=== PATIENT | female | born 1990 | race Caucasian/White ===

== ENCOUNTER 2018-08-10 01:41 | Emergency (ER) | payer SELFPAY ==
[2018-08-10] MEDS ORDERED: NA CHLORIDE 0.9% 1,000 ML ONE (02:25)
[2018-08-10 02:32] LABS: Specific Gravity 1.025 (1.005-1.030)
[2018-08-10 03:03] LABS: Absolute Lymphocytes (CBC) 2.4 K/uL (0.7-4.9); Absolute Monocytes 0.6 K/uL (0.1-1.3); Absolute Neutrophil 4.3 K/uL (1.8-8.0); Eosinophils % 8.4 % (0-4.4); Lymphocytes % 29.4 % (15.3-44.8); Monocytes % 7.8 % (3.3-12.3); RBC Red Blood Cell Count 4.82 M/uL (3.86-4.86)
[2018-08-10 03:20] LABS: Albumin 3.7 g/dL (3.4-5.0); Bilirubin Total 0.3 mg/dL (0.2-1.0); Potassium 3.9 mmol/L (3.5-5.1); Protein, Total 7.5 g/dL (6.4-8.2)
--- NOTE | 2018-08-10 03:33 | EDPHYS ---
Physician Documentation [facility] Name: Cristina Le Age: 28 yrs Sex: Female : 1990 Arrival Date: 08/10/2018 Time: 01:44 Bed 15 Private MD: ED Physician Niko Leon HPI: 08/10 02:11 This 28 yrs old Female presents to ER via Ambulatory with complaints of High Blood pm1 Sugar. 02:11 The patient or guardian reports hyperglycemia, that was potentially precipitated by no pm1 particular event, Treatment prior to arrival includes: taking additional insulin. Onset: The symptoms/episode began/occurred today. Associated signs and symptoms: Pertinent positives: neuropathy to feet gets worse, Pertinent negatives: diarrhea, nausea, vomiting. Current symptoms: In the emergency department the patient's symptoms have improved. The patient has experienced similar episodes in the past, multiple times. The patient has not recently seen a physician. Patient with blood sugar reading of high prior to arrival and then she took additional insulin. On arrival [id number]. 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 - Social history:: Smoking status: Patient/guardian denies using tobacco, Patient uses alcohol, occasionally. Patient/guardian denies using street drugs. - Ebola Screening: : Patient negative for fever greater than or equal to 101.5 degrees Fahrenheit, and additional compatible Ebola Virus Disease symptoms Patient denies exposure to infectious person Patient denies travel to an Ebola-affected area in the 21 days before illness onset. ROS: 02:11 Constitutional: Negative for fever, chills, and weight loss, Eyes: Negative for injury, pm1 pain, redness, and discharge, ENT: Negative for injury, pain, and discharge, Neck: Negative for injury, pain, and swelling, Cardiovascular: Negative for chest pain, palpitations, and edema, Respiratory: Negative for shortness of breath, cough, wheezing, and pleuritic chest pain, Abdomen/GI: Negative for abdominal pain, nausea, vomiting, diarrhea, and constipation, Back: Negative for injury and pain, : Negative for injury, bleeding, discharge, and swelling, MS/Extremity: Negative for injury and deformity, Skin: Negative for injury, rash, and discoloration, Neuro: Negative for headache, weakness, numbness, tingling, and seizure. 02:11 Endocrine: Positive for Hyperglycemia. Exam: 02:11 Constitutional: This is a well developed, well nourished patient who is awake, alert, pm1 and in no acute distress. Head/Face: Normocephalic, atraumatic. Eyes: Pupils equal round and reactive to light, extra-ocular motions intact. Lids and lashes normal. Conjunctiva and sclera are non-icteric and not injected. Cornea within normal limits. Periorbital areas with no swelling, redness, or edema. ENT: Nares patent. No nasal discharge, no septal abnormalities noted. Tympanic membranes are normal and external auditory canals are clear. Oropharynx with no redness, swelling, or masses, exudates, or evidence of obstruction, uvula midline. Mucous membranes moist. Neck: Trachea midline, no thyromegaly or masses palpated, and no cervical lymphadenopathy. Supple, full range of motion without nuchal rigidity, or vertebral point tenderness. No Meningismus. Chest/axilla: Normal chest wall appearance and motion. Nontender with no deformity. No lesions are appreciated. Cardiovascular: Regular rate and rhythm with a normal S1 and S2. No gallops, murmurs, or rubs. Normal PMI, no JVD. No pulse deficits. Respiratory: Lungs have equal breath sounds bilaterally, clear to auscultation and percussion. No rales, rhonchi or wheezes noted. No increased work of breathing, no retractions or nasal flaring. Abdomen/GI: Soft, non-tender, with normal bowel sounds. No distension or tympany. No guarding or rebound. No evidence of tenderness throughout. Back: No spinal tenderness. No costovertebral tenderness. Full range of motion. Skin: Warm, dry with normal turgor. Normal color with no rashes, no lesions, and no evidence of cellulitis. MS/ Extremity: Pulses equal, no cyanosis. Neurovascular intact. Full, normal range of motion. 02:11 Neuro: Orientation: is normal, Motor: is normal, moves all fours. Vital Signs: 02:00 BP 109 / 82; Pulse 110; Resp 22; Temp 98.3; Pulse Ox 100% ; Weight 52.16 kg; Height 4 rr5 ft. 10 in. (147.32 cm); Pain 5/10; 03:00 BP 110 / 72; Pulse 102; Resp 21; Pulse Ox 99% ; rr5 03:58 BP 115 / 70; Pulse 95; Resp 18; Pulse Ox 100% ; rr5 02:00 Body Mass Index 24.03 (52.16 kg, 147.32 cm) rr5 MDM: 02:07 Patient medically screened. pm1 02:13 Data reviewed: vital signs. Data interpreted: Pulse oximetry: on room air is 100 %. pm1 Interpretation: normal. 03:32 Counseling: I had a detailed discussion with the patient and/or guardian regarding: the pm1 historical points, exam findings, and any diagnostic results supporting the discharge/admit diagnosis, lab results, the need for outpatient follow up, to return to the emergency department if symptoms worsen or persist or if there are any questions or concerns that arise at home. 08/10 02:10 Order name: CBC with Diff; Complete Time: 03:26 pm1 08/10 02:10 Order name: CMP; Complete Time: 03:26 pm1 08/10 02:10 Order name: IV Saline Lock; Complete Time: 02:57 pm1 08/10 02:11 Order name: Urine Dipstick-Ancillary (obtain specimen); Complete Time: 02:20 pm1 08/10 02:27 Order name: Test, Urine; Complete Time: 02:35 EDMS Administered Medications: 02:57 Drug: NS 0.9% 1000 ml Route: IV; Rate: 1000 ml; Site: right hand; rr5 04:00 Follow up: Response: No adverse reaction; IV Status: Completed infusion; IV Intake: rr5 1000ml Point of Care Testing: Blood Glucose: 02:05 Blood Glucose: 276 mg/dL; rr5 03:57 Blood Glucose: 163 mg/dL; rr5 Ranges: Critical Glucose Levels:Adult <50 mg/dl or >400 mg/dl <40 mg/dl or >180 mg/dl Disposition: 08/10/18 03:32 Discharged to Home. Impression: Hyperglycemia, unspecified. - Condition is Stable. - Discharge Instructions: Hyperglycemia, Blood Glucose Monitoring, Adult. - Medication Reconciliation Form, Thank You Letter form. - Follow up: Emergency Department; When: As needed; Reason: Worsening of condition. Follow up: Private Physician; When: 2 - 3 days; Reason: Recheck today's complaints, Continuance of care, Re-evaluation by your physician. - Problem is new. - Symptoms have improved. Addendum: 08/15/2018 11:33 Co-signature as Attending Physician, Niko Leon MD I agree with the assessment and c emerson plan of care. Signatures: Dispatcher [employer] Niko Estrada MD MD cha Marinas, Patrick, PATTERNMAKER HELPER PATTERNMAKER HELPER pm1 Chris Yang RN RN rr5 Corrections: (The following items were deleted from the chart) 08/10 04:01 03:32 08/10/2018 03:32 Discharged to Home. Impression: Hyperglycemia, unspecified. rr5 Condition is Stable. Forms are Medication Reconciliation Form, Thank You Letter, Antibiotic Education, Prescription Opioid Use. Follow up: Emergency Department; When: As needed; Reason: Worsening of condition. Follow up: Private Physician; When: 2 - 3 days; Reason: Recheck today's complaints, Continuance of care, Re-evaluation by your physician. Problem is new. Symptoms have improved. pm1
--- NOTE | 2018-08-10 03:33 | ER ---
Nurse's Notes [facility] Name: Cristina Le Age: 28 yrs Sex: Female : 1990 Arrival Date: 08/10/2018 Time: 01:44 Bed 15 Private MD: Diagnosis: Hyperglycemia, unspecified Presentation: 08/10 01:56 Presenting complaint: Patient states: not feeling well. I checked my blood sugar at rr5 1243H its 540 mg/dl then repeat at 0149 545mg/dl. nerve pain at lower extremities central chest pain non radiating, pain score of 5/10. I feel nauseated. Transition of care: patient was not received from another setting of care. Onset of symptoms was August 10, 2018. Risk Assessment: Do you want to hurt yourself or someone else? Patient reports no desire to harm self or others. Initial Sepsis Screen: Does the patient meet any 2 criteria? No. Patient's initial sepsis screen is negative. Does the patient have a suspected source of infection? No. Patient's initial sepsis screen is negative. 01:56 Method Of Arrival: Ambulatory rr5 01:56 Acuity: KM 3 rr5 01:56 Care prior to arrival: Medication(s) given: injected SQ humalog and lantus at home. 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 - Social history:: Smoking status: Patient/guardian denies using tobacco, Patient uses alcohol, occasionally. Patient/guardian denies using street drugs. - Ebola Screening: : Patient negative for fever greater than or equal to 101.5 degrees Fahrenheit, and additional compatible Ebola Virus Disease symptoms Patient denies exposure to infectious person Patient denies travel to an Ebola-affected area in the 21 days before illness onset. Screenin:10 Abuse screen: Denies threats or abuse. Denies injuries from another. Nutritional rr5 screening: No deficits noted. Tuberculosis screening: No symptoms or risk factors identified. Fall Risk IV access (20 points). Total Reece Fall Scale indicates No Risk (0-24 pts). Assessment: 02:05 General: Appears in no apparent distress. uncomfortable, Behavior is calm, cooperative, rr5 appropriate for age. Pain: Complains of pain in chest, right leg and left leg Pain does not radiate. Pain currently is 5 out of 10 on a pain scale. Quality of pain is described as aching, Pain began 30 min ago. Is intermittent. Neuro: Level of Consciousness is awake, alert, obeys commands, Oriented to person, place, time, situation. Cardiovascular: Capillary refill < 3 seconds Patient's skin is warm and dry. Cardiovascular: Reports chest pain. Respiratory: Airway is patent Respiratory effort is even, unlabored, Respiratory pattern is regular, symmetrical. GI: Abdomen is round non-distended, Reports nausea. : Reports urinary frequency. EENT: No signs and/or symptoms were reported regarding the EENT system. Derm: Skin is intact, Skin temperature is warm. Musculoskeletal: Circulation, motion, and sensation intact. Capillary refill < 3 seconds, Range of motion: intact in all extremities. 02:30 Reassessment: Patient appears in no apparent distress at this time. No changes from rr5 previously documented assessment. hard stick patient was not able to insert and draw blood. 03:58 Reassessment: Patient appears in no apparent distress at this time. Patient and/or rr5 family updated on plan of care and expected duration. Pain level reassessed. discharge instruction given and explained to patient without complaints made. Patient states feeling better. Patient states symptoms have improved. Vital Signs: 02:00 BP 109 / 82; Pulse 110; Resp 22; Temp 98.3; Pulse Ox 100% ; Weight 52.16 kg; Height 4 rr5 ft. 10 in. (147.32 cm); Pain 12/22; 03:00 BP 110 / 72; Pulse 102; Resp 21; Pulse Ox 99% ; rr5 03:58 BP 115 / 70; Pulse 95; Resp 18; Pulse Ox 100% ; rr5 02:00 Body Mass Index 24.03 (52.16 kg, 147.32 cm) rr5 ED Course: 01:44 Patient arrived in ED. ag3 01:56 Chris Yang, RN is Primary Nurse. rr5 02:00 Triage completed. rr5 02:05 Arm band placed on right wrist. rr5 02:07 Jason Oneal NP is PHCP. pm1 02:07 Niko Leon MD is Attending Physician. pm1 02:10 Patient has correct armband on for positive identification. Bed in low position. Call rr5 light in reach. Side rails up X 1. 02:10 Pulse ox on. NIBP on. rr5 03:00 Inserted saline lock: 24 gauge in right hand, using aseptic technique. Blood collected. rr5 03:58 No provider procedures requiring assistance completed. IV discontinued, bleeding rr5 controlled, No redness/swelling at site. Pressure dressing applied. Administered Medications: 02:57 Drug: NS 0.9% 1000 ml Route: IV; Rate: 1000 ml; Site: right hand; rr5 04:00 Follow up: Response: No adverse reaction; IV Status: Completed infusion; IV Intake: rr5 1000ml Point of Care Testing: Blood Glucose: 02:05 Blood Glucose: 276 mg/dL; rr5 03:57 Blood Glucose: 163 mg/dL; rr5 Ranges: Intake: 04:00 IV: 1000ml; Total: 1000ml. rr5 Outcome: 03:32 Discharge ordered by . pm1 03:59 Discharged to home ambulatory. rr5 03:59 Condition: stable 03:59 Discharge instructions given to patient, Instructed on discharge instructions, follow up and referral plans. Demonstrated understanding of instructions, follow-up care. 04:01 Patient left the ED. rr5 Signatures: Jason Oneal NP COMMISSIONS MANAGER pm1 Ayse Briggs ag3 Chris Yang, RN RN rr5
--- NOTE | 2018-08-10 08:59 | EKG ---
Test Date: 2018-08-10 Test Time: 01:58:35 Roller Shop Supervisor: PRESTON MEASUREMENT RESULTS: Intervals: Rate: 108 CO: 126 QRSD: 74 QT: 324 QTc: 434 [place]: P: 55 CO: 126 QRS: 66 T: 25 INTERPRETIVE STATEMENTS: Sinus tachycardia Possible Left atrial enlargement Nonspecific T wave abnormality Abnormal ECG No previous ECG available for comparison Electronically Signed On 08-10-18 08:57:52 SHOE REPAIRER HELPER by Leodan Arboleda
== END 2018-08-10 04:01 | disposition home or self-care (01) ==
LOC: ER 01:41
DX: E11.65 Type 2 diabetes mellitus with hyperglycemia (principal); E11.40 Type 2 diabetes mellitus with diabetic neuropathy, unspecified; M19.90 Unspecified osteoarthritis, unspecified site; Z79.4 Long term (current) use of insulin
CPT/HCPCS: 36415; 80053; 81025; 82962; 85025; 93005; 96360; 99284; J7030

== ENCOUNTER → 2018-10-05 | Emergency (ER) | payer SELFPAY ==
[~2018-10-05] MED LIST: D5 0.45 NS 1,000 ML IV SCH; D50W 25 GM/50 ML SYRINGE IV PRN; D5W 1,000 ML IV ONE; D5W 1,000 ML IV SCH; ENOXAPARIN 40 MG/0.4 ML SQ SCH; FAMOTIDINE 20 MG TAB PO SCH; GLUCAGON 1 MG/VIAL IM PRN; INSULIN -REGULAR HUMAN 100 UNIT in NA CHLORIDE 0.9% 100 ML IV SCH; INSULIN -REGULAR HUMAN 50 UNIT/0.5 ML ML ONE; INSULIN -REGULAR HUMAN 50 UNIT/0.5 ML ML SQ SCH; INSULIN GLARGINE 100 UNITS/ML SQ SCH; NA CHLORIDE 0.9% 1,000 ML IV ONE; NA CHLORIDE 0.9% 1,000 ML IV SCH; NA CHLORIDE 0.9% 1,000 ML ONE; NA CHLORIDE 0.9% 100 ML IV ONE; NACHLORIDE 0.45% 1,000 ML IV SCH; ONDANSETRON 4 MG/2 ML VIAL IV PRN; ONDANSETRON 4 MG/2 ML VIAL ONE
--- OUTSIDE RECORDS SUMMARY | 2018-10-05 19:31 | XMS REPORT ---
:1990 Author Organization [facility] Address [address] [place] [address] Care Team Providers Name Role Phone Unavailable Unavailable Unavailable Payers Payer Name Policy Type Policy Number Effective Date Expiration Date Problems This patient has no known problems. Allergies, Adverse Reactions, Alerts Allergy Name Allergy Status Severity Reaction(s) Onset Inactive Treating Comments Type Date Date Clinician Penicillins DA Active U 03-21 00:00: 00 Sulfa DA Active U (Sulfonamide 03-21 Antibiotics) 00:00: 00 ibuprofen DA Active U 03-21 00:00: 00 sulfamethoxazol DA Active SV 2017-0 e 03-21 00:00: 00 trimethoprim DA Active SV 03-21 00:00: 00 penicillin G DA Active U 03-21 00:00: 00 shellfish DA Active SV 2017-0 derived 03-21 00:00: 00 spinach DA Active MO 8 00:00: 00 MUSHROOMS DA Active MO 2- 00:00: 00 Medications This patient has no known medications.
--- OUTSIDE RECORDS SUMMARY | 2018-10-05 19:31 | XMS REPORT | Clinical Summary ---
:1990 Author Organization [facility] Address [address] [place] [id number] Care Team Providers Name Role Phone Provider, Unknown Primary Care Provider Unavailable Allergies Active Allergy Reactions Severity Noted Date Comments Ibuprofen 11/15/2017 Sulfa (Sulfonamide Antibiotics) 11/15/2017 Medications No known medications Active Problems Not on file Encounters Date Type Specialty Care Team Description 11/15/2017 Emergency Emergency Medicine Jason Arndt Type 1 diabetes mellitus with complication (Primary Dx); MD Ernie Lower abdominal pain after 10/04/2017 Social History Tobacco Use Types Packs/Day Years Used Date Never Smoker Smokeless Tobacco: Never Used Alcohol Use Drinks/Week oz/Week Comments Yes occasional Sex Assigned at Date Recorded Not on file Job Start Date Occupation Industry Not on file Not on file Not on file Travel History Travel Start Travel End No recent travel history available. Last Filed Vital Signs Vital Sign Reading Time Taken Blood Pressure 115/72 11/15/2017 4:48 AM CDT Pulse 100 11/15/2017 4:48 AM CDT Temperature 36.7 C (98 F) 11/15/2017 4:48 AM CDT Respiratory Rate 18 11/15/2017 4:48 AM CDT Oxygen Saturation 97% 11/15/2017 4:48 AM CDT Inhaled Oxygen Concentration - - Weight 54.7 kg (120 lb 9 oz) 11/15/2017 4:48 AM CDT Height 149.2 cm (4' 10.75") 11/15/2017 4:48 AM CDT Body Mass Index 24.56 11/15/2017 4:48 AM CDT Plan of Treatment Not on file Procedures Procedure Name Priority Date/Time Associated Diagnosis Comments POC GLUCOSE Routine 11/15/2017 4:50 AM Results for this CDT procedure are in the results section. after 10/04/2017 Results POC glucose (11/15/2017 4:50 AM CDT) POC glucose 307 (H) 65 - 99 mg/dL [facility] DEPARTMENT OF PATHOLOGY Comment: AND GENOMIC MEDICINE Meter ID: [id number] Bin Tripper Operator: Poly Villa DRYING OVEN ATTENDANT Performing Organization Address City/State/Zipcode Phone Number [facility] DEPARTMENT OF PATHOLOGY AND [id number] [facility]. [address] [place] [address] [employer] MEDICINE after 10/04/2017 Advance Directives Patient has advance care planning documents on file. For more information, please contact:[place] [address]
[2018-10-05 21:31] LABS: Urine Bacteria <20 /HPF (<20); Urine Culture Reflex Order NOT NEEDED; Urine Mucus 1+ /HPF (NONE SEEN)
[2018-10-05 21:31] LABS: Urine Blood 1+ (NEG); Urine Glucose 2+ (NEG); Urine Protein TRACE (NEG); Urine Specific Gravity 1.025 (1.005-1.030)
[2018-10-05 22:01] LABS: Absolute Lymphocytes (CBC) 1.9 K/uL (0.7-4.9); Absolute Monocytes 0.4 K/uL (0.1-1.3); Absolute Neutrophil 6.7 K/uL (1.8-8.0); Basophils % 1.2 % (0-1.3); Eosinophils % 3.3 % (0-4.4); Hematocrit 45.1 % (36.0-45.0); Lymphocytes % 19.7 % (15.3-44.8); MPV 9.3 fL (7.6-11.3); Monocytes % 4.1 % (3.3-12.3); RBC Red Blood Cell Count 5.12 M/uL (3.86-4.86)
[2018-10-05 22:23] LABS: Albumin 4.3 g/dL (3.4-5.0); Bilirubin Direct 0.2 mg/dL (0-0.2); Bilirubin Total 0.8 mg/dL (0.2-1.0); Potassium 4.1 mmol/L (3.5-5.1); Protein, Total 8.6 g/dL (6.4-8.2)
--- NOTE | 2018-10-05 23:24 | ER ---
Nurse's Notes [facility] Name: Cristina Le Age: 28 yrs Sex: Female : 1990 Arrival Date: 10/05/2018 Time: 19:31 Bed 19 Private MD: Diagnosis: Type 1 diabetes mellitus with ketoacidosis Presentation: 10/05 19:40 Presenting complaint: EMS states: hyperglycemia with a blood glucose reading of 394 cc3 mg/dL, nausea, polyuria, polydipsia; patient ran out of test strips since Tuesday so she's not able to check her blood sugar level and not able to take her insulin shots since then. Transition of care: patient was not received from another setting of care. Onset of symptoms was October 05, 2018. Risk Assessment: Do you want to hurt yourself or someone else? Patient reports no desire to harm self or others. Risk Assessment: Do you want to hurt yourself or someone else?. Initial Sepsis Screen: Does the patient meet any 2 criteria? No. Patient's initial sepsis screen is negative. Does the patient have a suspected source of infection? No. Patient's initial sepsis screen is negative. Care prior to arrival: None. 19:40 Method Of Arrival: EMS: [facility] cc3 19:40 Acuity: KM 3 cc3 Triage Assessment: 19:40 General: Appears in no apparent distress. uncomfortable, Behavior is calm, cooperative, cc3 appropriate for age. Pain: Complains of pain in head. EENT: No signs and/or symptoms were reported regarding the EENT system. Neuro: Level of Consciousness is awake, alert, obeys commands, Oriented to person, place, time, situation, Appropriate for age. Cardiovascular: Denies chest pain. Respiratory: Airway is patent Respiratory effort is even, unlabored, Respiratory pattern is regular, symmetrical. GI: Abdomen is flat, non-distended. : Reports polyuria. Derm: No signs and/or symptoms reported regarding the dermatologic system. Musculoskeletal: Circulation, motion, and sensation intact. Range of motion: intact in all extremities. 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 - Social history:: Smoking status: smokes vape. - Ebola Screening: : No symptoms or risks identified at this time. Screenin:40 Abuse screen: Denies threats or abuse. Denies injuries from another. Nutritional cc3 screening: No deficits noted. Tuberculosis screening: No symptoms or risk factors identified. Fall Risk Ambulatory Aid- None/Bed Rest/Nurse Assist (0 pts). Gait- Normal/Bed Rest/Wheelchair (0 pts) Mental Status- Oriented to own ability (0 pts). Assessment: 19:37 General: see triage assessment. cc3 20:18 Reassessment: Patient appears in no apparent distress at this time. Patient and/or cc3 family updated on plan of care and expected duration. Pain level reassessed. Patient is alert, oriented x 3, equal unlabored respirations, skin warm/dry/pink. 21:25 Reassessment: Patient appears in no apparent distress at this time. Patient and/or cc3 family updated on plan of care and expected duration. Pain level reassessed. Patient is alert, oriented x 3, equal unlabored respirations, skin warm/dry/pink. 22:18 Reassessment: Patient appears in no apparent distress at this time. Patient and/or cc3 family updated on plan of care and expected duration. Pain level reassessed. Patient is alert, oriented x 3, equal unlabored respirations, skin warm/dry/pink. 23:18 Reassessment: Patient appears in no apparent distress at this time. Patient and/or cc3 family updated on plan of care and expected duration. Pain level reassessed. Patient is alert, oriented x 3, equal unlabored respirations, skin warm/dry/pink. 10/06 00:25 Reassessment: Patient appears in no apparent distress at this time. Patient and/or cc3 family updated on plan of care and expected duration. Pain level reassessed. Patient is alert, oriented x 3, equal unlabored respirations, skin warm/dry/pink. 01:30 Reassessment: Patient appears in no apparent distress at this time. Patient and/or cc3 family updated on plan of care and expected duration. Pain level reassessed. Patient is alert, oriented x 3, equal unlabored respirations, skin warm/dry/pink. Patient ER hold now, charting continued in [facility]. 04:30 Reassessment: Dr. Mckenna came and ordered to discontinue the insulin infusion at cc3 0900H in the morning, to give stat Lantus now as ordered in the MAR, discontinue now the D5% IV fluid and start on IV fluid of NS at 100 mL/hr. Vital Signs: 10/05 19:40 BP 126 / 79; Pulse 102; Resp 19 S; Temp 97.6(O); Pulse Ox 100% on R/A; Weight 52.16 kg cc3 (R); Height 4 ft. 10 in. (147.32 cm) (R); 20:25 BP 108 / 80; Pulse 102; Resp 20 S; Pulse Ox 100% on R/A; cc3 21:52 BP 119 / 80; Pulse 99; Resp 20 S; Pulse Ox 100% on R/A; cc3 22:15 BP 115 / 84; Pulse 96; Resp 20 S; Pulse Ox 100% on R/A; cc3 23:00 BP 115 / 81; Pulse 113; Resp 20; Pulse Ox 100% on R/A; oe 02 00:00 BP 107 / 75; Pulse 113; Resp 16; Pulse Ox 100% on R/A; oe 01:00 BP 114 / 78; Pulse 109; Resp 12; Pulse Ox 100% on R/A; oe 02:00 BP 111 / 75; Pulse 106; Resp 18; Pulse Ox 100% on R/A; oe 03:00 BP 104 / 68; Pulse 98; Resp 19; Pulse Ox 100% on R/A; oe 04:00 BP 100 / 62; Pulse 87; Resp 16; Pulse Ox 100% on R/A; oe 10/05 19:40 Body Mass Index 24.03 (52.16 kg, 147.32 cm) 3 ED Course: 10/05 19:31 Patient arrived in ED. ds1 19:31 Tommy Viera MD is Attending Physician. gs 19:37 Pretty Ovalles is Primary Nurse. cc3 19:40 Arm band placed on right wrist. Patient notified of wait time. cc3 19:40 Patient has correct armband on for positive identification. Placed in gown. Bed in low cc3 position. Call light in reach. Side rails up X 1. hall monitor on. Pulse ox on. NIBP on. 20:02 Triage completed. cc3 21:40 Inserted saline lock: 20 gauge in right upper arm, using aseptic technique. ,using cc3 aseptic technique. midline Blood collected. inserted by Charge Nurse Kirstie. 22:25 Notified ED physician of a critical lab result(s). bicarb is 13. fc 23:23 Sarah Donald MD is Hospitalizing Provider. 10/06 07:00 Report given to YOAN Amaya. cc3 12:03 Attending Physician role handed off by Tommy Viera MD tw2 Administered Medications: 10/05 20:25 Drug: Insulin Regular Human 10 units {Co-Signature: ls4 (Azra Mike RN).} Route: cc3 Sub-Q; Site: right upper arm; 21:00 Follow up: Response: No adverse reaction cc3 21:45 Drug: NS 0.9% 1000 ml {Note: given by YOAN Thacker.} Route: IV; Rate: 1 bolus; Site: [facility]; 22:50 Follow up: Response: No adverse reaction; IV Status: Completed infusion; IV Intake: cc3 1000ml 21:45 Drug: Zofran 4 mg {Note: given by YOAN Thacker.} Route: IVP; Site: right upper arm; [facility] 10/06 06:41 Follow up: Response: No adverse reaction [facility] 10/05 23:30 Drug: Insulin Drip - (Insulin Regular Human 100 units, NS 0.9% 100 ml) {Co-Signature: cc3 tl3 (Kavitha Tavera RN).} Route: IV; Rate: calculated rate; Site: right upper arm; 10/06 01:30 Follow up: IV Status: Infusion continued upon admission cc3 Point of Care Testing: Blood Glucose: 10/05 19:42 Blood Glucose: 361 mg/dL; cc3 21:25 Blood Glucose: 358 mg/dL; cc3 10/06 00:39 Blood Glucose: 204 mg/dL; cc3 02:00 Blood Glucose: 136 mg/dL; cc3 03:19 Blood Glucose: 240 mg/dL; cc3 05:25 Blood Glucose: 188 mg/dL; ag4 06:27 Blood Glucose: 175 mg/dL; oe Ranges: Intake: 10/05 22:50 IV: 1000ml; Total: 1000ml. cc3 Outcome: 23:24 Decision to Hospitalize by Provider. 10/06 11:48 Patient left the ED. jennyfer 12:03 Patient left the ED. tw2 Signatures: Kirstie Delatorre RN RN Mónica Garcia ds1 Mattie Blanco RN RN tw2 Balwinder Fishman Gregory, MD MD Tala Bridges Charlene cc3 Timothy Triana ag4 Azra Mike RN ls4 Kavitha Tavera RN tl3 Corrections: (The following items were deleted from the chart) 02:15 02:05 Blood Glucose: Blood Glucose Hikxvol=339 mg/dL. cc3 cc3
--- NOTE | 2018-10-05 23:24 | EDPHYS ---
Physician Documentation [facility] Name: Cristina Le Age: 28 yrs Sex: Female : 1990 Arrival Date: 10/05/2018 Time: 19:31 Bed 19 Private MD: ED Physician HPI: 10/05 23:18 This 28 yrs old Female presents to ER via EMS with complaints of bs high. gs 23:18 The patient or guardian reports hyperglycemia, that was potentially precipitated by gs stopped insulin because couldn't check her bs. Onset: The symptoms/episode began/occurred yesterday. Associated signs and symptoms: Pertinent positives: nausea. Current symptoms: In the emergency department the patient's symptoms are unchanged from the initial presentation. The patient has experienced similar episodes in the past, several times. The patient has not recently seen a physician. 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 - Social history:: Smoking status: smokes vape. - Ebola Screening: : No symptoms or risks identified at this time. ROS: 23:18 All other systems are negative. gs Exam: 23:18 Head/Face: Normocephalic, atraumatic. Eyes: Pupils equal round and reactive to light, gs extra-ocular motions intact. Lids and lashes normal. Conjunctiva and sclera are non-icteric and not injected. Cornea within normal limits. Periorbital areas with no swelling, redness, or edema. ENT: Nares patent. No nasal discharge, no septal abnormalities noted. Tympanic membranes are normal and external auditory canals are clear. Oropharynx with no redness, swelling, or masses, exudates, or evidence of obstruction, uvula midline. Mucous membranes moist. Neck: Trachea midline, no thyromegaly or masses palpated, and no cervical lymphadenopathy. Supple, full range of motion without nuchal rigidity, or vertebral point tenderness. No Meningismus. Chest/axilla: Normal chest wall appearance and motion. Nontender with no deformity. No lesions are appreciated. Respiratory: Lungs have equal breath sounds bilaterally, clear to auscultation and percussion. No rales, rhonchi or wheezes noted. No increased work of breathing, no retractions or nasal flaring. Abdomen/GI: Soft, non-tender, with normal bowel sounds. No distension or tympany. No guarding or rebound. No evidence of tenderness throughout. Back: No spinal tenderness. No costovertebral tenderness. Full range of motion. Skin: Warm, dry with normal turgor. Normal color with no rashes, no lesions, and no evidence of cellulitis. MS/ Extremity: Pulses equal, no cyanosis. Neurovascular intact. Full, normal range of motion. Neuro: Awake and alert, GCS 15, oriented to person, place, time, and situation. Cranial nerves II-XII grossly intact. Motor strength 5/5 in all extremities. Sensory grossly intact. Cerebellar exam normal. Normal gait. 23:18 Constitutional: The patient appears in no acute distress, alert, awake. 23:18 Cardiovascular: Rate: tachycardic, Rhythm: regular, Pulses: no pulse deficits are appreciated. Vital Signs: 19:40 BP 126 / 79; Pulse 102; Resp 19 S; Temp 97.6(O); Pulse Ox 100% on R/A; Weight 52.16 kg cc3 (R); Height 4 ft. 10 in. (147.32 cm) (R); 20:25 BP 108 / 80; Pulse 102; Resp 20 S; Pulse Ox 100% on R/A; cc3 21:52 BP 119 / 80; Pulse 99; Resp 20 S; Pulse Ox 100% on R/A; cc3 22:15 BP 115 / 84; Pulse 96; Resp 20 S; Pulse Ox 100% on R/A; cc3 23:00 BP 115 / 81; Pulse 113; Resp 20; Pulse Ox 100% on R/A; oe 10/06 00:00 BP 107 / 75; Pulse 113; Resp 16; Pulse Ox 100% on R/A; oe 01:00 BP 114 / 78; Pulse 109; Resp 12; Pulse Ox 100% on R/A; oe 02:00 BP 111 / 75; Pulse 106; Resp 18; Pulse Ox 100% on R/A; oe 03:00 BP 104 / 68; Pulse 98; Resp 19; Pulse Ox 100% on R/A; oe 04:00 BP 100 / 62; Pulse 87; Resp 16; Pulse Ox 100% on R/A; oe 10/05 19:40 Body Mass Index 24.03 (52.16 kg, 147.32 cm) cc3 MDM: 10/05 19:48 Patient medically screened. gs 23:18 Differential diagnosis: DKA, hyperglycemia. Data reviewed: vital signs, nurses notes. gs Data reviewed: lab test result(s), radiologic studies. Response to treatment: the patient's symptoms have mildly improved after treatment, and as a result, I will admit patient. 10/05 20:00 Order name: Basic Metabolic Panel; Complete Time: 23:04 10/05 20:00 Order name: CBC with Diff; Complete Time: 23:04 10/05 20:00 Order name: Hepatic Function; Complete Time: 23:04 10/05 20:00 Order name: Lipase; Complete Time: 23:04 10/05 20:00 Order name: Urine Microscopic Only; Complete Time: 21:59 10/05 21:21 Order name: Urine Dipstick--Ancillary (enter results) ca 10/05 21:21 Order name: Urine --Ancillary (enter results) ca 10/05 21:32 Order name: Urine --Ancillary; Complete Time: 21:59 EDCA 10/05 21:32 Order name: Urine Dipstick-Ancillary; Complete Time: 21:59 EDCA 10/05 23:04 Order name: ABG 10/05 23:31 Order name: ABG Arterial Blood Gas EDCA 10/06 03:25 Order name: Basic Metabolic Panel [facility] 10/06 07:03 Order name: Glucose, Ancillary Testing EDCA 10/06 07:03 Order name: Glucose, Ancillary Testing EDCA 10/06 07:03 Order name: Glucose, Ancillary Testing [facility] 10/06 07:03 Order name: Glucose, Ancillary Testing [facility] 10/06 07:04 Order name: Glucose, Ancillary Testing [facility] 10/06 07:04 Order name: Glucose, Ancillary Testing [facility] 10/06 07:04 Order name: Glucose, Ancillary Testing EDMS 10/06 07:10 Order name: Basic Metabolic Panel [facility] 10/06 07:14 Order name: Lipid Profile [facility] 10/06 07:49 Order name: ABG Arterial Blood Gas [facility] 10/06 07:52 Order name: Glucose, Ancillary Testing [facility] 10/06 08:08 Order name: Thyroid Stimulating Hormone [facility] 10/06 08:28 Order name: Hemoglobin A1c [facility] 10/06 08:32 Order name: Glucose, Ancillary Testing [facility] 10/05 20:00 Order name: IV Saline Lock; Complete Time: 22:12 gs 10/05 20:00 Order name: Labs collected and sent; Complete Time: 22:12 gs 10/05 20:00 Order name: Urine Test (obtain specimen); Complete Time: 22:12 10/05 20:00 Order name: Urine Dipstick-Ancillary (obtain specimen); Complete Time: 22:12 gs Administered Medications: 20:25 Drug: Insulin Regular Human 10 units {Co-Signature: ls4 (Azra Mike RN).} Route: cc3 Sub-Q; Site: [facility]; 21:00 Follow up: Response: No adverse reaction [facility] 21:45 Drug: NS 0.9% 1000 ml {Note: given by YOAN Thacker.} Route: IV; Rate: 1 bolus; Site: [address]; 22:50 Follow up: Response: No adverse reaction; IV Status: Completed infusion; IV Intake: cc3 1000ml 21:45 Drug: Zofran 4 mg {Note: given by YOAN Thacker.} Route: IVP; Site: [facility]; [facility] 10/06 06:41 Follow up: Response: No adverse reaction [facility] 10/05 23:30 Drug: Insulin Drip - (Insulin Regular Human 100 units, NS 0.9% 100 ml) {Co-Signature: cc3 tl3 (Kavitha Tavera RN).} Route: IV; Rate: calculated rate; Site: [facility]; 10/06 01:30 Follow up: IV Status: Infusion continued upon admission 3 Point of Care Testing: Blood Glucose: 10/05 19:42 Blood Glucose: 361 mg/dL; cc3 21:25 Blood Glucose: 358 mg/dL; cc3 10/06 00:39 Blood Glucose: 204 mg/dL; cc3 02:00 Blood Glucose: 136 mg/dL; cc3 03:19 Blood Glucose: 240 mg/dL; cc3 05:25 Blood Glucose: 188 mg/dL; ag4 06:27 Blood Glucose: 175 mg/dL; oe Ranges: Critical Glucose Levels:Adult <50 mg/dl or >400 mg/dl <40 mg/dl or >180 mg/dl Disposition: 10/05/18 23:24 Hospitalization ordered by Sarah Donald for Inpatient Admission. Preliminary diagnosis is Type 1 diabetes mellitus with ketoacidosis. - Bed requested for [facility] ER HOLD. - Status is Inpatient Admission. tw2 - Condition is Stable. - Problem is new. - Symptoms are unchanged. UTI on Admission? No Critical care time excluding procedures: 10/05 23:25 Critical care time: Bedside Care: 10 minutes, Consultation: 10 minutes, Family gs Intervention: 10 minutes. Total time: 30 minutes Signatures: Dispatcher [employer] EDMS Jody Monteiro RN RN Mattie Blanco RN RN tw2 Tommy Viera MD MD gs Botello, Elizabeth eb Cordel, Charlene cc3 Azra Mike RN ls4 Kavitha Tavera RN tl3 Corrections: (The following items were deleted from the chart) 23:33 23:24 Hospitalization Ordered by Sarah Donald MD for Inpatient Admission. Preliminary diagnosis is Type 1 diabetes mellitus with ketoacidosis. Bed requested for Telemetry/MedSurg (Inpatient). Status is Inpatient Admission. Condition is Stable. Problem is new. Symptoms are unchanged. UTI on Admission? No. gs 10/06 11:48 10/05 23:33 10/05/2018 23:24 Hospitalization Ordered by Sarah Donald MD for Inpatient eb Admission. Preliminary diagnosis is Type 1 diabetes mellitus with ketoacidosis. Bed requested for [facility] ER HOLD. Status is Inpatient Admission. Condition is Stable. Problem is new. Symptoms are unchanged. UTI on Admission? No. kl 10/06 12:03 11:48 10/05/2018 23:24 Hospitalization Ordered by Sarah Donald MD for Inpatient tw2 Admission. Preliminary diagnosis is Type 1 diabetes mellitus with ketoacidosis. Bed requested for [facility] ER HOLD. Status is Inpatient Admission. Condition is Stable. Problem is new. Symptoms are unchanged. UTI on Admission? No. eb
[2018-10-05 23:28] LABS: Arterial Blood Carboxyhemoglob 1.6 % (0-1.5); Blood Gas Oxyhemoglobin 94.5 % (94-97)
--- NOTE | 2018-10-05 23:55 | P.HP ---
Certification for Inpatient Patient admitted to: Inpatient With expected LOS: >2 Midnights Practitioner: I am a practitioner with admitting privileges, knowledge of patient current condition, hospital course, and medical plan of care. Services: Services provided to patient in accordance with Admission requirements found in Title 42 Section 412.3 of the Code of Federal Regulations Patient History Date of Service: 10/05/18 Reason for admission: DKA History of Present Illness: Ms Coombs is a 28 years old woman with history of DM I, previous episodes of DKA mostly admitted at [facility], who finish her BS strips 2 days ago, and since so, she has been not using her insulin. Today she started with abdominal pain, weakness, nausea and vomiting. Her BS was 394 mg/dl. She denied any fever , chills or sweating episodes. In ER her BS was 363 mg.dl CO2 13, anion gap 20. Clinical presentation consistent with DKA. Home medications list reviewed: Yes - Past Medical/Surgical History -: diabetes mellitus I Past Surgical History: Reviewed- Non-Contributory - Family History Family History: Reviewed- Non-Contributory - Social History Smoking Status: Current every day smoker (vape) CD- Drugs: No Place of Residence: Home Review of Systems 10-point ROS is otherwise unremarkable Physical Examination - Physical Exam General: Alert, In no apparent distress HEENT: Atraumatic, PERRLA, Mucous membr. moist/pink, EOMI, Sclerae nonicteric Neck: Supple, 2+ carotid pulse no bruit, No LAD, Without JVD or thyroid abnormality Respiratory: Clear to auscultation bilaterally, Normal air movement Cardiovascular: Regular rate/rhythm, Normal S1 S2 Gastrointestinal: Normal bowel sounds, No tenderness Musculoskeletal: No tenderness Integumentary: No rashes Neurological: Normal gait, Normal speech, Normal strength at 5/5 x4 extr, Normal tone, Normal affect Lymphatics: No axilla or inguinal lymphadenopathy - Studies Laboratory Data (last 24 hrs) 10/05/18 21:40: WBC 9.4, Hgb 14.8, Hct 45.1 H, Plt Count 321 10/05/18 21:40: Sodium 134 L, Potassium 4.1, BUN 23 H, Creatinine 0.94, Glucose 363 H, Total Bilirubin 0.8, AST 6 L, ALT 18, Alkaline Phosphatase 93, Lipase 96 Assessment and Plan - Problems (Diagnosis) (1) DKA, type 1 Current Visit: Yes Status: Acute (2) Diabetes mellitus Current Visit: Yes Status: Acute Qualifiers: Diabetes mellitus type: type 1 Diabetes mellitus complication status: with unspecified complications Qualified Code(s): E10.8 - Type 1 diabetes mellitus with unspecified complications - Plan Will admit the patient to ICU, start IV fluids and insulin drip per DKA protocol. Replace electrolytes as needed. Check HgbA1c. - Advance Directives Does patient have a Living Will: No Does patient have a Durable POA for Healthcare: No - Code Status/Comfort Care Code Status Assessed: Yes Code Status: Full Code Critical Care: Yes (40 minutes)
[2018-10-06 03:24] LABS: BUN Blood Urea Nitrogen 19 mg/dL (7-18); Bicarbonate 19 mmol/L (21-32); Glucose Level 187 mg/dL (74-106); Potassium 3.9 mmol/L (3.5-5.1); Sodium Level 139 mmol/L (136-145)
[2018-10-06 07:09] LABS: BUN Blood Urea Nitrogen 14 mg/dL (7-18); Bicarbonate 20 mmol/L (21-32); Glucose Level 154 mg/dL (74-106); Potassium 3.7 mmol/L (3.5-5.1); Sodium Level 137 mmol/L (136-145)
[2018-10-06 07:48] LABS: Arterial Blood Carboxyhemoglob 1.5 % (0-1.5); Blood Gas Oxyhemoglobin 95.6 % (94-97); Blood O2 Saturation 98.1 % (92-98.5)
--- NOTE | 2018-10-06 10:42 | P.DS ---
Admission Date: 10/05/18 Discharge Date: 10/06/18 Primary Care Provider: none Disposition: ROUTINE DISCHARGE Discharge Condition: GOOD Reason for Admission: DKA Consultations: none Procedures: Medical Problem List: Diabetic ketoacidosis with history of type 1 diabetes Brief History of Present Illness: 28-year-old female presented emergency room with nausea, vomiting. Patient was evaluated in the emergency room. She was found to be in diabetic ketoacidosis. Patient has diabetes type 1. She is new to the area. Patient was admitted for treatment. Hospital Course: Patient admitted for diabetic ketoacidosis. Patient admitted for treatment. Patient did well. Diabetic ketoacidosis resolved. Patient is new to the area. Patient to be discharged. Will have social insurance analyst provide information on new PCPs in the area so that she can establish care. Will also provide information on patient assistance to help get her medication. At discharge she will continue with Lantus 15 units subcu twice daily and Humalog mild sliding scale. Patient previously on these 2 medications. Recommend to follow up with a PCP within 1 week to follow up this hospitalization and continue her care. Will also recommend that she establish care with endocrinology at [facility] to further address and monitor her diabetes. Hemoglobin A1c 10.5. Diabetic ketoacidosis education and type 1 diabetes education provided. Vital Signs/Physical Exam: Temp Pulse Resp BP Pulse Ox 98.7 F 100 H 20 102/81 100 10/06/18 07:00 10/06/18 08:00 10/06/18 08:00 10/06/18 08:00 10/06/18 08:00 General: Alert, In no apparent distress, Oriented x3, Cooperative HEENT: Atraumatic Neck: Supple Respiratory: Clear to auscultation bilaterally, Normal air movement Cardiovascular: Normal pulses, Regular rate/rhythm Gastrointestinal: Normal bowel sounds, Soft and benign, Non-distended, No tenderness, No masses, No rebound, No guarding Musculoskeletal: No contractures, No erythema, No tenderness, No warmth Integumentary: No tenderness/swelling, No erythema, No warmth, No cyanosis Neurological: Normal speech, Normal strength at 5/5 x4 extr, Normal tone, Normal affect Laboratory Data at Discharge: WBC 9.4 K/uL (4.3-10.9) 10/05/18 21:40 Hgb 14.8 g/dL (12.0-15.0) 10/05/18 21:40 Hct 45.1 % (36.0-45.0) H 10/05/18 21:40 Plt Count 321 K/uL (152-406) 10/05/18 21:40 Sodium 137 mmol/L (136-145) 10/06/18 06:35 Potassium 3.7 mmol/L (3.5-5.1) 10/06/18 06:35 BUN 14 mg/dL (7-18) 10/06/18 06:35 Creatinine 0.64 mg/dL (0.55-1.3) 10/06/18 06:35 Glucose 154 mg/dL (74-106) H 10/06/18 06:35 Total Bilirubin 0.8 mg/dL (0.2-1.0) 10/05/18 21:40 AST 6 U/L (15-37) L 10/05/18 21:40 ALT 18 U/L (12-78) 10/05/18 21:40 Alkaline Phosphatase 93 U/L (45-117) 10/05/18 21:40 Triglycerides 177 mg/dL (<150) H 10/06/18 06:35 Cholesterol 268 mg/dL (<200) H 10/06/18 06:35 HDL Cholesterol 48 mg/dL (40-60) 10/06/18 06:35 Cholesterol/HDL Ratio 5.58 10/06/18 06:35 Lipase 96 U/L (73-393) 10/05/18 21:40 Home Medications: Insulin Glargine Human [Lantus] 15 unit SQ BID #1 vial 10/06/18 New Medications: Insulin Glargine Human [Lantus] 15 unit SQ BID #1 vial Patient Discharge Instructions: 1. Patient will need to follow up with a PCP to establish care. 2. Patient admitted for diabetic ketoacidosis. Patient admitted for treatment. Patient did well. Diabetic ketoacidosis resolved. Patient is new to the area. Patient to be discharged. Will have social insurance analyst provide information on new PCPs in the area so that she can establish care. Will also provide information on patient assistance to help get her medication. At discharge she will continue with Lantus 15 units subcu twice daily and Humalog mild sliding scale. Patient previously on these 2 medications. Recommend to follow up with a PCP within 1 week to follow up this hospitalization and continue her care. Will also recommend that she establish care with endocrinology at [facility] to further address and monitor her diabetes. Hemoglobin A1c 10.5. Diabetic ketoacidosis education and type 1 diabetes education provided. Diet: ADA Activity: Ad latosha Time spent managing pt's care (in minutes): 55
== END ==
LOC: ER 19:29 → ERHOLD 23:36 → UNDOADMIN 23:36 → UNDODISIN 10-06 11:54
DX: E10.10 Type 1 diabetes mellitus with ketoacidosis without coma (principal); Z72.0 Tobacco use; Z79.4 Long term (current) use of insulin; Z88.0 Allergy status to penicillin; Z88.2 Allergy status to sulfonamides; Z88.6 Allergy status to analgesic agent; Z88.8 Allergy status to other drugs, medicaments and biological substances; Z91.018 Allergy to other foods
CPT/HCPCS: 36415; 80048; 80076; 81003; 81015; 81025; 82805; 82962; 83036; 83690; 85025; 96361; 96365; 96366; 96372; 96375; 99285; J2405; J7030

== ENCOUNTER 2018-10-29 04:43 | Inpatient (IN) | payer OTHER, SELFPAY ==
--- OUTSIDE RECORDS SUMMARY | 2018-10-29 04:45 | XMS REPORT ---
:1990 Author Organization [facility] Address [address] [place] [address] Care Team Providers Name Role Phone Unavailable [...] 03-21 00:00: 00 spinach DA Active MO 0 8 00:00: 00 MUSHROOMS DA Active MO 2- 00:00: 00 Medications This patient has no known medications.
--- OUTSIDE RECORDS SUMMARY | 2018-10-29 04:45 | XMS REPORT | Clinical Summary ---
:1990 Author Organization [facility] Address [address] [place] [id number] Care Team Providers Name Role Phone Provider, Unknown Primary Care Provider Unavailable Allergies Active Allergy Reactions Severity Noted Date Comments Ibuprofen 11/15/2017 Sulfa (Sulfonamide Antibiotics) 11/15/2017 Medications No known medications Active Problems Not on file Encounters Date Type Specialty Care Team Description 11/15/2017 Emergency Emergency Medicine Jason Arndt Type 1 diabetes mellitus with complication (Primary Dx); MD Ernie Lower abdominal pain after 10/28/2017 Social History Tobacco Use Types Packs/Day Years [...] procedure are in the results section. after 10/28/2017 Results POC glucose (11/15/2017 4:50 AM CDT) POC glucose 307 (H) 65 - 99 mg/dL [facility] DEPARTMENT OF PATHOLOGY Comment: AND GENOMIC MEDICINE Meter ID: [id number] Home Care Physical Therapist: Poly Villa RADIOLOGY TECHNOLOGIST Performing Organization Address City/State/Zipcode Phone Number [facility] DEPARTMENT OF PATHOLOGY AND [address] [facility] [place] [address] [employer] MEDICINE after 10/28/2017 Advance Directives Patient has advance care planning documents on file. For more information, please contact:[place] [address]
[2018-10-29] MEDS ORDERED: NA CHLORIDE 0.9% 1,000 ML ONE (05:18)
[2018-10-29 05:26] LABS: Arterial Blood Carboxyhemoglob 1.9 % (0-1.5); Blood Gas Oxyhemoglobin 95.6 % (94-97); Blood O2 Saturation 98.4 % (92-98.5)
[2018-10-29 06:15] LABS: Urine Bacteria 20-50 /HPF (<20); Urine Culture Reflex Order REFLEXED; Urine RBC <5 /HPF (NONE SEEN)
[2018-10-29 06:26] LABS: Urine Blood 2+ (NEG); Urine Glucose 2+ (NEG); Urine Protein 2+ (NEG); Urine Specific Gravity 1.025 (1.005-1.030); Urine pH 5.5 (5.0-7.0)
[2018-10-29 06:26] LABS: Urine Specific Gravity 1.025 (1.005-1.030)
[2018-10-29 06:42] LABS: Absolute Lymphocytes (CBC) 1.1 K/uL (0.7-4.9); Absolute Monocytes 1.4 K/uL (0.1-1.3); Absolute Neutrophil 8.1 K/uL (1.8-8.0); Basophils % 0.7 % (0-1.3); Eosinophils % 0.5 % (0-4.4); Hematocrit 36.1 % (36.0-45.0); Lymphocytes % 10.3 % (15.3-44.8); MPV 9.2 fL (7.6-11.3); Monocytes % 13.2 % (3.3-12.3); RBC Red Blood Cell Count 4.12 M/uL (3.86-4.86)
[2018-10-29] MEDS ORDERED: CEFTRIAXONE/SWI 1gm 1 GM/10 ML SYR ONE (06:42)
[2018-10-29 07:07] LABS: ALT/SGPT 11 U/L (12-78); AST/SGOT 6 U/L (15-37); Alkaline Phosphatase 129 U/L (45-117); BUN Blood Urea Nitrogen 8 mg/dL (7-18); Bilirubin Total 0.7 mg/dL (0.2-1.0); Glucose Level 202 mg/dL (74-106); Potassium 3.7 mmol/L (3.5-5.1); Protein, Total 7.3 g/dL (6.4-8.2); Sodium Level 137 mmol/L (136-145)
[2018-10-29 07:08] LABS: Bicarbonate 12 mmol/L (21-32)
[2018-10-29] MEDS ORDERED: ONDANSETRON 4 MG/2 ML VIAL IV PRN (07:13)
[2018-10-29] MEDS ORDERED: GLUCAGON 1 MG/VIAL IM PRN ×3 (07:16→14:33)
[2018-10-29] MEDS ORDERED: D50W 25 GM/50 ML SYRINGE IV PRN ×3 (07:16→14:33)
[2018-10-29] MEDS ORDERED: INSULIN -REGULAR HUMAN 100 UNIT in NA CHLORIDE 0.9% 100 ML IV SCH ×2 (07:30→08:00)
--- NOTE | 2018-10-29 07:33 | EDPHYS ---
Physician Documentation [facility] Name: Cristina Le Age: 28 yrs Sex: Female : 1990 Arrival Date: 10/29/2018 Time: 04:44 Bed 4 Private MD: ED Physician Jesus Antunez HPI: 10/29 06:48 This 28 yrs old Female presents to ER via Ambulatory with complaints of ps1 Possible DKA. 06:48 patient is a non-compliant type 1 diabetic. Adhoc insulin use. Intermittent blood sugar ps1 checking. Gives 15U Novalog ad latosha if BS>300 or feels bad. Poor historian. States that she hasnt felt well for last 24 hours. Symptoms associated with fatigue, palpitations, and n/v.. 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 - Social history:: Smoking status: Patient uses tobacco products, vape. - Ebola Screening: : Patient negative for fever greater than or equal to 101.5 degrees Fahrenheit, and additional compatible Ebola Virus Disease symptoms. ROS: 06:50 Eyes: Negative for injury, pain, redness, and discharge, ENT: Negative for injury, ps1 pain, and discharge, Neck: Negative for injury, pain, and swelling, Back: Negative for injury and pain, Skin: Negative for injury, rash, and discoloration, Neuro: Negative for headache, weakness, numbness, tingling, and seizure, Psych: Negative for depression, anxiety, suicide ideation, homicidal ideation, and hallucinations. 06:50 Constitutional: Positive for fatigue, malaise. 06:50 Cardiovascular: Positive for palpitations. 06:50 Abdomen/GI: Positive for nausea and vomiting. Exam: 06:50 Constitutional: This is a well developed, well nourished patient who is awake, alert, ps1 and in no acute distress. Head/Face: Normocephalic, atraumatic. Eyes: Pupils equal round and reactive to light, extra-ocular motions intact. Lids and lashes normal. Conjunctiva and sclera are non-icteric and not injected. Chest/axilla: Normal chest wall appearance and motion. Nontender with no deformity. No lesions are appreciated. Respiratory: Lungs have equal breath sounds bilaterally, clear to auscultation and percussion. No rales, rhonchi or wheezes noted. No increased work of breathing, no retractions or nasal flaring. Abdomen/GI: Soft, non-tender, with normal bowel sounds. No distension or tympany. No guarding or rebound. No evidence of tenderness throughout. Skin: Warm, dry with normal turgor. Normal color with no rashes, no lesions, and no evidence of cellulitis. MS/ Extremity: Pulses equal, no cyanosis. Neurovascular intact. Full, normal range of motion. Neuro: Awake and alert, GCS 15, oriented to person, place, time, and situation. Cranial nerves II-XII grossly intact. Sensory grossly intact. Psych: Awake, alert, with orientation to person, place and time. Behavior, mood, and affect are within normal limits. 06:50 Cardiovascular: Rate: tachycardic, Rhythm: regular, Pulses: no pulse deficits are appreciated. Vital Signs: 05:04 BP 114 / 80; Pulse 126; Resp 18 S; Temp 97.4(O); Pulse Ox 100% on R/A; Weight 52.16 kg jd3 (R); Height 4 ft. 10 in. (147.32 cm) (R); Pain 5/10; 06:43 BP 123 / 79; Pulse 102; Resp 19; Pulse Ox 100% on R/A; ea 07:45 BP 107 / 67; Pulse 105; Resp 17; Pulse Ox 100% on R/A; hb 05:04 Body Mass Index 24.03 (52.16 kg, 147.32 cm) jd3 MDM: 04:51 Patient medically screened. ps1 07:31 Differential diagnosis: DKA, hyperglycemia. Data reviewed: vital signs, nurses notes, internal affairs investigator test result(s), and as a result, I will admit patient. Counseling: I had a detailed discussion with the patient and/or guardian regarding: the historical points, exam findings, and any diagnostic results supporting the discharge/admit diagnosis, lab results, the need for further work-up and treatment in the hospital. Response to treatment: the patient's symptoms have mildly improved after treatment, and as a result, I will admit patient. Admission orders: after a detailed discussion of the patient's condition and case, the admit orders are written by me. ED course: Dr. Covington at bedside for admission. 10/29 04:51 Order name: Blood Culture Adult (2) ps1 10/29 04:51 Order name: CBC with Diff; Complete Time: 07:08 ps1 10/29 04:51 Order name: Lactate; Complete Time: 06:54 ps1 10/29 04:51 Order name: Lipase; Complete Time: 07:08 ps1 10/29 04:51 Order name: Procalcitonin; Complete Time: 07:22 ps1 10/29 04:51 Order name: Urine Microscopic Only; Complete Time: 06:18 ps1 10/29 04:51 Order name: ABG; Complete Time: 05:43 ps1 10/29 05:24 Order name: Urine Dipstick--Ancillary (enter results); Complete Time: 06:31 lt1 10/29 05:26 Order name: Urine --Ancillary (enter results); Complete Time: 06:31 lt1 10/29 05:27 Order name: CMP; Complete Time: 07:08 ps1 10/29 06:18 Order name: Urine Culture EDMS 10/29 07:17 Order name: Acetone Level; Complete Time: 12:32 EDMS 10/29 07:17 Order name: Acetone Level EDMS 10/29 04:51 Order name: Chest Single View XRAY; Complete Time: 12:32 ps1 10/29 07:17 Order name: Acetone Level EDMS 10/29 07:17 Order name: Basic Metabolic Panel EDMS 10/29 07:17 Order name: Basic Metabolic Panel EDMS 10/29 07:17 Order name: Basic Metabolic Panel EDMS 10/29 08:47 Order name: Glucose, Ancillary Testing; Complete Time: 12:32 EDMS 10/29 08:50 Order name: Glucose, Ancillary Testing; Complete Time: 12:32 EDMS 10/29 09:50 Order name: Glucose, Ancillary Testing; Complete Time: 12:32 EDMS 10/29 10:56 Order name: Glucose, Ancillary Testing; Complete Time: 12:32 EDCT 10/29 12:09 Order name: BMP aa5 10/29 13:00 Order name: Glucose, Ancillary Testing EDCT 10/29 13:00 Order name: Glucose, Ancillary Testing EDCT 10/29 13:44 Order name: Basic Metabolic Panel EDCT 10/29 14:22 Order name: Glucose, Ancillary Testing EDCT 10/29 04:51 Order name: Urine Test (obtain specimen); Complete Time: 06:25 [facility] 10/29 04:51 Order name: Accucheck; Complete Time: 05:00 [facility] 10/29 04:51 Order name: Cardiac monitoring; Complete Time: 06:25 [facility] 10/29 04:51 Order name: EKG - Nurse/Tech; Complete Time: 06:25 [facility] 10/29 04:51 Order name: IV Saline Lock - Large Bore; Complete Time: 06:37 [facility] 10/29 04:51 Order name: Labs collected and sent; Complete Time: 06:26 [facility] 10/29 04:51 Order name: O2 Per Protocol; Complete Time: 06:25 [facility] 10/29 04:51 Order name: O2 Sat Monitoring; Complete Time: 06:26 [facility] 10/29 04:51 Order name: Urine Dipstick-Ancillary (obtain specimen); Complete Time: 06:40 [facility] 10/29 07:18 Order name: CONS Pharmacy Consult EDCT 10/29 07:18 Order name: NPO EDCT 10/29 14:46 Order name: Diet Ada [address]; Complete Time: 14:46 hb EC:22 Rate is 108 beats/min. Rhythm is regular. Right axis deviation noted. AL interval is ps1 normal. QRS interval is normal. QT interval is normal. No Q waves. T waves are Normal. No ST changes noted. Clinical impression: RAD, sinus tachycardia. Reviewed by me. Administered Medications: 06:37 Drug: Rocephin - (cefTRIAXone) 1 grams {Note: right upper arm.} Route: IVPB; Infused ea Over: 30 mins; Site: Other; 08:08 Follow up: IV Status: Completed infusion hj 06:39 Drug: NS 0.9% (30 ml/kg) 30 ml/kg Route: IV; Rate: bolus; Site: right upper arm; ea 07:00 Follow up: IV Status: Completed infusion hj 07:45 Drug: Insulin Drip - (Insulin Regular Human 100 units, NS 0.9% 100 ml) {Co-Signature: sander romero (Jose Hanson RN).} Route: IV; Rate: calculated rate; Site: right antecubital; 08:08 Follow up: IV Status: Infusion continued hj 08:45 Follow up: Rate change 3 units/hr hb 07:45 Drug: D5-1/2 NS with KCl 20 mEq/L 1000 ml Route: IV; Rate: 150 ml/hr; Site: right hb antecubital; 08:08 Follow up: IV Status: Infusion continued hj 08:45 Follow up: Rate change 200 ml/hr hb Point of Care Testing: Blood Glucose: 05:09 Blood Glucose: 240 mg/dL; jd3 12:13 Blood Glucose: 122 mg/dL; pc1 Ranges: Critical Glucose Levels:Adult <50 mg/dl or >400 mg/dl <40 mg/dl or >180 mg/dl Disposition: 10/29/18 07:32 Hospitalization ordered by Shraddha Covington for Inpatient Admission. Preliminary diagnosis are Other specified diabetes mellitus with ketoacidosis, Dehydration. - Bed requested for Telemetry/MedSurg (Inpatient). - Status is Inpatient Admission. hb - Condition is Stable. - Problem is new. - Symptoms have improved. UTI on Admission? Yes Signatures: Dispatcher [employer] [facility] Whit Han RN RN dw Nieto, Roman, MD MD rn Joaquin, Henry, RN RN hj Baxter, Heather, RN RN hb Antunez, Elena, RN RN ea Davies, Jonathon, RN RN jd3 Singer, Phillip, MD MD [facility] Tala Bridges Jose romero Corrections: (The following items were deleted from the chart) 06:34 04:52 BASIC METABOLIC PANEL+C.LAB.BRZ ordered. EDCT EDCT 06:51 06:48 patient is a non-compliant type 1 diabetic. Adhoc insulin use. Intermittent blood ps1 sugar checking. Gives 15U Novalog ad latosha if BS>300 or feels bad. Poor historian. States that she hasnt felt well for last 24 hours. . ps1 07:32 07:32 Hospitalization Ordered by Shraddha Covington MD for Inpatient Admission. Preliminary rn diagnosis is Other specified diabetes mellitus with ketoacidosis; Dehydration. Bed requested for Telemetry/MedSurg (Inpatient). Status is Inpatient Admission. Condition is Stable. Problem is new. Symptoms have improved. UTI on Admission? No. rn 08:32 07:32 10/29/2018 07:32 Hospitalization Ordered by Shraddha Covington MD for Inpatient eb Admission. Preliminary diagnosis is Other specified diabetes mellitus with ketoacidosis; Dehydration. Bed requested for Telemetry/MedSurg (Inpatient). Status is Inpatient Admission. Condition is Stable. Problem is new. Symptoms have improved. UTI on Admission? Yes. rn 09:32 08:32 10/29/2018 07:32 Hospitalization Ordered by Shraddha Covington MD for Inpatient hj Admission. Preliminary diagnosis is Other specified diabetes mellitus with ketoacidosis; Dehydration. Bed requested for [facility] ER HOLD. Status is Inpatient Admission. Condition is Stable. Problem is new. Symptoms have improved. UTI on Admission? Yes. eb 14:20 09:32 10/29/2018 07:32 Hospitalization Ordered by Shraddha Covington MD for Inpatient dw Admission. Preliminary diagnosis is Other specified diabetes mellitus with ketoacidosis; Dehydration. Bed requested for [facility] ER HOLD. Status is Inpatient Admission. Condition is Stable. Problem is new. Symptoms have improved. UTI on Admission? Yes. hj 16:59 14:20 10/29/2018 07:32 Hospitalization Ordered by Shraddha Covington MD for Inpatient hb Admission. Preliminary diagnosis is Other specified diabetes mellitus with ketoacidosis; Dehydration. Bed requested for Telemetry/MedSurg (Inpatient). Status is Inpatient Admission. Condition is Stable. Problem is new. Symptoms have improved. UTI on Admission? Yes. dw
--- NOTE | 2018-10-29 07:33 | ER ---
Nurse's Notes [facility] Name: Cristina Le Age: 28 yrs Sex: Female : 1990 Arrival Date: 10/29/2018 Time: 04:44 Bed 4 Private MD: Diagnosis: Other specified diabetes mellitus with ketoacidosis;Dehydration Presentation: 10/29 04:59 Presenting complaint: Patient states: "I have been feeling really bad for the past jd3 couple of days with nausea. I think I might be in DKA because my heart is racing and I only throw up when I am in DKA. my blood sugar was over 300 when I was at home and I tool 15 units of insulin.". Transition of care: patient was not received from another setting of care. Onset of symptoms was October 27, 2018. Risk Assessment: Do you want to hurt yourself or someone else? Patient reports no desire to harm self or others. Initial Sepsis Screen: Does the patient meet any 2 criteria? HR > 90 bpm. No. Patient's initial sepsis screen is negative. Does the patient have a suspected source of infection? No. Patient's initial sepsis screen is negative. Care prior to arrival: None. 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 - Social history:: Smoking status: Patient uses tobacco products, vape. - Ebola Screening: : Patient negative for fever greater than or equal to 101.5 degrees Fahrenheit, and additional compatible Ebola Virus Disease symptoms. Screenin:09 Abuse screen: Denies threats or abuse. Nutritional screening: No deficits noted. jd3 Tuberculosis screening: No symptoms or risk factors identified. Fall Risk Ambulatory Aid- None/Bed Rest/Nurse Assist (0 pts). Gait- Normal/Bed Rest/Wheelchair (0 pts) Mental Status- Oriented to own ability (0 pts). Total Reece Fall Scale indicates No Risk (0-24 pts). Assessment: 05:00 General: Appears in no apparent distress. Behavior is calm, cooperative, appropriate ea for age. Pain: Complains of pain in generalized pain. Neuro: Level of Consciousness is awake, alert, obeys commands, Oriented to person, place, time, situation. Cardiovascular: Patient's skin is warm and dry. Respiratory: Airway is patent Respiratory effort is even, unlabored, Respiratory pattern is regular, symmetrical. Derm: Skin is dry, Skin is pale, Skin temperature is warm. Musculoskeletal: Circulation, motion, and sensation intact. 06:43 Reassessment: Patient and/or family updated on plan of care and expected duration. Pain ea level reassessed. Patient is alert, oriented x 3, equal unlabored respirations, skin warm/dry/pink. Awaiting on lab results. 07:15 Reassessment: Patient appears in no apparent distress at this time. No changes from hb previously documented assessment. Patient and/or family updated on plan of care and expected duration. Pain level reassessed. 07:45 Reassessment: Insulin started at 5units/hr and D51/2+20KCL started at 150 mls/hras hb ordered. Dr. Davis at bedside. 08:49 Reassessment: BGL 126, Dr. Antunez notified, D51/2NS increased to 200ml.hr, insulin drip hb decreased to 3units/hr as ordered. Pt resting with eyes closed, easily arouses to verbal stimuli. VSS. Family remains at bedside. 09:00 Reassessment: [facility] hb Vital Signs: 05:04 BP 114 / 80; Pulse 126; Resp 18 S; Temp 97.4(O); Pulse Ox 100% on R/A; Weight 52.16 kg jd3 (R); Height 4 ft. 10 in. (147.32 cm) (R); Pain 5/10; 06:43 BP 123 / 79; Pulse 102; Resp 19; Pulse Ox 100% on R/A; ea 07:45 BP 107 / 67; Pulse 105; Resp 17; Pulse Ox 100% on R/A; hb 05:04 Body Mass Index 24.03 (52.16 kg, 147.32 cm) jd3 ED Course: 04:44 Patient arrived in ED. ds1 04:48 Petros Key MD is Attending Physician. ps1 04:59 Maria Isabel Goodwin, RN is Primary Nurse. ea 05:04 Triage completed. jd3 05:08 Arm band placed on. jd3 05:09 Patient has correct armband on for positive identification. Bed in low position. Call jd3 light in reach. Side rails up X 1. Adult w/ patient. 05:15 Chest Single View XRAY In Process Unspecified. EDMS 06:10 Missed attempt(s): 24 gauge in right hand. Bleeding controlled, band aid applied, ea catheter tip intact. 06:25 Initial lab(s) drawn, by me, sent to lab. Inserted 18 gauge 10 cm midline to right fc upper basilic vein on second attempt. Line with good blood return with 2 cm out. Flushes well. IV connected and free flows with no problems. 06:42 No provider procedures requiring assistance completed. ea 06:58 Attending Physician role handed off by Petros Key MD rn 06:58 Jesus Antunez MD is Attending Physician. rn 07:03 Report given to Jose MILTON. ea 07:31 Shraddha Covington MD is Hospitalizing Provider. rn 09:31 IV discontinued, intact, bleeding controlled, No redness/swelling at site. Pressure hj dressing applied. 09:34 Primary Nurse role handed off by Maria Isabel Goodwin RN hj 10:10 Jolene Owusu, RN is Primary Nurse. hb Administered Medications: 06:37 Drug: Rocephin - (cefTRIAXone) 1 grams {Note: right upper arm.} Route: IVPB; Infused ea Over: 30 mins; Site: Other; 08:08 Follow up: IV Status: Completed infusion hj 06:39 Drug: NS 0.9% (30 ml/kg) 30 ml/kg Route: IV; Rate: bolus; Site: right upper arm; ea 07:00 Follow up: IV Status: Completed infusion hj 07:45 Drug: Insulin Drip - (Insulin Regular Human 100 units, NS 0.9% 100 ml) {Co-Signature: hb hj (Jose Hanson RN).} Route: IV; Rate: calculated rate; Site: right antecubital; 08:08 Follow up: IV Status: Infusion continued hj 08:45 Follow up: Rate change 3 units/hr hb 07:45 Drug: D5-1/2 NS with KCl 20 mEq/L 1000 ml Route: IV; Rate: 150 ml/hr; Site: right hb antecubital; 08:08 Follow up: IV Status: Infusion continued 08:45 Follow up: Rate change 200 ml/hr hb Point of Care Testing: Blood Glucose: 05:09 Blood Glucose: 240 mg/dL; jd3 12:13 Blood Glucose: 122 mg/dL; pc1 Ranges: Outcome: 07:32 Decision to Hospitalize by Provider. rn 16:57 Attestation : I agree with previous assessments by Celi Chin. hb 16:57 Admitted to Med/surg accompanied by tech, via wheelchair, on monitor, with chart. 16:57 Condition: stable 16:57 Instructed on the need for admit, Demonstrated understanding of instructions. 16:59 Patient left the ED. hb Signatures: Dispatcher [employer] EDMD Kirstie Delatorre RN RN fc Sanford, Demi ds1 Jesus Antunez MD MD rn Joaquin, Henry, RN RN hj Baxter, Heather, RN RN Maria Isabel Goodwin RN RN ea Davies, Jonathon, RN RN jd3 Singer, Phillip, MD MD ps1 Cantu, Patrick pc1 Jose romero Corrections: (The following items were deleted from the chart) 08:53 08:53 Rate change 200 ml/hr hb hb 09:34 09:31 Condition: stable [facility] :34 09:31 Discharged to home ambulatory, [facility] :34 09:31 Discharge instructions given to patient, Instructed on discharge instructions, hj follow up and referral plans. medication usage, Demonstrated understanding of instructions, follow-up care, medications, Prescriptions given X 3, 09:34 09:32 Patient left the ED. [facility]
[2018-10-29] MEDS: D5 0.45 NS 1,000 ML IV SCH ×4 (07:45→21:20)
[2018-10-29] MEDS ORDERED: D5.45NS W/KCL 20MEQ 1,000 ML IV ONE ×2 (07:47→13:00)
[2018-10-29] MEDS: ENOXAPARIN 40 MG/0.4 ML SQ SCH (09:00)
--- NOTE | 2018-10-29 09:18 | RAD REPORT ---
EXAM DESCRIPTION: Rafael Single View10/29/2018 5:16 am CLINICAL HISTORY: Chest pain COMPARISON: none FINDINGS: The lungs appear clear of acute infiltrate. The heart is normal size IMPRESSION: No acute abnormalities displayed
[2018-10-29] MEDS ORDERED: PNEUMOCOCCAL VACCINE 0.5 ML IMVAC ONE (11:00)
--- NOTE | 2018-10-29 12:25 | EKG ---
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
[2018-10-29] MEDS ORDERED: ONDANSETRON 4 MG/2 ML VIAL ONE (13:00)
--- NOTE | 2018-10-29 13:28 | P.HP ---
Certification for Inpatient Patient admitted to: Inpatient With expected LOS: >2 Midnights Patient will require the following post-hospital care: None Practitioner: I am a practitioner with admitting privileges, knowledge of patient current condition, hospital course, and medical plan of care. Services: Services provided to patient in accordance with Admission requirements found in Title 42 Section 412.3 of the Code of Federal Regulations Patient History Date of Service: 10/29/18 Reason for admission: DIABETIC KETOACIDOSIS History of Present Illness: Patient is a 28-year-old female came to the hospital with intractable nausea and vomiting. She has also been having some abdominal discomfort. She has been checking her blood sugars. When she came to the emergency room she was acidotic. She also had elevated ketones in her urine. Her blood sugars were slightly elevated. She was admitted to the hospital for diabetic ketoacidosis. She was started on IV fluids and insulin drip. Will continue to monitor her at this time. Allergies ibuprofen Adverse Reaction (Verified 10/29/18 09:02) Nausea/Vomiting oseltamivir [From Tamiflu] Adverse Reaction (Verified 10/29/18 09:02) Hives/Rash Penicillins Adverse Reaction (Verified 10/29/18 09:02) Itching/Hives/Rash Sulfa (Sulfonamide Antibiotics) Adverse Reaction (Verified 10/29/18 09:02) Itching/Hives/Rash Home Medications: Insulin Glargine Human [Lantus] 15 unit SQ BID #1 vial 10/06/18 Gabapentin 600 mg PO TID 10/29/18 Insulin Lispro [Humalog*] 15 unit SQ DAILY WITH BREAKFAST 10/29/18 - Past Medical/Surgical History Diabetic: Yes -: diabetes mellitus I Past Surgical History: Patient denies surgical history - Family History Father Medical History: Diabetes - Social History Smoking Status: Never smoker Alcohol use: No CD- Drugs: No Caffeine use: No Place of Residence: Home Review of Systems 10-point ROS is otherwise unremarkable Physical Examination - Vital Signs Temperature: 97.4 F Blood Pressure: 112/72 Pulse: 98 Respirations: 16 Pulse Ox (%): 100 - Physical Exam General: Alert, In no apparent distress, Oriented x3, Other ( Patient smells ketotic) HEENT: Atraumatic, PERRLA, Mucous membr. moist/pink, EOMI, Sclerae nonicteric Neck: Supple, 2+ carotid pulse no bruit, No LAD, Without JVD or thyroid abnormality Respiratory: Clear to auscultation bilaterally, Normal air movement Cardiovascular: Regular rate/rhythm, Normal S1 S2 Gastrointestinal: Normal bowel sounds, Soft and benign, Non-distended, No ascites, No tenderness Musculoskeletal: No tenderness Integumentary: No rashes Neurological: Normal gait, Normal speech, Normal strength at 5/5 x4 extr, Normal tone, Normal affect Lymphatics: No axilla or inguinal lymphadenopathy - Studies Laboratory Data (last 24 hrs) 10/29/18 09:04: Sodium Cancelled, Potassium Cancelled, BUN Cancelled, Creatinine Cancelled, Glucose Cancelled 10/29/18 06:21: Sodium 137, Potassium 3.7, BUN 8, Creatinine 0.71, Glucose 202 H , Total Bilirubin 0.7, AST 6 L, ALT 11 L, Alkaline Phosphatase 129 H 10/29/18 06:21: WBC 10.7, Hgb 12.1, Hct 36.1, Plt Count 268 10/29/18 06:12: Sodium Cancelled, Potassium Cancelled, BUN Cancelled, Creatinine Cancelled, Glucose Cancelled, Lipase 53 L Assessment & Plan - Problems (Diagnosis) (1) DKA, type 1 Current Visit: No Status: Acute - Plan Plan: 1. Aggressive IV hydration 2. Insulin drip 3. Monitor electrolytes closely 4. Replace electrolytes as needed 5. Changed IV fluids once blood sugars are less than 250 6. Once anion gap is closed we will see if patient can tolerate a diet and if he does then we can give him his long-acting insulin and stop the insulin drip an hour later. Hydration we will depend on patient's volume status 7. GI and DVT prophylaxis Discharge Plan: Home Plan to discharge in: 48 Hours - Advance Directives Does patient have a Living Will: No Does patient have a Durable POA for Healthcare: No - Code Status/Comfort Care Code Status Assessed: Yes Code Status: Full Code Critical Care: No Time Spent Managing PTS Care (In Minutes): 45
[2018-10-29 13:44] LABS: BUN Blood Urea Nitrogen 7 mg/dL (7-18); Bicarbonate 18 mmol/L (21-32); Glucose Level 103 mg/dL (74-106); Potassium 3.4 mmol/L (3.5-5.1); Sodium Level 140 mmol/L (136-145)
[2018-10-29] MEDS ORDERED: INSULIN GLARGINE 100 UNITS/ML SQ ONE (15:00)
[2018-10-29] MEDS ORDERED: POTASSIUM CL SA 10 MEQ TAB PO ONE (16:25)
[2018-10-29] MEDS: INSULIN -REGULAR HUMAN 50 UNIT/0.5 ML ML SQ SCH ×2 (16:30→21:35)
[2018-10-29 19:35] LABS: Urine Appearance CLEAR; Urine Bilirubin NEGATIVE (NEG); Urine Blood 2+ (NEG); Urine Color YELLOW; Urine Glucose TRACE (NEG); Urine Protein 1+ (NEG)
[2018-10-29 19:56] LABS: Urine Microscopic Reflex ORDER UMIC
[2018-10-29 20:06] LABS: Urine Bacteria 20-50 /HPF (<20); Urine Culture Reflex Order REFLEXED
[2018-10-29 20:07] LABS: Urine Yeast FEW (NONE SEEN)
[2018-10-29] MEDS: GABAPENTIN 300 MG CAP PO SCH (20:17)
[2018-10-29] MEDS ORDERED: NA CHLORIDE 0.9% 1,000 ML IV SCH (23:00)
[2018-10-30 06:25] LABS: Absolute Lymphocytes (CBC) 1.8 K/uL (0.7-4.9); Absolute Monocytes 1.6 K/uL (0.1-1.3); Absolute Neutrophil 5.2 K/uL (1.8-8.0); Eosinophils % 2.4 % (0-4.4); Hematocrit 34.3 % (36.0-45.0); Lymphocytes % 20.1 % (15.3-44.8); MPV 9.1 fL (7.6-11.3); Monocytes % 18.3 % (3.3-12.3); RBC Red Blood Cell Count 4.01 M/uL (3.86-4.86)
[2018-10-30 07:29] LABS: BUN Blood Urea Nitrogen 4 mg/dL (7-18); Bicarbonate 17 mmol/L (21-32); Glucose Level 180 mg/dL (74-106); Phosphorus 1.7 mg/dL (2.5-4.9); Sodium Level 144 mmol/L (136-145)
[2018-10-30] MEDS: INSULIN -REGULAR HUMAN 50 UNIT/0.5 ML ML SQ SCH ×4 (07:30→21:44)
[2018-10-30 07:57] LABS: Blood Morphology Comment NOTED (NOT SEEN); Platelet Estimate ADEQ; Polychromasia 1+; Urine White Blood Cell Casts OK
[2018-10-30] MEDS: ENOXAPARIN 40 MG/0.4 ML SQ SCH (08:38)
[2018-10-30] MEDS: GABAPENTIN 300 MG CAP PO SCH ×3 (08:38→20:51)
[2018-10-30] MEDS: POTASS/SODIUM PHOSPHATE 1 PKT POWD.PACK PO SCH ×3 (11:13→12:56)
[2018-10-30] MEDS ORDERED: INSULIN GLARGINE 100 UNITS/ML SQ ONE (14:31)
[2018-10-30] MEDS: INSULIN GLARGINE 100 UNITS/ML SQ SCH (17:03)
[2018-10-30] MEDS: INSULIN LISPRO 100 UNIT/1 ML SQ SCH (17:04)
--- NOTE | 2018-10-30 17:42 | P.PN ---
Subjective Date of Service: 10/30/18 Chief Complaint: DIABETIC KETOACIDOSIS Subjective: No C/O voiced, Tolerating diet, Ambulating, Improving Patient seen and examined at bedside. No family at bedside. Chart reviewed and case discussed with nursing staff. Review of Systems 10-point ROS is otherwise unremarkable Physical Examination - Vital Signs Temperature: 98.5 F Blood Pressure: 118/71 Pulse: 97 Respirations: 16 Pulse Ox (%): 100 - Physical Exam General: Alert, In no apparent distress, Oriented x3 HEENT: Atraumatic, PERRLA, EOMI Neck: Supple, JVD not distended Respiratory: Clear to auscultation bilaterally, Normal air movement Cardiovascular: Regular rate/rhythm, Normal S1 S2 Gastrointestinal: Normal bowel sounds, No tenderness Musculoskeletal: No tenderness Integumentary: No rashes Neurological: Normal speech, Normal tone, Normal affect Lymphatics: No axilla or inguinal lymphadenopathy Assessment And Plan - Plan (1) DKA, type 1 Current Visit: No Status: Acute Patient admitted for DKA, type 1. She was started on insulin drip in the ER because of the anion gap. In the ER hold, while pending a bed upstairs in the ICU, her gap closed. She was transitioned to subQ insulin and transferred to the floor instead of ICU. She was started on diet, and was able to tolerate the diet. I restarted her on her home Lantus 15 units twice a day, Humulog 5 units with meals, and a mild sliding scale insulin. IV fluids discontinued today Continue to monitor blood sugars. Adjust insulin as needed Once improved, may be discharged home
[2018-10-31 06:49] LABS: Absolute Lymphocytes (CBC) 1.8 K/uL (0.7-4.9); Absolute Monocytes 0.8 K/uL (0.1-1.3); Absolute Neutrophil 2.9 K/uL (1.8-8.0); Basophils % 0.8 % (0-1.3); Eosinophils % 4.3 % (0-4.4); Hematocrit 33.8 % (36.0-45.0); Lymphocytes % 31.5 % (15.3-44.8); MPV 8.6 fL (7.6-11.3); Monocytes % 13.3 % (3.3-12.3); RBC Red Blood Cell Count 3.96 M/uL (3.86-4.86)
[2018-10-31 06:59] LABS: Magnesium 2.2 mg/dL (1.8-2.4); Phosphorus 2.5 mg/dL (2.5-4.9)
[2018-10-31] MEDS: INSULIN -REGULAR HUMAN 50 UNIT/0.5 ML ML SQ SCH ×4 (07:30→20:23)
[2018-10-31] MEDS ORDERED: INSULIN GLARGINE 100 UNITS/ML SQ SCH (08:00)
[2018-10-31] MEDS: INSULIN LISPRO 100 UNIT/1 ML SQ SCH ×3 (08:00→18:14)
[2018-10-31] MEDS: ENOXAPARIN 40 MG/0.4 ML SQ SCH (09:00)
[2018-10-31] MEDS: GABAPENTIN 300 MG CAP PO SCH ×3 (11:18→20:23)
[2018-10-31] MEDS: INSULIN GLARGINE 100 UNITS/ML SQ SCH (17:00)
--- NOTE | 2018-10-31 22:01 | PN ---
Date of Progress Note: 10/31/2018 Subjective: The patient is seen and examined. Chart reviewed and case discussed with RN. The patient's blood glucose level still fluctuating, was on the low side today. The patient does appears to be frustrated regarding lack of resources and asking for resources from child protective services social worker in order to establish care with primary care physician. The patient moved to this area over the past 6 months. Medications: List reviewed. Physical Examination: Vital Signs: Temperature 97.9, heart rate 108, blood pressure 101/62, respirations 16, O2 98% on room air. General: Awake, alert, oriented x3. Ill-appearing female, frail. CV: S1, S2. Sinus tachycardia. Peripheral pulses present. Respiratory: Moving air well bilaterally. No wheezing or stridor. Gastrointestinal: Abdomen is soft, nontender, nondistended. Positive bowel sounds. Extremities: No clubbing, cyanosis, or edema. Neurologic: Nonfocal. Laboratory Data: phosphorus 2.5, magnesium 2.2. WBC 5.7, H and H 11.9 and 33.8 , platelets 252. Blood glucose level low is 62 and ranging to as high as 364. Blood cultures, no growth to date. Urine culture shows mixed jayjay. Assessment And Plan: A 28-year-old female with: 1. Diabetic ketoacidosis. The patient is now off of insulin drip, now transition to subcutaneous insulin, however, continues to have some hypoglycemic episodes. We will keep on D5 half NS and adjust insulin dose. 2. Diabetes mellitus type 1 with diabetic ketoacidosis with long-term use of insulin. We will adjust insulin dose. Continue sliding scale. The patient still needs adjustments in her insulin. 3. Normocytic normochromic anemia, likely anemia of chronic disease. Plan: We will adjust insulin dose. Monitor blood glucose levels closely. Likely discharge in the next 24-48 hours depending on blood glucose levels. /HAWA Voice ID: [id number] Report ID: [id number] JAYLYN
[2018-11-01 04:55] LABS: Absolute Lymphocytes (CBC) 1.8 K/uL (0.7-4.9); Absolute Monocytes 0.6 K/uL (0.1-1.3); Absolute Neutrophil 4.1 K/uL (1.8-8.0); Basophils % 0.7 % (0-1.3); Eosinophils % 3.6 % (0-4.4); Lymphocytes % 26.9 % (15.3-44.8); MPV 8.7 fL (7.6-11.3); Monocytes % 8.6 % (3.3-12.3); RBC Red Blood Cell Count 3.71 M/uL (3.86-4.86)
[2018-11-01 05:20] LABS: BUN Blood Urea Nitrogen 12 mg/dL (7-18); Bicarbonate 28 mmol/L (21-32); Glucose Level 264 mg/dL (74-106); Potassium 3.6 mmol/L (3.5-5.1); Sodium Level 139 mmol/L (136-145)
[2018-11-01] MEDS ORDERED: POTASSIUM CL SA 10 MEQ TAB PO ONE (06:00)
[2018-11-01] MEDS: GABAPENTIN 300 MG CAP PO SCH ×2 (08:30→13:44)
[2018-11-01] MEDS: ENOXAPARIN 40 MG/0.4 ML SQ SCH ×2 (08:31→08:37)
[2018-11-01] MEDS: INSULIN LISPRO 100 UNIT/1 ML SQ SCH ×2 (08:31→11:53)
[2018-11-01] MEDS: INSULIN -REGULAR HUMAN 50 UNIT/0.5 ML ML SQ SCH ×2 (08:31→11:51)
[2018-11-01] MEDS ORDERED: FLUCONAZOLE 100 MG TAB PO ONE (12:52)
--- NOTE | 2018-11-02 07:33 | DS ---
Date of Discharge: 11/01/2018 Admitting Diagnoses: 1. Diabetic ketoacidosis. 2. Diabetes mellitus type 1 with diabetic ketoacidosis without coma. Discharge Diagnoses: 1. Diabetic ketoacidosis, resolved. 2. Diabetes mellitus type 1 with insulin requiring and hyperglycemia. 3. Normocytic normochromic anemia, likely anemia of chronic disease. Hospital Course: The patient is a 28-year-old female with type 1 diabetes, comes into the hospital with intractable nausea and vomiting. She states that she has not been able to buy her long-acting insulin, has been on the Novolin R which now she states is not working for her. The patient was on Indigent Care in [place]. Currently has been in the [facility] for 6 months. The patient was found to be in DKA. She was admitted to the ICU. She had an elevated anion gap and ketones were positive. The patient was started on IV insulin and her gap improved. She was acidotic with a pH of 7.3. White count remained stable. She did not have any pneumonia. However, she did have some UTI secondary to yeast. She was treated with Diflucan. Her urine culture remained negative. Blood culture was also negative to date. The patient was then transferred out of the ICU. She was switched over to subcutaneous insulin. The patient was seen by case management and financial services to help the patient with her medications. Unfortunately, she does not have a PCP. She is Medicaid pending. Her hearing is next month. She will need diabetic education as an outpatient. The patient will also need to follow up with an managing partner [employer] [place] when she is on Medicaid. The patient was then cleared for discharge once her blood sugars were more stable. She did have some episodes of hypoglycemia and insulin had to be adjusted. Medications: As per medication reconciliation list. Followup: Establish care with primary care physician in 1 week. Return to ER for worsening condition. Diet: Diabetic diet. Activity: As tolerated. Physical Examination: General: Awake, alert, oriented x3. No acute distress. CV: S1, S2. No murmurs. Respiratory: Moving air well bilaterally. No wheezing. Gastrointestinal: Abdomen is soft, nontender, nondistended. Positive bowel sounds. Extremities: No clubbing, cyanosis, or edema. Neurologic: Nonfocal. Total time spent discharging the patient was 35 minutes. /HAWA Voice ID: [id number] Report ID: [id number] MTDD
== END 2018-11-01 14:50 | disposition home or self-care (01) | DRG 638 ==
LOC: ER 04:43 → ERHOLD 07:14 → OBSVTOIN 10:22 → 4TH 16:20
PROVIDERS: ADMIT Hospitalist; ATTEND Hospitalist
DX: E10.10 Type 1 diabetes mellitus with ketoacidosis without coma (principal); B37.49 Other urogenital candidiasis; Z79.4 Long term (current) use of insulin; E10.65 Type 1 diabetes mellitus with hyperglycemia; D64.9 Anemia, unspecified; Z88.0 Allergy status to penicillin; Z88.2 Allergy status to sulfonamides
CPT/HCPCS: 36415; 71045; 80048; 80053; 81003; 81015; 81025; 82010; 82805; 82962; 83605; 83690; 83735; 84100; 84132; 84145; 85025; 87040; 87086; 87088; 93005; 99285; G0378; J0696; J1650; J2405; J7030

== ENCOUNTER 2018-11-29 11:38 | Inpatient (IN) | payer OTHER, SELFPAY ==
--- OUTSIDE RECORDS SUMMARY | 2018-11-29 11:52 | XMS REPORT | Clinical Summary ---
:1990 Author Organization [facility] Address [address] [place] [address] Care Team Providers Name Role Phone Provider, Unknown Primary Care Provider Unavailable Allergies Active Allergy Reactions Severity Noted Date Comments Ibuprofen 11/15/2017 Sulfa (Sulfonamide Antibiotics) 11/15/2017 Medications No known medications Active Problems Not on file Social History Tobacco Use Types Packs/Day Years Used Date Never Smoker Smokeless Tobacco: Never Used Alcohol Use Drinks/Week oz/Week Comments Yes occasional Sex Assigned at Date Recorded Not on file Job Start Date Occupation Industry Not on file Not on file Not on file Travel History Travel Start Travel End No recent travel history available. Last Filed Vital Signs Not on file Plan of Treatment Not on file Results Not on fileafter 11/28/2017 Advance Directives Patient has advance care planning documents on file. For more information, please contact:[facility] [place] [address]
--- OUTSIDE RECORDS SUMMARY | 2018-11-29 11:52 | XMS REPORT ---
:1990 [facility] Address [address] [place] [address] Care Team Providers Name Role Phone Unavailable Unavailable Unavailable Payers Payer Name Policy Type Policy Number Effective Date Expiration Date Problems This patient has no known problems. Allergies, Adverse Reactions, Alerts Allergy Name Allergy Status Severity Reaction(s) Onset Inactive Treating Comments Type Date Date Clinician Penicillins DA Active U 2017-0 03-21 00:00: 00 Sulfa DA Active U (Sulfonamide 03-21 Antibiotics) 00:00: 00 ibuprofen DA Active U 03-21 00:00: 00 sulfamethoxazol DA Active SV 2017-0 e 8 00:00: 00 trimethoprim DA Active SV 03-21 00:00: 00 penicillin G DA Active U 8 00:00: 00 shellfish DA Active SV 2017-0 derived 8 00:00: 00 spinach DA Active MO 2017-0 8- 00:00: 00 MUSHROOMS DA Active MO - 00:00: 00 Medications This patient has no known medications.
[2018-11-29] MEDS ORDERED: ONDANSETRON 4 MG/2 ML VIAL ONE (12:49)
[2018-11-29] MEDS ORDERED: INSULIN -REGULAR HUMAN 50 UNIT/0.5 ML ML ONE (12:49)
[2018-11-29] MEDS ORDERED: NA CHLORIDE 0.9% 2,000 ML ONE (12:50)
[2018-11-29 12:56] LABS: Absolute Monocytes 0.5 K/uL (0.1-1.3); Absolute Neutrophil 12.2 K/uL (1.8-8.0); Basophils % 0.5 % (0-1.3); Eosinophils % 1.9 % (0-4.4); Hematocrit 47.4 % (36.0-45.0); Lymphocytes % 7.3 % (15.3-44.8); MPV 9.9 fL (7.6-11.3); Monocytes % 3.4 % (3.3-12.3); RBC Red Blood Cell Count 5.17 M/uL (3.86-4.86)
--- NOTE | 2018-11-29 13:08 | RAD REPORT ---
EXAM DESCRIPTION: Rafael Single View11/29/2018 12:58 pm CLINICAL HISTORY: cough COMPARISON: October 2018 FINDINGS: The lungs appear clear of acute infiltrate. The heart is normal size IMPRESSION: No acute abnormalities displayed
[2018-11-29 13:11] LABS: BUN Blood Urea Nitrogen 15 mg/dL (7-18); Glucose Level 615 mg/dL (74-106); Potassium 4.5 mmol/L (3.5-5.1); Sodium Level 133 mmol/L (136-145)
[2018-11-29 13:15] LABS: Bicarbonate 11 mmol/L (21-32)
[2018-11-29 13:22] LABS: Urine Bacteria <20 /HPF (<20); Urine Culture Reflex Order REFLEXED
--- NOTE | 2018-11-29 13:29 | ER ---
Nurse's Notes [facility] Name: Cristina Le Age: 28 yrs Sex: Female : 1990 Arrival Date: 11/29/2018 Time: 11:41 Bed 20 Private MD: Diagnosis: Streptococcal pharyngitis;Type 1 diabetes mellitus with ketoacidosis without coma;Dehydration Presentation: 11/29 11:48 Presenting complaint: Patient states: abd pain, generalized weakness, hyperglycemia, sv nausea, vomiting x2-3 days. Transition of care: patient was not received from another setting of care. Onset of symptoms was November 26, 2018. Care prior to arrival: None. 11:48 Method Of Arrival: Wheelchair sv 11:48 Acuity: KM 2 sv 16:30 Risk Assessment: Do you want to hurt yourself or someone else? Patient reports no aj1 desire to harm self or others. Initial Sepsis Screen: Does the patient meet any 2 criteria? HR > 90 bpm. No. Patient's initial sepsis screen is negative. Does the patient have a suspected source of infection? Yes: Acute abdominal pain. Historical: - Allergies: 11:50 flu medication; sv 11:50 Ibuprofen; sv 11:50 PENICILLINS; sv 11:50 Spinach; sv 11:50 Sulfa (Sulfonamide Antibiotics); sv - PMHx: 11:50 Arthritis; Diabetes - IDDM; neuropathy; sv - PSHx: 11:50 ankle; sv - Immunization history:: Adult Immunizations up to date. - Family history:: not pertinent. - Ebola Screening: : Patient denies travel to an Ebola-affected area in the 21 days before illness onset. - Hospitalizations: : No recent hospitalization is reported. Screenin:00 Abuse screen: Denies threats or abuse. Denies injuries from another. Nutritional aj1 screening: No deficits noted. Tuberculosis screening: No symptoms or risk factors identified. 16:30 Fall Risk None identified. aj1 Assessment: 12:00 General: Appears in no apparent distress. uncomfortable, Behavior is anxious, restless, aj1 uncooperative. Pain: Complains of pain in chest and abdomen Pain does not radiate. Pain currently is 10 out of 10 on a pain scale. Quality of pain is described as crampy. Neuro: Level of Consciousness is awake, alert, obeys commands, Oriented to person, place, time, situation, Speech is normal, Facial symmetry appears normal, Reports headache weakness. Cardiovascular: Reports chest pain, nausea, Heart tones S1 S2 present Patient's skin is warm and dry. Rhythm is sinus tachycardia. Respiratory: Reports cough that is hacking, persistent Airway is patent Respiratory effort is even, unlabored, Respiratory pattern is regular, symmetrical, Breath sounds are clear bilaterally. GI: Abdomen is flat, non-distended, Bowel sounds present X 4 quads. Abd is soft and non tender X 4 quads. Reports cramping. : No signs and/or symptoms were reported regarding the genitourinary system. EENT: No signs and/or symptoms were reported regarding the EENT system. Derm: No signs and/or symptoms reported regarding the dermatologic system. Musculoskeletal: No signs and/or symptoms reported regarding the musculoskeletal system. Circulation, motion, and sensation intact. 13:00 Reassessment: Patient appears in no apparent distress at this time. No changes from aj1 previously documented assessment. Patient and/or family updated on plan of care and expected duration. Pain level reassessed. Patient is alert, oriented x 3, equal unlabored respirations, skin warm/dry/pink. 14:00 Reassessment: Patient and/or family updated on plan of care and expected duration. Pain aj1 level reassessed. General: Appears in no apparent distress. comfortable, Behavior is calm, cooperative, appropriate for age. Neuro: Level of Consciousness is awake, alert, obeys commands, Oriented to person, place, time, situation. Cardiovascular: Patient's skin is warm and dry. Rhythm is sinus tachycardia. Respiratory: Airway is patent Respiratory effort is even, unlabored, Respiratory pattern is regular, symmetrical. Derm: Skin is pink, warm \T\ dry. normal. Musculoskeletal: Circulation, motion, and sensation intact. 15:00 Reassessment: Patient appears in no apparent distress at this time. No changes from aj1 previously documented assessment. Patient and/or family updated on plan of care and expected duration. Pain level reassessed. Patient is alert, oriented x 3, equal unlabored respirations, skin warm/dry/pink. 16:00 Reassessment: Patient appears in no apparent distress at this time. No changes from aj1 previously documented assessment. Patient and/or family updated on plan of care and expected duration. Pain level reassessed. Patient is alert, oriented x 3, equal unlabored respirations, skin warm/dry/pink. Vital Signs: 11:50 BP 112 / 57; Pulse 121; Resp 20; Temp 98.5; Pulse Ox 100% ; sv 12:15 BP 100 / 64; Pulse 123; Resp 18; Pulse Ox 100% ; aj1 12:45 BP 103 / 66; Pulse 113; Resp 20; Pulse Ox 97% ; aj1 13:15 BP 108 / 75; Pulse 115; Resp 16; Pulse Ox 100% ; aj1 13:45 BP 98 / 62; Pulse 113; Resp 18; Pulse Ox 100% ; aj1 14:15 BP 106 / 62; Pulse 108; Resp 20; Pulse Ox 98% ; aj1 14:29 Weight 53.52 kg (M); ss 14:45 BP 112 / 70; Pulse 120; Resp 17; Pulse Ox 98% ; aj1 14:54 Pulse 102; Resp 17; Pulse Ox 100% on R/A; ss 15:15 BP 107 / 75; Pulse 109; Resp 16; Pulse Ox 100% on R/A; aj1 15:45 BP 105 / 62; Pulse 108; Resp 18; Pulse Ox 98% on R/A; aj1 16:15 BP 109 / 59; Pulse 105; Resp 18; Pulse Ox 100% on R/A; aj1 ED Course: 11:41 Patient arrived in ED. mr 11:49 Triage completed. sv 11:50 Arm band placed on. sv 11:51 Jesus Antunez MD is Attending Physician. rn 11:53 Fifi Avina, YOAN is Primary Nurse. aj1 11:56 Patient has correct armband on for positive identification. Bed in low position. Call [facility] light in reach. Side rails up X 1. Adult w/ patient. Warm blanket given. monitor tech on. Pulse ox on. NIBP on. 12:00 No provider procedures requiring assistance completed. aj1 12:56 X-ray completed. Portable x-ray completed in exam room. Patient tolerated procedure jb2 well. 12:58 XRAY Chest (1 view) In Process Unspecified. EDMS 12:59 Placed in gown. mh5 12:59 Urine collected: clean catch specimen, cloudy. [facility] 13:04 Urine --Ancillary (enter results) Sent. 5 13:04 Urine Dipstick--Ancillary (enter results) Sent. [facility] 13:05 Urine Microscopic Only Sent. [facility] 13:19 Notified ED physician of a critical lab result(s). CO2-11, glucose-615. sv 13:[address] DO is Hospitalizing Provider. rn 15:59 Glucose Sent. [facility] 16:30 Report received from YOAN Ramsey in ICU. [facility] 16:30 Patient admitted, IV remains in place. aj1 Administered Medications: 12:53 Drug: NS 0.9% 1000 ml Route: IV; Rate: 1000 ml; Site: left antecubital; [facility] 12:53 Drug: Insulin Regular Human 10 units {Co-Signature: ph (Linda Lara RN).} Route: aj1 Sub-Q; Site: right upper arm; 12:54 Drug: Zofran 4 mg Route: IVP; Site: right antecubital; [facility] 14:45 Drug: Insulin Drip - (Insulin Regular Human 100 units, NS 0.9% 100 ml) {Co-Signature: bo [id number] (David Frank RN).} Route: IV; Rate: calculated rate; Site: left antecubital; 14:46 Follow up: IV Status: Infusion continued upon admission 14:52 Drug: Zithromax 500 mg Route: PO; [facility] Point of Care Testing: Blood Glucose: 11:56 Blood Glucose: 456 mg/dL; 5 15:57 Blood Glucose: 315 mg/dL; [facility] Ranges: Outcome: 13:28 Decision to Hospitalize by Provider. rn 16:30 Admitted to ICU accompanied by nurse, accompanied by tech, via stretcher, on monitor, [facility] with chart. 16:30 critical 16:30 Discharge instructions given to patient, Instructed on the need for admit, Demonstrated understanding of instructions. 16:52 Patient left the ED. ss Signatures: Dispatcher [employer] EDMS Fifi Avina RN RN aj1 Verde, Stephanie RN YOAN wade Ines Chavarria, Jesus German MD MD rn Smirch, Shelby, RN RN ss Martinez, Maria Ruth Frank RN jl7 Corrections: (The following items were deleted from the chart) 11:50 11:48 Presenting complaint: Patient states: abd pain, generalized weakness, sv hyperglycemia, nausea x2-3 days. sv
--- NOTE | 2018-11-29 13:29 | EDPHYS ---
Physician Documentation [facility] Name: Cristina Le Age: 28 yrs Sex: Female : 1990 Arrival Date: 11/29/2018 Time: 11:41 Bed 20 Private MD: ED Physician Jesus Antunez HPI: 11/29 12:17 This 28 yrs old Female presents to ER via Wheelchair with complaints of rn Abdominal Pain, Weakness, High Blood Sugar. 12:17 REports a few days of "head cold", congestion, nausea/vomiting, feels like blood sugar rn elevated, has not checked it, reports sometimes takes insulin but doesn't eat well. + abd cramping. + cough. + generalized weakness and muscle aches. . 12:18 Onset: The symptoms/episode began/occurred 2 day(s) ago. Severity of symptoms: At their rn worst the symptoms were moderate in the emergency department the symptoms are unchanged. The patient has experienced similar episodes in the past. The patient has not recently seen a physician. Historical: - Allergies: 11:50 flu medication; sv 11:50 Ibuprofen; sv 11:50 PENICILLINS; sv 11:50 Spinach; sv 11:50 Sulfa (Sulfonamide Antibiotics); sv - PMHx: 11:50 Arthritis; Diabetes - IDDM; neuropathy; sv - PSHx: 11:50 ankle; sv - Immunization history:: Adult Immunizations up to date. - Family history:: not pertinent. - Ebola Screening: : Patient denies travel to an Ebola-affected area in the 21 days before illness onset. - Hospitalizations: : No recent hospitalization is reported. ROS: 12:18 Constitutional: + subjective fever and chills Eyes: Negative for injury, pain, redness, rn and discharge, ENT: Negative for injury, pain, and discharge, Neck: Negative for injury, pain, and swelling, Cardiovascular: + chest pain and palpitations Respiratory: + cough, negative for sob Abdomen/GI: + abd pain and vomiting MS/Extremity: Negative for injury and deformity, Skin: Negative for injury, rash, and discoloration, Neuro: Negative for numbness, tingling, and seizure. Exam: 12:18 Constitutional: This is a well developed, well nourished patient who is awake, alert, rn appears uncomfortable Head/Face: Normocephalic, atraumatic. Eyes: Pupils equal round and reactive to light, extra-ocular motions intact. Lids and lashes normal. Conjunctiva and sclera are non-icteric and not injected. Cornea within normal limits. Periorbital areas with no swelling, redness, or edema. ENT: dry MM Neck: Trachea midline, no thyromegaly or masses palpated, and no cervical lymphadenopathy. Supple, full range of motion without nuchal rigidity, or vertebral point tenderness. No Meningismus. Cardiovascular: tachycardic, regular, no murmur Respiratory: Mild tachypnea, no retractions, clear bilaterally Abdomen/GI: soft, no-tender, no guarding or rebound Skin: Warm, dry, no cellulitis MS/ Extremity: Pulses equal, no cyanosis. Neurovascular intact. Full, normal range of motion. Equal circumference. Neuro: Awake and alert, GCS 15, oriented to person, place, time, and situation. Cranial nerves II-XII grossly intact. Motor strength 5/5 in all extremities. Sensory grossly intact. Cerebellar exam normal Vital Signs: 11:50 BP 112 / 57; Pulse 121; Resp 20; Temp 98.5; Pulse Ox 100% ; sv 12:15 BP 100 / 64; Pulse 123; Resp 18; Pulse Ox 100% ; aj1 12:45 BP 103 / 66; Pulse 113; Resp 20; Pulse Ox 97% ; aj1 13:15 BP 108 / 75; Pulse 115; Resp 16; Pulse Ox 100% ; aj1 13:45 BP 98 / 62; Pulse 113; Resp 18; Pulse Ox 100% ; aj1 14:15 BP 106 / 62; Pulse 108; Resp 20; Pulse Ox 98% ; aj1 14:29 Weight 53.52 kg (M); ss 14:45 BP 112 / 70; Pulse 120; Resp 17; Pulse Ox 98% ; aj1 14:54 Pulse 102; Resp 17; Pulse Ox 100% on R/A; ss 15:15 BP 107 / 75; Pulse 109; Resp 16; Pulse Ox 100% on R/A; aj1 15:45 BP 105 / 62; Pulse 108; Resp 18; Pulse Ox 98% on R/A; aj1 16:15 BP 109 / 59; Pulse 105; Resp 18; Pulse Ox 100% on R/A; aj1 MDM: 11:51 Patient medically screened. rn 13:27 Differential Diagnosis strep, flu, dehydration, DKA. Data reviewed: vital signs, nurses rn notes, lab test result(s), radiologic studies, plain films, and as a result, I will admit patient. Counseling: I had a detailed discussion with the patient and/or guardian regarding: the historical points, exam findings, and any diagnostic results supporting the discharge/admit diagnosis, lab results, radiology results, the need for further work-up and treatment in the hospital. Response to treatment: the patient's symptoms have mildly improved after treatment, and as a result, I will admit patient. Admission orders: after a detailed discussion of the patient's condition and case, the admit orders are written by me. 11/29 11:59 Order name: CBC with Diff; Complete Time: 15:13 11/29 11:59 Order name: Basic Metabolic Panel; Complete Time: 13:29 11/29 11:59 Order name: Urine Microscopic Only; Complete Time: 13:29 11/29 12:00 Order name: Ketone, Serum; Complete Time: 13:29 11/29 12:00 Order name: Flu; Complete Time: 15:13 11/29 12:00 Order name: Strep; Complete Time: 13: 11/29 12:43 Order name: Glucose, Ancillary Testing; Complete Time: 12:57 [facility] 11/29 12:58 Order name: CBC Smear Scan; Complete Time: 15:13 [facility] 11/29 13:00 Order name: Urine Dipstick--Ancillary (enter results) 11/29 13:00 Order name: Urine --Ancillary (enter results) 11/29 13:24 Order name: Urine Culture [facility] 11/29 13:29 Order name: ABG; Complete Time: 15:13 11/29 14:33 Order name: Glucose aj1 11/29 15:06 Order name: Glucose Level; Complete Time: 15:13 [facility] 11/29 11:59 Order name: IV Start; Complete Time: 12:40 11/29 11:59 Order name: Urine Test (obtain specimen); Complete Time: 12:54 11/29 11:59 Order name: Urine Dipstick-Ancillary (obtain specimen); Complete Time: 12:54 11/29 12:00 Order name: Glucose Level; Complete Time: 12:54 11/29 12:00 Order name: XRAY Chest (1 view); Complete Time: 13:17 rn 11/29 16:01 Order name: Glucose, Ancillary Testing EDMS 11/29 16:01 Order name: Glucose, Ancillary Testing EDMS Administered Medications: 12:53 Drug: NS 0.9% 1000 ml Route: IV; Rate: 1000 ml; Site: left antecubital; aj1 12:53 Drug: Insulin Regular Human 10 units {Co-Signature: (Linda Lara RN).} Route: aj1 Sub-Q; Site: right upper arm; 12:54 Drug: Zofran 4 mg Route: IVP; Site: right antecubital; aj1 14:45 Drug: Insulin Drip - (Insulin Regular Human 100 units, NS 0.9% 100 ml) {Co-Signature: [id number] (David Frank RN).} Route: IV; Rate: calculated rate; Site: left antecubital; 14:46 Follow up: IV Status: Infusion continued upon admission 14:52 Drug: Zithromax 500 mg Route: PO; aj1 Point of Care Testing: Blood Glucose: 11:56 Blood Glucose: 456 mg/dL; mh5 15:57 Blood Glucose: 315 mg/dL; mh5 Ranges: Critical Glucose Levels:Adult <50 mg/dl or >400 mg/dl <40 mg/dl or >180 mg/dl Disposition: 11/29/18 13:28 Hospitalization ordered by Michael [address] for Inpatient Admission. Preliminary diagnosis are Streptococcal pharyngitis, Type 1 diabetes mellitus with ketoacidosis without coma, Dehydration. - Bed requested for Intensive Care Unit. - Status is Inpatient Admission. ss - Condition is Stable. - Problem is new. - Symptoms have improved. UTI on Admission? No Critical care time excluding procedures: 13:27 Critical care time: Bedside Care: 25 minutes, Consultation: 5 minutes, Family rn Intervention: 5 minutes. Total time: 35 minutes Signatures: Dispatcher [employer] EDMS Shreya Small Angela, RN RN aj1 Monique Baum RN Jesus Max MD MD rn Smirch, Shelby, RN RN ss Patricia Hall RN David Frank RN jl7 Corrections: (The following items were deleted from the chart) 13:28 13:28 Hospitalization Ordered by Michael Street DO for Inpatient Admission. Preliminary rn diagnosis is Streptococcal pharyngitis; Type 1 diabetes mellitus with ketoacidosis without coma. Bed requested for Intensive Care Unit. Status is Inpatient Admission. Condition is Stable. Problem is new. Symptoms have improved. UTI on Admission? No. rn 14:46 13:28 11/29/2018 13:28 Hospitalization Ordered by Michael Street DO for Inpatient bd Admission. Preliminary diagnosis is Streptococcal pharyngitis; Type 1 diabetes mellitus with ketoacidosis without coma; Dehydration. Bed requested for Intensive Care Unit. Status is Inpatient Admission. Condition is Stable. Problem is new. Symptoms have improved. UTI on Admission? No. rn 16:52 14:46 11/29/2018 13:28 Hospitalization Ordered by Michael Street DO for Inpatient ss Admission. Preliminary diagnosis is Streptococcal pharyngitis; Type 1 diabetes mellitus with ketoacidosis without coma; Dehydration. Bed requested for Intensive Care Unit. Status is Inpatient Admission. Condition is Stable. Problem is new. Symptoms have improved. UTI on Admission? No. bd
[2018-11-29 13:53] LABS: Arterial Blood Carboxyhemoglob 1.6 % (0-1.5); Blood Gas Oxyhemoglobin 95.6 % (94-97); Blood O2 Saturation 97.9 % (92-98.5)
[2018-11-29 13:55] LABS: Blood Morphology Comment NOT SEEN (NOT SEEN); Platelet Estimate ADEQ; Urine White Blood Cell Casts OK
[2018-11-29] MEDS ORDERED: INSULIN -REGULAR HUMAN 100 UNIT in NA CHLORIDE 0.9% 100 ML IV SCH ×2 (14:00→18:00)
[2018-11-29] MEDS ORDERED: AZITHROMYCIN 250 MG TAB ONE (15:01)
[2018-11-29] MEDS ORDERED: ONDANSETRON 4 MG/2 ML VIAL IV PRN (16:25)
[2018-11-29] MEDS ORDERED: NACHLORIDE 0.45% 1,000 ML IV SCH (16:25)
[2018-11-29] MEDS ORDERED: GLUCAGON 1 MG/VIAL IM PRN (16:27)
[2018-11-29] MEDS ORDERED: D50W 25 GM/50 ML SYRINGE IV PRN (16:27)
[2018-11-29] MEDS ORDERED: INSULIN -REGULAR HUMAN 50 UNIT/0.5 ML ML IV SCH (16:30)
[2018-11-29] MEDS ORDERED: NA CHLORIDE 0.9% 1,000 ML IV ONE (17:00)
[2018-11-29 17:09] VITALS: O2SAT 100
[2018-11-29] MEDS ORDERED: BENZONATATE 100 MG CAP PO PRN (17:34)
[2018-11-29] MEDS: CLINDAMYCIN INJ 300 MG in NA CHLORIDE 0.9% 50 ML IV SCH (17:45)
[2018-11-29 17:47] LABS: Potassium 3.8 mmol/L (3.5-5.1)
[2018-11-29 19:18] VITALS: BMI 24.0
[2018-11-29 19:20] LABS: Urine Blood TRACE (NEG); Urine Glucose 2+ (NEG); Urine Protein NEGATIVE (NEG)
[2018-11-29] MEDS: NA CHLORIDE 0.9% 1,000 ML IV SCH (20:00)
[2018-11-29 20:57] LABS: BUN Blood Urea Nitrogen 10 mg/dL (7-18); Bicarbonate 16 mmol/L (21-32); Glucose Level 149 mg/dL (74-106); Potassium 4.9 mmol/L (3.5-5.1); Sodium Level 141 mmol/L (136-145)
[2018-11-29] MEDS ORDERED: INSULIN GLARGINE 100 UNITS/ML SQ ONE (21:42)
[2018-11-29] MEDS ORDERED: D5 0.45 NS 1,000 ML IV SCH (22:00)
[2018-11-29] MEDS: D5 0.45 NS 1,000 ML IV SCH (22:20)
[2018-11-30] MEDS: CLINDAMYCIN INJ 300 MG in NA CHLORIDE 0.9% 50 ML IV SCH ×3 (01:17→17:01)
[2018-11-30 02:19] LABS: Absolute Lymphocytes (CBC) 2.2 K/uL (0.7-4.9); Absolute Monocytes 0.8 K/uL (0.1-1.3); Basophils % 0.6 % (0-1.3); Eosinophils % 3.7 % (0-4.4); Hematocrit 36.3 % (36.0-45.0); Lymphocytes % 25.9 % (15.3-44.8); MPV 8.9 fL (7.6-11.3); Monocytes % 9.5 % (3.3-12.3); RBC Red Blood Cell Count 4.11 M/uL (3.86-4.86)
[2018-11-30 02:36] LABS: BUN Blood Urea Nitrogen 10 mg/dL (7-18); Bicarbonate 20 mmol/L (21-32); Glucose Level 146 mg/dL (74-106); HDL Cholesterol 51 mg/dL (40-60); LDL Cholesterol, Calculated 119 (<130); Potassium 3.5 mmol/L (3.5-5.1); Sodium Level 143 mmol/L (136-145)
[2018-11-30] MEDS: NA CHLORIDE 0.9% 1,000 ML IV SCH ×2 (02:40→06:00)
--- NOTE | 2018-11-30 03:52 | HP ---
Date of Admission: 11/29/2018 Chief Complaint: Sore throat, DKA. History Of Present Illness: The patient is a 28-year-old female with past medical history of diabete s mellitus type 1, who was recently admitted for DKA in fact a 1 month ago, comes in with sore throat and was taking cough medicine. No subjective fever or chills, cough, but no sputum production. For the past couple of days, the patient has been having difficulty getting her medicines due to lack of insurance and financial resources. She states that she was just excepted to [employer] yesterday. The pat jose l came into the ER for further evaluation. Her symptoms are constant, moderate, and progressively worsening. The patient reports some abdominal discomfort. In the ER, she was tachycardic and tachy pneic. Her workup revealed a blood glucose level of 615. White blood cell count was 14,000. Her AB G showed a pH of 7.18. She did have ketones. Her group A strep screen was positive. The patient wa s therefore referred for admission. She was given 1 L normal saline bolus and azithromycin as she is allergic to penicillin and sulfa. When seen in the ER, she was awake, alert, oriented x3, in some m ild distress. Past Medical History: Diabetes mellitus type 1. Surgical History: None. Allergies: TO IBUPROFEN, TAMIFLU, PENICILLIN, AND SULFA. Medications: List reviewed. Social History: The patient denies any tobacco use, alcohol use, or illicit drug use. The patient i s . Family History: Father had diabetes. Review of Systems: An 11-point system reviewed, negative except as per HPI. Physical Examination: Vital Signs: Blood pressure 112/57, pulse 121, respirations 20, temperature 98.5, O2 100% on room ai r. General: Awake, alert, oriented x3. Some mild distress. HEENT: Normocephalic, atraumatic. PERRLA. EOMI. Dry mucous membranes. Oropharynx is clear. Poor dentition. Conjunctivae are anicteric. Neck: Supple. No JVD. Trachea midline. CV: S1, S2. Sinus tachycardia. Peripheral pulses present. Respiratory: Moving air well bilaterally. No wheezing or stridor. No use of accessory muscles. Gastrointestinal: Abdomen is soft, nontender, nondistended. Positive bowel sounds. Extremities: No clubbing, cyanosis, or edema. No calf tenderness. Neuro: Cranial nerves 2-12 intact grossly. No focal neurological deficit. Speech is normal. Skin: No rashes. Normal skin turgor. Psych: Mood is okay. Affect is full. Insight and judgment are good. Laboratory Data: WBC 14.1, H and H 15.1 and 47.4, neutrophils 86%. ABG; pH 7.18, pCO2 15, PO2 126, bicarb 5.4. Sodium 133, potassium 4.5, chloride 99, CO2 11, BUN 15, creatinine 0.98, glucose 615, ca lcium 9.5. Serum osmolality is pending. UA is pending. Acetone, small. Influenza screen negative. Group a Streptococcus rapid screen is positive. Chest x-ray personally reviewed shows no acute abn ormalities. Assessment: A 28-year-old female with; 1.DKA without coma. We will start her on insulin drip, start her on IV fluids with normal saline at 150 mL/h. Prior to maintenance fluids, we will give 1 more bolus of normal saline. We will obtain serial BMP until anion gap is closed. Check serum osmolality. 2.Strep throat. The patient has a positive screen and is symptomatic. The patient is allergic to p enicillin. We will treat with clindamycin. 3.Neutrophilic leukocytosis secondary to above. 4.GI, DVT prophylaxis with PPI and SCDs. Admit the patient to ICU, place as inpatient. Length of stay, greater than 2 midnights. JOHN Voice ID: [id number]
[2018-11-30] MEDS: D5 0.45 NS 1,000 ML IV SCH (04:40)
[2018-11-30] MEDS: INSULIN -REGULAR HUMAN 50 UNIT/0.5 ML ML SQ SCH ×3 (08:10→16:30)
[2018-11-30 08:46] LABS: BUN Blood Urea Nitrogen 8 mg/dL (7-18); Glucose Level 177 mg/dL (74-106); Potassium 4.2 mmol/L (3.5-5.1); Sodium Level 144 mmol/L (136-145)
[2018-11-30 08:49] LABS: Bicarbonate 12 mmol/L (21-32)
[2018-11-30 13:33] LABS: BUN Blood Urea Nitrogen 6 mg/dL (7-18); Bicarbonate 21 mmol/L (21-32); Glucose Level 119 mg/dL (74-106); Potassium 3.3 mmol/L (3.5-5.1); Sodium Level 145 mmol/L (136-145)
--- NOTE | 2018-11-30 15:37 | PN ---
Date of Progress Note: 11/30/2018 Subjective: The patient is seen and examined. Chart reviewed and case discussed with RN. The patie nt was switched off IV insulin at 2 a.m.; however, now repeat BMP shows elevated anion gap. Overall, the patient states she feels better. Medications: List reviewed. Physical Examination: Vital Signs: Temperature 97.6, heart rate 91, blood pressure 94/55, respirations 15, O2 100% on room air. General: Awake, alert, oriented x3, not in any acute distress. CV: S1, S2. Regular rate and rhythm. Peripheral pulses present. Respiratory: Moving air well bilaterally. No wheezing or stridor. Gastrointestinal: Abdomen is soft, nontender, nondistended. Positive bowel sounds. Extremities: No clubbing, cyanosis, or edema. Neurologic: Nonfocal. Laboratory Data: Sodium 144, potassium 4.2, chloride 116, CO2 12, BUN 8, creatinine 0.5, glucose 177 , calcium 7.8. WBC 8.3, H and H 12.2, 36.3, platelets 235, neutrophils 60%. Assessment And Plan: A 28-year-old female with: 1.Diabetic ketoacidosis, without coma. The patient's anion gap now back up to 16. We will resume I V insulin and check BMP every 4 hours. Continue IV fluids. 2.Strep throat. Continue clindamycin. The patient is allergic to penicillin. 3.Neutrophilic leukocytosis, resolved. 4.Deep venous thrombosis prophylaxis with SCDs and early persistent ambulation. Plan: Continue IV insulin. We will switch over to long-acting insulin tonight and plan for discharg e in the next 24 to 48 hours depending on her DKA status. SA/MODL Voice ID: [id number] Report ID: [id number]
[2018-11-30 16:36] VITALS: TEMP 97.9
[2018-11-30 17:45] VITALS: BP 119/77
[2018-11-30] MEDS ORDERED: INSULIN GLARGINE 100 UNITS/ML SQ ONE (21:42)
--- NOTE | 2018-12-02 15:09 | DS ---
Date of Discharge: 11/30/2018 Discharge Diagnoses: 1.Diabetic ketoacidosis without coma. 2.Streptococcus throat. 3.Neutrophilic leukocytosis. Hospital Course: The patient is a 28-year-old female with a past medical history of diabetes mellitu s type 1 with multiple readmissions for DKA, who came in with DKA, was found to have blood sugar grea ter than 600, elevated anion gap, and acetone in the blood. The patient was started on IV insulin an d she was admitted to the ICU. Her gap did close and was switched over to subcutaneous insulin overn ight; however, in the morning, her anion gap opened up again and, therefore, we switched back to IV i nsulin. The patient was also incidentally found to have strep throat, was treated with azithromycin in the ER and was started on clindamycin due to her allergies to penicillin and sulfa. The patient h as been noncompliant in the past and again with her at the bedside, the patient was refusing lab draws, was irritated and did not want any further intervention. She then decided to leave agains t medical advice. She was counseled to stay. She understands that she needs antibiotics for her str ep throat, which can lead to rheumatic fever in the future if not treated. She also will need insuli n. However, the patient decided to leave against medical advice, seemed to be pressured by her signi ficant other. The patient left AMA. For physical exam findings, please see progress note dictated on the day of discharge. /HAWA Voice ID: [id number] Report ID: [id number]
== END 2018-11-30 17:45 | disposition left against medical advice (07) | DRG 639 ==
LOC: ER 11:38 → ERHOLD 14:25 → 3RD-ICU 16:16
PROVIDERS: ADMIT Family Medicine; ATTEND Family Medicine
DX: E10.10 Type 1 diabetes mellitus with ketoacidosis without coma (principal); J02.0 Streptococcal pharyngitis; D72.828 Other elevated white blood cell count; Z91.19 Patient's noncompliance with other medical treatment and regimen; E10.40 Type 1 diabetes mellitus with diabetic neuropathy, unspecified; Z79.4 Long term (current) use of insulin
CPT/HCPCS: 36415; 71045; 80048; 80061; 81003; 81015; 81025; 82010; 82805; 82947; 82962; 83930; 84703; 85025; 87081; 87086; 87088; 87804; 96372; 99285; J2405; J7030

== ENCOUNTER 2019-02-15 14:05 | Emergency (ER) | payer SELFPAY ==
--- OUTSIDE RECORDS SUMMARY | 2019-02-15 14:07 | XMS REPORT | Clinical Summary ---
:1990 Author Organization [facility] Address [address] [place] [address] Care Team Providers Name Role Phone Provider, [...] Not on file Results Not on fileafter 02/14/2018 Advance Directives Patient has advance care planning documents on file. For more information, please contact:[facility] [place] [address]
--- OUTSIDE RECORDS SUMMARY | 2019-02-15 14:07 | XMS REPORT ---
:1990 [facility] Address [address] [place] [address] Care Team Providers Name Role Phone Unavailable [...]
[2019-02-15 16:01] LABS: Urine Bacteria >50 /HPF (<20); Urine Culture Reflex Order REFLEXED; Urine RBC <5 /HPF (NONE SEEN)
[2019-02-15] MEDS ORDERED: NA CHLORIDE 0.9% 1,000 ML ONE (16:19)
[2019-02-15 16:59] LABS: Arterial Blood Carboxyhemoglob 1.6 % (0-1.5); Blood Gas Oxyhemoglobin 95.6 % (94-97); Blood O2 Saturation 97.9 % (92-98.5)
[2019-02-15 17:16] LABS: Urine Blood 2+ (NEG); Urine Glucose 2+ (NEG); Urine Specific Gravity 1.015 (1.005-1.030)
[2019-02-15 17:17] LABS: Urine Protein 1+ (NEG); Urine pH 5.5 (5.0-7.0)
[2019-02-15 17:32] LABS: Absolute Lymphocytes (CBC) 1.4 K/uL (0.7-4.9); Basophils % 0.7 % (0-1.3); Eosinophils % 4.6 % (0-4.4); Hematocrit 39.7 % (36.0-45.0); Lymphocytes % 20.5 % (15.3-44.8); Monocytes % 4.3 % (3.3-12.3); RBC Red Blood Cell Count 4.58 M/uL (3.86-4.86)
[2019-02-15 17:42] LABS: ALT/SGPT 16 U/L (12-78); AST/SGOT 9 U/L (15-37); Albumin 3.1 g/dL (3.4-5.0); Alkaline Phosphatase 53 U/L (45-117); BUN Blood Urea Nitrogen 18 mg/dL (7-18); Bicarbonate 19 mmol/L (21-32); Bilirubin Direct 0.2 mg/dL (0-0.2); Bilirubin Total 0.7 mg/dL (0.2-1.0); Glucose Level 324 mg/dL (74-106); Lipase 118 U/L (73-393); Potassium 4.6 mmol/L (3.5-5.1); Protein, Total 6.3 g/dL (6.4-8.2); Sodium Level 138 mmol/L (136-145); Troponin (Emerg Dept Use Only) < 0.02 ng/mL (0.0-0.045)
[2019-02-15] MEDS ORDERED: NITROFURAN MACRO 100 MG CAP PO ONE (18:30)
--- NOTE | 2019-02-15 18:40 | RAD REPORT ---
EXAM DESCRIPTION: CT - Stone Protocol - 02/15/2019 6:11 pm CLINICAL HISTORY: Abdominal pain. COMPARISON: None. TECHNIQUE: Computed axial tomography of the abdomen pelvis was obtained without oral or IV contrast. Lack of IV and oral contrast limits evaluation of solid organs, bowel, and vessels. Coronal reformat james images were obtained and reviewed. All CT scans are performed using dose optimization technique as appropriate and may include automated exposure control or mA/KV adjustment according to patient size. FINDINGS: A renal calculus is not seen. An ureteral calculus is not noted. A bladder calculus is not present. A 3.6 centimeter soft tissue structure upper pole right kidney. 2.3 centimeter cyst left ki dney. Mild bladder distention The visualized liver, spleen, pancreas and adrenals appear grossly normal There is no evidence of diverticulitis. The appendix appears normal IMPRESSION: Negative for a genitourinary calculus 3.6 centimeter soft tissue structure upper pole right kidney may represent a prominent lobulati on or a mass. Ultrasound is recommended. Mild bladder distention
[2019-02-15] MEDS ORDERED: INSULIN -REGULAR HUMAN 50 UNIT/0.5 ML ML ONE ×2 (18:41→18:42)
--- NOTE | 2019-02-15 18:57 | RAD REPORT ---
EXAM DESCRIPTION: Rafael Single View02/15/2019 6:03 pm CLINICAL HISTORY: Chest pain COMPARISON: November 2018 FINDINGS: The lungs appear clear of acute infiltrate. The heart is normal size IMPRESSION: No acute abnormalities displayed
--- NOTE | 2019-02-15 20:29 | RAD REPORT ---
EXAM DESCRIPTION: US - Transvaginal Study Probe - 02/15/2019 8:14 pm CLINICAL HISTORY: Pelvic pain COMPARISON: none FINDINGS: The uterus measures 7 x 4 x 4cm. A fibroid is not seen. Endometrial stripe measures 5 mill imeters The ovaries are normal in size and echotexture. No significant free fluid is seen. IMPRESSION: Unremarkable pelvic ultrasound
--- NOTE | 2019-02-15 20:47 | ER ---
Nurse's Notes [facility] Name: Cristina Le Age: 28 yrs Sex: Female : 1990 Arrival Date: 02/15/2019 Time: 14:07 Bed 16 Private MD: Diagnosis: Urinary tract infection, site not specified;Chest pain, unspecified Presentation: 02/15 14:07 Presenting complaint: EMS states: PAIN FROM GROIN TO CHEST. Transition of care: patient bp was not received from another setting of care. Onset of symptoms is unknown. Risk Assessment: Do you want to hurt yourself or someone else? Patient reports no desire to harm self or others. Initial Sepsis Screen: Does the patient meet any 2 criteria? No. Patient's initial sepsis screen is negative. Does the patient have a suspected source of infection? No. Patient's initial sepsis screen is negative. Care prior to arrival: Glucose check: 290. 14:07 Method Of Arrival: EMS: [facility] bp 14:07 Acuity: KM 3 bp Triage Assessment: 14:14 General: Appears in no apparent distress. comfortable, Behavior is cooperative, bp appropriate for age, anxious. Pain: Complains of pain in chest and pelvis. EENT: No deficits noted. Neuro: No deficits noted. Cardiovascular: Rhythm is sinus rhythm. Respiratory: No deficits noted. GI: No signs and/or symptoms were reported involving the gastrointestinal system. : No signs and/or symptoms were reported regarding the genitourinary system. Derm: No deficits noted. Musculoskeletal: No deficits noted. HEALTH CARE SPECIALIST: 14:14 LMP 02/15/2019 bp Historical: - Allergies: 14:14 flu medication; bp 14:14 Ibuprofen; bp 14:14 PENICILLINS; bp 14:14 Spinach; bp 14:14 Sulfa (Sulfonamide Antibiotics); bp - Home Meds: 14:14 gabapentin Oral [Active]; Humalog Sub-Q [Active]; bp 14:20 Lantus 15 units Sub-Q twice a day [Active]; rb1 - PMHx: 14:14 Arthritis; Diabetes - IDDM; neuropathy; bp - PSHx: 14:20 ankle; rb1 - Immunization history:: Adult Immunizations up to date. - Social history:: Smoking status: Patient/guardian denies using tobacco. - Ebola Screening: : No symptoms or risks identified at this time. Screenin:16 Abuse screen: Denies threats or abuse. Denies injuries from another. Nutritional bp screening: No deficits noted. Tuberculosis screening: No symptoms or risk factors identified. Fall Risk None identified. Assessment: 14:15 General: SEE TRIAGE NOTE. bp 14:20 General: Appears in no apparent distress. comfortable, Behavior is calm, cooperative, rb1 Denies fever. Pain: Complains of pain in mid-sternal area Pain radiates to left side of chest Pain currently is 10 out of 10 on a pain scale. Pain began x 1 week. Neuro: Level of Consciousness is awake, alert, obeys commands, Oriented to person, place, time, situation. Cardiovascular: Capillary refill < 3 seconds is brisk in bilateral fingers. Respiratory: Airway is patent Respiratory effort is even, unlabored, Respiratory pattern is regular, symmetrical. GI: Reports nausea. : Reports burning with urination, since today. Derm: Skin is pink, warm \T\ dry. Musculoskeletal: Range of motion: intact in all extremities. 15:20 Reassessment: Patient appears in no apparent distress at this time. No changes from rb1 previously documented assessment. 16:12 Reassessment: Lab at bedside. rb1 16:59 Reassessment: RT AT B/S FOR ABG. bp 18:05 Reassessment: PT TO CT WITH INFORMATION CLERK. bp 18:20 Reassessment: PT RETURNED FROM CT. bp 19:10 Reassessment: Patient appears in no apparent distress at this time. Patinet aware of lp1 waiting for Ultrasound for imaging. Neuro: Level of Consciousness is awake, alert, obeys commands. Respiratory: Respiratory effort is even, unlabored. Derm: Skin is intact, Skin is dry. 20:30 Reassessment: Patient appears in no apparent distress at this time. Patient is alert, lp1 oriented x 3, equal unlabored respirations, skin warm/dry/pink. Patient denies pain at this time. Patient states feeling better. Vital Signs: 14:14 BP 95 / 63; Pulse 80; Resp 18; Temp 97; Pulse Ox 96% ; bp 16:00 BP 72 / 40; Pulse 81; Resp 16; Pulse Ox 99% ; bp 18:00 BP 102 / 70; Pulse 91; Resp 16; Pulse Ox 99% ; bp 19:30 BP 102 / 67; Pulse 93; Resp 15; Temp 98.2(O); Pulse Ox 100% on R/A; lp1 20:26 BP 98 / 68; Pulse 97; Resp 19; Pulse Ox 100% on R/A; lp1 ED Course: 14:07 Patient arrived in ED. bp 14:13 Triage completed. bp 14:14 Arm band placed on. bp 14:16 Patient has correct armband on for positive identification. Bed in low position. Call bp light in reach. Side rails up X2. Pulse ox on. NIBP on. 14:20 Patient maintains SpO2 saturation greater than 95% on room air. rb1 14:21 Argelia Johnson, YOAN is Primary Nurse. rb1 14:40 Manuel De La Rosa PA is PHCP. [facility] 14:40 Niko Leon MD is Attending Physician. m 16:00 Inserted saline lock: 24 gauge in right hand, using aseptic technique. bp 16:57 Report given to YOAN Barrett. rb1 18:[address] nj 18:03 Chest Single View XRAY In Process Unspecified. EDMS 18:03 EKG done, by ED staff, reviewed by Manuel BESS. 3 18:08 CT completed. Patient tolerated procedure well. Patient moved back from CT. nj 18:11 CT Stone Protocol In Process Unspecified. EDMS 19:34 No provider procedures requiring assistance completed. lp1 20:15 Transvaginal Study Probe In Process Unspecified. EDMS 21:07 IV discontinued, No redness/swelling at site. Pressure dressing applied. lp1 Administered Medications: 16:10 Drug: NS 0.9% 1000 ml Route: IV; Rate: 1 bolus; Site: right hand; rb1 18:23 Drug: Macrobid 100 mg Route: PO; bp 18:37 Follow up: Response: No adverse reaction bp 18:30 Drug: Insulin Regular Human 10 units {Co-Signature: iw (Hattie Camarillo RN).} Route: bp IVP; Site: right hand; 18:58 Follow up: Response: No adverse reaction; No change in condition bp Point of Care Testing: Blood Glucose: 18:49 Blood Glucose: 326 mg/dL; bp 20:26 Blood Glucose: 267 mg/dL; lp1 Ranges: Outcome: 20:47 Discharge ordered by . jmm 21:07 Discharged to home ambulatory. lp1 21:07 Condition: good 21:07 Discharge instructions given to patient, Instructed on discharge instructions, follow up and referral plans. medication usage, Demonstrated understanding of instructions, follow-up care, medications, Prescriptions given X 1. 21:07 Patient left the ED. lp1 Signatures: Dispatcher [employer] EDMS Manuel De La Rosa PA PA jmm Pena, Laura, RN RN lp1 Argelia Johnson RN RN rb1 Tim Muro Deanna 3 Arnold Boston RN RN bp Hattie Camarillo RN iw Corrections: (The following items were deleted from the chart) 14:47 14:14 Home Meds: Lantus Sub-Q; bp rb1
--- NOTE | 2019-02-15 20:47 | EDPHYS ---
Physician Documentation [facility] Name: Cristina Le Age: 28 yrs Sex: Female : 1990 Arrival Date: 02/15/2019 Time: 14:07 Bed 16 Private MD: ED Physician Niko Leon HPI: 02/15 14:44 This 28 yrs old Female presents to ER via EMS with complaints of Chest Pain, jmm Groin Pain. 14:44 The patient presents with urinary symptoms, dysuria. Modifying factors: The symptoms jmm are alleviated by nothing, the symptoms are aggravated by urinating. Associated signs and symptoms: Pertinent positives: chest pain. This is a 28 year old female with a history of DM that presents to the ED with complaints of painful urination today with radiation to her chest. Patient denies fever, denies vomiting. Patient states she has had difficulty keeping her blood glucose low and is concerned she may be in DKA. Patient denies shortness of breath. 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 - Social history:: Smoking status: Patient/guardian denies using tobacco. - Ebola Screening: : No symptoms or risks identified at this time. ROS: 14:44 Constitutional: Negative for fever, chills, and weight loss, Respiratory: Negative for jmm shortness of breath, cough, wheezing, and pleuritic chest pain. 14:44 Neuro: Negative for headache, weakness, numbness, tingling, and seizure. 14:44 Cardiovascular: Positive for chest pain. 14:44 Abdomen/GI: Positive for abdominal pain. 14:44 : Positive for urinary symptoms. 14:44 All other systems are negative. Exam: 18:14 Constitutional: This is a well developed, well nourished patient who is awake, alert, jmm and in no acute distress. Head/Face: atraumatic. Eyes: EOMI, no conjunctival erythema appreciated ENT: Moist Mucus Membranes Neck: Trachea midline, Supple Chest/axilla: Normal chest wall appearance and motion. Cardiovascular: Regular rate and rhythm. No edema appreciated Respiratory: Normal respirations, no respiratory distress appreciated Abdomen/GI: Non distended, soft Back: Normal ROM 18:14 ECG was reviewed by the Attending Physician. 18:14 Skin: Appearance: Color: normal in color. 18:14 Neuro: Orientation: is normal, Mentation: is normal, Memory: is normal. 18:14 Psych: Behavior/mood is pleasant, cooperative. Vital Signs: 14:14 BP 95 / 63; Pulse 80; Resp 18; Temp 97; Pulse Ox 96% ; bp 16:00 BP 72 / 40; Pulse 81; Resp 16; Pulse Ox 99% ; bp 18:00 BP 102 / 70; Pulse 91; Resp 16; Pulse Ox 99% ; bp 19:30 BP 102 / 67; Pulse 93; Resp 15; Temp 98.2(O); Pulse Ox 100% on R/A; lp1 20:26 BP 98 / 68; Pulse 97; Resp 19; Pulse Ox 100% on R/A; lp1 MDM: 14:44 Patient medically screened. [facility] 20:44 Data reviewed: vital signs, nurses notes. Counseling: I had a detailed discussion with [facility] the patient and/or guardian regarding: the historical points, exam findings, and any diagnostic results supporting the discharge/admit diagnosis, lab results, radiology results, the need for outpatient follow up, to return to the emergency department if symptoms worsen or persist or if there are any questions or concerns that arise at home. ED course: Labs appear do not appear consistent with DKA. patient prescribed oral antibiotics. Patient advised to follow up with pcp and otherwise given strict return precautions. patient understood and agrees with the plan of care. HEART SCORE = 1. PERC NEGATIVE. 02/15 14:52 Order name: Basic Metabolic Panel [facility] 02/15 14:52 Order name: CBC with Diff; Complete Time: 17:42 [facility] 02/15 14:52 Order name: Hepatic Function; Complete Time: 18:55 [facility] 02/15 14:52 Order name: Lipase; Complete Time: 18:55 [facility] 02/15 14:52 Order name: Ketone, Serum; Complete Time: 18:55 [facility] 02/15 15:01 Order name: Basic Metabolic Panel; Complete Time: 18:55 [facility] 02/15 15:08 Order name: Urine Microscopic Only; Complete Time: 16:34 dh3 02/15 15:13 Order name: Urine Dipstick--Ancillary (enter results) ag 02/15 15:13 Order name: Urine --Ancillary (enter results) ag 02/15 16:02 Order name: Urine Culture [facility] 02/15 16:42 Order name: ABG; Complete Time: 17:29 [facility] 02/15 17:15 Order name: Troponin (Emerg Dept Use Only); Complete Time: 18:55 [facility] 02/15 14:52 Order name: IV Saline Lock; Complete Time: 16:11 [facility] 02/15 14:52 Order name: Labs collected and sent; Complete Time: 17:45 [facility] 02/15 14:52 Order name: Urine Dipstick-Ancillary (obtain specimen); Complete Time: 15:08 [facility] 02/15 14:52 Order name: Urine Test (obtain specimen); Complete Time: 15:08 [facility] 02/15 15:38 Order name: EKG - Nurse/Tech; Complete Time: 18:09 [facility] 02/15 17:30 Order name: Chest Single View XRAY; Complete Time: 19:51 [facility] 02/15 17:30 Order name: CT Stone Protocol; Complete Time: 18:46 [facility] 02/15 18:37 Order name: Diet Ada 2000 Prince; Complete Time: 18:37 bp 02/15 18:52 Order name: Glucose, Ancillary Testing; Complete Time: 18:55 [facility] 02/15 19:58 Order name: Transvaginal Study Probe; Complete Time: 20:31 [facility] 02/15 20:18 Order name: Finger Stick; Complete Time: 20:27 jmm EC:14 Rate is 83 beats/min. Rhythm is regular. QRS Ackerman is Normal. MD interval is normal. QRS jmm interval is normal. QT interval is normal. No Q waves. T waves are Normal. No ST changes noted. Administered Medications: 16:10 Drug: NS 0.9% 1000 ml Route: IV; Rate: 1 bolus; Site: right hand; rb1 18:23 Drug: Macrobid 100 mg Route: PO; bp 18:37 Follow up: Response: No adverse reaction bp 18:30 Drug: Insulin Regular Human 10 units {Co-Signature: iw (Hattie Camarillo RN).} Route: bp IVP; Site: right hand; 18:58 Follow up: Response: No adverse reaction; No change in condition bp Point of Care Testing: Blood Glucose: 18:49 Blood Glucose: 326 mg/dL; bp 20:26 Blood Glucose: 267 mg/dL; lp1 Ranges: Critical Glucose Levels:Adult <50 mg/dl or >400 mg/dl <40 mg/dl or >180 mg/dl Disposition: 02/15/19 20:47 Discharged to Home. Impression: Urinary tract infection, site not specified, Chest pain, unspecified. - Condition is Stable. - Discharge Instructions: Nonspecific Chest Pain, Urinary Tract Infection, Adult. - Prescriptions for Macrobid 100 mg Oral Capsule - take 1 capsule by ORAL route every 12 hours for 7 days; 14 capsule. - Medication Reconciliation Form, Thank You Letter, Antibiotic Education, Prescription Opioid Use form. - Follow up: Private Physician; When: 2 - 3 days; Reason: Recheck today's complaints, Continuance of care, Re-evaluation by your physician. Addendum: 02/21/2019 16:47 Co-signature as Attending Physician, Niko Leon MD I agree with the assessment and c emerson plan of care. Signatures: Dispatcher [employer] [facility] Niko Leon MD MD cha Mickail, Joel, PA PA jmm Pena, Laura, RN RN lp1 Argelia Johnson, RN RN rb1 Arnold Boston RN RN bp Irene Williams RN iw Corrections: (The following items were deleted from the chart) 02/15 14:47 14:14 Home Meds: Lantus Sub-Q; bp rb1 17:18 15:02 Creatinine for Radiology+C.LAB.BRZ ordered. EDMS EDMS 17:18 15:38 TROPONIN (EMERG DEPT USE ONLY)+C.LAB.BRZ ordered. EDMS EDMS 19:58 18:47 Pelvis Complete+US.RAD.BRZ ordered. EDPA EDMS 21:07 20:47 02/15/2019 20:47 Discharged to Home. Impression: Urinary tract infection, site lp1 not specified; Chest pain, unspecified. Condition is Stable. Forms are Medication Reconciliation Form, Thank You Letter, Antibiotic Education, Prescription Opioid Use. Follow up: Private Physician; When: 2 - 3 days; Reason: Recheck today's complaints, Continuance of care, Re-evaluation by your physician. zhanna
[2019-02-15 21:31] VITALS: TEMP 98.2; O2SAT 100
[2019-02-15 21:33] VITALS: BP 98/68
--- NOTE | 2019-02-16 08:54 | EKG ---
Test Date: 2019-02-15 Test Time: 18:03:06 Cable Television Technician: LUIS MIGUEL MEASUREMENT RESULTS: Intervals: Rate: 83 SC: 138 QRSD: 76 QT: 378 QTc: 444 [place]: P: 47 SC: 138 QRS: 74 T: 44 INTERPRETIVE STATEMENTS: Normal sinus rhythm Normal ECG Compared to ECG 10/29/2018 05:22:20 Sinus tachycardia no longer present Right-axis deviation no longer present Myocardial infarct finding no longer present Electronically Signed On 02-16-19 08:52:43 CDT by Leodan Arboleda
== END 2019-02-15 21:07 | disposition home or self-care (01) ==
LOC: ER 14:05
DX: N39.0 Urinary tract infection, site not specified (principal); E11.21 Type 2 diabetes mellitus with diabetic nephropathy; Z79.4 Long term (current) use of insulin; Z88.2 Allergy status to sulfonamides; Z88.0 Allergy status to penicillin; Z88.6 Allergy status to analgesic agent; Z88.8 Allergy status to other drugs, medicaments and biological substances; Z91.018 Allergy to other foods
CPT/HCPCS: 36415; 71045; 74176; 76377; 76830; 80048; 80076; 81003; 81015; 81025; 82010; 82805; 82962; 83690; 84484; 85025; 87086; 87088; 93005; 96374; 99285; J7030

== ENCOUNTER 2019-03-01 22:24 | Inpatient (IN) | payer SELFPAY ==
[2019-03-01] MEDS ORDERED: INSULIN -REGULAR HUMAN 50 UNIT/0.5 ML ML ONE (23:58)
[2019-03-01] MEDS ORDERED: NA CHLORIDE 0.9% 2,000 ML ONE (23:59)
[2019-03-02] MEDS ORDERED: ONDANSETRON 4 MG (ODT) TAB ONE (00:07)
[2019-03-02 01:06] LABS: Arterial Blood Carboxyhemoglob 1.3 % (0-1.5); Blood Gas Oxyhemoglobin 94.5 % (94-97); Blood O2 Saturation 96.8 % (92-98.5)
[2019-03-02] MEDS ORDERED: ONDANSETRON 4 MG/2 ML VIAL ONE ×2 (01:08→03:33)
[2019-03-02 01:09] LABS: ALT/SGPT 17 U/L (12-78); AST/SGOT 7 U/L (15-37); Albumin 3.9 g/dL (3.4-5.0); Alkaline Phosphatase 102 U/L (45-117); BUN Blood Urea Nitrogen 32 mg/dL (7-18); Bilirubin Direct 0.2 mg/dL (0-0.2); Bilirubin Total 1.1 mg/dL (0.2-1.0); CKMB Creatine Kinase MB < 1.0 ng/mL (0.3-3.6); Creatine Phosphokinase 24 U/L (26-192); Lipase 86 U/L (73-393); Potassium 5.4 mmol/L (3.5-5.1); Protein, Total 7.5 g/dL (6.4-8.2); Sodium Level 128 mmol/L (136-145)
[2019-03-02 01:11] LABS: Bicarbonate 6 mmol/L (21-32); Glucose Level 734 mg/dL (74-106)
[2019-03-02] MEDS ORDERED: ONDANSETRON 4 MG/2 ML VIAL IV PRN (01:20)
[2019-03-02 01:22] LABS: Basophils % 0.4 % (0-1.3); Hematocrit 40.5 % (36.0-45.0); Lymphocytes % 4.7 % (15.3-44.8); MPV 10.2 fL (7.6-11.3); RBC Red Blood Cell Count 4.44 M/uL (3.86-4.86)
[2019-03-02] MEDS ORDERED: INSULIN -REGULAR HUMAN 100 UNIT in NA CHLORIDE 0.9% 100 ML IV SCH (01:30)
--- NOTE | 2019-03-02 01:41 | ER ---
Nurse's Notes [facility] Name: Cristina Wheeler Age: 28 yrs Sex: Female : 1990 Arrival Date: 03/01/2019 Time: 22:27 Bed 18 Private MD: Diagnosis: Type 1 diabetes mellitus with ketoacidosis without coma Presentation: 03/01 22:43 Presenting complaint: Patient states: she is a type 1 diabetic has been out of her bb insulin all day and now is vomiting with chest pain thinks she may be in DKA. Transition of care: patient was not received from another setting of care. Onset of symptoms was March 01, 2019. Risk Assessment: Do you want to hurt yourself or someone else? Patient reports no desire to harm self or others. Initial Sepsis Screen: Does the patient meet any 2 criteria? No. Patient's initial sepsis screen is negative. Does the patient have a suspected source of infection? No. Patient's initial sepsis screen is negative. Care prior to arrival: None. 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 - Social history:: Smoking status: unknown. - Ebola Screening: : No symptoms or risks identified at this time. Screenin:26 Abuse screen: Denies threats or abuse. Nutritional screening: No deficits noted. jd3 Tuberculosis screening: No symptoms or risk factors identified. Fall Risk Ambulatory Aid- None/Bed Rest/Nurse Assist (0 pts). Gait- Normal/Bed Rest/Wheelchair (0 pts) Mental Status- Oriented to own ability (0 pts). Total Reece Fall Scale indicates No Risk (0-24 pts). Assessment: 23:05 Reassessment: Brandy Nogueira PUBLIC HEALTH DENTIST at bedside for IV access, right EJ attempted x 1 bb unsuccessful, catheter intact, pressure dressing applied. 23:23 General: Appears in no apparent distress. uncomfortable, Behavior is calm, cooperative, jd3 appropriate for age, fussy. Pain: Complains of pain in abdomen Quality of pain is described as aching, crampy. Neuro: Level of Consciousness is awake, alert, obeys commands, Oriented to person, place, time, situation. Cardiovascular: Capillary refill < 3 seconds Patient's skin is warm and dry. Respiratory: Airway is patent Respiratory effort is even, unlabored, Respiratory pattern is regular, symmetrical. GI: Abdomen is round non-distended, Bowel sounds present X 4 quads. Abd is soft and non tender X 4 quads. Reports lower abdominal pain, upper abdominal pain, nausea, vomiting. : No signs and/or symptoms were reported regarding the genitourinary system. EENT: No signs and/or symptoms were reported regarding the EENT system. Derm: Skin is intact, Skin is dry, Skin is normal, Skin temperature is warm. Musculoskeletal: Circulation, motion, and sensation intact. Range of motion: intact in all extremities. 23:38 Reassessment: Dr Leon at bedside for evaluation of IV access. Instructed pt on need bb for central line pt verbalized understanding of and agrees to central line placement. Awaiting IV placement for lab draw for glucose >500. 23:50 Reassessment: at bedside with ER MD assisting with central line insertion. blood drawn. jd3 03/02 00:32 Reassessment: Patient appears in no apparent distress at this time. Patient and/or jd3 family updated on plan of care and expected duration. Pain level reassessed. Patient is alert, oriented x 3, equal unlabored respirations, skin warm/dry/pink. awaiting results, monitoring vital signs. pt resting in bed with call magaña in reach. no signs of distress noted at this time. 02:46 Reassessment: Patient appears in no apparent distress at this time. Patient and/or jd3 family updated on plan of care and expected duration. Pain level reassessed. Patient is alert, oriented x 3, equal unlabored respirations, skin warm/dry/pink. pt resting in bed with eyes closed, even and unlabored respirations. bed rails up X 2. family at bedside. 03:00 Reassessment: charting continued in [facility]. jd3 06:53 Reassessment: report given Tala MILTON in ICU. jd3 Vital Signs: 03/01 22:45 BP 116 / 67; Pulse 121; Resp 22 S; Temp 98.8(O); Pulse Ox 100% on R/A; Weight 54.43 kg bb (R); Height 4 ft. 11 in. (149.86 cm) (R); Pain 7/10; 03/02 00:30 BP 113 / 60; Pulse 127; Resp 20 S; Pulse Ox 99% on R/A; jd3 02:48 BP 117 / 64; Pulse 116; Resp 19 S; Pulse Ox 100% on R/A; jd3 03/01 22:45 Body Mass Index 24.24 (54.43 kg, 149.86 cm) bb ED Course: 03/01 22:27 Patient arrived in ED. do 22:37 [facility]andy Nogue[facility]-C [facility]. snw 22:38 Niko Leon MD is Attending Physician. snw 22:44 Triage completed. bb 22:45 Arm band placed on Patient placed in an exam room, on a stretcher, on pulse oximetry. bb Family accompanied patient. 23:22 Sukhwinder Shelby RN is Primary Nurse. jd3 23:26 Patient has correct armband on for positive identification. Placed in gown. Bed in low jd3 position. Call light in reach. Side rails up X 1. Adult w/ patient. 23:35 X-ray completed. Portable x-ray completed in exam room. Patient tolerated procedure kw well. 23:40 Chest Single View XRAY In Process Unspecified. EDMS 03/02 00:10 Assisted provider with central line placement. Set up central line tray. Triple lumen jd3 line placed in right femoral. Line placed by Niko Leon MD Placement verified by blood return, Dressed with Tape, Tegaderm, Blood was collected. Patient tolerated well. Before procedure, did Practitioner(s) obtain informed consent? Yes. Patient \T\ family education about procedure, CLABSI prevention and S/S of infection? Yes. Time-out/Briefing performed prior to start of procedure? Yes. Was handwashing/sanitizing done immediately prior to procedure? Yes. Was patient positioned to in a way to prevent air embolism? Yes. Was procedure site sterilized? Yes, with Betadine . Was the site allowed to dry? Yes. Was local anesthetic and/or sedation utilized? Yes. During the procedure, did the Practitioner(s) maintain a sterile field? Were unused ports clamped during insertion? Yes. Was a 2nd qualified MD obtained after 3 unsuccessful insertion attempts? N/A. Was blood aspirated from each lumen? Yes. After the procedure, did the Practitioner(s) clean the site and apply a sterile dressing? Yes. 00:10 Inserted central line placed by Dr. Leon. jd3 01:11 Notified Nurse Practitioner and/or Physician Step Down Specialist of a critical lab result(s), CO2 bb of 6, Glucose 734, Lactate 2.9. Brandy Nogueira NP notified. 01:14 Shraddha Covington MD is Hospitalizing Provider. snw 01:33 Notified Nurse Practitioner and/or Physician Step Down Specialist of a critical lab result(s), bb WBCs of 26, S [place] PUBLIC HEALTH DENTIST notified. 03:00 Patient admitted, IV remains in place. jd3 Administered Medications: 00:21 CANCELLED (Physician Discretion): Zofran 4 mg PO once jd3 00:22 Drug: NS 0.9% (30 ml/kg) 30 ml/kg Route: IV; Rate: bolus; Site: right femoral; jd3 02:53 Follow up: Response: No adverse reaction; IV Status: Completed infusion; IV Intake: jd3 1700ml 00:22 Drug: Zofran 4 mg Route: PO; jd3 00:57 Follow up: Response: No adverse reaction jd3 00:23 Drug: Insulin Regular Human 5 units {Co-Signature: silvia (Ashwini Daigle RN).} Route: IVP; jd3 Site: right femoral; 01:20 Follow up: Response: No adverse reaction jd3 00:57 CANCELLED (Physician Discretion): Zofran 4 mg IVP once; over 2 minutes jd3 00:57 Drug: Zofran 4 mg Route: IVP; Site: right femoral; jd3 01:35 Follow up: Response: No adverse reaction jd3 01:34 Drug: Insulin Regular Human 5 units {Co-Signature: silvia (Ashwini Daigle RN).} Route: IVP; jd3 Site: right femoral; 02:30 Follow up: Response: No adverse reaction jd3 01:58 Drug: Insulin Drip - (Insulin Regular Human 100 units, NS 0.9% 100 ml) {Co-Signature: rashaad guzman (Sukhwinder Shelby RN).} Route: IV; Rate: calculated rate; Site: right femoral; 03:02 Follow up: Response: No adverse reaction; IV Status: Infusion continued upon admission jd3 01:58 Drug: NS 0.9% 1000 ml Route: IV; Rate: 125 ml/hr; Site: right femoral; rv 03:01 Follow up: Response: No adverse reaction; IV Status: Infusion continued upon admission jd3 Point of Care Testing: Blood Glucose: 03/01 22:45 Blood Glucose: High (>450 mg/dL); bb 03/02 01:17 Blood Glucose: 480 mg/dL; jd3 02:59 Blood Glucose: 228 mg/dL; jd3 Ranges: Intake: 02:53 IV: 1700ml; Total: 1700ml. jd3 Outcome: 01:15 Decision to Hospitalize by Provider. snw 03:00 Admitted to ER Hold. Please see [facility] for further documentation. jd3 03:00 Condition: stable 03:00 Instructed on the need for admit, Demonstrated understanding of instructions. 07:36 Patient left the ED. sg Signatures: Dispatcher [employer] EDMS Rene Linares RN RN sg Brandy Nogueira, HYDRAULIC PRESS TENDER-C HYDRAULIC PRESS TENDER-Csnw Ashwini Daigle RN RN bb Whitley, Kimberlee kw Ogletree, Danielle do Davies, Jonathon, RN RN jd3 Vicente, Ronaldo, RN RN rv Brenda Ballard RN bb Jonathon Davies RN jred Corrections: (The following items were deleted from the chart) 00:32 00:30 Pulse 127bpm; Resp 20bpm; Spontaneous; Pulse Ox 99% RA; jd3 jd3 01:06 00:32 Reassessment: Patient appears in no apparent distress at this time. Patient jd3 and/or family updated on plan of care and expected duration. Pain level reassessed. Patient is alert, oriented x 3, equal unlabored respirations, skin warm/dry/pink. awaiting results. jd3 02:49 02:48 BP 117 / 64; Pulse 116bpm; Resp 19bpm; Spontaneous; Pulse Ox 100% RA; Pain 5/10; jd3 jd3
--- NOTE | 2019-03-02 01:42 | EDPHYS ---
Physician Documentation [facility] Name: Cristina Wheeler Age: 28 yrs Sex: Female : 1990 Arrival Date: 03/01/2019 Time: 22:27 Bed 18 Private MD: ED Physician Niko Leon HPI: 03/01 23:14 This 28 yrs old Female presents to ER via Ambulatory with complaints of High snw Blood Sugar. 23:14 that was potentially precipitated by ran out of insulin. Onset: The symptoms/episode snw began/occurred yesterday. Associated signs and symptoms: Pertinent positives: anorexia, polydipsia, vomiting. Current symptoms: In the emergency department the patient's symptoms are unchanged from the initial presentation. The patient has experienced similar episodes in the past. It is unknown whether or not the patient has recently seen a physician. 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 - Social history:: Smoking status: unknown. - Ebola Screening: : No symptoms or risks identified at this time. ROS: 23:14 Constitutional: Negative for fever, chills, and weight loss, + vomiting Eyes: Negative snw for injury, pain, redness, and discharge, ENT: Negative for injury, pain, and discharge, Neck: Negative for injury, pain, and swelling, Cardiovascular: Negative for chest pain, palpitations, and edema, Respiratory: Negative for shortness of breath, cough, wheezing, and pleuritic chest pain. 23:14 Back: Negative for injury and pain, : Negative for injury, bleeding, discharge, and swelling, MS/Extremity: Negative for injury and deformity, Skin: Negative for injury, rash, and discoloration, Neuro: Negative for headache, weakness, numbness, tingling, and seizure. 23:14 Abdomen/GI: Positive for nausea and vomiting. Exam: 23:15 Eyes: Pupils equal round and reactive to light, extra-ocular motions intact. Lids and snw lashes normal. Conjunctiva and sclera are non-icteric and not injected. Cornea within normal limits. Periorbital areas with no swelling, redness, or edema. ENT: Nares patent. No nasal discharge, no septal abnormalities noted. Tympanic membranes are normal and external auditory canals are clear. Oropharynx with no redness, swelling, or masses, exudates, or evidence of obstruction, uvula midline. Mucous membranes moist. Neck: Trachea midline, no thyromegaly or masses palpated, and no cervical lymphadenopathy. Supple, full range of motion without nuchal rigidity, or vertebral point tenderness. No Meningismus. Chest/axilla: Normal chest wall appearance and motion. Nontender with no deformity. No lesions are appreciated. 23:15 Abdomen/GI: Soft, non-tender, with normal bowel sounds. No distension or tympany. No guarding or rebound. No evidence of tenderness throughout. Back: No spinal tenderness. No costovertebral tenderness. Full range of motion. MS/ Extremity: Pulses equal, no cyanosis. Neurovascular intact. Full, normal range of motion. Neuro: Awake and alert, GCS 15, oriented to person, place, time, and situation. Cranial nerves II-XII grossly intact. Motor strength 5/5 in all extremities. Sensory grossly intact. Cerebellar exam normal. Normal gait. 23:15 Constitutional: The patient appears awake, anxious, restless. 23:15 Head/face: Noted is pallor to face. 23:15 Cardiovascular: Rate: tachycardic, Rhythm: regular, Pulses: pulse deficits are appreciated, Heart sounds: normal. 23:15 Respiratory: the patient does not display signs of respiratory distress, Respirations: shallow respirations, Respiratory rate: tachypnea 23:15 Skin: Appearance: Color: pale. 23:20 ECG was reviewed by the Attending Physician. [facility] Vital Signs: 22:45 BP 116 / 67; Pulse 121; Resp 22 S; Temp 98.8(O); Pulse Ox 100% on R/A; Weight 54.43 kg bb (R); Height 4 ft. 11 in. (149.86 cm) (R); Pain 7/10; 03/02 00:30 BP 113 / 60; Pulse 127; Resp 20 S; Pulse Ox 99% on R/A; jd3 02:48 BP 117 / 64; Pulse 116; Resp 19 S; Pulse Ox 100% on R/A; jd3 03/01 22:45 Body Mass Index 24.24 (54.43 kg, 149.86 cm) bb Procedures: 00:23 Central Line: the site was prepped with Betadine, in sterile fashion, a triple lumen tam catheter was inserted, in the right femoral vein, in 3 attempts. placement was verified, by blood return, the site was dressed with 4X4s, using sterile technique, the patient tolerated the procedure, well. MDM: 03/01 22:38 Patient medically screened. [facility] 23:42 Data reviewed: vital signs, nurses notes. Data interpreted: Pulse oximetry: on room air snw is 100 %. Interpretation: normal. 03/02 01:13 Physician consultation: Shraddha Covington MD was called at 01:13, was contacted at 01:13, w regarding admission, to the ICU, patient's condition, in the emergency department to see patient at 01:13. 03/01 22:52 Order name: ABG; Complete Time: 01:12 [facility] 03/01 22:52 Order name: Basic Metabolic Panel [facility] 03/01 22:52 Order name: Blood Culture Adult (2) [facility] 03/01 22:52 Order name: CBC with Diff [facility] 03/01 22:52 Order name: CPK [facility] 03/01 22:52 Order name: Lactate [facility] 03/01 22:52 Order name: LFT's [facility] 03/01 22:52 Order name: Procalcitonin [facility] 03/01 22:52 Order name: Ptt, Activated [facility] 03/01 22:52 Order name: Urine Microscopic Only; Complete Time: 04:50 sn 03/01 22:53 Order name: Blood Culture [facility] 03/01 22:54 Order name: CBC with Automated Diff; Complete Time: 02:46 EDAZ 03/02 00:10 Order name: Basic Metabolic Panel [facility] 03/02 00:10 Order name: Liver (Hepatic) Function EDAZ 03/02 00:10 Order name: Creatine Phosphokinase EDAZ 03/02 00:10 Order name: CKMB Creatine Kinase MB [facility] 03/02 00:10 Order name: Lipase EDMS 03/02 01:17 Order name: Glucose jd3 03/02 01:18 Order name: Glucose, Ancillary Testing; Complete Time: 01:52 EDMS 03/02 02:06 Order name: Glucose Level; Complete Time: 02:10 EDMS 03/02 02:18 Order name: Manual Differential; Complete Time: 02:46 EDMS 03/02 02:47 Order name: Urine Dipstick--Ancillary (enter results) 2 03/02 02:47 Order name: Urine --Ancillary (enter results) 2 03/02 02:57 Order name: Urine --Ancillary; Complete Time: 03:01 EDMS 03/02 02:57 Order name: Urine Dipstick-Ancillary; Complete Time: 03:01 EDMS 03/01 22:52 Order name: Chest Single View XRAY snw 03/01 22:52 Order name: Accucheck; Complete Time: 23:27 snw 03/01 22:52 Order name: Cardiac monitoring; Complete Time: 23:27 snw 03/01 22:52 Order name: EKG - Nurse/Tech; Complete Time: 23:27 snw 03/01 22:52 Order name: IV Saline Lock - Large Bore; Complete Time: 00:24 snw 03/01 22:52 Order name: Labs collected and sent; Complete Time: 00:24 snw 03/01 22:52 Order name: O2 Per Protocol; Complete Time: 23:27 snw 03/01 22:52 Order name: O2 Sat Monitoring; Complete Time: 23:27 snw 03/01 22:52 Order name: Urine Dipstick-Ancillary (obtain specimen); Complete Time: 02:53 snw 03/02 04:27 Order name: Basic Metabolic Panel; Complete Time: 04:50 EDMS 03/02 04:35 Order name: Acetone Level; Complete Time: 04:50 EDMS 03/02 05:38 Order name: Phosphorus EDMS 03/02 05:38 Order name: Magnesium EDMS 03/02 05:55 Order name: CBC with Automated Diff EDMS 03/02 05:59 Order name: Lactate Sepsis 2 HR Follow-up EDMS 03/02 07:12 Order name: Glucose, Ancillary Testing EDMS 03/02 07:31 Order name: Acetone Level EDMS Administered Medications: 00:21 CANCELLED (Physician Discretion): Zofran 4 mg PO once jd3 00:22 Drug: NS 0.9% (30 ml/kg) 30 ml/kg Route: IV; Rate: bolus; Site: right femoral; jd3 02:53 Follow up: Response: No adverse reaction; IV Status: Completed infusion; IV Intake: jd3 1700ml 00:22 Drug: Zofran 4 mg Route: PO; jd3 00:57 Follow up: Response: No adverse reaction jd3 00:23 Drug: Insulin Regular Human 5 units {Co-Signature: silvia (Ashwini Daigle RN).} Route: IVP; jd3 Site: right femoral; 01:20 Follow up: Response: No adverse reaction jd3 00:57 CANCELLED (Physician Discretion): Zofran 4 mg IVP once; over 2 minutes jd3 00:57 Drug: Zofran 4 mg Route: IVP; Site: right femoral; jd3 01:35 Follow up: Response: No adverse reaction jd3 01:34 Drug: Insulin Regular Human 5 units {Co-Signature: silvia (Ashwini Daigle RN).} Route: IVP; jd3 Site: right femoral; 02:30 Follow up: Response: No adverse reaction jd3 01:58 Drug: Insulin Drip - (Insulin Regular Human 100 units, NS 0.9% 100 ml) {Co-Signature: rashaad jd3 (Sukhwinder Shelby RN).} Route: IV; Rate: calculated rate; Site: right femoral; 03:02 Follow up: Response: No adverse reaction; IV Status: Infusion continued upon admission jd3 01:58 Drug: NS 0.9% 1000 ml Route: IV; Rate: 125 ml/hr; Site: right femoral; rv 03:01 Follow up: Response: No adverse reaction; IV Status: Infusion continued upon admission jd3 Point of Care Testing: Blood Glucose: 03/01 22:45 Blood Glucose: High (>450 mg/dL); bb 03/02 01:17 Blood Glucose: 480 mg/dL; jd3 02:59 Blood Glucose: 228 mg/dL; jd3 Ranges: Critical Glucose Levels:Adult <50 mg/dl or >400 mg/dl <40 mg/dl or >180 mg/dl Disposition: 00:24 Co-signature as Attending Physician, Niko Leon MD I agree with the assessment and tam plan of care. Disposition: 03/02/19 01:15 Hospitalization ordered by Shraddha Covington for Inpatient Admission. Preliminary diagnosis is Type 1 diabetes mellitus with ketoacidosis without coma. - Bed requested for Intensive Care Unit. - Status is Inpatient Admission. sg - Condition is Fair. - Problem is an acute exacerbation. - Symptoms are unchanged. UTI on Admission? No Signatures: Dispatcher [employer] [facility] Kaylin Lynn RN RN Rene Linares RN Niko Miller MD MD cha Therrien, Shelly, AIRPORT MAINTENANCE CHIEF-C AIRPORT MAINTENANCE CHIEF-Csnw Ashwini Daigle, RN RN bb Sukhwinder Shelby RN RN jd3 Vanesa Sanchez mw2 Indra Khan RN RN Ashwini Daigle RN bb Sukhwinder Shelby RN jd3 Corrections: (The following items were deleted from the chart) 00:02 03/01 22:53 Basic Metabolic Panel ordered. [facility] 03/02 00:02 03/01 22:55 Creatine Phosphokinase ordered. [facility] 03/02 00:02 03/01 22:55 Liver (Hepatic) Function ordered. [facility] 03/02 00:05 03/01 22:55 CKMB+C.LAB.BRZ ordered. [facility] 03/02 00:05 03/01 22:55 LIPASE+C.LAB.BRZ ordered. [facility] 03/02 00:21 00:21 Zofran 4 mg PO once ordered. jd3 jd3 00:57 00:56 Zofran 4 mg IVP once; over 2 minutes ordered. jd3 jd3 02:08 01:15 Hospitalization Ordered by Shraddha Covington MD for Inpatient Admission. Preliminary mw2 diagnosis is Type 1 diabetes mellitus with ketoacidosis without coma. Bed requested for Intensive Care Unit. Status is Inpatient Admission. Condition is Fair. Problem is an acute exacerbation. Symptoms are unchanged. UTI on Admission? No. snw 05:15 02:08 03/02/2019 01:15 Hospitalization Ordered by Shraddha Covington MD for Inpatient mw Admission. Preliminary diagnosis is Type 1 diabetes mellitus with ketoacidosis without coma. Bed requested for [facility] ER HOLD. Status is Inpatient Admission. Condition is Fair. Problem is an acute exacerbation. Symptoms are unchanged. UTI on Admission? No. mw2 07:36 05:15 03/02/2019 01:15 Hospitalization Ordered by Shraddha Covington MD for Inpatient sg Admission. Preliminary diagnosis is Type 1 diabetes mellitus with ketoacidosis without coma. Bed requested for Intensive Care Unit. Status is Inpatient Admission. Condition is Fair. Problem is an acute exacerbation. Symptoms are unchanged. UTI on Admission? No. mw
[2019-03-02] MEDS ORDERED: INSULIN -REGULAR HUMAN 50 UNIT/0.5 ML ML ONE ×2 (01:46→02:03)
[2019-03-02] MEDS ORDERED: NA CHLORIDE 0.9% 100 ML IV ONE (01:46)
[2019-03-02] MEDS ORDERED: D5 0.45 NS 1,000 ML IV SCH (02:00)
[2019-03-02] MEDS ORDERED: NA CHLORIDE 0.9% 1,000 ML ONE (02:10)
[2019-03-02 02:17] LABS: Blood Morphology Comment NOT SEEN (NOT SEEN); Platelet Estimate ADEQ
[2019-03-02 02:57] LABS: Urine Blood TRACE (NEG); Urine Glucose 2+ (NEG); Urine Protein 1+ (NEG)
[2019-03-02] MEDS ORDERED: MORPHINE 4 MG/ML SYR IV PRN (03:07)
[2019-03-02 03:10] LABS: Urine Bacteria <20 /HPF (<20); Urine Culture Reflex Order NOT NEEDED; Urine RBC <5 /HPF (NONE SEEN)
[2019-03-02] MEDS ORDERED: D5 0.45 NS 1,000 ML IV ONE (03:33)
[2019-03-02 04:05] LABS: BUN Blood Urea Nitrogen 25 mg/dL (7-18); Glucose Level 256 mg/dL (74-106); Potassium 4.2 mmol/L (3.5-5.1); Sodium Level 139 mmol/L (136-145)
[2019-03-02 04:26] LABS: Bicarbonate 12 mmol/L (21-32)
[2019-03-02 05:38] LABS: Magnesium 1.9 mg/dL (1.8-2.4); Phosphorus 3.1 mg/dL (2.5-4.9)
[2019-03-02 05:51] LABS: Basophils % 0.5 % (0-1.3); Hematocrit 33.5 % (36.0-45.0); MPV 9.1 fL (7.6-11.3); RBC Red Blood Cell Count 3.86 M/uL (3.86-4.86)
--- NOTE | 2019-03-02 06:10 | P.HP ---
Certification for Inpatient Patient admitted to: Inpatient With expected LOS: >2 Midnights Patient will require the following post-hospital care: Other Practitioner: I am a practitioner with admitting privileges, knowledge of patient current condition, hospital course, and medical plan of care. Services: Services provided to patient in accordance with Admission requirements found in Title 42 Section 412.3 of the Code of Federal Regulations Patient History Date of Service: 03/02/19 Reason for admission: Diabetic ketoacidosis History of Present Illness: Patient is a 28-year-old female came to the hospital with shortness of breath. She had not been taking her insulin for the last few days because she had run out of it. She was able to for the 25 dollars and cost for her insulin 70/30. She has not been taking her long-acting insulin either. This has been a recurrent issue with air throughout her life. She has already developed neuropathy from her diabetes being so poorly controlled. Review of her aggressive IV hydration and started her on an insulin drip. Her anion gap is approximately 30. She will need aggressive hydration along with an insulin drip. Will need to monitor her closely for any electrolyte abnormalities. Any case management to assist in her care to see if she can get some vials of insulin 70/30 to a prescription assistance program. Unfortunately, she does not really make any changes in her lifestyle so she can at least get her insulin from the store. And from talking to her, I do not see the ability to understand the gravity of her situation. Hopefully we can get her ketosis improved today. Plan to start her on a diet once her anion gap is closed and will start her on her insulin 70/30. Allergies ibuprofen Adverse Reaction (Verified 10/29/18 09:02) Nausea/Vomiting oseltamivir [From Tamiflu] Adverse Reaction (Verified 10/29/18 09:02) Hives/Rash Penicillins Adverse Reaction (Verified 10/29/18 09:02) Itching/Hives/Rash Sulfa (Sulfonamide Antibiotics) Adverse Reaction (Verified 10/29/18 09:02) Itching/Hives/Rash Home Medications: Insulin Glargine Human [Lantus*] 15 unit SQ BID #1 vial 10/06/18 Gabapentin 600 mg PO TID 10/29/18 Insulin -Regular Human [Novolin -R*] See Protocol SQ ACHS #1 vial 11/01/18 - Past Medical/Surgical History Has patient received pneumonia vaccine in the past: No Diabetic: Yes -: diabetes mellitus I -: neuropathy -: ankle sx - Family History Father Medical History: Diabetes - Social History Smoking Status: Smoker current status UNK Review of Systems 10-point ROS is otherwise unremarkable Physical Examination - Vital Signs Temperature: 99 F Blood Pressure: 116/70 Pulse: 104 Respirations: 14 Pulse Ox (%): 97 - Physical Exam General: Alert, In no apparent distress, Oriented x3 HEENT: Atraumatic, PERRLA, Mucous membr. moist/pink, EOMI, Sclerae nonicteric Neck: Supple, 2+ carotid pulse no bruit, No LAD, Without JVD or thyroid abnormality Respiratory: Clear to auscultation bilaterally, Normal air movement Cardiovascular: Regular rate/rhythm, Normal S1 S2, No murmurs Gastrointestinal: Normal bowel sounds, Soft and benign, Non-distended, No tenderness Musculoskeletal: No clubbing, No swelling, No tenderness Integumentary: No rashes Neurological: Normal gait, Normal speech, Normal strength at 5/5 x4 extr, Normal tone, Sensation intact, Cranial nerves 3-12 intact, Normal affect Lymphatics: No axilla or inguinal lymphadenopathy - Studies Laboratory Data (last 24 hrs) 03/02/19 00:48: APTT 31.1 03/02/19 00:48: WBC 20.5 H*, Hgb 12.7, Hct 40.5, Plt Count 290 03/02/19 00:10: Sodium 128 L, Potassium 5.4 H, BUN 32 H, Creatinine 1.17, Glucose 734 H*, Total Bilirubin 1.1 H, AST 7 L, ALT 17, Alkaline Phosphatase 102 , Lipase 86 03/01/19 23:10: Sodium Cancelled, Potassium Cancelled, BUN Cancelled, Creatinine Cancelled, Glucose Cancelled, Total Bilirubin Cancelled, AST Cancelled, ALT Cancelled, Alkaline Phosphatase Cancelled, Lipase Cancelled Assessment & Plan - Problems (Diagnosis) (1) DKA, type 1 Current Visit: No Status: Acute (2) Diabetes mellitus Current Visit: No Status: Acute - Plan 1. IV hydration 2. Insulin drip 3. Accu-Cheks q1h 4. Measure anion gap every 2-4 hrs 5. Resume diet once anion gap is closed and will resume insulin pump 6. Diabetic education 7. Long-acting insulin once patient able to tolerate diet and at that time will discontinue insulin drip Discharge Plan: Home Plan to discharge in: 48 Hours - Advance Directives Does patient have a Living Will: No Does patient have a Durable POA for Healthcare: No - Code Status/Comfort Care Code Status Assessed: Yes Code Status: Full Code Critical Care: Yes Time Spent Managing PTS Care (In Minutes): 50
[2019-03-02] MEDS ORDERED: D5W 1,000 ML IV SCH ×2 (07:00→13:00)
[2019-03-02 07:39] LABS: BUN Blood Urea Nitrogen 19 mg/dL (7-18); Bicarbonate 20 mmol/L (21-32); Glucose Level 187 mg/dL (74-106); Potassium 3.9 mmol/L (3.5-5.1); Sodium Level 138 mmol/L (136-145)
--- NOTE | 2019-03-02 07:54 | RAD REPORT ---
EXAM DESCRIPTION: Rafael Single View03/01/2019 11:39 pm CLINICAL HISTORY: Shortness of breath COMPARISON: February 15, 2019 FINDINGS: The lungs appear clear of acute infiltrate. The heart is normal size IMPRESSION: No acute abnormalities displayed
[2019-03-02] MEDS: ENOXAPARIN 40 MG/0.4 ML SQ SCH (08:40)
[2019-03-02 11:41] LABS: BUN Blood Urea Nitrogen 14 mg/dL (7-18); Bicarbonate 22 mmol/L (21-32); Glucose Level 131 mg/dL (74-106); Potassium 3.7 mmol/L (3.5-5.1); Sodium Level 139 mmol/L (136-145)
[2019-03-02] MEDS ORDERED: GLUCAGON 1 MG/VIAL IM PRN ×2 (12:07→20:28)
[2019-03-02] MEDS ORDERED: D50W 25 GM/50 ML SYRINGE IV PRN ×2 (12:07→20:28)
--- NOTE | 2019-03-02 15:39 | EKG ---
Test Date: 2019-03-01 Test Time: 23:20:10 Pe Electrical Engineer: RADHA MEASUREMENT RESULTS: Intervals: Rate: 121 [place]: 120 QRSD: 74 QT: 322 QTc: 457 [place]: P: 75 [place]: 120 QRS: 79 T: 17 INTERPRETIVE STATEMENTS: Sinus tachycardia Biatrial enlargement Abnormal ECG No previous ECG available for comparison Electronically Signed On 03-02-19 15:35:33 CDT by Leodan Arboleda
[2019-03-02 15:49] LABS: BUN Blood Urea Nitrogen 13 mg/dL (7-18); Bicarbonate 23 mmol/L (21-32); Glucose Level 91 mg/dL (74-106); Potassium 3.7 mmol/L (3.5-5.1); Sodium Level 140 mmol/L (136-145)
[2019-03-02] MEDS: INSULIN -REGULAR HUMAN 50 UNIT/0.5 ML ML SQ SCH ×2 (16:23→21:00)
[2019-03-02] MEDS ORDERED: KCL 20 MEQ/100 mL IVPB 20 MEQ/100 ML BAG IV SCH (17:00)
[2019-03-02 20:54] LABS: BUN Blood Urea Nitrogen 16 mg/dL (7-18); Bicarbonate 16 mmol/L (21-32); Glucose Level 356 mg/dL (74-106); Potassium 5.3 mmol/L (3.5-5.1); Sodium Level 134 mmol/L (136-145)
[2019-03-02] MEDS ORDERED: INSULIN 70/30 100 UNITS/ML SQ ONE ×2 (20:54→23:00)
[2019-03-03 00:09] LABS: BUN Blood Urea Nitrogen 17 mg/dL (7-18); Bicarbonate 18 mmol/L (21-32); Glucose Level 246 mg/dL (74-106); Sodium Level 138 mmol/L (136-145)
[2019-03-03 06:03] LABS: Absolute Lymphocytes (CBC) 2.4 K/uL (0.7-4.9); Basophils % 0.9 % (0-1.3); Hematocrit 31.4 % (36.0-45.0); Lymphocytes % 32.2 % (15.3-44.8); MPV 9.2 fL (7.6-11.3); RBC Red Blood Cell Count 3.63 M/uL (3.86-4.86)
[2019-03-03 06:12] LABS: Magnesium 1.9 mg/dL (1.8-2.4); Phosphorus 2.1 mg/dL (2.5-4.9)
[2019-03-03 06:18] VITALS: O2SAT 96
[2019-03-03] MEDS: INSULIN -REGULAR HUMAN 50 UNIT/0.5 ML ML SQ SCH ×2 (08:26→12:01)
[2019-03-03] MEDS: ENOXAPARIN 40 MG/0.4 ML SQ SCH (08:27)
[2019-03-03] MEDS: POTASS/SODIUM PHOSPHATE 1 PKT POWD.PACK PO SCH ×3 (08:28→12:01)
[2019-03-03] MEDS ORDERED: INSULIN GLARGINE 100 UNITS/ML SQ SCH ×2 (09:00→12:08)
[2019-03-03 10:57] VITALS: BMI 24.2
[2019-03-03 12:36] VITALS: BP 103/71; TEMP 97.9
--- NOTE | 2019-03-03 12:48 | P.SSS ---
Patient History Date of Service: 03/03/19 Reason for admission: Diabetic ketoacidosis History of Present Illness: Patient is a 28-year-old female came to the hospital with shortness of breath. She had not been taking her insulin for the last few days because she had run out of it. She was able to for the 25 dollars and cost for her insulin 70/30. She has not been taking her long-acting insulin either. This has been a recurrent issue with air throughout her life. She has already developed neuropathy from her diabetes being so poorly controlled. Review of her aggressive IV hydration and started her on an insulin drip. Her anion gap is approximately 30. She will need aggressive hydration along with an insulin drip. Will need to monitor her closely for any electrolyte abnormalities. Any case management to assist in her care to see if she can get some vials of insulin 70/30 to a prescription assistance program. Unfortunately, she does not really make any changes in her lifestyle so she can at least get her insulin from the store. And from talking to her, I do not see the ability to understand the gravity of her situation. Hopefully we can get her ketosis improved today. Plan to start her on a diet once her anion gap is closed and will start her on her insulin 70/30. Allergies ibuprofen Adverse Reaction (Verified 10/29/18 09:02) Nausea/Vomiting oseltamivir [From Tamiflu] Adverse Reaction (Verified 10/29/18 09:02) Hives/Rash Penicillins Adverse Reaction (Verified 10/29/18 09:02) Itching/Hives/Rash Sulfa (Sulfonamide Antibiotics) Adverse Reaction (Verified 10/29/18 09:02) Itching/Hives/Rash Home Medications: Insulin Glargine Human [Lantus*] 15 unit SQ BID #1 vial 10/06/18 Gabapentin 600 mg PO TID 10/29/18 Insulin -Regular Human [Novolin -R*] See Protocol SQ ACHS #1 vial 11/01/18 - Past Medical/Surgical History Has patient received pneumonia vaccine in the past: No Diabetic: Yes -: diabetes mellitus I -: neuropathy -: ankle sx - Family History Father -: Diabetes - Social History Smoking Status: Smoker current status UNK Alcohol use: Yes CD- Drugs: No Caffeine use: Yes Review of Systems 10-point ROS is otherwise unremarkable Physical Examination - Vital Signs Temperature: 97.9 F Blood Pressure: 103/71 Pulse: 91 Respirations: 16 Pulse Ox (%): 99 - Physical Exam General: Alert, In no apparent distress HEENT: Atraumatic, PERRLA, Mucous membr. moist/pink, EOMI, Sclerae nonicteric Neck: Supple, 2+ carotid pulse no bruit, No LAD, Without JVD or thyroid abnormality Respiratory: Clear to auscultation bilaterally, Normal air movement Cardiovascular: Regular rate/rhythm, Normal S1 S2 Gastrointestinal: Normal bowel sounds, No tenderness Musculoskeletal: No tenderness Integumentary: No rashes Neurological: Normal gait, Normal speech, Normal strength at 5/5 x4 extr, Normal tone, Normal affect Lymphatics: No axilla or inguinal lymphadenopathy - Diagnosis (Problem(s)) (1) DKA, type 1 Current Visit: No Status: Chronic Qualifiers: Diabetes mellitus complication detail: without coma Qualified Code(s): E10.10 - Type 1 diabetes mellitus with ketoacidosis without coma Treatment Summary: Overall patient did well here in the hospital. Was on insulin drip and now off of it continue the long-acting insulin. Patient was noncompliant with medication continues to smoke while here in the hospital requesting money to buy her medication was provided with money however used to herself vapor educated extensively regarding the need to continue taking her medications at home. - Disposition Disposition: ROUTINE DISCHARGE Condition: GOOD Diet: Regular Activity: Ad latosha
[2019-03-03] MEDS ORDERED: INSULIN 70/30 100 UNITS/ML SQ ONE ×2 (20:29→23:41)
== END 2019-03-03 14:30 | disposition home or self-care (01) | DRG 639 ==
LOC: ER 22:24 → ERHOLD 03-02 01:20 → 3RD-ICU 03-02 07:10 → 2ND 03-02 21:37
PROVIDERS: ADMIT Hospitalist; ATTEND Family Medicine
DX: E10.10 Type 1 diabetes mellitus with ketoacidosis without coma (principal); E10.40 Type 1 diabetes mellitus with diabetic neuropathy, unspecified; Z91.14 Patient's other noncompliance with medication regimen; F17.210 Nicotine dependence, cigarettes, uncomplicated; Z79.4 Long term (current) use of insulin; Z88.0 Allergy status to penicillin; Z88.2 Allergy status to sulfonamides
CPT/HCPCS: 36415; 71045; 80048; 80076; 81003; 81015; 81025; 82010; 82550; 82553; 82805; 82947; 82962; 83605; 83690; 83735; 84100; 84145; 85025; 85730; 87040; 93005; 96365; 96366; 96375; 99285; J1650; J2405; J7030

== ENCOUNTER 2019-04-22 14:53 | Emergency (ER) | payer OTHER ==
--- OUTSIDE RECORDS SUMMARY | 2019-04-22 14:55 | XMS REPORT ---
:1990 Author Organization [facility] Address [address] [place] [address] Care Team Providers Name Role Phone Unavailable [...]
--- OUTSIDE RECORDS SUMMARY | 2019-04-22 14:55 | XMS REPORT | Clinical Summary ---
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
--- OUTSIDE RECORDS SUMMARY | 2019-04-22 14:56 | XMS REPORT | Summary of Care ---
:1990 Author Organization [facility] Address [address] [place] [id number] Care Team Providers Name Role Phone Pcp, Patient Does Not Have A Primary Care Provider Reason for Visit Reason Comments Hyperglycemia Auth/Cert Status Reason Specialty Diagnoses / Referred By Referred To Procedures Contact Contact [facility] [address] [place] [address] [place] [address] Encounter Details Date Type Department Care Team Description 04/15/2019 Emergency [facility]-Emergency [facility] Day, Hyperglycemia (Primary Department HOSPICE TEAM LEAD Dx) [address] [place] [address] [address] [place] [address] [id number] [place], [place] [id number] Allergies Active Allergy Reactions Severity Noted Date Comments Penicillins Rash 12/18/2004 Sulfa (Sulfonamide Antibiotics) Unknown - See comments 04/15/2019 documented as of this encounter (statuses as of 04/15/2019) Medications Medication Sig Dispensed Refills Start Date End Date Status KETONE URINE TEST IN use when 12 boxes (3 1 08/28/2009 Active VITRO STRP fingerstick month supply) glucose is >300 INSULIN ASPART 100 inject SC TID QS for 1 month 11 01/01/2010 Active UNIT/ML SC SOLN before meals per sliding scale max 30 units per day ACCU-CHEK MULTICLIX use up to 5 3 months 3 01/01/2010 Active LANCET MISC MISC lancets per day with glucometer ACCU-CHEK GUANAKO IN use up to 5 3 months 3 01/01/2010 Active VITRO STRP strips daily with glucometer, for uncontrolled diabetes BD INSULIN SYRINGE use for insulin 3 month 3 01/01/2010 Active ULT-FINE II 1 ML 31 injection, up to X 5/16INCH MISC SYRG 5 syringes daily PRECISION XTRA TEST use to test blood 100 6 01/01/2010 Active IN VITRO STRP sugar and ketones insulin glargine inject 0.25 mL qs for 3months 3 02/09/2010 Active (LANTUS U-100) 100 under the skin unit/mL injection every morning. simvastatin (ZOCOR) Take 1 Tab by 30 3 03/23/2010 Active 40 mg mouth at bedtime. 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 Type 1 diabetes mellitus 04/27/2005 Overview: ICD10 Diagnosis Term [employer] Utility Astigmatism 04/27/2005 Overview: ICD10 Diagnosis Term [employer] Utility documented as of this encounter (statuses as of 04/15/2019) Resolved Problems Problem Noted Date Resolved Date Fracture of unspecified bones 12/01/2005 06/12/2007 Overview: ICD10 Diagnosis Term [employer]ocker Utility Other follow-up examination(V67.59) 04/27/2005 06/12/2007 Adjustment reaction 04/27/2005 07/29/2007 Overview: ICD10 Diagnosis Term [employer] Utility Problems with learning 04/27/2005 07/29/2007 documented as of this encounter (statuses as of 04/15/2019) Immunizations Name Administration Dates Next Due DTAP 05/13/1995 DTP 05/13/1995, 11/05/1992, 01/17/1992, 1991, 1991 HEPATITIS A 05/16/2003, 11/22/2002 HIB 4 Dose Schedule 11/05/1992, 01/17/1992, 1991, 1991 Hep B, Adol or Pedi Dosage 05/16/2003, 12/24/2002, 11/22/2002 Influenza Virus Vaccine - Whole 06/29/2005 MMR 05/13/1995, 11/05/1992 Meningococcal Polysaccharide (groups 01/05/2007 A, C, Y and W-135) conjugate vaccine (MCV4P) Polio (IPV/OPV) 05/13/1995, 11/05/1992, 01/17/1992, 1991, 1991 Td 05/16/2003 Tdap 01/05/2007 documented as of this encounter Social History Tobacco Use Types Packs/Day Years Used Date Never Smoker Alcohol Use Drinks/Week oz/Week Comments No Sex Assigned at Date Recorded Not on file Job Start Date Occupation Industry Not on file Not on file Not on file Travel History Travel Start Travel End No recent travel history available. documented as of this encounter Last Filed Vital Signs Vital Sign Reading Time Taken Comments Blood Pressure 107/70 04/15/2019 3:58 PM CDT Pulse 106 04/15/2019 3:58 PM CDT Temperature 35.8 C (96.5 F) 04/15/2019 3:58 PM CDT Respiratory Rate 18 04/15/2019 3:58 PM CDT Oxygen Saturation 97% 04/15/2019 3:58 PM CDT Inhaled Oxygen Concentration - - Weight 54.4 kg (120 lb) 04/15/2019 3:58 PM CDT Height 147.3 cm (4' 10") 04/15/2019 3:58 PM CDT Body Mass Index 25.08 04/15/2019 3:58 PM CDT documented in this encounter Plan of Treatment Name Type Priority Associated Diagnoses Date/Time GLYCOSYLATED HEMOGLOBIN LAB STAT Hyperglycemia 04/15/2019 4:24 PM CDT (A1C) Name Type Priority Associated Diagnoses Order Schedule AC ABG + LACTIC ACID LAB STAT Hyperglycemia STAT for 1 Occurrences starting 04/15/2019 until 04/15/2019 Lactic Acid Whole Blood LAB Routine Hyperglycemia STAT for 1 Occurrences starting 04/15/2019 GLYCOSYLATED HEMOGLOBIN LAB Routine Hyperglycemia ONCE for 1 Occurrences (A1C) starting 04/15/2019 until 04/15/2019 RAPID STREP SCREEN FOR LAB Routine Hyperglycemia ONCE for 1 Occurrences GROUP A starting 04/15/2019 until 04/15/2019 Health Maintenance Due Date Last Done Comments PNEUMOCOCCAL 0-64 YEARS COMBINED 1997 SERIES (1 of 1 - PPSV23) EYE EXAM 2001 FOOT EXAM 2009 URINE MICROALBUMIN 11/25/2009 11/25/2008, 04/05/2007, 05/12/2006, Additional history exists HgA1C 09/23/2010 03/23/2010, 01/01/2010, 10/02/2009, Additional history exists CREATININE (SERUM) 10/05/2010 10/05/2009, 10/04/2009, 10/04/2009, Additional history exists LDL-C 03/23/2011 03/23/2010, 07/04/2009, 11/25/2008, Additional history exists PAP SMEAR 2012 DTaP,Tdap,and Td Vaccines (7 - Td) 01/05/2017 01/05/2007, 05/16/2003, 05/13/1995, Additional history exists INFLUENZA VACCINE (#1) 2019 06/29/2005 documented as of this encounter Procedures Procedure Name Priority Date/Time Associated Diagnosis Comments CBC WITH DIFFERENTIAL STAT 04/15/2019 4:24 Hyperglycemia Results for this PM CDT procedure are in the results section. CBC WITH DIFF STAT 04/15/2019 4:24 Hyperglycemia Results for this PM CDT procedure are in the results section. COMP. METABOLIC PANEL STAT 04/15/2019 4:24 Hyperglycemia Results for this ([id number]) PM CDT procedure are in the results section. NOTICE OF PRIVACY Routine 04/15/2019 3:43 PRACTICES PM CDT CONSENT/REFUSAL FOR Routine 04/15/2019 3:43 DIAGNOSIS AND PM CDT TREATMENT documented in this encounter Results CBC WITH DIFFERENTIAL (04/15/2019 4:24 PM CDT) WBC 8.36 4.30 - 11.10 [facility] 10*3/L [facility] RBC 4.49 3.93 - 5.25 [facility] 10*6/L [facility] HGB 12.8 11.6 - 15.0 [facility] g/dL [facility] HCT 38.6 35.7 - 45.2 % [facility] MCV 86.0 80.6 - 95.5 fL [facility] MCH 28.5 25.9 - 32.8 pg [facility] MCHC 33.2 31.6 - 35.1 [facility] g/dL [facility] RDW-SD 39.1 39.0 - 49.9 fL [facility] RDW-CV 12.7 12.0 - 15.5 % [facility] PLT 207 166 - 358 [facility] 10*3/L [facility] MPV 11.0 9.5 - 12.9 fL [facility] NRBC/100 WBC 0.0 0.0 - 10.0 /100 [facility] WBCs [facility] NRBC x10^3 <0.01 10*3/L [facility] GRAN MAT (NEUT) % 76.3 % [facility] IMM GRAN % 0.50 % [facility] LYMPH % 13.3 % [facility] MONO % 7.5 % [facility] EOS % 1.8 % [facility] BASO % 0.6 % [facility] GRAN MAT x10^3(ANC) 6.38 1.88 - 7.09 [facility] 10*3/uL [facility] IMM GRAN x10^3 0.04 0.00 - 0.06 [facility] 10*3/uL [facility] LYMPH x10^3 1.11 (L) 1.32 - 3.29 [facility] 10*3/uL [facility] MONO x10^3 0.63 0.33 - 0.92 [facility] 10*3/uL [facility] EOS x10^3 0.15 0.03 - 0.39 [facility] 10*3/uL [facility] BASO x10^3 0.05 0.01 - 0.07 [facility] 10*3/uL [facility] Specimen Blood - VENOUS Performing Organization Address City/State/Zipcode Phone Number [facility] CLIA: [id number], [address] [place] [address] COMP. METABOLIC PANEL ([id number]) (04/15/2019 4:24 PM CDT) NA 129 (L) 135 - 145 [facility] mmol/L [facility] K 4.6 3.5 - 5.0 [facility] mmol/L [facility] CL 90 (L) 98 - 108 mmol/L [facility] CO2 TOTAL 14 (L) 23 - 31 mmol/L [facility] AGAP 25 (H) 2 - 16 [facility] BUN 21 7 - 23 mg/dL [facility] GLUCOSE >625 (HH) 70 - 110 mg/dL [facility] CREATININE 0.46 (L) 0.50 - 1.04 [facility] mg/dL [facility] TOTAL BILI 1.2 (H) 0.1 - 1.1 mg/dL [facility] CALCIUM 9.1 8.6 - 10.6 [facility] mg/dL [facility] T PROTEIN 7.1 6.3 - 8.2 g/dL [facility] ALBUMIN 4.2 3.5 - 5.0 g/dL [facility] ALK PHOS 96 34 - 122 U/L [facility] ALT(SGPT) 16 9 - 51 U/L [facility] AST(SGOT) 31 13 - 40 U/L [facility] eGFR Calculation 162.9 mL/min/1.73m2 [facility] (Non-[facility]ORY [place]ien) eGFR Calculation 197.5 mL/min/1.73m2 [facility] () [facility] Specimen Blood - VENOUS Narrative Performed At Association of Glomerular Filtration Rate (GFR) [facility] and Staging of Kidney Disease* + + +- + | GFR (mL/min/1.73 m2)| With Kidney Damage|Without Kidney Damage + + +- + |>90| Stage one| Normal + + +- + |60-89|S tage two| Decreased GFR + + +- + |30-59|S tage three| Stage three + + +- + |15-29|S tage four | Stage four + + +- + |<15 (or dialysis)|Stage five | Stage five + + +- + *Each stage assumes the associated GFR level has been in effect for at least three months.Stages 1 to 5, with or without kidney disease, indicate chronic kidney disease. Notes: Determination of stages one and two (with eGFR >59mL/min/1.73 m2) requires estimation of kidney damage for at least three months as defined by structural or functional abnormalities of the kidney, manifested by either: Pathological abnormalities or Markers of kidney damage (including abnormalities in the composition of the blood or urine or abnormalities in imaging tests). Performing Organization Address City/State/Zipcode Phone Number [facility] CLIA: [id number], [address] [place] [address] [facility] documented in this encounter Visit Diagnoses Diagnosis Hyperglycemia - Primary Other abnormal glucose documented in this encounter Administered Medications Medication Order MAR Action Action Date Dose Rate Site insulin regular human (HUMULIN R) injection 6 Units 6 Units, Slow IV Push, ONCE, 1 dose, 04/15/19 at 1715, STAT NaCl 0.9% (NS) IV infusion 1,000 mL at 999 mL/hr, Intravenous, ONCE, 1 dose, [place] 04/15/19 at 1715, [place] documented in this encounter Insurance Payer Benefit Plan / Subscriber ID Effective Dates Phone Address Type Group [employer] MEDICAID OF xxxxxxxxx 2019-Present [phone] [address] [place] [address] [place] [address] [employer] (Home) Street [phone] [place], [place] (Work) [id number] documented as of this encounter
[2019-04-22 18:11] LABS: Urine Bacteria LOADED /HPF (<20); Urine Culture Reflex Order REFLEXED
--- NOTE | 2019-04-22 18:17 | ER ---
Nurse's Notes [facility] Name: Cristina Wheeler Age: 28 yrs Sex: Female : 1990 Arrival Date: 04/22/2019 Time: 14:55 Bed 13 Private MD: Unknown, Unknown Diagnosis: Urinary tract infection, site not specified Presentation: 04/22 15:08 Presenting complaint: Significant other states: Suprapubic pain since yesterday. Denies aj1 fever. Denies vaginal discharge. Reports dysuria, urinary frequency. Transition of care: patient was not received from another setting of care. Onset of symptoms was April 21, 2019. Risk Assessment: Do you want to hurt yourself or someone else? Patient reports no desire to harm self or others. Initial Sepsis Screen: Does the patient meet any 2 criteria? HR > 90 bpm. No. Patient's initial sepsis screen is negative. Does the patient have a suspected source of infection? Yes: Dysuria/Frequency/Urgency/UTI. Care prior to arrival: None. 15:08 Method Of Arrival: Ambulatory aj1 15:08 Acuity: KM 4 aj1 15:17 Note Patient states that she took her Lantus this morning but didn't eat anything. aj1 Checked patient's blood sugar FSBS is 186 at this time. Patient was provided a turkey sandwich and instructed to eat to make sure her sugar does not drop. Instructed to notify staff if she starts to feel worse. Triage Assessment: 15:10 General: Appears in no apparent distress. uncomfortable, Behavior is calm, cooperative, aj1 appropriate for age. Pain: Complains of pain in suprapubic area Pain currently is 8 out of 10 on a pain scale. Neuro: Level of Consciousness is awake, alert, obeys commands. Cardiovascular: Patient's skin is warm and dry. Respiratory: Airway is patent Respiratory effort is even, unlabored, Respiratory pattern is regular, symmetrical. GI: Reports suprapubic pain. : Reports burning with urination, urinary frequency. 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 - Social history:: Smoking status: Patient/guardian denies using tobacco. - Ebola Screening: : Patient denies travel to an Ebola-affected area in the 21 days before illness onset. Screenin:05 Abuse screen: Denies threats or abuse. Nutritional screening: No deficits noted. rb1 Tuberculosis screening: No symptoms or risk factors identified. Fall Risk None identified. Assessment: 17:05 General: Appears in no apparent distress. comfortable, Behavior is calm, cooperative, rb1 Denies fever. Pain: Complains of pain in suprapubic area Pain currently is 5 out of 10 on a pain scale. Pain began 2-3 days ago. Neuro: Level of Consciousness is awake, alert, obeys commands, Oriented to person, place, time, situation. Cardiovascular: Capillary refill < 3 seconds is brisk in bilateral fingers. Respiratory: Airway is patent Respiratory effort is even, unlabored, Respiratory pattern is regular, symmetrical. GI: Bowel sounds present X 4 quads. Abd is soft X 4 quads. : Reports pain with urination. Derm: Skin is pink, warm \T\ dry. Musculoskeletal: Range of motion: intact in all extremities. 18:05 Reassessment: Patient appears in no apparent distress at this time. No changes from rb1 previously documented assessment. Vital Signs: 15:10 BP 97 / 62; Pulse 95; Resp 16; Temp 98.4; Pulse Ox 98% on R/A; Weight 54.43 kg (R); aj1 Height 4 ft. 10 in. (147.32 cm) (R); 17:00 BP 100 / 61; Pulse 79; Resp 16; Pulse Ox 99% on R/A; Pain 5/10; rb1 18:00 BP 102 / 64; Pulse 82; Resp 15; Temp 98.2(O); Pulse Ox 99% on R/A; Pain 5/10; rb1 15:10 Body Mass Index 25.08 (54.43 kg, 147.32 cm) aj ED Course: 14:55 Patient arrived in ED. ag5 14:55 Unknown, Unknown is Private Physician. ag5 15:09 Triage completed. aj1 15:12 Arm band placed on Patient placed in waiting room, Patient notified of wait time. aj1 15:23 [facility]C [facility] kb 15:23 Jesus Antunez MD is Attending Physician. kb 17:05 Patient has correct armband on for positive identification. Bed in low position. Call rb1 light in reach. Side rails up X 1. Pulse ox on. NIBP on. Warm blanket given. 17:09 Argelia Johnson, RN is Primary Nurse. rb1 18:51 No provider procedures requiring assistance completed. Patient did not have IV access rb1 during this emergency room visit. Administered Medications: 18:30 Drug: Cipro 500 mg Route: PO; rb1 Point of Care Testing: Blood Glucose: 15:12 Blood Glucose: 186 mg/dL; aj1 17:25 Blood Glucose: 257 mg/dL; rb1 Ranges: Outcome: 18:16 Discharge ordered by MD. kb 18:51 Discharged to home ambulatory. rb1 18:51 Condition: stable 18:51 Discharge instructions given to patient, Instructed on discharge instructions, follow up and referral plans. medication usage, Demonstrated understanding of instructions, follow-up care, medications, Prescriptions given X 1. 18:51 Patient left the ED. rb1 Addendum: 04/25/2019 07:54 Addendum: Culture Results: Positive urine culture. No further action required. Bacteria i w sensitive to prescribed antibiotic. Signatures: Romelia Mueller FNP-C FNP-Ckb Johnson, Angela, RN RN aj1 Hattie Camarillo RN RN iw Argelia Johnson, RN RN rb1 Carol Masters ag5
--- NOTE | 2019-04-22 18:18 | EDPHYS ---
Physician Documentation [facility] Name: Cristina Wheeler Age: 28 yrs Sex: Female : 1990 Arrival Date: 04/22/2019 Time: 14:55 Bed 13 Private MD: Unknown, Unknown ED Physician Jesus Antunez HPI: 04/22 18:05 This 28 yrs old Female presents to ER via Ambulatory with complaints of pain kb with urination. 18:05 The patient has not experienced similar symptoms in the past. The patient has not kb recently seen a physician. 18:06 The patient presents with urinary symptoms, dysuria, frequency. kb 18:06 Onset: The symptoms/episode began/occurred yesterday. Modifying factors: The symptoms kb are alleviated by nothing, the symptoms are aggravated by urinating. Associated signs and symptoms: Pertinent positives: dysuria, urinary frequency. Severity of symptoms: At their worst the symptoms were moderate, in the emergency department the symptoms are unchanged. 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 - Social history:: Smoking status: Patient/guardian denies using tobacco. - Ebola Screening: : Patient denies travel to an Ebola-affected area in the 21 days before illness onset. ROS: 18:03 Constitutional: Negative for fever, chills, and weight loss, Cardiovascular: Negative kb for chest pain, palpitations, and edema, Respiratory: Negative for shortness of breath, cough, wheezing, and pleuritic chest pain, Abdomen/GI: Negative for abdominal pain, nausea, vomiting, diarrhea, and constipation, Back: Negative for injury and pain, MS/Extremity: Negative for injury and deformity, Skin: Negative for injury, rash, and discoloration, Neuro: Negative for headache, weakness, numbness, tingling, and seizure. 18:03 : Positive for urinary symptoms, urinary frequency, burning with urination. Exam: 18:03 Constitutional: This is a well developed, well nourished patient who is awake, alert, kb and in no acute distress. Head/Face: Normocephalic, atraumatic. Chest/axilla: Normal chest wall appearance and motion. Nontender with no deformity. No lesions are appreciated. Cardiovascular: Regular rate and rhythm with a normal S1 and S2. No gallops, murmurs, or rubs. Normal PMI, no JVD. No pulse deficits. Respiratory: Lungs have equal breath sounds bilaterally, clear to auscultation and percussion. No rales, rhonchi or wheezes noted. No increased work of breathing, no retractions or nasal flaring. Skin: Warm, dry with normal turgor. Normal color with no rashes, no lesions, and no evidence of cellulitis. MS/ Extremity: Pulses equal, no cyanosis. Neurovascular intact. Full, normal range of motion. Neuro: Awake and alert, GCS 15, oriented to person, place, time, and situation. Cranial nerves II-XII grossly intact. Motor strength 5/5 in all extremities. Sensory grossly intact. Cerebellar exam normal. Normal gait. 18:03 Abdomen/GI: Inspection: abdomen appears normal, Bowel sounds: normal, in all quadrants, Palpation: soft, in all quadrants, mild abdominal tenderness, in the suprapubic area. Vital Signs: 15:10 BP 97 / 62; Pulse 95; Resp 16; Temp 98.4; Pulse Ox 98% on R/A; Weight 54.43 kg (R); aj1 Height 4 ft. 10 in. (147.32 cm) (R); 17:00 BP 100 / 61; Pulse 79; Resp 16; Pulse Ox 99% on R/A; Pain 5/10; rb1 18:00 BP 102 / 64; Pulse 82; Resp 15; Temp 98.2(O); Pulse Ox 99% on R/A; Pain 5/10; rb1 15:10 Body Mass Index 25.08 (54.43 kg, 147.32 cm) aj1 MDM: 17:01 Patient medically screened. kb 18:03 Data reviewed: vital signs, nurses notes. Data interpreted: Pulse oximetry: on room air kb is 98 %. Interpretation: normal. 18:15 Counseling: I had a detailed discussion with the patient and/or guardian regarding: the kb historical points, exam findings, and any diagnostic results supporting the discharge/admit diagnosis, lab results, the need for outpatient follow up, a family practitioner, to return to the emergency department if symptoms worsen or persist or if there are any questions or concerns that arise at home. 04/22 15:23 Order name: Urine Microscopic Only; Complete Time: 18:13 kb 04/22 17:20 Order name: Urine Dipstick--Ancillary (enter results) 04/22 17:20 Order name: Urine --Ancillary (enter results) 04/22 17:36 Order name: Glucose, Ancillary Testing; Complete Time: 17:38 EDWI 04/22 18:13 Order name: Urine Culture [facility] 04/22 15:23 Order name: Urine Test (obtain specimen); Complete Time: 18:07 kb 04/22 15:23 Order name: Urine Dipstick-Ancillary (obtain specimen); Complete Time: 18:07 kb 04/22 17:21 Order name: Blood Glucose Level; Complete Time: 17:29 kb Administered Medications: 18:30 Drug: Cipro 500 mg Route: PO; rb1 Point of Care Testing: Blood Glucose: 15:12 Blood Glucose: 186 mg/dL; aj1 17:25 Blood Glucose: 257 mg/dL; rb1 Ranges: Critical Glucose Levels:Adult <50 mg/dl or >400 mg/dl <40 mg/dl or >180 mg/dl Disposition: 18:55 Co-signature as Attending Physician, Jesus Antunez MD. rn Disposition: 04/22/19 18:16 Discharged to Home. Impression: Urinary tract infection, site not specified. - Condition is Stable. - Discharge Instructions: Urinary Tract Infection, Adult, [id number]. - Prescriptions for Cipro 500 mg Oral Tablet - take 1 tablet by ORAL route every 12 hours for 7 days; 14 tablet. - Medication Reconciliation Form, Thank You Letter, Antibiotic Education, Prescription Opioid Use form. - Follow up: Emergency Department; When: As needed; Reason: Worsening of condition. Follow up: Private Physician; When: 2 - 3 days; Reason: Recheck today's complaints, Continuance of care, Re-evaluation by your physician. Signatures: Dispatcher [employer] EDRomelia Sanchez FNP-C FNP-Fifi Bueno, RN RN aj1 Jesus Antunez MD MD rn Argelia Johnson RN RN rb1 Corrections: (The following items were deleted from the chart) 18:51 18:16 04/22/2019 18:16 Discharged to Home. Impression: Urinary tract infection, site rb1 not specified. Condition is Stable. Discharge Instructions: Urinary Tract Infection, Adult, [id number]. Prescriptions for Cipro 500 mg Oral Tablet - take 1 tablet by ORAL route every 12 hours for 7 days; 14 tablet. and Forms are Medication Reconciliation Form, Thank You Letter, Antibiotic Education, Prescription Opioid Use. Follow up: Emergency Department; When: As needed; Reason: Worsening of condition. Follow up: Private Physician; When: 2 - 3 days; Reason: Recheck today's complaints, Continuance of care, Re-evaluation by your physician. kb
[2019-04-22] MEDS ORDERED: CIPROFLOXACIN HCL 500 MG TAB ONE (18:28)
[2019-04-22 20:17] LABS: Urine Blood 2+ (NEG); Urine Glucose 2+ (NEG); Urine Protein 2+ (NEG)
[2019-04-22 22:11] VITALS: O2SAT 99
[2019-04-22 22:12] VITALS: BP 102/64; TEMP 98.2
== END 2019-04-22 18:51 | disposition home or self-care (01) ==
LOC: ER 14:53
DX: N39.0 Urinary tract infection, site not specified (principal); E11.40 Type 2 diabetes mellitus with diabetic neuropathy, unspecified; Z79.4 Long term (current) use of insulin; Z88.0 Allergy status to penicillin; Z88.2 Allergy status to sulfonamides; Z88.8 Allergy status to other drugs, medicaments and biological substances; Z91.018 Allergy to other foods
CPT/HCPCS: 81003; 81015; 81025; 82962; 87077; 87086; 87088; 87186; 99283

== ENCOUNTER 2019-04-28 06:42 | Emergency (ER) | payer OTHER ==
--- OUTSIDE RECORDS SUMMARY | 2019-04-28 06:45 | XMS REPORT | Clinical Summary ---
:1990 Author Organization [facility] Address [address] [place] [id number] Care Team Providers Name Role Phone Provider, [...] Not on file Results Not on fileafter 04/27/2018 Advance Directives For more information, please contact: [phone] Type Date Recorded Patient Certified Medical Biller Explanation Advance Directives, Living Will 11/15/2017 5:47 AM and Medical Power of Acupuncturist
--- OUTSIDE RECORDS SUMMARY | 2019-04-28 06:45 | XMS REPORT ---
:1990 [facility] Address [address] [place] [address] Care Team Providers Name Role Phone Unavailable [...]
[2019-04-28] MEDS ORDERED: MORPHINE 2 MG/ML SYR ONE (07:20)
[2019-04-28] MEDS ORDERED: ONDANSETRON 4 MG/2 ML VIAL ONE (07:20)
[2019-04-28 08:08] LABS: Protime INR 0.96
[2019-04-28 08:20] LABS: Absolute Lymphocytes (CBC) 1.7 K/uL (0.7-4.9); Basophils % 0.5 % (0-1.3); Hematocrit 40.2 % (36.0-45.0); Lymphocytes % 18.5 % (15.3-44.8); MPV 10.3 fL (7.6-11.3); RBC Red Blood Cell Count 4.73 M/uL (3.86-4.86)
[2019-04-28 08:23] LABS: ALT/SGPT 20 U/L (12-78); AST/SGOT 21 U/L (15-37); Albumin 3.6 g/dL (3.4-5.0); Alkaline Phosphatase 85 U/L (45-117); BUN Blood Urea Nitrogen 17 mg/dL (7-18); Bicarbonate 26 mmol/L (21-32); Bilirubin Direct < 0.1 mg/dL (0-0.2); Bilirubin Total 0.3 mg/dL (0.2-1.0); Glucose Level 71 mg/dL (74-106); Magnesium 1.9 mg/dL (1.8-2.4); Potassium 4.4 mmol/L (3.5-5.1); Protein, Total 7.4 g/dL (6.4-8.2); Sodium Level 142 mmol/L (136-145); Troponin (Emerg Dept Use Only) < 0.02 ng/mL (0.0-0.045)
[2019-04-28 09:25] LABS: Platelet Estimate ADEQ
[2019-04-28 09:26] LABS: Blood Morphology Comment NOT SEEN (NOT SEEN)
[2019-04-28 10:38] LABS: Urine Bacteria <20 /HPF (<20); Urine Culture Reflex Order NOT NEEDED; Urine RBC <5 /HPF (NONE SEEN)
[2019-04-28 11:10] LABS: Urine Blood 1+ (NEG); Urine Glucose 2+ (NEG); Urine Protein 1+ (NEG); Urine pH 5.5 (5.0-7.0)
--- NOTE | 2019-04-28 11:12 | RAD REPORT ---
EXAM DESCRIPTION: CT - Abdomen Pelvis W Contrast - 04/28/2019 10:51 am CLINICAL HISTORY: Abdominal pain with vomiting COMPARISON: none. TECHNIQUE: Computed axial tomography of the abdomen pelvis was obtained. 100 cc Isovue-300 was admin istered intravenously. Oral contrast was not requested which limits evaluation of bowel. All CT scans are performed using dose optimization technique as appropriate and may include automated exposure control or mA/KV adjustment according to patient size. FINDINGS: The liver, spleen, pancreas, and adrenals appear unremarkable. Right renal cortical thinning perhaps secondary prior inflammation. 2.5 centimeter left renal cyst There is no evidence of diverticulitis. Normal appendix 15 millimeter involuting right ovarian follicle Fluid within nondilated small bowel. Moderate amount of stool within the colon IMPRESSION: Fluid within nondilated small bowel may indicate an enteritis
--- NOTE | 2019-04-28 11:13 | RAD REPORT ---
EXAM DESCRIPTION: Rafael Single View04/28/2019 8:16 am CLINICAL HISTORY: Chest pain COMPARISON: February 2019 FINDINGS: The lungs appear clear of acute infiltrate. The heart is normal size IMPRESSION: No acute abnormalities displayed
--- NOTE | 2019-04-28 12:14 | EDPHYS ---
Physician Documentation [facility] Name: Cristina Wheeler Age: 28 yrs Sex: Female : 1990 Arrival Date: 04/28/2019 Time: 06:45 Bed 19 Private MD: ED Physician Neymar Lee HPI: 04/28 07:29 This 28 yrs old Female presents to ER via Ambulatory with complaints of pm1 Vomiting, Abdominal Pain. 07:29 The patient presents to the emergency department with vomiting, abdominal pain. Onset: pm1 The symptoms/episode began/occurred yesterday. Possible causes: unknown. The symptoms are aggravated by nothing. The symptoms are alleviated by nothing. Associated signs and symptoms: Pertinent positives: abdominal pain, vomiting, Pertinent negatives: diarrhea, dysuria, fever. Severity of symptoms: in the emergency department the symptoms are worse. The patient has been recently seen by a physician: The patient has been recently seen at the [facility] Emergency Department, 6 days ago and was diagnosed with UTI. Did not fill her prescription of cipro, but urinary symptoms have resolved with the use of cranberry juice. Historical: - Allergies: 07:08 flu medication; hb 07:08 PENICILLINS; hb 07:08 Spinach; hb 07:08 Sulfa (Sulfonamide Antibiotics); hb - Home Meds: 07:08 Humalog Sub-Q [Active]; Lantus 15 units Sub-Q twice a day [Active]; hb - PMHx: 07:08 Arthritis; Diabetes - IDDM; neuropathy; hb - Immunization history:: Adult Immunizations up to date. - Social history:: Smoking status: Patient/guardian denies using tobacco. - Ebola Screening: : No symptoms or risks identified at this time. ROS: 07:29 Constitutional: Negative for fever, chills, and weight loss, Eyes: Negative for injury, pm1 pain, redness, and discharge, ENT: Negative for injury, pain, and discharge, Neck: Negative for injury, pain, and swelling, Cardiovascular: Negative for chest pain, palpitations, and edema, Respiratory: Negative for shortness of breath, cough, wheezing, and pleuritic chest pain. 07:29 Back: Negative for injury and pain, : Negative for injury, bleeding, discharge, and swelling, MS/Extremity: Negative for injury and deformity, Skin: Negative for injury, rash, and discoloration, Neuro: Negative for headache, weakness, numbness, tingling, and seizure. 07:29 Abdomen/GI: Positive for abdominal pain, nausea and vomiting, Negative for diarrhea, constipation. Exam: 07:29 Constitutional: This is a well developed, well nourished patient who is awake, alert, pm1 and in no acute distress. Head/Face: Normocephalic, atraumatic. Eyes: Pupils equal round and reactive to light, extra-ocular motions intact. Lids and lashes normal. Conjunctiva and sclera are non-icteric and not injected. Cornea within normal limits. Periorbital areas with no swelling, redness, or edema. ENT: Nares patent. No nasal discharge, no septal abnormalities noted. Tympanic membranes are normal and external auditory canals are clear. Oropharynx with no redness, swelling, or masses, exudates, or evidence of obstruction, uvula midline. Mucous membranes moist. Neck: Trachea midline, no thyromegaly or masses palpated, and no cervical lymphadenopathy. Supple, full range of motion without nuchal rigidity, or vertebral point tenderness. No Meningismus. Chest/axilla: Normal chest wall appearance and motion. Nontender with no deformity. No lesions are appreciated. Cardiovascular: Regular rate and rhythm with a normal S1 and S2. No gallops, murmurs, or rubs. Normal PMI, no JVD. No pulse deficits. Respiratory: Lungs have equal breath sounds bilaterally, clear to auscultation and percussion. No rales, rhonchi or wheezes noted. No increased work of breathing, no retractions or nasal flaring. Abdomen/GI: Soft, non-tender, with normal bowel sounds. No distension or tympany. No guarding or rebound. No evidence of tenderness throughout. Back: No spinal tenderness. No costovertebral tenderness. Full range of motion. Skin: Warm, dry with normal turgor. Normal color with no rashes, no lesions, and no evidence of cellulitis. MS/ Extremity: Pulses equal, no cyanosis. Neurovascular intact. Full, normal range of motion. 07:29 Neuro: Orientation: is normal, Motor: is normal, moves all fours. Vital Signs: 07:06 BP 120 / 81; Pulse 97; Resp 16; Temp 97.8; Pulse Ox 100% on R/A; Weight 54.43 kg; hb Height 4 ft. 10 in. (147.32 cm); Pain 5/10; 08:01 BP 115 / 75; Pulse 84; Resp 18; Pulse Ox 97% on R/A; Pain 5/10; em 10:38 BP 112 / 84; Pulse 89; Resp 18; Pulse Ox 98% on R/A; Pain 0/10; em 11:30 BP 110 / 75; Pulse 87; Resp 18; Pulse Ox 99% on R/A; Pain 0/10; em 07:06 Body Mass Index 25.08 (54.43 kg, 147.32 cm) hb MDM: 07:07 Patient medically screened. pm1 11:36 Data reviewed: vital signs. Data interpreted: Pulse oximetry: on room air is 98 %. pm1 Interpretation: normal. Counseling: I had a detailed discussion with the patient and/or guardian regarding: the historical points, exam findings, and any diagnostic results supporting the discharge/admit diagnosis, lab results, radiology results, the need for outpatient follow up, to return to the emergency department if symptoms worsen or persist or if there are any questions or concerns that arise at home. 04/28 07:15 Order name: Basic Metabolic Panel; Complete Time: 08:26 pm04/28 07:15 Order name: CBC with Diff; Complete Time: 09:34 pm04/28 07:15 Order name: LFT's; Complete Time: 08:26 pm04/28 07:15 Order name: Magnesium; Complete Time: 08:26 pm04/28 07:15 Order name: PT-INR; Complete Time: 08:22 pm04/28 07:15 Order name: Troponin (emerg Dept Use Only); Complete Time: 08:26 pm04/28 07:15 Order name: XRAY Chest (1 view); Complete Time: 11:35 pm1 04/28 07:15 Order name: CT Abd/Pelvis - IV Contrast Only; Complete Time: 11:35 pm1 04/28 07:53 Order name: Urine Dipstick--Ancillary (enter results); Complete Time: 11:35 eb 04/28 07:53 Order name: Urine --Ancillary (enter results); Complete Time: 11:35 eb 04/28 09:23 Order name: Urine Microscopic Only; Complete Time: 10:50 em 04/28 09:26 Order name: Manual Differential; Complete Time: 09:34 EDMS 04/28 07:15 Order name: EKG; Complete Time: 07:17 pm1 04/28 07:15 Order name: Cardiac monitoring; Complete Time: 07:58 pm1 04/28 07:15 Order name: EKG - Nurse/Tech; Complete Time: 07:58 pm1 04/28 07:15 Order name: IV Saline Lock; Complete Time: 07:58 pm1 04/28 07:15 Order name: Labs collected and sent; Complete Time: 07:58 pm1 04/28 07:15 Order name: O2 Per Protocol; Complete Time: 07:58 pm1 04/28 07:15 Order name: O2 Sat Monitoring; Complete Time: 07:58 pm1 04/28 07:15 Order name: Urine Test (obtain specimen); Complete Time: 07:57 pm1 04/28 07:15 Order name: Urine Dipstick-Ancillary (obtain specimen); Complete Time: 07:57 pm1 Administered Medications: 07:40 Drug: Zofran 4 mg Route: IVP; Site: right antecubital; sg 10:05 Follow up: Response: No adverse reaction; Pain is decreased; Nausea is decreased em 11:43 Not Given (Patient Refused): morphine 2 mg IVP once; RASS on ADMIN: Combtv4, Very em Agttd3, Agttd2, Rstlss1, AlertClm0, Drwsy-1, Lt Sdtn-2, Mod Sdtn-3, Dp Sdtn-4, UnArsble-5 Disposition: 04/28/19 11:38 Discharged to Home. Impression: Unspecified abdominal pain, Vomiting. - Condition is Stable. - Discharge Instructions: Abdominal Pain, Adult, Viral Gastroenteritis, Adult. - Prescriptions for Bentyl 20 mg Oral Tablet - take 1 tablet by ORAL route every 6 hours As needed; 20 tablet. Zofran 4 mg Oral Tablet - take 1 tablet by ORAL route every 12 hours As needed; 20 tablet. - Medication Reconciliation Form, Thank You Letter, Antibiotic Education, Prescription Opioid Use form. - Follow up: Emergency Department; When: As needed; Reason: Worsening of condition. Follow up: Private Physician; When: 2 - 3 days; Reason: Recheck today's complaints, Continuance of care, Re-evaluation by your physician. - Problem is new. - Symptoms have improved. Addendum: 04/30/2019 09:52 Co-signature as Attending Physician, Neymar Lee MD I agree with the assessment and k dr plan of care. Signatures: Dispatcher [employer] Rene Acuna, RN RN Neymar Lee MD MD [facility] [address] Thomas, BALLET DANCER BALLET DANCER em Jason Oneal, TRUCK CATERER TRUCK CATERER pm1 Jolene Owusu RN RN Corrections: (The following items were deleted from the chart) 04/28 12:13 11:38 04/28/2019 11:38 Discharged to Home. Impression: Unspecified abdominal em painVomiting. Condition is Stable. Forms are Medication Reconciliation Form, Thank You Letter, Antibiotic Education, Prescription Opioid Use. Follow up: Emergency Department; When: As needed; Reason: Worsening of condition. Follow up: Private Physician; When: 2 - 3 days; Reason: Recheck today's complaints, Continuance of care, Re-evaluation by your physician. Problem is new. Symptoms have improved. pm1
--- NOTE | 2019-04-28 12:14 | ER ---
Nurse's Notes [facility] Name: Cristina Wheeler Age: 28 yrs Sex: Female : 1990 Arrival Date: 04/28/2019 Time: 06:45 Bed 19 Private MD: Diagnosis: Vomiting;Unspecified abdominal pain Presentation: 04/28 07:05 Presenting complaint: N/V and abdominal pain since last night. Transition of care: hb patient was not received from another setting of care. Onset of symptoms was April 27, 2019. Risk Assessment: Do you want to hurt yourself or someone else? Patient reports no desire to harm self or others. Initial Sepsis Screen: Does the patient meet any 2 criteria? No. Patient's initial sepsis screen is negative. Does the patient have a suspected source of infection? No. Patient's initial sepsis screen is negative. Care prior to arrival: None. 07:05 Method Of Arrival: Ambulatory hb 07:05 Acuity: KM 3 hb Historical: - Allergies: 07:08 flu medication; hb 07:08 PENICILLINS; hb 07:08 Spinach; hb 07:08 Sulfa (Sulfonamide Antibiotics); hb - Home Meds: 07:08 Humalog Sub-Q [Active]; Lantus 15 units Sub-Q twice a day [Active]; hb - PMHx: 07:08 Arthritis; Diabetes - IDDM; neuropathy; hb - Immunization history:: Adult Immunizations up to date. - Social history:: Smoking status: Patient/guardian denies using tobacco. - Ebola Screening: : No symptoms or risks identified at this time. Screenin:11 Abuse screen: Denies threats or abuse. Nutritional screening: No deficits noted. em Tuberculosis screening: No symptoms or risk factors identified. Fall Risk None identified. Assessment: 07:30 General: Appears in no apparent distress. comfortable, Behavior is calm, cooperative, em Denies fever. Pain: Complains of pain in chest and abdomen Pain currently is 5 out of 10 on a pain scale. Quality of pain is described as crampy, Pain began 2 hours ago. Neuro: Level of Consciousness is awake, alert, obeys commands, Oriented to person, place, time, situation, Appropriate for age. Cardiovascular: Capillary refill < 3 seconds Patient's skin is warm and dry. Rhythm is sinus rhythm. Respiratory: Airway is patent Respiratory effort is even, unlabored, Respiratory pattern is regular, symmetrical, Breath sounds are clear bilaterally. GI: Abdomen is flat, Bowel sounds present X 4 quads. Abd is soft X 4 quads Abdomen is tender to palpation in abdomen diffusely Reports nausea, vomiting. : Denies burning with urination. EENT: Oral mucosa is moist. Throat is clear is pink. Derm: Skin is intact, is healthy with good turgor, Skin is pink, warm \T\ dry. Musculoskeletal: Capillary refill < 3 seconds, Range of motion: intact in all extremities. 07:42 Reassessment: I agree with previous assessment. hb 08:30 Reassessment: Patient appears in no apparent distress at this time. Patient and/or em family updated on plan of care and expected duration. Pain level reassessed. Patient is alert, oriented x 3, equal unlabored respirations, skin warm/dry/pink. 10:38 Reassessment: Patient appears in no apparent distress at this time. Patient and/or em family updated on plan of care and expected duration. Pain level reassessed. Patient is alert, oriented x 3, equal unlabored respirations, skin warm/dry/pink. Patient denies pain at this time. Patient states feeling better. Patient states symptoms have improved. 11:30 Reassessment: Patient appears in no apparent distress at this time. Patient and/or em family updated on plan of care and expected duration. Pain level reassessed. Patient is alert, oriented x 3, equal unlabored respirations, skin warm/dry/pink. Patient denies pain at this time. Patient states feeling better. Patient states symptoms have improved. Vital Signs: 07:06 BP 120 / 81; Pulse 97; Resp 16; Temp 97.8; Pulse Ox 100% on R/A; Weight 54.43 kg; hb Height 4 ft. 10 in. (147.32 cm); Pain 5/10; 08:01 BP 115 / 75; Pulse 84; Resp 18; Pulse Ox 97% on R/A; Pain 5/10; em 10:38 BP 112 / 84; Pulse 89; Resp 18; Pulse Ox 98% on R/A; Pain 0/10; em 11:30 BP 110 / 75; Pulse 87; Resp 18; Pulse Ox 99% on R/A; Pain 0/10; em 07:06 Body Mass Index 25.08 (54.43 kg, 147.32 cm) ED Course: 06:45 Patient arrived in ED. ag3 07:06 Triage completed. hb 07:06 Jason Oneal NP is PHCP. pm1 07:06 Niko Leon MD is Attending Physician. pm1 07:07 Arm band placed on. hb 07:11 Lane Thomas LVN is Primary Nurse. em 07:11 Patient has correct armband on for positive identification. Placed in gown. Bed in low em position. Call light in reach. Adult w/ patient. Pulse ox on. NIBP on. 07:40 Initial lab(s) drawn, by me, sent to lab. Inserted saline lock: 22 gauge in right em antecubital area, using aseptic technique. Blood collected. 08:17 XRAY Chest (1 view) In Process Unspecified. EDMS 10:53 CT Abd/Pelvis - IV Contrast Only In Process Unspecified. EDMS 11:42 Neymar Lee MD is Attending Physician. pm1 12:11 No provider procedures requiring assistance completed. IV discontinued, intact, em bleeding controlled, No redness/swelling at site. Pressure dressing applied. Administered Medications: 07:40 Drug: Zofran 4 mg Route: IVP; Site: right antecubital; sg 10:05 Follow up: Response: No adverse reaction; Pain is decreased; Nausea is decreased em 11:43 Not Given (Patient Refused): morphine 2 mg IVP once; RASS on ADMIN: Combtv4, Very em Agttd3, Agttd2, Rstlss1, AlertClm0, Drwsy-1, Lt Sdtn-2, Mod Sdtn-3, Dp Sdtn-4, UnArsble-5 Outcome: 11:38 Discharge ordered by MD. pm1 12:11 Discharged to home ambulatory, with family. em 12:11 Condition: good 12:11 Discharge instructions given to patient, family, Instructed on discharge instructions, follow up and referral plans. medication usage, Demonstrated understanding of instructions, follow-up care, medications, Prescriptions given X 2. 12:13 Patient left the ED. em Signatures: Dispatcher [employer] EDMS Rene Linares RN RN Lane Thomas, QA CONSULTANT QA CONSULTANT em Jason Oneal, PHYSICIAN NON INVASIVE CARDIOLOGIST PHYSICIAN NON INVASIVE CARDIOLOGIST pm1 Jolene Owusu RN RN Ayse Tracy ag3 Corrections: (The following items were deleted from the chart) 07:58 07:40 morphine 2 mg IVP in right antecubital sg sg
[2019-04-28 12:59] VITALS: TEMP 97.8
[2019-04-28 13:04] VITALS: BP 110/75; O2SAT 99
--- NOTE | 2019-04-29 18:25 | EKG ---
Test Date: 2019-04-28 Test Time: 07:25:40 Stereotyper Helper: FAN MEASUREMENT RESULTS: Intervals: Rate: 88 VA: 124 QRSD: 80 QT: 354 QTc: 428 [place]: P: 33 VA: 124 QRS: 69 T: -9 INTERPRETIVE STATEMENTS: Normal sinus rhythm Anterior infarct, age undetermined Abnormal ECG Compared to ECG 03/01/2019 23:20:10 Myocardial infarct finding now present Sinus tachycardia no longer present Atrial abnormality no longer present Electronically Signed On 04-29-19 18:22:58 CDT by Leodan Arboleda
== END 2019-04-28 12:13 | disposition home or self-care (01) ==
LOC: ER 06:42
DX: R11.2 Nausea with vomiting, unspecified (principal); E11.40 Type 2 diabetes mellitus with diabetic neuropathy, unspecified; Z79.4 Long term (current) use of insulin; Z88.0 Allergy status to penicillin; Z88.2 Allergy status to sulfonamides; Z88.8 Allergy status to other drugs, medicaments and biological substances; Z91.018 Allergy to other foods
CPT/HCPCS: 93005; 85025; 80048; 36415; 83735; 81025; 85610; 80076; 84484; 74177; 71045; 96374; 99284; Q9967; J2270; J2405; 81003; 81015

== ENCOUNTER 2019-08-08 02:33 | Emergency (ER) | payer OTHER ==
--- OUTSIDE RECORDS SUMMARY | 2019-08-08 02:34 | XMS REPORT ---
:1990 [facility] Address [address] [place] [address] Care Team Providers Name Role Phone Unavailable [...] 03-21 00:00: 00 spinach DA Active MO 2017-0 8 00:00: 00 MUSHROOMS DA Active MO 10-09 00:00: 00 Medications This patient has no known medications.
--- OUTSIDE RECORDS SUMMARY | 2019-08-08 02:35 | XMS REPORT | Continuity of Care Document ---
:1990 Author Organization [facility] Address [address] [place] [address] Allergies, Adverse Reactions, Alerts Allergen Type Severity Reaction Last Updated Verified Status Sulfa Antibiotics Allergy Unknown May 31, 2019 Yes Active ([id number]) Medications Medication Status Dose Units Route Sig Qty Days Start End Date Instructions Date Gabapentin Active 600 ORAL Three Times A Day as needed for Pain Gabapentin Discontinue 1 ORAL Three 90 May d Times A , , Day for 2018 2018 Neuropat 5:23pm hy Insulin Discontinued 1 SUBCUTANEOUS Sliding Scale May 31, moderate SS Insulin for 2018 4:25pm Diabetes (One-Time) 151-200: 3 units 201-250: 5 units 251-300: 7 units 301-350: 10 u 351-400: 12 u > 400: 14 u Insulin Discontinued 20 SUBCUTANEOUS Once Daily 7.5 May Glargine * At Bedtime 2018 for Dm2 5:23pm Insulin Nph Discontinued 15 SUBCUTANEOUS Twice A Day May 31 , (Human) for Diabetes 2019 4:18pm (Isophane) (One-Time) Icu: Insulin Discontinued Sliding Scale May 31, Regular Drip Insulin 2018 Insulin Discontinued Sliding Scale May 31, Insulin 2018 Insulin Nph Discontinued 15 SUBCUTANEOUS Twice A Day May 31 , (Human) 2018 (Isophane) Problems No problem information available. Procedures No procedure information available. Relevant Diagnostic Tests and/or Laboratory Data Laboratory Results Test Date/Time Result Interpretation Reference Result Performing Range Comment Site White Blood May 8.3 4.0-11.5 [facility], [address] 2018 4:45am [facility] [address] Red Blood Count May 4.26 3.80-5.20 [facility], 104 2018 4:45am [facility] [address] Hemoglobin May 12.3 10.5-15.7 [facility], 104 2018 4:45am [facility] [address]26[address] Hematocrit October 36.6 34.0-50.0 [facility], 104 [facility] 2018 4:[address] [place] [address] Mean Corpuscular October 85.9 86-100 [facility], [address] [facility] Volume 2018 4:[address] [place] [address] Mean Corpuscular October 28.9 26.2-33.4 [facility], 104 [facility] Hemoglobin 2018 4:[address] [place], [place] [id number] Mean Corpuscular October 33.6 30-34 [facility], 104 [facility] Hemoglobin 2018 Concent 4:[address] [place] [address]49 Red Cell May 13.4 12.0-15.5 [facility], 104 [facility] Distribution 2018 Width 4:[address] [place] [address]99 Platelet Count May 241 165-450 [facility], 104 [facility] 2018 4:[address] [place], [place] [id number] Mean Platelet October 10.6 9.4-12.6 [facility], 104 [facility] Volume 2018 4:[address] [place] [address] Neutrophils (%) May 65.2 44.4-80.1 [facility], 104 [facility] (Auto) 2018 4:[address] [place], [place] [id number] Immature October 0.1 0.0-0.4 [facility], 104 [facility] Granulocyte % 2018 (Auto) 4:[address] [place] [address] Lymphocytes (%) May 19.8 10.0-50.0 [facility], 104 [facility] (Auto) 2018 4:[address] [place], [place] [id number] Monocytes (%) May 7.6 3.6-12.0 [facility], 104 [facility] (Auto) 2018 4:[address] [place] [address] Eosinophils (%) May 6.5 0.0-5.4 [facility], [address] [facility] (Auto) 2018 4:[address] [place] [address] Basophils (%) May 0.8 0.1-1.2 [facility], 104 [facility] (Auto) 2018 4:[address] [place], [place] [id number] Neutrophils # October 5.42 1.56-6.13 [facility], 104 [facility] (Auto) 2018 4:[address] [place], [place] [id number] Absolute October 0.0 0.0-0.03 [facility], [address] [place] [address] Immature 2018 Granulocyte 4:45[facility] [address] (auto Lymphocytes # October 1.7 1.18-3.74 [facility], [address] [place] [address] (Auto) 2018 4:45[facility] [address] Monocytes # October 0.63 0.24-0.86 [facility], [address] [place] [address] (Auto) 2018 4:[address] [place] [address] Eosinophils # October 0.54 0.04-0.36 [facility], [address] [place] [address] (Auto) 2018 4:[address] [place] [address] Basophils # October 0.07 0.01-0.08 [facility], [address] [place] [address] (Auto) 2018 4:[address] [place], [place] [id number] Nucleated Red October 0 0-0.2 [facility], [address] [place] [address] Blood Cells % 2018 4:[address] [place] [id number] Nucleated Red October 0 0 [facility], [address] [place] [address] Blood Cells # 2018 4:45[place] [id number] Urine Color May [facility] 2018 2:10pm [place] [id number] Urine Appearance May CLEAR CLEAR [facility], [address] [place] [address] 2018 2:10pm [place] [id number] Urine Glucose May 4+ (1000 NEGATIVE [facility], [address] [place] [address] (UA) 2018 mg/dL) 2:10pm [place] [id number] Urine Bilirubin May NEGATIVE NEGATIVE [facility], [address] [place] [address] 2018 2:10pm [place] [id number] Urine Ketones October TRACE NEGATIVE [facility], [address] [place] [address] 2018 2:10pm [place] [id number] Urine Specific October 1.022 1.003-1.03 [facility], [address] [place] [address] [place] 2018 0 2:10pm [facility] [address] Urine Blood October TRACE NEGATIVE [facility], [address] [place] [address] 2018 2:10pm [place] [id number] Urine pH May 5.500 5-9 [facility], [address] [place] [address] 2018 2:10pm [place] [id number] Urine Protein October NEGATIVE NEGATIVE [facility], [address] [place] [address] 2018 2:10pm [place] [id number] Urine October NORMAL 0.2-1.0 [facility], [address] [place] [address] Urobilinogen 2018 2:10pm [facility] [address]22[address] Urine Nitrate May NEGATIVE NEGATIVE [facility], 104 2018 2:10pm [place] [address] Urine Leukocyte May NEGATIVE NEGATIVE [facility], 104 Esterase 2018 2:10pm [facility] 69479 Urine RBC May 1-5 0-5 [facility], 104 2018 2:10pm [facility] [address]37 Urine WBC May 6-10 0-5 [facility], 104 2018 2:10pm [place] [address] Urine Epithelial May 1-5 0-5 [facility], 104 Cells 2018 2:10pm [facility] [address] Urine Bacteria May TRACE None [facility], 104 2018 Detect 2:10pm [facility] [address] Urine Casts May None None [facility], 104 2018 Detected Detect 2:10pm [facility] [address]6985 Urine Culture May NO [facility], 104 Reflexed 2018 2:10pm [facility] [address]139 POC Capillary May 359 70.0 - 110 [facility], 104 Blood Glucose 2018 (Chem) 4:38pm [facility] 60093 Lactic Acid May 2.03 0.5-2.2 Results have [facility], 104 [facility] Level 2018 been 4:45am broadcasted [facility] [address] to patient's location and called to (Dylan BROWN). By KEIRA ENRIQUE 05/31/19 @0522Results read back for confirmation. Random Glucose May 533 74-106 Results have [facility], 104 2018 been 4:45am broadcasted [facility] [address] to patient's location and called to (STEPHANIE). By KEIRA ENRIQUE 05/31/19 @0518Results read back for confirmation. Blood Urea May 25 6-20 [facility], 104 Nitrogen 2018 4:45am [place] [address] Serum Osmolality May 295 280-300 [facility], 104 2018 4:45am [facility] [address]324 Creatinine May 0.5 0.50-0.90 [facility], 104 2018 4:45am [facility] [address] Glomerular October > 60.00 GFR RESULTS [facility], Filtration Rate 2018 ARE REPORTED Calc 4:45am IN [facility] 28204 mL/min/1.73m2 .Normal GFR: >60mL/minMode rately decreased GFR: 30-59 mL/minSeverel y decreased GFR: 15-29 mL/minKidney Failure (or Dialysis): <15 mL/minThe calculated eGFR is not valid for patients younger than 18 years or older than 75 years. BUN/Creatinine May 50.0 - [facility], 2018 4:[address] [place] [address] Sodium Level May 133 135-145 [facility], 2018 4:[address] [place] [address] Potassium Level May 4.2 3.5-5.2 [facility], 2018 4:[address] [place] [address] Chloride Level May 96 98-108 [facility], 2018 4:[address] [place] [address] Carbon Dioxide May 21 21-32 [facility], Level 2018 4:[address] [place] [address] Anion Gap May 20.2 08-03 [facility], 2018 4:[address] [place] [address] Calcium Level May 9.3 8.6-10.0 [facility], 2018 4:[address] [place] [address] Magnesium Level May 1.9 1.6-2.6 [facility], 2018 4:[address] [place] [address] Total Protein May 6.9 6.6-8.7 [facility], 2018 4:[address] [place] [address] Albumin May 4.1 3.5-5.2 [facility], 2018 4:[address] [place] [address] Globulin October 2.8 [facility], 2018 4:[address] [place] [address] Albumin/Globulin May 1.5 >1.0 [facility], Ratio 2018 4:[address] [place] [address] Total Bilirubin May 0.3 0.0-1.2 [facility], 2018 4:[address] [place] [address] Aspartate Amino May 6 15-32 [facility], [address] Transf 2018 (AST/SGOT) 4:45am [facility] [address] Alanine May 9 0-33 [facility], [address] Aminotransferase 2018 (ALT/SGPT) 4:45am [facility] 25396 Lipase May 41 13-60 [facility], [address] 2018 4:45am [facility] [address] Acetone Level October POSITIVE NEGATIVE [facility], [address] 2018 4:45am [facility] [address]78 Total Alkaline May 94 35-105 [facility], [address] Phosphatase 2018 4:45am [facility] 89707 Serum May NEGATIVE NEG If a negative [facility], [address] Test, 2018 result is Qualitative 4:45am obtained but [facility] [address] is suspected, a new specimen should be collected after 48-72 hours and tested. If waiting 48 hrs is not medically advisable, the test result should be confirmed with at quantitative hCG assay. Health Concerns No known health concerns documented Advance Directives Advance Directive Response Recorded Date/Time Advance Directive on File No May 31, 2019 9:12am Patient/Family Given Education Material R/T No May 31, 2019 9:12am Directives? Chief Complaint and Reason for Visit Chief Complaint DKA Reason for Visit DKA (diabetic ketoacidoses) Encounters Encounter Location(s) Arrival/Admit Date Discharge/Depart Date Provider(s) Discharged Reeves May 31, 2019 May 31, 2019 LAN MERCER Inpatient (obs) [facility] 6:51am 5:28pm [facility] Recent Diagnosis Onset Date DKA (diabetic ketoacidoses) Assessments Diagnosis Onset Date Resolution Status DKA (diabetic ketoacidoses) Resolved Functional Status No Functional Status information available Goals No Goals Information Available Immunizations No Immunization Information Available Mental Status No Mental Status Information Available Medical Equipment No Medical Equipment Information available Insurance Providers Guarantor Yas Lee Address [address] [facility] [address] [facility] [address] Contact Info. Home Phone: Payer Policy Id Coverage Id Subscriber's Subscriber Effective Expiration Name Id Date Date [employer] [id number] Summer [id number] Lucinda Madsen Plan of Treatment Future Tests Future scheduled test information is unavailable Pending Tests Pending diagnostic test information is unavailable Future Visits Future appointment information is unavailable Referrals to Other Providers Referral information is unavailable Future Procedures Future procedure information is unavailable Future Medications Future medication information is unavailable Patient Instructions Diabetic Ketoacidosis Social History Smoking Status Status Date of Observation Smokes tobacco daily (finding) May 31, 2019 9:12am Observation Status Observation Response Date of Response Hx Physical Abuse No May 31, 2019 9:00am Assigned Sex Female Vital Signs Vital Reading Result Collection Date/Time Hospital Discharge Instructions Additional Instructions Instructions Physician Documentation Coleman follow up instructions * If you have any questions or concerns, please contact [phone] and ask for the hospitalist on duty. If you are having a medical emergency, please report to the nearest emergency room in your area. * Access your patient portal or follow up with your PCP regarding any procedures or tests that have not yet been resulted. Follow up with: PCP Follow up appointment in: 3 days Activity on discharge: as tolerated Diet on discharge: diabetic Condition on discharge: stable
[2019-08-08 03:40] LABS: Urine Blood 2+ (NEG); Urine Glucose 2+ (NEG); Urine Protein 1+ (NEG); Urine pH 5.5 (5.0-7.0)
[2019-08-08 03:42] LABS: Urine Appearance CLEAR; Urine Bilirubin NEGATIVE (NEG); Urine Blood 2+ (NEG); Urine Color YELLOW; Urine Glucose 3+ (NEG); Urine Protein TRACE (NEG); Urine Specific Gravity >=1.030 (1.005-1.030)
[2019-08-08 03:47] LABS: Barbiturates NEGATIVE (NEGATIVE); Benzodiazepines NEGATIVE (NEGATIVE); Cocaine NEGATIVE (NEGATIVE); METHAMPHETAM NEGATIVE (NEGATIVE); Methadone NEGATIVE (NEGATIVE); Opiates NEGATIVE (NEGATIVE); Phencyclidine NEGATIVE (NEGATIVE); THC Cannibis NEGATIVE (NEGATIVE)
[2019-08-08] MEDS ORDERED: ONDANSETRON 4 MG/2 ML VIAL ONE (04:07)
[2019-08-08] MEDS ORDERED: NA CHLORIDE 0.9% 0 ML ONE (04:07)
[2019-08-08] MEDS ORDERED: MORPHINE 2 MG/ML SYR ONE (04:07)
[2019-08-08 04:15] LABS: Urine Microscopic Reflex ORDER UMIC
--- NOTE | 2019-08-08 04:29 | ER ---
Nurse's Notes [facility] Name: Cristina Wheeler Age: 29 yrs Sex: Female : 1990 Arrival Date: 08/08/2019 Time: 02:33 Bed 5 Private MD: Diagnosis: Abdominal pain Presentation: 08/08 02:55 Presenting complaint: Patient states: abdominal pain and chest pain that started 4 days wh ago got worse today. Transition of care: patient was not received from another setting of care. Onset of symptoms was August 08, 2019. Risk Assessment: Do you want to hurt yourself or someone else? Patient reports no desire to harm self or others. Initial Sepsis Screen: Does the patient meet any 2 criteria? HR > 90 bpm. Does the patient have a suspected source of infection? Yes: Acute abdominal pain. Care prior to arrival: None. 02:55 Method Of Arrival: Wheelchair 02:55 Acuity: KM 3 WIRE TESTER: 02:57 LMP 07/2019 Historical: - Allergies: 02:57 flu medication; 02:57 PENICILLINS; 02:57 Spinach; 02:57 Sulfa (Sulfonamide Antibiotics); - Home Meds: 02:57 Humalog Sub-Q [Active]; Lantus Sub-Q [Active]; - PMHx: 02:57 Arthritis; Diabetes - IDDM; neuropathy; - PSHx: 02:57 Ankle SUrgery; - Immunization history:: Adult Immunizations not up to date. - Social history:: Smoking status: Patient/guardian denies using tobacco, Patient uses Vape. - Ebola Screening: : Patient negative for fever greater than or equal to 101.5 degrees Fahrenheit, and additional compatible Ebola Virus Disease symptoms Patient denies exposure to infectious person. Screenin:58 Abuse screen: Denies threats or abuse. Denies injuries from another. Nutritional screening: No deficits noted. Tuberculosis screening: No symptoms or risk factors identified. Fall Risk None identified. Assessment: 03:00 General: Appears in no apparent distress. comfortable, Behavior is calm, cooperative, jb4 appropriate for age. Pain: Complains of pain in chest and abdomen Pain does not radiate. Pain currently is 8 out of 10 on a pain scale. Pain began 1 hour ago. Neuro: Level of Consciousness is awake, alert, obeys commands, Oriented to person, place, time, situation. Cardiovascular: Patient's skin is warm and dry. Respiratory: Airway is patent Respiratory effort is even, unlabored, Respiratory pattern is regular, symmetrical, Breath sounds are clear bilaterally. GI: No signs and/or symptoms were reported involving the gastrointestinal system. : No signs and/or symptoms were reported regarding the genitourinary system. EENT: No signs and/or symptoms were reported regarding the EENT system. Derm: Skin is intact, Skin is pink, warm \\T\\ dry. Musculoskeletal: Circulation, motion, and sensation intact. Range of motion: intact in all extremities. 04:17 Reassessment: Patient upset, discussing with significant other if she rather go home; lp1 States "The IV's hurt too bad". 04:25 Reassessment: After pt and sig. other spoke she has decided that she wants to leave. He fc is requesting that she be given pain medication prior to them leaving. Explained that if she left she would have to sign AMA. They both state that they understand. He states that he will be taking her to [facility] where she normally get her treatment. Discussed with MD and pt to get Index 5 mg prior to leaving and she will need to again sign AMA. This was explained again to pt and sig. other. Vital Signs: 02:57 BP 124 / 79; Pulse 102; Resp 18; Temp 98.8; Pulse Ox 100% ; Weight 54.43 kg; Height 4 wh ft. 10 in. (147.32 cm); Pain 8/10; 02:57 Body Mass Index 25.08 (54.43 kg, 147.32 cm) ED Course: 02:33 Patient arrived in ED. ds1 02:47 Shahzad Sutton MD is Attending Physician. pkl 02:48 Heriberto Mayo, RN is Primary Nurse. jb4 02:56 Triage completed. wh 02:58 Arm band placed on left wrist. wh 02:58 Patient has correct armband on for positive identification. Placed in gown. Bed in low wh position. Call light in reach. Side rails up X 1. surveillance system monitor on. Pulse ox on. NIBP on. 03:00 Patient maintains SpO2 saturation greater than 95% on room air. jb4 03:15 EKG done, by ED staff, reviewed by Shahzad Sutton MD. ds4 04:12 Radiology exam delayed due to IV insertion attempt and/or patient not having kw1 appropriate IV at this time. Patient has not been able to drink oral contrast for CT exam. 04:16 Missed attempt(s): 22 gauge in right antecubital area. Missed attempt(s): 22 gauge in lp1 left antecubital area. 04:38 No provider procedures requiring assistance completed. Patient did not have IV access jb4 during this emergency room visit. 05:25 XRAY CXR (1 view) In Process Unspecified. EDMS Administered Medications: 04:39 Not Given (Patient Refused): Zofran 4 mg IVP once; over 2 minutes jb4 04:39 Drug: Index 5 mg-325 mg 1 tabs {Note: Rass score 0.} Route: PO; jb4 04:39 Follow up: Response: Medication administered at discharge.; RASS: Alert and Calm (0) jb4 04:40 Not Given (Patient Refused): NS 0.9% 1000 ml IV at 1000 ml once jb4 04:40 Not Given (Patient Refused): morphine 2 mg IVP once; (PAIN>8) RASS on ADMN: Combtv4, jb4 Very Agttd3, Agttd2, Rstlss1, AlertClm0, Drwsy-1, LtSdtn-2, ModSdtn-3, DpSdtn-4, UnArsble-5 x2 Outcome: 04:38 AMA AMA form signed jb4 04:38 Condition: stable 04:38 Discharge instructions given to patient, significant other, Instructed on discharge instructions, follow up and referral plans. Demonstrated understanding of instructions. 04:40 Patient left the ED. jb4 Signatures: Dispatcher [employer] EDMS Shahzad Sutton MD MD pkl Chretien, Felicia RN Mónica Gonsales ds1 Maribeth Uribe RN RN lp1 Surendra Michael ds4 Heriberto Mayo RN RN jb4 Robert Bernal Kimberly kw1
--- NOTE | 2019-08-08 04:30 | EDPHYS ---
Physician Documentation [facility] Name: Cristina Wheeler Age: 29 yrs Sex: Female : 1990 Arrival Date: 08/08/2019 Time: 02:33 Bed 5 Private MD: ED Physician Shahzad Sutton HPI: 08/08 03:05 This 29 yrs old Female presents to ER via Wheelchair with complaints of Chest pkl Pain, Abdominal Pain. 03:05 The patient presents with abdominal pain in the upper abdomen. Onset: The pkl symptoms/episode began/occurred 4 day(s) ago. The symptoms do not radiate. Associated signs and symptoms: Pertinent positives: chest pain, nausea. 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 - Social history:: Smoking status: Patient/guardian denies using tobacco, Patient uses Vape. - Ebola Screening: : Patient negative for fever greater than or equal to 101.5 degrees Fahrenheit, and additional compatible Ebola Virus Disease symptoms Patient denies exposure to infectious person. ROS: 03:05 Eyes: Negative for injury, pain, redness, and discharge, ENT: Negative for injury, pkl pain, and discharge, Neck: Negative for injury, pain, and swelling. 03:05 Cardiovascular: Positive for chest pain. 03:05 Respiratory: Negative for cough, shortness of breath. 03:05 Abdomen/GI: Positive for abdominal pain, of the right upper quadrant and left upper quadrant. 03:05 Back: Negative for acute changes. 03:05 : Negative for urinary symptoms. 03:05 MS/extremity: Negative for acute changes. 03:05 Skin: Negative for rash. 03:05 Neuro: Negative for altered mental status. Exam: 03:05 Head/Face: Normocephalic, atraumatic. Eyes: Pupils equal round and reactive to light, pkl extra-ocular motions intact. Lids and lashes normal. Conjunctiva and sclera are non-icteric and not injected. Cornea within normal limits. Periorbital areas with no swelling, redness, or edema. ENT: Nares patent. No nasal discharge, no septal abnormalities noted. Tympanic membranes are normal and external auditory canals are clear. Oropharynx with no redness, swelling, or masses, exudates, or evidence of obstruction, uvula midline. Mucous membranes moist. Neck: Trachea midline, no thyromegaly or masses palpated, and no cervical lymphadenopathy. Supple, full range of motion without nuchal rigidity, or vertebral point tenderness. No Meningismus. Chest/axilla: Normal chest wall appearance and motion. Nontender with no deformity. No lesions are appreciated. Cardiovascular: Regular rate and rhythm with a normal S1 and S2. No gallops, murmurs, or rubs. Normal PMI, no JVD. No pulse deficits. Respiratory: Lungs have equal breath sounds bilaterally, clear to auscultation and percussion. No rales, rhonchi or wheezes noted. No increased work of breathing, no retractions or nasal flaring. 03:05 Abdomen/GI: Bowel sounds: normal, Palpation: soft, mild abdominal tenderness, in the right upper quadrant and left upper quadrant, rebound tenderness, is not appreciated. 03:05 Back: Exam negative for acute changes. 03:05 : Exam negative for acute changes. 03:05 Musculoskeletal/extremity: Exam is negative for acute changes. 03:05 Skin: Exam negative for rash. 03:05 Neuro: Orientation: is normal, Mentation: is normal, Cranial nerves: grossly normal, Motor: is normal. Vital Signs: 02:57 BP 124 / 79; Pulse 102; Resp 18; Temp 98.8; Pulse Ox 100% ; Weight 54.43 kg; Height 4 wh ft. 10 in. (147.32 cm); Pain 8/10; 02:57 Body Mass Index 25.08 (54.43 kg, 147.32 cm) wh MDM: 02:47 Patient medically screened. pkl 04:26 Data reviewed: vital signs, nurses notes. ED course: Patient want to go to [facility]. Sign AMA. 08/08 03:03 Order name: Basic Metabolic Panel pk 08/08 03:03 Order name: CBC with Diff pkl 08/08 03:03 Order name: Creatinine for Radiology pkl 08/08 03:03 Order name: Hepatic Function pkl 08/08 03:03 Order name: Lipase pk 08/08 03:03 Order name: UA pk 08/08 03:03 Order name: UDS; Complete Time: 03:48 pkl 08/08 03:28 Order name: XRAY CXR (1 view) pk 08/08 03:31 Order name: Urine Dipstick--Ancillary (enter results); Complete Time: 03:44 [facility] 08/08 03:31 Order name: Urine --Ancillary (enter results); Complete Time: 03:44 jb4 08/08 04:16 Order name: Urine Microscopic Only EDMS Administered Medications: 04:39 Not Given (Patient Refused): Zofran 4 mg IVP once; over 2 minutes jb4 04:39 Drug: [place] 5 mg-325 mg 1 tabs {Note: Rass score 0.} Route: PO; jb4 04:39 Follow up: Response: Medication administered at discharge.; RASS: Alert and Calm (0) jb4 04:40 Not Given (Patient Refused): NS 0.9% 1000 ml IV at 1000 ml once jb4 04:40 Not Given (Patient Refused): morphine 2 mg IVP once; (PAIN>8) RASS on ADMN: Combtv4, jb4 Very Agttd3, Agttd2, Rstlss1, AlertClm0, Drwsy-1, LtSdtn-2, ModSdtn-3, DpSdtn-4, UnArsble-5 x2 Disposition: 08/08/19 04:29 Patient has left against medical advice. Impression: Abdominal pain. - Patients states they are going to Home. - Condition is Stable. Follow up: Private Physician; When: Today; Reason: Re-evaluation by your physician. - Problem is new. - Symptoms are unchanged. Signatures: Dispatcher [employer] EDMS Shahzad Sutton MD MD pkl Chretien, Felicia RN RN Heriberto Cordova RN RN jb4 Robert Bernal Corrections: (The following items were deleted from the chart) 03:06 03:04 HEMOGLOBIN A1C+CHEM A1C.LAB.BRZ ordered. EDMS EDMS 04:35 03:05 Abdomen Pelvis W Con+CT.RAD.BRZ ordered. EDMS EDMS 04:40 03:03 IV Saline Lock ordered. pkl jb4 04:40 03:03 Labs collected and sent ordered. pkl jb4 04:40 04:29 08/08/2019 04:29 Patients has left against medical advice. Impression: Abdominal jb4 pain. Patient states they are going to Home. Condition is Stable. Follow up: Private Physician; When: Today; Reason: Re-evaluation by your physician. Problem is new. Symptoms are unchanged. pkl
[2019-08-08] MEDS ORDERED: HYDROCODONE/APAP 5/325 MG TAB ONE (04:31)
[2019-08-08 04:39] LABS: Absolute Lymphocytes (CBC) 0.8 K/uL (0.7-4.9); Basophils % 0.5 % (0-1.3); Hematocrit 34.7 % (36.0-45.0); Lymphocytes % 7.4 % (15.3-44.8); MPV 9.4 fL (7.6-11.3); RBC Red Blood Cell Count 4.02 M/uL (3.86-4.86)
[2019-08-08 04:48] LABS: BUN Blood Urea Nitrogen 8 mg/dL (7-18); Bicarbonate 25 mmol/L (21-32); Glucose Level 286 mg/dL (74-106); Potassium 3.7 mmol/L (3.5-5.1); Sodium Level 140 mmol/L (136-145)
[2019-08-08 04:49] LABS: ALT/SGPT 15 U/L (12-78); AST/SGOT 6 U/L (15-37); Alkaline Phosphatase 69 U/L (45-117); Bilirubin Direct 0.1 mg/dL (0-0.2); Bilirubin Total 0.4 mg/dL (0.2-1.0); Lipase 75 U/L (73-393)
[2019-08-08 04:53] VITALS: BP 124/79; TEMP 98.8; O2SAT 100
[2019-08-08 04:54] LABS: Urine Bacteria <20 /HPF (<20); Urine Culture Reflex Order REFLEXED; Urine RBC <5 /HPF (NONE SEEN)
--- NOTE | 2019-08-08 10:43 | RAD REPORT ---
EXAM DESCRIPTION: RAD - Chest Single View - 08/08/2019 5:25 am CLINICAL HISTORY: CHEST PAIN Chest pain. COMPARISON: Chest Single View dated 04/28/2019; Chest Single View dated 03/01/2019; Chest Single View dated 02/15/2019; Chest Single View dated 11/29/2018 FINDINGS: Portable technique limits examination quality. The lungs are grossly clear. The heart is normal in size. No displaced fractures. IMPRESSION: No acute intrathoracic process suspected.
--- NOTE | 2019-08-09 08:11 | EKG ---
Test Date: 2019-08-08 Test Time: 02:57:46 Vocational Teacher: STEFFANIE MEASUREMENT RESULTS: Intervals: Rate: 104 NC: 122 QRSD: 74 QT: 340 QTc: 447 [place]: P: 57 NC: 122 QRS: 67 T: 42 INTERPRETIVE STATEMENTS: Sinus tachycardia Possible Left atrial enlargement Borderline ECG Compared to ECG 04/28/2019 07:25:40 Sinus rhythm no longer present Myocardial infarct finding no longer present Electronically Signed On 08-09-19 08:10:10 RETAIL MERCHANDISING COORDINATOR by Leodan Arboleda
== END 2019-08-08 04:40 | disposition left against medical advice (07) ==
LOC: ER 02:33
DX: R10.9 Unspecified abdominal pain (principal); Z53.29 Procedure and treatment not carried out because of patient's decision for other reasons; Z88.0 Allergy status to penicillin; Z88.2 Allergy status to sulfonamides; Z91.018 Allergy to other foods
CPT/HCPCS: 36415; 71045; 80048; 80076; 80307; 81003; 81015; 81025; 83690; 85025; 87086; 87088; 93005; 99285; J2270; J2405; J7030

== ENCOUNTER 2019-08-23 20:37 | Emergency (ER) | payer OTHER ==
--- OUTSIDE RECORDS SUMMARY | 2019-08-23 20:40 | XMS REPORT ---
:1990 [facility] Address [address] [place] [address] Care Team Providers Name Role Phone Unavailable [...]
--- NOTE | 2019-08-23 21:05 | ER ---
Nurse's Notes [facility] Name: Cristina Wheeler Age: 29 yrs Sex: Female : 1990 Arrival Date: 08/23/2019 Time: 20:40 Bed Waiting Private MD: Diagnosis: Encounter for Medication Refill Presentation: 08/23 21:02 Presenting complaint: Patient states: her insurance company told her to come to ED to bb get her prescriptions for her insulin written because she is a type one diabetic. Transition of care: patient was not received from another setting of care. Onset of symptoms was August 23, 2019. Risk Assessment: Do you want to hurt yourself or someone else? Patient reports no desire to harm self or others. Initial Sepsis Screen: Does the patient meet any 2 criteria? No. Patient's initial sepsis screen is negative. Does the patient have a suspected source of infection? No. Patient's initial sepsis screen is negative. Care prior to arrival: None. 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 - Social history:: Smoking status: Patient uses tobacco products, vapes. - Ebola Screening: : No symptoms or risks identified at this time. Assessment: 21:20 Reassessment: No changes from previously documented assessment. see triage note. bb Vital Signs: 21:06 BP 125 / 75; Pulse 99; Resp 16 S; Temp 98(O); Pulse Ox 100% on R/A; bb ED Course: 20:40 Patient arrived in ED. cl3 21:00 Taars Reece PA is PHCP. jr8 21:00 Niko Leon MD is Attending Physician. jr8 21:03 Triage completed. bb 21:06 Arm band placed on Patient Taras BESS in triage for pt evaluation, pt to be bb discharged with prescriptions. 21:20 No provider procedures requiring assistance completed. Patient did not have IV access bb during this emergency room visit. Administered Medications: No medications were administered Outcome: 21:05 Discharge ordered by MD. fritz 21:20 Discharged to home ambulatory. bb 21:20 Condition: stable 21:20 Discharge instructions given to patient, Instructed on discharge instructions, follow up and referral plans. medication usage, Demonstrated understanding of instructions, follow-up care, medications, Prescriptions given X 1. 21:21 Patient left the ED. bb Signatures: Ashwini Daigle RN RN Taras Beck PA PA jr8 Lewis, Charde cl3
--- NOTE | 2019-08-23 21:05 | EDPHYS ---
Physician Documentation [facility] Name: Cristina Wheeler Age: 29 yrs Sex: Female : 1990 Arrival Date: 08/23/2019 Time: 20:40 Bed Waiting Private MD: ED Physician Niko Leon HPI: 08/23 21:03 This 29 yrs old Female presents to ER via Unassigned with complaints of jr8 Medication Refill. 21:03 Onset: The symptoms/episode began/occurred acutely, today. Associated signs and jr8 symptoms: Pertinent positives: None. The patient has not experienced similar symptoms in the past. The patient has not recently seen a physician. Stated that her old PCP is no longer taking her insurance and needs her Lantus refilled. Called insurance company and told her to get prescription from ED . COUNSEL: 21:06 LMP 08/07/2019 bb Historical: - Allergies: 21:06 flu medication; bb 21:06 PENICILLINS; bb 21:06 Spinach; bb 21:06 Sulfa (Sulfonamide Antibiotics); bb - Home Meds: 21:06 Humalog Sub-Q [Active]; Lantus Sub-Q [Active]; gabapentin oral oral [Active]; bb - PMHx: 21:06 Arthritis; Diabetes - IDDM; neuropathy; bb - Immunization history:: Adult Immunizations up to date. - Social history:: Smoking status: Patient uses tobacco products, vapes. - Ebola Screening: : No symptoms or risks identified at this time. ROS: 21:03 Eyes: Negative for injury, pain, redness, and discharge, ENT: Negative for injury, jr8 pain, and discharge, Neck: Negative for injury, pain, and swelling, Cardiovascular: Negative for chest pain, palpitations, and edema, Respiratory: Negative for shortness of breath, cough, wheezing, and pleuritic chest pain, Abdomen/GI: Negative for abdominal pain, nausea, vomiting, diarrhea, and constipation, Back: Negative for injury and pain, MS/Extremity: Negative for injury and deformity, Skin: Negative for injury, rash, and discoloration, Neuro: Negative for headache, weakness, numbness, tingling, and seizure. Exam: 21:03 Eyes: Pupils equal round and reactive to light, extra-ocular motions intact. Lids and jr8 lashes normal. Conjunctiva and sclera are non-icteric and not injected. Cornea within normal limits. Periorbital areas with no swelling, redness, or edema. ENT: Nares patent. No nasal discharge, no septal abnormalities noted. Tympanic membranes are normal and external auditory canals are clear. Oropharynx with no redness, swelling, or masses, exudates, or evidence of obstruction, uvula midline. Mucous membranes moist. Neck: Trachea midline, no thyromegaly or masses palpated, and no cervical lymphadenopathy. Supple, full range of motion without nuchal rigidity, or vertebral point tenderness. No Meningismus. Cardiovascular: Regular rate and rhythm with a normal S1 and S2. No gallops, murmurs, or rubs. Normal PMI, no JVD. No pulse deficits. Respiratory: Lungs have equal breath sounds bilaterally, clear to auscultation and percussion. No rales, rhonchi or wheezes noted. No increased work of breathing, no retractions or nasal flaring. Abdomen/GI: Soft, non-tender, with normal bowel sounds. No distension or tympany. No guarding or rebound. No evidence of tenderness throughout. Back: No spinal tenderness. No costovertebral tenderness. Full range of motion. Skin: Warm, dry with normal turgor. Normal color with no rashes, no lesions, and no evidence of cellulitis. MS/ Extremity: Pulses equal, no cyanosis. Neurovascular intact. Full, normal range of motion. Neuro: Awake and alert, GCS 15, oriented to person, place, time, and situation. Cranial nerves II-XII grossly intact. Motor strength 5/5 in all extremities. Sensory grossly intact. Cerebellar exam normal. Normal gait. Vital Signs: 21:06 BP 125 / 75; Pulse 99; Resp 16 S; Temp 98(O); Pulse Ox 100% on R/A; bb MDM: 21:03 Data reviewed: vital signs, nurses notes, and as a result, I will discharge patient. 8 Data interpreted: Pulse oximetry: on room air is 100 %. Interpretation: normal. Counseling: I had a detailed discussion with the patient and/or guardian regarding: the historical points, exam findings, and any diagnostic results supporting the discharge/admit diagnosis, the need for outpatient follow up, a family practitioner, to return to the emergency department if symptoms worsen or persist or if there are any questions or concerns that arise at home. 21:05 Patient medically screened. jr8 08/23 21:05 Order name: Glucose, Ancillary Testing; Complete Time: 21:18 EDMS Administered Medications: No medications were administered Disposition: 08/24 08:32 Co-signature as Attending Physician, Niko Leon MD I agree with the assessment and tam plan of care. Disposition: 08/23/19 21:05 Discharged to Home. Impression: Encounter for Medication Refill . - Condition is Stable. - Discharge Instructions: Blood Glucose Monitoring, Adult. - Prescriptions for Lantus 100 unit/mL Subcutaneous solution - inject 15 unit by SUBCUTANEOUS route 2 times per day; 1 Syringe. - Medication Reconciliation Form, Thank You Letter, Antibiotic Education, Prescription Opioid Use form. - Follow up: Private Physician; When: 2 - 3 days; Reason: Recheck today's complaints, Continuance of care, Re-evaluation by your physician. - Problem is new. - Symptoms have improved. Signatures: Dispatcher [employer] [facility] Niko Leon MD MD cha Ballard, Brenda, YOAN RN bb Taras Reece PA PA jr8 Corrections: (The following items were deleted from the chart) 08/23 21:21 21:05 08/23/2019 21:05 Discharged to Home. Impression: Encounter for Medication Refill bb . Condition is Stable. Discharge Instructions: Blood Glucose Monitoring, Adult. Prescriptions for Lantus 100 unit/mL Subcutaneous solution - inject 15 unit by SUBCUTANEOUS route 2 times per day; 1 Syringe. and Forms are Medication Reconciliation Form, Thank You Letter, Antibiotic Education, Prescription Opioid Use. Follow up: Private Physician; When: 2 - 3 days; Reason: Recheck today's complaints, Continuance of care, Re-evaluation by your physician. Problem is new. Symptoms have improved. jr8
[2019-08-23 21:37] VITALS: BP 125/75; TEMP 98; O2SAT 100
== END 2019-08-23 21:21 | disposition home or self-care (01) ==
LOC: ER 20:37
DX: Z76.0 Encounter for issue of repeat prescription (principal); E11.40 Type 2 diabetes mellitus with diabetic neuropathy, unspecified; F17.290 Nicotine dependence, other tobacco product, uncomplicated; Z79.4 Long term (current) use of insulin; Z88.0 Allergy status to penicillin; Z88.2 Allergy status to sulfonamides; Z88.8 Allergy status to other drugs, medicaments and biological substances; Z91.018 Allergy to other foods
CPT/HCPCS: 82947; 99282

== ENCOUNTER 2020-07-19 18:45 | Emergency (ER) | payer OTHER ==
--- OUTSIDE RECORDS SUMMARY | 2020-07-19 18:47 | XMS REPORT | Summary of Care ---
:1990 Author Organization [facility] - Health Address [address] [place] [address] Care Team Providers Name Role Phone Pcp, Does Not Have A Primary Care Provider Encounter Details Date Type Department Care Team Description 06/20/2020 Orders Only [facility] Doctor Unassigned, No [address] [facility] [place] [address] [address] [place] [address] Allergies Active Allergy Reactions Severity Noted Date Comments Penicillins Rash 12/18/2004 Sulfa (Sulfonamide Antibiotics) Unknown - See comments 04/15/2019 documented as of this encounter (statuses as of 06/20/2020) Medications Medication Sig Dispensed Refills Start Date [...] as of this encounter (statuses as of 06/20/2020) Active Problems Problem Noted Date Hyperglycemia 10/02/2009 Uncontrolled type 1 diabetes mellitus 2009 Overview: ICD10 Diagnosis Term Chemistry Professor Utility 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 Type 1 diabetes mellitus 04/27/2005 Overview: ICD10 Diagnosis Term Chemistry Professor Utility Astigmatism 04/27/2005 Overview: ICD10 Diagnosis Term Chemistry Professor Utility documented as of this encounter (statuses as of 06/20/2020) Resolved Problems Problem Noted Date Resolved Date Fracture of unspecified bones 12/01/2005 06/12/2007 Overview: ICD10 Diagnosis Term Chemistry Professor Utility Other follow-up examination(V67.59) 04/27/200505/16 Adjustment reaction 04/27/2005 07/29/2007 Overview: ICD10 Diagnosis Term Chemistry Professor Utility Problems with learning 04/27/2005 07/29/2007 documented as of this encounter (statuses as of 06/20/2020) Immunizations Name Administration Dates Next Due DTAP 05/13/1995 DTP 05/13/1995, 11/05/1992, 01/17/1992, 1991, 1991 HEPATITIS A 05/16/2003, 11/22/2002 HIB 4 Dose Schedule 11/05/1992, 01/17/1992, 1991, 1991 Hep B, Adol or Pedi Dosage 05/16/2003, 12/24/2002, 3 Influenza Virus Vaccine - Whole 06/29/2005 MMR 05/13/1995, 11/05/1992 Meningococcal Polysaccharide (groups 01/05/2007 A, C, Y and W-135) conjugate vaccine (MCV4P) Polio (IPV/OPV) 05/13/1995, 11/05/1992, 01/17/1992, 1991, 1991 TDAP 01/05/2007 Td 05/16/2003 documented as of this encounter Social History Tobacco Use Types Packs/Day Years Used Date Never Smoker Alcohol Use Drinks/Week oz/Week Comments No Sex Assigned at Date Recorded Not on file COVID-19 Exposure Response Date Recorded In the last month, have you been in contact with No / Unsure 06/20/2020 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 documented as of this encounter Last Filed Vital Signs Not on filedocumented in this encounter Plan of Treatment Date Type Specialty Care Team Description 06/20/2020 Office Visit Endocrinology Diabetes & Neymar Olmedo MD Metabolism [address] [facility] [address] [address] 15 [phone] Health Maintenance Due Date Last Done Comments EYE EXAM 2001 Depression Screening 2003 FOOT EXAM 2009 URINE MICROALBUMIN 11/25/2009 11/25/2008, 04/05/2007, 05/12/2006, Additional history exists LDL-C 03/23/2011 03/23/2010, 07/04/2009, 11/25/2008, Additional history exists PAP SMEAR 2012 DTaP,Tdap,and Td Vaccines 01/05/2017 01/05/2007, 05/16/2003 , (7 - Td) 05/13/1995, Additional history exists HgA1C 10/14/2019 04/15/2019, 03/23/2010, 01/01/2010, Additional history exists CREATININE (SERUM) 04/15/2020 04/15/2019, 10/05/2009, 10/04/2009, Additional history exists INFLUENZA VACCINE (#1) 2020 06/29/2005 PNEUMOCOCCAL 0-64 YEARS Aged Out No longe r eligible COMBINED SERIES based on patient 's age to complete this topic documented as of this encounter Procedures Procedure Name Priority Date/Time Associated Diagnosis Comme nts ASSIGNMENT OF BENEFITS Routine 06/20/2020 10:25 AM MAIN LINE STATION ENGINEER documented in this encounter Results Not on filedocumented in this encounter Insurance Payer Benefit Plan / Subscriber ID Effective Dates Phone Addre ss Type Group [facility] MEDICAID OF [id number] 2019-Present [phone] [address] [place] [id number] [place] [phone] documented as of this encounter
--- OUTSIDE RECORDS SUMMARY | 2020-07-19 18:47 | XMS REPORT | Summary of Care ---
:1990 Author Organization [facility] Address [address] [place] [address] Care Team Providers Name Role Phone Christopher [facility] Primary Care Provid er Reason for Visit Reason Comments LAB WORK Auth/Cert Status Reason Specialty Diagnoses / Procedures Referred By C ontact Referred To Contact Phlebotomy Diagnoses Type 1 diabetes mellitus with other specified complication Adc Pob Lab Draw Procedures lipid Professional Office [address] , [address] [place] [address] Fax: Encounter Details Date Type Department Care Team Description 06/20/2020 Heavy Forger Visit [facility] Neymar Dickinson MD [address] [place] [address] [address] [place] [address] Type 1 diabetes Professional Office Pob, Adc Lab Main mellitus with other Building Phlebotomy specifie d Lab complication Professional Office [address] , [address] [place] [address] Allergies Active Allergy Reactions Severity Noted Date Comments Penicillins Rash 12/18/2004 Sulfa (Sulfonamide Antibiotics) Unknown - See comments 04/15/2019 documented as of this encounter (statuses as of 06/20/2020) Medications Medication Sig Dispensed Refills Start Date End Date Status Diphenhydramine-Aceta Take by mouth. 0 Active minophen (TYLENOL PM EXTRA STRENGTH) 25-500 mg Tab insulin degludec inject 22 Units 9 Syringe 3 06/20/2020 Active (TRESIBA FLEXTOUCH under the skin U-100) 100 unit/mL (3 daily. mL) InPnIndications: Neuropathy associated with endocrine disorder insulin lispro-aabc inject 5-14 Units 45 mL 3 06/20/2020 Active 100 unit/mL under the skin 3 InPnIndications: (three) times Neuropathy associated daily with meals. with endocrine disorder gabapentin 300 mg Take 1 capsule by 180 capsule 3 06/20/2020 Active capsuleIndications: mouth 2 (two) Type 1 diabetes times daily. mellitus with other specified complication Insulin [place], inject 1 Each 360 Each 3 06/20/2020 Active Disposable, (PEN under the skin NEEDLE) 31 gauge x before meals and 3/16" at bedtime. Use NdleIndications: Type as directed 1 diabetes mellitus with other specified complication blood sugar Use as directed 3 Box 3 06/20/2020 A ctive diagnostic (RELION ULTIMA) stripIndications: Type 1 diabetes mellitus with other specified complication lancets (RELION THIN Use as directed 270 Each 3 06/20/2020 Active LANCETS) 26 gauge MiscIndications: Type 1 diabetes mellitus with other specified complication documented as of this encounter (statuses as of 06/20/2020) Active Problems Problem Noted Date Hyperglycemia 10/02/2009 Uncontrolled type 1 diabetes mellitus 2009 Overview: ICD10 Diagnosis Term Fur Finisher Tailor Utility 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 Type 1 diabetes mellitus 04/27/2005 Overview: ICD10 Diagnosis Term Fur Finisher Tailor Utility Astigmatism 04/27/2005 Overview: ICD10 Diagnosis Term Fur Finisher Tailor Utility documented as of this encounter (statuses as of 06/20/2020) Resolved Problems Problem Noted Date Resolved Date Fracture of unspecified bones 12/01/2005 06/12/2007 Overview: ICD10 Diagnosis Term Fur Finisher Tailor Utility Other follow-up examination(V67.59) 04/27/200505/16 Adjustment reaction 04/27/2005 07/29/2007 Overview: ICD10 Diagnosis Term Fur Finisher Tailor Utility Problems with learning 04/27/2005 07/29/2007 documented [...] Used Alcohol Use Drinks/Week oz/Week Comments Yes Ocassionally Sex Assigned at Date Recorded Not on file COVID-19 Exposure Response Date Recorded In the last month, have you been in contact with No / Unsure 06/20/2020 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 documented as of this encounter Last Filed Vital Signs Not on filedocumented in this encounter Nursing Notes Carri Sheets - 06/20/2020 1:00 PM CST Venipuncture collection performed by clean technique on the left wrist. Total of 2 attempts were made. Slight pressure and a bandage/dressing were applied to the site(s). The patient experienced no complications. The following specimens were processed according to instructions and sent to [facility] laboratories per lab order on TODAY: LT BLUE SST 1 RED LAV 1 PPT DK GREEN (LiHep) DK GREEN (SodH) PUGA DK BLUE (K2) DK BLUE (S) ACD Blood Culture NIPT/NTD documented in this encounter Plan of Treatment Health Maintenance Due Date Last Done Comments [...] this topic documented as of this encounter Results Not on filedocumented in this encounter Visit Diagnoses Diagnosis Type 1 diabetes mellitus with other spec ified complication documented in this encounter Insurance Payer Benefit Plan / Subscriber ID Effective Dates Phone Addre ss Type Group [facility] MEDICAID OF [id number] 2019-Present [phone] [address] [place] [id number] [place] [phone] documented as of this encounter
--- OUTSIDE RECORDS SUMMARY | 2020-07-19 18:47 | XMS REPORT | Clinical Summary ---
:1990 Author Organization [facility] Address [address] [place] [address] Care Team Providers Name Role Phone Provider, Unknown Primary Care Provider Unavailable Allergies Active Allergy Reactions Severity Noted Date Comments Ibuprofen 11/15/2017 Sulfa (Sulfonamide Antibiotics) 8 Medications No known medications Active Problems Not on file Surgical History Surgery Date Site/Laterality Comments ANKLE FRACTURE SURGERY Medical History Medical History Date Comments Diabetes mellitus (HCC) Neuropathy Social History Tobacco Use Types Packs/Day Years Used Date Never Smoker Smokeless Tobacco: Never Used Alcohol Use Drinks/Week oz/Week Comments Yes occasional Sex Assigned at Date Recorded Not on file Last Filed Vital Signs Not on file Plan of Treatment Not on file Results Not on fileafter 07/19/2019 Advance Directives For more information, please contact: [phone] Type Date Recorded Patient Scale Installer Explanati on Advance Directives, Living Will 11/15/2017 5:47 AM and Medical Power of Tunnel Heading Supervisor
--- OUTSIDE RECORDS SUMMARY | 2020-07-19 18:48 | XMS REPORT | Continuity of Care Document ---
:1990 Author Organization [facility] t Address [address] [place] [address] Care Team Providers Name Role Phone Provider Primary Care Physician Unavailable Alok MILLER, H Attending Clinician Pob, Lab Main Attending Clinician Unavailable Doctor Unassigned, Name Attending Clinician Unavailable Shay MIRANDA, G Attending Clinician Payers Payer Name Policy Type Policy Number Effective Date Expiration Date S ource Problems This patient has no known problems. Allergies, Adverse Reactions, Alerts Allergy Allergy Status Severity Reaction(s) Onset Inactive Treating Comm ents Source Name Type Date Date Clinician Penicill DA Active U 2017-0 [facility] ins 03[facility] [place] [facility] Sulfa DA Active U [facility] (Sulfona 03-21 [place] mide 00:00: d Antibiot 00 [facility] ibuprofe DA Active U 2017- [facility] n 03-21 [place] sulfamet DA Active SV [facility] hoxazole 03-21 [place] 00:[facility] trimetho DA Active SV 2017- [facility] prim 03-21 [place] 00:[facility]: d [facility] penicill DA Active U [facility] in G 03-21 [place] 00:00: d 00 [facility] shellfis DA Active SV [facility] h 03-21 [place] derived 00:00: d 00 [facility] spinach DA Active [place] [facility] 03-21 [place] 00:00: d 00 [facility] Ibuprofe Propensi Active [place] ty to 11-15 [facility] adverse 00:00: st reaction 00 s to drug Sulfa Propensi Active [place] (Sulfona ty to 11-15 [facility] mide adverse 00:00: st Antibiot reaction 00 ics) s to drug MUSHROOM DA Active [place] [facility] S 10-09 [place] 00:[facility]: d [facility] Social History Social Habit Start Date Stop Date Quantity Comments Source Sex Assigned At [facility] ethodist Tobacco use and 2017-11-15 2017-11-15 Never used [facility] ethodist exposure 00:00:00 00:00:00 Alcohol intake 2017-11-15 2017-11-15 Current drinker of [employer] 00:00:00 00:00:00 alcohol (finding) Alcohol Comment 2017-11-15 2017-11-15 occasional [facility] ethodist 00:00:00 00:00:00 Smoking Status Start Date Stop Date Source Never smoker [facility] Medications This patient has no known medications. Procedures This patient has no known procedures. Encounters Start End Encounter Admission Attending Care Care Encounter Source Date/Time Date/Time Type Type Clinicians Facility Department ID 2020-06-23 2020-06-23 Telephone Alok [facility] [id number] 00:00:00 00:00:00 Neymar Sandoval [id number] [place] [id number] Professio [phone] [facility] [address] [facility] 2020-06-20 2020-06-20 Paper Products Machine Operator Jorge Mandujano [facility] [id number] 12:45:30 13:00:30 Visit Lab Attila Jaime [id number] [place] [id number] Professio [phone] [facility] 353 [facility] 2020-06-20 2020-06-20 Orders Doctor CLARK [id number] 00:00:00 00:00:00 Only Unassigned, [place] [id number] Dewy Rose [facility] [phone] [id number] 2020-06-13 2020-06-13 Orders Doctor AMBER [id number] 00:00:00 00:00:00 Only Unassigned, [place] [id number] Dewy Rose [facility] [id number] 2019-04-15 2019-04-15 Emergency [facility] [id number] 15:50:07 17:03:00 Meseret Sandoval [id number] [place] [id number] [place] [phone] [id number] Results This patient has no known results.
--- OUTSIDE RECORDS SUMMARY | 2020-07-19 18:48 | XMS REPORT | Summary of Care ---
:1990 Author Organization [facility] Address [address] [place] [address] Care Team Providers Name Role Phone Christopher Le [facility] Primary Care Provid er Reason for Visit Reason Comments Rx Concern/Question Encounter Details Date Type Department Care Team Description 06/23/2020 Telephone [facility] Neymar Dickinson MD Rx Concern/Question Endocrinology- [address] [address] [address], [address] [place] [address] [place] [address] [phone] Allergies Active Allergy Reactions Severity Noted Date Comments Penicillins Rash 12/18/2004 Sulfa (Sulfonamide Antibiotics) Unknown - See comments 04/15/2019 documented as of this encounter (statuses as of 06/23/2020) Medications Medication Sig Dispensed Refills Start Date End Date Status Diphenhydramine-A Take by 0 Ac tive cetaminophen mouth. (TYLENOL PM EXTRA STRENGTH) 25-500 mg Tab insulin degludec inject 22 9 Syringe 3 06/20/2020 Ac tive (TRESIBA Units under FLEXTOUCH U-100) the skin 100 unit/mL (3 daily. mL) InPnIndications: Neuropathy associated with endocrine disorder insulin inject 5-14 45 mL 3 06/20/2020 Active lispro-aabc 100 Units under unit/mL the skin 3 InPnIndications: (three) times Neuropathy daily with associated with meals. endocrine disorder gabapentin 300 mg Take 1 180 capsule 3 06/20/2020 Active capsuleIndication capsule by s: Type 1 mouth 2 (two) diabetes mellitus times daily. with other specified complication Insulin [place], inject 1 Each 360 Each 3 06/20/2020 Active Disposable, (PEN under the NEEDLE) 31 gauge skin before x 3/16" meals and at NdleIndications: bedtime. Use Type 1 diabetes as directed mellitus with other specified complication lancets (ONE Use to check 300 Each 1 06/23/2020 Act alexys TOUCH DELICA) 33 blood sugar gauge Misc 3X daily. DX:E10.69 blood sugar Use to check 300 Strip 1 06/23/2020 Acti ve diagnostic blood sugar (ONETOUCH VERIO 3X daily. TEST STRIPS) DX:E10.69 strip Blood-Glucose Use to check 1 Each 0 06/23/2020 Ac tive Meter (ONETOUCH blood sugar VERIO FLEX METER) 3X daily. 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 Type 1 diabetes mellitus 04/27/2005 Overview: ICD10 Diagnosis Term Agricultural Research Engineer Utility Astigmatism 04/27/2005 Overview: ICD10 Diagnosis Term Agricultural Research Engineer Utility documented as of this encounter (statuses as of 06/23/2020) Resolved Problems Problem Noted Date Resolved Date Fracture of unspecified bones 12/01/2005 06/12/2007 Overview: ICD10 Diagnosis Term Agricultural Research Engineer Utility Other follow-up examination(V67.59) 04/27/200505/16 Adjustment reaction 04/27/2005 07/29/2007 Overview: ICD10 Diagnosis Term Agricultural Research Engineer Utility Problems with learning 04/27/2005 07/29/2007 documented as of this encounter (statuses as of 06/23/2020) Immunizations Name Administration Dates Next Due DTAP [...] with No / Unsure 06/20/2020 10:22 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 documented as of this encounter Last Filed Vital Signs Not on filedocumented in this encounter Miscellaneous Notes Telephone Encounter - Roxy Cameron RN - 06/23/2020 2:09 PM [employer] is the insurance preferred diabetic testing supplies. Prescriptions sent. documented in this encounter Plan of Treatment Health Maintenance Due Date Last Done Comments EYE EXAM 2001 Depression Screening 2003 FOOT EXAM 2009 PAP SMEAR 2012 DTaP,Tdap,and Td Vaccines 01/05/2017 01/05/2007, 05/16/2003 , (7 - Td) 05/13/1995, Additional history exists HgA1C 10/14/2019 04/15/2019, 03/23/2010, 01/01/2010, Additional history exists INFLUENZA VACCINE (#1) 2020 06/29/2005 CREATININE (SERUM) 06/20/2021 06/20/2020, 04/15/2019, 10/05/2009, Additional history exists LDL-C 06/20/2021 06/20/2020, 03/23/2010, 07/04/2009, Additional history exists URINE MICROALBUMIN 06/20/2021 06/20/2020, 11/25/2008, 04/05/2007, Additional history exists PNEUMOCOCCAL 0-64 YEARS Aged Out No longe r eligible COMBINED SERIES based on patient 's age to complete this topic documented as of this encounter Results Not on filedocumented in this encounter Insurance Payer Benefit Plan / Subscriber ID Effective Dates Phone Addre ss Type Group [facility] MEDICAID OF [id number] 2019-Present [phone] [place] [address] [place] [address] documented as of this encounter
--- OUTSIDE RECORDS SUMMARY | 2020-07-19 18:48 | XMS REPORT | Summary of Care ---
:1990 Author Organization [facility] Address [address] [place] [address] Care Team Providers Name Role Phone Pcp, Does Not Have A Primary Care Provider Christopher [facility] Primary Care Provid er Encounter Details Date Type Department Care Team Description 06/13/[address] [facility] Doctor Unassigned, No 301 [facility] [place] [address] [address] [place] [address] Allergies Active Allergy Reactions Severity Noted Date Comments Penicillins Rash 12/18/2004 Sulfa (Sulfonamide Antibiotics) Unknown - See comments 04/15/2019 documented as of this encounter (statuses as of 06/23/2020) Medications No known medicationsdocumented as of this encounter (statuses as of 06/23/2020) Active Problems Problem Noted Date Hyperglycemia 10/02/2009 Uncontrolled type 1 diabetes mellitus 2009 Overview: ICD10 Diagnosis Term Front Maker Lockstitch Utility 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 Type 1 diabetes mellitus 04/27/2005 Overview: ICD10 Diagnosis Term Front Maker Lockstitch Utility Astigmatism 04/27/2005 Overview: ICD10 Diagnosis Term Front Maker Lockstitch Utility documented as of this encounter (statuses as of 06/23/2020) Resolved Problems Problem Noted Date Resolved Date Fracture of unspecified bones 12/01/2005 06/12/2007 Overview: ICD10 Diagnosis Term Front Maker Lockstitch Utility Other follow-up examination(V67.59) 04/27/200505/16 Adjustment reaction 04/27/2005 07/29/2007 Overview: ICD10 Diagnosis Term Front Maker Lockstitch Utility Problems with learning 04/27/2005 07/29/2007 documented [...] with No / Unsure 06/20/2020 10:22 AM ANALYTICS LEAD someone who was confirmed or suspected to have Coronavirus / COVID-19? documented as of this encounter Last Filed Vital Signs Not on filedocumented in this encounter Plan of Treatment Health [...] Name Priority Date/Time Associated Diagnosis Comme nts REFERRAL- Routine 06/13/2020 12:01 AM CDT REQUEST/RESPONSE documented in this encounter Results Not on filedocumented in this encounter Insurance Payer Benefit Plan / Subscriber ID Effective Dates Phone Addre ss Type Group [facility] MEDICAID OF [id number] 2019-Present [phone] [address] Medicaid [place] [id number] [place] [phone] documented as of this encounter
[2020-07-19] MEDS ORDERED: ONDANSETRON 4 MG (ODT) TAB ONE (19:59)
[2020-07-19] MEDS ORDERED: NA CHLORIDE 0.9% 1,000 ML ONE (20:29)
[2020-07-19 21:05] LABS: Absolute Lymphocytes (CBC) 1.3 K/uL (0.7-4.9); Hematocrit 42.2 % (36.0-45.0); Lymphocytes % 18.3 % (15.3-44.8); MPV 9.3 fL (7.6-11.3); RBC Red Blood Cell Count 4.75 M/uL (3.86-4.86)
[2020-07-19] MEDS ORDERED: ACETAMINOPHEN 500 MG TAB ONE (21:09)
[2020-07-19 21:52] LABS: Albumin 3.4 g/dL (3.4-5.0); Bilirubin Direct 0.1 mg/dL (0-0.2); Bilirubin Total 0.5 mg/dL (0.2-1.0); Potassium 4.3 mmol/L (3.5-5.1); Protein, Total 7.1 g/dL (6.4-8.2)
[2020-07-19 22:30] LABS: Urine Blood 2+ (NEG); Urine Glucose 2+ (NEG); Urine Protein 1+ (NEG); Urine Specific Gravity >1.030 (1.005-1.030)
--- NOTE | 2020-07-19 22:31 | ER ---
Nurse's Notes [facility] Name: Cristina Wheeler Age: 30 yrs Sex: Female : 1990 Arrival Date: 07/19/2020 Time: 18:48 Bed 5 Private MD: Diagnosis: Acute pharyngitis Presentation: 07/19 19:06 Chief complaint: Patient states: throat pain started last Tuesday, loss of appetite rr5 now it gets worse. nausea and vomiting started today. Coronavirus screen: nausea, sore throat, Client presents with at least one sign or symptom that may indicate coronavirus-19. Standard/surgical mask placed on the client. Provider contacted for isolation considerations. Ebola Screen: Patient negative for fever greater than or equal to 101.5 degrees Fahrenheit, and additional compatible Ebola Virus Disease symptoms Patient denies exposure to infectious person. Patient denies travel to an Ebola-affected area in the 21 days before illness onset. Initial Sepsis Screen: Does the patient meet any 2 criteria? HR > 90 bpm. Yes Does the patient have a suspected source of infection? Yes: Productive cough/pneumonia. Risk Assessment: Do you want to hurt yourself or someone else? Patient reports no desire to harm self or others. Onset of symptoms was July 16, 2020. 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 - Social history:: Smoking status: Reported history of juuling and/or vaping. Patient uses alcohol, occasionally. Patient/guardian denies using street drugs. Screenin:00 Abuse screen: Denies threats or abuse. Denies injuries from another. Nutritional wh screening: No deficits noted. Tuberculosis screening: No symptoms or risk factors identified. Fall Risk None identified. Assessment: 20:00 General: Appears in no apparent distress. Behavior is calm, cooperative, appropriate wh for age. Pain: Complains of pain in abdomen and sore throat. Neuro: Level of Consciousness is awake, alert, obeys commands, Oriented to person, place, time, situation, Appropriate for age. Cardiovascular: Capillary refill < 3 seconds. Respiratory: Airway is patent Respiratory effort is even, unlabored, Respiratory pattern is regular, symmetrical. GI: Abdomen is flat, non-distended, Reports nausea, vomiting. : No signs and/or symptoms were reported regarding the genitourinary system. EENT: Throat is pink. Derm: Skin is intact, is healthy with good turgor, Skin is pink, warm \T\ dry. normal. Musculoskeletal: Circulation, motion, and sensation intact. 21:30 Reassessment: Patient appears in no apparent distress at this time. No changes from previously documented assessment. Patient and/or family updated on plan of care and expected duration. Pain level reassessed. Patient is alert, oriented x 3, equal unlabored respirations, skin warm/dry/pink. 23:00 Reassessment: Patient appears in no apparent distress at this time. Patient and/or family updated on plan of care and expected duration. Pain level reassessed. Patient is alert, oriented x 3, equal unlabored respirations, skin warm/dry/pink. Patient states feeling better. Patient states symptoms have improved. Vital Signs: 19:06 BP 107 / 62; Pulse 102; Resp 19; Temp 97.8; Pulse Ox 100% ; Weight 51.71 kg; Height 4 rr5 ft. 10 in. (147.32 cm); Pain 6/10; 21:30 BP 110 / 68; Pulse 96; Resp 18; Pulse Ox 99% on R/A; wh 23:00 BP 109 / 71; Pulse 95; Resp 18; Pulse Ox 99% ; wh 19:06 Body Mass Index 23.83 (51.71 kg, 147.32 cm) rr5 ED Course: 18:48 Patient arrived in ED. ds1 19:07 Melchor Cirsostomo MD is Attending Physician. tw4 19:10 Triage completed. rr5 19:42 Robert Bernal is Primary Nurse. wh 20:00 Arm band placed on right wrist. 20:00 Patient has correct armband on for positive identification. Bed in low position. Call light in reach. Side rails up X 1. Pulse ox on. NIBP on. 20:52 Inserted saline lock: 22 gauge in right hand, using aseptic technique. Blood collected. rr5 21:54 Notified ED physician of a critical lab result(s). CO2 of 12 to . 23:07 No provider procedures requiring assistance completed. IV discontinued, intact, bleeding controlled, No redness/swelling at site. Administered Medications: 19:49 Drug: Ondansetron (Zofran) 4 mg Route: PO; 20:51 Follow up: Response: No adverse reaction; Nausea is decreased 20:51 Drug: NS 0.9% 1000 ml Route: IV; Rate: 1 bolus; Site: right hand; 22:22 Follow up: Response: No adverse reaction; IV Status: Completed infusion 20:59 Drug: Tylenol 1000 mg Route: PO; 22:22 Follow up: Response: No adverse reaction; Pain is decreased Outcome: 22:31 Discharge ordered by . tw4 23:07 Discharged to home ambulatory, with family. 23:07 Condition: stable 23:07 Discharge instructions given to patient, family, Instructed on discharge instructions, follow up and referral plans. medication usage, POC Demonstrated understanding of instructions, follow-up care, medications, POC Prescriptions given X 2. 23:11 Patient left the ED. Signatures: Rene Linares RN RN Mónica Jones ds1 Robert Bernal Melchor Crisostomo MD MD tw4 Chris Yang RN RN rr5 Corrections: (The following items were deleted from the chart) 20:52 20:52 Inserted saline lock: 22 gauge in right hand, using aseptic technique. rr5 rr5 23:09 23:06 Reassessment: Patient appears in no apparent distress at this time. Patient wh and/or family updated on plan of care and expected duration. Pain level reassessed. Patient is alert, oriented x 3, equal unlabored respirations, skin warm/dry/pink. Patient states feeling better. Patient states symptoms have improved.
--- NOTE | 2020-07-19 22:31 | EDPHYS ---
Physician Documentation [facility] Name: Cristina Wheeler Age: 30 yrs Sex: Female : 1990 Arrival Date: 07/19/2020 Time: 18:48 Bed 5 Private MD: ED Physician Melchor Crisostomo HPI: 07/19 20:19 This 30 yrs old Female presents to ER via Ambulatory with complaints of tw4 Vomiting, Sore Throat. 20:19 The patient presents to the emergency department with nausea, that is moderate, tw4 vomiting, 1 times since the onset of symptoms. Onset: The symptoms/episode began/occurred today. Possible causes: unknown. The symptoms are aggravated by nothing. The symptoms are alleviated by nothing. The patient has not experienced similar symptoms in the past. 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 - Social history:: Smoking status: Reported history of juuling and/or vaping. Patient uses alcohol, occasionally. Patient/guardian denies using street drugs. ROS: 20:19 Constitutional: Negative for fever, chills, and weight loss, Eyes: Negative for injury, tw4 pain, redness, and discharge, Cardiovascular: Negative for chest pain, palpitations, and edema, Respiratory: Negative for shortness of breath, cough, wheezing, and pleuritic chest pain, Back: Negative for injury and pain, MS/Extremity: Negative for injury and deformity, Skin: Negative for injury, rash, and discoloration, Neuro: Negative for headache, weakness, numbness, tingling, and seizure. 20:19 Abdomen/GI: Positive for abdominal pain, nausea and vomiting, nausea, vomiting, and diarrhea, nausea, vomiting, Negative for diarrhea, constipation, abdominal cramps, abdominal distension, anorexia, dysphagia, hematemesis, black/tarry stool, rectal pain, rectal bleeding, bowel incontinence. Exam: 20:19 Constitutional: This is a well developed, well nourished patient who is awake, alert, tw4 and in no acute distress. Head/Face: Normocephalic, atraumatic. Chest/axilla: Normal chest wall appearance and motion. Nontender with no deformity. No lesions are appreciated. Cardiovascular: Regular rate and rhythm with a normal S1 and S2. No gallops, murmurs, or rubs. Normal PMI, no JVD. No pulse deficits. Respiratory: Lungs have equal breath sounds bilaterally, clear to auscultation and percussion. No rales, rhonchi or wheezes noted. No increased work of breathing, no retractions or nasal flaring. Abdomen/GI: Soft, non-tender, with normal bowel sounds. No distension or tympany. No guarding or rebound. No evidence of tenderness throughout. Back: No spinal tenderness. No costovertebral tenderness. Full range of motion. Skin: Warm, dry with normal turgor. Normal color with no rashes, no lesions, and no evidence of cellulitis. MS/ Extremity: Pulses equal, no cyanosis. Neurovascular intact. Full, normal range of motion. Neuro: Awake and alert, GCS 15, oriented to person, place, time, and situation. Cranial nerves II-XII grossly intact. Motor strength 5/5 in all extremities. Sensory grossly intact. Cerebellar exam normal. Normal gait. Vital Signs: 19:06 BP 107 / 62; Pulse 102; Resp 19; Temp 97.8; Pulse Ox 100% ; Weight 51.71 kg; Height 4 rr5 ft. 10 in. (147.32 cm); Pain 6/10; 21:30 BP 110 / 68; Pulse 96; Resp 18; Pulse Ox 99% on R/A; wh 23:00 BP 109 / 71; Pulse 95; Resp 18; Pulse Ox 99% ; wh 19:06 Body Mass Index 23.83 (51.71 kg, 147.32 cm) rr5 MDM: 19:46 Patient medically screened. tw4 22:30 Differential diagnosis: Nonspecific abd pain, gastritis, cholecystitis. Data reviewed: tw4 vital signs, nurses notes. Data interpreted: Pulse oximetry: Interpretation: normal. Counseling: I had a detailed discussion with the patient and/or guardian regarding: the historical points, exam findings, and any diagnostic results supporting the discharge/admit diagnosis, lab results, radiology results. Medication response: Response to treatment: the patient's symptoms have markedly improved after treatment, and as a result, I will discharge patient. Special discussion: Based on the patient's Hx, exam, and Dx evaluation, there is no indication for emergent surgery or inpatient Tx. It is understood by the patient/guardian that if the Sx's persist or worsen they need to return immediately for re-evaluation. I discussed with the patient/guardian in detail that at this point there is no indication for admission to the hospital. It is understood, however, that if the symptoms persist or worsen the patient needs to return immediately for re-evaluation. 07/19 20:08 Order name: Basic Metabolic Panel [facility] 07/19 20:08 Order name: CBC with Diff [facility] 07/19 20:08 Order name: Hepatic Function [facility] 07/19 20:08 Order name: Lipase [facility] 07/19 20:57 Order name: Urine Microscopic Only [facility] 07/19 22:23 Order name: Urine Dipstick--Ancillary (enter results) [facility] 07/19 20:08 Order name: IV Saline Lock; Complete Time: 20:51 [facility] 07/19 22:23 Order name: Urine --Ancillary (enter results) [facility] 07/19 22:24 Order name: Urine Dipstick-Ancillary [facility] 07/19 22:24 Order name: Urine --Ancillary [facility] 07/19 22:48 Order name: Urine Culture [facility] 07/19 20:09 Order name: Labs collected and sent; Complete Time: 20:51 [facility] 07/19 20:57 Order name: Urine Dipstick-Ancillary (obtain specimen); Complete Time: 22:22 07/19 20:57 Order name: Urine Test (obtain specimen); Complete Time: 22:22 07/19 20:57 Order name: Urine Test (obtain specimen); Complete Time: 22:22 [facility] 07/19 20:57 Order name: Urine Dipstick-Ancillary (obtain specimen); Complete Time: 22:22 [facility] Administered Medications: 19:49 Drug: Ondansetron (Zofran) 4 mg Route: PO; 20:51 Follow up: Response: No adverse reaction; Nausea is decreased 20:51 Drug: NS 0.9% 1000 ml Route: IV; Rate: 1 bolus; Site: right hand; 22:22 Follow up: Response: No adverse reaction; IV Status: Completed infusion 20:59 Drug: Tylenol 1000 mg Route: PO; 22:22 Follow up: Response: No adverse reaction; Pain is decreased Disposition: 07/19/20 22:31 Discharged to Home. Impression: Acute pharyngitis. - Condition is Stable. - Discharge Instructions: Pharyngitis, Nausea and Vomiting, Adult, [id number], Pharyngitis, Klha-ri-[id number], Sore Throat, [id number]. - Prescriptions for Cleocin 150 mg Oral Capsule - take 1 capsule by ORAL route every 6 hours for 10 days; 40 capsule. Zofran 4 mg Oral Tablet - take 1 tablet by ORAL route every 12 hours As needed; 6 tablet. - Medication Reconciliation Form, Thank You Letter, Antibiotic Education, Prescription Opioid Use form. - Follow up: Private Physician; When: Upon discharge from the Emergency Department; Reason: Recheck today's complaints, Continuance of care, Re-evaluation by your physician. - Problem is new. - Symptoms have improved. Signatures: Dispatcher [employer] EDMS Robert Bernal Melchor Crisostomo MD MD tw4 Chris Yang, RN RN rr5 Corrections: (The following items were deleted from the chart) 23:11 22:31 07/19/2020 22:31 Discharged to Home. Impression: Acute pharyngitis. Condition is Stable. Forms are Medication Reconciliation Form, Thank You Letter, Antibiotic Education, Prescription Opioid Use. Follow up: Private Physician; When: Upon discharge from the Emergency Department; Reason: Recheck today's complaints, Continuance of care, Re-evaluation by your physician. Problem is new. Symptoms have improved. tw4
[2020-07-19 22:47] LABS: Urine Amorphous Sediment 1+ /HPF (NONE SEEN); Urine Bacteria LOADED /HPF (<20); Urine Mucus 2+ /HPF (NONE SEEN); Urine Yeast FEW (NONE SEEN)
[2020-07-24 06:10] VITALS: TEMP 97.8
[2020-07-24 06:12] VITALS: O2SAT 99
[2020-07-24 06:13] VITALS: BP 109/71
== END 2020-07-19 23:11 | disposition home or self-care (01) ==
LOC: ER 18:45
DX: J02.9 Acute pharyngitis, unspecified (principal); E11.40 Type 2 diabetes mellitus with diabetic neuropathy, unspecified; Z79.4 Long term (current) use of insulin; Z88.2 Allergy status to sulfonamides; Z88.7 Allergy status to serum and vaccine; Z91.018 Allergy to other foods
CPT/HCPCS: 87088; 85025; 87086; 80048; 36415; 81025; 80076; 83690; J7030; 81003; 81015; 96360; 96361; 99284

== ENCOUNTER 2020-07-21 13:16 | Inpatient (IN) | payer OTHER ==
[2020-07-21] MEDS ORDERED: NA CHLORIDE 0.9% 2,000 ML ONE (13:45)
--- OUTSIDE RECORDS SUMMARY | 2020-07-21 13:51 | XMS REPORT | Clinical Summary ---
:1990 Author Organization [facility] Address [address] [place] [id number] Care Team Providers Name Role Phone Provider, [...] Not on file Results Not on fileafter 07/21/2019 Advance Directives For more information, please contact: [phone] Type Date Recorded Patient Operations Support Manager Explanati on Advance Directives, Living Will 11/15/2017 5:47 AM and Medical Power of Alterations Manager
--- OUTSIDE RECORDS SUMMARY | 2020-07-21 13:52 | XMS REPORT | Summary of Care ---
:1990 Author Organization [facility] Address [address] [place] [address] Care Team Providers Name Role Phone Christopher Mimi [facility] Primary Care Provid er Reason for Visit Reason Comments New Patient Establish Care Diabetes Type 1 Auth/Cert Status Reason Specialty Diagnoses / Procedures Referred By C ontact Referred To Contact Phlebotomy Diagnoses Type 1 diabetes mellitus with other specified complication Adc Pob Lab Draw Procedures lipid Professional Office Eliel Dawkins [facility] [address], [address] [place] [address] Fax: Encounter Details Date Type Department Care Team Description 06/20/2020 Office Visit [facility] Neyamr Dickinson, Type 1 di abetes mellitus with other specified complication (Primary Dx); Endocrinology- Neuropathy associated with endocrine dis order [address] Dawkins [facility] [address], [address] [place] [id number] [place], [place] [phone] Allergies Active Allergy Reactions Severity Noted Date Comments Penicillins Rash 12/18/2004 Sulfa (Sulfonamide Antibiotics) Unknown - See comments 04/15/2019 documented as of this encounter (statuses as of 07/20/2020) Medications Medication Sig Dispensed Refills Start End Status Date Date Diphenhydramine-Ac Take by mouth. 0 Active etaminophen (TYLENOL PM EXTRA STRENGTH) 25-500 mg Tab insulin degludec inject 22 Units 9 Syringe 3 06/20/20 Active (TRESIBA FLEXTOUCH under the skin 20 U-100) 100 unit/mL daily. (3 mL) InPnIndications: Neuropathy associated with endocrine disorder insulin inject 5-14 45 mL 3 06/20/20 Active lispro-aabc 100 Units under the 20 unit/mL skin 3 (three) InPnIndications: times daily with Neuropathy meals. associated with endocrine disorder gabapentin 300 mg Take 1 capsule 180 capsule 3 06/20/20 Active capsuleIndications by mouth 2 (two) 20 : Type 1 diabetes times daily. mellitus with other specified complication Insulin [place], inject 1 Each 360 Each 3 06/20/20 Active Disposable, (PEN under the skin 20 NEEDLE) 31 gauge x before meals and 3/16" at bedtime. Use NdleIndications: as directed Type 1 diabetes mellitus with other specified complication KETONE URINE TEST use when 12 boxes (3 1 08/28/19 Discontinued IN VITRO STRP fingerstick month supply) 10 020 glucose is >300 INSULIN ASPART 100 inject SC TID QS for 1 01/02/20 Discontinued UNIT/ML SC SOLN before meals per month 10 020 sliding scale max 30 units per day ACCU-CHEK use up to 5 3 months 3 01/02/20 Disconti nued MULTICLIX LANCET lancets per day 10 020 MISC MISC with glucometer ACCU-CHEK GUANAKO IN use up to 5 3 months 3 01/02/20 Discontinued VITRO STRP strips daily 10 020 with glucometer, for uncontrolled diabetes BD INSULIN SYRINGE use for insulin 3 month 3 01/02/2006/20 Discontinued ULT-FINE II 1 ML injection, up to 10 020 31 X 5/16INCH MISC 5 syringes daily SYRG PRECISION XTRA use to test 100 6 01/02/20 Dis continued TEST IN VITRO STRP blood sugar and 10 020 ketones insulin glargine inject 0.25 mL qs for 3 02/10/20 Discontinued (LANTUS U-100) 100 under the skin 3months 10 020 unit/mL injection every morning. simvastatin Take 1 Tab by 30 3 03/23/20 Disc ontinued (ZOCOR) 40 mg mouth at 10 020 tabletIndications: bedtime. Mixed hyperlipidemia insulin degludec inject under 0 Discontinued (TRESIBA FLEXTOUCH the skin. 020 ( Reorder) U-100) 100 unit/mL (3 mL) InPn insulin inject under 0 Discon tinued lispro-aabc 100 the skin. 020 (Reo rder) unit/mL InPn gabapentin 100 mg Take 100 mg by 0 Discontinued capsule mouth 3 (three) 020 times daily. blood sugar Use as directed 3 Box 3 06/20/20 Di scontinued diagnostic (RELION 20 020 ( Alternate ULTIMA) therapy) stripIndications: Type 1 diabetes mellitus with other specified complication lancets (RELION Use as directed 270 Each 3 06/20/20 Discontinued THIN LANCETS) 26 20 020 (Al ternate gauge therapy) MiscIndications: Type 1 diabetes mellitus with other specified complication documented as of this encounter (statuses as of 07/20/2020) Active Problems Problem Noted Date Hyperglycemia 10/02/2009 Uncontrolled type 1 diabetes mellitus 2009 Overview: ICD10 Diagnosis Term Sand Conditioner Utility 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 Type 1 diabetes mellitus 04/27/2005 Overview: ICD10 Diagnosis Term Sand Conditioner Utility Astigmatism 04/27/2005 Overview: ICD10 Diagnosis Term Sand Conditioner Utility documented as of this encounter (statuses as of 07/20/2020) Resolved Problems Problem Noted Date Resolved Date Fracture of unspecified bones 12/01/2005 06/12/2007 Overview: ICD10 Diagnosis Term Sand Conditioner Utility Other follow-up examination(V67.59) 04/27/200505/16 Adjustment reaction 04/27/2005 07/29/2007 Overview: ICD10 Diagnosis Term Sand Conditioner Utility Problems with learning 04/27/2005 07/29/2007 documented as of this encounter (statuses as of 07/20/2020) Immunizations Name Administration Dates Next Due DTAP [...] with No / Unsure 06/20/2020 10:22 AM CHIEF PASSENGER SHIP STEWARD/STEWARDESS someone who was confirmed or suspected to have Coronavirus / COVID-19? documented as of this encounter Last Filed Vital Signs Vital Sign Reading Time Taken Comments Blood Pressure 97/67 06/20/2020 10:47 AM CHIEF PASSENGER SHIP STEWARD/STEWARDESS Pulse 93 06/20/2020 10:47 AM CHIEF PASSENGER SHIP STEWARD/STEWARDESS Temperature - - Respiratory Rate 16 06/20/2020 10:47 AM CHIEF PASSENGER SHIP STEWARD/STEWARDESS Oxygen Saturation - - Inhaled Oxygen Concentration - - Weight 53.3 kg (117 lb 6.4 oz) 06/20/2020 10:47 AM CHIEF PASSENGER SHIP STEWARD/STEWARDESS Height 149.2 cm (4' 10.75") 06/20/2020 10:47 AM CHIEF PASSENGER SHIP STEWARD/STEWARDESS Body Mass Index 23.91 06/20/2020 10:47 AM CHIEF PASSENGER SHIP STEWARD/STEWARDESS documented in this encounter Patient Instructions Patient InstructionsNeymar Dickinson MD - 06/20/2020 11:00 AM CSTYour hemoglobin A1c is 10.4% Increase Tresiba to 22 units daily. Take Humalog 4 units plus your sliding scale that you have written down with your meals. Continue checking your blood sugars three to four times daily. Work on improving your eating habits. Work with your family to limit the amount of fried and fatty foods in your diet. Increase gabapentin to 300 mg twice daily. F PASSENGER SHIP STEWARD/STEWARDESS documented in this encounter Progress Notes Neymar Dickinson MD - 06/20/2020 11:00 AM CST Chief Complaint Patient presents with New Patient Establish Care Diabetes Type 1 Cristina Wheeler is a 30 year old female here for evaluation of type 1 diabetes. Used to f/u with Dr William 10 years ago. She has seen various doctors (and moved from different clinics) and is moving to re-establish with an information tech. She is on Tresiba 20 units daily and Humalog by sliding scale. Not much exercise. Eating habits are variable. She does visit [employer] for meals. She denies polys and blurred vision; however, she does have paresthesias. She is on gabapentin 100 mg thrice daily. Last Lab Results Health Maintenance Due HGB A1C Date Value 04/15/2019 10.1 % NGSP (H) 07/23/2008 11.1 % (H) POCT HBA1C (%) Date Value 03/23/2010 11.7 (A) Diabetes related Health Maintenance Due Topic Date Due EYE EXAM 2001 FOOT EXAM 2009 HgA1C 10/14/2019 Previous Pneumococcal / Influenza Immunizations Name Date Influenza Virus Vaccine - Whole 06/29/2005 Recent Pupil Personnel Services Director Visits None Recent Ophthalmology Visits None CREATININE Date Value 06/20/2020 0.37 mg/dL (L) 10/05/2009 0.34 MG/DL (L) MICROALB U Date Value 06/20/2020 40 ug/mL 11/25/2008 <2 uG/ML CHOL Date Value 06/20/2020 284 mg/dL (H) 03/23/2010 355 MG/DL (W) TRIG Date Value 06/20/2020 127 mg/dL 03/23/2010 126 MG/DL LDL CHOL Date Value 06/20/2020 209 mg/dL (H) 03/23/2010 267 MG/DL (H) Diabetes Relevant Medication Classes Last refreshed: 06/27/2020 9:49 AM: Prescribed DALIA inhibitor No Last refreshed: 06/27/2020 9:49 AM: Prescribed ARBs No Last refreshed: 06/27/2020 9:49 AM: Prescribed statins No Last refreshed: 06/27/2020 9:49 AM: Prescribed antiplatelets No Last refreshed: 06/27/2020 9:49 AM: Prescribed aspirin No Last refreshed: 06/27/2020 9:49 AM: On Fibrates No Current as of: 06/27/2020 9:49 AM HISTORY Past Medical History: Diagnosis Date Arthritis Asthma Hyperlipidemia Neuropathy Type I diabetes mellitus 1997 Past Surgical History: Procedure Laterality Date ANKLE ORIF Family History Problem Relation Age of Onset Diabetes Mother type II Arthritis Mother Genitourinary () Mother kidney disease, nephrolithiasis Diabetes Father type II Other - see comments Father obesity Psychiatry Brother ADHD Psychiatry Brother Bipolar disorder Psychiatry Brother Asperger's Family Status Relation Name Status Mo Alive Mo Alive Mo (Not Specified) Fa (Not Specified) Fa (Not Specified) Bro (Not Specified) Bro (Not Specified) Bro (Not Specified) Social History Socioeconomic History Marital status: Single Spouse name: Not on file Number of children: Not on file Years of education: Not on file Highest education level: Not on file Occupational History Not on file Social Needs Financial resource strain: Not on file Food insecurity Worry: Not on file Inability: Not on file Transportation needs Medical: Not on file Non-medical: Not on file Tobacco Use Smoking status: Never Smoker Smokeless tobacco: Never Used Substance and Sexual Activity Alcohol use: Yes Comment: Ocassionally Drug use: No Sexual activity: Yes Partners: Male control/protection: None Lifestyle Physical activity Days per week: Not on file Minutes per session: Not on file Stress: Not on file Relationships Social connections Talks on phone: Not on file Gets together: Not on file Attends holiness service: Not on file Active member of club or organization: Not on file Attends meetings of clubs or organizations: Not on file Relationship status: Not on file Intimate partner violence Fear of current or ex partner: Not on file Emotionally abused: Not on file Physically abused: Not on file Forced sexual activity: Not on file Other Topics Concern Service Not Asked Blood Transfusions Not Asked Caffeine Concern Not Asked Occupational Exposure Not Asked Hobby Hazards Not Asked Sleep Concern Not Asked Stress Concern Yes Comment: no current stressors Weight Concern Yes Comment: not concerned about weight Special Diet Yes Comment: low sugar diet Back Care Not Asked Exercise Yes Comment: walking to school Bike Helmet Not Asked Seat Belt Not Asked Self-Exams Not Asked Social History Narrative Lives with and in-laws REVIEW OF SYSTEMS Constitutional: negative Eyes: negative. Neck: negative Cardiovascular: negative. Respiratory: negative. Gastrointestinal: negative. Musculoskeletal: negative. Neuro: as above. Endocrine: negative. PHYSICAL EXAM BP 97/67 (BP Location: Left arm, Patient Position: Sitting, BP CUFF SIZE: Adult Medium) | Pulse 93| Resp 16 | Ht 4' 10.75" (1.492 m) | Wt 117 lb 6.4 oz (53.3 kg) | LMP 05/28/2020 | BMI 23.91 kg/m General: alert, oriented times three, no apparent distress, appearing age appropriate. Eyes: anicteric sclera, pupils are equally round and reactive to light. Neck: neck supple, no adenopathy, no goiter, no bruits Lungs: good diaphragmatic excursion, lungs clear to auscultation bilaterally. Heart: regular rate and rhythm, no murmurs, gallops or rubs. Extremities/Musculoskeletal: no cyanosis, no edema . Sensory exam of the foot is normal. Monofilament exam with sensation Right: 5/5, Left: 5/5. Lesions absent Ulcers Absent Peripheral pulses present 2+. ASSESSMENT/PLAN ICD-10-CM ICD-9-CM 1. Type 1 diabetes mellitus with other specified complication E10.69 250.81 2. Neuropathy associated with endocrine disorder E34.9 355.9 G63 259.9 HbA1c 10.4% Increase Tresiba to 22 units daily Take Humalog 4 units + sliding scale before meals only. Check BG three-four times daily. Lifestyle modifications emphasized. Increase gabapentin to 300 mg twice daily Orders Placed This Encounter Procedures POCT GLUCOSE COMP. METABOLIC PANEL (81149) CBC WITHOUT DIFF LIPID PANEL (54720)(TOTAL CHOLESTEROL, TRIGLYCERIDES, HDL) MICROALBUMIN URINE - SPOT SAMPLE THYROID STIMULATING HORMONE F PASSENGER SHIP STEWARD/STEWARDESS documented in this encounter Plan of Treatment [...] Name Priority Date/Time Associated Diagnosis Comme nts POCT GLUCOSE(AGE Routine 06/20/2020 10:54 Type 1 diabetes Resu lts for this >30DAYS) AM CHIEF PASSENGER SHIP STEWARD/STEWARDESS mellitus with other procedur e are in specified the results complication section. documented in this encounter Results MICROALBUMIN URINE - SPOT SAMPLE (06/20/2020 1:28 PM CHIEF PASSENGER SHIP STEWARD/STEWARDESS) Pathologist Sig nature CREAT U 47.1 mg/dL [facility] MICROALB U 40 0 - 45 ug/mL [facility] MICROAL/CR 85 (H) 0 - 30 mg/g of [facility] creatinine SERVICES Specimen Urine - URINE, CLEAN CATCH Narrative Performed At Normal: <30 mg/g creatinine [facility] Microalbuminuria: 30 - 299 mg/g creatini ne Clinical albuminuria: > 300 mg/g creatinine Performing Organization Address City/State/Zipcode Phone Number [facility] CLIA: [id number] [place] [address] [place] [address] THYROID STIMULATING HORMONE (06/20/2020 1:23 PM CHIEF PASSENGER SHIP STEWARD/STEWARDESS) Pathologist Sig nature TSH 1.39 0.45 - 4.70 mIU/L [facility] Specimen Blood Performing Organization Address City/State/Zipcode Phone Number [facility] CLIA: [id number] [place] [address] LABORATORY [address] [facility] LIPID PANEL (37573)(TOTAL CHOLESTEROL, TRIGLYCERIDES, HDL) (06/20/2020 1:23 PM CHIEF PASSENGER SHIP STEWARD/STEWARDESS) Pathologist Sig nature CHOL 284 (H) 120 - 200 mg/dL [facility] HDL 50 (L) >50 mg/dL [facility] HDLC RATIO 5.7 (H) <=4.5 [facility] TRIG 127 30 - 170 mg/dL [facility] LDL CHOL 209 (H) <=160 mg/dL [facility] VLDL 25 5 - 60 mg/dL [facility] Specimen Blood Performing Organization Address [facility] Phone Number [facility] CLIA: [id number] [place] [address] CBC WITHOUT DIFF (06/20/2020 1:23 PM CHIEF PASSENGER SHIP STEWARD/STEWARDESS) Pathologist Sig nature WBC 5.84 4.30 - 11.10 [facility] 10*3/L [facility] RBC 4.99 3.93 - 5.25 10*6/L [facility] HGB 14.8 11.6 - 15.0 g/dL [facility] HCT 44.5 35.7 - 45.2 % [facility] MCH 29.7 25.9 - 32.8 pg [facility] MCV 89.2 80.6 - 95.5 fL [facility] MCHC 33.3 31.6 - 35.1 g/dL [facility] PLT 255 166 - 358 10*3/L [facility] MPV 11.5 9.5 - 12.9 fL [facility] RDW-CV 12.2 12.0 - 15.5 % [facility] RDW-SD 39.7 39.0 - 49.9 fL [facility] NRBC x10^3 <0.01 10*3/L [facility] NRBC/100 WBC 0.0 0.0 - 10.0 /100 WBCs [facility] IPF % [facility] Specimen Blood Performing Organization Address [facility] Phone Number [facility] CLIA: [id number] [place] [address] COMP. METABOLIC PANEL (01659) (06/20/2020 1:23 PM CHIEF PASSENGER SHIP STEWARD/STEWARDESS) NA 139 135 - 145 [facility] mmol/L [facility] K 4.4 3.5 - 5.0 [facility] mmol/L [facility] CL 104 98 - 108 mmol/L [facility] CO2 TOTAL 27 23 - 31 mmol/L [facility] AGAP 8 2 - 16 [facility] BUN 12 7 - 23 mg/dL [facility] GLUCOSE 141 (H) 70 - 110 mg/dL [facility] CREATININE 0.37 (L) 0.50 - 1.04 [facility] mg/dL [facility] TOTAL BILI 0.5 0.1 - 1.1 mg/dL [facility] CALCIUM 9.7 8.6 - 10.6 [facility] mg/dL [facility] T PROTEIN 7.3 6.3 - 8.2 g/dL [facility] ALBUMIN 4.4 3.5 - 5.0 g/dL [facility] ALK PHOS 65 34 - 122 U/L [facility] ALTv 12 5 - 35 U/L [facility] AST(SGOT) 15 13 - 40 U/L [facility] eGFR Calculation 206.5 mL/min/1.73m2 [facility] ([facility] [place]) eGFR Calculation 250.2 mL/min/1.73m2 [facility] () [facility] Specimen Blood Narrative Performed At Association of Glomerular Filtration Rate (GFR) [facility] and Staging of Kidney Disease* + + +- + | GFR (mL/min/1.73 m2) | With Kidney Damage | Without Kidney Damage + + +- + | >90 | Stage one | Normal + + +- + | 60-89 | Stage two | Decreased GFR + + +- + | 30-59 | Stage three | Stage three + + +- + | 15-29 | Stage four | Stage four + + +- + | <15 (or dialysis) | Stage five | Stage five + + +- + *Each stage assumes the associated GFR level has been in effect for at least three months. Stages 1 to 5, with or without kidney [...] tests). Performing Organization Address City/State/Zipcode Phone Number [facility] CLIA: [id number] [place] [address] POCT GLUCOSE (06/20/2020 10:54 AM CHIEF PASSENGER SHIP STEWARD/STEWARDESS) Pathologist Sig nature POCT Glu (age>30days) 10.4 (A) 70 - 110 mg/dL Specimen Blood - CAPILLARY documented in this encounter Visit Diagnoses Diagnosis Type 1 diabetes mellitus with other spec ified complication - Primary Neuropathy associated with endocrine dis order Mononeuritis of unspecified site documented in this encounter Insurance Payer Benefit Plan / Subscriber ID Effective Dates Phone Addre ss Type Group [facility] MEDICAID OF [id number] 2019-Present [phone] [place] [address] [place] [address] documented as of this encounter
--- OUTSIDE RECORDS SUMMARY | 2020-07-21 13:52 | XMS REPORT | Continuity of Care Document ---
:1990 Author Organization [facility] t Address [address] [place] [address] Care Team Providers Name Role Phone Provider Primary Care Physician Unavailable Alko MILLER, H Attending Clinician Payers Payer Name Policy Type Policy Number Effective Date Expiration Date S ource Problems This patient has no known problems. Allergies, Adverse Reactions, Alerts Allergy Allergy Status Severity Reaction(s) Onset Inactive Treating Comm ents Source Name Type Date Date Clinician Penicill DA Active U 2018-0 [facility] ins 03[facility] [place] [facility] Sulfa DA Active U 2017-0 [facility] (Sulfona 03-21 [place] mide 00:00: d Antibiot 00 Medical [facility]) Center ibuprofe DA Active U 2017-0 [facility] n 03-21 [place] 00:00: d [facility] sulfamet DA Active SV 2017-0 [facility] hoxazole 03-21 [place] 00:[facility]: d [facility] trimetho DA Active SV 2018-0 [facility] prim 03-21 [place] 00:[facility]: d [facility] penicill DA Active U 2018-0 [facility] in G 03-21 [place] 00:[facility]: d [facility] shellfis DA Active SV 2018-0 [facility] h 03-21 [place] derived 00:00: d 00 Medical [place] spinach DA Active [place] [facility] 8 [place] 00:00: d 00 [facility] Ibuprofe Propensi [place] ty to 11-15 [facility] adverse 00:00: st reaction 00 s to drug Sulfa Propensi Active [place] (Sulfona ty to 4 Methodi mide adverse 00:00: st Antibiot reaction 00 ics) s to drug MUSHROOM DA Active [facility] S 10-09 [place] 00:[facility]: d 00 [facility] Social History Social Habit Start Date Stop Date Quantity Comments Source Sex Assigned At [facility] ethodi Tobacco use and 2017-11-15 2017-11-[address] [facility] ethodist exposure 00:00:00 00:00:00 Alcohol intake 2017-11-15 2017-11-15 Current drinker of [place] Scient[employer] 00:00:00 00:00:00 alcohol (finding) Alcohol Comment 2017-11-15 2017-11-[address] [facility] ethodist 00:00:00 00:00:00 Smoking Status Start Date Stop Date Source Never smoker [place] Methodis t Medications This patient has no known medications. Procedures This patient has no known procedures. Encounters Start End Encounter Admission Attending Care Care Encounter Source Date/Time Date/Time Type Type Clinicians Facility Department ID 2020-06-20 2020-06-20 Office ANSON Dickinson [id number] 10:27:33 12:32:24 Visit Neymar Sandoval [id number] [place] [id number] [facility] [id number] [facility] [address] Results This patient has no known results.
--- OUTSIDE RECORDS SUMMARY | 2020-07-21 13:52 | XMS REPORT | Summary of Care ---
:1990 Author Organization [facility] Address [address] [place] [id number] Care Team Providers Name Role Phone Christopher Mimi [facility] Primary Care Provid er Reason for Visit Reason Comments New Patient Establish Care Diabetes Type 1 Auth/Cert Status Reason Specialty Diagnoses / Procedures Referred By C ontact Referred To Contact Phlebotomy Diagnoses Type 1 diabetes mellitus with other specified complication Adc Pob Lab Draw Procedures lipid Professional Office Eliel Dawkins [facility] [address], [address] [place] [address] Fax: Encounter Details Date Type Department Care Team Description 06/20/2020 Office Visit [facility] Neymar Dickinson, Type 1 di abetes mellitus with other specified complication (Primary Dx); Endocrinology- Neuropathy associated with endocrine dis order [address] Dawkins [facility] [address], [address] [place] [address] [place], [place] [phone] Allergies Active Allergy Reactions Severity Noted Date [...] daily. 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 Type 1 diabetes mellitus 04/27/2005 Overview: ICD10 Diagnosis Term Toe Pounder Utility Astigmatism 04/27/2005 Overview: ICD10 Diagnosis Term Toe Pounder Utility documented as of this encounter (statuses as of 07/20/2020) Resolved Problems Problem Noted Date Resolved Date Fracture of unspecified bones 12/01/2005 06/12/2007 Overview: ICD10 Diagnosis Term Toe Pounder Utility Other follow-up examination(V67.59) 04/27/200505/16 Adjustment reaction 04/27/2005 07/29/2007 Overview: ICD10 Diagnosis Term Toe Pounder Utility Problems with learning 04/27/2005 07/29/2007 documented [...] with No / Unsure 06/20/2020 10:22 AM PAYABLE MANAGER someone who was confirmed or suspected to have Coronavirus / COVID-19? documented as of this encounter Last Filed Vital Signs Vital Sign Reading Time Taken Comments Blood Pressure 97/67 06/20/2020 10:47 AM PAYABLE MANAGER Pulse 93 06/20/2020 10:47 AM PAYABLE MANAGER Temperature - - Respiratory Rate 16 06/20/2020 10:47 AM PAYABLE MANAGER Oxygen Saturation - - Inhaled Oxygen Concentration - - Weight 53.3 kg (117 lb 6.4 oz) 06/20/2020 10:47 AM PAYABLE MANAGER Height 149.2 cm (4' 10.75") 06/20/2020 10:47 AM PAYABLE MANAGER Body Mass Index 23.91 06/20/2020 10:47 AM PAYABLE MANAGER documented in this encounter Patient Instructions Patient [...] Increase gabapentin to 300 mg twice daily. BLE MANAGER documented in this encounter Progress Notes Neymar Dcikinson MD - 06/20/2020 11:00 AM CST Chief Complaint Patient presents with New Patient Establish Care Diabetes Type 1 Cristina Wheeler is a 30 year old female here for evaluation of type 1 diabetes. Used to f/u with Dr William 10 years ago. She has seen various doctors (and moved from different clinics) and is moving to re-establish with an stenotype machine operator. She is on Tresiba 20 units daily and Humalog by sliding scale. Not much exercise. Eating habits are variable. She does visit [facility] for meals. She denies polys and blurred [...] Influenza Virus Vaccine - Whole 06/29/2005 Recent Consumer Educator Visits None Recent Ophthalmology Visits None CREATININE [...] file Gets together: Not on file Attends mandaeism service: Not on file Active member of [...] Encounter Procedures POCT GLUCOSE COMP. METABOLIC PANEL (88679) CBC WITHOUT DIFF LIPID PANEL (67436)(TOTAL CHOLESTEROL, TRIGLYCERIDES, HDL) MICROALBUMIN URINE - SPOT SAMPLE THYROID STIMULATING HORMONE BLE MANAGER documented in this encounter Plan of Treatment [...] diabetes Resu lts for this >30DAYS) AM PAYABLE MANAGER mellitus with other procedur e are in specified the results complication section. documented in this encounter Results MICROALBUMIN URINE - SPOT SAMPLE (06/20/2020 1:28 PM PAYABLE MANAGER) Pathologist Sig nature CREAT U 47.1 mg/dL [facility] MICROALB U 40 0 - 45 ug/mL [facility] MICROAL/CR 85 (H) 0 - 30 mg/g of [facility] Specimen Urine - URINE, CLEAN CATCH Narrative Performed At Normal: <30 mg/g creatinine [facility] Microalbuminuria: 30 - 299 mg/g creatini ne Clinical albuminuria: > 300 mg/g creatinine Performing Organization Address City/State/Zipcode Phone Number [facility] CLIA: [id number] [place] [address] [place] [address] THYROID STIMULATING HORMONE (06/20/2020 1:23 PM PAYABLE MANAGER) Pathologist Sig nature TSH 1.39 0.45 - 4.70 mIU/L [facility] Specimen Blood Performing Organization Address City/State/Zipcode Phone Number [facility] CLIA: [id number] [place] [address] LABORATORY [address] [facility] LIPID PANEL (69717)(TOTAL CHOLESTEROL, TRIGLYCERIDES, HDL) (06/20/2020 1:23 PM PAYABLE MANAGER) Pathologist Sig nature CHOL 284 (H) 120 - 200 mg/dL [facility] HDL 50 (L) >50 mg/dL [facility] HDLC RATIO 5.7 (H) <=4.5 [facility] TRIG 127 30 - 170 mg/dL [facility] LDL CHOL 209 (H) <=160 mg/dL [facility] VLDL 25 5 - 60 mg/dL [facility] Specimen Blood Performing Organization Address [facility] Phone Number [facility] CLIA: [id number] [place] [address] CBC WITHOUT DIFF (06/20/2020 1:23 PM PAYABLE MANAGER) Pathologist Sig nature WBC 5.84 4.30 - 11.10 [facility] 10*3/L [facility] RBC 4.99 3.93 - 5.25 10*6/L [facility] HGB 14.8 11.6 - 15.0 g/dL [facility] HCT 44.5 35.7 - 45.2 % [facility] MCH 29.7 25.9 - 32.8 pg [facility] MCV 89.2 80.6 - 95.5 fL [facility] MCHC 33.3 31.6 - 35.1 g/dL [facility] PLT 255 166 - 358 10*3/L [facility] MPV 11.5 9.5 - 12.9 fL [facility] RDW-CV 12.2 12.0 - 15.5 % [facility] RDW-SD 39.7 39.0 - 49.9 fL [facility] NRBC x10^3 <0.01 10*3/L [facility] NRBC/100 WBC 0.0 0.0 - 10.0 /100 WBCs [facility] IPF % [facility] Specimen Blood Performing Organization Address [facility] Phone Number [facility] CLIA: [id number] [place] [address] COMP. METABOLIC PANEL (70777) (06/20/2020 1:23 PM PAYABLE MANAGER) NA 139 135 - 145 [facility] mmol/L [facility] K 4.4 3.5 - 5.0 [facility] mmol/L [facility] CL 104 98 - 108 mmol/L [facility] CO2 TOTAL 27 23 - 31 mmol/L [facility] AGAP 8 2 - 16 [facility] BUN 12 7 - 23 mg/dL [facility] GLUCOSE 141 (H) 70 - 110 mg/dL [facility] CREATININE 0.37 (L) 0.50 - 1.04 [facility] mg/dL [facility] TOTAL BILI 0.5 0.1 - 1.1 mg/dL [facility] CALCIUM 9.7 8.6 - 10.6 [facility] mg/dL [facility] T PROTEIN 7.3 6.3 - 8.2 g/dL [facility] ALBUMIN 4.4 3.5 - 5.0 g/dL [facility] ALK PHOS 65 34 - 122 U/L [facility] ALTv 12 5 - 35 U/L [facility] AST(SGOT) 15 13 - 40 U/L [facility] eGFR Calculation 206.5 mL/min/1.73m2 [facility] [place]) eGFR Calculation 250.2 mL/min/1.73m2 [facility] () [facility] Specimen Blood Narrative Performed At Association of Glomerular Filtration Rate (GFR) [facility] and Staging of Kidney Disease* [...] tests). 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
[2020-07-21] MEDS ORDERED: SODIUM BICARB 50 MEQ/50ML VIAL ONE ×3 (14:36→20:34)
[2020-07-21] MEDS ORDERED: INSULIN -REGULAR HUMAN 50 UNIT/0.5 ML ML ONE (14:36)
[2020-07-21 14:52] LABS: Absolute Lymphocytes (CBC) 1.2 K/uL (0.7-4.9); Basophils % 0.8 % (0-1.3); Hematocrit 41.5 % (36.0-45.0); MPV 9.4 fL (7.6-11.3); RBC Red Blood Cell Count 4.42 M/uL (3.86-4.86)
[2020-07-21] MEDS ORDERED: INSULIN -REGULAR HUMAN 100 UNIT in NA CHLORIDE 0.9% 100 ML IV SCH (15:00)
[2020-07-21 15:13] LABS: BUN Blood Urea Nitrogen 16 mg/dL (7-18); Glucose Level 481 mg/dL (74-106); Potassium 3.1 mmol/L (3.5-5.1); Sodium Level 143 mmol/L (136-145)
[2020-07-21 15:15] LABS: Bicarbonate 5 mmol/L (21-32)
--- NOTE | 2020-07-21 15:15 | ER ---
Nurse's Notes [facility] Name: Cristina Wheeler Age: 30 yrs Sex: Female : 1990 Arrival Date: 07/21/2020 Time: 13:20 Bed 11 Private MD: Diagnosis: Other specified diabetes mellitus with ketoacidosis;Dehydration;Altered mental status, unspecified Presentation: 07/21 13:21 Chief complaint: EMS states: MINIMALLY RESPONSIVE AND HYPERGLYCEMIC. Coronavirus bp screen: At this time, the client does not indicate any symptoms associated with coronavirus-19. Ebola Screen: No symptoms or risks identified at this time. Initial Sepsis Screen: Does the patient meet any 2 criteria? Altered Mental Status. No. Patient's initial sepsis screen is negative. Does the patient have a suspected source of infection? No. Patient's initial sepsis screen is negative. Risk Assessment: Do you want to hurt yourself or someone else? Patient reports no desire to harm self or others. Onset of symptoms is unknown. Care prior to arrival: Glucose check: 377. 13:21 Method Of Arrival: EMS: [facility] bp 13:21 Acuity: KM 2 bp Triage Assessment: 13:24 General: Appears distressed, Behavior is agitated, anxious. Pain: Unable to use pain bp scale. Does not appear to understand pain scale. EENT: No deficits noted. Neuro: Level of Consciousness is Oriented to none. Cardiovascular: Rhythm is sinus rhythm. Respiratory: No deficits noted. GI: No signs and/or symptoms were reported involving the gastrointestinal system. : No signs and/or symptoms were reported regarding the genitourinary system. Derm: No deficits noted. Musculoskeletal: No deficits noted. Historical: - Allergies: 13:24 flu medication; bp 13:24 PENICILLINS; bp 13:24 Spinach; bp 13:24 Sulfa (Sulfonamide Antibiotics); bp - Home Meds: 13:24 Tresiba FlexTouch U-100 100 unit/mL (3 mL) subcutaneous inpn [Active]; gabapentin Oral bp [Active]; - PMHx: 13:24 neuropathy; Diabetes - IDDM; Arthritis; bp - Immunization history:: Adult Immunizations unknown. - Social history:: Smoking status: Patient denies any tobacco usage or history of. - Family history:: not pertinent. - Hospitalizations: : No recent hospitalization is reported. Screenin:30 Abuse screen: Denies threats or abuse. Denies injuries from another. Nutritional bp screening: No deficits noted. Tuberculosis screening: No symptoms or risk factors identified. Fall Risk None identified. Assessment: 13:30 General: SEE TRIAGE NOTE. bp 14:00 Reassessment: UNABLE TO PLACE PIV OR U/S LINE. MD AT B/S. bp 14:15 Reassessment: No changes from previously documented assessment. Patient and/or family bp updated on plan of care and expected duration. Pain level reassessed. EMERGENT R FEM CVC PLACED. PT ALTERED, NOT CONSENTABLE. 15:00 Reassessment: No changes from previously documented assessment. Patient and/or family bp updated on plan of care and expected duration. Pain level reassessed. PT RESTING QUIETLY. 16:00 Reassessment: PT OOB DESPITE STAFF REDIRECTION. PT MENTATION REMAINS AOx0, REQUIRING bp PHYSICAL REDIRECTION TO BED. MD NOTIFED. 17:00 Reassessment: No changes from previously documented assessment. Patient and/or family bp updated on plan of care and expected duration. Pain level reassessed. INSULIN GTT REMAINS AT 5 UNIT/HR. PT SOMNOLENT, AOx0, NO CHANGE IN MENTATION. 19:25 Reassessment: No changes from previously documented assessment. Patient and/or family ll2 updated on plan of care and expected duration. Pain level reassessed. received pt as non responsive, pt is awake, but non communicative. 20:30 Reassessment: No changes from previously documented assessment. ll2 Vital Signs: 13:21 BP 126 / 76; Pulse 122; Resp 32; Temp 97; Pulse Ox 100% ; bp 14:00 BP 111 / 79; Pulse 121; Resp 26; Pulse Ox 100% ; jl7 15:05 BP 111 / 58; Pulse 123; Resp 23; Pulse Ox 100% ; jl7 16:00 BP 123 / 83; Pulse 133; Resp 26; Pulse Ox 100% ; bp 17:00 BP 101 / 59; Pulse 131; Resp 16; Pulse Ox 100% ; bp NIH Stroke Scale Scores: 13:24 NIHSS Score: 8 bp ED Course: 13:20 Patient arrived in ED. bp 13:21 Jesus Antunez MD is Attending Physician. rn 13:23 Triage completed. bp 13:27 Arm band placed on. bp 13:30 Patient has correct armband on for positive identification. Bed in low position. Call bp light in reach. Side rails up X2. 13:37 EKG done, by ED staff, reviewed by Jesus Antunez MD. em1 14:13 Arnold Boston, RN is Primary Nurse. bp 14:15 Assisted provider with central line placement. Set up central line tray. Triple lumen bp line placed in right femoral. Line placed by Jesus Antunez MD Placement verified by blood return, Dressed with Tegaderm, Blood was collected. Patient tolerated well. Before procedure, did Practitioner(s) obtain informed consent? No. Patient \T\ family education about procedure, CLABSI prevention and S/S of infection? No. Time-out/Briefing performed prior to start of procedure? Yes. Was handwashing/sanitizing done immediately prior to procedure? Yes. Was patient positioned to in a way to prevent air embolism? Yes. Was procedure site sterilized? Yes, with chlorhexidine. Was the site allowed to dry? Yes. Was local anesthetic and/or sedation utilized? Yes. During the procedure, did the Practitioner(s) maintain a sterile field? Yes. Were unused ports clamped during insertion? Yes. Was a 2nd qualified MD obtained after 3 unsuccessful insertion attempts? N/A. Was blood aspirated from each lumen? Yes. After the procedure, did the Practitioner(s) clean the site and apply a sterile dressing? Yes. 15:11 Abimael Navarro is Hospitalizing Provider. rn 15:23 CBC with Diff Sent. bp 15:23 Basic Metabolic Panel Sent. bp 15:23 ABG Sent. bp 15:23 Ketone, Serum Sent. bp 23:13 Patient admitted, IV remains in place. mg2 Administered Medications: 14:29 Drug: Insulin Regular Human 10 units {Co-Signature: jl7 (David Frank RN).} Route: IVP; bp Site: right femoral; 15:24 Follow up: Response: No adverse reaction bp 14:30 Drug: NS 0.9% 1000 ml Route: IV; Rate: 1000 ml; Site: right femoral; bp 16:09 Follow up: IV Status: Completed infusion; IV Intake: 1000ml bp 14:30 Drug: NS 0.9% 1000 ml Route: IV; Rate: 1000 ml; Site: right femoral; bp 14:30 Drug: Sodium Bicarbonate 1 amp Route: IVP; Site: right femoral; bp 15:23 Follow up: Response: No adverse reaction bp 15:15 Drug: Insulin Drip - (Insulin Regular Human 100 units, NS 0.9% 100 ml) {Co-Signature: bp jl7 (David Frank RN).} Route: IV; Rate: calculated rate; Site: right femoral; 15:21 Drug: Sodium Bicarbonate 1 amp Route: IVP; Site: right femoral; bp 15:24 Follow up: Response: No adverse reaction bp 16:00 Drug: Ativan 1 mg Route: IVP; Site: right femoral; bp 17:32 Follow up: Response: No adverse reaction bp Intake: 16:09 IV: 1000ml; Total: 1000ml. bp Outcome: 15:11 Decision to Hospitalize by Provider. rn 19:00 Admitted to ER Hold. Please see [facility] for further documentation. mg2 23:13 Condition: stable mg2 23:13 Admitted to ICU accompanied by nurse, accompanied by tech, room er icu 11, on monitor, mg2 with chart, Report called to YOAN Menchaca 23:13 Instructed on the need for admit. 23:13 Demonstrated understanding of instructions. 23:35 Patient left the ED. dw NIH Stroke Scale - NIH Stroke Score Date: 07/21/2020 Time: 13:24 Total Score = 8 1a. Level of Consciousness (LOC) - 1(Not Alert) 1b. Level of Consciousness (LOC) (Year \T\ Age) - 2(Neither) 1c. LOC Commands (Open \T\ Closes Eyes/Microfilm Mounter) - 2(Neither) 2. Best Gaze (Lateral Gaze Paresis) - 0(Normal) 3. Visual Field Loss - 0(No visual loss) 4. Facial Palsy - 0(Normal) 5a. Left Arm: Motor (10-second hold) - 0(No drift) 5b. Right Arm: Motor (10-second hold) - 0(No drift) 6a. Left Leg: Motor (5-second hold - always test supine) - 0(No drift) 6b. Right Leg: Motor (5-second hold - always test supine) - 0(No drift) 7. Limb Ataxia (finger/nose \T\ heel/oviedo - test with eyes open) - 0(Absent) 8. Sensory Loss (pinprick arms/legs/face) - 0(Normal) 9. Best Language: Aphasia (description/naming/reading) - 3(Mute, global aphasia) 10. Dysarthria (speech clarity - read or repeat words) - 0(Normal) 11. Extinction and Inattention (visual/tactile/auditory/spatial/personal) - 0(No abnormality) Initials: bp Signatures: Whit Han, RN RN dw Jesus Antunez MD MD rn Martinez, Eric em1 David Frank RN RN jl7 Arnold Boston RN RN Loco Haile RN RN [facility] Anastasiia Lindsey RN RN 2 David dye7 Corrections: (The following items were deleted from the chart) 15:27 15:05 BP 111 / 58; Pulse 123bpm; Resp 19bpm; Pulse Ox 100%; jl7 jl7
--- NOTE | 2020-07-21 15:16 | EDPHYS ---
Physician Documentation [facility] Name: Cristina Wheeler Age: 30 yrs Sex: Female : 1990 Arrival Date: 07/21/2020 Time: 13:20 Bed 11 Private MD: ED Physician Jesus Antunez HPI: 07/21 13:36 This 30 yrs old Female presents to ER via EMS with complaints of Altered rn Mental Status. 13:36 The patient presents with decreased responsiveness. Onset: The symptoms/episode rn began/occurred at an unknown time. Possible causes: unknown. Current symptoms: In the emergency department the patient's symptoms are unchanged from the initial presentation. The patient has experienced similar episodes in the past. Per EMS report, decreased responsiveness, + possible DKA. No fever. Seen here recently for sore throat. Patient not really cooperative. Only says "drink". . Historical: - Allergies: 13:24 flu medication; bp 13:24 PENICILLINS; bp 13:24 Spinach; bp 13:24 Sulfa (Sulfonamide Antibiotics); bp - Home Meds: 13:24 Tresiba FlexTouch U-100 100 unit/mL (3 mL) subcutaneous inpn [Active]; gabapentin Oral bp [Active]; - PMHx: 13:24 neuropathy; Diabetes - IDDM; Arthritis; bp - Immunization history:: Adult Immunizations unknown. - Social history:: Smoking status: Patient denies any tobacco usage or history of. - Family history:: not pertinent. - Hospitalizations: : No recent hospitalization is reported. ROS: 13:36 Unable to obtain ROS due to altered mental status. rn Exam: 13:36 Constitutional: Thin, pale female Head/Face: Normocephalic, atraumatic. Eyes: Pupils rn equal round and reactive to light, extra-ocular motions intact. Lids and lashes normal. Conjunctiva and sclera are non-icteric and not injected. Cornea within normal limits. Periorbital areas with no swelling, redness, or edema. ENT: dry MM Neck: Trachea midline, no thyromegaly or masses palpated, and no cervical lymphadenopathy. Supple, full range of motion without nuchal rigidity, or vertebral point tenderness. No Meningismus. Cardiovascular: tachycardic, regular Respiratory: + tachypnea with deep breathing Abdomen/GI: soft, non-tender Skin: Warm, dry MS/ Extremity: Pulses equal, no cyanosis. Neuro: Somnolent, moves all 4 extremities, localizes pain, says "drink" repeatedly Vital Signs: 13:21 BP 126 / 76; Pulse 122; Resp 32; Temp 97; Pulse Ox 100% ; bp 14:00 BP 111 / 79; Pulse 121; Resp 26; Pulse Ox 100% ; jl7 15:05 BP 111 / 58; Pulse 123; Resp 23; Pulse Ox 100% ; jl7 16:00 BP 123 / 83; Pulse 133; Resp 26; Pulse Ox 100% ; bp 17:00 BP 101 / 59; Pulse 131; Resp 16; Pulse Ox 100% ; bp NIH Stroke Scale Scores: 13:24 NIHSS Score: 8 bp Procedures: 14:12 Central Line: the site was prepped with Betadine, in sterile fashion, a triple lumen rn catheter was inserted, in the right femoral vein, in 1 attempts. placement was verified, by blood return, the site was dressed with Tegaderm, using sterile technique, the patient tolerated the procedure, well. MDM: 13:25 Patient medically screened. rn 15:09 Differential Diagnosis: electrolyte abnormality, UTI, volume depletion, DKA, rn dehydration, hyperglycemia. Data reviewed: vital signs, nurses notes, lab test result(s), EKG, radiologic studies, plain films, and as a result, I will admit patient. Counseling: I had a detailed discussion with the patient and/or guardian regarding: the historical points, exam findings, and any diagnostic results supporting the discharge/admit diagnosis, lab results, radiology results, the need for further work-up and treatment in the hospital. Response to treatment: the patient's symptoms have mildly improved after treatment, and as a result, I will admit patient. Admission orders: after a detailed discussion of the patient's condition and case, the admit orders are written by me. ED course: Pt with DKA, covid and flu sent, pH 6.9, bicarb 2, central line placed, admitted to Dr. navarro. . 07/21 13:24 Order name: CBC with Diff rn 07/21 13:24 Order name: Basic Metabolic Panel rn 07/21 13:24 Order name: Urine Microscopic Only rn 07/21 13:24 Order name: ABG rn 07/21 13:24 Order name: Ketone, Serum rn 07/21 14:01 Order name: Glucose, Ancillary Testing; Complete Time: 14:35 EDMS 07/21 14:58 Order name: Acetone Level; Complete Time: 17:41 EDMS 07/21 15:04 Order name: CBC with Automated Diff; Complete Time: 17:41 EDMS 07/21 15:05 Order name: COVID-19 iw 07/21 15:09 Order name: Flu rn 07/21 15:16 Order name: Basic Metabolic Panel; Complete Time: 17:41 EDMS 07/21 15:33 Order name: CORONAVIRUS EDME 07/21 15:53 Order name: Influenza Screen (A ; Complete Time: 17:41 EDMS 07/21 16:04 Order name: Glucose, Ancillary Testing; Complete Time: 17:41 EDMS 07/21 16:14 Order name: CBC Smear Scan; Complete Time: 17:41 EDMS 07/21 16:22 Order name: SARS-COV-2 RT PCR; Complete Time: 17:41 EDMS 07/21 17:04 Order name: Urine Dipstick--Ancillary (enter results) 07/21 17:04 Order name: Urine --Ancillary (enter results) 07/21 17:12 Order name: Urine Microscopic Only; Complete Time: 17:41 EDMS 07/21 17:15 Order name: Urine --Ancillary; Complete Time: 17:41 EDMS 07/21 17:15 Order name: Urine Dipstick-Ancillary; Complete Time: 17:41 EDMS 07/21 17:38 Order name: Glucose, Ancillary Testing; Complete Time: 17:41 EDME 07/21 19:11 Order name: Glucose, Ancillary Testing EDME 07/21 19:44 Order name: Basic Metabolic Panel EDME 07/21 19:45 Order name: Test Serum, Qualitat EDME 07/21 19:47 Order name: ABG Arterial Blood Gas EDME 07/21 20:00 Order name: Glucose, Ancillary Testing EDME 07/21 21:11 Order name: Glucose, Ancillary Testing EDME 07/21 21:56 Order name: Glucose, Ancillary Testing EDME 07/21 23:03 Order name: Glucose, Ancillary Testing EDME 07/21 13:24 Order name: IV Start; Complete Time: 14:31 rn 07/21 13:24 Order name: Urine Test (obtain specimen); Complete Time: 20:51 rn 07/21 13:24 Order name: Urine Dipstick-Ancillary (obtain specimen); Complete Time: 22:17 rn 07/21 13:24 Order name: Glucose Level; Complete Time: 14:32 rn 07/21 13:24 Order name: XRAY Chest (1 view) rn 07/21 13:25 Order name: EKG; Complete Time: 14:46 rn 07/21 13:25 Order name: EKG - Nurse/Tech; Complete Time: 13:37 rn 07/21 15:36 Order name: RAD; Complete Time: 17:41 EDMS Administered Medications: 14:29 Drug: Insulin Regular Human 10 units {Co-Signature: jl7 (David Frank RN).} Route: IVP; bp Site: right femoral; 15:24 Follow up: Response: No adverse reaction bp 14:30 Drug: NS 0.9% 1000 ml Route: IV; Rate: 1000 ml; Site: right femoral; bp 16:09 Follow up: IV Status: Completed infusion; IV Intake: 1000ml bp 14:30 Drug: NS 0.9% 1000 ml Route: IV; Rate: 1000 ml; Site: right femoral; bp 14:30 Drug: Sodium Bicarbonate 1 amp Route: IVP; Site: right femoral; bp 15:23 Follow up: Response: No adverse reaction bp 15:15 Drug: Insulin Drip - (Insulin Regular Human 100 units, NS 0.9% 100 ml) {Co-Signature: bp jl7 (David Frank RN).} Route: IV; Rate: calculated rate; Site: right femoral; 15:21 Drug: Sodium Bicarbonate 1 amp Route: IVP; Site: right femoral; bp 15:24 Follow up: Response: No adverse reaction bp 16:00 Drug: Ativan 1 mg Route: IVP; Site: right femoral; bp 17:32 Follow up: Response: No adverse reaction bp Disposition: 15:09 Critical Care:. rn Disposition: 07/21/20 15:11 Hospitalization ordered by Abimael Navarro for Inpatient Admission. Preliminary diagnosis are Other specified diabetes mellitus with ketoacidosis, Dehydration, Altered mental status, unspecified. - Bed requested for [facility] ER HOLD. - Status is Inpatient Admission. dw - Condition is Serious. - Problem is new. - Symptoms have improved. Critical care time excluding procedures: 15:09 Critical care time: Bedside Care: 30 minutes, Consultation: 5 minutes. Total time: 35 rn minutes NIH Stroke Scale - NIH Stroke Score Date: 07/21/2020 Time: 13:24 Total Score = 8 1a. Level of Consciousness (LOC) - 1(Not Alert) 1b. Level of Consciousness (LOC) (Year \\T\\ Age) - 2(Neither) 1c. LOC Commands (Open \\T\\ Closes Eyes/Spring Layer) - 2(Neither) 2. Best Gaze (Lateral Gaze Paresis) - 0(Normal) 3. Visual Field Loss - 0(No visual loss) 4. Facial Palsy - 0(Normal) 5a. Left Arm: Motor (10-second hold) - 0(No drift) 5b. Right Arm: Motor (10-second hold) - 0(No drift) 6a. Left Leg: Motor (5-second hold - always test supine) - 0(No drift) 6b. Right Leg: Motor (5-second hold - always test supine) - 0(No drift) 7. Limb Ataxia (finger/nose \\T\\ heel/oviedo - test with eyes open) - 0(Absent) 8. Sensory Loss (pinprick arms/legs/face) - 0(Normal) 9. Best Language: Aphasia (description/naming/reading) - 3(Mute, global aphasia) 10. Dysarthria (speech clarity - read or repeat words) - 0(Normal) 11. Extinction and Inattention (visual/tactile/auditory/spatial/personal) - 0(No abnormality) Initials: bp Signatures: Dispatcher [employer] EDDayanara Damon RN RN dm5 Whit Han RN RN dw Nieto, Roman, MD MD rn Peltier, Brian, RN RN bp David Frank RN jl7 Corrections: (The following items were deleted from the chart) 18:24 15:11 Hospitalization Ordered by Abimael Navarro for Inpatient Admission. dm5 Preliminary diagnosis is Other specified diabetes mellitus with ketoacidosis; Dehydration; Altered mental status, unspecified. Bed requested for Intensive Care Unit. Status is Inpatient Admission. Condition is Serious. Problem is new. Symptoms have improved. rn 23:35 18:24 07/21/2020 15:11 Hospitalization Ordered by Abimael Navarro for Inpatient Admission. Preliminary diagnosis is Other specified diabetes mellitus with ketoacidosis; Dehydration; Altered mental status, unspecified. Bed requested for [facility] ER HOLD. Status is Inpatient Admission. Condition is Serious. Problem is new. Symptoms have improved. dm5
--- NOTE | 2020-07-21 15:23 | RAD REPORT ---
EXAM DESCRIPTION: Rafael Single View07/21/2020 2:28 pm CLINICAL HISTORY: Shortness of breath COMPARISON: 2019 FINDINGS: The lungs appear clear of acute infiltrate. The heart is normal size IMPRESSION: No acute abnormalities displayed
[2020-07-21 16:08] LABS: Platelet Estimate ADEQ; White Blood Cell Scan OK (OK)
[2020-07-21 16:09] LABS: Blood Morphology Comment NOTED (NOT SEEN)
[2020-07-21 16:10] LABS: Anisocytosis 1+; Poikilocytosis 1+
--- NOTE | 2020-07-21 16:17 | P.HP ---
Certification for Inpatient Patient admitted to: Inpatient With expected LOS: >2 Midnights Practitioner: I am a practitioner with admitting privileges, knowledge of patient current condition, hospital course, and medical plan of care. Services: Services provided to patient in accordance with Admission requirements found in Title 42 Section 412.3 of the Code of Federal Regulations Patient History Date of Service: 07/21/20 Reason for admission: Altered mental status History of Present Illness: 30-year-old woman with a history of insulin-dependent diabetes mellitus was brought to the emergency department with altered mental status. Patient was apparently in the ED 2 days ago for sore throat. She was diagnosed with acute pharyngitis and discharged home. Today patient noted to be in DKA with severe acidemia. Her blood glucose level is up to 400. Patient is altered and could not provide any history. She is afebrile, has severe leukocytosis, tachycardia and meet criteria for sepsis. She is not hypotensive. Patient is given IV fluid bolus, IV bicarb for severe acidemia, and started on insulin drip. Patient is admitted for further management of the DKA. Allergies ibuprofen Adverse Reaction (Verified 10/29/18 09:02) Nausea/Vomiting oseltamivir [From Tamiflu] Adverse Reaction (Verified 10/29/18 09:02) Hives/Rash Penicillins Adverse Reaction (Verified 10/29/18 09:02) Itching/Hives/Rash Sulfa (Sulfonamide Antibiotics) Adverse Reaction (Verified 10/29/18 09:02) Itching/Hives/Rash Home Medications: Insulin Glargine Human [Lantus*] 15 unit SQ BID #1 vial 10/06/18 Gabapentin 600 mg PO TID 10/29/18 Insulin -Regular Human [Novolin -R*] See Protocol SQ ACHS #1 vial 11/01/18 - Past Medical/Surgical History Diabetic: Yes -: diabetes mellitus I -: neuropathy -: ankle sx - Family History Father -: Diabetes - Social History Alcohol use: Yes CD- Drugs: No Caffeine use: Yes Review of Systems is unable to be obtained Physical Examination - Physical Exam General: Other (Obtunded) HEENT: PERRLA, Sclerae nonicteric Neck: Supple, JVD not distended Respiratory: Clear to auscultation bilaterally, Normal air movement Cardiovascular: No edema, Normal S1 S2, Other (Tachycardia) Capillary refill: <2 Seconds Gastrointestinal: Normal bowel sounds, Soft and benign, Non-distended, No tenderness Musculoskeletal: No swelling, No tenderness Integumentary: No rashes, No erythema Neurological: Other (She moves all extremities spontaneously) - Studies Laboratory Data (last 24 hrs) 07/21/20 14:40: Sodium 143, Potassium 3.1 L, BUN 16, Creatinine 1.03, Glucose 481 H* 07/21/20 14:40: WBC 24.4 H* D, Hgb 13.1, Hct 41.5, Plt Count 343 D Microbiology Data (last 24 hrs): 07/21/20 15:09 Nasopharnyx Influenza Type A Antigen Screen - Final 07/21/20 15:09 Nasopharnyx Influenza Type B Antigen Screen - Final Assessment and Plan - Problems (Diagnosis) (1) Sepsis Current Visit: Yes Status: Acute (2) Metabolic acidosis Current Visit: Yes Status: Acute (3) Hypokalemia Current Visit: Yes Status: Acute - Plan Admit to ICU. Continue DKA protocol initiated in the ED with insulin drip. Patient given 1 amp IV sodium bicarb. Will repeat 1 amp of sodium bicarb. Start bicarb drip with IV fluid. IV potassium repletion. Monitor BMP per DKA protocol. ABG q.6 hr to follow acidemia. Obtain test. Start IV Rocephin given sepsis. Follow blood cultures UA is pending Monitor CBC. - Advance Directives Does patient have a Living Will: No Does patient have a Durable POA for Healthcare: No Critical Care: Yes (Critical care time spent managing DKA with severe electrolyte abnormalities) Time Spent Managing Pts Care (In Minutes): 68
[2020-07-21] MEDS ORDERED: LORazepam 2 MG/ML VIAL ONE ×2 (17:03→22:58)
[2020-07-21 17:11] LABS: Urine Bacteria <20 /HPF (<20); Urine Mucus 2+ /HPF (NONE SEEN)
[2020-07-21 17:12] LABS: Urine Blood 3+ (NEG); Urine Glucose 2+ (NEG); Urine Protein 2+ (NEG)
[2020-07-21] MEDS ORDERED: POTASSIUM CL IV SCH ×3 (19:00)
[2020-07-21] MEDS ORDERED: WATER FOR INJ STERILE IV SCH ×3 (19:00)
[2020-07-21] MEDS: CEFTRIAXONE/SWI 1gm 1 GM/10 ML SYR IVP SCH (19:00)
[2020-07-21] MEDS ORDERED: SODIUM BICARB 50 MEQ/50ML VIAL IV ONE (19:00)
[2020-07-21] MEDS: NA CHLORIDE 0.9% 1,000 ML IV SCH ×2 (19:00→19:55)
[2020-07-21] MEDS ORDERED: NA BICARB IV SCH ×3 (19:00)
[2020-07-21 19:32] LABS: BUN Blood Urea Nitrogen 14 mg/dL (7-18); Bicarbonate 6 mmol/L (21-32); Glucose Level 184 mg/dL (74-106); Sodium Level 151 mmol/L (136-145)
[2020-07-21] MEDS ORDERED: CEFTRIAXONE/SWI 1gm 1 GM/10 ML SYR ONE (19:38)
[2020-07-21 19:43] LABS: Arterial Blood Carboxyhemoglob 1.7 % (0-1.5); Blood Gas Oxyhemoglobin 95.2 % (94-97); Blood O2 Saturation 97.9 % (92-98.5)
[2020-07-21 19:43] LABS: Potassium 2.9 mmol/L (3.5-5.1)
[2020-07-21] MEDS ORDERED: ENOXAPARIN 40 MG/0.4 ML SQ ONE (20:30)
[2020-07-21] MEDS ORDERED: D5W 1,000 ML IV ONE (20:34)
[2020-07-21] MEDS ORDERED: KCL 20 MEQ/100 mL IVPB 40 MEQ/200 ML BAG IV ONE (20:35)
[2020-07-21 20:48] VITALS: BMI 19.5
[2020-07-21] MEDS: ENOXAPARIN 40 MG/0.4 ML SQ SCH (20:50)
[2020-07-21] MEDS: D5W IV SCH ×3 (20:50)
[2020-07-21] MEDS: POTASSIUM CL IV SCH ×3 (20:50)
[2020-07-21] MEDS: NA BICARB IV SCH ×3 (20:50)
[2020-07-21] MEDS: POTASSIUM CL 40 MEQ in NA CHLORIDE 0.9% 500 ML IV SCH (21:00)
[2020-07-21] MEDS ORDERED: KCL 20 MEQ/100 mL IVPB 20 MEQ/100 ML BAG IV ONE ×2 (21:12→23:23)
[2020-07-21] MEDS ORDERED: ACETAMINOPHEN 500 MG TAB PO ONE (21:59)
[2020-07-21] MEDS ORDERED: ACETAMINOPHEN 500 MG TAB ONE (22:16)
[2020-07-21] MEDS ORDERED: LORazepam 2 MG/ML VIAL IV ONE (22:44)
[2020-07-21 23:46] LABS: Potassium 3.1 mmol/L (3.5-5.1)
[2020-07-22] MEDS: POTASSIUM CL 40 MEQ in NA CHLORIDE 0.9% 500 ML IV SCH (01:00)
[2020-07-22 01:34] LABS: Arterial Blood Carboxyhemoglob 2.2 % (0-1.5); Blood Gas Oxyhemoglobin 95.4 % (94-97); Blood O2 Saturation 98.6 % (92-98.5)
[2020-07-22] MEDS ORDERED: POTASSIUM PHOS IN 0.9 % NACL 15 MMOL/250 ML BAG IV ONE ×5 (03:47→20:53)
[2020-07-22 05:35] LABS: Potassium 3.4 mmol/L (3.5-5.1)
[2020-07-22] MEDS: NA BICARB IV SCH ×9 (05:58→15:52)
[2020-07-22] MEDS: POTASSIUM CL IV SCH ×13 (05:58→22:27)
[2020-07-22] MEDS: D5W IV SCH ×9 (05:58→15:52)
[2020-07-22 06:07] LABS: Phosphorus 0.6 mg/dL (2.5-4.9)
[2020-07-22 07:23] LABS: Absolute Lymphocytes (CBC) 0.3 K/uL (0.7-4.9); Basophils % 0.3 % (0-1.3); Hematocrit 32.6 % (36.0-45.0); MPV 8.6 fL (7.6-11.3); RBC Red Blood Cell Count 3.77 M/uL (3.86-4.86)
[2020-07-22 07:30] LABS: Magnesium 1.7 mg/dL (1.8-2.4)
[2020-07-22 07:48] LABS: Phosphorus 0.8 mg/dL (2.5-4.9)
[2020-07-22] MEDS ORDERED: MAGNESIUM SULFATE 1 gm IVPB 1 GM/100 ML BAG IV ONE (07:58)
[2020-07-22] MEDS ORDERED: KCL 20 MEQ/100 mL IVPB 20 MEQ/100 ML BAG IV SCH ×2 (09:00→21:00)
[2020-07-22] MEDS: CEFTRIAXONE/SWI 1gm 1 GM/10 ML SYR IVP SCH (10:00)
[2020-07-22] MEDS: ENOXAPARIN 40 MG/0.4 ML SQ SCH (10:00)
[2020-07-22] MEDS ORDERED: KCL 20 MEQ/100 mL IVPB 20 MEQ/100 ML BAG IV ONE ×4 (10:11→21:10)
[2020-07-22] MEDS ORDERED: CEFTRIAXONE/SWI 1gm 1 GM/10 ML SYR ONE (10:11)
[2020-07-22] MEDS ORDERED: ENOXAPARIN 40 MG/0.4 ML SQ ONE (10:11)
[2020-07-22 11:43] LABS: Potassium 3.1 mmol/L (3.5-5.1)
--- NOTE | 2020-07-22 12:03 | EKG ---
Test Date: 2020-07-21 Test Time: 13:34:17 Foster Care Worker: LUZ MARIA MEASUREMENT RESULTS: Intervals: Rate: 121 PA: 112 QRSD: 84 QT: 438 QTc: 621 [place]: P: 71 PA: 112 QRS: 90 T: 45 INTERPRETIVE STATEMENTS: Sinus tachycardia Rightward axis Borderline ECG Compared to ECG 08/08/2019 02:57:46 Right-axis deviation now present Electronically Signed On 07-22-20 11:52:31 DESIGN PROJECT MANAGER by Leodan Arboleda
[2020-07-22] MEDS ORDERED: LORazepam 2 MG/ML VIAL IV ONE ×2 (12:25→18:32)
[2020-07-22] MEDS ORDERED: LORazepam 2 MG/ML VIAL ONE (12:41)
[2020-07-22 15:18] LABS: BUN Blood Urea Nitrogen 8 mg/dL (7-18); Bicarbonate 26 mmol/L (21-32); Glucose Level 192 mg/dL (74-106); Potassium 3.2 mmol/L (3.5-5.1); Sodium Level 152 mmol/L (136-145)
[2020-07-22] MEDS: KCL 20 MEQ/100 mL IVPB 20 MEQ/100 ML BAG IV SCH ×2 (15:38→16:52)
--- NOTE | 2020-07-22 16:32 | P.PN ---
Subjective Date of Service: 07/22/20 Chief Complaint: Altered mental status Subjective: No new changes (responsed with 1 word, still decreased responsiveness, confused, agitated at times states she hasn't taken her insulin for at least 3 days if not more) Review of Systems is unable to be obtained Physical Examination - Vital Signs Temperature: 99.6 F Blood Pressure: 89/57 Pulse: 118 Respirations: 19 Pulse Ox (%): 100 - Physical Exam General: Other (decreased responsiveness, confused) HEENT: PERRLA, Sclerae nonicteric Respiratory: Clear to auscultation bilaterally, Normal air movement Cardiovascular: No edema, Irregular heart rate/rhythm (sinus tachycardia (110s)) Gastrointestinal: Soft and benign Musculoskeletal: No tenderness Integumentary: No rashes Urinary: Olivera catheter - Studies Microbiology Data (last 24 hrs): 07/21/20 15:09 Nasopharnyx Influenza Type A Antigen Screen - Final 07/21/20 15:09 Nasopharnyx Influenza Type B Antigen Screen - Final Assessment & Plan Physician Review Additional Text: Sepsis, unclear source Metabolic acidosis secondary to DKA, type 1 diabetes Hypokalemia continues to require ICU level of care patient seen throughout the day, AG closed, but remains with some confusion, at times agitated unable / unsafe to begin PO feeds at this time, continue insulin drip bicarb normal, switch D5 Bicarb +KCL to D5 1/4NS + KCL continue to monitor BMP q4hr replace electrolyte, phos significantly low today leukocytosis improving, remains afebrile, continue rocephin, leukocytosis possibly infectious etiology vs reactive due to DKA, will check procalcitonin seen on 07/19 for nonspecific abd pain, nausea, vomiting, noted to have loaded bacteria in urine, culture with mixed jayjay, was dc'd on clinda blood culture pending Dispo: anticipate continued hospitalization for at least another 24-48hrs Critical Care: Yes Time Spent Managing Pts Care (In Minutes): 45
[2020-07-22] MEDS ORDERED: D5 0.2 NS 1,000 ML with POTASSIUM CL 40 MEQ IV SCH ×2 (17:00)
[2020-07-22] MEDS: D5 NS IV SCH ×4 (18:09→22:27)
[2020-07-22 20:24] LABS: BUN Blood Urea Nitrogen 6 mg/dL (7-18); Bicarbonate 28 mmol/L (21-32); Glucose Level 110 mg/dL (74-106); Potassium 3.3 mmol/L (3.5-5.1); Sodium Level 151 mmol/L (136-145)
[2020-07-22 20:27] LABS: Phosphorus 0.5 mg/dL (2.5-4.9)
[2020-07-23 00:05] LABS: BUN Blood Urea Nitrogen 5 mg/dL (7-18); Bicarbonate 28 mmol/L (21-32); Glucose Level 112 mg/dL (74-106); Potassium 3.5 mmol/L (3.5-5.1); Sodium Level 150 mmol/L (136-145)
[2020-07-23] MEDS ORDERED: POTASSIUM PHOS IN 0.9 % NACL 15 MMOL/250 ML BAG IV ONE ×3 (00:51→09:59)
[2020-07-23] MEDS: POTASSIUM CL IV SCH ×6 (02:54→09:20)
[2020-07-23] MEDS: D5 NS IV SCH ×6 (02:54→09:20)
[2020-07-23 04:18] LABS: BUN Blood Urea Nitrogen 4 mg/dL (7-18); Bicarbonate 27 mmol/L (21-32); Glucose Level 122 mg/dL (74-106); Phosphorus 1.8 mg/dL (2.5-4.9); Potassium 3.4 mmol/L (3.5-5.1); Sodium Level 149 mmol/L (136-145)
[2020-07-23] MEDS ORDERED: CALCIUM GLUC 10% INJ 4.65 MEQ in NA CHLORIDE 0.9% 100 ML IV ONE (05:32)
[2020-07-23] MEDS: GABAPENTIN 300 MG CAP PO SCH ×2 (06:10→21:48)
[2020-07-23] MEDS ORDERED: CALCIUM GLUCONATE 1 GM IVPB 1 GM/50 ML BAG IV ONE (06:19)
[2020-07-23] MEDS ORDERED: GABAPENTIN 300 MG CAP ONE (06:24)
[2020-07-23 08:16] LABS: Absolute Lymphocytes (CBC) 1.1 K/uL (0.7-4.9); Basophils % 0.6 % (0-1.3); Hematocrit 30.4 % (36.0-45.0); Lymphocytes % 16.9 % (15.3-44.8); MPV 8.7 fL (7.6-11.3); RBC Red Blood Cell Count 3.48 M/uL (3.86-4.86)
[2020-07-23 08:50] LABS: BUN Blood Urea Nitrogen 3 mg/dL (7-18); Bicarbonate 27 mmol/L (21-32); Glucose Level 163 mg/dL (74-106); Magnesium 1.7 mg/dL (1.8-2.4); Phosphorus 1.9 mg/dL (2.5-4.9); Potassium 3.3 mmol/L (3.5-5.1); Sodium Level 147 mmol/L (136-145)
[2020-07-23] MEDS: ENOXAPARIN 40 MG/0.4 ML SQ SCH (08:59)
[2020-07-23] MEDS: CEFTRIAXONE/SWI 1gm 1 GM/10 ML SYR IVP SCH (08:59)
[2020-07-23] MEDS ORDERED: INSULIN GLARGINE 100 UNITS/ML SQ SCH (09:00)
[2020-07-23] MEDS ORDERED: INSULIN GLARGINE 100 UNITS/ML SQ ONE ×2 (09:04→22:00)
[2020-07-23] MEDS ORDERED: CEFTRIAXONE/SWI 1gm 1 GM/10 ML SYR ONE (09:13)
[2020-07-23] MEDS ORDERED: ENOXAPARIN 40 MG/0.4 ML SQ ONE (09:13)
[2020-07-23] MEDS ORDERED: MAGNESIUM SULFATE 1 gm IVPB 1 GM/100 ML BAG IV ONE (09:59)
[2020-07-23] MEDS: KCL 20 MEQ/100 mL IVPB 20 MEQ/100 ML BAG IV SCH ×2 (10:10→11:36)
[2020-07-23] MEDS ORDERED: KCL 20 MEQ/100 mL IVPB 20 MEQ/100 ML BAG IV ONE (10:23)
[2020-07-23] MEDS: INSULIN -REGULAR HUMAN 50 UNIT/0.5 ML ML SQ SCH ×3 (11:30→21:51)
--- NOTE | 2020-07-23 19:51 | P.PN ---
Subjective Date of Service: 07/23/20 Chief Complaint: Altered mental status Subjective: Improving (more awake/alert, feeling better, with some nausea but getting appetite back) Review of Systems 10-point ROS is otherwise unremarkable Physical Examination - Vital Signs Temperature: 98.2 F Blood Pressure: 118/85 Pulse: 96 Respirations: 16 Pulse Ox (%): 100 - Physical Exam General: Alert, In no apparent distress, Oriented x3 HEENT: Sclerae nonicteric Respiratory: Clear to auscultation bilaterally Cardiovascular: No edema, Regular rate/rhythm Gastrointestinal: Soft and benign, No tenderness Musculoskeletal: No tenderness Integumentary: No rashes, No significant lesion Neurological: Normal speech Assessment & Plan Physician Review Additional Text: Metabolic acidosis secondary to DKA, type 1 diabetes Leukocytosis Sepsis, unclear source Hypokalemia improving, nearly back to baseline will advance diet, if tolerates, transition IV insulin to subq and SSI; and dc IVF if continues to improve, suspect can be transferred to floor today leukocytosis improving, remains afebrile, cultures remain NGTD, leukocytosis likely reactive due to DKA, procalcitonin was only mildly elevated; dc rocephin seen on 07/19 for nonspecific abd pain, nausea, vomiting, noted to have loaded bacteria in urine, culture with mixed jayjay, was dc'd on clinda; UA ok on admission blood culture NGTD Dispo: anticipate dc home tomorrow if tolerating diet / glc remain controlled Time Spent Managing Pts Care (In Minutes): 40
[2020-07-23] MEDS: INSULIN GLARGINE 100 UNITS/ML SQ SCH (21:49)
[2020-07-24 00:19] VITALS: O2SAT 98
[2020-07-24] MEDS ORDERED: ACETAMINOPHEN 500 MG TAB PO ONE (02:35)
[2020-07-24] MEDS: INSULIN -REGULAR HUMAN 50 UNIT/0.5 ML ML SQ SCH ×2 (07:30→12:14)
[2020-07-24 08:39] LABS: Hematocrit 29.1 % (36.0-45.0)
[2020-07-24 08:40] LABS: Absolute Lymphocytes (CBC) 2.1 K/uL (0.7-4.9); Lymphocytes % 44.2 % (15.3-44.8); MPV 8.4 fL (7.6-11.3)
[2020-07-24 08:42] LABS: Sodium Level 147 mmol/L (136-145)
[2020-07-24 08:43] LABS: Bicarbonate 29 mmol/L (21-32); Glucose Level 101 mg/dL (74-106); Potassium 3.4 mmol/L (3.5-5.1)
[2020-07-24 08:44] LABS: Magnesium 2.3 mg/dL (1.8-2.4); Phosphorus 2.9 mg/dL (2.5-4.9)
[2020-07-24 08:45] LABS: BUN Blood Urea Nitrogen 6 mg/dL (7-18)
[2020-07-24] MEDS: INSULIN GLARGINE 100 UNITS/ML SQ SCH (08:58)
[2020-07-24] MEDS: GABAPENTIN 300 MG CAP PO SCH (08:58)
[2020-07-24] MEDS: ENOXAPARIN 40 MG/0.4 ML SQ SCH (08:59)
[2020-07-24] MEDS ORDERED: POTASSIUM CL SA 10 MEQ TAB PO ONE (09:00)
--- NOTE | 2020-07-24 11:15 | P.DS ---
Admission Date: 07/21/20 Discharge Date: 07/24/20 Disposition: ROUTINE DISCHARGE Discharge Condition: GOOD Reason for Admission: Altered mental status Procedures: Problem List Metabolic acidosis secondary to DKA, type 1 diabetes Leukocytosis, possible sepsis Hypokalemia, Hypernatremia, Hyperchloremia Brief History of Present Illness: 30-year-old woman with a history of insulin-dependent diabetes mellitus was brought to the emergency department with altered mental status. Patient was apparently in the ED 2 days ago for sore throat. She was diagnosed with acute p haryngitis and discharged home. Today patient noted to be in DKA with severe acidemia. Her blood glucose level is up to 400. Patient is altered and could not provide any history. She is afebrile, has severe leukocytosis, tachycardia and meet criteria for sepsis. She is not hypotensive. Patient is given IV fluid bolus, IV bicarb for severe acidemia, and started on insulin drip. Patient is admitted for further management of the DKA. Hospital Course: She was treated for DKA with insulin drip / protocol. She was empirically covered for sepsis with Rocephin by admitting physician. During her hospitalization she had improvement of her glucose, mental status, and was ultimately felt appropriate for discharge home. She was discharged to resume home medications and given a prescription for levaquin to cover for possible URI. On further discussion - reported she did not take her insulin over the past 3-4 days prior to admission. Patient reported not remembering anything between being discharged home from ED a few days ago and waking up in ICU during this admission. Vital Signs/Physical Exam: Temp Pulse Resp BP Pulse Ox 97.7 F 81 15 110/76 97 07/24/20 08:00 07/24/20 08:00 07/24/20 08:00 07/24/20 08:00 07/24/20 08:00 General: Alert, In no apparent distress, Oriented x3 HEENT: Mucous membr. moist/pink, Sclerae nonicteric Neck: Supple Respiratory: Clear to auscultation bilaterally, Normal air movement, Other (nonproductive cough) Cardiovascular: No edema, Regular rate/rhythm Gastrointestinal: Soft and benign, Non-distended, No tenderness Musculoskeletal: No tenderness Integumentary: No rashes Neurological: Normal speech, Normal affect Laboratory Data at Discharge: WBC 4.8 K/uL (4.3-10.9) D 07/24/20 05:00 Hgb 10.0 g/dL (12.0-15.0) L 07/24/20 05:00 Hct 29.1 % (36.0-45.0) L 07/24/20 05:00 Plt Count 160 K/uL (152-406) 07/24/20 05:00 Sodium 147 mmol/L (136-145) H 07/24/20 05:00 Potassium 3.4 mmol/L (3.5-5.1) L 07/24/20 05:00 BUN 6 mg/dL (7-18) L 07/24/20 05:00 Creatinine 0.40 mg/dL (0.55-1.3) L 07/24/20 05:00 Glucose 101 mg/dL (74-106) 07/24/20 05:00 Phosphorus 2.9 mg/dL (2.5-4.9) D 07/24/20 05:00 Magnesium 2.3 mg/dL (1.8-2.4) D 07/24/20 05:00 Triglycerides 156 mg/dL (<150) H 07/22/20 06:50 Cholesterol 218 mg/dL (<200) H 07/22/20 06:50 HDL Cholesterol 47 mg/dL (40-60) 07/22/20 06:50 Cholesterol/HDL Ratio 4.64 07/22/20 06:50 Home Medications: Gabapentin 300 mg PO BID 10/29/18 Insulin Degludec [Tresiba] 22 unit SQ BEDTIME 07/23/20 Insulin Lispro [Humalog] 4 unit SQ AC 07/23/20 Insulin Lispro [Humalog] See Protocol SQ AC 07/23/20 Ondansetron [Zofran] 4 mg PO Q8H PRN 5 Days #15 tab 07/24/20 Potassium Chloride [Klor-Con 10] 10 meq PO DAILY 5 Days #5 tablet.er 07/24/20 levoFLOXacin [Levaquin] 750 mg PO DAILY 5 Days #5 tab 07/24/20 New Medications: Potassium Chloride [Klor-Con 10] 10 meq PO DAILY 5 Days #5 tablet.er levoFLOXacin [Levaquin] 750 mg PO DAILY 5 Days #5 tab Ondansetron [Zofran] 4 mg PO Q8H PRN 5 Days #15 tab PRN Reason: Nausea / Vomiting Patient Discharge Instructions: Follow up with your PCP within 3-5 days to check on how you're doing, your glucose levels, and your potassium levels. Resume home medications, continue to monitor glucose, continue sliding scale. new pres criptions: levofloxacin (levaquin) is an antibiotic, zofran (ondansetron) for nausea, and potassium because your potassium was slightly low. Diet: ADA Activity: Ad latosha Followup: NONE,NONE [Primary Care Provider] - Time spent managing pt's care (in minutes): 40
[2020-07-24 12:10] VITALS: BP 119/74; TEMP 97.2
== END 2020-07-24 12:42 | disposition home or self-care (01) | DRG 637 ==
LOC: ER 13:16 → ERHOLD 15:51 → 2ND 07-23 11:50
PROVIDERS: ADMIT Internal Medicine; ATTEND Hospitalist
PROC: 06HY33Z Insertion of Infusion Device into Lower Vein, Percutaneous Approach (ICD-10-PCS; principal; 2020-07-21)
DX: E10.10 Type 1 diabetes mellitus with ketoacidosis without coma (principal); A41.9 Sepsis, unspecified organism; G93.41 Metabolic encephalopathy; E87.0 Hyperosmolality and hypernatremia; E87.6 Hypokalemia; E86.0 Dehydration; E87.8 Other disorders of electrolyte and fluid balance, not elsewhere classified; Z88.0 Allergy status to penicillin; Z88.1 Allergy status to other antibiotic agents; Z88.8 Allergy status to other drugs, medicaments and biological substances; Z91.09 Other allergy status, other than to drugs and biological substances; Z79.4 Long term (current) use of insulin; Z79.899 Other long term (current) drug therapy; Z20.828 Contact with and (suspected) exposure to other viral communicable diseases
CPT/HCPCS: 36415; 71045; 80048; 80061; 80076; 81003; 81015; 81025; 82010; 82310; 82805; 82947; 83690; 83735; 84100; 84145; 84703; 85025; 87040; 87086; 87088; 87804; 93005; 96360; 96361; 96374; 96375; 99284; 99285; J0610; J0696; J1650; J1815; J3475; J3480; J7030; J7040; J7799; U0003

== ENCOUNTER 2021-02-05 12:29 | Emergency (ER) | payer OTHER ==
[2021-02-05 13:38] LABS: Urine Blood 2+ (Negative); Urine Glucose 2+ (Negative); Urine Protein Trace (Negative); Urine Specific Gravity 1.015 (1.005-1.030); Urine pH 5.5 (5.0-7.0)
[2021-02-05 13:55] LABS: Urine Specific Gravity/Preg 1.015 (1.005-1.030)
[2021-02-05] MEDS ORDERED: NA CHLORIDE 0.9% 1,000 ML ONE ×2 (14:23)
[2021-02-05] MEDS ORDERED: CEFTRIAXONE/SWI 1gm 1 GM/10 ML SYR ONE (14:23)
[2021-02-05 14:26] LABS: Basophils % 0.9 % (0-1.3); Hematocrit 41.5 % (36.0-45.0); Lymphocytes % 10.3 % (15.3-44.8); MPV 10.2 fL (7.6-11.3); RBC Red Blood Cell Count 4.87 M/uL (3.86-4.86)
[2021-02-05 14:43] LABS: Urine Bacteria <20 /HPF (<20); Urine Mucus 1+ /HPF (NONE SEEN)
[2021-02-05 14:48] LABS: ALT/SGPT 19 U/L (12-78); AST/SGOT 10 U/L (15-37); Albumin 3.6 g/dL (3.4-5.0); Alkaline Phosphatase 86 U/L (45-117); Amylase 38 U/L (25-115); BUN Blood Urea Nitrogen 19 mg/dL (7-18); Bicarbonate 22 mmol/L (21-32); Bilirubin Direct < 0.1 mg/dL (0-0.2); Bilirubin Total 0.5 mg/dL (0.2-1.0); Creatine Phosphokinase 28 U/L (26-192); Glucose Level 358 mg/dL (74-106); Lipase 99 U/L (73-393); Phosphorus 4.4 mg/dL (2.5-4.9); Potassium 4.4 mmol/L (3.5-5.1); Protein, Total 7.5 g/dL (6.4-8.2); Sodium Level 136 mmol/L (136-145)
--- NOTE | 2021-02-05 15:57 | EDPHYS ---
Physician Documentation [facility] Name: Cristina Wheeler Age: 30 yrs Sex: Female : 1990 Arrival Date: 02/05/2021 Time: 12:34 Bed 18 Private MD: ED Physician Shraddha Herndon HPI: 02/05 14:49 This 30 yrs old Female presents to ER via Ambulatory with complaints of Pain ma2 With Urination, DKA. 14:49 Onset: The symptoms/episode began/occurred gradually, 2 day(s) ago. Severity of ma2 symptoms: At their worst the symptoms were mild in the emergency department the symptoms are unchanged. The patient has experienced similar episodes in the past. 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 - Social history:: Smoking status: Reported history of juuling and/or vaping. Patient/guardian denies using alcohol, street drugs, The patient lives with family. - Family history:: not pertinent. ROS: 14:49 Constitutional: Negative for fever, chills, and weight loss. ma2 14:49 All other systems are negative. Exam: 14:49 Constitutional: This is a well developed, well nourished patient who is awake, alert, ma2 and in no acute distress. Chest/axilla: Normal chest wall appearance and motion. Nontender with no deformity. No lesions are appreciated. Cardiovascular: Regular rate and rhythm with a normal S1 and S2. No gallops, murmurs, or rubs. Normal PMI, no JVD. No pulse deficits. Respiratory: Lungs have equal breath sounds bilaterally, clear to auscultation and percussion. No rales, rhonchi or wheezes noted. No increased work of breathing, no retractions or nasal flaring. Abdomen/GI: Soft, non-tender, with normal bowel sounds. No distension or tympany. No guarding or rebound. No evidence of tenderness throughout. Back: No spinal tenderness. No costovertebral tenderness. Full range of motion. Skin: Warm, dry with normal turgor. Normal color with no rashes, no lesions, and no evidence of cellulitis. MS/ Extremity: Pulses equal, no cyanosis. Neurovascular intact. Full, normal range of motion. Neuro: Awake and alert, GCS 15, oriented to person, place, time, and situation. Cranial nerves II-XII grossly intact. Motor strength 5/5 in all extremities. Sensory grossly intact. Cerebellar exam normal. Normal gait. Vital Signs: 12:50 BP 110 / 73; Pulse 101; Resp 17 S; Temp 99.0(TE); Pulse Ox 98% on R/A; Weight 45.36 kg jd3 (R); Height 4 ft. 10 in. (147.32 cm) (R); Pain 8/10; 14:30 BP 138 / 86; Pulse 99; Resp 20; Pulse Ox 100% on R/A; kg 14:45 BP 137 / 81; Pulse 101; Resp 20; Pulse Ox 100% on R/A; kg 15:00 BP 146 / 98; Pulse 106; Resp 16 S; Pulse Ox 100% on R/A; kg 15:15 BP 129 / 66; Pulse 103; Resp 20; Pulse Ox 100% on R/A; kg 15:30 BP 123 / 74; Pulse 98; Resp 17; Pulse Ox 100% on R/A; kg 15:45 BP 121 / 71; Pulse 101; Resp 17; Pulse Ox 100% ; kg 16:00 BP 126 / 87; Pulse 99; Resp 20; Pulse Ox 100% on R/A; kg 16:15 BP 127 / 81; Pulse 100; Resp 16; Pulse Ox 100% on R/A; kg 16:30 BP 125 / 75; Pulse 102; Resp 20; Pulse Ox 100% on R/A; kg 12:50 Body Mass Index 20.90 (45.36 kg, 147.32 cm) jd3 MDM: 12:47 Patient medically screened. ma2 14:49 Differential Diagnosis dka vs uti vs dehydration vs high blod sugar . Data reviewed: ma2 vital signs, nurses notes, EMS record. 15:56 Counseling: I had a detailed discussion with the patient and/or guardian regarding: the nc2 historical points, exam findings, and any diagnostic results supporting the discharge/admit diagnosis, the presence of at least one elevated blood pressure reading (>120/80) during this emergency department visit, the need for outpatient follow up. Response to treatment: the patient's symptoms have markedly improved after treatment. 02/05 13:38 Order name: Urine Dipstick-Ancillary; Complete Time: 13:39 [facility] 02/05 13:41 Order name: Urine --Ancillary (enter results); Complete Time: 14:00 02/05 14:03 Order name: Urine Microscopic Only; Complete Time: 15:54 02/05 14:10 Order name: Acetone, Serum; Complete Time: 15:54 [facility] 02/05 14:10 Order name: Amylase, Serum; Complete Time: 15:54 [facility] 02/05 14:10 Order name: Basic Metabolic Panel; Complete Time: 15:54 [facility] 02/05 14:10 Order name: CBC with Diff; Complete Time: 15:54 [facility] 02/05 14:10 Order name: Hepatic Function; Complete Time: 15:54 [facility] 02/05 14:10 Order name: Lipase; Complete Time: 15:54 [facility] 02/05 14:10 Order name: Phosphorus; Complete Time: 15:54 [facility] 02/05 14:34 Order name: Creatine Phosphokinase; Complete Time: 15:54 [facility] 02/05 14:44 Order name: Urine Culture [facility] 02/05 14:10 Order name: EKG; Complete Time: 14:11 [facility] 02/05 14:10 Order name: Cardiac monitoring; Complete Time: 14:31 [facility] 02/05 14:10 Order name: EKG - Nurse/Tech; Complete Time: 14:32 [facility] 02/05 14:10 Order name: IV Saline Lock; Complete Time: 14:32 [facility] 02/05 14:10 Order name: NPO; Complete Time: 14:32 [facility] 02/05 14:10 Order name: O2 Per Protocol; Complete Time: 14:32 [facility] 02/05 14:10 Order name: O2 Sat Monitoring; Complete Time: 14:33 ma2 Administered Medications: 14:06 Drug: NS 0.9% 1000 ml Route: IV; Rate: 1 bolus; Site: left wrist; tr6 15:35 Follow up: Response: No adverse reaction; IV Status: Completed infusion; IV Intake: kg 1000ml 14:07 Drug: Rocephin (cefTRIAXone) 1 grams Route: IV; Rate: calculated rate; Site: left wrist;tr6 17:06 Follow up: Response: No adverse reaction kg 17:06 Follow up: Response: No adverse reaction kg 14:28 Drug: NS 0.9% 1000 ml Route: IV; Rate: 1000 ml; Site: left forearm; kg 15:00 Follow up: Response: No adverse reaction; IV Status: Completed infusion; IV Intake: kg 1000ml 15:35 Follow up: Response: No adverse reaction; IV Status: Completed infusion; IV Intake: kg 1000ml 16:30 Drug: Insulin Regular Human 2 units {Co-Signature: tr6 (Shahla Chowdhury RN).} Route: kg IVP; Site: left forearm; 16:37 Follow up: Response: No adverse reaction kg 17:05 Follow up: Response: No adverse reaction; Marked relief of symptoms; Blood sugar is kg lowered Disposition: 02/05/21 15:56 Discharged to Home. Impression: Cystitis, unspecified without hematuria, Elevated blood glucose level. - Condition is Stable. - Discharge Instructions: Urinary Tract Infection, Adult, [id number], Diabetes Mellitus and Food. - Prescriptions for Cipro 500 mg Oral Tablet - take 1 tablet by ORAL route every 12 hours for 7 days; 14 tablet. - Medication Reconciliation Form, Thank You Letter, Antibiotic Education, Prescription Opioid Use, Work release form form. - Follow up: Private Physician; When: As needed; Reason: If symptoms return, Continuance of care. Signatures: [facility] Sukhwinder Shelby RN RN Shraddha Joseph MD MD ma2 Shahla Chowdhury RN RN tr6 Lisette Chisholm RN RN kg Shahla Chowdhury RN tr6 Corrections: (The following items were deleted from the chart) 14:33 13:42 CREATINE PHOSPHOKINASE+C.LAB.BRZ ordered. [facility] 17:07 15:56 02/05/2021 15:56 Discharged to Home. Impression: Cystitis, unspecified without kg hematuria; Elevated blood glucose level. Condition is Stable. Prescriptions for Cipro 500 mg Oral Tablet - take 1 tablet by ORAL route every 12 hours for 7 days; 14 tablet. and Forms are Medication Reconciliation Form, Thank You Letter, Antibiotic Education, Prescription Opioid Use. Follow up: Private Physician; When: As needed; Reason: If symptoms return, Continuance of care. ma2
--- NOTE | 2021-02-05 15:57 | ER ---
Nurse's Notes [facility] Name: Cristina Wheeler Age: 30 yrs Sex: Female : 1990 Arrival Date: 02/05/2021 Time: 12:34 Bed 18 Private MD: Diagnosis: Cystitis, unspecified without hematuria;Elevated blood glucose level Presentation: 02/05 12:48 Chief complaint: Patient states: "I am having hard time urinating and when I do, it jd3 feels like i still need to go. my blood sugars have also been very high recently and I don't keep good track of my insulin.". Coronavirus screen: At this time, the client does not indicate any symptoms associated with coronavirus-19. Ebola Screen: Patient negative for fever greater than or equal to 101.5 degrees Fahrenheit, and additional compatible Ebola Virus Disease symptoms. Initial Sepsis Screen: Does the patient meet any 2 criteria? No. Patient's initial sepsis screen is negative. Does the patient have a suspected source of infection? No. Patient's initial sepsis screen is negative. Risk Assessment: Do you want to hurt yourself or someone else? Patient reports no desire to harm self or others. Onset of symptoms was February 05, 2021. 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 - Social history:: Smoking status: Reported history of juuling and/or vaping. Patient/guardian denies using alcohol, street drugs, The patient lives with family. - Family history:: not pertinent. Screenin:28 Abuse screen: Denies threats or abuse. Denies injuries from another. Nutritional kg screening: No deficits noted. Tuberculosis screening: No symptoms or risk factors identified. Fall Risk None identified. No fall in past 12 months (0 pts). No secondary diagnosis (0 pts). IV access (20 points). Ambulatory Aid- None/Bed Rest/Nurse Assist (0 pts). Gait- Normal/Bed Rest/Wheelchair (0 pts) Mental Status- Oriented to own ability (0 pts). Total Reece Fall Scale indicates No Risk (0-24 pts). Assessment: 13:23 General: Appears in no apparent distress. Behavior is calm, cooperative, appropriate kg for age, quiet. Pain: Complains of pain in right lower quadrant and left lower quadrant Pain currently is 4 out of 10 on a pain scale. at worst was 6 out of 10 on a pain scale. level that patient reports is acceptable is 3 out of 10 on a pain scale. Quality of pain is described as burning, sharp, Pain began 4 hours ago. Neuro: No deficits noted. Cardiovascular: No deficits noted. Respiratory: No deficits noted. GI: Reports lower abdominal pain, nausea. : Reports inability to void, since This AM pain in suprapubic area lower quadrant(s) urgency, since This AM. EENT: No deficits noted. Derm: No deficits noted. Musculoskeletal: No deficits noted. Vital Signs: 12:50 BP 110 / 73; Pulse 101; Resp 17 S; Temp 99.0(TE); Pulse Ox 98% on R/A; Weight 45.36 kg jd3 (R); Height 4 ft. 10 in. (147.32 cm) (R); Pain 8/10; 14:30 BP 138 / 86; Pulse 99; Resp 20; Pulse Ox 100% on R/A; kg 14:45 BP 137 / 81; Pulse 101; Resp 20; Pulse Ox 100% on R/A; kg 15:00 BP 146 / 98; Pulse 106; Resp 16 S; Pulse Ox 100% on R/A; kg 15:15 BP 129 / 66; Pulse 103; Resp 20; Pulse Ox 100% on R/A; kg 15:30 BP 123 / 74; Pulse 98; Resp 17; Pulse Ox 100% on R/A; kg 15:45 BP 121 / 71; Pulse 101; Resp 17; Pulse Ox 100% ; kg 16:00 BP 126 / 87; Pulse 99; Resp 20; Pulse Ox 100% on R/A; kg 16:15 BP 127 / 81; Pulse 100; Resp 16; Pulse Ox 100% on R/A; kg 16:30 BP 125 / 75; Pulse 102; Resp 20; Pulse Ox 100% on R/A; kg 12:50 Body Mass Index 20.90 (45.36 kg, 147.32 cm) jd3 ED Course: 12:34 Patient arrived in ED. wm 12:47 Shraddha Herndon MD is Attending Physician. ma2 12:49 Triage completed. jd3 12:51 Arm band placed on. jd3 13:15 Inserted saline lock: 20 gauge in left forearm, using aseptic technique. kg 13:22 Lisette Chisholm, YOAN is Primary Nurse. kg 14:12 Urine Microscopic Only Sent. 5 14:32 Phosphorus Sent. 5 14:32 Lipase Sent. 5 14:32 Hepatic Function Sent. 5 14:32 Basic Metabolic Panel Sent. 5 14:32 Amylase, Serum Sent. 5 14:32 Acetone, Serum Sent. 5 14:33 Initial lab(s) drawn, by ED staff, sent to lab. EKG done, by ED staff, reviewed by erika Herndon MD. 17:03 No provider procedures requiring assistance completed. IV discontinued, intact, kg bleeding controlled, No redness/swelling at site. Pressure dressing applied. 17:05 Patient has correct armband on for positive identification. Bed in low position. Call kg light in reach. Side rails up X 1. Administered Medications: 14:06 Drug: NS 0.9% 1000 ml Route: IV; Rate: 1 bolus; Site: left wrist; tr6 15:35 Follow up: Response: No adverse reaction; IV Status: Completed infusion; IV Intake: kg 1000ml 14:07 Drug: Rocephin (cefTRIAXone) 1 grams Route: IV; Rate: calculated rate; Site: left wrist;tr6 17:06 Follow up: Response: No adverse reaction kg 17:06 Follow up: Response: No adverse reaction kg 14:28 Drug: NS 0.9% 1000 ml Route: IV; Rate: 1000 ml; Site: left forearm; kg 15:00 Follow up: Response: No adverse reaction; IV Status: Completed infusion; IV Intake: kg 1000ml 15:35 Follow up: Response: No adverse reaction; IV Status: Completed infusion; IV Intake: kg 1000ml 16:30 Drug: Insulin Regular Human 2 units {Co-Signature: tr6 (Shahla Chowdhury RN).} Route: kg IVP; Site: left forearm; 16:37 Follow up: Response: No adverse reaction kg 17:05 Follow up: Response: No adverse reaction; Marked relief of symptoms; Blood sugar is kg lowered Intake: 15:00 IV: 1000ml; Total: 1000ml. kg 15:35 IV: 1000ml; Total: 2000ml. kg 15:35 IV: 1000ml; Total: 3000ml. kg Outcome: 15:56 Discharge ordered by . iban 17:04 Discharged to home ambulatory. kg 17:04 Condition: good 17:04 Discharge instructions given to patient, Instructed on discharge instructions, follow up and referral plans. Demonstrated understanding of instructions, follow-up care, medications, Prescriptions given X 1. 17:07 Patient left the ED. kg Signatures: Kath Rose Sukhwinder Martell RN RN Shraddha Joseph MD MD ma2 Ramnanan, Tiffany, YOAN RN tr6 Lisette Chisholm RN RN kg Shabana Ball Shahla Chowdhury RN tr6 Corrections: (The following items were deleted from the chart) 14:33 14:12 CREATINE PHOSPHOKINASE+C.LAB.BRZ drawn and sent. health system EDMD
[2021-02-05] MEDS ORDERED: INSULIN -REGULAR HUMAN 50 UNIT/0.5 ML ML ONE (16:51)
[2021-02-05 17:19] VITALS: TEMP 99
[2021-02-05 17:21] VITALS: O2SAT 100
[2021-02-05 17:46] VITALS: BP 125/75
--- NOTE | 2021-02-06 15:58 | EKG ---
Test Date: 2021-02-05 Test Time: 14:19:48 Lead Custodian: SALLY MEASUREMENT RESULTS: Intervals: Rate: 100 ND: 134 QRSD: 76 QT: 338 QTc: 436 [place]: P: 50 ND: 134 QRS: 80 T: 46 INTERPRETIVE STATEMENTS: Normal sinus rhythm Possible Left atrial enlargement Borderline ECG Compared to ECG 07/21/2020 13:34:17 Sinus tachycardia no longer present Right-axis deviation no longer present Electronically Signed On 02-06-21 15:56:10 CDT by Leodan Arboleda
== END 2021-02-05 17:07 | disposition home or self-care (01) ==
LOC: ER 12:29
DX: N30.90 Cystitis, unspecified without hematuria (principal); E11.40 Type 2 diabetes mellitus with diabetic neuropathy, unspecified; Z79.4 Long term (current) use of insulin; Z88.0 Allergy status to penicillin; Z88.2 Allergy status to sulfonamides; Z88.7 Allergy status to serum and vaccine; Z91.018 Allergy to other foods
CPT/HCPCS: 93005; 87088; 85025; 87086; 80048; 36415; 82010; 82150; 82550; 81025; 84100; 82947; 80076; 87077; 87186; 83690; J0696; J7030 ×2; 81003; 81015

== ENCOUNTER 2021-11-19 00:32 | Inpatient (IN) | payer OTHER, SELFPAY ==
--- OUTSIDE RECORDS SUMMARY | 2021-11-19 00:35 | XMS REPORT | Continuity of Care Document ---
:1990 Author Organization [facility] t Address [address] [place] [address] Care Team Providers Name Role Phone Mehul DICKINSON Attending Clinician Unavailable Mehul Dickinson MD Attending Clinician Payers Payer Name Policy Type Policy Number Effective Date Expiration Date S conrado [facility] [id number] 2019 PLUS 00:00:00 [place] [id number] 2019 00:00:00 Problems This patient has no known problems. Allergies, Adverse Reactions, Alerts Allergy Allergy Status Severity Reaction(s) Onset Inactive Treating Comm ents Source Name Type Date Date Clinician SULFA Drug Active Unknown-Cmnt Univ ers (SULFONA Class 9- ity of [facility] 00:00: [place] ANTIBIOT 00 [facility] Penicill DA [facility] [place] [facility] Sulfa DA [facility] (Sulfona 03-21 [place] mide 00:00: d Antibiot 00 Medical ics) Center ibuprofe DA Active [facility] n 03-21 [place] 00:[facility] d [facility] sulfamet DA Active SV [facility] hoxazole 03-21 [place] 00:[facility]: d [facility] trimetho DA Active [facility] prim 03-21 [place] 00:[facility]: d [facility] penicill DA Active U 2017- [facility] in G 03-21 [place] 00:00: d [facility] shellfis DA Active SV 2017- [facility] h 03-21 [place] derived 00:00: d [facility] spinach DA Active [facility] 03-21 [place] 00:00: d [facility] MUSHROOM DA Active [facility] S 2- [place] 00:00: d [facility] PENICILL Drug Active Rash 2004- Univers INS Class 5-06 ity of 00:00: [address] [place] [address] Medications This patient has no known medications. Procedures This patient has no known procedures. Encounters Start End Encounter Admission Attending Care Care Encounter Source Date/Time Date/Time Type Type Clinicians Facility Department ID 2020-12-12 2020-12-12 [id number] Univers 13:30:00 13:30:00 SHERIE [id number] [facility] 2020-12-12 2020-12-12 [facility] [id number] Univers 13:30:00 13:30:00 SHERIE [facility] 2020-06-20 2020-06-20 [facility]patient [facility] [id number] Univers 12:45:00 12:45:00 [facility] 2020-06-20 2020-06-20 [id number] 10:27:33 12:32:24 Visit Sherie Sandoval [id number] [place] [id number] [facility] [id number] [facility] 220 [facility] 2020-06-20 2020-06-20 [facility] [id number] Univers 11:00:00 11:00:00 [facility] Results This patient has no known results.
[2021-11-19] MEDS ORDERED: ONDANSETRON 4 MG/2 ML VIAL ONE ×2 (01:55→05:53)
[2021-11-19] MEDS ORDERED: INSULIN -REGULAR HUMAN 50 UNIT/0.5 ML ML ONE ×3 (01:56→18:32)
[2021-11-19] MEDS ORDERED: NA CHLORIDE 0.9% 500 ML ONE (01:56)
[2021-11-19] MEDS ORDERED: NA CHLORIDE 0.9% 2,000 ML ONE (01:57)
[2021-11-19 02:31] LABS: Arterial Blood Carboxyhemoglob 1.5 % (0-1.5); Blood Gas Oxyhemoglobin 94.9 % (94-97); Blood O2 Saturation 97.7 % (92-98.5)
--- NOTE | 2021-11-19 02:37 | ER ---
Nurse's Notes [facility] Name: Cristina Wheeler Age: 31 yrs Sex: Female : 1990 Arrival Date: 11/19/2021 Time: 00:34 Bed 7 Private MD: Diagnosis: Type 1 diabetes mellitus with ketoacidosis;Vomiting;Acidosis Presentation: 11/19 01:15 Chief complaint: Parent and/or Guardian states: "I think she is in DKA, she is having vc1 chills and vomited one time.". Coronavirus screen: Vaccine status: Patient reports being unvaccinated. chills, vomiting. Ebola Screen: No symptoms or risks identified at this time. Initial Sepsis Screen: Does the patient meet any 2 criteria? HR > 90 bpm. No. Patient's initial sepsis screen is negative. Does the patient have a suspected source of infection? No. Patient's initial sepsis screen is negative. Risk Assessment: Do you want to hurt yourself or someone else? Patient reports no desire to harm self or others. Onset of symptoms was November 18, 2021. 01:15 Method Of Arrival: Ambulatory vc1 01:15 Acuity: KM 3 vc1 Triage Assessment: 01:19 General: Appears in no apparent distress. uncomfortable, slender, Behavior is calm, vc1 cooperative, appropriate for age. Pain: Denies pain. Neuro: Level of Consciousness is awake, alert, obeys commands, Oriented to person, place, time, situation, Appropriate for age. GI: Reports vomiting. Derm: Reports the chills. Historical: - Allergies: 01:18 flu medication; vc1 01:18 PENICILLINS; vc1 01:18 Spinach; vc1 01:18 Sulfa (Sulfonamide Antibiotics); vc1 - Home Meds: 01:18 gabapentin Oral [Active]; Tresiba FlexTouch U-100 100 unit/mL (3 mL) subcutaneous inpn vc1 [Active]; - PMHx: 01:18 Arthritis; Diabetes - IDDM; neuropathy; vc1 - Immunization history:: Adult Immunizations up to date, Client reports having NOT received the Covid vaccine. Flu vaccine is not up to date. - Social history:: Smoking status: Patient denies any tobacco usage or history of. - Family history:: not pertinent. Screenin:20 Abuse screen: Denies threats or abuse. Nutritional screening: No deficits noted. vc1 Nutritional screening: No deficits noted. Tuberculosis screening: No symptoms or risk factors identified. Fall Risk None identified. Assessment: 01:00 General: Appears in no apparent distress. uncomfortable, ill, slender, Behavior is vc1 calm, cooperative, appropriate for age. Pain: Denies pain. Neuro: Level of Consciousness is awake, alert, obeys commands, Oriented to person, place, time, situation, Appropriate for age. Cardiovascular: Capillary refill < 3 seconds Patient's skin is warm and dry. Respiratory: Airway is patent Respiratory effort is even, unlabored, Respiratory pattern is regular, symmetrical. GI: Abdomen is flat, non-distended, Reports normal bowel habits, vomiting. : No deficits noted. EENT: No deficits noted. Derm: Reports "chills". 02:00 Reassessment: Patient reporting nausea; family at bedside. lp1 03:15 Reassessment: At bedside with Dr. Leon for central line insertion. lp1 04:30 Reassessment: Patient appears in no apparent distress at this time. Patient resting in lp1 bed, speaking with significant other on phone. 05:53 Reassessment: Patient vomited at this time; Verbal order from Dr. Leon for Zofran lp1 4mg IV x1. 06:04 Reassessment: Patient appears in no apparent distress at this time. Patient resting, lp1 eyes closed, respirations even. Vital Signs: 01:15 BP 111 / 62; Pulse 111; Resp 12; Temp 98.5(O); Pulse Ox 100% on R/A; Weight 50.35 kg; vc1 Height 4 ft. 10 in. (147.32 cm); Pain 0/10; 02:00 BP 121 / 85; Pulse 114; Resp 20; Pulse Ox 100% on R/A; lp1 03:30 BP 153 / 89; Pulse 118; Resp 17; Pulse Ox 100% on R/A; lp1 04:30 BP 103 / 92; Pulse 117; Resp 18; Pulse Ox 100% on R/A; lp1 05:00 BP 118 / 77; Pulse 120; Resp 16; Pulse Ox 100% on R/A; lp1 06:04 BP 114 / 70; Pulse 111; Resp 17; Pulse Ox 99% on R/A; lp1 20:06 BP 108 / 71; Pulse 97; Resp 18; Pulse Ox 100% on R/A; wm 01:15 Body Mass Index 23.20 (50.35 kg, 147.32 cm) vc1 ED Course: 00:34 Patient arrived in ED. ja2 01:18 Triage completed. vc1 01:20 Arm band placed on right wrist. Patient placed. EKG completed in triage. Results shown vc1 to MD. EKG completed in triage. Results shown to MD. 01:21 Patient has correct armband on for positive identification. Bed in low position. Call vc1 light in reach. lining cleaner on. Pulse ox on. NIBP on. 01:25 Niko Leon MD is Attending Physician. [facility] 02:07 XRAY Chest (1 view) In Process Unspecified. EDMS 02:36 Shraddha Covington MD is Hospitalizing Provider. [facility] 03:30 Assisted provider with central line placement. Set up central line tray. Triple lumen lp1 line placed in right femoral. Line placed by Niko Leon MD Placement verified by blood return, Dressed with Tegaderm, Blood was collected. Patient tolerated well. Before procedure, did Practitioner(s) obtain informed consent? Yes. Patient \\T\\ family education about procedure, CLABSI prevention and S/S of infection? Yes. Was handwashing/sanitizing done immediately prior to procedure? Was patient positioned to in a way to prevent air embolism? Yes. Was procedure site sterilized? Yes, with Was the site allowed to dry? Yes. During the procedure, did the Practitioner(s) maintain a sterile field? Yes. Was blood aspirated from each lumen? Yes. 04:40 Maribeth Uribe, RN is Primary Nurse. lp1 06:57 Patient admitted, IV remains in place. lp1 20:36 Primary Nurse role handed off by Maribeth Uribe, RN cs9 11/20 00:22 Fifi Velasquez, YOAN is Primary Nurse. [email or web address] Administered Medications: 11/19 03:25 Drug: NS 0.9% 1000 ml Route: IV; Rate: 1 bolus; Site: right femoral; lp1 05:34 Follow up: IV Status: Completed infusion; IV Intake: 1000ml lp1 03:25 Drug: Zofran (Ondansetron) 4 mg Route: IVP; Site: right femoral; lp1 04:46 Follow up: Response: No adverse reaction lp1 04:15 Drug: Insulin Regular Human 10 units {Co-Signature: vc1 (Ruthie Alfonso RN).} Route: lp1 IVP; Site: right femoral; 05:34 Follow up: Response: Blood sugar is lowered lp1 04:22 Drug: NS 0.9% 500 ml Route: IV; Rate: bolus; Site: right femoral; lp1 05:00 Follow up: IV Status: Completed infusion; IV Intake: 500ml lp1 05:20 Drug: Rocephin (cefTRIAXone) 1 grams Route: IV; Rate: per protocol; Site: right femoral;lp1 05:56 Follow up: IV Status: Completed infusion; IV Intake: 50ml lp1 05:20 Drug: Sodium Bicarbonate 1 amp Route: IVP; Site: right femoral; lp1 05:56 Follow up: Response: No adverse reaction lp1 05:34 Drug: NS 0.9% 1000 ml Route: IV; Rate: 125 ml/hr; Site: right femoral; lp1 07:22 Follow up: IV Status: Infusion continued upon admission lp1 05:53 Drug: Zofran (Ondansetron) 4 mg Route: IVP; Site: right femoral; lp1 06:30 Follow up: Response: Nausea is decreased lp1 05:54 Drug: NS 0.9% 1000 ml Route: IV; Rate: 1 bolus; Site: right femoral; lp1 07:21 Follow up: IV Status: Completed infusion; IV Intake: 1000ml lp1 06:00 Drug: Insulin Drip - (Insulin Regular Human 100 units, NS 0.9% 100 ml) {Co-Signature: lp1 tw5 (Shahla Monreal.} Route: IV; Rate: 3 units/hr; Site: right femoral; 07:22 Follow up: IV Status: Infusion continued upon admission lp1 Point of Care Testing: Blood Glucose: 01:26 Blood Glucose: High (>450 mg/dL); vc1 05:33 Blood Glucose: 355 mg/dL; lp1 01:26 Greater than 500 vc1 Ranges: Intake: 05:00 IV: 500ml; Total: 500ml. lp1 05:34 IV: 1000ml; Total: 1500ml. lp1 05:56 IV: 50ml; Total: 1550ml. lp1 07:21 IV: 1000ml; Total: 2550ml. lp1 Outcome: 02:36 Decision to Hospitalize by Provider. tam 04:43 critical lp1 04:43 Instructed on the need for admit. 06:57 Admitted to ER Hold. Please see [facility] for further documentation. lp1 11/20 10:25 Patient left the ED. [email or web address] Signatures: Dispatcher [employer] EDMS Niko Leon MD MD cha Pena, Laura, RN RN lp1 David Frank RN RN [id number] Shabana Ball Jessica [facility] Nickie Zuniga Ruthie Schreiber RN RN vc1 Fifi Velasquez RN RN ag7 Ruthie Alfonso RN vc1 Shahla Mckeon tw5
--- NOTE | 2021-11-19 02:37 | EDPHYS ---
Physician Documentation [facility] Name: Cristina Wheeler Age: 31 yrs Sex: Female : 1990 Arrival Date: 11/19/2021 Time: 00:34 Bed 7 Private MD: ABNER Physician Niko Leon HPI: 11/19 01:37 This 31 yrs old Female presents to ER via Ambulatory with complaints of tam Nausea/Vomiting, CHILLS. 01:37 The patient presents to the emergency department with nausea, vomiting, that is tam continuous. Onset: The symptoms/episode began/occurred 1 day(s) ago. Possible causes: unknown. The symptoms are aggravated by nothing. The symptoms are alleviated by nothing. Associated signs and symptoms: Pertinent positives: nausea, vomiting. Severity of symptoms: At their worst the symptoms were mild in the emergency department the symptoms are unchanged. The patient has experienced similar episodes in the past, multiple times. Historical: - Allergies: 01:18 flu medication; vc1 01:18 PENICILLINS; vc1 01:18 Spinach; vc1 01:18 Sulfa (Sulfonamide Antibiotics); vc1 - Home Meds: 01:18 gabapentin Oral [Active]; Tresiba FlexTouch U-100 100 unit/mL (3 mL) subcutaneous inpn vc1 [Active]; - PMHx: 01:18 Arthritis; Diabetes - IDDM; neuropathy; vc1 - Immunization history:: Adult Immunizations up to date, Client reports having NOT received the Covid vaccine. Flu vaccine is not up to date. - Social history:: Smoking status: Patient denies any tobacco usage or history of. - Family history:: not pertinent. ROS: 01:37 Constitutional: Negative for fever, chills, and weight loss, Eyes: Negative for injury, tam pain, redness, and discharge, ENT: Negative for injury, pain, and discharge, Neck: Negative for injury, pain, and swelling, Cardiovascular: Negative for chest pain, palpitations, and edema, Respiratory: Negative for shortness of breath, cough, wheezing, and pleuritic chest pain, Back: Negative for injury and pain, : Negative for injury, bleeding, discharge, and swelling, MS/Extremity: Negative for injury and deformity, Skin: Negative for injury, rash, and discoloration, Neuro: Negative for headache, weakness, numbness, tingling, and seizure, Psych: Negative for depression, anxiety, suicide ideation, homicidal ideation, and hallucinations, Allergy/Immunology: Negative for hives, rash, and allergies, Endocrine: Negative for neck swelling, polydipsia, polyuria, polyphagia, and marked weight changes, Hematologic/Lymphatic: Negative for swollen nodes, abnormal bleeding, and unusual bruising. 01:37 Abdomen/GI: Positive for nausea and vomiting. Exam: 01:37 Constitutional: This is a well developed, well nourished patient who is awake, alert, tam and in no acute distress. Head/Face: Normocephalic, atraumatic. Eyes: Pupils equal round and reactive to light, extra-ocular motions intact. Lids and lashes normal. Conjunctiva and sclera are non-icteric and not injected. Cornea within normal limits. Periorbital areas with no swelling, redness, or edema. ENT: Nares patent. No nasal discharge, no septal abnormalities noted. Tympanic membranes are normal and external auditory canals are clear. Oropharynx with no redness, swelling, or masses, exudates, or evidence of obstruction, uvula midline. Mucous membranes moist. Neck: Trachea midline, no thyromegaly or masses palpated, and no cervical lymphadenopathy. Supple, full range of motion without nuchal rigidity, or vertebral point tenderness. No Meningismus. Chest/axilla: Normal chest wall appearance and motion. Nontender with no deformity. No lesions are appreciated. Cardiovascular: Regular rate and rhythm with a normal S1 and S2. No gallops, murmurs, or rubs. Normal PMI, no JVD. No pulse deficits. Respiratory: Lungs have equal breath sounds bilaterally, clear to auscultation and percussion. No rales, rhonchi or wheezes noted. No increased work of breathing, no retractions or nasal flaring. Abdomen/GI: Soft, non-tender, with normal bowel sounds. No distension or tympany. No guarding or rebound. No evidence of tenderness throughout. Back: No spinal tenderness. No costovertebral tenderness. Full range of motion. Female : Normal external genitalia. Skin: Warm, dry with normal turgor. Normal color with no rashes, no lesions, and no evidence of cellulitis. MS/ Extremity: Pulses equal, no cyanosis. Neurovascular intact. Full, normal range of motion. Neuro: Awake and alert, GCS 15, oriented to person, place, time, and situation. Cranial nerves II-XII grossly intact. Motor strength 5/5 in all extremities. Sensory grossly intact. Cerebellar exam normal. Normal gait. Psych: Awake, alert, with orientation to person, place and time. Behavior, mood, and affect are within normal limits. 06:17 ECG was reviewed by the Attending Physician. [facility] Vital Signs: 01:15 BP 111 / 62; Pulse 111; Resp 12; Temp 98.5(O); Pulse Ox 100% on R/A; Weight 50.35 kg; vc1 Height 4 ft. 10 in. (147.32 cm); Pain 0/10; 02:00 BP 121 / 85; Pulse 114; Resp 20; Pulse Ox 100% on R/A; lp1 03:30 BP 153 / 89; Pulse 118; Resp 17; Pulse Ox 100% on R/A; lp1 04:30 BP 103 / 92; Pulse 117; Resp 18; Pulse Ox 100% on R/A; lp1 05:00 BP 118 / 77; Pulse 120; Resp 16; Pulse Ox 100% on R/A; lp1 06:04 BP 114 / 70; Pulse 111; Resp 17; Pulse Ox 99% on R/A; lp1 20:06 BP 108 / 71; Pulse 97; Resp 18; Pulse Ox 100% on R/A; wm 01:15 Body Mass Index 23.20 (50.35 kg, 147.32 cm) vc1 Procedures: 03:48 Central Line: the site was prepped with Betadine, in sterile fashion, a triple lumen tam catheter was inserted, in the right in 1 attempts. placement was verified, by blood return, the site was dressed with 4X4s, the patient tolerated the procedure, well. MDM: 01:25 Patient medically screened. tam 01:39 Differential diagnosis: gastritis, cholecystitis, pancreatitis, appendicitis. Data [facility] reviewed: vital signs, nurses notes, lab test result(s), EKG, radiologic studies, plain films. Data interpreted: quality assurance monitor final: rate is 111 beats/min, rhythm is regular, Pulse oximetry: on room air is 100 %. Test interpretation: by ED physician or midlevel provider: ECG, plain radiologic studies. Counseling: I had a detailed discussion with the patient and/or guardian regarding: the historical points, exam findings, and any diagnostic results supporting the discharge/admit diagnosis, lab results, radiology results. 11/19 01:34 Order name: Basic Metabolic Panel; Complete Time: 05:11 [facility] 11/19 01:34 Order name: CBC with Diff; Complete Time: 04:54 [facility] 11/19 01:34 Order name: LFT's; Complete Time: 05:11 [facility] 11/19 01:34 Order name: Magnesium; Complete Time: 05:11 [facility] 11/19 01:34 Order name: NT PRO-BNP; Complete Time: 05:11 [facility] 11/19 01:34 Order name: PT-INR; Complete Time: 04:54 [facility] 11/19 01:34 Order name: Troponin HS; Complete Time: 05:11 [facility] 11/19 01:36 Order name: Glucose, Ancillary Testing; Complete Time: 01:36 EDMS 11/19 01:36 Order name: Lipase; Complete Time: 05:11 [facility] 11/19 01:41 Order name: ABG; Complete Time: 04:54 [facility] 11/19 02:34 Order name: Urine Culture [facility] 11/19 02:34 Order name: Lactate; Complete Time: 04:54 [facility] 11/19 02:34 Order name: Blood Culture Adult (2) [facility] 11/19 02:34 Order name: SARS-COV-2 RT PCR (Document "Date of Onset" if Symptomatic) [facility] 11/19 04:41 Order name: Urine Dipstick-Ancillary; Complete Time: 04:54 EDMS 11/19 04:51 Order name: [facility]rine --Ancillary (enter results) [facility] 11/[facility] 05:32 Order name: Urine --Ancillary; Complete Time: 05:48 EDMS 11/19 05:44 Order name: Glucose, Ancillary Testing; Complete Time: 05:48 EDMS 11/19 07:34 Order name: Glucose, Ancillary Testing EDMS 11/19 08:04 Order name: Basic Metabolic Panel EDMS 11/19 08:04 Order name: Acetone Level EDMS 11/19 08:21 Order name: Glucose, Ancillary Testing EDMS 11/19 09:24 Order name: Glucose, Ancillary Testing EDMS 11/19 10:09 Order name: Hemoglobin A1c EDMS 11/19 10:26 Order name: Glucose, Ancillary Testing EDMS 11/19 11:22 Order name: Glucose, Ancillary Testing EDMS 11/19 11:47 Order name: Basic Metabolic Panel EDMS 11/19 12:15 Order name: Glucose, Ancillary Testing EDMS 11/19 14:11 Order name: Glucose, Ancillary Testing EDMS 11/19 15:38 Order name: Basic Metabolic Panel EDMS 11/19 01:34 Order name: XRAY Chest (1 view) [facility] 11/19 17:30 Order name: Glucose, Ancillary Testing EDMS 11/19 17:42 Order name: Acetone Level EDMS 11/19 19:10 Order name: Glucose, Ancillary Testing EDMS 11/19 20:16 Order name: Glucose, Ancillary Testing EDMS 11/19 20:51 Order name: Glucose, Ancillary Testing EDMS 11/19 22:04 Order name: Glucose, Ancillary Testing EDMS 11/19 23:08 Order name: Glucose, Ancillary Testing EDMS 11/20 00:32 Order name: Glucose, Ancillary Testing EDMS 11/20 01:44 Order name: Glucose, Ancillary Testing EDMS 11/20 02:23 Order name: Glucose, Ancillary Testing EDMS 11/20 02:58 Order name: Basic Metabolic Panel EDMS 11/20 03:45 Order name: Glucose, Ancillary Testing EDMS 11/20 03:54 Order name: CBC with Automated Diff EDMS 11/20 04:08 Order name: Phosphorus EDMS 11/20 04:08 Order name: Lipid Profile EDMS 11/20 04:08 Order name: Magnesium EDMS 11/20 06:02 Order name: Glucose, Ancillary Testing EDMS 11/20 07:39 Order name: Glucose, Ancillary Testing EDMS 11/20 08:09 Order name: Acetone Level EDMS 11/20 08:13 Order name: Comprehensive Metabolic Panel EDMS 11/20 08:19 Order name: Osmolality, Serum EDMS 11/19 01:34 Order name: EKG; Complete Time: 01:54 [facility] 11/19 01:34 Order name: Cardiac monitoring; Complete Time: 01:47 [facility] 11/19 01:34 Order name: EKG - Nurse/Tech; Complete Time: 05:57 [facility] 11/19 01:34 Order name: IV Saline Lock; Complete Time: 05:57 [facility] 11/19 01:34 Order name: Labs collected and sent; Complete Time: 05:57 [facility] 11/19 01:34 Order name: O2 Per Protocol; Complete Time: 05:57 [facility] 11/19 01:34 Order name: O2 Sat Monitoring; Complete Time: 05:57 [facility] 11/19 01:36 Order name: Urine Dipstick-Ancillary (obtain specimen); Complete Time: 04:44 [facility] 11/19 01:36 Order name: Urine Test (obtain specimen); Complete Time: 05:12 [facility] 11/19 01:41 Order name: IV Saline Lock - Large Bore; Complete Time: 04:43 [facility] 11/19 03:48 Order name: Central Line Kit; Complete Time: 04:43 [facility] EC:17 Rate is 118 beats/min. Rhythm is regular. QRS [place] is Normal. VA interval is normal. [facility] QRS interval is normal. QT interval is normal. No Q waves. T waves are Normal. No ST changes noted. Clinical impression: Sinus tachycardia and No evidence of ischemia. Administered Medications: 03:25 Drug: NS 0.9% 1000 ml Route: IV; Rate: 1 bolus; Site: right femoral; lp1 05:34 Follow up: IV Status: Completed infusion; IV Intake: 1000ml lp1 03:25 Drug: Zofran (Ondansetron) 4 mg Route: IVP; Site: right femoral; lp1 04:46 Follow up: Response: No adverse reaction lp1 04:15 Drug: Insulin Regular Human 10 units {Co-Signature: vc1 (Ruthie Alfonso RN).} Route: lp1 IVP; Site: right femoral; 05:34 Follow up: Response: Blood sugar is lowered lp1 04:22 Drug: NS 0.9% 500 ml Route: IV; Rate: bolus; Site: right femoral; lp1 05:00 Follow up: IV Status: Completed infusion; IV Intake: 500ml lp1 05:20 Drug: Rocephin (cefTRIAXone) 1 grams Route: IV; Rate: per protocol; Site: right femoral;lp1 05:56 Follow up: IV Status: Completed infusion; IV Intake: 50ml lp1 05:20 Drug: Sodium Bicarbonate 1 amp Route: IVP; Site: right femoral; lp1 05:56 Follow up: Response: No adverse reaction lp1 05:34 Drug: NS 0.9% 1000 ml Route: IV; Rate: 125 ml/hr; Site: right femoral; lp1 07:22 Follow up: IV Status: Infusion continued upon admission lp1 05:53 Drug: Zofran (Ondansetron) 4 mg Route: IVP; Site: right femoral; lp1 06:30 Follow up: Response: Nausea is decreased lp1 05:54 Drug: NS 0.9% 1000 ml Route: IV; Rate: 1 bolus; Site: right femoral; lp1 07:21 Follow up: IV Status: Completed infusion; IV Intake: 1000ml lp1 06:00 Drug: Insulin Drip - (Insulin Regular Human 100 units, NS 0.9% 100 ml) {Co-Signature: lp1 tw5 (Shahla Mckeon).} Route: IV; Rate: 3 units/hr; Site: right femoral; 07:22 Follow up: IV Status: Infusion continued upon admission lp1 Point of Care Testing: Blood Glucose: 01:26 Blood Glucose: High (>450 mg/dL); vc1 05:33 Blood Glucose: 355 mg/dL; lp1 01:26 Greater than 500 vc1 Ranges: Critical Glucose Levels:Adult <50 mg/dl or >400 mg/dl <40 mg/dl or >180 mg/dl Disposition Summary: 11/19/21 02:36 Hospitalization Ordered Hospitalization Status: Inpatient Admission tam Provider: Shraddha Covington cha Condition: Stable tam Problem: new tam Symptoms: have improved tam Bed/Room Type: Standard tam Location: [facility] ER HOLD(11/19/21 02:56) cg Room Assignment: ERHOLD-(11/19/21 02:56) cg Diagnosis - Type 1 diabetes mellitus with ketoacidosis tam - Vomiting tam - Acidosis tam Forms: - Medication Reconciliation Form tam - SBAR form tam Signatures: Dispatcher [employer] Niko Estrada MD MD cha Pena, Laura RN RN lp1 Minnie Krishna RN RN cg Calcote, Vanessa, RN RN vc1 Kera Arreola PA PA sb3 Ruthie Alfonso RN vc1 Shahla Mckeon tw5 Corrections: (The following items were deleted from the chart) 02:56 02:36 Intensive Care Unit tam cg 02:56 02:36 tam cg
[2021-11-19] MEDS ORDERED: NA CHLORIDE 0.9% 100 ML IV ONE ×2 (03:51→05:20)
[2021-11-19] MEDS ORDERED: CEFTRIAXONE 1000 MG/VIAL ONE (03:51)
[2021-11-19 04:13] LABS: Absolute Lymphocytes (CBC) 1.3 K/uL (0.7-4.9); Hematocrit 41.6 % (36.0-45.0); Lymphocytes % 13.8 % (15.3-44.8); MPV 8.4 fL (7.6-11.3); RBC Red Blood Cell Count 4.75 M/uL (3.86-4.86)
[2021-11-19 04:16] LABS: Protime INR 1.14
--- NOTE | 2021-11-19 04:34 | P.HP ---
Certification for Inpatient Patient admitted to: Inpatient With expected LOS: >2 Midnights Patient will require the following post-hospital care: None Practitioner: I am a practitioner with admitting privileges, knowledge of patient current condition, hospital course, and medical plan of care. Services: Services provided to patient in accordance with Admission requirements found in Title 42 Section 412.3 of the Code of Federal Regulations Patient History Date of Service: 11/19/21 Reason for admission: DKA History of Present Illness: Patient is a 31-year-old female with type 1 diabetes who presented to the ED with her and cousin stating that she was experiencing nausea, vomiting, chills, and shaking. They were concerned she was having a DKA episode. Initial glucose was greater than 500. She was started on DKA protocol. ABG resulted in a pH of 7.2, PCO2 17.8, PO2 125, bicarb 6.7. WBC and potassium within normal limits. Sodium 131. Vital signs remained stable. Will admit patient on DKA protocol. Allergies ibuprofen Adverse Reaction (Verified 10/29/18 09:02) Nausea/Vomiting oseltamivir [From Tamiflu] Adverse Reaction (Verified 10/29/18 09:02) Hives/Rash Penicillins Adverse Reaction (Verified 10/29/18 09:02) Itching/Hives/Rash Sulfa (Sulfonamide Antibiotics) Adverse Reaction (Verified 10/29/18 09:02) Itching/Hives/Rash Home Medications: Gabapentin 300 mg PO BID 10/29/18 Insulin Degludec [Tresiba] 22 unit SQ BEDTIME 07/23/20 Insulin Lispro [Humalog] 4 unit SQ AC 07/23/20 Insulin Lispro [Humalog] See Protocol SQ AC 07/23/20 Ondansetron [Zofran] 4 mg PO Q8H PRN 5 Days #15 tab 07/24/20 Potassium Chloride [Klor-Con 10] 10 meq PO DAILY 5 Days #5 tablet.er 07/24/20 levoFLOXacin [Levaquin] 750 mg PO DAILY 5 Days #5 tab 07/24/20 - Past Medical/Surgical History Diabetic: Yes -: diabetes mellitus I -: neuropathy -: ankle sx - Family History Father -: Diabetes - Social History Smoking Status: Never smoker Alcohol use: Yes CD- Drugs: No Caffeine use: Yes Place of Residence: Home Review of Systems General: Chills Gastrointestinal: Nausea, Vomiting Physical Examination - Physical Exam General: Alert, In no apparent distress HEENT: Atraumatic, PERRLA, Mucous membr. moist/pink, EOMI, Sclerae nonicteric Neck: Supple, 2+ carotid pulse no bruit, No LAD, Without JVD or thyroid abnormality Respiratory: Clear to auscultation bilaterally, Normal air movement Cardiovascular: Regular rate/rhythm, Normal S1 S2 Gastrointestinal: Normal bowel sounds, No tenderness Musculoskeletal: No tenderness Integumentary: No rashes Neurological: Normal speech, Normal strength at 5/5 x4 extr, Normal tone, Normal affect Assessment and Plan - Problems (Diagnosis) (1) DKA, type 1 Current Visit: No Status: Chronic Qualifiers: - Plan DKA protocol ordered. CMP machine was malfunctioning overnight and took a while to get patient's results. She has now received 1 amp of bicarb and is just getting started on insulin drip. We will continue to monitor glucose every 1 hour. Patient states she is feeling cold and pain all over however she is improved than when she initially came in. Alert and oriented x3. No signs of infection at this time. Given 1 dose Rocephin in the ED. Lovenox for DVT prophylaxis. Discharge Plan: Home Plan to discharge in: 48 Hours - Advance Directives Does patient have a Living Will: No Does patient have a Durable POA for Healthcare: No - Code Status/Comfort Care Code Status Assessed: Yes (Full) Time Spent Managing Pts Care (In Minutes): 70
[2021-11-19 04:40] LABS: Urine Blood 1+ (Negative); Urine Glucose 2+ (Negative); Urine Protein Negative (Negative); Urine Specific Gravity 1.025 (1.005-1.030); Urine pH 5.5 (5.0-7.0)
[2021-11-19 04:59] LABS: ALT/SGPT 18 U/L (12-78); AST/SGOT 11 U/L (15-37); Albumin 3.3 g/dL (3.4-5.0); Alkaline Phosphatase 110 U/L (45-117); BUN Blood Urea Nitrogen 19 mg/dL (7-18); Bilirubin Total 0.5 mg/dL (0.2-1.0); Lipase 132 U/L (73-393); Magnesium 2.1 mg/dL (1.8-2.4); NT PRO-BNP 32 pg/mL (<125); Potassium 4.5 mmol/L (3.5-5.1); Protein, Total 7.3 g/dL (6.4-8.2); Sodium Level 131 mmol/L (136-145)
[2021-11-19 05:00] LABS: Bicarbonate < 8 mmol/L (21-32); Bilirubin Direct < 0.1 mg/dL (0-0.2); Glucose Level 604 mg/dL (74-106); Troponin High Sensitivity < 3.0 pg/mL (<58.9)
[2021-11-19] MEDS ORDERED: SODIUM BICARB 50 MEQ/50ML VIAL ONE (05:20)
[2021-11-19 05:32] LABS: Urine Specific Gravity/Preg 1.025 (1.005-1.030)
[2021-11-19] MEDS ORDERED: NACHLORIDE 0.45% 1,000 ML IV SCH (05:55)
[2021-11-19] MEDS ORDERED: D5 0.45 NS 1,000 ML IV SCH (05:55)
[2021-11-19] MEDS ORDERED: ONDANSETRON 4 MG/2 ML VIAL IV PRN (05:55)
[2021-11-19] MEDS ORDERED: NA CHLORIDE 0.9% 1,000 ML IV ONE (05:55)
[2021-11-19] MEDS ORDERED: INSULIN -REGULAR HUMAN 100 UNIT in NA CHLORIDE 0.9% 100 ML IV SCH (05:55)
[2021-11-19] MEDS ORDERED: NA CHLORIDE 0.9% 1,000 ML ONE (07:01)
[2021-11-19 07:59] LABS: BUN Blood Urea Nitrogen 14 mg/dL (7-18); Glucose Level 307 mg/dL (74-106); Potassium 3.2 mmol/L (3.5-5.1); Sodium Level 141 mmol/L (136-145)
[2021-11-19 08:03] LABS: Bicarbonate 11 mmol/L (21-32)
[2021-11-19] MEDS ORDERED: D5 0.45 NS 1,000 ML IV ONE (08:21)
[2021-11-19 08:47] VITALS: BMI 22.9
[2021-11-19] MEDS: ENOXAPARIN 40 MG/0.4 ML SQ SCH (09:00)
[2021-11-19] MEDS ORDERED: ENOXAPARIN 40 MG/0.4 ML SQ ONE (09:21)
[2021-11-19] MEDS ORDERED: MORPHINE 2 MG/ML SYR IV PRN (09:50)
[2021-11-19] MEDS ORDERED: MORPHINE 2 MG/ML SYR ONE (09:52)
[2021-11-19 11:42] LABS: BUN Blood Urea Nitrogen 11 mg/dL (7-18); Bicarbonate 17 mmol/L (21-32); Glucose Level 229 mg/dL (74-106); Potassium 3.3 mmol/L (3.5-5.1); Sodium Level 140 mmol/L (136-145)
[2021-11-19] MEDS ORDERED: INSULIN GLARGINE 100 UNIT/ML SQ ONE ×2 (12:43→13:56)
[2021-11-19] MEDS ORDERED: NA CHLORIDE 0.9% 1,000 ML IV SCH (13:00)
[2021-11-19 15:38] LABS: BUN Blood Urea Nitrogen 9 mg/dL (7-18); Bicarbonate 15 mmol/L (21-32); Glucose Level 157 mg/dL (74-106); Potassium 3.5 mmol/L (3.5-5.1); Sodium Level 142 mmol/L (136-145)
--- NOTE | 2021-11-19 17:24 | RAD REPORT ---
EXAM DESCRIPTION: RAD - Chest Single View - 11/19/2021 2:05 am CLINICAL HISTORY: The patient is 31 years old and is Female; COUGH TECHNIQUE: Frontal view of the chest. COMPARISON: No relevant prior studies available. FINDINGS: Lungs: Unremarkable. No consolidation. Pleural space: Unremarkable. No pneumothorax. Heart: Unremarkable. Mediastinum: Unremarkable. Bones/joints: Unremarkable. IMPRESSION: No acute findings in the chest. Electronically signed by: Tobias Rao MD 11/19/2021 2:16 AM CDT Due to temporary technical issues with the PACS/Fluency reporting system, reports are being signed by the in house radiologists without review as a courtesy to insure prompt reporting. The interpreting radiologist is fully responsible for the content of the report.
[2021-11-19] MEDS: D5W 1,000 ML IV SCH (19:00)
[2021-11-19] MEDS ORDERED: D5W 1,000 ML IV ONE (19:09)
[2021-11-20] MEDS: D5W 1,000 ML IV SCH (01:40)
[2021-11-20 02:00] VITALS: TEMP 98.4
[2021-11-20 02:58] LABS: BUN Blood Urea Nitrogen 6 mg/dL (7-18); Bicarbonate 17 mmol/L (21-32); Glucose Level 219 mg/dL (74-106); Potassium 3.3 mmol/L (3.5-5.1); Sodium Level 138 mmol/L (136-145)
[2021-11-20 03:53] LABS: Absolute Lymphocytes (CBC) 1.7 K/uL (0.7-4.9); Hematocrit 31.6 % (36.0-45.0); Lymphocytes % 24.6 % (15.3-44.8); MPV 8.6 fL (7.6-11.3); RBC Red Blood Cell Count 3.71 M/uL (3.86-4.86)
[2021-11-20 04:08] LABS: HDL Cholesterol 37 mg/dL (40-60); LDL Cholesterol, Calculated 162 mg/dL (<130); Magnesium 1.8 mg/dL (1.8-2.4); Phosphorus 1.8 mg/dL (2.5-4.9)
[2021-11-20] MEDS ORDERED: POTASSIUM 25 MEQ EFFERV TAB PO ONE (04:24)
[2021-11-20] MEDS ORDERED: D50W 25 GM/50 ML SYRINGE IV PRN (04:25)
[2021-11-20] MEDS ORDERED: GLUCAGON 1 MG/VIAL IM PRN (04:25)
[2021-11-20] MEDS: INSULIN -REGULAR HUMAN 50 UNIT/0.5 ML ML SQ SCH ×3 (04:30→08:18)
[2021-11-20] MEDS ORDERED: POTASSIUM 25 MEQ EFFERV TAB ONE (07:01)
[2021-11-20 08:03] LABS: ALT/SGPT 12 U/L (12-78); AST/SGOT 8 U/L (15-37); Albumin 2.3 g/dL (3.4-5.0); Alkaline Phosphatase 69 U/L (45-117); BUN Blood Urea Nitrogen 6 mg/dL (7-18); Bicarbonate 21 mmol/L (21-32); Bilirubin Total 0.2 mg/dL (0.2-1.0); Glucose Level 147 mg/dL (74-106); Potassium 3.2 mmol/L (3.5-5.1); Sodium Level 142 mmol/L (136-145)
[2021-11-20] MEDS: ENOXAPARIN 40 MG/0.4 ML SQ SCH (08:18)
[2021-11-20 09:22] VITALS: BP 106/72
--- NOTE | 2021-11-20 09:38 | P.DS ---
Discharge Date: 11/20/21 Disposition: ROUTINE DISCHARGE Discharge Condition: GOOD Reason for Admission: DKA Vital Signs/Physical Exam: Temp Pulse Resp BP Pulse Ox 98.4 F 108 H 20 106/72 99 11/20/21 07:45 11/20/21 09:00 11/20/21 09:00 11/20/21 09:00 11/20/21 09:00 Laboratory Data at Discharge: WBC 7.0 K/uL (4.3-10.9) D 11/20/21 02:21 Hgb 10.8 g/dL (12.0-15.0) L D 11/20/21 02:21 Hct 31.6 % (36.0-45.0) L D 11/20/21 02:21 Plt Count 255 K/uL (152-406) D 11/20/21 02:21 PT 12.6 SECONDS (9.5-12.5) H 11/19/21 03:45 INR 1.14 11/19/21 03:45 Sodium 142 mmol/L (136-145) 11/20/21 07:26 Sodium Cancelled 11/20/21 07:26 Potassium 3.2 mmol/L (3.5-5.1) L 11/20/21 07:26 Potassium Cancelled 11/20/21 07:26 BUN 6 mg/dL (7-18) L 11/20/21 07:26 BUN Cancelled 11/20/21 07:26 Creatinine 0.52 mg/dL (0.55-1.3) L 11/20/21 07:26 Creatinine Cancelled 11/20/21 07:26 Glucose 147 mg/dL (74-106) H 11/20/21 07:26 Glucose Cancelled 11/20/21 07:26 Phosphorus 1.8 mg/dL (2.5-4.9) L 11/20/21 02:24 Phosphorus Cancelled 11/20/21 02:24 Magnesium 1.8 mg/dL (1.8-2.4) 11/20/21 02:24 Magnesium Cancelled 11/20/21 02:24 Total Bilirubin 0.2 mg/dL (0.2-1.0) 11/20/21 07:26 AST 8 U/L (15-37) L 11/20/21 07:26 ALT 12 U/L (12-78) 11/20/21 07:26 Alkaline Phosphatase 69 U/L (45-117) 11/20/21 07:26 Triglycerides 234 mg/dL (<150) H 11/20/21 02:24 Triglycerides Cancelled 11/20/21 02:24 Cholesterol 246 mg/dL (<200) H 11/20/21 02:24 Cholesterol Cancelled 11/20/21 02:24 HDL Cholesterol 37 mg/dL (40-60) L 11/20/21 02:24 HDL Cholesterol Cancelled 11/20/21 02:24 Cholesterol/HDL Ratio 6.65 11/20/21 02:24 Cholesterol/HDL Ratio Cancelled 11/20/21 02:24 Lipase 132 U/L (73-393) 11/19/21 03:45 Home Medications: Gabapentin 300 mg PO BID 10/29/18 Insulin Lispro [Humalog] 4 unit SQ AC 07/23/20 Insulin Lispro [Humalog] See Protocol SQ AC 07/23/20 Insulin Degludec [Tresiba] 22 unit SQ BEDTIME #1 vial 11/19/21 New Medications: Insulin Degludec [Tresiba] 22 unit SQ BEDTIME #1 vial Physician Discharge Instructions: PROBLEM: High blood sugar, DKA GOAL: Clear understanding of disease process INSTRUCTIONS: Follow up with primary care doctor as discussed Diet: Diabetic diet MONITOR BLOOD SUGARS CLOSELY AT HOME Diet: ADA Activity: Fall precautions Followup: NONE,NONE [Primary Care Provider] -
[2021-11-20 12:47] VITALS: O2SAT 100
[2021-11-20] MEDS ORDERED: INSULIN -REGULAR HUMAN 50 UNIT/0.5 ML ML SQ ONE (18:30)
[2021-11-20] MEDS ORDERED: GABAPENTIN 300 MG CAP PO SCH (21:00)
[2021-11-21] MEDS ORDERED: INSULIN 70/30 100 UNITS/ML SQ ONE (09:17)
== END 2021-11-20 10:26 | disposition home or self-care (01) | DRG 639 ==
LOC: ER 00:32 → ERHOLD 02:49
PROVIDERS: ADMIT Hospitalist; ATTEND Hospitalist
PROC: 06HY33Z Insertion of Infusion Device into Lower Vein, Percutaneous Approach (ICD-10-PCS; principal; 2021-11-19)
DX: E10.10 Type 1 diabetes mellitus with ketoacidosis without coma (principal); Z88.0 Allergy status to penicillin; Z88.2 Allergy status to sulfonamides; Z79.4 Long term (current) use of insulin; Z20.822 Contact with and (suspected) exposure to COVID-19
CPT/HCPCS: 36415; 71045; 80048; 80053; 80061; 80076; 81003; 81025; 82010; 82805; 82947; 83036; 83605; 83690; 83735; 83880; 83930; 84100; 84484; 85025; 85610; 87040; 87086; 87088; 93005; 96361; 96365; 96367; 96375; 99285; J1650; J1815; J2270; J2405; J7030; J7040; J7799; U0003

== ENCOUNTER 2022-03-30 17:10 | Emergency (ER) | payer OTHER ==
--- OUTSIDE RECORDS SUMMARY | 2022-03-30 17:13 | XMS REPORT | Continuity of Care Document ---
:1990 Author Organization [facility] t Address [address] [place] [address] Care Team Providers Name Role Phone SHERIE DICKINSON Attending Clinician Unavailable Sherie Dickinson MD Attending Clinician Payers Payer Name Policy Type Policy Number Effective Date Expiration Date S conrado [facility] [id number] 2019 PLUS 00:00:00 MEDICAID [place] [id number] 2019 00:00:00 Problems This patient has no known problems. Allergies, Adverse Reactions, Alerts Allergy Allergy Status Severity Reaction(s) Onset Inactive Treating Comm ents Source Name Type Date Date Clinician SULFA Drug Active Unknown-Cmnt Univ ers (SULFONA Class 9-01 ity of MIDE 00:00: [place] ANTIBIOT 00 Medical [facility]) Branch ibuprofe DA Active U [facility] n 03-21 [facility] sulfamet DA Active SV [facility] hoxazole 03-21 [facility] 00:[facility]: d [facility] trimetho DA Active SV [facility] prim 03-21 [facility] 00:[facility]: d [facility] penicill DA Active U [facility] in G 03-21 [facility] 00:00: d 00 [facility] shellfis DA Active SV [facility] h 03-21 [facility] derived 00:00: d 00 [facility] spinach DA Active MO [facility] 03-21 [facility] 00:00: d [facility] Penicill DA Active U [facility] ins 03-21 [facility] 00:[facility]: d [facility] Sulfa DA Active U [facility] (Sulfona 03-21 [facility] mide 00:00: d Antibiot Medical [facility]) Center MUSHROOM DA Active MO [facility] S 10-09 [facility] 00:00: d 00 [facility] Center PENICILL Drug Active Rash Univers INS Class 12-18 ity of 00:: 00 [facility] Medications This patient has no known medications. Procedures This patient has no known procedures. Encounters Start End Encounter Admission Attending Care Care Encounter Source Date/Time Date/Time Type Type Clinicians Facility Department ID 2020-12-12 2020-12-12 [facility] [id number] Univers 13:30:00 13:30:00 SHERIE [id number] [facility] 2020-12-12 2020-12-12 [facility] [id number] Univers 13:30:00 13:30:00 SHERIE [facility] 2020-06-20 2020-06-20 Outpatient [facility] [id number] Univers 12:45:00 12:45:00 [facility] 2020-06-20 2020-06-20 [facility] [id number] 10:27:33 12:32:24 Visit Sherie Sandoval [id number] Vanessa [id number] [id number] [address] 2020-06-20 2020-06-20 [facility] [id number] Univers 11:00:00 11:00:00 SHERIE [facility] Results This patient has no known results.
--- NOTE | 2022-03-30 18:23 | RAD REPORT ---
EXAM DESCRIPTION: RAD - Ankle Left 3 View -03/30/2022 6:04 pm CLINICAL HISTORY: Left ankle pain FINDINGS: No fracture or dislocation is seen.
--- NOTE | 2022-03-30 18:23 | RAD REPORT ---
EXAM DESCRIPTION: RAD - Foot Left 3 View - 03/30/2022 6:04 pm CLINICAL HISTORY: Left Foot pain FINDINGS: No fracture or dislocation is seen.
--- NOTE | 2022-03-30 19:05 | ER ---
Nurse's Notes [facility] Name: Cristina Wheeler Age: 31 yrs Sex: Female : 1990 Arrival Date: 03/30/2022 Time: 17:12 Bed 11 Private MD: Ramsey Casey Diagnosis: Pain in ankle and joints of foot Presentation: 03/30 17:43 Chief complaint: Left ankle and foot pain after fall from standing 1 week ago. hb Coronavirus screen: At this time, the client does not indicate any symptoms associated with coronavirus-19. Ebola Screen: No symptoms or risks identified at this time. Initial Sepsis Screen: Does the patient meet any 2 criteria? No. Patient's initial sepsis screen is negative. Does the patient have a suspected source of infection? No. Patient's initial sepsis screen is negative. Risk Assessment: Do you want to hurt yourself or someone else? Patient reports no desire to harm self or others. Onset of symptoms was March 23, 2022. 17:43 Method Of Arrival: Wheelchair hb 17:43 Acuity: KM 4 hb Triage Assessment: 19:30 General: Appears in no apparent distress. comfortable, Behavior is calm, cooperative. ha1 Pain: Complains of pain in left foot. Historical: - Allergies: 17:44 flu medication; hb 17:44 PENICILLINS; hb 17:44 Spinach; hb 17:44 Sulfa (Sulfonamide Antibiotics); hb - Home Meds: 17:44 gabapentin Oral [Active]; Tresiba FlexTouch U-100 100 unit/mL (3 mL) subcutaneous inpn hb [Active]; - PMHx: 17:44 Arthritis; Diabetes - IDDM; neuropathy; hb - Immunization history:: Adult Immunizations unknown. - Social history:: Smoking status: Patient reports the use of cigarette tobacco products, smokes one pack cigarettes per day. Patient uses alcohol, occasionally. Screenin:29 Abuse screen: Denies threats or abuse. Denies injuries from another. Nutritional ha1 screening: No deficits noted. On. Tuberculosis screening: No symptoms or risk factors identified. Fall Risk None identified. Vital Signs: 17:43 BP 108 / 87; Pulse 104; Resp 16; Temp 98.1; Pulse Ox 100% on R/A; Weight 54.43 kg; hb Height 4 ft. 10 in. (147.32 cm); Pain 8/10; 17:43 Body Mass Index 25.08 (54.43 kg, 147.32 cm) ED Course: 17:12 Patient arrived in ED. mr 17:13 Ramsey Casey DO is Private Physician. mr 17:16 William Hayes DO is Attending Physician. ms3 17:44 Triage completed. hb 17:44 Arm band placed on. hb 18:06 Foot Left 3 View XRAY In Process Unspecified. EDMS 18:06 Ankle Left 3 View XRAY In Process Unspecified. EDMS 18:52 Hattie Camarillo, RN is Primary Nurse. iw 19:04 Rene Lugo MD is Referral Physician. ms3 19:23 Primary Nurse role handed off by Hattie Camarillo RN mw2 19:28 So Ordonez, YOAN is Primary Nurse. ha1 19:29 Patient has correct armband on for positive identification. Call light in reach. Side ha1 rails up X 1. Client placed on continuous cardiac and pulse oximetry monitoring. NIBP monitoring applied. Door closed. Noise minimized. Family accompanied patient. 19:29 No provider procedures requiring assistance completed. Patient did not have IV access ha1 during this emergency room visit. Administered Medications: No medications were administered Medication: 19:30 VIS not applicable for this client. ha1 Outcome: 19:04 Discharge ordered by . ms3 19:30 Discharged to home via wheelchair, with crutches, with significant other. ha1 19:30 Condition: stable 19:30 Discharge instructions given to patient, Instructed on discharge instructions, follow up and referral plans. Demonstrated understanding of instructions, follow-up care, crutch walking. 19:31 Patient left the ED. ha1 Signatures: Dispatcher [employer] [facility] Ines Chavarria mr Hattie Camarillo RN RN Jolene Owusu RN RN Vanesa Sanchez 2 William Hayes DO DO ms3 So Ordonez RN RN ha1
--- NOTE | 2022-03-30 19:06 | EDPHYS ---
Physician Documentation [facility] Name: Cristina Wheeler Age: 31 yrs Sex: Female : 1990 Arrival Date: 03/30/2022 Time: 17:12 Bed 11 Private MD: Ramsey Casey ED Physician William Hayes HPI: 03/30 19:04 This 31 yrs old Female presents to ER via Wheelchair with complaints of Leg Pain. ms3 19:04 The patient presents with a contusion, pain, swelling. The complaints affect the left ms3 foot. Context: resulted from the patient falling, the patient can partially bear weight. Onset: The symptoms/episode began/occurred 6 day(s) ago. Modifying factors: The symptoms are alleviated by nothing. the symptoms are aggravated by weight bearing. Associated signs and symptoms: Pertinent positives: swelling, Pertinent negatives tingling, weakness. Treatment prior to arrival includes: cade wrap, elevation of the extremity, icing the affected extremity. Severity of symptoms: At their worst the symptoms were severe, in the emergency department the symptoms have improved, a " 5" out of "10". Historical: - Allergies: 17:44 flu medication; hb 17:44 PENICILLINS; hb 17:44 Spinach; hb 17:44 Sulfa (Sulfonamide Antibiotics); hb - Home Meds: 17:44 gabapentin Oral [Active]; Tresiba FlexTouch U-100 100 unit/mL (3 mL) subcutaneous inpn hb [Active]; - PMHx: 17:44 Arthritis; Diabetes - IDDM; neuropathy; hb - Immunization history:: Adult Immunizations unknown. - Social history:: Smoking status: Patient reports the use of cigarette tobacco products, smokes one pack cigarettes per day. Patient uses alcohol, occasionally. ROS: 19:04 Constitutional: Negative for fever, and chills. ENT: Negative for injury, pain, and ms3 discharge, Neck: Negative for injury, pain, and swelling, Cardiovascular: Negative for chest pain, and palpitations. Respiratory: Negative for shortness of breath, cough, wheezing, and pleuritic chest pain, Abdomen/GI: Negative for abdominal pain, nausea, vomiting, diarrhea, and constipation. 19:04 MS/extremity: Positive for ecchymosis, swelling, tenderness. Exam: 19:04 Constitutional: This is a well developed, well nourished patient who is awake, alert, ms3 and in no acute distress. Cardiovascular: Regular rate and rhythm with a normal S1 and S2. No gallops, murmurs, or rubs. Normal PMI, no JVD. No pulse deficits. Respiratory: Lungs have equal breath sounds bilaterally, clear to auscultation and percussion. No rales, rhonchi or wheezes noted. No increased work of breathing, no retractions or nasal flaring. Abdomen/GI: Soft, non-tender, with normal bowel sounds. No distension or tympany. No guarding or rebound. No evidence of tenderness throughout. 19:04 Skin: Warm, dry with normal turgor. Normal color with no rashes, no lesions, and no evidence of cellulitis. MS/ Extremity: Pulses equal, no cyanosis. Neurovascular intact. Full, normal range of motion. Psych: Awake, alert, with orientation to person, place and time. Behavior, mood, and affect are within normal limits. 19:04 Musculoskeletal/extremity: Extremities: noted in the left foot: contusion, pain, swelling, tenderness. Vital Signs: 17:43 BP 108 / 87; Pulse 104; Resp 16; Temp 98.1; Pulse Ox 100% on R/A; Weight 54.43 kg; hb Height 4 ft. 10 in. (147.32 cm); Pain 8/10; 17:43 Body Mass Index 25.08 (54.43 kg, 147.32 cm) hb MDM: 18:56 Patient medically screened. ms3 19:04 Differential diagnosis: closed fracture, contusion, strain/ sprain. Data reviewed: ms3 vital signs, nurses notes, radiologic studies, plain films, and as a result, I will discharge patient. Counseling: I had a detailed discussion with the patient and/or guardian regarding: the historical points, exam findings, and any diagnostic results supporting the discharge/admit diagnosis, radiology results, the need for outpatient follow up, to return to the emergency department if symptoms worsen or persist or if there are any questions or concerns that arise at home. Special discussion: I discussed with the patient/guardian in detail that at this point there is no indication for admission to the hospital. It is understood, however, that if the symptoms persist or worsen the patient needs to return immediately for re-evaluation. 03/30 17:38 Order name: Foot Left 3 View XRAY; Complete Time: 18:56 ms3 03/30 17:38 Order name: Ankle Left 3 View XRAY; Complete Time: 18:56 ms3 03/30 19:05 Order name: Crutches; Complete Time: 19:29 ms3 03/30 19:05 Order name: Cade Wrap; Complete Time: 19:29 ms3 Administered Medications: No medications were administered Disposition Summary: 03/30/22 19:04 Discharge Ordered Location: Home ms3 Condition: Stable ms3 Diagnosis - Pain in ankle and joints of foot ms3 Followup: ms3 - With: Rene Lugo MD - When: 2 - 3 days - Reason: Recheck today's complaints Discharge Instructions: - Discharge Summary Sheet ms3 - Foot Pain ms3 Forms: - Medication Reconciliation Form ms3 - Thank You Letter ms3 - Antibiotic Education ms3 - Prescription Opioid Use ms3 Signatures: Dispatcher [employer] Jolene Cotter, RN YOAN William Hayes DO DO ms3 So Ordonez, RN RN ha1
[2022-03-30 20:39] VITALS: BP 108/87; O2SAT 100
[2022-03-30 20:46] VITALS: TEMP 102.9
== END 2022-03-30 19:31 | disposition home or self-care (01) ==
LOC: ER 17:10
DX: M25.572 Pain in left ankle and joints of left foot (principal); E11.40 Type 2 diabetes mellitus with diabetic neuropathy, unspecified; F17.210 Nicotine dependence, cigarettes, uncomplicated; Z79.4 Long term (current) use of insulin; Z88.0 Allergy status to penicillin; Z88.2 Allergy status to sulfonamides; Z88.8 Allergy status to other drugs, medicaments and biological substances; Z91.018 Allergy to other foods
CPT/HCPCS: 99283

== ENCOUNTER 2022-05-01 03:20 | Inpatient (IN) | payer OTHER ==
--- OUTSIDE RECORDS SUMMARY | 2022-05-01 03:24 | XMS REPORT | Continuity of Care Document ---
:1990 Author Organization [facility] t Address [address] [place] [address] Care Team Providers Name Role Phone Provider, Unknown Primary Care Physician Unavailable SHERIE DICKINSON Attending Clinician Unavailable Sherie Dickinson MD Attending Clinician Payers Payer Name Policy Type Policy Number Effective Date Expiration Date [facility] [id number] 2019 PLUS 00:00:00 [place]ICAID [place] [id number] 2019 00:00:00 Problems This patient has no known problems. Allergies, Adverse Reactions, Alerts Allergy Allergy Status Severity Reaction(s) Onset Inactive Treating Comm ents Source Name Type Date Date Clinician SULFA Drug Active Unknown-Cmnt Univ ers (SULFONA Class - ity of MIDE 00:00: [place] ANTIBIOT 00 Medical [facility]) Branch Penicill DA Active U [facility]- [facility] ins 03-21 [facility] 00:[facility]: d [facility] Sulfa DA Active U [facility]- [facility] (Sulfona 03-21 [facility] mide 00:00: d Antibiot 00 Medical ics) Center ibuprofe DA Active U 2017- [facility] n 03-21 [facility] 00:00: d 00 [facility] sulfamet DA Active SV [facility] hoxazole 03-21 [facility] 00:00: d 00 [facility] trimetho DA Active SV [facility] prim 03-21 [place] 00:00: d 00 [facility] penicill DA Active U [facility] in G 03-21 [facility] 00:00: d 00 [facility] shellfis DA Active SV [facility] h 03-21 [facility] derived 00:00: d 00 [facility] spinach DA Active [facility] 03-21 [facility] 00:00: d 00 [facility] Ibuprofe Propensi Active Method i n ty to 11-15 st adverse 00:00: Hospita reaction 00 l s to drug Sulfa Propensi Active Methodi (Sulfona ty to 11-15 st mide adverse 00:00: Hospita Antibiot reaction 00 l ics) s to drug MUSHROOM DA Active MO [facility] S 10-09 [facility] 00:00: d 00 [facility] PENICILL Drug Active Rash Univers INS Class 5-06 ity of 00:00: [address] Social History Social Habit Start Date Stop Date Quantity Comments Source Tobacco use and 2017-11-15 2017-11-15 Smokeless tobacco [facility] exposure 00:[facility]:00 non-user Hospital Alcohol intake 2017-11-15 2017-11-15 Current drinker of [facility] 00:00:00 00:00:00 alcohol (finding) Hospita l Alcohol Comment 2017-11-15 2017-11-15 occasional Jew 00:00:00 00:00:00 Hospital Sex Ass[birth year] At [birth year] Jew 00:00:00 00:00:00 Hospital Smoking Status Start Date Stop Date Source Never smoked tobacco [facility] Medications Ordered Filled Start Stop Current Ordering Indication Dosage Frequency Signature Comments Components Source Medication Medication Date Date Medication? Clinician (SIG) Name Name No known No No known Metho di medications 11-[address] 06:03: s Hospita 15 l Procedures This patient has no known procedures. Encounters Start End Encounter Admission Attending Care Care Encounter Source Date/Time Date/Time Type Type Clinicians Facility Department ID 2020-12-12 2020-12-12 Outpatient R ALOK [facility] [id number] Univers 13:30:00 13:30:00 SHERIE [id number] [facility] 2020-12-12 2020-12-12 [facility] [id number] Univers 13:30:00 13:30:00 SHERIE genet [facility] 2020-06-20 2020-06-20 Outpatient [facility] [id number] Univers 12:45:00 12:45:00 [facility] 2020-06-20 2020-06-20 [facility] [id number] 10:27:33 12:32:24 Visit Sherie Sandoval [id number] Vanessa [id number] Professsharmin [id number] [address] 2020-06-20 2020-06-20 Outpatient R ALOK [facility] [id number] Univers 11:00:00 11:00:00 SHERIE genet [facility] Results This patient has no known results.
[2022-05-01 04:06] LABS: Arterial Blood Carboxyhemoglob 1.7 % (0-1.5); Blood Gas Oxyhemoglobin 95.3 % (94-97); Blood O2 Saturation 98.2 % (92-98.5)
--- NOTE | 2022-05-01 04:25 | EDPHYS ---
Physician Documentation [facility] Name: Cristina Wheeler Age: 31 yrs Sex: Female : 1990 Arrival Date: 05/01/2022 Time: 03:26 Bed 5 Private MD: ABNER Physician Niko Leon HPI: 05/01 04:18 This 31 yrs old Female presents to ER via EMS with complaints of weak, tam vomiting , dka. 04:18 The patient presents to the emergency department with nausea, that is moderate, tam vomiting, that is intermittent, described as bilious, undigested food. Onset: The symptoms/episode began/occurred 1 day(s) ago. Possible causes: unknown. The symptoms are aggravated by nothing. The symptoms are alleviated by nothing. hx dka. Associated signs and symptoms: Pertinent positives: abdominal pain, nausea, vomiting. Severity of symptoms: At their worst the symptoms were moderate in the emergency department the symptoms are unchanged. The patient has experienced similar episodes in the past, multiple times. Historical: - Allergies: 03:38 flu medication; jb4 03:38 PENICILLINS; jb4 03:38 Spinach; jb4 03:38 Sulfa (Sulfonamide Antibiotics); jb4 - Home Meds: 03:38 gabapentin Oral [Active]; Tresiba FlexTouch U-100 100 unit/mL (3 mL) subcutaneous inpn jb4 [Active]; Humolog [Active]; - PMHx: 03:38 Arthritis; Diabetes - IDDM; neuropathy; jb4 - Immunization history:: Adult Immunizations up to date. - Social history:: Smoking status: Reported history of juuling and/or vaping. - Family history:: not pertinent. ROS: 04:18 Constitutional: Negative for fever, chills, and weight loss, Eyes: Negative for injury, tam pain, redness, and discharge, ENT: Negative for injury, pain, and discharge, Neck: Negative for injury, pain, and swelling, Cardiovascular: Negative for chest pain, palpitations, and edema, Respiratory: Negative for shortness of breath, cough, wheezing, and pleuritic chest pain, Back: Negative for injury and pain, : Negative for injury, bleeding, discharge, and swelling, MS/Extremity: Negative for injury and deformity, Neuro: Negative for headache, weakness, numbness, tingling, and seizure, Psych: Negative for depression, anxiety, suicide ideation, homicidal ideation, and hallucinations, Allergy/Immunology: Negative for hives, rash, and allergies, Endocrine: Negative for neck swelling, polydipsia, polyuria, polyphagia, and marked weight changes, Hematologic/Lymphatic: Negative for swollen nodes, abnormal bleeding, and unusual bruising. 04:18 Abdomen/GI: Positive for abdominal pain, nausea and vomiting. Exam: 04:18 Constitutional: This is a well developed, well nourished patient who is awake, alert, tam and in no acute distress. Head/Face: Normocephalic, atraumatic. Eyes: Pupils equal round and reactive to light, extra-ocular motions intact. Lids and lashes normal. Conjunctiva and sclera are non-icteric and not injected. Cornea within normal limits. Periorbital areas with no swelling, redness, or edema. ENT: Nares patent. No nasal discharge, no septal abnormalities noted. Tympanic membranes are normal and external auditory canals are clear. Oropharynx with no redness, swelling, or masses, exudates, or evidence of obstruction, uvula midline. Mucous membranes moist. Neck: Trachea midline, no thyromegaly or masses palpated, and no cervical lymphadenopathy. Supple, full range of motion without nuchal rigidity, or vertebral point tenderness. No Meningismus. Chest/axilla: Normal chest wall appearance and motion. Nontender with no deformity. No lesions are appreciated. Respiratory: Lungs have equal breath sounds bilaterally, clear to auscultation and percussion. No rales, rhonchi or wheezes noted. No increased work of breathing, no retractions or nasal flaring. Abdomen/GI: Soft, non-tender, with normal bowel sounds. No distension or tympany. No guarding or rebound. No evidence of tenderness throughout. Back: No spinal tenderness. No costovertebral tenderness. Full range of motion. Female : Normal external genitalia. Skin: Warm, dry with normal turgor. Normal color with no rashes, no lesions, and no evidence of cellulitis. MS/ Extremity: Pulses equal, no cyanosis. Neurovascular intact. Full, normal range of motion. Neuro: Awake and alert, GCS 15, oriented to person, place, time, and situation. Cranial nerves II-XII grossly intact. Motor strength 5/5 in all extremities. Sensory grossly intact. Cerebellar exam normal. Normal gait. Psych: Awake, alert, with orientation to person, place and time. Behavior, mood, and affect are within normal limits. 04:18 Cardiovascular: Rate: tachycardic, Rhythm: regular, Pulses: Pulses are 4+ in bilateral radial, brachial, femoral, popliteal, posterior tibial and and dorsalis pedis arteries.. Heart sounds: normal, Edema: is not appreciated, JVD: is not appreciated. 05:12 ECG was reviewed by the Attending Physician. [facility] Vital Signs: 03:26 BP 117 / 99; Pulse 123; Resp 23; Temp 97.9(TE); Pulse Ox 99% on R/A; Weight 52.16 kg jb4 (R); Height 4 ft. 10 in. (147.32 cm); Pain 5/10; 03:26 Body Mass Index 24.03 (52.16 kg, 147.32 cm) jb4 MDM: 03:30 Patient medically screened. [facility] 04:18 Differential diagnosis: Nonspecific abd pain, gastritis, viral gastroenteritis, tam gastroenteritis. Differential Diagnosis altered mental status. Data reviewed: vital signs, nurses notes, lab test result(s), EKG, radiologic studies, plain films. Data interpreted: panel monitor: rate is 123 beats/min, rhythm is regular, Pulse oximetry: on room air is 99 %. Test interpretation: by ED physician or midlevel provider: ECG, plain radiologic studies. Counseling: I had a detailed discussion with the patient and/or guardian regarding: the historical points, exam findings, and any diagnostic results supporting the discharge/admit diagnosis, lab results, radiology results, the need for further work-up and treatment in the hospital. 05/01 03:36 Order name: Basic Metabolic Panel [facility] 05/01 03:36 Order name: CBC with Diff; Complete Time: 04:46 [facility] 05/01 03:36 Order name: LFT's [facility] 05/01 03:36 Order name: Magnesium [facility] 05/01 03:36 Order name: NT PRO-BNP [facility] 05/01 03:36 Order name: PT-INR; Complete Time: 04:46 [facility] 05/01 03:36 Order name: Troponin HS 05/01 03:36 Order name: Lipase [facility] 05/01 03:36 Order name: ABG; Complete Time: 04:36 [facility] 05/01 03:36 Order name: Ketone, Serum [facility] 05/01 03:36 Order name: SARS RAPID; Complete Time: 05:01 [facility] 05/01 03:36 Order name: Blood Culture Adult (2) [facility] 05/01 05:12 Order name: Phosphorus la1 05/01 05:38 Order name: Phosphorus [facility] 05/01 03:36 Order name: XRAY Chest (1 view) [facility] 05/01 05:39 Order name: Urine Dipstick-Ancillary [facility] 05/01 06:18 Order name: Glucose, Ancillary Testing [facility] 05/01 08:53 Order name: Glucose, Ancillary Testing [facility] 05/01 10:13 Order name: Glucose, Ancillary Testing [facility] 05/01 11:26 Order name: Glucose, Ancillary Testing [facility] 05/01 12:09 Order name: Hemoglobin A1c [facility] 05/01 12:39 Order name: Glucose, Ancillary Testing [facility] 05/01 13:37 Order name: Glucose, Ancillary Testing [facility] 05/01 14:12 Order name: Lipid Profile [facility] 05/01 14:22 Order name: Basic Metabolic Panel [facility] 05/01 14:42 Order name: Glucose, Ancillary Testing [facility] 05/01 03:36 Order name: EKG; Complete Time: 03:37 [facility] 05/01 03:36 Order name: Cardiac monitoring; Complete Time: 03:40 [facility] 05/01 03:36 Order name: EKG - Nurse/Tech; Complete Time: 05:10 [facility] 05/01 03:36 Order name: IV Saline Lock; Complete Time: 04:35 [facility] 05/01 03:36 Order name: Labs collected and sent; Complete Time: 04:35 [facility] 05/01 03:36 Order name: O2 Per Protocol; Complete Time: 03:40 [facility] 05/01 03:36 Order name: O2 Sat Monitoring; Complete Time: 03:40 [facility] 05/01 03:36 Order name: Urine Dipstick-Ancillary (obtain specimen); Complete Time: 05:43 [facility] 05/01 03:36 Order name: Urine Test (obtain specimen); Complete Time: 05:43 [facility] EC:12 Rate is 115 beats/min. Rhythm is regular. QRS Randall is Normal. [place] interval is normal. [facility] QRS interval is normal. QT interval is normal. No Q waves. T waves are Normal. No ST changes noted. Clinical impression: NSR w/ Non-specific ST/T Changes and No evidence of ischemia. Interpreted by me. Reviewed by me. Administered Medications: 05:20 Drug: Rocephin (cefTRIAXone) 1 grams Route: IV; Rate: per protocol; Site: left jb4 antecubital; 05:22 Drug: NS 0.9% 1000 ml Route: IV; Rate: 1 bolus; Site: right antecubital; jb4 05:22 Drug: NS 0.9% 1000 ml Route: IV; Rate: 1 bolus; Site: right antecubital; jb4 10:27 Not Given (Other Intervention Used; see [facility]): NS 0.45 % with KCl 20 mEq/L 1000 ml jd3 IV at 125 ml/hr once 10:38 Not Given (charted in [facility]): Insulin Drip - (Insulin Regular Human 100 units, NS jd3 0.9% 100 ml) IV at calculated rate continuous; Standard concentration 1unit/ml; Dose for DKA is 0.1 units/kg/hr Disposition Summary: 05/01/22 04:25 Hospitalization Ordered Hospitalization Status: Inpatient Admission tam Provider: Kyree Almeida cha Condition: Fair tam Problem: new tam Symptoms: have improved tam Bed/Room Type: Standard tam Location: Intensive Care Unit(05/01/22 13:47) eb Room Assignment: 6-(05/01/22 13:47) eb Diagnosis - Type 1 diabetes mellitus with ketoacidosis tam - Vomiting tam Forms: - Medication Reconciliation Form tam - SBAR form tam Signatures: Dispatcher [employer] Niko Estrada MD MD cha Attema, Lee, [employer] Minnie Krishna, RN RN Heriberto Terrell RN RN jb4 Tala Bridges Jonathon RN jd3 Corrections: (The following items were deleted from the chart) 06: 04:25 Intensive Care Unit tam cg 06: 04:25 tam cg 13:47 06:22 [facility] ER HOLD cg eb :47 06:22 ERHOLD- cg eb
--- NOTE | 2022-05-01 04:25 | ER ---
Nurse's Notes [facility] Name: Cristina Wheeler Age: 31 yrs Sex: Female : 1990 Arrival Date: 05/01/2022 Time: 03:26 Bed 5 Private MD: Diagnosis: Type 1 diabetes mellitus with ketoacidosis;Vomiting Presentation: 05/01 03:26 Chief complaint: EMS states: Pt thinks she is in DKA. Reports having it in the past, jb4 and it feels the same. Symptoms are chest pain, Cold chills, excessive thirst, loss of appetite weakness. Bgl 337, given 324 of ASA. Coronavirus screen: At this time, the client does not indicate any symptoms associated with coronavirus-19. Ebola Screen: No symptoms or risks identified at this time. Initial Sepsis Screen: Does the patient meet any 2 criteria? RR > 20 per min. HR > 90 bpm. Yes Does the patient have a suspected source of infection? No. Patient's initial sepsis screen is negative. Risk Assessment: Do you want to hurt yourself or someone else? Patient reports no desire to harm self or others. Onset of symptoms was May 01, 2022. Transition of care: patient was not received from another setting of care. 03:26 Method Of Arrival: EMS: [facility] 03:26 Acuity: KM 2 jb4 Historical: - Allergies: 03:38 flu medication; jb4 03:38 PENICILLINS; jb4 03:38 Spinach; jb4 03:38 Sulfa (Sulfonamide Antibiotics); jb4 - Home Meds: 03:38 gabapentin Oral [Active]; Tresiba FlexTouch U-100 100 unit/mL (3 mL) subcutaneous inpn jb4 [Active]; Humolog [Active]; - PMHx: 03:38 Arthritis; Diabetes - IDDM; neuropathy; jb4 - Immunization history:: Adult Immunizations up to date. - Social history:: Smoking status: Reported history of juuling and/or vaping. - Family history:: not pertinent. Screenin:00 Abuse screen: Denies threats or abuse. Nutritional screening: No deficits noted. jd3 Tuberculosis screening: No symptoms or risk factors identified. Fall Risk Ambulatory Aid- None/Bed Rest/Nurse Assist (0 pts). Gait- Normal/Bed Rest/Wheelchair (0 pts) Mental Status- Oriented to own ability (0 pts). Total Reece Fall Scale indicates No Risk (0-24 pts). Assessment: 07:00 Reassessment: charting continued in [facility]. General: Appears in no apparent distress. jd3 comfortable, Behavior is calm, cooperative, appropriate for age. Pain: Denies pain. Neuro: Hernández Agitation-Sedation Scale (RASS): 0 - Alert and Calm Level of Consciousness is awake, alert, obeys commands, Oriented to person, place, time, situation. Cardiovascular: Capillary refill < 3 seconds Patient's skin is warm and dry. Respiratory: Airway is patent Respiratory effort is even, unlabored, Respiratory pattern is regular, symmetrical. GI: Reports nausea. : No signs and/or symptoms were reported regarding the genitourinary system. EENT: No signs and/or symptoms were reported regarding the EENT system. Derm: No signs and/or symptoms reported regarding the dermatologic system. Musculoskeletal: No signs and/or symptoms reported regarding the musculoskeletal system. Vital Signs: 03:26 BP 117 / 99; Pulse 123; Resp 23; Temp 97.9(TE); Pulse Ox 99% on R/A; Weight 52.16 kg jb4 (R); Height 4 ft. 10 in. (147.32 cm); Pain 5/10; 03:26 Body Mass Index 24.03 (52.16 kg, 147.32 cm) jb4 ED Course: 03:26 Patient arrived in ED. jb4 03:28 Niko Leon MD is Attending Physician. tam 03:30 Triage completed. jb4 03:40 Arm band placed on right wrist. jb4 03:42 Heriberto Mayo, RN is Primary Nurse. jb4 04:00 Inserted saline lock: 18 gauge antecubital area, using aseptic technique. ,using vc1 aseptic technique. midline by PORTILLO HAND I TUBE BENDER. 04:24 Kyree Almeida MD is Hospitalizing Provider. tam 04:59 XRAY Chest (1 view) In Process Unspecified. EDMS 07:00 Patient has correct armband on for positive identification. Placed in gown. Bed in low jd3 position. Call light in reach. Side rails up X2. Client placed on continuous cardiac and pulse oximetry monitoring. NIBP monitoring applied. quality assurance monitor on. Pulse ox on. NIBP on. 07:00 No provider procedures requiring assistance completed. Patient admitted, IV remains in jd3 place. 15:25 PT SIGNED AMA FORM ,SEE CHART FOR FORM. kj1 Administered Medications: 05:20 Drug: Rocephin (cefTRIAXone) 1 grams Route: IV; Rate: per protocol; Site: left jb4 antecubital; 05:22 Drug: NS 0.9% 1000 ml Route: IV; Rate: 1 bolus; Site: right antecubital; jb4 05:22 Drug: NS 0.9% 1000 ml Route: IV; Rate: 1 bolus; Site: right antecubital; jb4 10:27 Not Given (Other Intervention Used; see [facility]): NS 0.45 % with KCl 20 mEq/L 1000 ml jd3 IV at 125 ml/hr once 10:38 Not Given (charted in [facility]): Insulin Drip - (Insulin Regular Human 100 units, NS jd3 0.9% 100 ml) IV at calculated rate continuous; Standard concentration 1unit/ml; Dose for DKA is 0.1 units/kg/hr Medication: 07:00 VIS not applicable for this client. jd3 Outcome: 04:25 Decision to Hospitalize by Provider. tam 07:00 Admitted to ER Hold. Please see [facility] for further documentation. jd3 07:00 Condition: stable 07:00 Instructed on the need for admit. 15:28 Patient left the ED. kj1 Signatures: Dispatcher [employer] EDMS Niko Leon MD MD cha Bryson, James, RN RN jb4 Sukhwinder Shelby RN RN jd3 Jackson, Kandis kj1 Ruthie Alfonso RN RN vc1 Corrections: (The following items were deleted from the chart) 03:40 03:26 BP 117 / 99; Pulse 123bpm; Pulse Ox 99% RA; Temp 97.9F Temporal; 52.16 kg jb4 Reported; Height 4 ft. 10 in.; BMI: 24.0; Pain 5/10; jb4 03:41 03:26 Initial Sepsis Screen: Does the patient meet any 2 criteria? HR > 90 bpm. Yes jb4 Does the patient have a suspected source of infection? No. Patient's initial sepsis screen is negative. jb4
[2022-05-01 04:39] LABS: Absolute Lymphocytes (CBC) 1.4 K/uL (0.7-4.9); Hematocrit 43.9 % (36.0-45.0); Lymphocytes % 15.4 % (15.3-44.8); MCV 88.2 fL (80-100); MPV 8.4 fL (7.6-11.3); RBC Red Blood Cell Count 4.97 M/uL (3.86-4.86)
[2022-05-01 04:43] LABS: Protime INR 1.02
[2022-05-01] MEDS ORDERED: NA CHLORIDE 0.9% 50 ML ONE (04:48)
[2022-05-01] MEDS ORDERED: CEFTRIAXONE 1000 MG/VIAL ONE (04:48)
[2022-05-01] MEDS ORDERED: NA CHLORIDE 0.9% 2,000 ML ONE (04:48)
[2022-05-01 04:54] LABS: SARS-CoV-2 Antigen Rapid Res Negative (Negative)
[2022-05-01 05:07] LABS: ALT/SGPT 16 U/L (12-78); AST/SGOT < 3 U/L (15-37); Albumin 3.6 g/dL (3.4-5.0); Alkaline Phosphatase 85 U/L (45-117); BUN Blood Urea Nitrogen 18 mg/dL (7-18); Bilirubin Direct 0.1 mg/dL (0-0.2); Bilirubin Total 0.6 mg/dL (0.2-1.0); Glomerular Filtration Rate 93 ml/min (=/>90); Glucose Level 272 mg/dL (74-106); Lipase 130 U/L (73-393); Magnesium 1.9 mg/dL (1.8-2.4); NT PRO-BNP 56 pg/mL (<125); Potassium 3.6 mmol/L (3.5-5.1); Protein, Total 7.8 g/dL (6.4-8.2); Sodium Level 135 mmol/L (136-145); Troponin High Sensitivity 3.7 pg/mL (<58.9)
[2022-05-01 05:08] LABS: Bicarbonate 11 mmol/L (21-32)
--- NOTE | 2022-05-01 05:20 | P.HP ---
Certification for Inpatient Patient admitted to: Inpatient With expected LOS: >2 Midnights Patient will require the following post-hospital care: None Practitioner: I am a practitioner with admitting privileges, knowledge of patient current condition, hospital course, and medical plan of care. Services: Services provided to patient in accordance with Admission requirements found in Title 42 Section 412.3 of the Code of Federal Regulations <Antoni Bruce - Last Filed: 05/01/22 05:17> Patient History Date of Service: 05/01/22 History of Present Illness: 31-year-old female with history of type 1 diabetes presents emergency department with concern for DKA, she reports that she has been experiencing chest pain, chills, excessive thirst, loss of appetite, frequent urination and weakness. Upon arrival to the emergency department she is found to be tachycardic and tachypneic but afebrile. Her labs were significant for sodium of 135 bicarb of 11 anion gap of 19 potassium 3.6 glucose 272 with blood cell count 9.3 ABG demonstrated metabolic acidosis. Patient was given 2 L of normal saline bolus and started on insulin drip in the emergency department, potassium containing fluids have been ordered for maintenance fluids. We will admit to the ICU continue with hourly Accu-Cheks and every 4 BMPs. - Past Medical/Surgical History Diabetic: Yes -: diabetes mellitus I -: neuropathy -: arthritis -: ankle sx -: DKA Psychosocial/ Personal History: Pt lives at home with her family. - Family History Father -: Diabetes Mother -: Heart disease, Hypertension, Diabetes, Stroke Notes: Pt reports mother due to [place] in October 2021 - Social History Smoking Status: Never smoker Alcohol use: No CD- Drugs: No Caffeine use: Yes Place of Residence: Home <Antoni Bruce - Last Filed: 05/01/22 05:17> Date of Service: 05/01/22 <Kyree Almeida - Last Filed: 05/01/22 11:54> Allergies ibuprofen Adverse Reaction (Verified 10/29/18 09:02) Nausea/Vomiting oseltamivir [From Tamiflu] Adverse Reaction (Verified 10/29/18 09:02) Hives/Rash Penicillins Adverse Reaction (Verified 10/29/18 09:02) Itching/Hives/Rash Sulfa (Sulfonamide Antibiotics) Adverse Reaction (Verified 10/29/18 09:02) Itching/Hives/Rash Home Medications: Gabapentin 300 mg PO BID 10/29/18 Insulin Lispro [Humalog] 4 unit SQ AC 07/23/20 Insulin Lispro [Humalog] See Protocol SQ AC 07/23/20 Insulin Degludec [Tresiba] 22 unit SQ BEDTIME #1 vial 11/19/21 Review of Systems 10-point ROS is otherwise unremarkable General: Chills, Weakness, Malaise Cardiovascular: Chest Pain Gastrointestinal: Nausea <Antoni Bruce - Last Filed: 05/01/22 05:17> Physical Examination - Physical Exam General: Alert, In no apparent distress, Oriented x3 HEENT: Atraumatic, PERRLA, Other (MM dry), EOMI, Sclerae nonicteric Neck: Supple, 2+ carotid pulse no bruit, No LAD, Without JVD or thyroid abnormality Respiratory: Clear to auscultation bilaterally, Normal air movement Cardiovascular: Regular rate/rhythm, Normal S1 S2 Gastrointestinal: Normal bowel sounds, No tenderness Musculoskeletal: No tenderness Integumentary: No rashes Neurological: Normal gait, Normal speech, Normal strength at 5/5 x4 extr, Normal tone, Normal affect - Studies Laboratory Data (last 24 hrs) 05/01/22 04:27: PT 11.2, INR 1.02 05/01/22 04:27: WBC 9.30, Hgb 14.5, Hct 43.9, Plt Count 357 05/01/22 04:27: Sodium 135 L, Potassium 3.6, BUN 18, Creatinine 0.86, Glucose 272 H, Magnesium 1.9, Total Bilirubin 0.6, AST < 3 L, ALT 16, Alkaline Phosphatase 85, Lipase 130 <Antoni Bruce - Last Filed: 05/01/22 05:17> - Studies Laboratory Data (last 24 hrs) 05/01/22 04:27: Phosphorus 2.3 L 05/01/22 04:27: PT 11.2, INR 1.02 05/01/22 04:27: WBC 9.30, Hgb 14.5, Hct 43.9, Plt Count 357 05/01/22 04:27: Sodium 135 L, Potassium 3.6, BUN 18, Creatinine 0.86, Glucose 272 H, Magnesium 1.9, Total Bilirubin 0.6, AST < 3 L, ALT 16, Alkaline Phosphatase 85, Lipase 130 <Kyree Almeida - Last Filed: 05/01/22 11:54> Assessment and Plan - Plan Assessment: Diabetes mellitus type 1 with ketoacidosis SIRS criteria Plan: Diabetes mellitus type 1 with ketoacidosis: Patient reports that she has been rationing her long-acting insulin, she is prescribed Tresiba 22 units once daily but she does not follow closely with endocrinology and make adjustments on her own, she also takes sliding scale insulin. She does not know when her last A1c was. She denies any fever ROS otherwise negative for signs of infection. She is given 2 L NS bolus in the ED will continue with potassium containing maintenance fluids. Every 4 BMP, hourly Accu-Chek until anion gap is closed. A1c and lipid panel to be obtained. SIRS criteria: Patient is SIRS criteria including heart rate greater than 90, respiratory rate greater than 20 no source of infection was identified. Blood cultures were obtained. DVT PPX: Lovenox Code status: Full Discharge Plan: Home Plan to discharge in: 48 Hours - Advance Directives Does patient have a Living Will: No Does patient have a Durable POA for Healthcare: No - Code Status/Comfort Care Code Status Assessed: Yes (Full code) Critical Care: No Time Spent Managing Pts Care (In Minutes): 70 <Antoni Bruce - Last Filed: 05/01/22 05:17> Physician Review: Patient Assessed, Agree with Above Assessment and Plan <Kyree Almeida - Last Filed: 05/01/22 11:54>
[2022-05-01 05:38] LABS: Urine Blood 1+ (Negative); Urine Glucose 1+ (Negative); Urine Protein 2+ (Negative); Urine Specific Gravity >=1.030 (1.005-1.030); Urine pH 5.5 (5.0-7.0)
[2022-05-01] MEDS ORDERED: NS KCL 20MEQ 1,000 ML IV ONE (05:54)
[2022-05-01] MEDS ORDERED: NA CHLORIDE 0.9% 100 ML ONE (05:57)
[2022-05-01] MEDS ORDERED: INSULIN -REGULAR HUMAN 50 UNIT/0.5 ML ML ONE (05:57)
[2022-05-01] MEDS ORDERED: D5.45NS W/KCL 20MEQ 1,000 ML IV SCH (08:18)
[2022-05-01] MEDS ORDERED: INSULIN -REGULAR HUMAN 100 UNIT in NA CHLORIDE 0.9% 100 ML IV SCH (08:18)
[2022-05-01] MEDS ORDERED: NACHLORIDE 0.45% 1,000 ML with POTASSIUM CL 20 MEQ IV SCH ×2 (08:18)
[2022-05-01] MEDS ORDERED: ONDANSETRON 4 MG/2 ML VIAL IV PRN (08:18)
[2022-05-01] MEDS ORDERED: ENOXAPARIN 40 MG/0.4 ML SQ SCH (09:00)
[2022-05-01] MEDS ORDERED: D5.45NS W/KCL 20MEQ 1,000 ML IV ONE (09:20)
[2022-05-01 12:08] VITALS: BMI 24.0
[2022-05-01 14:08] LABS: Potassium 3.3 mmol/L (3.5-5.1)
--- NOTE | 2022-05-01 15:18 | P.DS ---
Admission Date: 05/01/22 Discharge Date: 05/01/22 Disposition: AMA-LEFT AGAINST MEDICAL ADVIC Discharge Condition: FAIR Reason for Admission: Diabetic Ketoacidosis Hospital Course: DIAGNOSES: # Diabetic Ketoacidosis in the Type I Diabetes Mellitus secondary to Medication Non-Compliance # Dyslipidemia # SIRS Criteria (Tachycardia, Tachypnea) secondary to above - no obvious infections HOSPITAL COURSE: Mrs. Cristina Wheeler is a 31 year old female with a past medical history significant for type I diabetes mellitus who was admitted to the [facility] on 05/01/2022 for diabetic ketoacidosis. She was admitted to the Medicine service for further treatment. She was started on the DKA protocol, with improvement in her anion gap and glucose levels. The plan was to transition her off of the insulin drip and onto subcutaneous insulin, with a tentative discharge plan for tomorrow. However, she stated that she is sick of being in this hospital, and wishes to go to [place] to be in a hospital near her home. I advised her and her , who is at bedside, that my medical recommendation is that she stay hospitalized until tomorrow morning, when we can safely monitor her on subcutaneous insulin. She stated that she does not wish to be in this hospital any longer and will leave today no matter what. I advised her that diabetic ketoacidosis is a lifethreatening condition if left untreated and premature discharge may lead to many complications including, but not limited to, recurrence of DKA, worsening acidosis leading to fatal cardiac arrhythmias, and potentially . She verbalized understanding and repeated these risks to me and stated that she accepts these risks. Based on her ability to understand her disease process, understand the c onsequences of not pursuing therapy, communicate that she would like to be discharged, and her ability to explain her rationale for being discharged, we believe that she has medical decision making capacity. She has signed out AGAINST MEDICAL ADVICE. Bedside RNs Sukhwinder and Greta, were present for this AMA discussion. She was given instructions to schedule a follow-up appointment with her PCP (Dr. Casey) as soon as possible. I have spoken with Dr. Casey and he agrees to see her in clinic this week once she schedules an appointment. She was provided a prescription for her insulin. She and her family members were given the opportunity to ask questions and reported no further questions. Furthermore, all questions were answered to the best of my ability. Today, I personally spent 35 minutes on her case, of which greater than 50% of the time was spent in patient education, counseling, and coordination of care as described above. Vital Signs/Physical Exam: Temp Pulse Resp BP Pulse Ox 99 F 100 H 18 101/58 L 99 05/01/22 12:00 05/01/22 12:00 05/01/22 12:00 05/01/22 12:00 05/01/22 12:00 General: Alert, In no apparent distress, Oriented x3 HEENT: Atraumatic, PERRLA, Mucous membr. moist/pink, EOMI, Sclerae nonicteric Neck: Supple, JVD not distended Respiratory: Clear to auscultation bilaterally, Normal air movement Cardiovascular: No edema, Regular rate/rhythm, Normal S1 S2, No gallops, No rubs, No murmurs Gastrointestinal: Normal bowel sounds, Soft and benign, Non-distended, No tenderness, No rebound, No guarding Musculoskeletal: No clubbing Integumentary: No rashes Neurological: Normal speech, Cranial nerves 3-12 intact, Normal affect Laboratory Data at Discharge: WBC 9.30 K/uL (4.3-10.9) 05/01/22 04:27 Hgb 14.5 g/dL (12.0-15.0) 05/01/22 04:27 Hct 43.9 % (36.0-45.0) 05/01/22 04:27 Plt Count 357 K/uL (152-406) 05/01/22 04:27 PT 11.2 SECONDS (9.5-12.5) 05/01/22 04:27 INR 1.02 05/01/22 04:27 Sodium 139 mmol/L (136-145) 05/01/22 13:43 Sodium Cancelled 05/01/22 13:43 Potassium 3.3 mmol/L (3.5-5.1) L 05/01/22 13:43 Potassium Cancelled 05/01/22 13:43 BUN 10 mg/dL (7-18) 05/01/22 13:43 BUN Cancelled 05/01/22 13:43 Creatinine 0.64 mg/dL (0.55-1.3) 05/01/22 13:43 Creatinine Cancelled 05/01/22 13:43 Glucose 136 mg/dL (74-106) H 05/01/22 13:43 Glucose Cancelled 05/01/22 13:43 Phosphorus 2.3 mg/dL (2.5-4.9) L 05/01/22 04:27 Magnesium 1.9 mg/dL (1.8-2.4) 05/01/22 04:27 Total Bilirubin 0.6 mg/dL (0.2-1.0) 05/01/22 04:27 AST < 3 U/L (15-37) L 05/01/22 04:27 ALT 16 U/L (12-78) 05/01/22 04:27 Alkaline Phosphatase 85 U/L (45-117) 05/01/22 04:27 Triglycerides 170 mg/dL (<150) H 05/01/22 13:43 Cholesterol 225 mg/dL (<200) H 05/01/22 13:43 HDL Cholesterol 42 mg/dL (40-60) 05/01/22 13:43 Cholesterol/HDL Ratio 5.36 05/01/22 13:43 Lipase 130 U/L (73-393) 05/01/22 04:27 Home Medications: Gabapentin 300 mg PO BID 10/29/18 Insulin Lispro [Humalog] 4 unit SQ AC 07/23/20 Insulin Degludec [Tresiba] 22 unit SQ BEDTIME #6 vial 05/01/22 New Medications: Insulin Degludec [Tresiba] 22 unit SQ BEDTIME #6 vial Physician Discharge Instructions: 1. Please schedule a follow-up with your PCP (Dr. Casey) as soon as possible If you change your mind, please return to the Emergency Department and we will be happy to take care of you. Diet: ADA Activity: Ad latosha Followup: Ramsey Casey DO [ACTIVE - CAN ADMIT] - Time spent managing pt's care (in minutes): 35
--- NOTE | 2022-05-01 22:11 | RAD REPORT ---
EXAM DESCRIPTION: RAD - Chest Single View - 05/01/2022 4:58 am COMPARISON: Chest radiograph November 19, 2021 CLINICAL HISTORY: [facility] MAIN ABDOMINAL DISTENTION FINDINGS: A single AP view of the chest demonstrates a normal cardiomediastinal silhouette. No pneumothorax or pleural effusion. No consolidation or pulmonary edema. Osseous structures are intact. IMPRESSION: No acute chest process. Electronically signed by: Cooper Jarquin MD 05/01/2022 6:04 AM CDT Due to temporary technical issues with the PACS/Fluency reporting system, reports are being signed by the in house radiologists without review as a courtesy to insure prompt reporting. The interpreting radiologist is fully responsible for the content of the report.
--- NOTE | 2022-05-02 15:57 | EKG ---
Test Date: 2022-05-01 Test Time: 05:01:15 Speech And Drama Teacher: MARE MEASUREMENT RESULTS: Intervals: Rate: 115 AK: 134 QRSD: 68 QT: 348 QTc: 481 [place]: P: 73 AK: 134 QRS: 85 T: 29 INTERPRETIVE STATEMENTS: Sinus tachycardia Right atrial enlargement Borderline ECG Compared to ECG 11/19/2021 04:30:40 Atrial abnormality now present T-wave abnormality no longer present Electronically Signed On 05-02-22 15:54:34 CDT by Leodan Arboleda
[2022-05-03 00:23] VITALS: BP 117/99; TEMP 97.9; O2SAT 99
== END 2022-05-01 15:15 | disposition left against medical advice (07) | DRG 639 ==
LOC: ER 03:20 → ERHOLD 05:13 → 3RD-ICU 14:24
PROVIDERS: ADMIT Internal Medicine; ATTEND Internal Medicine
DX: E10.10 Type 1 diabetes mellitus with ketoacidosis without coma (principal); R00.0 Tachycardia, unspecified; R06.82 Tachypnea, not elsewhere classified; Z91.14 Patient's other noncompliance with medication regimen; Z53.29 Procedure and treatment not carried out because of patient's decision for other reasons; E10.40 Type 1 diabetes mellitus with diabetic neuropathy, unspecified; E78.5 Hyperlipidemia, unspecified; M19.90 Unspecified osteoarthritis, unspecified site; F17.290 Nicotine dependence, other tobacco product, uncomplicated; Z79.4 Long term (current) use of insulin; Z88.0 Allergy status to penicillin; Z88.2 Allergy status to sulfonamides; Z88.6 Allergy status to analgesic agent; Z88.8 Allergy status to other drugs, medicaments and biological substances; Z83.3 Family history of diabetes mellitus; Z82.49 Family history of ischemic heart disease and other diseases of the circulatory system; Z82.3 Family history of stroke
CPT/HCPCS: 36415; 71045; 80048; 80061; 80076; 81003; 82010; 82805; 82947; 83036; 83690; 83735; 83880; 84100; 84484; 85025; 85610; 87040; 87811; 93005; 96374; 99285; J1650; J1815; J3480; J7030

== ENCOUNTER 2022-07-04 16:59 | Emergency (ER) | payer OTHER ==
--- OUTSIDE RECORDS SUMMARY | 2022-07-04 17:02 | XMS REPORT | Continuity of Care Document ---
:1990 Author Organization [facility] t Address [address] [place] [address] Care Team Providers Name Role Phone Provider, Unknown Primary Care Physician Unavailable NEYMAR DICKINSON Attending Clinician Unavailable Neymar Dickinson MD Attending Clinician Jeffry Fuchs Attending Clinician Unavailable Linda Yu Attending Clinician Unavailable Payers Payer Name Policy Type Policy Number Effective Date Expiration Date [facility] [id number] 2019 PLUS 00:00:00 MEDICAID [place] [id number] 2019 00:00:00 Problems This patient has no known problems. Allergies, Adverse Reactions, Alerts Allergy Allergy Status Severity Reaction(s) Onset Inactive Treating Comm ents Source Name Type Date Date Clinician SULFA Drug Active Unknown-Cmnt Univ ers (SULFONA Class 04-15 ity of MIDE 00:00: [place] ANTIBIOT 00 Medical ICS) Branch Penicill DA Active [facility] ins 03-21 [place] d [facility] Sulfa DA Active [facility] (Sulfona 03-21 [place] mide 00:00: d Antibiot 00 Medical ics) Center ibuprofe DA Active [facility] n 03-21 [place] 00:00: d 00 [facility] [place] sulfamet DA Active SV [facility] hoxazole 03-21 [place] 00:00: d 00 Medical [place] trimetho DA Active [facility] prim 03-21 [place] 00:00: d 00 [facility] penicill DA Active [facility] in G 03-21 [place] 00:00: d 00 Medical [place] shellfis DA Active [facility] h 03-21 [place] derived 00:00: d 00 [facility] spinach DA Active [facility] 03-21 [place] 00:00: d 00 [facility] Ibuprofe Propensi Active Method i n ty to 11-15 st adverse 00:00: Hospita reaction 00 l s to drug Sulfa Propensi Active Methodi (Sulfona ty to 11-15 st mide adverse 00:00: Hospita Antibiot reaction 00 l ics) s to drug MUSHROOM DA Active [facility] S 10-09 [place] 00:00: d 00 [facility] PENICILL Drug Active Rash Univers INS Class 5-06 ity of 00:00: [address] Social History Social Habit Start Date Stop Date Quantity Comments Source Alcohol intake 2017-11-15 2017-11-15 Current drinker of [facility] 00:00:00 00:00:00 alcohol (finding) Hospita l Alcohol Comment 2017-11-15 2017-11-15 occasional [facility] 00:00:00 00:00:00 Hospital Tobacco use and 2017-11-15 2017-11-15 Smokeless tobacco [facility] exposure 00:00:00 00:00:00 non-user Hospital Sex Assigned At [birth year] [facility] 00:00:00 00:00:00 Hospital Smoking Status Start Date Stop Date Source Never smoked tobacco [facility]spital Medications Ordered Filled Start Stop Current Ordering Indication Dosage Frequency Signature Comments Components Source Medication Medication Date Date Medication? Clinician (SIG) Name Name No known No No known Metho di medications - medication st 06:03: s Hospita 15 l No known No No known Metho di medications - medication st 06:03: s [facility] 15 l Procedures This patient has no known procedures. Encounters Start End Encounter Admission Attending Care Care Encounter Source Date/Time Date/Time Type Type Clinicians Facility Department ID 2020-12-12 2020-12-12 [facility] [id number] [facility] 13:30:00 13:30:00 NEYMAR gan [facility] 2020-06-20 2020-06-20 Office Dirk [facility] [id number] 10:27:33 12:32:24 Visit Neymar Sandoval [id number] Vanessa [id number] Indu [id number] [address] 2020-06-20 2020-06-20 Outpatient [facility] [id number] [facility] 11:00:00 11:00:00 NEYMAR gan [facility] 2018-07-27 2018-07-27 Outpatient ROHAN Fuchs W [id number] [facility] 10:52:00 10:52:00 Jeffry Campbell [facility] 2018-06-14 2018-06-14 Outpatient ROHAN Fuchs W [id number] [facility] 11:19:00 11:19:00 Jeffry Campbell [facility] 2018-05-23 2018-05-23 Outpatient ROHAN Yu Geovani [id number] [facility] 16:00:00 16:00:00 [facility] Results This patient has no known results.
--- NOTE | 2022-07-04 17:40 | RAD REPORT ---
EXAM DESCRIPTION: RAD - Chest Single View - 07/04/2022 5:32 pm CLINICAL HISTORY: CHEST PAIN Chest pain. COMPARISON: Chest Single View dated 05/01/2022; Chest Single View dated 11/19/2021; Chest Single View d ated 07/21/2020; Chest Single View dated 08/08/2019 FINDINGS: Portable technique limits examination quality. The lungs are grossly clear. The heart is normal in size. No displaced fractures. IMPRESSION: No acute intrathoracic process suspected.
[2022-07-04] MEDS ORDERED: NA CHLORIDE 0.9% 2,000 ML ONE (18:38)
[2022-07-04] MEDS ORDERED: MORPHINE 2 MG/ML SYR ONE (18:38)
[2022-07-04] MEDS ORDERED: ONDANSETRON 4 MG/2 ML VIAL ONE (18:38)
[2022-07-04] MEDS ORDERED: FAMOTIDINE 20 MG/2 ML VIAL IV ONE (18:38)
--- NOTE | 2022-07-04 19:17 | EDPHYS ---
Physician Documentation [facility] Name: Cristina Wheeler Age: 32 yrs Sex: Female : 1990 Arrival Date: 07/04/2022 Time: 17:02 Bed 5 Private MD: ED Physician Niko Leon HPI: 07/04 18:43 This 32 yrs old Female presents to ER via Wheelchair with complaints of tam Vomiting, Abdominal Pain, Chest Pain. 18:43 The patient presents to the emergency department with nausea, vomiting, that is tam continuous. Onset: The symptoms/episode began/occurred 3 day(s) ago. Possible causes: unknown. The symptoms are aggravated by nothing. The symptoms are alleviated by remaining still. Associated signs and symptoms: Pertinent positives: anorexia, nausea, vomiting. Severity of symptoms: At their worst the symptoms were moderate severe in the emergency department the symptoms are unchanged. The patient has experienced similar episodes in the past, several times. 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 - Social history:: Smoking status: Reported history of juuling and/or vaping. ROS: 18:44 Eyes: Negative for injury, pain, redness, and discharge, ENT: Negative for injury, tam pain, and discharge, Neck: Negative for injury, pain, and swelling, Abdomen/GI: Negative for abdominal pain, nausea, vomiting, diarrhea, and constipation, Back: Negative for injury and pain, : Negative for injury, bleeding, discharge, and swelling, MS/Extremity: Negative for injury and deformity, Skin: Negative for injury, rash, and discoloration, Neuro: Negative for headache, weakness, numbness, tingling, and seizure, Psych: Negative for depression, anxiety, suicide ideation, homicidal ideation, and hallucinations, Allergy/Immunology: Negative for hives, rash, and allergies, Hematologic/Lymphatic: Negative for swollen nodes, abnormal bleeding, and unusual bruising. 18:44 Cardiovascular: Positive for chest pain. 18:44 Respiratory: Positive for cough, shortness of breath. 18:44 Abdomen/GI: Positive for abdominal pain, nausea and vomiting. 18:44 Neuro: Positive for altered mental status. Exam: 18:44 Constitutional: This is a well developed, well nourished patient who is awake, alert, tam and in no acute distress. Head/Face: Normocephalic, atraumatic. Eyes: Pupils equal round and reactive to light, extra-ocular motions intact. Lids and lashes normal. Conjunctiva and sclera are non-icteric and not injected. Cornea within normal limits. Periorbital areas with no swelling, redness, or edema. ENT: Nares patent. No nasal discharge, no septal abnormalities noted. Tympanic membranes are normal and external auditory canals are clear. Oropharynx with no redness, swelling, or masses, exudates, or evidence of obstruction, uvula midline. Mucous membranes moist. Neck: Trachea midline, no thyromegaly or masses palpated, and no cervical lymphadenopathy. Supple, full range of motion without nuchal rigidity, or vertebral point tenderness. No Meningismus. Chest/axilla: Normal chest wall appearance and motion. Nontender with no deformity. No lesions are appreciated. Abdomen/GI: Soft, non-tender, with normal bowel sounds. No distension or tympany. No guarding or rebound. No evidence of tenderness throughout. Back: No spinal tenderness. No costovertebral tenderness. Full range of motion. Skin: Warm, dry with normal turgor. Normal color with no rashes, no lesions, and no evidence of cellulitis. MS/ Extremity: Pulses equal, no cyanosis. Neurovascular intact. Full, normal range of motion. Neuro: Awake and alert, GCS 15, oriented to person, place, time, and situation. Cranial nerves II-XII grossly intact. Motor strength 5/5 in all extremities. Sensory grossly intact. Cerebellar exam normal. Normal gait. Psych: Awake, alert, with orientation to person, place and time. Behavior, mood, and affect are within normal limits. 18:44 Cardiovascular: Rate: tachycardic, Rhythm: Pulses: Pulses are 4+ in bilateral radial, brachial, femoral, popliteal, posterior tibial and and dorsalis pedis arteries.. Heart sounds: normal, normal S1and S2, no S3 or S4, no murmur, no rub, no gallop, Edema: is not appreciated, JVD: is not appreciated. 20:09 ECG was reviewed by the Attending Physician. [facility] Vital Signs: 18:02 BP 106 / 71; Pulse 123; Resp 24; Temp 97.5; Pulse Ox 100% on R/A; Weight 54.43 kg; ph Height 4 ft. 10 in. (147.32 cm); 20:00 BP 119 / 74; Pulse 125; Resp 20; Pulse Ox 100% on R/A; jb4 21:00 BP 111 / 66; Pulse 127; Resp 17; Pulse Ox 100% on R/A; jb4 22:00 BP 132 / 82; Pulse 128; Resp 19; Pulse Ox 100% on R/A; jb4 23:00 BP 125 / 85; Pulse 127; Resp 18; Pulse Ox 100% on R/A; jb4 18:02 Body Mass Index 25.08 (54.43 kg, 147.32 cm) ph Procedures: 19:17 Central Line: the site was prepped with Betadine, in sterile fashion, a triple lumen tam catheter was inserted, in the right femoral vein, in 1 attempts. placement was verified, by blood return, the site was dressed with using sterile technique, the patient tolerated the procedure, well. MDM: 18:24 Patient medically screened. tam 18:48 Differential diagnosis: gastritis, pancreatitis, viral gastroenteritis, tam gastroenteritis. Differential Diagnosis altered mental status, sepsis, flu. Differential Diagnosis: electrolyte abnormality, overdose, pneumonia, sepsis, UTI, volume depletion. Data reviewed: vital signs, nurses notes, lab test result(s), EKG, radiologic studies. Data interpreted: classroom monitor: rate is 123 beats/min, rhythm is regular. Test interpretation: by ED physician or midlevel provider: ECG, plain radiologic studies. Counseling: I had a detailed discussion with the patient and/or guardian regarding: the historical points, exam findings, and any diagnostic results supporting the discharge/admit diagnosis, lab results, radiology results. 07/04 17:15 Order name: CBC with Diff; Complete Time: 21:30 [facility] 07/04 17:15 Order name: CMP; Complete Time: 20:07 [facility] 07/04 17:15 Order name: Lipase; Complete Time: 20:07 [facility] 07/04 17:15 Order name: Urine Microscopic Only [facility] 07/04 18:17 Order name: Glucose, Ancillary Testing; Complete Time: 18:34 EDKS 07/04 18:35 Order name: ABG; Complete Time: 20:01 [facility] 07/04 18:35 Order name: Blood Culture Adult (2) [facility] 07/04 18:43 Order name: Lactate w/ 2H reflex if indic.; Complete Time: 20:38 [facility] 07/04 18:43 Order name: COVID-19/FLU A+B; Complete Time: 20:38 [facility] 07/04 19:22 Order name: Test, Serum; Complete Time: 20:07 [facility] 07/04 20:24 Order name: Glucose, Ancillary Testing; Complete Time: 20:38 [facility] 07/04 20:57 Order name: Chem 7 [facility] 07/04 21:06 Order name: Manual Differential; Complete Time: 21:30 [facility] 07/04 21:53 Order name: Urine Dipstick-Ancillary [facility] 07/04 17:15 Order name: IV Saline Lock; Complete Time: 19:34 [facility] 07/04 17:15 Order name: Labs collected and sent; Complete Time: 19:34 [facility] 07/04 17:15 Order name: Urine Dipstick-Ancillary (obtain specimen); Complete Time: 21:53 [facility] 07/04 17:15 Order name: EKG; Complete Time: 17:16 [facility] 07/04 17:15 Order name: Chest Single View XRAY; Complete Time: 18:34 [facility] 07/04 21:53 Order name: Glucose, Ancillary Testing [facility] 07/04 22:56 Order name: Glucose, Ancillary Testing [facility] 07/04 17:15 Order name: EKG - Nurse/Tech; Complete Time: 20:08 [facility] 07/04 18:42 Order name: Central Line Kit; Complete Time: 19:33 [facility] 07/04 20:01 Order name: [place]; Complete Time: 20:23 [facility] EC:09 Rate is 125 beats/min. Rhythm is regular. QRS [place] is Normal. NM interval is normal. [facility] QRS interval is normal. QT interval is normal. No Q waves. T waves are Normal. No ST changes noted. Clinical impression: Sinus tachycardia and No evidence of ischemia. Interpreted by me. Reviewed by me. Administered Medications: 19:33 Drug: NS 0.9% 1000 ml Route: IV; Rate: 1 bolus; Site: right femoral; kc6 19:34 Drug: NS 0.9% 1000 ml Route: IV; Rate: 1 bolus; Site: right femoral; kc6 19:34 Drug: Pepcid (famotidine) 20 mg Route: IVP; Site: right femoral; kc6 19:34 Drug: Zofran (Ondansetron) 4 mg Route: IVP; Site: right femoral; kc6 19:34 Drug: morphine 2 mg Route: IVP; Infused Over: 4 mins; Site: right forearm; kc6 19:34 Drug: Rocephin (cefTRIAXone) 1 grams Route: IV; Rate: per protocol; Site: right femoral;jb4 19:49 Drug: NS 0.9% 1000 ml Route: IV; Rate: 125 ml/hr; Site: right femoral; jb4 20:15 Drug: Insulin Drip - (Insulin Regular Human 100 units, NS 0.9% 100 ml) {Co-Signature: [email or web address] ha1 (So Ordonez RN).} {Note: started at 5.[address] Leon and per protocol..} Route: IV; Rate: 6 units/hr; Site: right femoral; 22:57 Follow up: Medication paused per protocol jb4 22:57 Drug: D5-1/2 NS 1000 ml Route: IV; Rate: 125 ml/hr; Site: right femoral; jb4 Disposition: 19:18 Critical Care:. tam Disposition Summary: 07/04/22 19:22 Transfer Ordered Transfer Location: [facility] tam Reason: Higher level of care tam Condition: Serious(07/04/22 19:22) tam Problem: new(07/04/22 19:22) tam Symptoms: are unchanged(07/04/22 19:22) tam Accepting Physician: to icu, [facility](07/04/22 23:47) jb4 Diagnosis - Type 1 diabetes mellitus with ketoacidosis without coma(07/04/22 19:22) tam - Weakness tam - Elevated white blood cell count tam Forms: - Medication Reconciliation Form tam - SBAR form tam Critical care time excluding procedures: 19:18 Critical care time: Bedside Care: 30 minutes, Consultation: 10 minutes, Family tam Intervention: 10 minutes. Total time: 50 minutes Signatures: Dispatcher [employer] Niko Estrada MD MD cha Attema, Lee, SHREDDED FILLER MACHINE WRAPPER LAYER-C SHREDDED FILLER MACHINE WRAPPER LAYER-Cla1 Linda Lara, RN RN ph Niko Murray PA PA cp Bryson, James, RN RN jb4 Monique Torrez MD MD sd2 Kelsey Chavez RN RN kc6 So Ordonez RN ha1 Corrections: (The following items were deleted from the chart) 19:21 19:17 Inpatient Admission tam tam 19:21 19:17 Juan PabloKyree tam tam 19:21 19:17 Intensive Care Unit tam tam 19:21 19:17 Serious tam tam 19:21 19:17 new tam tam 19:21 19:17 have improved tam tam 19:21 19:17 Standard tam tam 19:21 19:17 tam tam 19:21 19:17 Type 1 diabetes mellitus with ketoacidosis without coma tam tam 20:02 19:22 to icu, [facility] tam tam 20:24 17:15 Urine Test ordered. [facility] jb4 23:47 20:02 to icu, [facility] jb4
--- NOTE | 2022-07-04 19:17 | ER ---
Nurse's Notes [facility] Name: Cristina Wheeler Age: 32 yrs Sex: Female : 1990 Arrival Date: 07/04/2022 Time: 17:02 Bed 5 Private MD: Diagnosis: Type 1 diabetes mellitus with ketoacidosis without coma;Weakness;Elevated white blood cell count Presentation: 07/04 18:02 Chief complaint: Spouse and/or significant other states: N/V, abdominal pain , chest ph pain, type 1 diabetic, BGL at home in 300s, hx of DKA. Coronavirus screen: Vaccine status: Patient reports being unvaccinated. Ebola Screen: No symptoms or risks identified at this time. Initial Sepsis Screen: Does the patient meet any 2 criteria? No. Patient's initial sepsis screen is negative. Does the patient have a suspected source of infection? No. Patient's initial sepsis screen is negative. Risk Assessment: Do you want to hurt yourself or someone else? Patient reports no desire to harm self or others. Onset of symptoms was July 04, 2022. 18:02 Method Of Arrival: Wheelchair ph 18:02 Acuity: KM 2 ph Triage Assessment: 18:06 General: Appears in no apparent distress. uncomfortable, Behavior is crying, fussy, ph inappropriate for age. Pain: Complains of pain in abdomen. GI: Reports lower abdominal pain, upper abdominal pain, nausea, vomiting. 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 - Social history:: Smoking status: Reported history of juuling and/or vaping. Screenin:15 Abuse screen: Denies threats or abuse. Nutritional screening: No deficits noted. jb4 Tuberculosis screening: No symptoms or risk factors identified. Fall Risk None identified. Assessment: 19:34 General: Appears in no apparent distress. uncomfortable, Behavior is cooperative, kc6 anxious, inappropriate for age, restless. Neuro: Hernández Agitation-Sedation Scale (RASS): +1 Restless Level of Consciousness is awake, alert, obeys commands, Oriented to person, place, time, situation, Appropriate for age. Respiratory: Airway is patent Trachea midline Respiratory effort is even, unlabored, Respiratory pattern is regular, symmetrical. 20:30 Reassessment: Patient appears in no apparent distress at this time. Patient and/or jb4 family updated on plan of care and expected duration. Pain level reassessed. Patient is alert, oriented x 3, equal unlabored respirations, skin warm/dry/pink. 21:30 Reassessment: Patient appears in no apparent distress at this time. Patient and/or jb4 family updated on plan of care and expected duration. Pain level reassessed. Patient is alert, oriented x 3, equal unlabored respirations, skin warm/dry/pink. 22:21 Reassessment: Attempted to call report to receiving facility, instructed to wait for jb4 call back. 23:45 Reassessment: Patient appears in no apparent distress at this time. Patient and/or jb4 family updated on plan of care and expected duration. Pain level reassessed. Patient is alert, oriented x 3, equal unlabored respirations, skin warm/dry/pink. Vital Signs: 18:02 BP 106 / 71; Pulse 123; Resp 24; Temp 97.5; Pulse Ox 100% on R/A; Weight 54.43 kg; ph Height 4 ft. 10 in. (147.32 cm); 20:00 BP 119 / 74; Pulse 125; Resp 20; Pulse Ox 100% on R/A; jb4 21:00 BP 111 / 66; Pulse 127; Resp 17; Pulse Ox 100% on R/A; jb4 22:00 BP 132 / 82; Pulse 128; Resp 19; Pulse Ox 100% on R/A; jb4 23:00 BP 125 / 85; Pulse 127; Resp 18; Pulse Ox 100% on R/A; jb4 18:02 Body Mass Index 25.08 (54.43 kg, 147.32 cm) ph ED Course: 17:02 Patient arrived in ED. as 17:13 iNko Leon MD is Attending Physician. tam 17:34 Chest Single View XRAY In Process Unspecified. EDMS 18:06 Triage completed. ph 18:07 Arm band placed on Patient placed in an exam room. ph 18:30 Chavez, Kelsey, RN is Primary Nurse. kc6 19:15 Patient has correct armband on for positive identification. Bed in low position. Call jb4 light in reach. Side rails up X 1. Client placed on continuous cardiac and pulse oximetry monitoring. NIBP monitoring applied. threat monitoring analyst on. 19:16 Kyree Almeida MD is Hospitalizing Provider. tam 19:25 Initiated transfer to [facility], spoke with Maryse Joel, she stated Pt will likely go to [facility]. 20:55 Pt accepted for transfer by Dr. Veronika Mary \T\ 2013 per Maryse Joel. Pt accepted to [facility]. 23:46 No provider procedures requiring assistance completed. Patient transferred, IV remains jb4 in place. Administered Medications: 19:33 Drug: NS 0.9% 1000 ml Route: IV; Rate: 1 bolus; Site: right femoral; kc6 19:34 Drug: NS 0.9% 1000 ml Route: IV; Rate: 1 bolus; Site: right femoral; kc6 19:34 Drug: Pepcid (famotidine) 20 mg Route: IVP; Site: right femoral; kc6 19:34 Drug: Zofran (Ondansetron) 4 mg Route: IVP; Site: right femoral; kc6 19:34 Drug: morphine 2 mg Route: IVP; Infused Over: 4 mins; Site: right forearm; kc6 19:34 Drug: Rocephin (cefTRIAXone) 1 grams Route: IV; Rate: per protocol; Site: right femoral;jb4 19:49 Drug: NS 0.9% 1000 ml Route: IV; Rate: 125 ml/hr; Site: right femoral; jb4 20:15 Drug: Insulin Drip - (Insulin Regular Human 100 units, NS 0.9% 100 ml) {Co-Signature: jb4 ha1 (So Ordonez RN).} {Note: started at 5.[address] Leon and per protocol..} Route: IV; Rate: 6 units/hr; Site: right femoral; 22:57 Follow up: Medication paused per protocol jb4 22:57 Drug: D5-1/2 NS 1000 ml Route: IV; Rate: 125 ml/hr; Site: right femoral; jb4 Medication: 23:00 VIS not applicable for this client. jb4 Intake: Outcome: 19:17 Decision to Hospitalize by Provider. tam 19:22 ER care complete, transfer ordered by . tam 23:46 Transferred by ground EMS [place] [facility] completed. jb 23:46 Condition: stable 23:46 Discharge instructions given to patient, Instructed on the need for transfer, Demonstrated understanding of instructions. 23:47 Patient left the ED. jb4 Signatures: Dispatcher [employer] EDFL Niko Leon MD MD cha Martinez, Amelia as Hall, Patricia, RN RN Heriberto Mayo RN RN jb4 Shabana Ball Kaitlyn, RN RN kc6 oS Ordonez RN ha1
[2022-07-04] MEDS ORDERED: NA CHLORIDE 0.9% 1,000 ML ONE (19:25)
[2022-07-04] MEDS ORDERED: CEFTRIAXONE 1000 MG/VIAL ONE (19:25)
[2022-07-04 19:30] LABS: Absolute Lymphocytes (CBC) 0.8 K/uL (0.7-4.9); Hematocrit 43.9 % (36.0-45.0); Lymphocytes % 4.8 % (15.3-44.8); MCV 89.5 fL (80-100); MPV 9.7 fL (7.6-11.3); RBC Red Blood Cell Count 4.91 M/uL (3.86-4.86)
[2022-07-04 19:49] LABS: Arterial Blood Carboxyhemoglob 1.3 % (0-1.5); Blood Gas Oxyhemoglobin 94.8 % (94-97); Blood O2 Saturation 97.4 % (92-98.5)
[2022-07-04] MEDS ORDERED: NA CHLORIDE 0.9% 100 ML IV ONE (19:52)
[2022-07-04] MEDS ORDERED: INSULIN -REGULAR HUMAN 50 UNIT/0.5 ML ML ONE (19:52)
[2022-07-04 19:59] LABS: ALT/SGPT 16 U/L (12-78); AST/SGOT 6 U/L (15-37); Albumin 3.8 g/dL (3.4-5.0); Alkaline Phosphatase 100 U/L (45-117); BUN Blood Urea Nitrogen 15 mg/dL (7-18); Bilirubin Total 0.6 mg/dL (0.2-1.0); Glomerular Filtration Rate 85 ml/min (=/>90); Glucose Level 409 mg/dL (74-106); Lipase 77 U/L (73-393); Potassium 4.5 mmol/L (3.5-5.1); Protein, Total 7.8 g/dL (6.4-8.2); Sodium Level 136 mmol/L (136-145)
[2022-07-04 20:02] LABS: Bicarbonate < 8 mmol/L (21-32)
[2022-07-04 20:25] LABS: SARS-COV-2 RT PCR NEGATIVE (NEGATIVE)
[2022-07-04 21:06] LABS: Blood Morphology Comment NOT SEEN (NOT SEEN); Platelet Estimate ADEQ
[2022-07-04 21:52] LABS: Urine Blood 2+ (Negative); Urine Glucose 2+ (Negative); Urine Protein 2+ (Negative); Urine Specific Gravity >=1.030 (1.005-1.030)
[2022-07-04 22:11] LABS: Urine Mucus Slight /HPF (None Seen); Urine RBC <5 /HPF (None Seen)
[2022-07-04] MEDS ORDERED: D5 0.45 NS 1,000 ML IV ONE (22:52)
[2022-07-04 22:56] LABS: BUN Blood Urea Nitrogen 14 mg/dL (7-18); Glomerular Filtration Rate 107 ml/min (=/>90); Glucose Level 234 mg/dL (74-106); Potassium 3.9 mmol/L (3.5-5.1); Sodium Level 143 mmol/L (136-145)
[2022-07-04 23:03] LABS: Bicarbonate < 8 mmol/L (21-32)
[2022-07-04 23:51] VITALS: TEMP 97.5; O2SAT 100
[2022-07-04 23:56] VITALS: BP 125/85
--- NOTE | 2022-07-05 15:29 | EKG ---
Test Date: 2022-07-04 Test Time: 20:06:08 Road Contractor: RUSSEL MEASUREMENT RESULTS: Intervals: Rate: 125 MO: 124 QRSD: 76 QT: 338 QTc: 487 [place]: P: 75 MO: 124 QRS: 86 T: 50 INTERPRETIVE STATEMENTS: Sinus tachycardia Possible Left atrial enlargement Nonspecific ST abnormality Abnormal ECG Compared to ECG 05/01/2022 05:01:15 ST (T wave) deviation now present Electronically Signed On 07-05-22 15:27:41 DRESSAGE INSTRUCTOR by Sonny Lieberman
== END 2022-07-04 23:47 | disposition short-term general hospital (02) ==
LOC: ER 16:59
DX: E10.10 Type 1 diabetes mellitus with ketoacidosis without coma (principal); D72.829 Elevated white blood cell count, unspecified; Z20.822 Contact with and (suspected) exposure to COVID-19; Z88.0 Allergy status to penicillin; Z88.2 Allergy status to sulfonamides; Z88.8 Allergy status to other drugs, medicaments and biological substances; Z91.018 Allergy to other foods
CPT/HCPCS: 93005; 87040 ×2; 85025; 80048; 36415; 87205; 84703; 82947 ×4; 83605; 83690; 80053; 0240U; 71045; 82805; 99285; J1815; J2270; J7799; J7030 ×2; J2405; 81003; 81015

== ENCOUNTER 2022-10-22 19:33 | Emergency (ER) | payer OTHER ==
--- OUTSIDE RECORDS SUMMARY | 2022-10-22 19:38 | XMS REPORT | Continuity of Care Document ---
:1990 Author Organization [facility] t Address [address] [place] [address] Care Team Providers Name Role Phone Provider, Unknown Primary Care Physician Unavailable YULIA MARY Attending Clinician Unavailable POPPY MANZO Attending Clinician Unavailable Yulia Mary MD Attending Clinician Betito MILLER, Mayo Thomas Attending Clinician [phone] Noman Almodovar MD Attending Clinician Poppy Manzo MD Attending Clinician NEYMAR CAVAZOS Attending Clinician Unavailable Neymar Cavazos MD Attending Clinician Jeffry Fuchs Attending Clinician Unavailable Linda Yu Attending Clinician Unavailable YULIA MARY Admitting Clinician Unavailable Payers Payer Name Policy Type Policy Number Effective Date Expiration Date Kely camp [facility] COMM STAR [id number] 2022 PLAN 00:00:00 [facility] [id number] 2019 PLUS 00:00:00 [place] [id number] 2019 00:00:00 Problems Condition Condition Condition Status Onset Resolution Last Treating Co mments Source Name Details Category Date Date Treatment Clinician Date DKA DKA Disease Active 2021-[address] [facility] (diabetic (diabetic 09-04 [facility] ketoacidos ketoacidos 00:00: Me dical is) is) 00 Center Allergies, Adverse Reactions, Alerts Allergy Allergy Status Severity Reaction(s) Onset Inactive Treating Comm ents Source Name Type Date Date Clinician MUSHROOM Allergy Active Low Rash 2021-[address] [facility] Mushroom Propensi Active Rash 2021-[address] [facility] [address] ty to 09-06 [facility] adverse 00:00: Medical reaction 00 Center s PENICILL Allergy Active 2021-[address] [facility] IN 09-04 [facility] 00[facility] Medical 00 Center SULFA Allergy Active 2021-[address] [facility] [address] (SULFONA 09-04 [facility] MIDE 00:00: Medical ANTIBIOT 00 Center ICS) Penicill Propensi Active 2021-[address] in ty to 09-04 [facility] adverse 00:00: Medical reaction 00 Center s Sulfa Propensi Active 2021-[address] [facility] (Sulfona ty to 09-04 [facility] mide adverse 00:00: Medical Antibiot reaction 00 Center ics) s SULFA Drug Active Unknown-Cmnt Univ ers (SULFONA Class 9-01 ity of MIDE 00:00: [place] ANTIBIOT 00 Medical ICS) Branch Penicill DA Active [facility] ins 03-21 [facility] 00:00: d 00 [facility] [place] Sulfa DA Active [facility] (Sulfona 03-21 [place] mide 00:00: d Antibiot 00 Medical ics) Center ibuprofe DA Active [facility] n 03-21 [place] 00:00: d 00 [facility] sulfamet DA Active [facility] hoxazole 03-21 [place] 00:00: d 00 [facility] [place] trimetho DA Active [facility] prim 03-21 [facility] 00:00: d 00 [facility] Center penicill DA Active [facility] in G 03-21 [place] 00:00: d 00 [facility] [place] shellfis DA Active [facility] h 03-21 [facility] derived 00:00: d 00 [facility] [place] spinach DA Active [facility] 03-21 [facility] 00:00: d 00 Medical Center Ibuprofe Propensi Active Method i n ty [...] Univers INS Class 5-06 ity of 00:00: [place] [address] Medical Branch Social History Social Habit Start Date Stop Date Quantity Comments Source Tobacco use and 2017-11-15 2017-11-15 Smokeless tobacco [facility] exposure 00:00:00 00:00:00 non-user Hospital Alcohol intake 2017-11-15 2017-11-15 Current drinker of [facility] 00:00:00 00:00:00 alcohol (finding) Hospita l Alcohol Comment 2017-11-15 2017-11-15 occasional Y[facility]idi 00:00:00 00:00:00 Hospital Sex Assigned At [address] [address] [facility] 00:[facility] Smoking Status Start Date Stop Date Source Never smoked tobacco [facility] Medications Ordered Filled Start Stop Current Ordering Indication Dosage Frequency Signature Comments Components Source Medication Medication Date Date Medication? Clinician (SIG) Name Name acetaminoph 2021-08- No 650mg Take [address] en 09-0618 tablets [facility] (TYLENOL) 00:00: 23:59 (650 mg Medi cierra 325 MG 00 :00 total) by Center tablet mouth every 6 (six) hours as needed for up to 360 days. benzonatate 2021-08 No 100mg Take [address] (TESSALON) 1-23 11-30 capsule [facility] 100 MG 00:00: 23:59 (100 mg Medical capsule 00 :00 total) by Center mouth 3 (three) times daily as needed for Cough for up to 7 days. oseltamivir 2021-08 75mg Q.5D Take 1 MELISSA Dwyer (TAMIFLU) 09-06 capsule [facility] 75 MG 00:00: 23:59 (75 mg Medical capsule 00 :00 total) by Center mouth 2 (two) times daily for 3 days. No known No No known Metho di medications 4- medication st 06:03: s Hospita 15 l No known No No known Metho di medications [address] 06:03: s [facility]osp[facility] 15 l Vital Signs Vital Name Observation Time Observation Value Comments Source WEIGHT 2022-07-07 04:06:00 52.3 kg WEIGHT 2022-07-06 06:00:00 48.6 kg WEIGHT 2022-07-05 05:35:00 49.9 kg HEIGHT 2022-07-05 05:00:00 149.9 cm WEIGHT 2022-07-05 02:00:00 49.9 kg WEIGHT 2022-07-07 04:06:00 52.3 kg WEIGHT 2022-07-06 06:00:00 48.6 kg WEIGHT 2022-07-05 05:35:00 49.9 kg HEIGHT 2022-07-05 05:00:00 149.9 cm WEIGHT 2022-07-05 02:00:00 49.9 kg WEIGHT 2022-07-07 04:06:00 52.3 kg WEIGHT 2022-07-06 06:00:00 48.6 kg WEIGHT 2022-07-05 05:35:00 49.9 kg HEIGHT 2022-07-05 05:00:00 149.9 cm WEIGHT 2022-07-05 02:00:00 49.9 kg Systolic blood 2022-07-07 11:01:00 99 mm[Hg] [facility] Diastolic blood 2022-07-07 11:01:00 63 mm[Hg] [facility] Heart rate 2022-07-07 11:01:00 95 /min [facility] Body temperature 2022-07-07 11:01:00 35.78 Tiffany [facility] Respiratory rate 2022-07-07 11:01:00 18 /min [facility] Oxygen saturation in 2022-07-07 11:01:00 98 /min [facility] Arterial blood by Medical Ce nter Pulse oximetry Body weight 2022-07-07 04:06:00 52.3 kg [facility] BMI 2022-07-07 04:06:00 23.29 kg/m2 [facility] Body height 2022-07-05 05:00:00 149.9 cm [facility] Procedures Procedure Date / Time Performed Performing Clinician Souradrián e POCT-GLUCOSE METER 2022-07-07 11:04:00 Shaylee Poppy [facility] POCT-GLUCOSE METER 2022-07-07 07:53:00 Shaylee [facility] CBC W/PLT COUNT & AUTO 2022-07-07 04:55:00 Carlos Gooden [facility] BASIC METABOLIC PANEL 2022-07-07 04:55:00 Johnny Torres [facility] MAGNESIUM 2022-07-07 04:55:00 Antione Todd [facility] PHOSPHORUS 2022-07-07 04:55:00 Antione Todd [facility] CBC W/PLT COUNT & AUTO 2022-07-07 04:55:00 Carlos Gooden [facility] POCT-GLUCOSE METER 2022-07-06 21:36:00 [facility] POCT-[facility]UCOSE METER 2022-07-06 17:39:[address] [facility] POCT-GLUCOSE METER 2022-07-06 16:38:[address] [facility] POCT-GLUCOSE METER 2022-07-06 16:18:[address] [facility] POCT-GLUCOSE METER 2022-07-06 10:56:[address] [facility] BASIC METABOLIC PANEL 2022-07-06 08:10:00 Maryanne Meade [facility] BLOOD GAS, VENOUS 2022-07-06 08:10:00 Maryanne Meade [facility] MAGNESIUM 2022-07-06 08:10:00 Maryanne Meade [facility] PHOSPHORUS 2022-07-06 08:10:00 [facility] POCT-GLUCOSE METER 2022-07-06 07:40:00 [facility] BASIC METABOLIC PANEL 2022-07-06 05:07:00 Maryanne Meade [facility] BLOOD GAS, VENOUS 2022-07-06 05:07[facility]00 [facility]-07-06 05:07:00 [facility] 2022-07-06 05:07:00 [facility] CBC W/PLT COUNT & AUTO 2022-07-06 05:07:00 Carlos Gooden [facility] CBC W/PLT COUNT & AUTO 2022-07-06 05:07:00 Carlos Gooden [facility] BASIC METABOLIC PANEL 2022-07-06 01:13:00 Maryanne Meade [facility] BLOOD GAS, VENOUS 2022-07-06 01:13:00 Maryanne Meade [facility] MAGNESIUM 2022-07-06 01:13:00 Maryanne Meade [facility] PHOSPHORUS 2022-07-06 01:13:00 Maryanne Meade [facility] POCT-GLUCOSE METER 2022-07-06 00:02:00 [facility] POCT-GLUCOSE METER 2022-07-05 23:04:00 Betito [facility] POCT-GLUCOSE METER 2022-07-05 22:12:00 Betito [facility] BLOOD GAS, VENOUS 2022-07-05 21:27:00 Maryanne Meade [facility] MAGNESIUM 2022-07-05 21:17:00 Maryanne Meade [facility] PHOSPHORUS 2022-07-05 21:17:00 Maryanne Meade [facility] BASIC METABOLIC PANEL 2022-07-05 21:17:00 Maryanne Meade [facility] POCT-GLUCOSE METER 2022-07-05 21:15:00 Mayo Cisse [facility] POCT-GLUCOSE METER 2022-07-05 16:39:00 Mayo Cisse [facility] POCT-GLUCOSE METER 2022-07-05 15:38:00 Mayo Cisse [facility] POCT-GLUCOSE METER 2022-07-05 14:24:00 Mayo Cisse [facility] POCT-GLUCOSE METER 2022-07-05 13:20:00 Mayo Cisse [facility] POCT-GLUCOSE METER 2022-07-05 12:44:00 Mayo Cisse [facility] BASIC METABOLIC PANEL 2022-07-05 12:34:00 Maryanne Meade [facility] BLOOD GAS, VENOUS 2022-07-05 12:34:00 Maryanne Meade [facility] MAGNESIUM 2022-07-05 12:34:00 Maryanne Meade [facility] PHOSPHORUS 2022-07-05 12:34:00 [facility] POCT-GLUCOSE METER 2022-07-05 11:37:00 Mayo Cisse [facility] POCT-GLUCOSE METER 2022-07-05 10:36:00 Mayo Cisse [facility] POCT-GLUCOSE METER 2022-07-05 09:24:00 Mayo Cisse [facility] POCT-GLUCOSE METER 2022-07-05 08:33:00 Mayo Cisse [facility] BASIC METABOLIC PANEL 2022-07-05 08:23:00 Maryanne Meade [facility] BLOOD GAS, VENOUS 2022-07-05 08:23:00 Maryanne Meade [facility] MAGNESIUM 2022-07-05 08:23:00 Maryanne Meade [facility] PHOSPHORUS 2022-07-05 08:23:00 Maryanne Meade [facility] POCT-GLUCOSE METER 2022-07-05 07:32:[facility] 2022-07-05 07:22:00 [facility] POCT-GLUCOSE METER 2022-07-05 06:31:[facility] 2022-07-05 05:30:00 [facility] BLOOD [facility]URE 2022-07-05 04:44:00 [facility] SARS-COV2/INFLUENZA/RSV 2022-07-05 04:33:00 [facility] BASIC METABOLIC PANEL 2022-07-05 04:32:00 Maryanne Meade [facility] BLOOD GAS, VENOUS 2022-07-05 04:32:00 Maryanne Meade [facility] MAGNESIUM 2022-07-05 04:32:00 Maryanne Meade [facility] PHOSPHORUS 2022-07-05 04:32:00 [facility] HEMOGLOBIN A1C 2022-07-05 04:32:00 [facility] HIGH SENSITIVITY 2022-07-05 04:32:00 Maryanne Meade [facility] TROPONIN I [facility] CBC W/PLT COUNT & AUTO 2022-07-05 04:32:00 Maryanne Meade [facility] TSH/FREE T4 IF INDICATED 2022-07-05 04:32:00 Maryanne Meade [facility] LACTIC ACID, VENOUS 2022-07-05 04:32:00 Maryanne Meade [facility] CBC W/PLT COUNT & AUTO 2022-07-05 04:32:00 Maryanne Meade [facility] POCT-GLUCOSE METER 2022-07-05 04:23:00 [facility] POCT-GLUCOSE METER 2022-07-05 02:40:[address] [facility] POCT-GLUCOSE METER 2022-07-05 01:32:[address] [facility] EKG-SCANNED 2022-07-05 00:00:00 [address]Em[address] [facility] Scanning [facility] Plan of Care Planned Activity Planned Date Details Comments Source Future Scheduled 2022-08-[address] [facility] Test 00:00:00 (12+) [code = [facility] Center DEPRESSION SCREENING (12+)] Future Scheduled 2022-07-[address] [facility] Test 00:00:00 measurement Medical Center (procedure) [code = 31892887] Future Scheduled 2022-04-15 INFLUENZA VACCINE (#1) [facility] 00:00:00 [code = INFLUENZA Medical Ce nter VACCINE (#1)] Future Scheduled 2017-01-05 DTAP/TDAP/TD VACCINES [facility] Test 00:00:00 (7 - Td or Tdap) [code Medic al Center = DTAP/TDAP/TD VACCINES (7 - Td or Tdap)] Future Scheduled [address] [facility] Test 00:00:00 malignant neoplasm of Medica l Center cervix (procedure) [code = 369341120] Future Scheduled [address] [facility] Test 00:00:00 (procedure) [code = Medical Center 09614018] Future Scheduled 2009 HEPATITIS C SCREENING [facility] Test 00:00:00 [code = HEPATITIS C Medical Center SCREENING] Future Scheduled [address] [facility] Test 00:00:00 Counseling and Medical Cente r Screening (12+) [code = Tobacco Cessation Counseling and Screening (12+)] Future Scheduled [address] [facility] Test 00:00:00 examination Medical Center (regime/therapy) [code = 749912435] Future Scheduled 2001 Urine screening for [facility] Test 00:00:00 protein (procedure) Medical Center [code = 926267477] Future Scheduled [address]ABETIC EYE EXAM [facility] Test 00:00:00 [code = DIABETIC EYE Medical Center EXAM] Future Scheduled [address] [facility] Test 00:00:00 0-64 YRS (1 - PCV) Medical C enter [code = PNEUMOCOCCAL VACCINE 0-64 YRS (1 - PCV)] Future Scheduled 1991 COVID-19 VACCINE (#1) [facility] Test 00:00:00 [code = COVID-[address] VACCINE (#1)] Encounters Start End Encounter Admission Attending Care Care Encounter Source Date/Time Date/Time Type Type Clinicians Facility Department ID 2022-07-05 2022-07-07 Inpatient ER [facility] Medical ICU [id number] [facility] 01:07:00 16:32:00 [facility] 2022-07-05 2022-07-07 [facility] Yulia Mary [facility] [id number] [facility] 01:07:00 16:32:00 [facility] 2020-12-12 2020-12-12 Outpatient R ALOK [facility] [id number] [facility] 13:30:00 13:30:00 NEYMAR gan [facility] 2020-06-20 2020-06-20 Office Alok [facility] [id number] 10:27:33 12:32:24 Visit Neymar Sandoval [id number] Vanessa [id number] Indu [id number] [address] 2020-06-20 2020-06-20 Outpatient R ALOK [facility] [id number] [facility] 11:00:00 11:00:00 NEYMAR gan [facility] 2018-07-27 2018-07-27 Outpatient Jef ROHAN CHW [id number] [place] 10:52:00 10:52:00 [facility] Yaima kiki [facility] 2018-06-14 2018-06-14 Outpatient Jef ROHAN W [id number] [place] 11:19:00 11:19:00 Milliejason Campbell [facility] 2018-05-23 2018-05-23 Outpatient GigiROHAN W [id number] [place] 16:00:00 16:00:00 [facility] Results Test Description Test Time Test Comments Results Result Comments Source BLOOD CULTURE 2022-07-10 07:01:24 Test Item Value Reference Range Interpretation Comme nts CULTURE [facility] (test code = 1095) No growth in 5 days POC-Glucose [id number] 11:21:34 Test Item Value Reference Range Interpretation Comments POC-Glucose Meter (test 258 mg/dL 70-110 H : TE STED AT [facility] code = 1538) [address] [facility], 770 30: Order Entry Technician/Techni yessi ID = [id number] for ELIANCLAYTON IE Lab Interpretation (test Abnormal code = 71492-1) [facility] [id number] 11:21:34 Test Item Value Reference Range Interpretation Comments POC-GLUCOSE METER 258 mg/dL 70-110 H : TESTED A T [facility] 6720 (BEAKER) (test code [facility], = 1538) 58347: Order Entry Technician/Techni yessi ID = [id number] for WILS ON, SHASTANIE POCT-GLUCOSE [id number] 08:11:52 Test Item Value Reference Range Interpretation Comments POC-GLUCOSE METER 139 mg/dL 70-110 H : TESTED A T [facility] 6720 (BEAKER) (test code [facility], = 1538) 43702: Order Entry Technician/Techni yessi ID = [id number] for WILS ON, SHASTANIE BASIC METABOLIC [id number] 06:34:19 Test Item Value Reference Range Interpretation Comments SODIUM (BEAKER) 140 meq/L 136-145 (test code = 381) POTASSIUM 4.0 meq/L 3.5-5.1 (BEAKER) (test code = 379) CHLORIDE (BEAKER) 106 meq/L 98-107 (test code = 382) CO2 (BEAKER) 26 meq/L 22-29 (test code = 355) BLOOD UREA 6 mg/dL 7-21 L NITROGEN (BEAKER) (test code = 354) CREATININE 0.57 mg/dL 0.57-1.25 (BEAKER) (test code = 358) GLUCOSE RANDOM 196 mg/dL 70-105 H (BEAKER) (test code = 652) CALCIUM (BEAKER) 8.1 mg/dL 8.4-10.2 L (test code = 697) EGFR (BEAKER) 125 Interpretatio n of eGFR (test code = mL/min/1.73 values Stage De scription 1092) sq m Result G1 Bridgett l or high >=90 G2 Mildly decreased 60-89 G3a Mildl y to moderately 45-5 9 G3b Moderately to s everely 30-44 G4 Severl y decreased 15-29 G5 Kidney failure <15Reported eGF R is based on the CKD-EPI 2020 equation that d oes not use a race coefficientEsti mated GFR is not as accur ate as Creatinine Carmen gray in predicting glom erular filtration rate . Estimated GFR is not appl icable for dialysis patien ts Order Entry Technician ID - MEET [id number] 06:34:19 Test Item Value Reference Range Interpretation Comments MAGNESIUM (BEAKER) (test code = 1.8 mg/dL 1.6-2.6 627) Order Entry Technician ID - MEET [id number] 06:34:19 Test Item Value Reference Range Interpretation Comments PHOSPHORUS (BEAKER) (test code = 3.0 mg/dL 2.3-4.7 604) Order Entry Technician ID - MEET [facility] W/PLT COUNT & AUTO [id number] 05:12:05 Test Item Value Reference Range Interpretation Comments WHITE BLOOD CELL COUNT (BEAKER) 5.5 K/ L 3.5-10.5 (test code = 775) RED BLOOD CELL COUNT (BEAKER) 3.96 M/ L 3.93-5.22 (test code = 761) HEMOGLOBIN (BEAKER) (test code = 11.2 GM/DL 11.2-15.7 410) HEMATOCRIT (BEAKER) (test code = 33.1 % 34.1-44.9 L 411) MEAN CORPUSCULAR VOLUME (BEAKER) 84 fL 79-95 (test code = 753) MEAN CORPUSCULAR HEMOGLOBIN 28.3 pg 25.6-32.2 (BEAKER) (test code = 751) MEAN CORPUSCULAR HEMOGLOBIN CONC 33.8 GM/DL 32.2-35.5 (BEAKER) (test code = 752) RED CELL DISTRIBUTION WIDTH 13.2 % 11.7-14.4 (BEAKER) (test code = 412) PLATELET COUNT (BEAKER) (test 186 K/CU MM 150-450 code = 756) MEAN PLATELET VOLUME (BEAKER) 10.8 fL 9.4-12.3 (test code = 754) NUCLEATED RED BLOOD CELLS 0 /100 WBC 0-0 (BEAKER) (test code = 413) NEUTROPHILS RELATIVE PERCENT 56 % (BEAKER) (test code = 429) LYMPHOCYTES RELATIVE PERCENT 31 % (BEAKER) (test code = 430) MONOCYTES RELATIVE PERCENT 6 % (BEAKER) (test code = 431) EOSINOPHILS RELATIVE PERCENT 6 % (BEAKER) (test code = 432) BASOPHILS RELATIVE PERCENT 1 % (BEAKER) (test code = 437) NEUTROPHILS ABSOLUTE COUNT 3.07 K/ L 1.56-6.13 (BEAKER) (test code = 670) LYMPHOCYTES ABSOLUTE COUNT 1.73 K/ L 1.18-3.74 (BEAKER) (test code = 414) MONOCYTES ABSOLUTE COUNT (BEAKER) 0.33 K/ L 0.24-0.36 (test code = 415) EOSINOPHILS ABSOLUTE COUNT 0.35 K/ L 0.04-0.36 (BEAKER) (test code = 416) BASOPHILS ABSOLUTE COUNT (BEAKER) 0.03 K/ L 0.01-0.08 (test code = 417) IMMATURE GRANULOCYTES-RELATIVE 0.20 % 0.00-1.00 PERCENT (BEAKER) (test code = 2801) POCT-GLUCOSE [id number] 21:47:45 Test Item Value Reference Range Interpretation Comments POC-GLUCOSE METER 286 mg/dL 70-110 H : TESTED A T [facility] 6720 (BEAKER) (test code = NATALIE COLLADO, 1538) 80441: Order Entry Technician/Techni yessi ID = [id number] for SANFORD ZAMUDIO POCT-GLUCOSE [id number] 17:50:44 Test Item Value Reference Range Interpretation Comments POC-GLUCOSE METER 68 mg/dL 70-110 L : TESTED A T [facility] 6720 (BEAKER) (test code = [facility], 1538) 91673: Order Entry Technician/Techni yessi ID = [id number] for RAJI SMART POCT-GLUCOSE [id number] 16:49:27 Test Item Value Reference Range Interpretation Comments POC-GLUCOSE METER 72 mg/dL 70-110 : TESTED A T [facility] 6720 (BEAKER) (test code = [facility], 1538) 69987: Order Entry Technician/Techni yessi ID = [id number] for Arcelia sigan (contract), Tiffany david POCT-GLUCOSE [id number] 16:31:02 Test Item Value Reference Range Interpretation Comments POC-GLUCOSE METER 52 mg/dL 70-110 L : TESTED A T [facility] 6720 (BEAKER) (test code = [facility], 1538) 12327: Order Entry Technician/Techni yessi ID = [id number] for Arcelia sigan (contract), Tiffany david POCT-GLUCOSE [id number] 11:09:38 Test Item Value Reference Range Interpretation Comments POC-GLUCOSE METER 197 mg/dL 70-110 H : TESTED A T [facility] 6720 (BEAKER) (test code [facility], = 1538) 48574: Order Entry Technician/Techni yessi ID = [id number] for Arcelia sigan (contract), Tiffany david BLOOD GAS, [id number] 09:37:51 Test Item Value Reference Range Interpretation Comments PH VENOUS (BEAKER) (test code = 7.37 7.32-7.42 701) PCO2 VENOUS (BEAKER) (test code = 41 mm Hg 41-51 755) PO2 VENOUS (BEAKER) (test code = 56 mm Hg 25-40 H 702) O2 SATURATION VENOUS (BEAKER) 88.4 % 40.0-70.0 H (test code = 703) HCO3 VENOUS (BEAKER) (test code = 24 mmol/L 21-29 705) BASE EXCESS VENOUS (BEAKER) (test -1.7 mmol/L -2.0-3.0 code = 704) PATIENT TEMPERATURE (BEAKER) 37.0 (test code = 1818) FIO2 (BEAKER) (test code = 1819) 21.0 BASIC METABOLIC [id number] 09:05:04 Test Item Value Reference Range Interpretation Comments SODIUM (BEAKER) 137 meq/L 136-145 (test code = 381) POTASSIUM 4.9 meq/L 3.5-5.1 Specimen slight ly (BEAKER) (test hemolyzed code = 379) CHLORIDE (BEAKER) 110 meq/L 98-107 H (test code = 382) CO2 (BEAKER) 23 meq/L 22-29 (test code = 355) BLOOD UREA 3 mg/dL 7-21 L NITROGEN (BEAKER) (test code = 354) CREATININE 0.63 mg/dL 0.57-1.25 Specimen slight ly (BEAKER) (test hemolyzed code = 358) GLUCOSE RANDOM 322 mg/dL 70-105 H (BEAKER) (test code = 652) CALCIUM (BEAKER) 7.9 mg/dL 8.4-10.2 L (test code = 697) EGFR (BEAKER) 122 Interpretatio n of eGFR (test code = mL/min/1.73 values Stage De scription 1092) sq m Result G1 Bridgett l or high >=90 G2 Mildly decreased 60-89 G3a Mildl y to moderately 45-5 9 G3b Moderately to s everely 30-44 G4 Sever ly decreased 15-29 G5 Kidney failure <15Repo rted eGFR is based on the CKD-EPI 2020 equation t hat does not use a race coefficientEsti mated GFR is not as accur ate as Creatinine Carmen gray in predicting glom erular filtration rate . Estimated GFR is not appl icable for dialysis patien ts Order Entry Technician ID - PIDICK [id number] 08:57:01 Test Item Value Reference Range Interpretation Comments MAGNESIUM (BEAKER) 2.0 mg/dL 1.6-2.6 Specimen slightly (test code = 627) hemolyzed Order Entry Technician ID - JUSTEN [id number] 08:57:01 Test Item Value Reference Range Interpretation Comments PHOSPHORUS (BEAKER) 2.4 mg/dL 2.3-4.7 Specimen slightly (test code = 604) hemolyzed Order Entry Technician ID - JUSTEN LPOCT-GLUCOSE [id number] 07:53:47 Test Item Value Reference Range Interpretation Comments POC-GLUCOSE METER 274 mg/dL 70-110 H : TESTED A T [facility] 6720 (BEAKER) (test code [facility], = 1538) 25988: Order Entry Technician/Techni yessi ID = [id number] for Arcelia porras (contract), Tiffany david CBC W/PLT COUNT & AUTO [id number] 06:02:22 Test Item Value Reference Range Interpretation Comments WHITE BLOOD CELL COUNT (BEAKER) 5.5 K/ L 3.5-10.5 (test code = 775) RED BLOOD CELL COUNT (BEAKER) 3.50 M/ L 3.93-5.22 L (test code = 761) HEMOGLOBIN (BEAKER) (test code = 10.1 GM/DL 11.2-15.7 L 410) HEMATOCRIT (BEAKER) (test code = 30.0 % 34.1-44.9 L 411) MEAN CORPUSCULAR VOLUME (BEAKER) 86 fL 79-95 (test code = 753) MEAN CORPUSCULAR HEMOGLOBIN 28.9 pg 25.6-32.2 (BEAKER) (test code = 751) MEAN CORPUSCULAR HEMOGLOBIN CONC 33.7 GM/DL 32.2-35.5 (BEAKER) (test code = 752) RED CELL DISTRIBUTION WIDTH 13.4 % 11.7-14.4 (BEAKER) (test code = 412) PLATELET COUNT (BEAKER) (test 207 K/CU MM 150-450 code = 756) MEAN PLATELET VOLUME (BEAKER) 10.7 fL 9.4-12.3 (test code = 754) NUCLEATED RED BLOOD CELLS 0 /100 WBC 0-0 (BEAKER) (test code = 413) NEUTROPHILS RELATIVE PERCENT 49 % (BEAKER) (test code = 429) LYMPHOCYTES RELATIVE PERCENT 36 % (BEAKER) (test code = 430) MONOCYTES RELATIVE PERCENT 9 % (BEAKER) (test code = 431) EOSINOPHILS RELATIVE PERCENT 5 % (BEAKER) (test code = 432) BASOPHILS RELATIVE PERCENT 1 % (BEAKER) (test code = 437) NEUTROPHILS ABSOLUTE COUNT 2.71 K/ L 1.56-6.13 (BEAKER) (test code = 670) LYMPHOCYTES ABSOLUTE COUNT 1.99 K/ L 1.18-3.74 (BEAKER) (test code = 414) MONOCYTES ABSOLUTE COUNT (BEAKER) 0.50 K/ L 0.24-0.36 H (test code = 415) EOSINOPHILS ABSOLUTE COUNT 0.27 K/ L 0.04-0.36 (BEAKER) (test code = 416) BASOPHILS ABSOLUTE COUNT (BEAKER) 0.04 K/ L 0.01-0.08 (test code = 417) IMMATURE GRANULOCYTES-RELATIVE 0.20 % 0.00-1.00 PERCENT (BEAKER) (test code = 2801) [id number] 05:53:00 Test Item Value Reference Range Interpretation Comments MAGNESIUM (BEAKER) 2.4 mg/dL 1.6-2.6 Specimen slightly (test code = 627) hemolyzed Order Entry Technician ID - JOSEAYA [id number] 05:53:00 Test Item Value Reference Range Interpretation Comments PHOSPHORUS (BEAKER) 2.1 mg/dL 2.3-4.7 L Specimen slightly (test code = 604) hemolyzed Order Entry Technician ID - JOSEAYA LBASIC METABOLIC [id number] 05:53:00 Test Item Value Reference Range Interpretation Comments SODIUM (BEAKER) 141 meq/L 136-145 (test code = 381) POTASSIUM 3.9 meq/L 3.5-5.1 Specimen slight ly (BEAKER) (test hemolyzed code = 379) CHLORIDE (BEAKER) 115 meq/L 98-107 H (test code = 382) CO2 (BEAKER) 20 meq/L 22-29 L (test code = 355) BLOOD UREA 3 mg/dL 7-21 L NITROGEN (BEAKER) (test code = 354) CREATININE 0.54 mg/dL 0.57-1.25 L Specimen slight ly (BEAKER) (test hemolyzed code = 358) GLUCOSE RANDOM 65 mg/dL 70-105 L (BEAKER) (test code = 652) CALCIUM (BEAKER) 8.0 mg/dL 8.4-10.2 L (test code = 697) EGFR (BEAKER) 126 Interpretatio n of eGFR (test code = mL/min/1.73 values Stage De scription 1092) sq m Result G1 Bridgett l or high >=90 G2 Mildly decreased 60-89 G3a Mildl y to moderately 45-5 9 G3b Moderately to s everely 30-44 G4 Severl y decreased 15-29 G5 Kidne y failure <15Reported eGF R is based on the CKD-EPI 2020 equation that d oes not use a race coefficientEsti mated GFR is not as accur ate as Creatinine Carmen gray in predicting glom erular filtration rate . Estimated GFR is not appl icable for dialysis patien ts Order Entry Technician ID - JOSEAYA LBLOOD GAS, [id number] 05:26:22 Test Item Value Reference Range Interpretation Comments PH VENOUS (BEAKER) (test code = 7.37 7.32-7.42 701) PCO2 VENOUS (BEAKER) (test code = 37 mm Hg 41-51 L 755) PO2 VENOUS (BEAKER) (test code = 49 mm Hg 25-40 H 702) O2 SATURATION VENOUS (BEAKER) 84.4 % 40.0-70.0 H (test code = 703) HCO3 VENOUS (BEAKER) (test code = 21 mmol/L 21-29 705) BASE EXCESS VENOUS (BEAKER) (test -3.6 mmol/L -2.0-3.0 L code = 704) PATIENT TEMPERATURE (BEAKER) 36.9 (test code = 1818) FIO2 (BEAKER) (test code = 1819) 21.0 BASIC METABOLIC [id number] 02:03:34 Test Item Value Reference Range Interpretation Comments SODIUM (BEAKER) 139 meq/L 136-145 (test code = 381) POTASSIUM 3.6 meq/L 3.5-5.1 (BEAKER) (test code = 379) CHLORIDE (BEAKER) 115 meq/L 98-107 H (test code = 382) CO2 (BEAKER) 18 meq/L 22-29 L (test code = 355) BLOOD UREA 4 mg/dL 7-21 L NITROGEN (BEAKER) (test code = 354) CREATININE 0.57 mg/dL 0.57-1.25 (BEAKER) (test code = 358) GLUCOSE RANDOM 92 mg/dL 70-105 (BEAKER) (test code = 652) CALCIUM (BEAKER) 7.9 mg/dL 8.4-10.2 L (test code = 697) EGFR (BEAKER) 125 Interpretatio n of eGFR (test code = mL/min/1.73 values Stage De scription 1092) sq m Result G1 Bridgett l or high >=90 G2 Mildly decreased 60-89 G3a Mild ly to moderately 45-5 9 G3b Moderately to s everely 30-44 G4 Severl y decreased 15-29 G5 Kidney failure <15Reported eGF R is based on the CKD-EPI 2020 equation that d oes not use a race coefficientEsti mated GFR is not as accur ate as Creatinine Carmen isaac in predicting glom erular filtration rate . Estimated GFR is not appl icable for dialysis patien ts Order Entry Technician ID - JUSTEN [id number] 01:45:29 Test Item Value Reference Range Interpretation Comments MAGNESIUM (BEAKER) (test code = 1.7 mg/dL 1.6-2.6 627) Order Entry Technician ID - JUSTEN [id number] 01:45:29 Test Item Value Reference Range Interpretation Comments PHOSPHORUS (BEAKER) (test code = 2.4 mg/dL 2.3-4.7 604) Order Entry Technician ID Gabrielle CAMPUZANO LBLOOD GAS, [id number] 01:25:28 Test Item Value Reference Range Interpretation Comments PH VENOUS (BEAKER) (test code = 7.37 7.32-7.42 701) PCO2 VENOUS (BEAKER) (test code = 36 mm Hg 41-51 L 755) PO2 VENOUS (BEAKER) (test code = 62 mm Hg 25-40 H 702) O2 SATURATION VENOUS (BEAKER) 91.6 % 40.0-70.0 H (test code = 703) HCO3 VENOUS (BEAKER) (test code = 21 mmol/L 21-29 705) BASE EXCESS VENOUS (BEAKER) (test -4.2 mmol/L -2.0-3.0 L code = 704) PATIENT TEMPERATURE (BEAKER) 36.8 (test code = 1818) FIO2 (BEAKER) (test code = 1819) 21.0 POCT-GLUCOSE [id number] 00:15:44 Test Item Value Reference Range Interpretation Comments POC-GLUCOSE METER 100 mg/dL 70-110 : TESTED A T [facility] 6720 (BEAKER) (test code = [place], 1538) 614[address]: Order Entry Technician/Techni yessi ID = [id number] for FELICE RICHMOND POCT-GLUCOSE [id number] 23:15:21 Test Item Value Reference Range Interpretation Comments POC-GLUCOSE METER 101 mg/dL 70-110 : TESTED A T [facility] 6720 (BEAKER) (test code = [facility]ALIE [place] [facility], 1538) 21499: Order Entry Technician/Techni yessi ID = [id number] for Al i, Poppy POCT-GLUCOSE [id number] 22:24:36 Test Item Value Reference Range Interpretation Comments POC-GLUCOSE METER 73 mg/dL 70-110 : TESTED A T [facility] 6720 (BEAKER) (test code = NATALIE [place], 1538) 97212: Order Entry Technician/Techni yessi ID = [id number] for FELICE SANTOS BASIC METABOLIC [id number] 22:00:23 Test Item Value Reference Range Interpretation Comments SODIUM (BEAKER) 140 meq/L 136-145 (test code = 381) POTASSIUM 3.7 meq/L 3.5-5.1 (BEAKER) (test code = 379) CHLORIDE (BEAKER) 116 meq/L 98-107 H (test code = 382) CO2 (BEAKER) 18 meq/L 22-29 L (test code = 355) BLOOD UREA 5 mg/dL 7-21 L NITROGEN (BEAKER) (test code = 354) CREATININE 0.64 mg/dL 0.57-1.25 (BEAKER) (test code = 358) GLUCOSE RANDOM 91 mg/dL 70-105 (BEAKER) (test code = 652) CALCIUM (BEAKER) 8.1 mg/dL 8.4-10.2 L (test code = 697) EGFR (BEAKER) 121 Interpretatio n of eGFR (test code = mL/min/1.73 values Stage De scription 1092) sq m Result G1 Bridgett l or high >=90 G2 Mildly decreased 60-89 G3a Mildl y to moderately 45-5 9 G3b Moderately to s everely 30-44 G4 Severl y decreased 15-29 G5 Kidney failure <15Reported eGF R is based on the CKD-EPI 2020 equation that d oes not use a race coefficientEsti mated GFR is not as accur ate as Creatinine Carmen isaac in predicting glom erular filtration rate . Estimated GFR is not appl icable for dialysis patien ts Order Entry Technician ID - [id number] 22:00:23 Test Item Value Reference Range Interpretation Comments MAGNESIUM (BEAKER) (test code = 1.8 mg/dL 1.6-2.6 627) Order Entry Technician ID - [id number] 22:00:23 Test Item Value Reference Range Interpretation Comments PHOSPHORUS (BEAKER) (test code = 2.8 mg/dL 2.3-4.7 604) Order Entry Technician ID - AZBLOOD GAS, [id number] 21:35:45 Test Item Value Reference Range Interpretation Comments PH VENOUS (BEAKER) (test code = 7.38 7.32-7.42 701) PCO2 VENOUS (BEAKER) (test code = 34 mm Hg 41-51 L 755) PO2 VENOUS (BEAKER) (test code = 68 mm Hg 25-40 H 702) O2 SATURATION VENOUS (BEAKER) 93.7 % 40.0-70.0 H (test code = 703) HCO3 VENOUS (BEAKER) (test code = 20 mmol/L 21-29 L 705) BASE EXCESS VENOUS (BEAKER) (test -4.9 mmol/L -2.0-3.0 L code = 704) PATIENT TEMPERATURE (BEAKER) 36.7 (test code = 1818) FIO2 (BEAKER) (test code = 1819) 21.0 POCT-GLUCOSE [id number] 21:26:21 Test Item Value Reference Range Interpretation Comments POC-GLUCOSE METER 92 mg/dL 70-110 : TESTED A T [facility] 6720 (BEAKER) (test code = [facility], 1538) 37742: Order Entry Technician/Techni yessi ID = [id number] for Poppy Tobin POCT-GLUCOSE [id number] 16:51:00 Test Item Value Reference Range Interpretation Comments POC-GLUCOSE METER 176 mg/dL 70-110 H : TESTED A T [facility] 6720 (BEAKER) (test code = [facility], 1538) 90491: Order Entry Technician/Techni yessi ID = [id number] for Roxyjose maria Daisy POCT-GLUCOSE [id number] 15:50:57 Test Item Value Reference Range Interpretation Comments POC-GLUCOSE METER 174 mg/dL 70-110 H : TESTED A T [facility] 6720 (BEAKER) (test code = [place], 1538) [address]: Order Entry Technician/Techni yessi ID = [id number] for SERGIO ROSAS BASIC METABOLIC [id number] 14:41:08 Test Item Value Reference Range Interpretation Comments SODIUM (BEAKER) 140 meq/L 136-145 (test code = 381) POTASSIUM 3.6 meq/L 3.5-5.1 (BEAKER) (test code = 379) CHLORIDE (BEAKER) 119 meq/L 98-107 H (test code = 382) CO2 (BEAKER) 16 meq/L 22-29 L (test code = 355) BLOOD UREA 6 mg/dL 7-21 L NITROGEN (BEAKER) (test code = 354) CREATININE 0.73 mg/dL 0.57-1.25 (BEAKER) (test code = 358) GLUCOSE RANDOM 182 mg/dL 70-105 H (BEAKER) (test code = 652) CALCIUM (BEAKER) 7.3 mg/dL 8.4-10.2 L (test code = 697) EGFR (BEAKER) 113 Interpretatio n of eGFR (test code = mL/min/1.73 values Stage D escription 1092) sq m Result G1 Bridgett l or high >=90 G2 Mildly decreased 60-89 G3a Mildl y to moderately 45-5 9 G3b Moderately to s everely 30-44 G4 Severl y decreased 15-29 G5 Kidney failure <15Reported eGF R is based on the CKD-EPI 1 equation that d oes not use a race coefficientEsti mated GFR is not as accur ate as Creatinine Carmen gray in predicting glom erular filtration rate . Estimated GFR is not appl icable for dialysis patien ts Order Entry Technician ID - [id number] 14:39:22 Test Item Value Reference Range Interpretation Comments MAGNESIUM (BEAKER) (test code = 2.1 mg/dL 1.6-2.6 627) Order Entry Technician ID - [id number] 14:39:22 Test Item Value Reference Range Interpretation Comments PHOSPHORUS (BEAKER) (test code = 1.8 mg/dL 2.3-4.7 L 604) Order Entry Technician ID - MARCOPOCT-GLUCOSE [id number] 14:36:37 Test Item Value Reference Range Interpretation Comments POC-GLUCOSE METER 171 mg/dL 70-110 H : TESTED A T [facility] 6720 (BEAKER) (test code = [facility], 1538) 37989: Order Entry Technician/Techni yessi ID = [id number] for IB RAHIM, [place] POCT-GLUCOSE [id number] 13:31:59 Test Item Value Reference Range Interpretation Comments POC-GLUCOSE METER 127 mg/dL 70-110 H : TESTED A T [facility] 6720 (BEAKER) (test code = [facility], 1538) 55139: Order Entry Technician/Techni yessi ID = [id number] for IB RAHIM, [place] POCT-GLUCOSE [id number] 12:55:21 Test Item Value Reference Range Interpretation Comments POC-GLUCOSE METER 165 mg/dL 70-110 H : TESTED A T [facility] 6720 (BEAKER) (test code = [facility], 1538) 73963: Order Entry Technician/Techni yessi ID = [id number] for Daisy Pascal BLOOD GAS, [id number] 12:48:29 Test Item Value Reference Range Interpretation Comments PH VENOUS (BEAKER) (test code = 7.28 7.32-7.42 L 701) PCO2 VENOUS (BEAKER) (test code = 36 mm Hg 41-51 L 755) PO2 VENOUS (BEAKER) (test code = 110 mm Hg 25-40 H 702) O2 SATURATION VENOUS (BEAKER) 97.5 % 40.0-70.0 H (test code = 703) HCO3 VENOUS (BEAKER) (test code = 17 mmol/L 21-29 L 705) BASE EXCESS VENOUS (BEAKER) (test -9.5 mmol/L -2.0-3.0 L code = 704) PATIENT TEMPERATURE (BEAKER) 37.0 (test code = 1818) FIO2 (BEAKER) (test code = 1819) 21.0 POCT-GLUCOSE [id number] 12:33:46 Test Item Value Reference Range Interpretation Comments POC-GLUCOSE METER 174 mg/dL 70-110 H : TESTED A T [facility] 6720 (BEAKER) (test code = [facility], 1538) 51870: Order Entry Technician/Techni yessi ID = [id number] for SERGIO ROSAS POCT-GLUCOSE [id number] 10:48:24 Test Item Value Reference Range Interpretation Comments POC-GLUCOSE METER 189 mg/dL 70-110 H : TESTED A T [facility] 6720 (BEAKER) (test code = [facility], 1538) 13158: Order Entry Technician/Techni yessi ID = [id number] for SERGIO ROSAS HEMOGLOBIN [id number] 10:33:22 Test Item Value Reference Range Interpretation Comments HEMOGLOBIN A1C 9.9 % See_Comment H [Automated m essage] ELECTROPHORESIS (BEAKER) The system which (test code = 3811) generated this result transmitted ref erence range: <=5.6%. The reference range was not used to int erpret this result as normal/abnormal . "The A1c is measured using a NGSP-certified method. HbA1c value equal to or greater than 6.5% as thediagnosis cutoff for diabetes. An HbA1c value of 5.7- 6.4% indicates increased risk for diabetes (prediabetes)."Order Entry Technician ID - ADMPOCT- GLUCOSE [id number] 09:37:04 Test Item Value Reference Range Interpretation Comments POC-GLUCOSE METER 211 mg/dL 70-110 H : TESTED A T [facility] 6720 (BEAKER) (test code = [facility], 153) 070[address]: Order Entry Technician/Techni yessi ID = [id number] for SERGIO ROSAS [id number] 09:19:13 Test Item Value Reference Range Interpretation Comments PHOSPHORUS (BEAKER) (test code = 1.2 mg/dL 2.3-4.7 LL 604) Order Entry Technician ID - CHARLIE GBASIC METABOLIC [id number] 09:08:43 Test Item Value Reference Range Interpretation Comments SODIUM (BEAKER) 140 meq/L 136-145 (test code = 381) POTASSIUM 3.6 meq/L 3.5-5.1 (BEAKER) (test code = 379) CHLORIDE (BEAKER) 118 meq/L 98-107 H (test code = 382) CO2 (BEAKER) 14 meq/L 22-29 L (test code = 355) BLOOD UREA 7 mg/dL 7-21 NITROGEN (BEAKER) (test code = 354) CREATININE 0.77 mg/dL 0.57-1.25 (BEAKER) (test code = 358) GLUCOSE RANDOM 246 mg/dL 70-105 H (BEAKER) (test code = 652) CALCIUM (BEAKER) 7.4 mg/dL 8.4-10.2 L (test code = 697) EGFR (BEAKER) 106 Interpretatio n of eGFR (test code = mL/min/1.73 values Stage De scription 1092) sq m Result G1 Bridgett l or high >=90 G2 Mildly decreased 60-89 G3a Mildl y to moderately 45-5 9 G3b Moderately to s everely 30-44 G4 Severl y decreased 15-29 G5 Kidney failure <15Reported eGF R is based on the CKD-EPI 2020 equation that d oes not use a race coefficientEsti mated GFR is not as accur ate as Creatinine Carmen isaac in predicting glom erular filtration rate . Estimated GFR is not appl icable for dialysis patien ts Order Entry Technician ID - CHARLIE [id number] 09:05:45 Test Item Value Reference Range Interpretation Comments MAGNESIUM (BEAKER) (test code = 2.1 mg/dL 1.6-2.6 627) Order Entry Technician ID - CHARLIE GPOCT-GLUCOSE [id number] 08:48:23 Test Item Value Reference Range Interpretation Comments POC-GLUCOSE METER 233 mg/dL 70-110 H : TESTED A T [facility] 6720 (BEAKER) (test code = [facility], 1538) 62678: Order Entry Technician/Techni yessi ID = [id number] for Roxyjensenlalita Daisy BLOOD GAS, [id number] 08:38:28 Test Item Value Reference Range Interpretation Comments PH VENOUS (BEAKER) (test code = 7.28 7.32-7.42 L 701) PCO2 VENOUS (BEAKER) (test code 28 mm Hg 41-51 L = 755) PO2 VENOUS (BEAKER) (test code = 78 mm Hg 25-40 H 702) O2 SATURATION VENOUS (BEAKER) 94.2 % 40.0-70.0 H (test code = 703) HCO3 VENOUS (BEAKER) (test code 13 mmol/L 21-29 L = 705) BASE EXCESS VENOUS (BEAKER) -12.8 mmol/L -2.0-3.0 L (test code = 704) PATIENT TEMPERATURE (BEAKER) 37.0 (test code = 1818) FIO2 (BEAKER) (test code = 1819) 21.0 Screen, [id number] 08:10:39 Test Item Value Reference Range Interpretation Comments Preg Test, Ur (test code = 2112-1) Negative Negative Lab Interpretation (test code = Normal 93087-8) [facility] [id number] 08:10:39 Test Item Value Reference Range Interpretation Comments TEST URINE (BEAKER) (test Negative Negative code = 583) POCT-GLUCOSE [id number] 07:44:37 Test Item Value Reference Range Interpretation Comments POC-GLUCOSE METER 222 mg/dL 70-110 H : TESTED A T [facility] 6720 (BEAKER) (test code = [facility], 1538) 26146: Order Entry Technician/Techni yessi ID = [id number] for IB RAHIM, [place] POCT-GLUCOSE [id number] 06:44:09 Test Item Value Reference Range Interpretation Comments POC-GLUCOSE METER 245 mg/dL 70-110 H : TESTED A T [facility] 6720 (BEAKER) (test code = [facility], 1538) 67971: Order Entry Technician/Techni yessi ID = [id number] for MANOJ MEDINASADIN TSH/FREE T4 IF [id number] 06:40:23 Test Item Value Reference Range Interpretation Comments THYROID STIMULATING HORMONE 0.958 uIU/mL 0.350-4.940 (BEAKER) (test code = 772) Order Entry Technician ID - CHARLIE GBASIC METABOLIC [id number] 06:01:56 Test Item Value Reference Range Interpretation Comments SODIUM (BEAKER) 138 meq/L 136-145 (test code = 381) POTASSIUM 3.7 meq/L 3.5-5.1 (BEAKER) (test code = 379) CHLORIDE (BEAKER) 117 meq/L 98-107 H (test code = 382) CO2 (BEAKER) 7 meq/L 22-29 LL (test code = 355) BLOOD UREA 9 mg/dL 7-21 NITROGEN (BEAKER) (test code = 354) CREATININE 0.82 mg/dL 0.57-1.25 (ROGERAKER) (test code = 358) GLUCOSE RANDOM 198 mg/dL 70-105 H (MARILYNN) (test code = 652) CALCIUM (MARILYNN) 7.7 mg/dL 8.4-10.2 L (test code = 697) EGFR (MARILYNN) 98 Interpretatio n of eGFR (test code = mL/min/1.73 values Stage De scription 1092) sq m Result G1 Bridgett l or high >=90 G2 Mildly decreased 60-89 G3a Mildl y to moderately 45-5 9 G3b Moderately to s everely 30-44 G4 Severl y decreased 15-29 G5 Kidney failure <15Reported eGF R is based on the CKD-EPI 2020 equation that d oes not use a race coefficientEsti mated GFR is not as accur ate as Creatinine Carmen isaac in predicting glom erular filtration rate . Estimated GFR is not appl icable for dialysis patien Order Entry Technician ID - CHARLIE GSARS-CoV2/Influenza/RSV [id number] 05:53:01 Test Item Value Reference Interpretation Comments Range SARS-COV2/RT-PCR Negative Negative The SARS-Co V-2 (test code = target nucleic 55853-2) acids are not detected in [facility] s specimen. Negat alexys results do not preclude SARS-C oV-2 infection and should not be u sed as the sole bas is for patient management decisions. Nega tive results must be combined with clinical observations, patient history , and epidemiolog ical information. A false negative result may occu r if a specimen is improperly collected, transported or handled. This ARS CoV-2 test is a rapid, real-levon e RT-PCR test intended for e qualitative detection of nucleic acid fr om SARS-CoV-2 in a nasopharyngeal swab specimen colle james from individual s suspected of COVID-19 by the ir healthcare provider. Influenza A RT-PCR Positive Negative AA The Flu A target (test code = [place] [address]-8) detected in [facility] s specimen. Influenza B RT-PCR Negative Negative The Flu B target (test code = [place] 68709-4) not detected in this specimen. RSV by RT-PCR (test Negative Negative The RSV target code = 03085-5) nucleic acid s are not detected in this specimen. LARRY (test code = The presence of LARRY) SARS-CoV-2/FLU/RSV viral nucleic acids cannot rule out co-infections or disease caused by other viral or bacterial pathogens. As with any molecular test, mutations within the target regions of the Xpert Xpress SARS-CoV-2/Flu/RSV test could affect primer and/or probe binding resulting in failure to detect the presence of virus or the virus being detected less predictably. False negative results may occur if the virus is present at levels below the analytical limit of detection in this specimen. This Xpert Xpress SARS-CoV-2/Flu/RSV test is a rapid, real-time RT-PCR test intended for the qualitative detection of nucleic acid from Xpert Xpress SARS-CoV-2/Flu/RSV in a nasopharyngeal swab specimen collected from individuals suspected of Xpert Xpress SARS-CoV-2/Flu/RSV by their healthcare provider. Results from [facility] Xpert Xpress SARS-CoV-2/Flu/RSV test should be correlated with the clinical history, epidemiological data, and other data available to the clinician evaluating the patient. Viral nucleic acid may persist in vivo, independent of virus viability. Detection of analyte target(s) does not imply that the corresponding virus(es) are infectious or are the causative agents for clinical symptoms. This test has not been Food and Drug Administration (FDA) cleared or approved and has been authorized by FDA under an Emergency Use Authorization (EUA). This EUA will be effective until the declaration that circumstances exist justifying the authorization of the emergency use of in vitro diagnostic tests for detection and/or diagnosis of COVID-19 is terminated under Section 564(b)(2) of the Act or the EUA is revoked under Section 564(g) of the Act. Fact Sheet for Healthcare Providers:https://w [employer]/Docu ments/Xpert%20Xpres s%20SARS%20CoV-2/Fa ct%20Sheets/302-390 2%31TRQF-EMD-4%20HE ALTHCARE%20PROVIDER S%20FACT%20SHEET.pd f Fact Sheet for Healthcare Patients:https://[employer]/Docum ents/Xpert%20Xpress %20SARS%20Cov-2/Fac t%20Sheets/302-3801 %35TUQS-XRH-4%20PAT IENT%20FACT%20SHEET .pdf Lab Interpretation Abnormal (test code = 73709-5) [facility] [id number] 05:53:01 Test Item Value Reference Range Interpretation Comments SARS-COV2/RT-PCR Negative Negative The SARS-Co V-2 target (test code = nucleic acids a re not 2405445) detected in thi s specimen. Negat alexys results do not preclude SARS-CoV-2 infe ction and should not be u sed as the sole basis for patient management deci sions. Negative result s must be combined with c linical observations, p atient history, and epidemiological information. A false negative result may occur if a specimen i s improperly phyllis ected, transported or handled. This SARS CoV-2 test is a rapid, real-levon e RT-PCR test intended f or the qualitative det ection of nucleic acid fr om SARS-CoV-2 in a nasopharyngeal swab specimen collec james from individuals adrian pected of COVID-19 by the [facility]. INFLUENZA A RT-PCR Positive Negative AA The Flu A target nucleic (test code = acids are detec james in 6595664) this specimen. INFLUENZA B RT-PCR Negative Negative The Flu B target nucleic (test code = acids are not d etected in 3224657) this specimen. RSV RT-PCR (test Negative Negative The RSV tar get nucleic code = 5554597) acids are no t detected in this specimen. The presence of SARS-CoV-2/FLU/RSV viral nucleic acids cannot rule out co- infections or disease caused by other viral or bacterial pathogens. As with any molecular test, mutations within the target regions of the Xpert Xpress SARS-CoV-2/Flu/RSV test could affect primer and/or probe binding resulting in failure to detect the presence of virus or the virus being detected less predictably. False negative results may occur if the virus is present at levels below the analytical limit of detection in thisspecimen.This [facility] SARS-CoV-2/Flu/RSV test is a rapid, real-time RT-PCR test intended for the qualitative detection of nucleic acid from [facility] SARS-CoV-2/Flu/RSV in a nasopharyngeal swabspecimen collected from individuals suspected of [facility] SARS-CoV-2/Flu/RSV by their healthcareprovider. Results from [facility] SARS-CoV-2/Flu/RSV test should be correlated with the clinical history, epidemiological data, and other data available to the clinician evaluating the patient. Viral nucleic acid may persist in vivo, independent of virus viability. Detection of analyte target(s)does not imply that the corresponding virus(es) are infectious or are the causative agents for clinical symptoms.This test has not been Food and Drug Administration (FDA) cleared or approved and has been authorized by FDA under an Emergency Use Authorization (EUA). This EUA will be effective until thedeclaration that circumstances exist justifying the authorization of the emergency use of in vitro diagnostic tests for detection and/or diagnosis of COVID-19 is terminated under Section 564(b)(2) of the Act or the EUA is revoked under Section 564(g) of the Act.Fact Sheet for Healthcare Providers:https ://www.[employer]/Documents/Xpert%20Xpress%20SARS%20CoV-2/Fact%20Sheets/302-390 2%67BBPS-IPN-2%20HEALTHCARE%20PROVIDERS%20FACT%20SHEET.pdfFact Sheet for Healthcare Patients:https://www.[employer]/Docum ents/Xpert%20Xpress%20SARS%20Cov-2/Fact%20Sheets/302-3801%66QFZY-VLD-3%20PATIENT %20FACT%20SHEET.pdfPOCT-GLUCOSE [id number] 05:47:16 Test Item Value Reference Range Interpretation Comments POC-GLUCOSE METER 199 mg/dL 70-110 H : TESTED A T [facility] 6720 (BEAKER) (test code = NATALIE Gayle [place], 1538) [address]: Order Entry Technician/Techni yessi ID = [id number] for Elissa Lewis [id number] 05:44:41 Test Item Value Reference Range Interpretation Comments MAGNESIUM (BEAKER) (test code = 1.5 mg/dL 1.6-2.6 L 627) Order Entry Technician ID - CHARLIE [id number] 05:44:41 Test Item Value Reference Range Interpretation Comments PHOSPHORUS (BEAKER) (test code = 1.7 mg/dL 2.3-4.7 L 604) Order Entry Technician ID - CHARLIE GLACTIC ACID, [id number] 05:40:57 Test Item Value Reference Range Interpretation Comments LACTATE BLOOD VENOUS (2) (BEAKER) 0.86 mmol/L 0.50-2.20 (test code = 8522) Order Entry Technician ID - CHARLIE GCBC W/PLT COUNT & AUTO [id number] 05:35:44 Test Item Value Reference Range Interpretation Comments WHITE BLOOD CELL COUNT (BEAKER) 13.6 K/ L 3.5-10.5 H (test code = 775) RED BLOOD CELL COUNT (BEAKER) 4.10 M/ L 3.93-5.22 (test code = 761) HEMOGLOBIN (BEAKER) (test code = 11.8 GM/DL 11.2-15.7 410) HEMATOCRIT (BEAKER) (test code = 36.3 % 34.1-44.9 411) MEAN CORPUSCULAR VOLUME (BEAKER) 89 fL 79-95 (test code = 753) MEAN CORPUSCULAR HEMOGLOBIN 28.8 pg 25.6-32.2 (BEAKER) (test code = 751) MEAN CORPUSCULAR HEMOGLOBIN CONC 32.5 GM/DL 32.2-35.5 (BEAKER) (test code = 752) RED CELL DISTRIBUTION WIDTH 12.7 % 11.7-14.4 (BEAKER) (test code = 412) PLATELET COUNT (BEAKER) (test 279 K/CU MM 150-450 code = 756) MEAN PLATELET VOLUME (BEAKER) 10.3 fL 9.4-12.3 (test code = 754) NUCLEATED RED BLOOD CELLS 0 /100 WBC 0-0 (BEAKER) (test code = 413) NEUTROPHILS RELATIVE PERCENT 76 % (BEAKER) (test code = 429) LYMPHOCYTES RELATIVE PERCENT 12 % (BEAKER) (test code = 430) MONOCYTES RELATIVE PERCENT 10 % (BEAKER) (test code = 431) EOSINOPHILS RELATIVE PERCENT 0 % (BEAKER) (test code = 432) BASOPHILS RELATIVE PERCENT 0 % (BEAKER) (test code = 437) NEUTROPHILS ABSOLUTE COUNT 10.39 K/ L 1.56-6.13 H (BEAKER) (test code = 670) LYMPHOCYTES ABSOLUTE COUNT 1.69 K/ L 1.18-3.74 (BEAKER) (test code = 414) MONOCYTES ABSOLUTE COUNT (BEAKER) 1.42 K/ L 0.24-0.36 H (test code = 415) EOSINOPHILS ABSOLUTE COUNT 0.01 K/ L 0.04-0.36 L (BEAKER) (test code = 416) BASOPHILS ABSOLUTE COUNT (BEAKER) 0.06 K/ L 0.01-0.08 (test code = 417) IMMATURE GRANULOCYTES-RELATIVE 0.30 % 0.00-1.00 PERCENT (BEAKER) (test code = 2801) HIGH SENSITIVITY TROPONIN [id number] 05:26:53 Test Item Value Reference Range Interpretation Comments HIGH SENSITIVITY < pg/ml See_Comment [Automated message] TROPONIN I (test code = The system which [id number]) generated this result transmitted ref erence range: <=17. Th e reference range was not used to interpr et this result as normal/abnormal . Order Entry Technician ID - CHARLIE GThe FOOD BROKER STAT High Sensitivity Troponin-I results should be used in conjunction with other diagnostic information such as ECG, clinical observations and information, and patient symptoms to aid in the diagnosis of MO.BLOOD GAS, [id number] 05:11:35 Test Item Value Reference Range Interpretation Comments PH VENOUS (BEAKER) (test code = 7.16 7.32-7.42 LL 701) PCO2 VENOUS (BEAKER) (test code 21 mm Hg 41-51 L = 755) PO2 VENOUS (BEAKER) (test code = 95 mm Hg 25-40 H 702) O2 SATURATION VENOUS (BEAKER) 95.5 % 40.0-70.0 H (test code = 703) HCO3 VENOUS (BEAKER) (test code 7 mmol/L 21-29 LL = 705) BASE EXCESS VENOUS (BEAKER) -19.3 mmol/L -2.0-3.0 L (test code = 704) PATIENT TEMPERATURE (BEAKER) 37.0 (test code = 1818) FIO2 (BEAKER) (test code = 1819) 21.0 POCT-GLUCOSE [id number] 04:35:37 Test Item Value Reference Range Interpretation Comments POC-GLUCOSE METER 195 mg/dL 70-110 H : TESTED A T [facility] 6720 (BEAKER) (test code = [facility], 153) [address]: Order Entry Technician/Techni yessi ID = [id number] for MANOJ MEDINA FELICE POCT-GLUCOSE [id number] 03:28:15 Test Item Value Reference Range Interpretation Comments POC-GLUCOSE METER 201 mg/dL 70-110 H : TESTED A T [facility] 6720 ([facility]) (test code = [facility], 153) [address]: Order Entry Technician/Techni yessi ID = [id number] for Ez enwugo, Homa POCT-GLUCOSE [id number] 01:43:58 Test Item Value Reference Range Interpretation Comments POC-GLUCOSE METER 184 mg/dL 70-110 H : TESTED A T [facility] 6720 ([facility]) (test code = [facility], 153) [address]: Order Entry Technician/Techni yessi ID = [id number] for Cindy Campos
[2022-10-22] MEDS ORDERED: NA CHLORIDE 0.9% 1,000 ML ONE (20:30)
[2022-10-22] MEDS ORDERED: ONDANSETRON 4 MG/2 ML VIAL ONE (20:30)
[2022-10-22] MEDS ORDERED: FAMOTIDINE 20 MG/2 ML VIAL IV ONE (20:30)
[2022-10-22 21:11] LABS: Absolute Lymphocytes (CBC) 1.5 K/uL (0.7-4.9); Hematocrit 39.5 % (36.0-45.0); Lymphocytes % 19.6 % (15.3-44.8); MCV 86.4 fL (80-100); MPV 8.6 fL (7.6-11.3); RBC Red Blood Cell Count 4.58 M/uL (3.86-4.86)
[2022-10-22 21:22] LABS: Urine Bacteria <20 /HPF (<20); Urine Mucus Slight /HPF (None Seen)
[2022-10-22 21:35] LABS: ALT/SGPT 16 U/L (13-56); Albumin 3.7 g/dL (3.4-5.0); Alkaline Phosphatase 62 U/L (45-117); BUN Blood Urea Nitrogen 14 mg/dL (7-18); Bicarbonate 23 mmol/L (21-32); Bilirubin Total 0.8 mg/dL (0.2-1.0); Glomerular Filtration Rate 120 ml/min (=/>90); Glucose Level 212 mg/dL (74-106); Lipase 27 U/L (13-75); Potassium 4.3 mmol/L (3.5-5.1); Protein, Total 7.2 g/dL (6.4-8.2); Sodium Level 135 mmol/L (136-145)
[2022-10-22 21:36] LABS: AST/SGOT 16 U/L (15-37)
[2022-10-22 21:55] LABS: Urine Blood 2+ (Negative); Urine Glucose 2+ (Negative); Urine Protein 1+ (Negative); Urine Specific Gravity 1.015 (1.005-1.030); Urine pH 5.5 (5.0-7.0)
[2022-10-22 22:07] LABS: Urine Specific Gravity/Preg 1.015 (1.005-1.030)
[2022-10-23 03:10] VITALS: TEMP 97.8; O2SAT 100
[2022-10-23 03:12] VITALS: BP 104/67
--- NOTE | 2022-11-05 16:21 | ER ---
Nurse's Notes [facility] Name: Cristina Wheeler Age: 32 yrs Sex: Female : 1990 Arrival Date: 10/22/2022 Time: 19:36 Bed 20 Private MD: Diagnosis: Diabetes mellitus due to underlying condition with hyperglycemia Presentation: 10/22 20:15 Chief complaint: Patient states: PT STATES SHE THINKS SHE IS IN DKA DUE TO DIZZINESS, jj7 INCREASED THIRST AND URINATION. STATES IT HAS BEEN GOING ON FOR 1 WKS. TOOK BLOOD SUGAR AT 6:20P AND IT WAS 510. TOOK 14 UNITS OF INSULIN. Coronavirus screen: At this time, the client does not indicate any symptoms associated with coronavirus-19. Ebola Screen: No symptoms or risks identified at this time. Initial Sepsis Screen: Does the patient meet any 2 criteria? HR > 90 bpm. No. Patient's initial sepsis screen is negative. Does the patient have a suspected source of infection? No. Patient's initial sepsis screen is negative. Risk Assessment: Do you want to hurt yourself or someone else? Patient reports no desire to harm self or others. Onset of symptoms was October 16, 2022. 20:15 Method Of Arrival: Ambulatory j7 20:15 Acuity: KM 3 jj7 Triage Assessment: 20:32 General: Appears in no apparent distress. comfortable, slender, Behavior is calm. Pain: jj7 Denies pain. Neuro: Reports dizziness, since YESTERDAY. GI: Reports INCREASED THIRST. : Reports urinary frequency, since X1 WK. 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 ALLERGIC ALLERGIC. - Social history:: Smoking status: Reported history of juuling and/or vaping. Patient uses alcohol, occasionally. Screenin:23 [facility] [place] ED Fall Risk Assessment (Adult) History of falling in the last 3 months, jj7 including since admission No falls in past 3 months (0 pts) Confusion or Disorientation No (0 pts) Intoxicated or Sedated No (0 pts) Impaired Gait No (0 pts) Mobility Assist Device Used No (0 pt) Altered Elimination No (0 pt) Score/Fall Risk Level 0 - 2 = Low Risk. Abuse screen: Denies threats or abuse. Nutritional screening: No deficits noted. Tuberculosis screening: No symptoms or risk factors identified. Assessment: 20:23 Reassessment: SEE TRIAGE ASSESSMENT. jj7 Vital Signs: 20:15 BP 108 / 79; Pulse 108; Resp 20; Temp 97.8(O); Pulse Ox 100% ; Weight 53.98 kg; Height jj7 4 ft. 10 in. ; Pain 0/10; 21:37 BP 106 / 74; Pulse 93; Resp 17; Pulse Ox 100% ; jj7 22:14 BP 104 / 67; Pulse 91; Resp 17; Pulse Ox 100% ; Pain 0/10; jj7 20:15 Body Mass Index 24.87 (53.98 kg, 147.32 cm) jj7 20:15 Pain Scale: Adult jj7 22:14 Pain Scale: Adult jj7 ED Course: 19:36 Patient arrived in ED. ja2 19:40 Niko Murray PA is PHCP. cp 19:40 Jesus Antunez MD is Attending Physician. cp 19:59 Attending Physician role handed off by Jesus Antunez MD tam 19:59 Niko Leon MD is Attending Physician. tam 20:13 Sharee Avina RN is Primary Nurse. jj7 20:23 Patient has correct armband on for positive identification. Bed in low position. Call j7 light in reach. Adult w/ patient. Warm blanket given. 20:23 Inserted saline lock: 24 gauge in left hand, using aseptic technique. Blood collected. jj7 20:31 Triage completed. jj7 20:32 Arm band placed on right wrist. jj7 21:24 ACCU CHECK 199. jj7 22:13 No provider procedures requiring assistance completed. IV discontinued, intact, jj7 bleeding controlled, No redness/swelling at site. Pressure dressing applied. Administered Medications: 21:05 Drug: NS 0.9% IV 1000 ml Route: IV; Rate: 1 bolus; Site: left hand; jj7 22:03 Follow up: IV Status: Completed infusion jj7 21:05 Drug: Famotidine IVP 20 mg Route: IVP; Site: left hand; jj7 22:15 Follow up: Response: No adverse reaction jj7 21:05 Drug: Ondansetron IVP 4 mg Route: IVP; Site: left hand; jj7 22:16 Follow up: Response: No adverse reaction jj7 Medication: 20:23 VIS not applicable for this client. jj7 Outcome: 22:02 Discharge ordered by . mushtaq 22:13 Discharged to home ambulatory, with significant other. jj7 22:13 Condition: improved 22:13 Discharge instructions given to patient, significant other, Instructed on discharge instructions, follow up and referral plans. medication usage, Demonstrated understanding of instructions, follow-up care, medications, Prescriptions given X 1. 22:15 Patient left the ED. jj7 Signatures: Niko Leon MD MD cha Page, Corey, PA PA Estefani Waldrop Juwairiyah, RN RN jj7 Corrections: (The following items were deleted from the chart) :23 20:23 Inserted saline lock: 24 gauge in left hand, using aseptic technique. jj7 jj7
--- NOTE | 2022-11-05 16:21 | EDPHYS ---
Physician Documentation [facility] Name: Cristina Wheeler Age: 32 yrs Sex: Female : 1990 Arrival Date: 10/22/2022 Time: 19:36 Bed 20 Private MD: ED Physician Niko Leon HPI: 10/22 20:10 This 32 yrs old Female presents to ER via Ambulatory with complaints of Poss DKA. cp 20:10 The patient or guardian reports hyperglycemia. cp 20:10 Onset: The symptoms/episode began/occurred 1 week(s) ago. Associated signs and cp symptoms: Pertinent positives: nausea, polyuria, Pertinent negatives: fever, chest pain, abdominal pain, dysuria. 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 ALLERGIC ALLERGIC. - Social history:: Smoking status: Reported history of juuling and/or vaping. Patient uses alcohol, occasionally. ROS: 20:15 Constitutional: Negative for body aches, chills, fever. cp 20:15 Eyes: Negative for injury, pain, redness, and discharge. cp 20:15 ENT: Negative for drainage from ear(s), ear pain, sore throat, difficulty swallowing, difficulty handling secretions. 20:15 Cardiovascular: Negative for chest pain. 20:15 Respiratory: Negative for cough, shortness of breath, wheezing. 20:15 Abdomen/GI: Positive for nausea, Negative for abdominal pain, vomiting, diarrhea, constipation. 20:15 : Positive for urinary frequency, Negative for hematuria, burning with urination. 20:15 Skin: Negative for cellulitis, rash. 20:15 Neuro: Positive for dizziness, Negative for altered mental status, weakness. 20:15 All other systems are negative. Exam: 20:20 Constitutional: The patient appears in no acute distress, alert, awake, non-toxic, well cp developed, well nourished. 20:20 Head/Face: Normocephalic, atraumatic. cp 20:20 Eyes: Periorbital structures: appear normal, Pupils: equal, round, and reactive to light and accomodation, Extraocular movements: intact throughout, Conjunctiva: normal, no exudate, no injection, Sclera: no appreciated abnormality, Lids and lashes: appear normal, bilaterally. 20:20 ENT: External ear(s): are unremarkable, Nose: is normal, Mouth: Lips: moist, Oral mucosa: pink and intact, moist, Posterior pharynx: is normal, airway is patent, no erythema, no exudate. 20:20 Neck: ROM/movement: is normal, is supple, without pain, no range of motions limitations. 20:20 Chest/axilla: Inspection: normal. 20:20 Cardiovascular: Rate: tachycardic, Rhythm: regular. 20:20 Respiratory: the patient does not display signs of respiratory distress, Respirations: normal, no use of accessory muscles, no retractions, labored breathing, is not present, Breath sounds: are clear throughout, no decreased breath sounds, no stridor, no wheezing. 20:20 Abdomen/GI: Inspection: abdomen appears normal, Palpation: abdomen is soft and non-tender, in all quadrants. 20:20 Back: CVA tenderness, is absent. 20:20 Skin: cellulitis, is not appreciated, no rash present. 20:20 Neuro: Orientation: to person, place \T\ time. Mentation: is normal, Motor: moves all fours, strength is normal, Sensation: is normal. Vital Signs: 20:15 BP 108 / 79; Pulse 108; Resp 20; Temp 97.8(O); Pulse Ox 100% ; Weight 53.98 kg; Height jj7 4 ft. 10 in. ; Pain 0/10; 21:37 BP 106 / 74; Pulse 93; Resp 17; Pulse Ox 100% ; jj7 22:14 BP 104 / 67; Pulse 91; Resp 17; Pulse Ox 100% ; Pain 0/10; jj7 20:15 Body Mass Index 24.87 (53.98 kg, 147.32 cm) [facility] 20:15 Pain Scale: Adult jj7 22:14 Pain Scale: Adult jj7 MDM: 20:00 Patient medically screened. tam 20:30 Differential diagnosis: DKA, sepsis, electrolyte abnormality. cp 22:01 Data reviewed: vital signs, nurses notes, lab test result(s). cp 22:01 Consideration of Admission/Observation Escalation of care including cp admission/observation considered. Care significantly affected by the following chronic conditions: Diabetes. Counseling: I had a detailed discussion with the patient and/or guardian regarding: the historical points, exam findings, and any diagnostic results supporting the discharge/admit diagnosis, lab results, to return to the emergency department if symptoms worsen or persist or if there are any questions or concerns that arise at home. Response to treatment: the patient's symptoms have mildly improved after treatment, and as a result, I will discharge patient. 10/22 20:21 Order name: CBC with Diff; Complete Time: 21:26 cp 10/22 20:21 Order name: CMP; Complete Time: 21:41 cp 10/22 21:41 Interpretation: Normal except: NA 135; GLUC 212. 10/22 20:21 Order name: Lipase; Complete Time: 21:41 cp 10/22 20:21 Order name: Urine Microscopic Only; Complete Time: 21:26 cp 10/22 21:27 Interpretation: Normal except: URBC 5-10. cp 10/22 20:21 Order name: Ketone, Serum; Complete Time: 21:41 cp 10/22 21:15 Order name: Glucose, Ancillary Testing; Complete Time: 21:26 EDMS 10/22 21:55 Order name: Urine Dipstick-Ancillary [facility] 10/22 21:56 Order name: Urine --Ancillary (enter results) 10/22 20:07 Order name: Accucheck Blood Glucose; Complete Time: 21:24 cp 10/22 20:21 Order name: IV Saline Lock; Complete Time: 21:24 cp 10/22 20:21 Order name: Labs collected and sent; Complete Time: 21:24 cp 10/22 20:21 Order name: Urine Dipstick-Ancillary (obtain specimen); Complete Time: 21:24 cp 10/22 20:21 Order name: Urine Test (obtain specimen); Complete Time: 21:55 10/22 21:54 Order name: PO challenge cp Administered Medications: 21:05 Drug: NS 0.9% IV 1000 ml Route: IV; Rate: 1 bolus; Site: left hand; jj7 22:03 Follow up: IV Status: Completed infusion jj7 21:05 Drug: Famotidine IVP 20 mg Route: IVP; Site: left hand; jj7 22:15 Follow up: Response: No adverse reaction jj7 21:05 Drug: Ondansetron IVP 4 mg Route: IVP; Site: left hand; jj7 22:16 Follow up: Response: No adverse reaction jj7 Disposition Summary: 10/22/22 22:02 Discharge Ordered Location: Home cp Problem: chronic cp Symptoms: have improved cp Condition: Stable cp Diagnosis - Diabetes mellitus due to underlying condition with hyperglycemia cp Followup: cp - With: Emergency Department - When: As needed - Reason: Worsening of condition Discharge Instructions: - Discharge Summary Sheet cp - Daily Diabetes Mellitus Record cp - Blood Glucose Monitoring, Adult cp - Diabetes Mellitus and Nutrition, Adult cp - Insulin Treatment for Diabetes Mellitus cp - Type 1 Diabetes Mellitus, Self-Care, Adult cp Forms: - Medication Reconciliation Form cp - Thank You Letter cp - Antibiotic Education cp - Prescription Opioid Use cp Prescriptions: - Zofran 4 mg Oral Tablet - take 1 tablet by ORAL route every 12 hours As needed; 20 tablet; Refills: 0, cp Product Selection Permitted Addendum: 10/25/2022 08:42 Co-signature as Attending Physician, Jesus Antunez MD. r n Signatures: Dispatcher [employer] Niko Estrada MD MD cha Nieto, Roman, MD MD rn Niko Murray, PA PA Sharee Leonard RN RN jj7
== END 2022-10-22 22:15 | disposition home or self-care (01) ==
LOC: ER 19:33
DX: E11.65 Type 2 diabetes mellitus with hyperglycemia (principal); Z88.0 Allergy status to penicillin; Z88.2 Allergy status to sulfonamides; Z88.8 Allergy status to other drugs, medicaments and biological substances; Z91.018 Allergy to other foods
CPT/HCPCS: 96361; 85025; 36415; 82010; 81025; 82947; 83690; 80053; 96375; 96374; 99284; J2405; J7030; 81003; 81015

== ENCOUNTER 2022-12-07 20:49 | Emergency (ER) | payer OTHER ==
--- OUTSIDE RECORDS SUMMARY | 2022-12-07 20:54 | XMS REPORT | Continuity of Care Document ---
:1990 Author Organization [facility] t Address [address] [place] [address] Care Team Providers Name Role Phone Provider, Unknown Primary Care Physician Unavailable TYE VANEGAS Attending Clinician Unavailable DUNIA GARCIA Attending Clinician Unavailable DUNIA GARCIA Attending Clinician Unavailable Doctor Unassigned, Klein Attending Clinician Unavailable Neymar Cavazos MD Attending Clinician Yulia Mary MD Attending Clinician Mayo Cisse MD Attending Clinician [phone] Scooby MILLER, Noman Attending Clinician Shaylee MILLER, Poppy Attending Clinician POPPY MANZO Attending Clinician Unavailable NEYMAR CAVAZOS Attending Clinician Unavailable Jeffry Fuchs Attending Clinician Unavailable Linda Yu Attending Clinician Unavailable YULIA MARY Admitting Clinician Unavailable Payers Payer Name Policy Type Policy Number Effective Date Expiration Date S conrado [facility] [id number] 2019 PLUS 00:00:00 MEDICAID [facility] [id number] 2019 00:00:00 Problems Condition Condition Condition Status Onset Resolution Last Treating Co mments Source Name Details Category Date Date Treatment Clinician Date DKA DKA Disease Recurre 2021-[address] [facility] (diabetic (diabetic nce 09-04 Luke s ketoacidos ketoacidos 00:00: Me dical is) is) 00 Center Asthma Asthma Disease Active 2020-08 Overview: Univer s 2-06 Formattin ity of 00:00: g of this [place] 00 note Medical might be Branch different from the original. Last Assessmen t & Plan: Formattin g of this note might be different from the original. Stable.Montez aguilar currently vapes. She states she is trying to cut back.Ment ions that she no longer smokes marijuana or smoke cigarette s. 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 Allergies, Adverse Reactions, Alerts Allergy Allergy Status [...] Medical Antibiot reaction 00 Center ics) s Sulfa Propensi Active Unknown - Unive rs (Sulfona ty to See comments 04-15 it y of mide adverse 00:00: [place] Antibiot reaction 00 Medica l ics) s Branch SULFA Drug Active Unknown-Cmnt Univ ers (SULFONA Class 04-15 ity of MIDE 00:00: [place] ANTIBIOT 00 Medical ICS) Branch Penicill DA Active [facility] ins 03-21 [place]: d [facility] Sulfa DA Active [facility] (Sulfona 03-21 [place] mide 00:00: d Antibiot 00 Medical ics) Center ibuprofe DA Active [facility] n 03-21 [place] 00:00: d 00 [facility] [place] sulfamet DA Active SV [facility] hoxazole 03-21 [place] 00:00: d [facility] [place] trimetho DA Active [facility] prim 03-21 [place] 00:00: d 00 [facility] [place] penicill DA Active U [facility] in G 03-21 [place] 00:00: d 00 [facility] [place] shellfis DA Active [facility] h 03-21 [place] derived 00:00: d 00 [facility] spinach DA Active [facility] 03-21 [place] 00:00: d 00 [facility] Ibuprofe Propensi Active Method i n ty to 11-15 st adverse 00:00: Hospita reaction 00 l s to drug Sulfa Propensi Active Methodi (Sulfona ty to 11-15 st mide adverse 00:00: Hospita Antibiot reaction 00 l ics) s to drug MUSHROOM DA Active [facility] S 10-09 [place] 00:00: d 00 [facility] PENICILL Drug Active Rash Univers INS Class 5-06 ity of 00:00: [place] 00 [facility] Penicill Propensi Active Rash Univer s ins ty to 12-18 ity of adverse 00:00: [place] reaction Medical Branch Social History Social Habit Start Date Stop Date Quantity Comments Source Sexual orientation [facility] Exposure to 2022-11-27 2022-12-07 Not sure [facility] SARS-CoV-2 (event) 00:00:00 09:06:00 [facility] Tobacco use and 2022-12-07 2022-12-07 Smokeless tobacco Un iversity of exposure 00:00:00 00:00:00 non-user [facility] Alcohol intake 2017-11-15 2017-11-15 Current drinker [facility] 00:00:00 00:00:00 of alcohol Hospital (finding) Alcohol Comment 2017-11-15 2017-11-15 occasional [facility] 00:00:00 00:00:00 Hospital Sex Assigned At [address] [facility] k[facility] 00:00:00 00:00:00 Medical [place] Smoking Status Start Date Stop Date Source Never smoked tobacco [facility] Medications Ordered Filled Start Stop Current Ordering Indication Dosage Frequency Signature Comments Components Source Medication Medication Date Date Medication? Clinician (SIG) Name Name melatonin 5 Yes 5mg Take 5 mg U nivers mg Chew 4-25 by mouth. ity of 09:28: [address] Branch melatonin 5 Yes 5mg Take 5 mg U nivers mg Chew 4-25 by mouth. ity of 09:28: [place] [address] Medical Branch HUMALOG Yes Univers KWIKPEN 3-17 ity of INSULIN 100 00:00: [place] unit/mL 00 Medical injection Branch HUMALOG 0 Yes Univers KWIKPEN 3-17 ity of INSULIN 100 00:00: [place] unit/mL 00 Medical injection Branch HUMALOG Yes Univers KWIKPEN 3-17 ity of INSULIN 100 00:00: [place] unit/mL 00 Medical injection Branch fluticasone Yes INSTILL Uni vers propionate 1-27 ONE (1) ity of 50 00:00: SPRAY INTO [place] mcg/actuati 00 EACH Medical on nasal NOSTRIL Branch spray ONCE DAILY FOR 10 DAYS. fluticasone Yes INSTILL Uni vers propionate -27 ONE (1) ity of 50 00:00: SPRAY INTO [place] mcg/actuati 00 EACH Medical on nasal NOSTRIL Branch spray ONCE DAILY FOR 10 DAYS. fluticasone 0 Yes INSTILL Uni vers propionate -27 ONE (1) ity of 50 00:00: SPRAY INTO [place] mcg/actuati 00 EACH Medical on nasal NOSTRIL Branch spray ONCE DAILY FOR 10 DAYS. acetaminoph 2021-08 No 650mg Take [address] [facility] 09[facility]0618 [facility] (TYLENOL) 00:00: 23:59 (650 mg Medi cierra 325 MG 00 :00 total) by Center tablet mouth every 6 (six) hours as needed for up to 360 days. acetaminoph 2021-08 No 650mg Take [address] [...] for Cough for up to 7 days. benzonatate 2021-08 No 100mg Take [address] (TESSALON) 09-06 capsule [facility] 100 MG 00:00: 23:59 (100 mg Medical capsule 00 :00 total) by Center mouth 3 (three) times daily as needed for Cough for up to 7 days. oseltamivir 2021-08 No 75mg Q.5D Take [address] [facility] (TAMIFLU) 09-06 capsule [facility] 75 MG 00:00: 23:59 (75 mg Medical capsule 00 :00 total) by Center mouth 2 (two) times daily for 3 days. oseltamivir 2021-08- No 75mg Q.5D Take [address] [facility] [address] (TAMIFLU) 09-06 [facility] 75 MG 00:00: 23:59 (75 mg Medical capsule 00 :00 total) by Center mouth 2 (two) times daily for 3 days. insulin Yes 15U inject 15 Unive rs lispro 100 3-15 Units ity of unit/mL 00:00: under the [place] inph 00 skin in [facility] the [place] morning. insulin Yes 15U inject 15 Unive rs lispro 100 3-15 Units ity of unit/mL 00:00: under the [place] inph 00 skin in [facility] the [place] morning. Blood-Gluco 2019- Yes Use to Univ ers se Meter - check ity of (ONETOUCH 00:00: blood [place] VERIO FLEX 00 sugar 3X Medic al METER) Misc daily. Branch DX:E10.69 Blood-Gluco 2019- Yes Use to Univ ers se Meter - check ity of (ONETOUCH 00:00: blood [place] VERIO FLEX 00 sugar 3X Medic al METER) Misc daily. Branch DX:E10.69 Blood-Gluco 2020- Yes Use to Univ ers se Meter - check ity of (ONETOUCH 00:00: blood [place] VERIO FLEX 00 sugar 3X Medic al METER) Misc daily. Branch DX:E10.69 Blood-Gluco 2020- Yes Use to Univ ers se Meter check ity of (ONETOUCH 00:00: blood [place] VERIO FLEX 00 sugar 3X Medic al METER) Misc daily. Branch DX:E10.69 lancets 2019-08 Yes Use to Univers (ONE TOUCH 08-23 check ity of DELICA) 33 00:00: blood [place] gauge Misc 00 sugar 3X Medic al daily. Branch DX:E10.69 blood sugar 2019-08 Yes Use to Univ ers diagnostic 08-23 check ity of (ONETOUCH 00:00: blood [place] VERIO TEST 00 sugar 3X Medic al STRIPS) daily. Branch strip DX:E10.69 Blood-Gluco 2019-08 Yes Use to Univ ers se Meter 08-23 check ity of (ONETOUCH 00:00: blood [place] VERIO FLEX 00 sugar 3X Medic al METER) Misc daily. Branch DX:E10.69 lancets 2019-08 Yes Use to Univers (ONE TOUCH 08-23 check ity of DELICA) 33 00:00: blood [place] gauge Misc 00 sugar 3X Medic al daily. Branch DX:E10.69 blood sugar 2019-08 Yes Use to Univ ers diagnostic 08-23 check ity of (ONETOUCH 00:00: blood [place] VERIO TEST 00 sugar 3X Medic al STRIPS) daily. Branch strip DX:E10.69 Blood-Gluco 2019-08 Yes Use to Univ ers se Meter 08-23 check ity of (ONETOUCH 00:00: blood [place] VERIO FLEX 00 sugar 3X Medic al METER) Misc daily. Branch DX:E10.69 lancets 2019-08 Yes Use to Univers (ONE TOUCH 08-23 check ity of DELICA) 33 00:00: blood [place] gauge Misc 00 sugar 3X Medic al daily. Branch DX:E10.69 blood sugar 2019-08 Yes Use to Univ ers diagnostic 08-23 check ity of (ONETOUCH 00:00: blood [place] VERIO TEST 00 sugar 3X Medic al STRIPS) daily. Branch strip DX:E10.69 lancets 2019-08- No Use to Univers (ONE TOUCH 08-23 check ity of DELICA) 33 00:00: 00:00 blood [place] gauge Misc 00 :00 sugar 3X Medic al daily. Branch DX:E10.69 blood sugar 2019-08- No Use to Uni vers diagnostic 08-23 check ity of (ONETOUCH 00:00: 00:00 blood [place] VERIO TEST 00 :00 sugar 3X Medic al STRIPS) daily. Branch strip DX:E10.69 lancets 2019-08- No Use to Univers (ONE TOUCH 08-23 check ity of DELICA) 33 00:00: 00:00 blood [place] gauge Misc 00 :00 sugar 3X Medic al daily. Branch DX:E10.69 blood sugar 2019-08- No Use to Uni vers diagnostic 08-23 check ity of (ONETOUCH 00:00: 00:00 blood [place] VERIO TEST 00 :00 sugar 3X Medic al STRIPS) daily. Branch strip DX:E10.69 Diphenhydra 2019-08 Yes Take by Uni vers mine-Acetam - mouth. ity of inophen 10:51: [place] (TYLENOL PM 02 Medical EXTRA Branch STRENGTH) 25-500 mg Tab Diphenhydra 2019-08 Yes Take by Uni vers mine-Acetam 08-20 mouth. ity of inophen 10:51: [place] (TYLENOL PM 02 Medical EXTRA Branch STRENGTH) 25-500 mg Tab Diphenhydra 2019- Yes Take by Uni vers mine-Acetam - mouth. ity of inophen 10:51: [place] (TYLENOL PM 02 Medical EXTRA Branch STRENGTH) 25-500 mg Tab Diphenhydra 2019- Yes Take by Uni vers mine-Acetam -06 mouth. ity of inophen 10:51: [place] (TYLENOL PM 02 Medical EXTRA Branch STRENGTH) 25-500 mg Tab Diphenhydra 2019- Yes Take by Uni vers mine-Acetam - mouth. ity of inophen 10:51: [place] (TYLENOL PM 02 Medical EXTRA Branch STRENGTH) 25-500 mg Tab Diphenhydra 2019- Yes Take by Uni vers mine-Acetam -06 mouth. ity of inophen 10:51: [place] (TYLENOL PM 02 Medical EXTRA Branch STRENGTH) 25-500 mg Tab insulin 2019-08 Yes [id number] 22U inject 22 Univers degludec -06 Units ity of (TRESIBA 00:00: [place] FLEXTOUCH 00 skin Medical U-100) 100 daily. Branch unit/mL (3 mL) InPn insulin 2019-08 Yes [id number] 5U inject Uni vers lispro-aabc -06 5-14 Units it y of 100 unit/mL 00:00: under the [place] InPn 00 skin 3 Medical (three) Branch times daily with meals. gabapentin 2019-08 Yes [id number] 300mg Take 1 Univers 300 mg 1-06 capsule by ity of capsule 00:00: mouth 2 (two) Medical times Branch daily. Insulin 2019-08 Yes [id number] 1{each} inject 1 Univers [place], 1-06 Each under ity o f Disposable, 00:00: the skin [place] (PEN 00 before Medical NEEDLE) 31 meals and Bran ch gauge x at 3/16" Ndle bedtime. Use as directed insulin 2019- Yes [id number] 22U inject 22 Univers degludec 1-06 Units ity of (TRESIBA 00:00: [place] FLEXTOUCH 00 skin Medical U-100) 100 daily. Branch unit/mL (3 mL) InPn insulin 2019-08 Yes [id number] 5U inject Uni vers lispro-aabc 1-06 5-14 Units it y of 100 unit/mL 00:00: under the [place] InPn 00 skin 3 Medical (three) Branch times daily with meals. gabapentin 2019-08 Yes [id number] 300mg Take 1 Univers 300 mg 1-06 capsule by ity of capsule 00:00: mouth 2 (two) Medical times Branch daily. Insulin 2019-08 Yes [id number] 1{each} inject 1 Univers [place], 1-06 Each under ity o f Disposable, 00:00: the skin [place] (PEN 00 before Medical NEEDLE) 31 meals and Bran ch gauge x at 3/16" Ndle bedtime. Use as directed insulin 2019- Yes [id number] 22U inject 22 Univers degludec 1-06 Units ity of (TRESIBA 00:00: [place] the [place] FLEXTOUCH 00 skin Medical U-100) 100 daily. Branch unit/mL (3 mL) InPn insulin 2019- Yes [id number] 5U inject Uni vers lispro-aabc 1-06 5-14 Units it y of 100 unit/mL 00:00: under the [place] InPn 00 skin 3 Medical (three) Branch times daily with meals. gabapentin 2019- Yes [id number] 300mg Take 1 Univers 300 mg 1-06 capsule by ity of capsule 00:00: mouth 2 [place] (two) Medical times Branch daily. Insulin 2019- Yes [id number] 1{each} inject 1 Univers [place], 1-06 Each under ity o f Disposable, 00:00: the skin [place] (PEN 00 before Medical NEEDLE) 31 meals and Bran ch gauge x at 3/16" Ndle bedtime. Use as directed insulin 2019- Yes [id number] 22U inject 22 Univers degludec 1-06 Units ity of (TRESIBA 00:00: [place] the [place] FLEXTOUCH 00 skin Medical U-100) 100 daily. Branch unit/mL (3 mL) InPn insulin 2019- Yes [id number] 5U inject Uni vers lispro-aabc 1-06 5-14 Units it y of 100 unit/mL 00:00: under the [place] In 00 skin 3 Medical (three) Branch times daily with meals. gabapentin 2019-08 Yes [id number] 300mg Take 1 Univers 300 mg 1-06 capsule by ity of capsule 00:00: mouth 2 [place] (two) Medical times Branch daily. Insulin 2019-08 Yes [id number] 1{each} inject 1 Univers [place], 1-06 Each under ity o f Disposable, 00:00: the skin [place] (PEN 00 before Medical NEEDLE) 31 meals and Bran ch gauge x at 3/16" Ndle bedtime. Use as directed insulin 2019- Yes [id number] 22U inject 22 Univers degludec 1-06 Units ity of (TRESIBA 00:00: [place] the [place] FLEXTOUCH 00 skin Medical U-100) 100 daily. Branch unit/mL (3 mL) InPn insulin 2019- Yes [id number] 5U inject Uni vers lispro-aabc 1-06 5-14 Units it y of 100 unit/mL 00:00: under the [place] In 00 skin 3 Medical (three) Branch times daily with meals. gabapentin 2019- Yes [id number] 300mg Take 1 Univers 300 mg 1-06 capsule by ity of capsule 00:00: mouth 2 [place] (two) Medical times Branch daily. Insulin 2019- Yes [id number] 1{each} inject 1 Univers [place], 1-06 Each under ity o f Disposable, 00:00: the skin [place] (PEN 00 before Medical NEEDLE) 31 meals and Bran ch gauge x at 3/16" Ndle bedtime. Use as directed insulin 2019-08 Yes [id number] 22U inject 22 Univers degludec 1-06 Units ity of (TRESIBA 00:00: under the [place] FLEXTOUCH 00 skin Medical U-100) 100 daily. Branch unit/mL (3 mL) In insulin 2019-08 Yes [id number] 5U inject Uni vers lispro-aabc 1-06 5-14 Units it y of 100 unit/mL 00:00: under the [place] InPn 00 skin 3 Medical (three) Branch times daily with meals. gabapentin 2019-08 Yes [id number] 300mg Take 1 Univers 300 mg 1-06 capsule by ity of capsule 00:00: mouth 2 [place] 00 (two) Medical times Branch daily. Insulin 2019-08 Yes [id number] 1{each} inject 1 Univers [place], 1-06 Each under ity o f Disposable, 00:00: the skin [place] (PEN 00 before Medical NEEDLE) 31 meals and Bran ch gauge x at 3/16" Ndle bedtime. Use as directed No known 2018-0 No No known [facility] di medications 4-[address] 06[facility]03: [facility] l No known 2017-0 No No known [facility] di medications 4-[address] 06:03: s [facility]osp[facility] 15 l Immunizations Ordered Immunization Filled Immunization Date Status Commen ts Source Name Name Meningococcal 2007-01-05 Completed University of Polysaccharide 00:00:00 [facility] (groups A, C, Y and Branc h W-135) conjugate vaccine (MCV4P) TDAP 2007-01-05 Completed University of 00:00:00 [facility] Meningococcal 2007-01-05 Completed University of Polysaccharide 00:00:00 [facility] [place] [facility] cierra (groups A, C, Y and Branc h W-135) conjugate vaccine (MCV4P) TDAP 2007-01-05 Completed University of 00:00:00 [facility] Meningococcal 2007-01-05 Completed University of Polysaccharide 00:00:00 [facility] [place] [facility] cierra (groups A, C, Y and Branc h W-135) conjugate vaccine (MCV4P) TDAP 2007-01-05 Completed University 00:00:00 [facility] Meningococcal 2007-01-05 Completed University of Polysaccharide 00:00:00 [place] [facility]ierra (groups A, C, Y and Branc h W-135) conjugate vaccine (MCV4P) TDAP 2007-01-05 Completed University of 00:00:00 [facility] Meningococcal 2007-01-05 Completed University of Polysaccharide 00:00:00 [place] Medi cierra (groups A, C, Y and Branc h W-135) conjugate vaccine (MCV4P) TDAP 2007-01-05 Completed University of 00:00:00 [facility] Meningococcal 2007-01-05 Completed University of Polysaccharide 00:00:00 [place] Medi cierra (groups A, C, Y and Branc h W-135) conjugate vaccine (MCV4P) TDAP 2007-01-05 Completed University of 00:00:00 [facility] DTAP 1995-05-13 Completed University of 00:00:00 [facility] DTP 1995-05-13 Completed University of 00:00:00 [facility] MMR 1995-05-13 Completed University of 00:00:00 [facility] Polio (IPV/OPV) 1995-05-13 Completed Universit y of 00:00:00 [facility] DTAP 1995-05-13 Completed University of 00:00:00 [facility] DTP 1995-05-13 Completed University of 00:00:00 [facility] MMR 1995-05-13 Completed University of 00:00:00 [facility] Polio (IPV/OPV) 1995-05-13 Completed Universit y of 00:00:00 [facility] DTAP 1995-05-13 Completed University of 00:00:00 [facility] DTP 1995-05-13 Completed University of 00:00:00 [facility] MMR 1995-05-13 Completed University of 00:00:00 [facility] Polio (IPV/OPV) 1995-05-13 Completed Universit y of 00:00:00 [facility] DTAP 1995-05-13 Completed University of 00:00:00 [facility] DTP 1995-05-13 Completed University of 00:00:00 [facility] MMR 1995-05-13 Completed University of 00:00:00 [facility] Polio (IPV/OPV) 1995-05-13 Completed Universit y of 00:00:00 [facility] DTAP 1995-05-13 Completed University of 00:00:00 [facility] Branch DTP 1995-05-13 Completed University of 00:00:00 [facility] MMR 1995-05-13 Completed University of 00:00:00 [place] [facility] Polio (IPV/OPV) 1995-05-13 Completed Universit y of 00:00:00 [facility] DTAP 1995-05-13 Completed University of 00:00:00 [facility] DTP 1995-05-13 Completed University of 00:00:00 [facility] MMR 1995-05-13 Completed University of 00:00:00 [facility] Branch Polio (IPV/OPV) 1995-05-13 Completed Universit y of 00:00:00 [facility] DTP 1992-11-05 Completed University of 00:00:00 [facility] HIB 4 Dose Schedule 1992-11-05 Completed Unive rsity of 00:00:00 [facility] MMR 1992-11-05 Completed University of 00:00:00 [facility] Polio (IPV/OPV) 1992-11-05 Completed Universit y of 00:00:00 [facility] DTP 1992-11-05 Completed University of 00:00:00 [facility] HIB 4 Dose Schedule 1992-11-05 Completed Unive rsity of 00:00:00 [facility] MMR 1992-11-05 Completed University of 00:00:00 [facility] Polio (IPV/OPV) 1992-11-05 Completed Universit y of 00:00:00 [facility] DTP 1992-11-05 Completed University of 00:00:00 [facility] HIB 4 Dose Schedule 1992-11-05 Completed Unive rsity of 00:00:00 [facility] MMR 1992-11-05 Completed University of 00:00:00 [facility] Branch Polio (IPV/OPV) 1992-11-05 Completed Universit y of 00:00:00 [facility] DTP 1992-11-05 Completed University of 00:00:00 [facility] HIB 4 Dose Schedule 1992-11-05 Completed Unive rsity of 00:00:00 [facility] MMR 1992-11-05 Completed University of 00:00:00 [place] [facility] Polio (IPV/OPV) 1992-11-05 Completed Universit y of 00:00:00 [facility] DTP 1992-11-05 Completed University of 00:00:00 [facility] Branch HIB 4 Dose Schedule 1992-11-05 Completed Unive rsity of 00:00:00 [facility] MMR 1992-11-05 Completed University of 00:00:00 [place] [facility] Polio (IPV/OPV) 1992-11-05 Completed Universit y of 00:00:00 [facility] Branch DTP 1992-11-05 Completed University of 00:00:00 [facility] Branch HIB 4 Dose Schedule 1992-11-05 Completed Unive rsity of 00:00:00 [facility] MMR 1992-11-05 Completed University of 00:00:00 [place] [facility] Polio (IPV/OPV) 1992-11-05 Completed Universit y of 00:00:00 [facility] DTP 1992-01-17 Completed University of 00:00:00 [facility] HIB 4 Dose Schedule 1992-01-17 Completed Unive rsity of 00:00:00 [place] [facility] Polio (IPV/OPV) 1992-01-17 Completed Universit y of 00:00:00 [facility] DTP 1992-01-17 Completed University of 00:00:00 [facility] HIB 4 Dose Schedule 1992-01-17 Completed Unive rsity of 00:00:00 [facility] Branch Polio (IPV/OPV) 1992-01-17 Completed Universit y of 00:00:00 [facility] DTP 1992-01-17 Completed University of 00:00:00 [facility] HIB 4 Dose Schedule 1992-01-17 Completed Unive rsity of 00:00:00 [facility] Branch Polio (IPV/OPV) 1992-01-17 Completed Universit y of 00:00:00 [facility] DTP 1992-01-17 Completed University of 00:00:00 [facility] HIB 4 Dose Schedule 1992-01-17 Completed Unive rsity of 00:00:00 [facility] Branch Polio (IPV/OPV) 1992-01-17 Completed Universit y of 00:00:00 [place] [facility] DTP 1992-01-17 Completed University of 00:00:00 [facility] HIB 4 Dose Schedule 1992-01-17 Completed Unive rsity of 00:00:00 [place] [facility] Polio (IPV/OPV) 1992-01-17 Completed Universit y of 00:00:00 [place] [facility] DTP 1992-01-17 Completed University of 00:00:00 [facility] HIB 4 Dose Schedule 1992-01-17 Completed Unive rsity of 00:00:00 [facility] Polio (IPV/OPV) 1992-01-17 Completed Universit y of 00:00:00 [facility] DTP 1991 Completed University of 00:00:00 [facility] HIB 4 Dose Schedule 1991 Completed Unive rsity of 00:00:00 [facility] Branch Polio (IPV/OPV) 1991 Completed Universit y of 00:00:00 [facility] DTP 1991 Completed University of 00:00:00 [facility] HIB 4 Dose Schedule 1991 Completed Unive rsity of 00:00:00 [facility] Branch Polio (IPV/OPV) 1991 Completed Universit y of 00:00:00 [facility] DTP 1991 Completed University of 00:00:00 [facility] HIB 4 Dose Schedule 1991 Completed Unive rsity of 00:00:00 [facility] Polio (IPV/OPV) 1991 Completed Universit y of 00:00:00 [facility] DTP 1991 Completed University of 00:00:00 [facility] HIB 4 Dose Schedule 1991 Completed Unive rsity of 00:00:00 [facility] Branch Polio (IPV/OPV) 1991 Completed Universit y of 00:00:00 [facility] DTP 1991 Completed University of 00:00:00 [facility] HIB 4 Dose Schedule 1991 Completed Unive rsity of 00:00:00 [facility] Branch Polio (IPV/OPV) 1991 Completed Universit y of 00:00:00 [facility] DTP 1991 Completed University of 00:00:00 [facility] HIB 4 Dose Schedule 1991 Completed Unive rsity of 00:00:00 [place] [facility] Polio (IPV/OPV) 1991 Completed [facility] 00:00:00 [facility] DTP 1991 Completed University of 00:00:00 [facility] HIB 4 Dose Schedule 1991 Completed Unive rsity of 00:00:00 [facility] Polio (IPV/OPV) 1991 Completed [facility] 00:00:00 [facility] DTP 1991 Completed University of 00:00:00 [facility] HIB 4 Dose Schedule 1991 Completed Unive rsity of 00:00:00 [facility] Polio (IPV/OPV) 1991 Completed Universit y [facility] 00:00:00 [facility] DTP 1991 Completed University of 00:00:00 [facility] HIB 4 Dose Schedule 1991 Completed Unive rsity of 00:00:00 [facility] Polio (IPV/OPV) 1991 Completed Universit y of 00:00:00 [facility] DTP 1991 Completed University of 00:00:00 [facility] HIB 4 Dose Schedule 1991 Completed Unive rsity of 00:00:00 [facility] Polio (IPV/OPV) 1991 Completed Universit y [facility] 00:00:00 [facility] DTP 1991 Completed University of 00:00:00 [facility] HIB 4 Dose Schedule 1991 Completed Unive rsity of 00:00:00 [facility] Polio (IPV/OPV) 1991 Completed Universit y of 00:00:00 [facility] DTP 1991 Completed University of 00:00:00 [facility] HIB 4 Dose Schedule 1991 Completed Unive rsity of 00:00:00 [facility] Polio (IPV/OPV) 1991 Completed Universit y of 00:00:00 [facility] Vital Signs Vital Name Observation Time Observation Value Comments Source Systolic blood 2022-12-07 14:27:00 119 mm[Hg] Univer sity of pressure [facility] Diastolic blood 2022-12-07 14:27:00 83 mm[Hg] Unive rsity of pressure [facility] Heart rate 2022-12-07 14:27:00 101 /min [facility] Body temperature 2022-12-07 14:27:00 36.67 [facility] height 2022-12-07 14:27:00 154.9 cm [facility] Body weight 2022-12-07 14:27:00 53.797 kg [facility] BMI 2022-12-07 14:27:00 22.41 kg/m2 [facility] WEIGHT 2022-07-07 04:06:00 52.3 kg WEIGHT 2022-07-06 [...] kg Systolic blood 2022-07-07 11:01:00 99 mm[Hg] [facility] Diastolic blood 2022-07-07 11:01:00 63 mm[Hg] [facility] Heart rate 2022-07-07 11:01:00 95 /min [facility] Body temperature 2022-07-07 11:01:00 35.78 Tiffany [facility] Respiratory rate 2022-07-07 11:01:00 18 /min [facility] Oxygen saturation in 2022-07-07 11:01:00 98 /min [facility] Arterial blood by Medical Ce nter Pulse oximetry Body weight 2022-07-07 04:06:00 52.3 kg [facility] BMI 2022-07-07 04:06:00 23.29 kg/m2 [facility] Body height 2022-07-05 05:00:00 149.9 cm [facility] Procedures Procedure Date / Time Performing Clinician Source Performed POCT TEST 2022-12-07 14:57:00 BenitaGabrielleDunia Rodriguez [facility]ENEF[facility] 2022-12-07 14:07:37 Doctor Unassigned, No [facility] Name Medical Branch REFERRAL- 2022-11-10 05:01:00 Doctor Unassigned, No [facility] REQUEST/RESPONSE Name Medical Branch REFERRAL- 2022-10-29 05:01:00 Doctor Unassigned, No [facility] REQUEST/RESPONSE Name [facility] POCT-GLUCOSE METER 2022-07-07 11:04:00 Shaylee [facility] POCT-GLUCOSE METER 2022-07-07 07:53:00 Shaylee, [facility] CBC W/PLT COUNT & AUTO 2022-07-07 04:55:00 Carlos Gooden [facility] BASIC METABOLIC PANEL 2022-07-07 04:55:00 Johnny Torres [facility] MAGNESIUM 2022-07-07 04:55:00 Antione Todd [facility] PHOSPHORUS 2022-07-07 04:55:00 Antione Todd [facility] CBC W/PLT COUNT & AUTO 2022-07-07 04:55:00 Carlos Gooden [facility] POCT-GLUCOSE METER 2022-07-06 21:36:00 [facility] POCT-GLUCOSE METER 2022-07-06 17:39:00 [facility] POCT-GLUCOSE METER 2022-07-06 16:38:00 [facility], [facility] POCT-GLUCOSE METER 2022-07-06 16:18:00 [facility], [facility] POCT-GLUCOSE METER 2022-07-06 10:56:00 [facility] BASIC METABOLIC PANEL 2022-07-06 08:10:00 Maryanne Meade [facility] BLOOD GAS, VENOUS 2022-07-06 08:10:00 Maryanne Meade [facility] MAGNESIUM 2022-07-06 08:10:00 Maryanne Meade [facility] PHOSPHORUS 2022-07-06 08:10:00 [facility] POCT-GLUCOSE METER 2022-07-06 07:40:00 Mayo Cisse [facility] BASIC METABOLIC PANEL 2022-07-06 05:07:00 Maryanne Meade [facility] BLOOD GAS, VENOUS 2022-07-06 05:07:00 Maryanne Meade [facility] MAGNESIUM 2022-07-06 05:07:00 Maryanne Meade [facility] PHOSPHORUS 2022-07-06 05:07:00 [facility] W/[facility]T [facility] & AUTO 2022-07-06 05:07:00 Carlos Gooden [facility] CBC W/PLT COUNT & AUTO 2022-07-06 05:07:00 Carlos Gooden [facility] BASIC METABOLIC PANEL 2022-07-06 01:13:00 Maryanne Meade [facility] BLOOD GAS, VENOUS 2022-07-06 01:13:00 Maryanne Meade [facility] MAGNESIUM 2022-07-06 01:13:00 Maryanne Meade [facility] PHOSPHORUS 2022-07-06 01:13:00 Maryanne Meade [facility] POCT-GLUCOSE METER 2022-07-06 00:02:00 Mayo Cisse [facility] POCT-GLUCOSE METER 2022-07-05 23:04:00 Mayo Cisse [facility] POCT-GLUCOSE METER 2022-07-05 22:12:00 Mayo Cisse [facility] BLOOD GAS, VENOUS 2022-07-05 21:27:00 Maryanne Meade [facility] MAGNESIUM 2022-07-05 21:17:00 Maryanne Meade [facility] PHOSPHORUS 2022-07-05 21:17:00 Maryanne Meade [facility] BASIC METABOLIC PANEL 2022-07-05 21:17:00 Maryanne Meade [facility] POCT-GLUCOSE METER 2022-07-05 21:15:00 [facility]SE [facility] 2022-07-05 16:39[facility] 2022-07-05 15:38:00 Mayo Cisse [facility] POCT-GLUCOSE METER 2022-07-05 14:24:00 Betito Mayo [facility] POCT-GLUCOSE METER 2022-07-05 13:20:00 Mayo Cisse [facility] POCT-GLUCOSE METER 2022-07-05 12:44:00 [facility] BASIC METABOLIC PANEL 2022-07-05 12:34:00 Maryanne Meade [facility] BLOOD GAS, VENOUS 2022-07-05 12:34:00 Maryanne Meade [facility] MAGNESIUM 2022-07-05 12:34:00 Maryanne Meade [facility] PHOSPHORUS 2022-07-05 12:34:00 [facility] POCT-GLUCOSE METER 2022-07-05 11:37:00 Mayo Cisse [facility] POCT-GLUCOSE METER 2022-07-05 10:36:00 [facility] POCT-GLUCOSE METER 2022-07-05 09:24:00 [facility] POCT-GLUCOSE METER 2022-07-05 08:33:00 Mayo Cisse [facility] BASIC METABOLIC PANEL 2022-07-05 08:23:00 Maryanne Meade [facility] BLOOD GAS, VENOUS 2022-07-05 08:23:00 Maryanne Meade [facility] MAGNESIUM 2022-07-05 08:23:00 Maryanne Meade [facility] PHOSPHORUS 2022-07-05 08:23:00 [facility] POCT-GLUCOSE METER 2022-07-05 07:32:00 [facility]INE 2022-07-05 07:22:00 Maryanne Meade [facility] POCT-GLUCOSE METER 2022-07-05 06:31:00 [facility] POCT-GLUCOSE METER 2022-07-05 05:30:00 [facility] BLOOD CULTURE 2022-07-05 04:44:00 Maryanne Meade [facility] SARS-COV2/INFLUENZA/RSV 2022-07-05 04:33:00 Maryanne Meade [facility] RT-PCR Center HIGH SENSITIVITY 2022-07-05 04:32:00 [facility] CBC W/PLT COUNT & AUTO 2022-07-05 04:32:00 [facility] TSH/FREE T4 IF 2022-07-05 04:32:00 Maryanne Meade [facility] INDICATED Center LACTIC ACID, VENOUS 2022-07-05 04:32:00 [facility] CBC W/PLT COUNT & AUTO 2022-07-05 04:32:00 [facility]OLIC PANEL 2022-07-05 04:32:00 Maryanne Meade [facility] BLOOD GAS, VENOUS 2022-07-05 04:32:00 Maryanne Meade [facility] MAGNESIUM 2022-07-05 04:32:00 Maryanne Meade [facility] PHOSPHORUS 2022-07-05 04:32:00 Maryanne Meade [facility] HEMOGLOBIN A1C 2022-07-05 04:32:00 Maryanne Meade [facility] POCT-GLUCOSE METER 2022-07-05 04:23:00 [facility] POCT-GLUCOSE METER 2022-07-05 02:40:00 [facility] POCT-GLUCOSE METER 2022-07-05 01:32:00 [facility] EKG-SCANNED 2022-07-05 00:00:00 [facility]re [facility] Plan of Care Planned Activity Planned Date Details Comments Source Future Scheduled 2023-04-15 INFLUENZA VACCINE (Season [facility] 00:00:00 Ended) [code = [facility] ([facility] Ended)] Future Scheduled 2022-08-15 DEPRESSION SCREENING ([address]+) [facility] 00:00:00 [code = DEPRESSION Medical C enter SCREENING (12+)] Future Scheduled 2022-08-15 DEPRESSION SCREENING (12+) [facility] Test 00:00:00 [code = DEPRESSION Medical C enter SCREENING (12+)] Future Scheduled 2022-07-05 Hemoglobin A1c measurement [facility] 00:00:00 (procedure) [code = [facility] [id number]] Future Scheduled 2022-07-05 Hemoglobin A[address]c measurement [facility] 00:00:00 (procedure) [code = [facility] [id number]] Future Scheduled 2022-04-15 INFLUENZA VACCINE (#1) [facility] 00:[facility]00 [code = INFLUENZA VACCINE [facility] (#1)] Future Scheduled 2017-01-05 DTAP/TDAP/TD VACCINES (7 - [facility] 00:00:00 Td or Tdap) [code = [facility] DTAP/TDAP/TD VACCINES (7 - Td or Tdap)] Future Scheduled 2017-01-05 DTAP/TDAP/TD VACCINES (7 - [facility] 00:00:00 Td or Tdap) [code = Medical Center DTAP/TDAP/TD VACCINES (7 - Td or Tdap)] Future Scheduled 2012 Screening for malignant [facility] 00:00:00 neoplasm of cervix Medical C enter (procedure) [code = 934626213] Future Scheduled 2012 Screening for malignant [facility] Test 00:00:00 neoplasm of cervix Medical C enter (procedure) [code = 076275756] Future Scheduled 2011 Lipid panel (procedure) [facility] 00:00:00 [code = 18994955] Medical Ce nter Future Scheduled 2011 Lipid panel (procedure) [facility] 00:00:00 [code = 24554920] Medical Ce nter Future Scheduled 2009 HEPATITIS C SCREENING [facility] 00:00:00 [code = HEPATITIS C Medical Center SCREENING] Future Scheduled 2009 HEPATITIS C [facility]CRE[facility]ING [facility] 00:00:00 [code = HEPATITIS C Medical Center SCREENING] Future Scheduled [address] [facility] Test 00:00:00 Counseling and Screening [facility] ical Center (12+) [code = Tobacco Cessation Counseling and Screening (12+)] Future Scheduled [address] [facility] 00:00:00 [facility] (12+) [code = Tobacco Cessation Counseling and Screening (12+)] Future Scheduled 2001 DIABETIC EYE EXAM [code = [facility] 00:00:00 DIABETIC EYE EXAM] Medical C enter Future Scheduled 2001 Diabetic foot examination [facility] Test 00:00:00 (regime/therapy) [code = Med ical Center [id number]] Future Scheduled 2001 Urine screening for [facility] 00:00:00 protein (procedure) [[id number]] Future Scheduled 2001 Diabetic foot examination [facility] 00:00:00 (regime/therapy) [code = Med ical Center 753489930] Future Scheduled 2001 Urine screening for [facility] 00:00:00 protein (procedure) [code Sc dicmo Center = 382805099] Future Scheduled 2001 DIABETIC EYE EXAM [code = [facility] 00:00:00 DIABETIC EYE EXAM] Medical C enter Future Scheduled 1997 PNEUMOCOCCAL VACCINE 0-[address] [facility] Test 00:00:00 YRS (1 - PCV) [code = Medica l Center PNEUMOCOCCAL VACCINE 0-64 YRS (1 - PCV)] Future Scheduled 1997 PNEUMOCOCCAL VACCINE 0-[address] [facility] Test 00:00:00 YRS (1 - PCV) [code = Medica l Center PNEUMOCOCCAL VACCINE 0-64 YRS (1 - PCV)] Future Scheduled 1991 COVID-19 VACCINE (#1) [facility] 00:00:00 [code = COVID-19 VACCINE Med ical Center (#1)] Future Scheduled 1991 COVID-19 VACCINE (#1) [facility] 00:00:00 [code = COVID-19 VACCINE Med ical Center (#1)] Medication 2022-12-14 medroxyPROGESTERone Universi ty of 14:00:00 (DEPO-PROVERA) syringe [facility] [place] [facility] [code = 2482056] Branch Medication 2022-12-14 medroxyPROGESTERone Universi ty of 14:00:00 (DEPO-PROVERA) syringe [facility] [place] [facility] [code = 8756933] Branch Encounters Start End Encounter Admission Attending Care Care Encounter Source Date/Time Date/Time Type Type Clinicians Facility Department ID 2022-12-14 2022-12-14 Outpatient R [facility] [id number] Univers 14:00:00 14:00:00 ity [facility] 2022-12-07 2022-12-07 Outpatient R DUNIA GARCIA [facility] U [facility] [id number] Univers 09:00:00 09:59:50 DUNIA GARCIA ity [facility] 2022-12-07 2022-12-07 Office Porfirio [facility] [id number] Univers 09:00:00 09:59:50 Visit [id number] [facility] [id number] Melissa mcbride PROFESSCORKY [phone] Sc dical NAL [address] [facility] 2022-12-07 2022-12-07 Orders Doctor AMBER [id number] Univers 00:00:00 00:00:00 Only Unassigned, HERNAN [id number] [facility]y [facility] [id number] Dwight as [phone] [address] 2022-11-16 2022-11-16 Outpatient R DUNIA GARCIA [facility] [id number] Univers 14:30:00 14:30:00 DUNIA GARCIA ity of [facility] 2022-11-10 2022-11-10 Orders Doctor AMBER [id number] Univers 00:00:00 00:00:00 Only Unassigned, HERNAN [id number] ity of [place] [facility] [id number] Dwight as [phone] [address] 2022-11-04 2022-11-04 [facility]phone [facility] [id number] Univers 00:00:00 00:00:00 [facility] [employer] [id number] it y of [place] 4.2.7.2.686 Dwight as NAOMI?BLEA [phone] [address] MEDICAL OFFICE BUILDING 2022-10-29 2022-10-29 Orders Doctor AMBER [id number] Univers 00:00:00 00:00:00 Only Unassigned, HERNAN [id number] ity of [place] [facility] [id number] Dwight as [phone] [address] 2022-07-05 2022-07-07 Hospital ER [facility] [id number] [facility] 01:07:00 16:32:00 Encounter Mayo Cisse, [facility] 2022-07-05 2022-07-07 Inpatient ER [facility] Medical ICU 2 [id number] [facility] 01:07:00 16:32:00 [facility] 2022-07-05 2022-07-07 [facility] [id number] [facility] 01:07:00 16:32:00 Encounter Mayo Cisse [facility] 2020-12-12 2020-12-12 Outpatient Nalini DIRK [facility] [id number] Univers 13:30:00 13:30:00 NEYMAR gan [facility] 2020-06-20 2020-06-20 [facility] [id number] 10:27:33 12:32:24 Visit Neymar Mehul [place] [id number] Vanessa 4.2.7.2.686 Indu [phone] [address] 2020-06-20 2020-06-20 Outpatient [facility] [id number] Univers 11:00:00 11:00:00 NEYMAR gan [facility] 2018-07-27 2018-07-27 Outpatient ROHAN Fuchs CHW [id number] [facility] 10:52:00 10:52:00 [facility] 2018-06-14 2018-06-14 Outpatient ROHAN Fuchs CHGeovani [id number] [facility] 11:19:00 11:19:00 [facility] Yaima kiki [facility] s 2018-05-23 2018-05-23 Outpatient ROHAN Yu CHW [id number] [facility] 16:00:00 16:00:00 [facility] Results Test Description Test Time Test Comments Results Result Comments Source POCT TEST 2022-12-07 14:57:00 Test Item Value Reference Range Interpretation Comme nts POCT PREG (test code = 1605) Negative On board controls acceptable with C Line (test code = 3574) Yes POCT PREG LOT # (test code = 3575) POCT PREG TEST DATE (test code = 3576) [facility] [id number] 14:57:00 Test Item Value Reference Range Interpretation Comments POCT PREG (test code = 1605) Negative On board controls acceptable with C Yes Line (test code = 3574) POCT PREG LOT # (test code = 3575) POCT PREG TEST DATE (test code = 3576) [facility] [id number] 07:01:24 Test Item Value Reference Range Interpretation Comments CULTURE (BEAKER) (test No growth in 5 days code = 1095) POC-Glucose [id number] 11:21:34 Test Item Value Reference Range Interpretation Comments POC-Glucose Meter (test 258 mg/dL 70-110 H : TE STED AT [facility] code = 1538) [address] [facility], 770 30: Poultry Offal Icer/Techni yessi ID = [id number] for CLAYTON PLUMMER IE Lab Interpretation (test Abnormal code = 11317-3) [facility] [id number] 11:21:34 Test Item Value Reference Range Interpretation Comments POC-Glucose Meter (test 258 mg/dL 70-110 H : TE STED AT [facility] code = 1538) [address] [facility], 770 30: Poultry Offal Icer/Techni yessi ID = [id number] for CLAYTON PLUMMER IE Lab Interpretation (test Abnormal code = 06207-0) [facility] [id number] 11:21:34 Test Item Value Reference Range Interpretation Comments POC-GLUCOSE METER 258 mg/dL 70-110 H : TESTED A T [facility] 6720 (BEAKER) (test code [facility], = 1538) 66374: Poultry Offal Icer/Techni yessi ID = [id number] for WILS ON, TONYSTANIE POCT-GLUCOSE [id number] 08:11:52 Test Item Value Reference Range Interpretation Comments POC-GLUCOSE METER 139 mg/dL 70-110 H : TESTED A T [facility] 6720 (BEAKER) (test code [facility], = 1538) 20116: Poultry Offal Icer/Techni yessi ID = [id number] for WILS ON, SHASTANIE BASIC METABOLIC [id number] 06:34:19 Test Item Value Reference Range Interpretation [...] De scription 1092) sq m Result G1 Norm al or high >=90 G2 Mildly decreased 60-89 [...] not appl icable for dialysis patien ts Poultry Offal Icer ID Gabrielle DSOUZA [id number] 06:34:19 Test Item Value Reference Range Interpretation Comments MAGNESIUM (BEAKER) (test code = 1.8 mg/dL 1.6-2.6 627) Poultry Offal Icer ID Gabrielle DSOUZA [id number] 06:34:19 Test Item Value Reference Range Interpretation Comments PHOSPHORUS (BEAKER) (test code = 3.0 mg/dL 2.3-4.7 604) Poultry Offal Icer ID Gabrielle DSOUZA [facility] W/PLT COUNT & AUTO [id number] 05:12:05 Test Item Value Reference Range Interpretation [...] PERCENT (BEAKER) (test code = 2801) POCT-GLUCOSE [id number] 21:47:45 Test Item Value Reference Range Interpretation Comments POC-GLUCOSE METER 286 mg/dL 70-110 H : TESTED A T [facility] 6720 (BEAKER) (test code = [place]ALIE PRES[place], 1538) 61933: Poultry Offal Icer/Techni yessi ID = [id number] for SANFORD ZAMUDIO POCT-GLUCOSE [id number] 17:50:44 Test Item Value Reference Range Interpretation Comments POC-GLUCOSE METER 68 mg/dL 70-110 L : TESTED A T [facility] 6720 (BEAKER) (test code = [facility], 1538) 76187: Poultry Offal Icer/Techni yessi ID = [id number] for WILL IS RAJI POCT-GLUCOSE [id number] 16:49:27 Test Item Value Reference Range Interpretation Comments POC-GLUCOSE METER 72 mg/dL 70-110 : TESTED A T [facility] 6720 (BEAKER) (test code = [facility], 1538) 19225: Poultry Offal Icer/Techni yessi ID = [id number] for Arcelia porras (contract), Tiffany david POCT-GLUCOSE [id number] 16:31:02 Test Item Value Reference Range Interpretation Comments POC-GLUCOSE METER 52 mg/dL 70-110 L : TESTED A T [facility] 6720 (BEAKER) (test code = [facility], 1538) 83787: Poultry Offal Icer/Techni yessi ID = [id number] for Arcelia sigan (contract), Tiffany david POCT-GLUCOSE [id number] 11:09:38 Test Item Value Reference Range Interpretation Comments POC-GLUCOSE METER 197 mg/dL 70-110 H : TESTED A T [facility] 6720 (BEAKER) (test code [facility], = 1538) 80863: Poultry Offal Icer/Techni yessi ID = [id number] for Arcelia sigan (contract), Tiffany david BLOOD GAS, [id number] 09:37:51 Test Item Value Reference Range Interpretation [...] (test code = 1819) 21.0 BASIC METABOLIC [id number] 09:05:04 Test Item Value Reference Range Interpretation [...] not appl icable for dialysis patien ts Poultry Offal Icer ID - JUSTEN [id number] 08:57:01 Test Item Value Reference Range Interpretation Comments MAGNESIUM (BEAKER) 2.0 mg/dL 1.6-2.6 Specimen slightly (test code = 627) hemolyzed Poultry Offal Icer ID - JUSTEN [id number] 08:57:01 Test Item Value Reference Range Interpretation Comments PHOSPHORUS (BEAKER) 2.4 mg/dL 2.3-4.7 Specimen slightly (test code = 604) hemolyzed Poultry Offal Icer ID - JUSTEN LPOCT-GLUCOSE [id number] 07:53:47 Test Item Value Reference Range Interpretation Comments POC-GLUCOSE METER 274 mg/dL 70-110 H : TESTED A T [facility] 6720 (BEAKER) (test code [facility], = 1538) 44225: Poultry Offal Icer/Techni yessi ID = [id number] for Arcelia porras (contract), Tiffany david CBC W/PLT COUNT & AUTO [id number] 06:02:22 Test Item Value Reference Range Interpretation [...] 0.00-1.00 PERCENT (BEAKER) (test code = 2801) [id number] 05:53:00 Test Item Value Reference Range Interpretation Comments MAGNESIUM (BEAKER) 2.4 mg/dL 1.6-2.6 Specimen slightly (test code = 627) hemolyzed Poultry Offal Icer ID - PIAYA [id number] 05:53:00 Test Item Value Reference Range Interpretation Comments PHOSPHORUS (BEAKER) 2.1 mg/dL 2.3-4.7 L Specimen slightly (test code = 604) hemolyzed Poultry Offal Icer ID - PIAYA LBASIC METABOLIC [id number] 05:53:00 Test Item Value Reference Range Interpretation [...] eGF R is based on the CKD-EPI 2021 equation that d oes not use a race coefficientEsti mated GFR is not as accur ate as Creatinine Carmen gray in predicting glom erular filtration rate . Estimated GFR is not appl icable for dialysis patien ts Poultry Offal Icer ID - JUSTEN LBLOOD GAS, [id number] 05:26:22 Test Item Value Reference Range Interpretation [...] (test code = 1819) 21.0 BASIC METABOLIC [id number] 02:03:34 Test Item Value Reference Range Interpretation [...] not appl icable for dialysis patien ts Poultry Offal Icer ID - JUSTEN [id number] 01:45:29 Test Item Value Reference Range Interpretation Comments MAGNESIUM (BEAKER) (test code = 1.7 mg/dL 1.6-2.6 627) Poultry Offal Icer ID - JUSTEN [id number] 01:45:29 Test Item Value Reference Range Interpretation Comments PHOSPHORUS (BEAKER) (test code = 2.4 mg/dL 2.3-4.7 604) Poultry Offal Icer ID - JUSTEN LBLOOD GAS, [id number] 01:25:28 Test Item Value Reference Range Interpretation [...] (BEAKER) (test code = 1819) 21.0 POCT-GLUCOSE [id number] 00:15:44 Test Item Value Reference Range Interpretation Comments POC-GLUCOSE METER 100 mg/dL 70-110 : TESTED A T [facility] 6720 (BEAKER) (test code = NATALIE Gayle [facility], 1538) 02829: Poultry Offal Icer/Techni yessi ID = [id number] for FELICE RICHMOND POCT-GLUCOSE [id number] 23:15:21 Test Item Value Reference Range Interpretation Comments POC-GLUCOSE METER 101 mg/dL 70-110 : TESTED A T [facility] 6720 (BEAKER) (test code = NATALIE Gayle [place], 1538) 37970: Poultry Offal Icer/Techni yessi ID = [id number] for Poppy Bagley i POCT-GLUCOSE [id number] 22:24:36 Test Item Value Reference Range Interpretation Comments POC-GLUCOSE METER 73 mg/dL 70-110 : TESTED A T [facility] 6720 (BEAKER) (test code = NATALIE Gayle [facility], 1538) 67723: Poultry Offal Icer/Techni yessi ID = [id number] for FELICE SANTOS BASIC METABOLIC [id number] 22:00:23 Test Item Value Reference Range Interpretation [...] not appl icable for dialysis patien ts Poultry Offal Icer ID - [id number] 22:00:23 Test Item Value Reference Range Interpretation Comments MAGNESIUM (BEAKER) (test code = 1.8 mg/dL 1.6-2.6 627) Poultry Offal Icer ID - [id number] 22:00:23 Test Item Value Reference Range Interpretation Comments PHOSPHORUS (BEAKER) (test code = 2.8 mg/dL 2.3-4.7 604) Poultry Offal Icer ID - AZBLOOD GAS, [id number] 21:35:45 Test Item Value Reference Range Interpretation [...] (BEAKER) (test code = 1819) 21.0 POCT-GLUCOSE [id number] 21:26:21 Test Item Value Reference Range Interpretation Comments POC-GLUCOSE METER 92 mg/dL 70-110 : TESTED A T [facility] 6720 (BEAKER) (test code = [facility], 153) 89411: Poultry Offal Icer/Techni yessi ID = [id number] for Ppopy Tobin POCT-GLUCOSE [id number] 16:51:00 Test Item Value Reference Range Interpretation Comments POC-GLUCOSE METER 176 mg/dL 70-110 H : TESTED A T [facility] 6720 (BEAKER) (test code = [facility], 1538) 28911: Poultry Offal Icer/Techni yessi ID = [id number] for Daisy Pascal POCT-GLUCOSE [id number] 15:50:57 Test Item Value Reference Range Interpretation Comments POC-GLUCOSE METER 174 mg/dL 70-110 H : TESTED A T [facility] 6720 (BEAKER) (test code = [facility], 1538) 70641: Poultry Offal Icer/Techni yessi ID = [id number] for IB SERGIO ELIZONDO BASIC METABOLIC [id number] 14:41:08 Test Item Value Reference Range Interpretation [...] not appl icable for dialysis patien ts Poultry Offal Icer ID - [id number] 14:39:22 Test Item Value Reference Range Interpretation Comments MAGNESIUM (BEAKER) (test code = 2.1 mg/dL 1.6-2.6 627) Poultry Offal Icer ID - [id number] 14:39:22 Test Item Value Reference Range Interpretation Comments PHOSPHORUS (BEAKER) (test code = 1.8 mg/dL 2.3-4.7 L 604) Poultry Offal Icer ID - MARCOPOCT-GLUCOSE [id number] 14:36:37 Test Item Value Reference Range Interpretation Comments POC-GLUCOSE METER 171 mg/dL 70-110 H : TESTED A T [facility] 6720 (BEAKER) (test code = [facility], 1538) 06313: Poultry Offal Icer/Techni yessi ID = [id number] for IB RAHIM, [place] POCT-GLUCOSE [id number] 13:31:59 Test Item Value Reference Range Interpretation Comments POC-GLUCOSE METER 127 mg/dL 70-110 H : TESTED A T [facility] 6720 (BEAKER) (test code = [facility], 1538) 76545: Poultry Offal Icer/Techni yessi ID = [id number] for IB RAHIM, [place] POCT-GLUCOSE [id number] 12:55:21 Test Item Value Reference Range Interpretation Comments POC-GLUCOSE METER 165 mg/dL 70-110 H : TESTED A T [facility] 6720 (BEAKER) (test code = [facility], 1538) 40980: Poultry Offal Icer/Techni yessi ID = [id number] for Daisy Pascal BLOOD GAS, [id number] 12:48:29 Test Item Value Reference Range Interpretation [...] (BEAKER) (test code = 1819) 21.0 POCT-GLUCOSE [id number] 12:33:46 Test Item Value Reference Range Interpretation Comments POC-GLUCOSE METER 174 mg/dL 70-110 H : TESTED A T [facility] 6720 (BEAKER) (test code = [facility], 1538) 09856: Poultry Offal Icer/Techni yessi ID = [id number] for IB RAHIM, [place] POCT-GLUCOSE [id number] 10:48:24 Test Item Value Reference Range Interpretation Comments POC-GLUCOSE METER 189 mg/dL 70-110 H : TESTED A T [facility] 6720 ([employer] [place]) (test code = [facility] Nalini [facility], 1538) 82060: Poultry Offal Icer/Techni yessi ID = [id number] for SERGIO ROSAS HEMOGLOBIN [id number] 10:33:22 Test Item Value Reference Range Interpretation Comments HEMOGLOBIN A1C 9.9 % See_Comment H [Automated m essage] ELECTROPHORESIS (BEAKER) The system which (test code = 3811) generated this result transmitted ref erence range: <=5.6%. The reference range was not used to int erpret this result as normal/abnormal . "The A1c is measured using a [facility]-certified method. HbA1c value equal to or greater than 6.5% as thediagnosis cutoff for diabetes. An HbA1c value of 5.7- 6.4% indicates increased risk for diabetes (prediabetes)."Poultry Offal Icer ID - ADMPOCT- GLUCOSE [id number] 09:37:04 Test Item Value Reference Range Interpretation Comments POC-GLUCOSE METER 211 mg/dL 70-110 H : TESTED A T [facility] 6720 (BEAKER) (test code = [facility] Nalini [facility], 1538) 33266: Poultry Offal Icer/Techni yessi ID = [id number] for SERGIO ROSAS [id number] 09:19:13 Test Item Value Reference Range Interpretation Comments PHOSPHORUS (BEAKER) (test code = 1.2 mg/dL 2.3-4.7 LL 604) Poultry Offal Icer ID - CHARLIE GBASIC METABOLIC [id number] 09:08:43 Test Item Value Reference Range Interpretation [...] (test code = 697) EGFR (BEAKER) 106 Interpretati on of eGFR (test code = mL/min/1.73 values [...] not appl icable for dialysis patien ts Poultry Offal Icer ID - CHARLIE [id number] 09:05:45 Test Item Value Reference Range Interpretation Comments MAGNESIUM (BEAKER) (test code = 2.1 mg/dL 1.6-2.6 627) Poultry Offal Icer ID - CHARLIE GPOCT-GLUCOSE [id number] 08:48:23 Test Item Value Reference Range Interpretation Comments POC-GLUCOSE METER 233 mg/dL 70-110 H : [facility] ([facility] (test code = [place], 1538) 86122: Poultry Offal Icer/Techni yessi ID = [id number] for Daisy Pascal BLOOD GAS, [id number] 08:38:28 Test Item Value Reference Range Interpretation [...] (BEAKER) (test code = 1819) 21.0 Screen, [id number] 08:10:39 Test Item Value Reference Range Interpretation Comments Preg Test, Ur (test code = 2-1) Negative Negative Lab Interpretation (test code = Normal 75670-4) [facility] [id number] 08:10:39 Test Item Value Reference Range Interpretation Comments Preg Test, Ur (test code = 2-1) Negative Negative Lab Interpretation (test code = Normal 45026-6) [facility], [id number] 08:10:39 Test Item Value Reference Range Interpretation Comments TEST URINE (BEAKER) (test Negative Negative code = 583) POCT-GLUCOSE [id number] 07:44:37 Test Item Value Reference Range Interpretation Comments POC-GLUCOSE METER 222 mg/dL 70-110 H : TESTED A T [facility] 6720 (BEAKER) (test code = [facility], 1538) 83663: Poultry Offal Icer/Techni yessi ID = [id number] for IB RAHIM, [place] POCT-GLUCOSE [id number] 06:44:09 Test Item Value Reference Range Interpretation Comments POC-GLUCOSE METER 245 mg/dL 70-110 H : TESTED A T [facility] 6720 (BEAKER) (test code = [facility], 1538) 17325: Poultry Offal Icer/Techni yessi ID = [id number] for FELICE RICHMOND TSH/FREE T4 IF [id number] 06:40:23 Test Item Value Reference Range Interpretation Comments THYROID STIMULATING HORMONE 0.958 uIU/mL 0.350-4.940 (BEAKER) (test code = 772) Poultry Offal Icer ID - CHARLIE GBASIC METABOLIC [id number] 06:01:56 Test Item Value Reference Range Interpretation Comments SODIUM (BEAKER) 138 meq/L 136-145 (test code = 381) POTASSIUM 3.7 meq/L 3.5-5.1 (BEAKER) (test code = 379) CHLORIDE (BEAKER) 117 meq/L 98-107 H (test code = 382) CO2 (BEAKER) 7 meq/L 22-29 LL (test code = 355) BLOOD UREA 9 mg/dL 7-21 NITROGEN (BEAKER) (test code = 354) CREATININE 0.82 mg/dL 0.57-1.25 (BEAKER) (test code = 358) GLUCOSE RANDOM 198 mg/dL 70-105 H (BEAKER) (test code = 652) CALCIUM (BEAKER) 7.7 mg/dL 8.4-10.2 L (test code = 697) EGFR (BEAKER) 98 Interpretatio n of eGFR (test code [...] not appl icable for dialysis patien ts Poultry Offal Icer ID - CHARLIE GSARS-CoV2/Influenza/RSV [id number] 05:53:01 Test Item Value Reference Interpretation Comments Range SARS-COV2/RT-PCR Negative Negative The SARS-Co V-2 (test code = target nucleic 93778-9) acids are not detected in [facility] s specimen. Negat alexys results do not [...] om SARS-CoV-2 in a [facility]oph[facility]ab [facility] from individual s suspected of COVID-19 by the ir healthcare provider. Influenza A RT-PCR Positive Negative AA The Flu A target (test code = nucleic acids [place] re 28789-5) detected in [facility] s specimen. Influenza B RT-PCR Negative Negative The Flu B target (test code = [place] 90260-9) not detected in this specimen. RSV by RT-PCR (test Negative Negative The RSV target code = 24086-6) nucleic acid s are not detected in [...] the Act. Fact Sheet for Healthcare Providers:https://w [employer].CoderBuddy/Docu ments/Xpert%20Xpres s%20SARS%20CoV-2/Fa ct%20Sheets/302-390 2%48ADAT-HWZ-4%20HE ALTHCARE%20PROVIDER S%20FACT%20SHEET.pd f Fact Sheet for Healthcare Patients:https://mindi Voucheres/Docum ents/Xpert%20Xpress %20SARS%20Cov-2/Fac t%20Sheets/302-3801 %04UJFZ-MEH-9%20PAT IENT%20FACT%20SHEET .pdf Lab Interpretation Abnormal (test code = 25341-9) [facility]V [id number] 05:53:01 Test Item Value Reference Interpretation Comments Range SARS-COV2/RT-PCR Negative Negative The SARS-Co V-2 (test code = target nucleic 15704-0) acids are not detected in [facility] s specimen. Negat alexys results do not [...] (test code = [place] 11598-2) detected in [facility] s specimen. Influenza B RT-PCR Negative Negative The Flu B target (test code = [place] 93952-7) not detected in this specimen. RSV by RT-PCR (test Negative Negative The RSV target code = 19184-7) nucleic acid s are not detected in [...] SARS-CoV-2/Flu/RSV by their healthcare provider. Results from [facility] Xpert Xpress SARS-CoV-2/Flu/RSV test should be correlated [...] the Act. Fact Sheet for Healthcare Providers:https://w Repairy/Docu ments/Xpert%20Xpres s%20SARS%20CoV-2/Fa ct%20Sheets/302-390 2%11RSSI-XXH-4%20HE ALTHCARE%20PROVIDER S%20FACT%20SHEET.pd f Fact Sheet for Healthcare Patients:https://Covarity/Docum ents/Xpert%20Xpress %20SARS%20Cov-2/Fac t%20Sheets/302-3801 %41SFUB-DLS-1%20PAT IENT%20FACT%20SHEET .pdf Lab Interpretation Abnormal (test code = 87625-8) [facility]/INFLUENZA/RSV [id number] 05:53:01 Test Item Value Reference Range Interpretation Comments SARS-COV2/RT-PCR Negative Negative The SARS-Co V-2 target (test code = nucleic acids a re not 3537220) detected in thi s specimen. Negat alexys [...] individuals adrian pected of COVID-19 by the [facility]. INFLUENZA A RT-PCR Positive Negative AA The Flu A target nucleic (test code = acids are detec jaems in 19100918) this specimen. INFLUENZA B RT-PCR Negative Negative The Flu B target nucleic (test code = acids are not d etected in 19100919) this specimen. RSV RT-PCR (test Negative Negative The RSV tar get nucleic code = 19100920) acids are no t detected in this [...] Xpress SARS-CoV-2/Flu/RSV by their healthcareprovider. Results from [facility] Xpert Xpress SARS-CoV-2/Flu/RSV test should be correlated [...] of the Act.Fact Sheet for Healthcare Providers:https ://www.CoderBuddy/Documents/Xpert%20Xpress%20SARS%20CoV-2/Fact%20Sheets/302-390 2%05PYCT-ASO-8%20HEALTHCARE%20PROVIDERS%20FACT%20SHEET.pdfFact Sheet for Healthcare Patients:https://www.CoderBuddy/Docum ents/Xpert%20Xpress%20SARS%20Cov-2/Fact%20Sheets/302-3801%72NRCS-RDR-4%20PATIENT %20FACT%20SHEET.pdfPOCT-GLUCOSE [id number] 05:47:16 Test Item Value Reference Range Interpretation Comments POC-GLUCOSE METER 199 mg/dL 70-110 H : TESTED A T [facility] 6720 (BEAKER) (test code = NATALIE Gayle [facility], 1538) 51560: Poultry Offal Icer/Techni yessi ID = [id number] for Elissa Lewis [id number] 05:44:41 Test Item Value Reference Range Interpretation Comments MAGNESIUM (BEAKER) (test code = 1.5 mg/dL 1.6-2.6 L 627) Poultry Offal Icer ID - CHARLIE [id number] 05:44:41 Test Item Value Reference Range Interpretation Comments PHOSPHORUS (BEAKER) (test code = 1.7 mg/dL 2.3-4.7 L 604) Poultry Offal Icer ID - CHARLIE GLACTIC ACID, [id number] 05:40:57 Test Item Value Reference Range Interpretation Comments LACTATE BLOOD VENOUS (2) (BEAKER) 0.86 mmol/L 0.50-2.20 (test code = 2872) Poultry Offal Icer ID - CHARLIE GCBC W/PLT COUNT & AUTO [id number] 05:35:44 Test Item Value Reference Range Interpretation [...] (test code = 2801) HIGH SENSITIVITY TROPONIN [id number] 05:26:53 Test Item Value Reference Range Interpretation Comments HIGH SENSITIVITY < pg/ml See_Comment [Automated message] TROPONIN I (test code = The system which 4486489) generated this result transmitted ref erence range: <=17. Th e reference range was not used to interpr et this result as normal/abnormal . Poultry Offal Icer ID - CHARLIE GThe BOOK EDITOR STAT High Sensitivity Troponin-I results should be used in conjunction with other diagnostic information such as ECG, clinical observations and information, and patient symptoms to aid in the diagnosis of ME.BLOOD GAS, [id number] 05:11:35 Test Item Value Reference Range Interpretation [...] (BEAKER) (test code = 1819) 21.0 POCT-GLUCOSE [id number] 04:35:37 Test Item Value Reference Range Interpretation Comments POC-GLUCOSE METER 195 mg/dL 70-110 H : TESTED A T [facility] 6720 (BEAKER) (test code = [facility] [employer] [facility], 1538) 76238: Poultry Offal Icer/Techni yessi ID = [id number] for DA CAROL FELICE POCT-GLUCOSE [id number] 03:28:15 Test Item Value Reference Range Interpretation Comments POC-GLUCOSE METER 201 mg/dL 70-110 H : TESTED A T [facility] 6720 (BEAKER) (test code = [facility] [employer] [facility], 1538) 27764: Poultry Offal Icer/Techni yessi ID = [id number] for Ez enwugo, Homa POCT-GLUCOSE [id number] 01:43:58 Test Item Value Reference Range Interpretation Comments POC-GLUCOSE METER 184 mg/dL 70-110 H : TESTED A T [facility] 6720 ([facility]) (test code = [place], 1538) 15237: Poultry Offal Icer/Techni yessi ID = [id number] for Cindy Campos
--- NOTE | 2022-12-07 22:10 | RAD REPORT ---
EXAM DESCRIPTION: RAD - Ankle Right 2 View - 12/07/2022 9:59 pm CLINICAL HISTORY: Pain;Smash injury COMPARISON: <Comparisons> FINDINGS: Moderately comminuted fracture of the distal shaft of the tibia and fibula present. No dis location seen.
[2022-12-07] MEDS ORDERED: ONDANSETRON 4 MG/2 ML VIAL ONE (22:19)
[2022-12-07] MEDS ORDERED: MORPHINE 4 MG/ML SYR ONE ×2 (22:19→23:06)
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
[2022-12-07] MEDS ORDERED: HYDROCODONE/APAP 7.5/325 MG TAB ONE (23:45)
[2022-12-08 01:32] VITALS: BP 132/87; O2SAT 99
== END 2022-12-07 23:57 | disposition home or self-care (01) ==
LOC: ER 20:49
PROC: 2W3QX1Z Immobilization of Right Lower Leg using Splint (ICD-10-PCS; principal; 2022-12-07)
DX: S82.301A Unspecified fracture of lower end of right tibia, initial encounter for closed fracture (principal)
CPT/HCPCS: 73600; 96375; 96374; 99285; 29515; J2405

== ENCOUNTER 2022-12-17 04:34 | Emergency (ER) | payer OTHER ==
--- OUTSIDE RECORDS SUMMARY | 2022-12-17 04:41 | XMS REPORT | Continuity of Care Document ---
:1990 Author Organization [facility] t Address [address] [facility] [address] [place] [address] Care Team Providers Name Role Phone Provider, Unknown Primary Care Physician Unavailable TYE VANEGAS Attending Clinician Unavailable KM BROCK Attending Clinician Unavailable GARRETT BULLARD Attending Clinician Unavailable Ling Camarillo DO Attending Clinician Rodolfo Sparrow DO Attending Clinician DUNIA RODRIGUEZ Attending Clinician Unavailable DUNIA RODRIGUEZ Attending Clinician Unavailable Nurse, [facility] Attending Clinician Unavailable Mor Mackey MD Attending Clinician Doctor Unassigned, Zemple Attending Clinician Unavailable Neymar Cavazos MD Attending Clinician Yulia Mary MD Attending Clinician Betito MILLER, Mayo Thomas Attending Clinician [phone] Noman Almodovar MD Attending Clinician Poppy Manzo MD Attending Clinician POPPY MANZO Attending Clinician Unavailable NEYMAR CAVAZOS Attending Clinician Unavailable Jeffry Fuchs Attending Clinician Unavailable Linda Yu Attending Clinician Unavailable RODOLFO SPARROW Admitting Clinician Unavailable Rodolfo Sparrow DO Admitting Clinician YULIA MARY Admitting Clinician Unavailable Payers Payer Name Policy Type Policy Number Effective Date Expiration Date S [facility] [id number] 2019 PLUS 00:00:00 [place]ICAID OF [place] [id number] 2019 00:00:00 Problems Condition Condition Condition Status Onset Resolution Last Treating Co mments Source Name Details Category Date Date Treatment Clinician Date DKA, type DKA, type Disease Active Uni vers 1, not at 1, not at 5-02 ity of goal goal 00:00: [place] [id number] Medical Branch DKA DKA Disease Recurre 2021-[address] [facility] (diabetic (diabetic nce 1-21 [facility] s ketoacidos ketoacidos 00:00: Me dical is) is) 00 Center Asthma Asthma Disease Active 2020-08 Overview: Univer s 2-06 Formattin ity of 00:00: g of this [place] [address] note Medical might be Branch different from [...] Medical Branch Hyperglyce Hyperglyce Disease Active U eugenia buck buck 2-18 ity of 00:00: [place] 00 Medical Branch Uncontroll Uncontroll Disease Active Overview : Univers ed type 1 ed type 1 25 Formattin i ty of diabetes diabetes 00:00: g of this [place] mellitus mellitus 00 note Medica l might be Branch different from the original. 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 ICD10 Diagnosis Term Ledger Clerk Utility Astigmatis Astigmatis Disease Active Overview : Univers m m 9-13 Formattin ity of 00:00: g of this [place] 00 note Medical might be Branch different from the original. ICD10 Diagnosis Term Ledger Clerk Utility Allergies, Adverse Reactions, Alerts Allergy Allergy Status Severity Reaction(s) Onset Inactive Treating Comm ents Source Name Type Date Date Clinician SPINACH DRUG Active N/V Univers INGREDI 5- ity of 00:00: [place] 00 Medical Branch Spinach Propensi Active Nausea Univers ty to and/or 12-14 ity of adverse Vomiting 00:00: [place] reaction 00 Medical s Branch MUSHROOM Allergy Active Low Rash 2021-[address] [facility] Center Mushroom Propensi Active Rash 2021-[address] [facility] ty to - [facility] adverse 00:00: Medical reaction 00 Center s PENICILL Allergy Active 2021-[address] [facility] IN 1- [facility] 00:[facility]: Medical 00 Center SULFA Allergy Active 2021-[address] [facility] (SULFONA -21 [facility] MIDE 00:00: Medical ANTIBIOT 00 Center [...] [facility] ins 03-21 [facility] 00:00: d 00 [facility] Center Sulfa DA Active U [facility] (Sulfona 03-21 [place] mide 00:00: d Antibiot 00 Medical ics) Center ibuprofe DA Active U [facility] n 03-21 [place] 00:00: d [facility] sulfamet DA Active SV [facility] hoxazole 03-21 [place] 00:00: d 00 [facility] trimetho DA Active SV 0 [facility] prim 03-21 [place] 00:00: d 00 Medical [place] penicill DA Active U [facility] in G 03-21 [place] 00:00: d 00 [facility] shellfis DA Active SV 0 [facility] h 03-21 [place] derived 00:00: d 00 [facility] spinach DA Active MO 0 [facility] 03-21 [place] 00:00: d 00 [facility] Ibuprofe Propensi Active Method i n ty to 11-15 st adverse 00:00: Hospita reaction 00 l s to drug Sulfa Propensi Active Methodi (Sulfona ty to 11-15 st mide adverse 00:00: Hospita Antibiot reaction 00 l ics) s to drug MUSHROOM DA Active MO [facility] S 10-09 [place] 00:00: d 00 [facility] Center PENICILL Drug Active Rash 2004- Univers INS Class 12-18 ity of 00:00: [place] 00 Medical Branch Penicill Propensi Active Rash Univer s ins ty to 12-18 ity of adverse 00:00: [place] reaction 00 Medical s Branch Social History Social Habit Start Date Stop Date Quantity Comments Source History of tobacco Cigarette Smoker University of use [place] [facility] History SDOH University o f Alcohol Std Drinks [place] [facility] History SDOH University o f Alcohol Binge [place] [facility] al Branch History SDOH Social Unive rsity of Connections Phone [place] M edical Branch History SDOH Social Unive rsity of Connections Get [place] Med ical Together Branch History SDOH Social Unive rsity of Connections [facility] [place] [facility] History SDOH Social Unive rsity of Connections [place] Medical Membership Branch History SDOH Social Unive rsity of Connections [place] Medical Meetings Branch Gender identity [facility] Sexual orientation [facility] History SDOH 2022-12-15 2022-12-15 1 University o f Alcohol Frequency 00:00:00 00:00:00 [place] M edical Branch History SDOH Social 2022-12-15 2022-12-15 3 Unive rsity of Connections Living 00:00:00 00:00:00 [place] [facility] History SDOH 2022-12-15 2022-12-15 0 University o f Physical Activity 00:00:00 00:00:00 [place] M edical DPW Branch History SDOH 2022-12-15 2022-12-15 0 University o f Physical Activity 00:00:00 00:00:00 [place] M edical MPS Branch History SDOH 2022-12-15 2022-12-15 5 University o f Financial 00:00:00 00:00:00 [place] [facility] History SDOH Food 2022-12-15 2022-12-15 1 Univers ity of Worry 00:00:00 00:00:00 [place] [facility] History SDOH Food 2022-12-15 2022-12-15 1 Univers ity of Scarcity 00:00:00 00:00:00 [place] [facility] History SDOH 2022-12-15 2022-12-15 2 University o f Transport Med 00:00:00 00:00:00 [place] Medic al Branch History SDOH 2022-12-15 2022-12-15 2 University o f Transport Non-Med 00:00:00 00:00:00 [place] M edical Branch History SDOH 2022-12-15 2022-12-15 2 University o f Housing Unable to 00:00:00 00:00:00 [place] M edical Pay Branch History SDOH 2022-12-15 2022-12-15 1 University o f Housing Places 00:00:00 00:00:00 [facility] cierra Lived Branch History SDOH 2022-12-15 2022-12-15 2 University o f Housing Homeless 00:00:00 00:00:00 [place] diceve Last Year Branch Exposure to 2022-12-04 2022-12-14 Not sure [facility] SARS-CoV-2 (event) 00:00:00 13:46:00 [facility] Tobacco use and 2022-12-14 2022-12-14 Smokeless tobacco Un iversity of exposure 00:00:00 00:00:00 non-user [facility] Tobacco Comment 2022-12-14 2022-12-14 Vap pen Universit y of 00:00:00 00:00:00 [facility] History of Social 2018-07-20 2018-07-[address] function 00:00:00 00:00:00 Hospital Alcohol intake 2017-11-15 2017-11-15 Current drinker [facility] 00:00:00 00:00:00 [facility] (finding) Alcohol Comment 2017-11-15 2017-11-15 occasional [facility] 00:00:00 00:00:00 Hospital Sex Assigned At [address] Jessica kes 00:00:00 00:00:00 [facility] Center Smoking Status Start Date Stop Date Source Ex-smoker 2022-12-14 00:00:00 2022-12-14 00:00:00 Universi ty [facility] Never smoked tobacco [facility] Medications Ordered Filled Start Stop Current Ordering Indication Dosage Frequency Signature Comments Components Source Medication Medication Date Date Medication? Clinician (SIG) Name Name melatonin 5 Yes 5mg Take 5 mg U nivers mg Chew 5-04 by mouth. ity of 15:57: [address] methocarbam Yes 500mg Take 1 Uni vers oL 500 mg 5-04 tablet by ity o f tablet 15:57: mouth 4 [place] [id number] (four) Medical times Branch daily. insulin Yes 20U 20 Units, Unive rs glargine 5-04 Subcutaneo ity o f (LANTUS 14:00: us, DAILY, Melissa mcbride U-100) 00 First dose Medical injection (after Branch 20 Units last modificati on) on Juliana 12/16/22 at 0900, Until Discontinu ed, Routine Diphenhydra 2022- No Take by Un jessika mine-Acetam - 05-04 mouth. ity o f inophen 13:17: 00:00 [place] (TYLENOL PM 26 :00 Medical EXTRA Branch STRENGTH) 25-500 mg Tab atorvastati Yes 40mg 40 mg, Univ ers n (LIPITOR) 5-04 Oral, QHS, it y of tablet 40 02:00: First dose [place] mg 00 on Tue Medical 12/15/22 at Branch 2100, Until Discontinu ed, Routine atorvastati 2022- Yes [id number] 40mg Take 1 Univers n 40 mg 12-16 06-04 tablet by ity of tablet 00:00: 04:59 mouth at [place] 00 :00 bedtime Medical for 30 Branch days. HYDROcodone 2022- Yes [id number] 1{tbl} Take 1 U nivers -acetaminop 12-16 05-12 tablet by it y of hen 5-325 00:00: 04:59 mouth [place] mg tablet 00 :00 every 6 Medical (six) Branch hours as needed for Pain (scale 4-6) for up to 7 days. Indication s: acute pain Sliding Yes Subcutaneo Univ ers Scale 5-03 us, TID ity of Insulin - 22:00: MEALS+HS, [place] as Lispro 00 First dose Medical (HumaLOG) on Tue Branch 12/15/22 at 1700, Until Discontinu ed, Routine insulin Yes 3U 3 Units, Univer s lispro -03 Subcutaneo ity of (human) 22:00: us, TID [place] (HumaLOG 00 MEALS, Medical U-100) First dose Branch injection 3 on Tue Units 12/15/22 at 1700, Until Discontinu ed, Routine Sliding 2022- No Subcutaneo Uni vers Scale 5-03 05-03 us, AC+HS, ity of Insulin-Reg 12:30: 20:24 First dose [place] ular 00 :27 on Tue Medical 12/15/22 at Branch 0730, Until Discontinu ed, Routine insulin 2022- No 10U 10 Units, Univ ers regular 12-15 Subcutaneo ity o f human 10:00: 09:25 us, ONCE, [place] (HUMULIN R) 00 :00 1 dose, On Me dical injection Tue12/15/22 Bran ch 10 Units at 0500, Routine
Indicatio n for insulin: Hyperglyce buck insulin 2022- No 10U 10 Units, [facility] ers glargine 12-15 Subcutaneo ity of (LANTUS 09:15: 14:03 us, BID, [place] U-100) 00 :38 First dose Medical injection on Tue Branch 10 Units 12/15/22 at 0415, Until Discontinu ed, Routine NaCl 0.9% 2022- No 1000mL at 50 [facility] [place] [facility] (NS) IV 12-15 mL/hr, IV ity of infusion 06:15: 05:33 Infusion, Dwight as 1,000 mL 00 :16 ONCE, 1 Medical dose, On Branch Tue12/15/22 at 0115, Routine potassium 2022- No 10meq 10 mEq, IV Univers chloride in 12-15 Piggyback, i ty of water 10 06:00: 08:56 ONCE, 1 [place] mEq/100 mL 00 :00 dose, On Medic al RTU 10 mEq Tue12/15/22 [facility] at 0100, Administer over 60 Minutes, 100 mL insulin 2022- No 10U 10 Units, [facility] [place] [facility] glargine 12-15 Subcutaneo ity of (LANTUS 05:15: 09:12 us, QHS, [place] U-100) 00 :04 First dose Medical injection on Tue Branch 10 Units 12/15/22 at 0015, Until Discontinu ed, Routine nicotine Yes 1{patch 1 Patch, Un jessika (NICODERM) 12-15 } Topical, ity o f 14 mg/24 hr 01:15: Administer [place] patch 1 00 over 24 Medical Patch Hours, Branch Q24H, First dose on Tue12/14/22 at 2015, Until Discontinu ed, Routine morpHINE (2 Yes 2mg 2 mg, Slow Univers mg/mL) 12-14 IV Push, ity of injection 2 23:20: Q4HPRN, [place] as mg 08 Starting Medical on [facility] 12/14/22 at 1820, Until Discontinu ed, Routine, Pain (scale 7-10) morpHINE (4 2022- No 2mg 2 mg, Slow Univers mg/mL) 12-14 IV Push, ity of injection 2 23:01: 23:20 Q4HPRN, [place] mg 25 :58 Starting Medical on [facility] 12/14/22 at 1801, Until [facility] 12/14/22 at 1820, Routine, Pain (scale 7-10) HYDROcodone Yes 1{tbl} 1 tablet, Univers -acetaminop 12-14 Oral, ity of hen (NORCO 23:01: Q6HPRN, [place] 5) 5-325 mg 04 Starting Medi cierra tablet 1 on [facility] tablet 12/14/22 at 1801, Until Discontinu ed, Routine, Pain (scale 4-6) NaCl 0.9% 2022- No 1000mL at 999 Uni vers (NS) bolus 12-14 mL/hr, ity of infusion 22:15: 21:33 1,000 mL, [place] as 1,000 mL 00 :00 IV Medical Infusion, [place] ONCE, 1 dose, On Tue12/14/22 at 1715, [place] enoxaparin Yes 40mg 40 mg, Unive rs (LOVENOX) 12-14 Subcutaneo ity of injection 22:00: us, DAILY, [place] 40 mg 00 First dose Medical on [facility] 12/14/22 at 1700, Until Discontinu ed, Routine morpHINE (4 2022- No 4mg 4 mg, Slow Univers mg/mL) 12-14 IV Push, ity of injection 4 22:00: 21:51 ONCE, 1 [place] mg 00 :00 dose, On Medical Tue12/14/22 Branch at 1700, STAT metoclopram 2022- No 10mg 10 mg, Uni vers adela HCl 12-14 Slow IV ity of (REGLAN) 21:30: 21:51 Push, [place] injection 00 :00 ONCE, 1 Medical 10 mg dose, On Branch Tue12/14/22 at 1630, [place] insulin 2022-0 2022- No 0U/kg/h 0-0.3 Unive rs regular in 5-02 05-03 Units/kg/h it y of 0.9 % NaCl 21:12: 05:28 r ?53.5 kg Geoff (MYXREDLIN) 53 :13 (0-16.05 Medi cierra 100 mL/hr), IV Branch unit/100 mL Infusion, (1 unit/mL) TITRATE, RTU IV Parameters infusion in Admin. Instr., Follow DKA Insulin Rate Adjustment Protocol, Starting on Tue12/14/22 at 1612
IMPORTANT: IF YOU ARE THE NURSE INITIATING THE INSULIN DRIP, in order to be able to adjust rate, change the dose from the MAR from the drop-down menu from units/kg/h r to units/hr. This will send the dosage to the IV pump in units/hr, which aligns with the insulin calculator and nursing practice.* * &nb sp;- Follow 'DKA Insulin Rate Adjustment Protocol' - Start insulin infusion at 0.1 units/kg /hr. When adjusting rate, do not increase rate above 0.3 units/kg/h our. If rate has been at 0.3 units/kg/h r for the past two hours AND blood glucose remains above 200 mg/dL in DKA and above 300 mg/dL in HHS without a drop of at least 10% in glucose levels, NHO for considerat ion of endocrinol ogy consult&nb sp;- Hold insulin and NHO STAT if potassium is less than 3.3 mEq/L.&nbs p;- NHO STAT if blood glucose less than 100 mg/dL or greater than 600 mg/dL or if blood glucose not decreased by 50 mg/dL in the first hour of insulin infusion.& nbsp;- Once blood glucose is less than or equal to 200 mg/dL in patient with DKA or blood glucose is less than or equal to 300 mg/dL in patient with HHS, change to fluids with dextrose.& nbsp;&nbsp ; - If during insulin infusion and on dextrose fluids blood glucose is less than 150 mg/dL in DKA or less than 200 mg/dL in HHS, NHO for increase in dextrose provided in continuous fluids.&nb sp;- Once AGAP less than 12, blood glucose less than 200 mg/dL, TCO2 greater than 15 x 2 and patient ready to eat, NHO for SubQ glargine order two hours before stopping insulin infusion.< br> D5W 0.45% 2022- No 1000mL at 200 Uni vers NaCl 12-14 05-03 mL/hr, ity of (1/2NS) IV 21:12: 05:27 1,000 mL, [place] infusion 42 :24 IV Medical 1,000 mL Infusion, Branch PRN - SEE INSTRUCTIO NS, Starting on Tue12/14/22 at 1612, Until Tue12/15/22 at 0027, [place] insulin 2022- No 10U 10 Units, Univ ers regular 12-14 IV ity of human 20:45: 20:04 Piggyback, [place] (HUMULIN R) 00 :00 ONCE, 1 Medic al injection dose, On Branch 10 Units Tue12/14/22 at 1545, Routine
Indicatio n for insulin: Hyperglyce buck NaCl 0.9% 2022- No 1000mL at 999 Uni vers (NS) bolus 12-1402 mL/hr, ity of infusion 20:15: 21:26 1,000 mL, [place] as 1,000 mL 00 :00 IV Medical Infusion, Branch ONCE, 1 dose, On Tue12/14/22 at 1515, [place] ondansetron 2022- No 4mg 4 mg, Slow Univers (ZOFRAN 12-14 IV Push, ity of (PF)) 19:45: 20:00 ONCE, 1 [place] injection 4 00 :00 dose, On Medi cierra mg Tue12/14/22 Branch at 1445, [place] Diphenhydra Yes Take by Uni vers mine-Acetam 12-14 mouth. ity of inophen 18:38: [place] (TYLENOL 37 Medical EXTRA Branch STRENGTH) 25-500 mg Tab melatonin 5 Yes 5mg Take 5 mg U nivers mg Chew 12-14 by mouth. ity of 18:38: [place] 37 Medical Branch medroxyPROG 0 2022- Yes [id number] 150mg Univers ESTERone 5-02 05-03 ity of (DEPO-PROVE 14:00: 01:59 [place] RA) syringe 00 :00 Medical 150 mg Branch medroxyPROG 2022-0 2022- Yes [id number] 150mg Univers ESTERone 12-1403 ity of (DEPO-PROVE 14:00: 01:59 [place] RA) syringe 00 :00 Medical 150 mg Branch medroxyPROG 0 2022- No [id number] 150mg 150 mg, Univers ESTERone 12-14 Intramuscu ity of (DEPO-PROVE 14:00: 19:12 lar, ONCE, [place] RA) syringe 00 :00 1 dose, On Me dical 150 mg 12/14/22 Branch at 0900, Routine medroxyPROG 2022- No [id number] 150mg Univers ESTERone 12-1402 ity of (DEPO-PROVE 14:00: 19:12 [place] RA) syringe 00 :00 Medical 150 mg Branch melatonin 5 0 Yes 5mg Take 5 mg U nivers mg Chew 4-25 by mouth. ity of 09:28: [address] melatonin 5 2022-0 Yes 5mg Take 5 mg U nivers mg Chew 4-25 by mouth. ity of 09:28: [address] melatonin 5 0 Yes 5mg Take 5 mg U nivers mg Chew 4-25 by mouth. ity of 09:28: [address] Branch HUMALOG 0 Yes Univers KWIKPEN 3-17 [...] unit/mL 00 Medical injection Branch HUMALOG 0 2022- No Univers KWIKPEN 3-17 05-04 ity of INSULIN 100 00:00: 00:00 [place] unit/mL 00 :00 Medical injection Branch fluticasone 3-0 Yes INSTILL Uni vers propionate 1-27 ONE (1) ity of 50 00:00: SPRAY INTO [place] mcg/actuati 00 EACH Medical on nasal NOSTRIL Branch spray ONCE DAILY FOR 10 DAYS. fluticasone 3-0 Yes INSTILL Uni vers propionate 1-27 ONE (1) ity of 50 00:00: SPRAY INTO [place] mcg/actuati 00 EACH Medical on nasal NOSTRIL Branch spray ONCE DAILY FOR 10 DAYS. fluticasone 3-0 Yes INSTILL Uni vers propionate 1-27 ONE (1) ity of 50 00:00: SPRAY INTO [place] mcg/actuati 00 EACH Medical on nasal NOSTRIL Branch spray ONCE DAILY FOR 10 DAYS. fluticasone 3-0 Yes INSTILL Uni vers propionate 1-27 ONE (1) ity of 50 00:00: SPRAY INTO [place] mcg/actuati 00 EACH Medical on nasal NOSTRIL Branch spray ONCE DAILY FOR 10 DAYS. fluticasone 3-0 Yes INSTILL Uni vers propionate 1-27 ONE (1) ity of 50 00:00: SPRAY INTO [place] mcg/actuati 00 EACH Medical on nasal NOSTRIL Branch spray ONCE DAILY FOR 10 DAYS. fluticasone 3-0 Yes INSTILL Uni vers propionate 1-27 ONE (1) ity of 50 00:00: SPRAY INTO [place] mcg/actuati 00 EACH Medical on nasal NOSTRIL Branch spray ONCE DAILY FOR 10 DAYS. acetaminoph 2021-08- No 650mg Take [address] en 09-06 11-18 tablets [facility] (TYLENOL) 00:00: 23:59 (650 mg Medi cierra 325 MG 00 :00 total) by Center tablet mouth every 6 (six) hours as needed for up to 360 days. acetaminoph 2021-08- No 650mg Take [address] en 09-06 11-18 tablets [facility] (TYLENOL) 00:00: 23:59 (650 mg Medi cierra 325 MG 00 :00 total) by Center tablet mouth every 6 (six) hours as needed for up to 360 days. acetaminoph 2021-08- No 650mg Take [address] en 09-06 11-18 tablets [facility] (TYLENOL) 00:00: 23:59 (650 mg Medi cierra 325 MG 00 :00 total) by Center tablet mouth every 6 (six) hours as needed for up to 360 days. benzonatate 2021-08- No 100mg Take [address] (TESSALON) 09-0630 capsule [facility] 100 MG 00:00: 23:59 (100 mg Medical capsule 00 :00 total) by Center mouth 3 (three) times daily as needed for Cough for up to 7 days. benzonatate 2021-08- No 100mg Take [address] (TESSALON) 09-06 capsule [facility] 100 MG 00:00: 23:59 (100 mg Medical capsule 00 :00 total) by Center mouth 3 (three) times daily as needed for Cough for up to 7 days. benzonatate 2021-08- No 100mg Take [address] (TESSALON) 09-06 capsule [facility] 100 MG 00:00: 23:59 (100 mg Medical capsule 00 :00 total) by Center mouth 3 (three) times daily as needed for Cough for up to 7 days. oseltamivir 2021-08- No 75mg Q.5D Take [...] under the [place] inph 00 skin in Medical the Branch morning. insulin Yes 15U inject 15 Unive rs lispro 100 3-15 Units ity of unit/mL 00:00: under the [place] inph 00 skin in [facility] the [place] morning. insulin 0 Yes 15U inject 15 Unive rs lispro 100 3-15 Units ity of unit/mL 00:00: under the [place] inph 00 skin in [facility] the [place] morning. insulin 0 Yes 15U inject 15 Unive rs lispro 100 3-15 Units ity of unit/mL 00:00: under the [place] inph 00 skin in [facility] the [place] morning. insulin 0 202- No 15U inject 15 Univ ers lispro 100 3-15 05-04 Units ity of unit/mL 00:00: 00:00 under the [place] inph 00 :00 skin in [facility] the [place] morning. Blood-Gluco 2020- Yes Use to Univ ers se Meter 1-09 check ity of (ONETOUCH 00:00: blood [place] VERIO FLEX 00 sugar 3X Medic al METER) Misc daily. Branch DX:E10.69 Blood-Gluco 2020- Yes Use to Univ ers se Meter 1-09 check ity of (ONETOUCH 00:00: blood [place] VERIO FLEX 00 sugar 3X Medic al METER) Misc daily. Branch DX:E10.69 Blood-Gluco 2020- Yes Use to Univ ers se Meter 1-09 check ity of (ONETOUCH 00:00: blood [place] VERIO FLEX 00 sugar 3X Medic al METER) Misc daily. Branch DX:E10.69 Blood-Gluco 2020- Yes Use to Univ ers se Meter 1-09 check ity of (ONETOUCH 00:00: blood [place] VERIO FLEX 00 sugar 3X Medic al METER) Misc daily. Branch DX:E10.69 Blood-Gluco 2020- Yes Use to Univ ers se Meter 1-09 check ity of (ONETOUCH 00:00: blood [place] VERIO FLEX 00 sugar 3X Medic al METER) Misc daily. Branch DX:E10.69 Blood-Gluco 2020-1 Yes Use to Univ ers se Meter 1-09 check ity of (ONETOUCH 00:00: blood [place] VERIO FLEX 00 sugar 3X Medic al METER) Misc daily. Branch DX:E10.69 Blood-Gluco 2020-1 Yes Use to Univ ers se Meter 1-09 check ity of (ONETOUCH 00:00: blood [place] [...] al STRIPS) daily. Branch strip DX:E10.69 Diphenhydra 2019- Yes Take by Uni vers mine-Acetam 1-06 mouth. ity of inophen 10:51: [place] (TYLENOL PM 02 Medical EXTRA Branch STRENGTH) 25-500 mg Tab Diphenhydra 2020- Yes Take by Uni vers mine-Acetam -06 mouth. ity of inophen 10:51: [place] (TYLENOL PM 02 Medical EXTRA Branch STRENGTH) 25-500 mg Tab Diphenhydra 2020- Yes Take by Uni vers mine-Acetam 1-06 mouth. ity of inophen 10:51: [place] (TYLENOL PM 02 Medical EXTRA Branch STRENGTH) 25-500 mg Tab Diphenhydra 2020- Yes Take by Uni vers mine-Acetam 1-06 mouth. ity of inophen 10:51: [place] (TYLENOL PM 02 Medical EXTRA Branch STRENGTH) 25-500 mg Tab Diphenhydra 2020-1 Yes Take by Uni vers mine-Acetam 1-06 mouth. ity of inophen 10:51: [place] (TYLENOL PM 02 Medical EXTRA Branch STRENGTH) 25-500 mg Tab Diphenhydra 2020-1 Yes Take by Uni vers mine-Acetam 1-06 mouth. ity of inophen 10:51: [place] (TYLENOL PM 02 Medical EXTRA Branch STRENGTH) 25-500 mg Tab Diphenhydra 2020-1 Yes Take by Uni vers mine-Acetam 1-06 mouth. ity of inophen 10:51: [place] (TYLENOL PM 02 Medical EXTRA Branch STRENGTH) 25-500 mg Tab insulin 2020- Yes [id number] 22U inject 22 Univers degludec 1-06 Units ity of (TRESIBA 00:00: under the [place] FLEXTOUCH 00 skin Medical U-100) 100 daily. Branch unit/mL (3 mL) InPn insulin 2019- Yes [id number] 5U inject Uni vers lispro-aabc 1-06 5-14 Units it y of 100 unit/mL 00:00: under the [place] InPn 00 skin 3 Medical (three) Branch times daily with meals. gabapentin 2019- Yes [id number] 300mg Take 1 Univers 300 mg 1-06 capsule by ity of capsule 00:00: mouth 2 [place] (two) Medical times Branch daily. Insulin 2019- Yes [id number] 1{each} inject 1 Univers [place], 1-06 Each under ity o f Disposable, 00:00: the skin [place] (PEN 00 before Medical NEEDLE) 31 meals and Bran ch gauge x at 3/16" Ndle bedtime. Use as directed insulin 2019- Yes [id number] 22U inject 22 Univers degludec 1-06 Units ity of (TRESIBA 00:00: under the [place] FLEXTOUCH 00 skin Medical U-100) 100 daily. Branch unit/mL (3 mL) InPn insulin 2019- Yes [id number] 5U inject Uni vers lispro-aabc 1-06 5-14 Units it y of 100 unit/mL 00:00: under the [place] In 00 skin 3 Medical (three) Branch times daily with meals. gabapentin 2019- Yes [id number] 300mg Take 1 Univers 300 mg 1-06 capsule by ity of capsule 00:00: mouth 2 [place] (two) Medical times Branch daily. Insulin 2019- Yes [id number] 1{each} inject 1 [facility] [place], 1-06 Each under ity o f Disposable, 00:00: [place] skin [place] (PEN 00 before Medical NEEDLE) 31 meals and Bran ch gauge x at 3/16" Ndle bedtime. Use as directed insulin 2019- Yes [id number] 22U inject 22 [facility] [place] 1-06 Units ity of ([place] skin Medical U-100) 100 daily. Branch unit/mL (3 mL) InPn insulin 2019- Yes [id number] 5U inject Uni vers lispro-aabc 1-06 5-14 Units it y of 100 unit/mL 00:00: [place] InPn 00 skin 3 Medical (three) Branch times daily with meals. gabapentin 2019-08 Yes [id number] 300mg Take 1 [facility] 300 mg 1-06 capsule by ity of capsule 00:00: mouth 2 (two) Medical times Branch daily. Insulin 2019-08 Yes [id number] 1{each} inject 1 [facility] [place], 1-06 Each under ity o f Disposable, 00:00: [place] (PEN 00 before Medical NEEDLE) 31 meals and Bran ch gauge x at 3/16" Ndle bedtime. Use as directed insulin 2019-08 Yes [id number] 22U inject 22 [facility] [place] 1-06 Units ity of ([place] 00:[place] skin Medical U-100) 100 daily. Branch unit/mL (3 mL) InPn insulin 2019-08 Yes [id number] 5U inject Uni vers lispro-aabc 1-06 5-14 Units it y of 100 unit/mL 00:00: under the [place] InPn 00 skin 3 Medical (three) Branch times daily with meals. gabapentin 2019-08 Yes [id number] 300mg Take 1 [facility] 300 mg 1-06 capsule by ity of capsule 00:00: mouth 2 [place] (two) Medical times Branch daily. Insulin 2019-08 Yes [id number] 1{each} inject 1 [facility] [place], 1-06 Each under ity o f Disposable, 00:00: [place] (PEN 00 before Medical NEEDLE) 31 meals and Bran ch gauge x at 3/16" Ndle bedtime. Use as directed insulin 2019- Yes [id number] 22U inject 22 [facility] [place] 1-06 Units ity of ([place] 00:[place] skin Medical U-100) 100 daily. Branch unit/mL (3 mL) InPn insulin 2019- Yes [id number] 5U inject Uni vers lispro-aabc 1-06 5-14 Units it y of 100 unit/mL 00:00: under the [place] InPn 00 skin 3 Medical (three) Branch times daily with meals. gabapentin 2019- Yes [id number] 300mg Take 1 [facility] 300 mg 1-06 capsule by ity of capsule 00:00: mouth 2 [place] 00 (two) Medical times Branch daily. Insulin 2019-08 Yes [id number] 1{each} inject 1 [facility] [place], 1-06 Each under ity o f Disposable, 00:00: [place] skin [place] (PEN 00 before Medical NEEDLE) 31 meals and Bran ch gauge x at 3/16" Ndle bedtime. Use as directed insulin 2019- Yes [id number] 22U inject 22 [facility] [place] 1-06 Units ity of ([place] 00:[place] skin Medical U-100) 100 daily. Branch unit/mL (3 mL) InPn insulin 2019-08 Yes [id number] 5U inject Uni vers lispro-aabc 1-06 5-14 Units it y of 100 unit/mL 00:00: under the [place] InPn 00 skin 3 Medical (three) Branch times daily with meals. gabapentin 2019-08 Yes [id number] 300mg Take 1 [facility] 300 mg 1-06 capsule by ity of capsule 00:00: mouth 2 (two) Medical times Branch daily. Insulin 2019-08 Yes [id number] 1{each} inject 1 [facility] [place], 1-06 Each under ity o f Disposable, 00:00: the [place] (PEN 00 before Medical NEEDLE) 31 meals and Bran ch gauge x at 3/16" Ndle bedtime. Use as directed insulin 2019- Yes [id number] 22U inject 22 [facility] 1-06 Units ity of ([place] 00:[place]: [place] skin Medical U-100) 100 daily. Branch unit/mL (3 mL) InPn insulin 2019- Yes [id number] 5U inject Uni vers lispro-aabc 1-06 5-14 Units it y of 100 unit/mL 00:00: under the [place] In 00 skin 3 Medical (three) Branch times daily with meals. gabapentin 2019- Yes [id number] 300mg Take 1 [facility] 300 mg 1-06 capsule by ity of capsule 00:00: mouth 2 (two) Medical times Branch daily. Insulin 2019-08 Yes [id number] 1{each} inject 1 [facility] [place], 1-06 Each under ity o f Disposable, 00:00: the skin [place] (PEN 00 before Medical NEEDLE) 31 meals and Bran ch gauge x at 3/16" Ndle bedtime. Use as directed insulin 2019- Yes [id number] 22U inject 22 [facility] 1-06 Units ity of ([place]ESIB[place] 00:[place]: [place] skin Medical U-100) 100 daily. Branch unit/mL (3 mL) InPn insulin 2019- Yes [id number] 5U inject Uni vers lispro-aabc 1-06 5-14 Units it y of 100 unit/mL 00:00: under the [place] InPn 00 skin 3 Medical (three) Branch times daily with meals. gabapentin 2019-08 Yes [id number] 300mg Take 1 [facility] 300 mg 1-06 capsule by ity of capsule 00:00: mouth 2 (two) Medical times Branch daily. Insulin 2019-08 Yes [id number] 1{each} inject 1 [facility] [place], 1-06 Each under ity o f Disposable, 00:00: the skin [place] (PEN 00 before Medical NEEDLE) 31 meals and Bran ch gauge x at 3/16" Ndle bedtime. Use as directed insulin 2019- Yes [id number] 22U inject 22 [facility] 1-06 Units ity of ([place] 00:[place]: [place] skin Medical U-100) 100 daily. Branch unit/mL (3 mL) InPn insulin 2019-08 Yes [id number] 5U inject Uni vers lispro-aabc 1-06 5-14 Units it y of 100 unit/mL 00:00: under the [place] InPn 00 skin 3 Medical (three) Branch times daily with meals. gabapentin 2019-08 Yes [id number] 300mg Take 1 [facility] 300 mg 1-06 capsule by ity of capsule 00:00: mouth 2 (two) Medical times Branch daily. Insulin 2019-08 Yes [id number] 1{each} inject 1 [facility] [place], 1-06 Each under ity o f Disposable, 00:00: the [place] (PEN 00 before Medical NEEDLE) 31 meals and Bran ch gauge x at 3/16" Ndle bedtime. Use as directed No known 2018-0 No No known [facility] [facility] No known 2018-0 No No known [facility] medications 4-[address] [facility] l Immunizations Ordered Immunization Filled Immunization Date Status Commen ts Source Name Name Meningococcal 2007-01-05 Completed [facility] of Polysaccharide 00:00:00 [place] [facility] (groups A, C, Y and Branc h W-135) conjugate vaccine (MCV4P) TDAP 2007-01-05 Completed [facility] of 00:00:00 [facility] Meningococcal 2007-01-05 Completed [facility] of Polysaccharide 00:00:00 [place] [facility] (groups A, C, Y and Branc h W-135) conjugate vaccine (MCV4P) TDAP 2007-01-05 Completed University of 00:00:00 [facility] Meningococcal 2007-01-05 Completed University of Polysaccharide 00:00:00 [place] [facility] (groups A, C, Y and Branc h W-135) conjugate vaccine (MCV4P) TDAP 2007-01-05 Completed University of 00:00:00 [facility] Meningococcal 2007-01-05 Completed University of Polysaccharide 00:00:00 [place] [facility] (groups A, C, Y and Branc h W-135) conjugate vaccine (MCV4P) TDAP 2007-01-05 Completed University of 00:00:00 [facility] Meningococcal 2007-01-05 Completed University of Polysaccharide 00:00:00 [place] [facility] (groups A, C, Y and Branc h W-135) conjugate vaccine (MCV4P) TDAP 2007-01-05 Completed University of 00:00:00 [facility] Meningococcal 2007-01-05 Completed University of Polysaccharide 00:00:00 [place] [facility] (groups A, C, Y and Branc h W-135) conjugate vaccine (MCV4P) TDAP 2007-01-05 Completed University of 00:00:00 [facility] Meningococcal 2007-01-05 Completed University of Polysaccharide 00:00:00 [place] [facility] (groups A, C, Y and Branc h W-135) conjugate vaccine (MCV4P) TDAP 2007-01-05 Completed University of 00:00:00 [facility] Meningococcal 2007-01-05 Completed University of Polysaccharide 00:00:00 [place] [facility] (groups A, C, Y and Branc h W-135) conjugate vaccine (MCV4P) TDAP 2007-01-05 Completed University of 00:00:00 [facility] Meningococcal 2007-01-05 Completed University of Polysaccharide 00:00:00 [place] [facility] (groups A, C, Y and Branc h W-135) conjugate vaccine (MCV4P) TDAP 2007-01-05 Completed University of 00:00:00 [facility] DTAP 1995-05-13 Completed University of 00:00:00 [facility] DTP 1995-05-13 Completed University of 00:00:00 [facility] MMR 1995-05-13 Completed University of 00:00:00 [facility] Polio (IPV/OPV) 1995-05-13 Completed Universit y of 00:00:00 [facility] DTAP 1995-05-13 Completed University of 00:00:00 [facility] DTP 1995-05-13 Completed University of 00:00:00 [facility] MMR 1995-05-13 Completed University of 00:00:00 [facility] Polio (IPV/OPV) 1995-05-13 Completed Universit y of 00:00:00 [facility] DTAP 1995-05-13 Completed University of 00:00:00 [facility] DTP 1995-05-13 Completed University of 00:00:00 [facility] MMR 1995-05-13 Completed University of 00:00:00 [facility] Polio (IPV/OPV) 1995-05-13 Completed Universit y of 00:00:00 [facility] DTAP 1995-05-13 Completed University of 00:00:00 [facility] DTP 1995-05-13 Completed University of 00:00:00 [facility] MMR 1995-05-13 Completed University of 00:00:00 [facility] Polio (IPV/OPV) 1995-05-13 Completed Universit y of 00:00:00 [facility] DTAP 1995-05-13 Completed University of 00:00:00 [facility] DTP 1995-05-13 Completed University of 00:00:00 [facility] MMR 1995-05-13 Completed University of 00:00:00 [facility] Polio (IPV/OPV) 1995-05-13 Completed Universit y of 00:00:00 [facility] DTAP 1995-05-13 Completed University of 00:00:00 [facility] DTP 1995-05-13 Completed University of 00:00:00 [facility] MMR 1995-05-13 Completed University of 00:00:00 [facility] Polio (IPV/OPV) 1995-05-13 Completed Universit y of 00:00:00 [facility] DTAP 1995-05-13 Completed University of 00:00:00 [place] [facility] DTAP 1995-05-13 Completed University of 00:00:00 [facility] DTP 1995-05-13 Completed University of 00:00:00 [facility] MMR 1995-05-13 Completed University of 00:00:00 [facility] Polio (IPV/OPV) 1995-05-13 Completed Universit y of 00:00:00 [facility] DTP 1995-05-13 Completed University of 00:00:00 [facility] MMR 1995-05-13 Completed University of 00:00:00 [facility] Polio (IPV/OPV) 1995-05-13 Completed Universit y of 00:00:00 [facility] DTAP 1995-05-13 Completed University of 00:00:00 [facility] DTP 1995-05-13 Completed University of 00:00:00 [facility] MMR 1995-05-13 Completed University of 00:00:00 [facility] Polio (IPV/OPV) 1995-05-13 Completed Universit y of 00:00:00 [facility] DTP 1992-11-05 Completed University of 00:00:00 [facility] HIB 4 Dose Schedule 1992-11-05 Completed Unive rsity of 00:00:00 [facility] MMR 1992-11-05 Completed University of 00:00:00 [facility] Polio (IPV/OPV) 1992-11-05 Completed Universit y of 00:00:00 [facility] DTP 1992-11-05 Completed University of 00:00:00 [facility] HIB 4 Dose Schedule 1992-11-05 Completed Unive rsity of 00:00:00 [facility] MMR 1992-11-05 Completed University of 00:00:00 [facility] Polio (IPV/OPV) 1992-11-05 Completed Universit y of 00:00:00 [facility] DTP 1992-11-05 Completed University of 00:00:00 [facility] HIB 4 Dose Schedule 1992-11-05 Completed Unive rsity of 00:00:00 [facility] MMR 1992-11-05 Completed University of 00:00:00 [place] [facility] Polio (IPV/OPV) 1992-11-05 Completed Universit y of 00:00:00 [facility] DTP 1992-11-05 Completed University of 00:00:00 [facility] HIB 4 Dose Schedule 1992-11-05 Completed Unive rsity of 00:00:00 [facility] MMR 1992-11-05 Completed University of 00:00:00 [facility] Polio (IPV/OPV) 1992-11-05 Completed Universit y of 00:00:00 [facility] DTP 1992-11-05 Completed University of 00:00:00 [facility] HIB 4 Dose Schedule 1992-11-05 Completed Unive rsity of 00:00:00 [facility] MMR 1992-11-05 Completed University of 00:00:00 [facility] Polio (IPV/OPV) 1992-11-05 Completed Universit y of 00:00:00 [facility] DTP 1992-11-05 Completed University of 00:00:00 [facility] HIB 4 Dose Schedule 1992-11-05 Completed Unive rsity of 00:00:00 [facility] MMR 1992-11-05 Completed University of 00:00:00 [facility] Polio (IPV/OPV) 1992-11-05 Completed Universit y of 00:00:00 [facility] DTP 1992-11-05 Completed University of 00:00:00 [facility] HIB 4 Dose Schedule 1992-11-05 Completed Unive rsity of 00:00:00 [facility] MMR 1992-11-05 Completed University of 00:00:00 [facility] Polio (IPV/OPV) 1992-11-05 Completed Universit y of 00:00:00 [facility] DTP 1992-11-05 Completed University of 00:00:00 [facility] HIB 4 Dose Schedule 1992-11-05 Completed Unive rsity of 00:00:00 [facility] MMR 1992-11-05 Completed University of 00:00:00 [facility] Polio (IPV/OPV) 1992-11-05 Completed Universit y of 00:00:00 [facility] DTP 1992-11-05 Completed University of 00:00:00 [facility] HIB 4 Dose Schedule 1992-11-05 Completed Unive rsity of 00:00:00 [facility] MMR 1992-11-05 Completed University of 00:00:00 [place] [facility] Polio (IPV/OPV) 1992-11-05 Completed Universit y of 00:00:00 [place] [facility] DTP 1992-01-17 Completed University of 00:00:00 [place] [facility] HIB 4 Dose Schedule 1992-01-17 Completed Unive rsity of 00:00:00 [place] [facility] Polio (IPV/OPV) 1992-01-17 Completed Universit y of 00:00:00 [place] [facility] DTP 1992-01-17 Completed University of 00:00:00 [place] [facility] HIB 4 Dose Schedule 1992-01-17 Completed Unive rsity of 00:00:00 [place] [facility] Polio (IPV/OPV) 1992-01-17 Completed Universit y of 00:00:00 [place] [facility] DTP 1992-01-17 Completed University of 00:00:00 [place] [facility] HIB 4 Dose Schedule 1992-01-17 Completed Unive rsity of 00:00:00 [place] [facility] Polio (IPV/OPV) 1992-01-17 Completed Universit y of 00:00:00 [place] [facility] DTP 1992-01-17 Completed University of 00:00:00 [place] [facility] HIB 4 Dose Schedule 1992-01-17 Completed Unive rsity of 00:00:00 [place] [facility] Polio (IPV/OPV) 1992-01-17 Completed Universit y of 00:00:00 [place] [facility] DTP 1992-01-17 Completed University of 00:00:00 [place] [facility] HIB 4 Dose Schedule 1992-01-17 Completed Unive rsity of 00:00:00 [place] [facility] Polio (IPV/OPV) 1992-01-17 Completed Universit y of 00:00:00 [place] [facility] DTP 1992-01-17 Completed University of 00:00:00 [place] [facility] HIB 4 Dose Schedule 1992-01-17 Completed Unive rsity of 00:00:00 [place] [facility] Polio (IPV/OPV) 1992-01-17 Completed Universit y of 00:00:00 [place] [facility] DTP 1992-01-17 Completed University of 00:00:00 [place] [facility] HIB 4 Dose Schedule 1992-01-17 Completed Unive rsity of 00:00:00 [place] [facility] Polio (IPV/OPV) 1992-01-17 Completed Universit y of 00:00:00 [place] [facility] DTP 1992-01-17 Completed University of 00:00:00 [place] [facility] HIB 4 Dose Schedule 1992-01-17 Completed Unive rsity of 00:00:00 [facility] Polio (IPV/OPV) 1992-01-17 Completed Universit y of 00:00:00 [facility] DTP 1992-01-17 Completed University of 00:00:00 [facility] HIB 4 Dose Schedule 1992-01-17 Completed Unive rsity of 00:00:00 [facility] Polio (IPV/OPV) 1992-01-17 Completed Universit y of 00:00:00 [facility] DTP 1991 Completed University of 00:00:00 [facility] HIB 4 Dose Schedule 1991 Completed Unive rsity of 00:00:00 [facility] Polio (IPV/OPV) 1991 Completed Universit y of 00:00:00 [facility] DTP 1991 Completed University of 00:00:00 [facility] HIB 4 Dose Schedule 1991 Completed Unive rsity of 00:00:00 [facility] Polio (IPV/OPV) 1991 Completed Universit y of 00:00:00 [facility] DTP 1991 Completed University of 00:00:00 [facility] HIB 4 Dose Schedule 1991 Completed Unive rsity of 00:00:00 [facility] Polio (IPV/OPV) 1991 Completed Universit y of 00:00:00 [facility] DTP 1991 Completed University of 00:00:00 [facility] HIB 4 Dose Schedule 1991 Completed Unive rsity of 00:00:00 [facility] Polio (IPV/OPV) 1991 Completed Universit y of 00:00:00 [facility] DTP 1991 Completed University of 00:00:00 [facility] HIB 4 Dose Schedule 1991 Completed Unive rsity of 00:00:00 [facility] Polio (IPV/OPV) 1991 Completed Universit y of 00:00:00 [facility] DTP 1991 Completed University of 00:00:00 [facility] HIB 4 Dose Schedule 1991 Completed Unive rsity of 00:00:00 [facility] Polio (IPV/OPV) 1991 Completed Universit y of 00:00:00 [place] [facility] DTP 1991 Completed University of 00:00:00 [place] [facility] HIB 4 Dose Schedule 1991 Completed Unive rsity of 00:00:00 [place] [facility] Polio (IPV/OPV) 1991 Completed Universit y of 00:00:00 [facility] DTP 1991 Completed University of 00:00:00 [place] [facility] HIB 4 Dose Schedule 1991 Completed Unive rsity of 00:00:00 [place] [facility] Polio (IPV/OPV) 1991 Completed Universit y of 00:00:00 [facility] DTP 1991 Completed University of 00:00:00 [facility] HIB 4 Dose Schedule 1991 Completed Unive rsity of 00:00:00 [facility] Polio (IPV/OPV) 1991 Completed Universit y of 00:00:00 [facility] DTP 1991 Completed University of 00:00:00 [facility] HIB 4 Dose Schedule 1991 Completed Unive rsity of 00:00:00 [facility] Polio (IPV/OPV) 1991 Completed Universit y of 00:00:00 [facility] DTP 1991 Completed University of 00:00:00 [place] [facility] HIB 4 Dose Schedule 1991 Completed Unive rsity of 00:00:00 [facility] Polio (IPV/OPV) 1991 Completed Universit y of 00:00:00 [facility] DTP 1991 Completed University of 00:00:00 [place] [facility] HIB 4 Dose Schedule 1991 Completed Unive rsity of 00:00:00 [facility] Polio (IPV/OPV) 1991 Completed Universit y of 00:00:00 [facility] DTP 1991 Completed University of 00:00:00 [place] [facility] HIB 4 Dose Schedule 1991 Completed Unive rsity of 00:00:00 [place] [facility] Polio (IPV/OPV) 1991 Completed Universit y of 00:00:00 [facility] DTP 1991 Completed University of 00:00:00 [place] [facility] HIB 4 Dose Schedule 1991 Completed Unive rsity of 00:00:00 [facility] Polio (IPV/OPV) 1991 Completed Universit y of 00:00:00 [facility] DTP 1991 Completed University of 00:00:00 [facility] HIB 4 Dose Schedule 1991 Completed Unive rsity of 00:00:00 [facility] Polio (IPV/OPV) 1991 Completed Universit y of 00:00:00 [facility] DTP 1991 Completed University of 00:00:00 [facility] HIB 4 Dose Schedule 1991 Completed Unive rsity of 00:00:00 [facility] DTP 1991 Completed University of 00:00:00 [facility] Polio (IPV/OPV) 1991 Completed Universit y of 00:00:00 [facility] HIB 4 Dose Schedule 1991 Completed Unive rsity of 00:00:00 [facility] Polio (IPV/OPV) 1991 Completed Universit y of 00:00:00 [facility] DTP 1991 Completed University of 00:00:00 [facility] HIB 4 Dose Schedule 1991 Completed Unive rsity of 00:00:00 [facility] Polio (IPV/OPV) 1991 Completed Universit y of 00:00:00 [facility] Vital Signs Vital Name Observation Time Observation Value Comments Source Heart rate 2022-12-16 17:00:00 103 /min [facility] Respiratory rate 2022-12-16 17:00:00 13 /min [facility] Oxygen saturation in 2022-12-16 17:00:00 97 /min [facility] Arterial blood by [facility] Pulse oximetry Branch Systolic blood 2022-12-16 16:05:00 129 mm[Hg] Univer sity of pressure [facility] Diastolic blood 2022-12-16 16:05:00 86 mm[Hg] Unive rsity of pressure [facility] Body temperature 2022-12-16 16:05:00 37 Tiffany [facility] Body weight 2022-12-16 09:00:00 56.473 kg [facility] BMI 2022-12-16 09:00:00 26.02 kg/m2 [facility] Body height 2022-12-15 09:41:00 147.3 cm [facility] Systolic blood 2022-12-14 19:09:00 116 mm[Hg] Univer sity of pressure [facility] Diastolic blood 2022-12-14 19:09:00 74 mm[Hg] Unive rsity of pressure [facility] Heart rate 2022-12-14 19:09:00 112 /min [facility] Body temperature 2022-12-14 19:09:00 36.5 Tiffany Univ ersity of [facility] Respiratory rate 2022-12-14 19:09:00 18 /min Univ ersity of [facility] Body weight 2022-12-14 19:09:00 53.524 kg Universi ty of [facility] BMI 2022-12-14 19:09:00 22.30 kg/m2 [facility] Systolic blood 2022-12-07 14:27:00 119 mm[Hg] Univer sity of pressure [facility] Diastolic blood 2022-12-07 14:27:00 83 mm[Hg] Unive rsity of pressure [facility] Heart rate 2022-12-07 14:27:00 101 /min [facility] Body temperature 2022-12-07 14:27:00 36.67 Tiffany Univ ersity of [facility] Body height 2022-12-07 14:27:00 154.9 cm [facility] [place] [facility] Body weight 2022-12-07 14:27:00 53.797 kg [facility] [place] [facility] BMI 2022-12-07 14:27:00 22.41 kg/m2 [facility] [place] [facility] WEIGHT 2022-07-07 04:06:00 52.3 kg WEIGHT 2022-07-06 [...] kg Systolic blood 2022-07-07 11:01:00 99 mm[Hg] [facility] Diastolic blood 2022-07-07 11:01:00 63 mm[Hg] [facility] Heart rate 2022-07-07 11:01:00 95 /min [facility] Body temperature 2022-07-07 11:01:00 35.78 Tiffany [facility] Respiratory rate 2022-07-07 11:01:00 18 /min [facility] Oxygen saturation in 2022-07-07 11:01:00 98 /min [facility] Arterial blood by Medical Ce [facility]ter Pulse oximetry Body weight 2022-07-07 04:06:00 52.3 kg [facility] BMI 2022-07-07 04:06:00 23.29 kg/m2 [facility] Body height 2022-07-05 05:00:00 149.9 cm [facility] Procedures Procedure Date / Time Performing Clinician Source Performed POCT GLUCOSE 2022-12-16 16:33:00 Redd [facility] (AUTOMATED) Medical Branch POCT GLUCOSE 2022-12-16 14:54:00 Redd [facility] (AUTOMATED) Medical Branch BASIC METABOLIC PANEL 2022-12-16 10:28:00 Candido cooley [facility] (NA, K, CL, CO2, Medical Branch GLUCOSE, BUN, CREATININE, CA) LIPID PANEL 2022-12-16 10:28:00 Wilmer Candido [facility] ([id number])(TOTAL Medical Branch CHOLESTEROL, TRIGLYCERIDES, HDL) CBC WITH DIFF 2022-12-16 10:28:00 Candido Guillen [facility] Medical Branch POCT GLUCOSE 2022-12-16 09:20:00 Redd [facility] (AUTOMATED) Medical Branch POCT GLUCOSE 2022-12-16 05:20:00 Redd [facility] (AUTOMATED) Medical Branch POCT GLUCOSE 2022-12-16 01:12:00 Redd [facility] (AUTOMATED) Medical Branch POCT GLUCOSE 2022-12-15 21:35:00 Redd [facility] (AUTOMATED) Medical Branch POCT GLUCOSE 2022-12-15 16:19:00 Redd [facility] (AUTOMATED) [facility] Branch BASIC METABOLIC PANEL 2022-12-15 14:03:00 Juan Miguel [facility] (NA, K, CL, CO2, Medical Branch GLUCOSE, BUN, CREATININE, CA) POCT GLUCOSE 2022-12-15 12:24:00 Redd [facility] (AUTOMATED) Medical Branch BASIC METABOLIC PANEL 2022-12-15 09:06:00 Juan Miguel [facility] (NA, K, CL, CO2, Medical Branch GLUCOSE, BUN, CREATININE, CA) POCT GLUCOSE 2022-12-15 09:05:00 Redd [facility] (AUTOMATED) Medical Branch POCT GLUCOSE 2022-12-15 05:19:00 Redd [facility] (AUTOMATED) [facility] BASIC METABOLIC PANEL 2022-12-15 04:07:00 Redd [facility] (NA, K, CL, CO2, Medical Branch GLUCOSE, BUN, CREATININE, CA) POCT GLUCOSE 2022-12-15 04:05:00 Redd [facility] (AUTOMATED) Medical Branch URINALYSIS 2022-12-15 03:19:00 Redd [facility] Branch POCT GLUCOSE 2022-12-15 03:06:00 Redd [facility] (AUTOMATED) Medical Branch POCT GLUCOSE 2022-12-15 02:07:00 Redd [facility] (AUTOMATED) [facility] Branch BETA HYDROXY-BUTYRATE 2022-12-15 01:36:00 [facility] BASIC METABOLIC PANEL 2022-12-15 01:36:00 Rodolfo Sparrow [facility] (NA, K, CL, CO2, Medical Branch GLUCOSE, BUN, CREATININE, CA) POCT GLUCOSE 2022-12-15 01:03:00 Rodolfo Sparrow [facility] (AUTOMATED) [facility] XR ANKLE 3+ VW RIGHT 2022-12-15 00:33:50 Rodolfo Sparrow [facility] XR FEMUR 2 VW RIGHT 2022-12-15 00:33:50 Rodolfo Sparrow [facility] XR TIBIA FIBULA 2 VW 2022-12-15 00:33:50 Rodolfo Sparrow [facility] Branch POCT GLUCOSE 2022-12-15 00:05:00 Redd [facility] (AUTOMATED) [facility] MRSA / MSSA SCREEN BY 2022-12-14 23:11:00 Rodolfo Sparrow [facility] PCR, NARES [facility] Branch POCT GLUCOSE 2022-12-14 23:06:00 Rodolfo Sparrow [facility] (AUTOMATED) [facility] Branch POCT GLUCOSE(AGE 2022-12-14 22:19:00 Ling Camarillo [facility] >30DAYS) Medical Branch POCT GLUCOSE 2022-12-14 22:18:00 Redd [facility] (AUTOMATED) [facility] Branch POCT GLUCOSE(AGE 2022-12-14 21:06:00 Ling Camarillo [facility] >30DAYS) Medical Branch POCT GLUCOSE 2022-12-14 21:02:00 Ling Camarillo [facility] (AUTOMATED) [facility] AC PANEL 21 + LACTIC 2022-12-14 19:57:00 Ling Camarillo [facility] ACID Medical Branch PHOSPHORUS 2022-12-14 19:56:00 Ling Camarillo [facility] MAGNESIUM 2022-12-14 19:56:00 Ling Camarillo [facility] COMP. METABOLIC PANEL 2022-12-14 19:56:00 Ling Camarillo [facility] ([id number]) [facility] Branch CBC WITH DIFF 2022-12-14 19:56:00 Ling Camarillo [facility] GLYCOSYLATED HEMOGLOBIN 2022-12-14 19:56:00 Ling Camarillo [facility] (A1C) [facility] POCT GLUCOSE 2022-12-14 19:41:00 Ling Camarillo [facility] (AUTOMATED) Medical Branch CONSENT/REFUSAL FOR 2022-12-14 19:15:29 [facility] Unassigned, No [facility] Name Medical Branch REFERRAL- 2022-12-14 05:01:00 Doctor Unassigned, No [facility] REQUEST/RESPONSE Name Medical [place] POCT TEST 2022-12-07 14:57:00 Dunia Rodriguez Un [facility] ASSIGNMENT OF BENEFITS 2022-12-07 14:07:37 Doctor Unassigned, No [facility] Name Medical Branch REFERRAL- 2022-11-10 05:01:00 Doctor Unassigned, No [facility] REQUEST/RESPONSE Name Medical [place] REFERRAL- 2022-10-29 05:01:00 Doctor Unassigned, No [facility] REQUEST/RESPONSE Name [facility] POCT-GLUCOSE METER 2022-07-07 11:04:00 Poppy Manzo [facility] POCT-GLUCOSE METER 2022-07-07 07:53:00 Shaylee Poppy [facility] CBC W/PLT COUNT & AUTO 2022-07-07 04:55:00 Carlos Gooden [facility] BASIC METABOLIC PANEL 2022-07-07 04:55:00 Johnny [facility] MAGNESIUM 2022-07-07 04:55:00 Antione Todd [facility] PHOSPHORUS 2022-07-07 04:55:00 Antione Todd [facility] CBC W/PLT COUNT & AUTO 2022-07-07 04:55:00 Carlos Gooden [facility] POCT-GLUCOSE METER 2022-07-06 21:36:00 [facility] POCT-[facility]SE METER 2022-07-06 17:39:00 Scooby Noman [facility] POCT-GLUCOSE METER 2022-07-06 16:38:00 Scooby [facility] POCT-GLUCOSE METER 2022-07-06 16:18:00 Scooby [facility] POCT-GLUCOSE METER 2022-07-06 10:56:00 Scooby [facility] BASIC METABOLIC PANEL 2022-07-06 08:10:00 Maryanne Meade [facility] BLOOD GAS, VENOUS 2022-07-06 08:10:00 Maryanne Meade [facility] MAGNESIUM 2022-07-06 08:10:00 [facility] PHOSPHORUS 2022-07-06 08:10:00 Maryanne Meade [facility] POCT-GLUCOSE METER 2022-07-06 07:40:00 Mayo Cisse [facility] BASIC METABOLIC PANEL 2022-07-06 05:07:00 Maryanne Meade [facility] BLOOD GAS, VENOUS 2022-07-06 05:07:00 Maryanne Meade [facility] MAGNESIUM 2022-07-06 05:07:00 Maryanne Meade [facility] PHOSPHORUS 2022-07-06 05:07:00 Maryanne Meade [facility] CBC W/PLT COUNT & AUTO 2022-07-06 05:07:00 Carlos Gooden [facility] CBC W/PLT COUNT & AUTO 2022-07-06 05:07:00 Carlos Gooden [facility] BASIC METABOLIC PANEL 2022-07-06 01:13:00 Maryanne Meade [facility] BLOOD GAS, VENOUS 2022-07-06 01:13:00 Maryanne Meade [facility] MAGNESIUM 2022-07-06 01:13:00 Maryanne Meade [facility] PHOSPHORUS 2022-07-06 01:13:00 [facility] POCT-GLUCOSE METER 2022-07-06 00:02:00 Mayo Cisse [facility] POCT-GLUCOSE METER 2022-07-05 23:04:[address] [facility] POCT-GLUCOSE METER 2022-07-05 22:12:00 Mayo Cisse [facility] BLOOD GAS, VENOUS 2022-07-05 21:27:00 [facility]UM 2022-07-05 21:17:00 Maryanne Meade [facility] PHOSPHORUS 2022-07-05 21:17:00 [facility] BASIC METABOLIC PANEL 2022-07-05 21:17:00 Maryanne Meade [facility] POCT-GLUCOSE METER 2022-07-05 21:15:00 Mayo Cisse [facility] POCT-GLUCOSE METER 2022-07-05 16:39:00 Bet[facility] POCT-GLUCOSE METER 2022-07-05 15:38:00 Betito [facility] POCT-GLUCOSE METER 2022-07-05 14:24:00 Betito [facility] POCT-GLUCOSE METER 2022-07-05 13:20:[address] [facility] POCT-GLUCOSE METER 2022-07-05 12:44:00 Betito [facility] BASIC METABOLIC PANEL 2022-07-05 12:34:00 Maryanne Meade [facility] BLOOD GAS, VENOUS 2022-07-05 12:34:00 Maryanne Meade [facility] MAGNESIUM 2022-07-05 12:34:00 Maryanne Meade [facility] PHOSPHORUS 2022-07-05 12:34:00 [facility] PO[facility]SE METER 2022-07-05 11:37:00 [facility] 2022-07-05 10:36:00 Betito [facility] POCT-GLUCOSE METER 2022-07-05 09:24:00 Betito [facility] POCT-GLUCOSE METER 2022-07-05 08:33:00 Betito [facility] BASIC METABOLIC PANEL 2022-07-05 08:23:00 Maryanne Meade [facility] BLOOD GAS, VENOUS 2022-07-05 08:23:00 Maryanne Meade [facility] MAGNESIUM 2022-07-05 08:23:00 Maryanne Meade [facility] PHOSPHORUS 2022-07-05 08:23:00 Maryanne Meade [facility] POCT-GLUCOSE METER 2022-07-05 07:32:00 [facility] 2022-07-05 07:22:00 [facility] POCT-GLUCOSE METER 2022-07-05 06:31:00 Usman [facility] POCT-GLUCOSE METER 2022-07-05 05:30[facility] 2022-07-05 04:44:00 [facility] SARS-COV2/INFLUENZA/RSV 2022-07-05 04:33[facility] HIGH SENSITIVITY 2022-07-05 04:32:00 [facility] CBC W/PLT COUNT & AUTO 2022-07-05 04:32:00 [facility]FFER[facility] TSH/FREE T4 IF 2022-07-05 04:32:00 Maryanne Meade [facility] INDICATED Center LACTIC ACID, VENOUS 2022-07-05 04:32:00 Maryanne Meade [facility] CBC W/PLT COUNT & AUTO 2022-07-05 04:32:00 Maryanne Meade [facility] BASIC METABOLIC PANEL 2022-07-05 04:32:00 Maryanne Meade [facility] BLOOD GAS, VENOUS 2022-07-05 04:32:00 Maryanne Meade [facility] MAGNESIUM 2022-07-05 04:32:00 Maryanne Meade [facility] PHOSPHORUS 2022-07-05 04:32:00 [facility] HEMOGLOBIN A1C 2022-07-05 04:32:00 Maryanne Meade [facility] POCT-GLUCOSE METER 2022-07-05 04:23:00 [facility] POCT-GLUCOSE METER 2022-07-05 02:40:00 [facility] POCT-GLUCOSE METER 2022-07-05 01:32:00 [facility] EKG-SCANNED 2022-07-05 00:00:00 Provider, Emre [facility] Plan of Care Planned Activity Planned Date Details Comments Source Future Scheduled 2023-04-[address] [facility] 00:00:00 (Season Ended) [code = [facility] INFLUENZA VACCINE (Season Ended)] Future Scheduled 2023-04-[address] [facility] Test 00:00:00 (Season Ended) [code = [facility] INFLUENZA VACCINE (Season Ended)] Future Scheduled 2022-08-[address] [facility] Test 00:00:00 (12+) [code = Medical Center DEPRESSION SCREENING (12+)] Future Scheduled 2022-08-[address] [facility] Test 00:00:00 (12+) [code = Medical Center DEPRESSION SCREENING (12+)] Future Scheduled 2022-08-[address] [facility] Test 00:00:00 (12+) [code = [facility] DEPRESSION SCREENING (12+)] Future Scheduled 2022-07-[address] [facility] 00:[facility]:00 measurement Medical Center (procedure) [code = 04316716] Future Scheduled 2022-07-[address] [facility] 00:00:00 measurement [facility] (procedure) [code = 51234417] Future Scheduled 2022-07-[address] [facility] 00:00:00 measurement [facility] (procedure) [code = 70288803] Future Scheduled 2022-04-15 INFLUENZA VACCINE (#1) [facility]00 [code = INFLUENZA Medical Ce nter VACCINE (#1)] Future Scheduled 2017-01-05 DTAP/TDAP/TD VACCINES [facility] 00:00:00 (7 - Td or Tdap) [code Medic al Center = DTAP/TDAP/TD VACCINES (7 - Td or Tdap)] Future Scheduled 2017-01-05 DTAP/TDAP/TD VACCINES [facility] 00:00:00 (7 - Td or Tdap) [code Medic al Center = DTAP/TDAP/TD VACCINES (7 - Td or Tdap)] Future Scheduled 2017-01-05 DTAP/TDAP/TD VACCINES [facility] 00:00:00 (7 - Td or Tdap) [code Medic al Center = DTAP/TDAP/TD VACCINES (7 - Td or Tdap)] Future Scheduled [address] [facility] [code = 363318364] Future Scheduled [address] [facility] 00:00[facility]00 [facility] (procedure) [code = 798370437] Future Scheduled [address] [facility] 00:00:00 [facility] cerv[facility] (procedure) [code = 146353967] Future Scheduled [address] [facility] 00:[facility]:00 (procedure) [code = [facility] 57712707] Future Scheduled [address] [facility] 00:00:00 (procedure) [code = Medical Center 22956136] Future Scheduled [address] [facility] 00:00:00 (procedure) [code = Medical Center 31789813] Future Scheduled 2009 HEPATITIS C SCREENING CH [...] (12+)] Future Scheduled [address] DIABETIC EYE EXAM [facility] 00:00:00 [code = DIABETIC EYE Medical Center EXAM] Future Scheduled [address] [facility] 00:[facility]:00 examination Medical Center (regime/therapy) [code = 312722910] Future Scheduled 2001 Urine screening for [facility] 00:00:00 protein (procedure) Medical Center [code = 813187917] Future Scheduled [address]ABETIC EYE EXAM [facility] 00:00:00 [code = DIABETIC EYE Medical Center EXAM] Future Scheduled [address] [facility] 00:[facility]:00 examination Medical Center (regime/therapy) [code = 424176396] Future Scheduled 2001 Urine screening for [facility] 00:00:00 protein (procedure) Medical Center [code = 760614720] Future Scheduled [address] [facility] 00:00:00 examination Medical Center (regime/therapy) [code = 500420466] Future Scheduled 2001 Urine screening for [facility] Test 00:00:00 protein (procedure) Medical Center [code = 739953295] Future Scheduled [address] DIABETIC EYE EXAM [facility] 00:00:00 [code = DIABETIC EYE Medical Center EXAM] Future Scheduled [address] [facility] Test 00:00:00 0-64 YRS (1 - PCV) Medical C enter [code = PNEUMOCOCCAL VACCINE 0-64 YRS (1 - PCV)] Future Scheduled [address] [facility] Test 00:00:00 0-64 YRS (1 - PCV) Medical C enter [code = PNEUMOCOCCAL VACCINE 0-64 YRS (1 - PCV)] Future Scheduled [address] [facility] Test 00:00:00 0-64 YRS (1 - PCV) Medical C enter [code = PNEUMOCOCCAL VACCINE 0-64 YRS (1 - PCV)] Future Scheduled 1991 COVID-19 VACCINE (#1[facility] 00:00:00 [code = COVID-[address] VACCINE (#1)] Future Scheduled 1991 COVID-19 VACCINE (#1) [facility] 00:00:00 [code = COVID-[address] VACCINE (#1)] Future Scheduled 1991 COVID-19 VACCINE (#1) [facility] 00:00:00 [code = COVID-[address] VACCINE (#1)] Encounters Start End Encounter Admission Attending Care Care Encounter Source Date/Time Date/Time Type Type Clinicians Facility Department ID 2022-12-20 2022-12-20 Outpatient R VINOD [facility] [id number] Univers 16:00:00 16:00:00 KM gan [facility] 2022-12-14 2022-12-16 Inpatient X [facility] [id number] Univers 14:13:00 15:52:00 GARRETT abdi f [facility] 2022-12-14 2022-12-16 Hospital Ling Camar[place] [facility] 1.2.84 0.114 [id number] Univers 14:13:00 15:52:00 Encounter Rodolfo Sparrow [id number] ity Garrett Bullard 4.2.7.2.686 [facility] [id number] [place] [id number] Branch 2022-12-14 2022-12-14 Outpatient R DUNIA RODRIGUEZ [facility] U TMB [id number] Univers 14:00:00 14:08:23 KENYATTA RODRIGUEZSOL ity of [facility] 2022-12-14 2022-12-14 Nurse Nurse, [facility] [id number] Univers 14:00:00 14:08:23 Visit Dunia Rodriguez 350.1.1 3.10 ity of [place] [id number] [place] dical [facility] [address] [facility] 2022-12-10 2022-12-10 Telephone Mackey, [facility] [id number] Univers 00:00:00 00:00:00 [facility] 350.1.13.10 it y of [place] 4.2.7.2.686 [place] NAOMI?BLEA [id number] [place] dic[address] OFFICE [facility] 2022-12-07 2022-12-07 Outpatient R KENYATTA RODRIGUEZSOL [facility] U TMB [id number] Univers 09:00:00 09:59:50 MONA-KENYATTA GARCIASOL ity [facility] 2022-12-07 2022-12-07 Office Porfirio [facility] 1.2.840.114 [id number] Univers 09:00:00 09:59:50 Visit sDunia 350.1.13.10 ity of [place] [phone] [place] dical [facility] 134 [facility] 2022-12-07 2022-12-07 Orders Doctor AMBER 1.2.840.114 [id number] Univers 00:00:00 00:00:00 Only Unassigned, HERNAN 350.1.13.[address] [facility] 4.2.7.2.686 [place] as [id number] [address] 2022-11-16 2022-11-16 Outpatient R DUNN-KENYATTA GARCIASOL [facility] U TMB [id number] Univers 14:30:00 14:30:00 DUNIA RODRIGUEZ ity of [facility] 2022-11-10 2022-11-10 Orders Doctor AMBER 1.2.840.114 [id number] Univers 00:00:00 00:00:00 Only Unassigned, HERNAN 350.1.13.10 ity of [facility] 4.2.7.2.686 [place] as [id number] [address] 2022-11-04 2022-11-04 [facility]phone [facility] 1.2.840.114 [id number] Univers 00:00:00 00:00:00 Neymar Yieldex 350.1.13.10 it [facility] 4.2.7.2.686 [place] NAOMI?BLEA [id number] [address] MEDICAL OFFICE BUILDING 2022-10-29 2022-10-29 Orders Doctor AMBER 1.2.840.114 [id number] Univers 00:00:00 00:00:00 Only Unassigned, HERNAN 350.1.13.10 ity of [facility] 4.2.7.2.686 [place] as [id number] [address] 2022-07-05 2022-07-07 Hospital ER [facility] [id number] [facility] 01:07:00 16:32:00 Encounter Mayo Cisse, [facility] 2022-07-05 2022-07-07 Inpatient [facility] Medical ICU 2 [id number] [facility] 01:07:00 16:32:00 [facility] 2022-07-05 2022-07-07 [facility] [id number] [facility] 01:07:00 16:32:00 [facility] 2020-12-12 2020-12-12 Outpatient R ALOK [facility] [id number] [facility] 13:30:00 13:30:00 NEYMAR gan [facility] 2020-06-20 2020-06-20 Office [facility] [id number] 10:27:33 12:32:24 Visit Neymar Sandoval 350.1.13.10 Vanessa 4.2.7.2.686 Indu [id number] [address] 2020-06-20 2020-06-20 Outpatient [facility] [id number] Univers 11:00:00 11:00:00 NEYAMR gan [facility] 2018-07-27 2018-07-27 Outpatient ROHAN Fuchs [facility] [id number] [facility] 10:52:00 10:52:00 [facility] 2018-06-14 2018-06-14 Outpatient ROHAN Fuchs [place] [id number] [place] 11:19:00 11:19:00 [facility] Yaima Hea [facility] 2018-05-23 2018-05-23 Outpatient ROHAN Yu W [id number] [place] 16:00:00 16:00:00 [facility] Results Test Description Test Time Test Comments Results Result Comments Source POCT GLUCOSE (AUTOMATED) 2022-12-16 16:34:30 Test Item Value Reference Range Interpretation Comme nts POCT GLU (test code = 0251311401) 268 mg/dL 70-110 H Lab Interpretation (test code = 80133-7) Abnormal [facility] GLUCOSE (AUTOMATED)2022-12-16 14:56:28 Test Item Value Reference Range Interpretation Comments POCT GLU (test code = 1970992545) 253 mg/dL 70-110 H Lab Interpretation (test code = Abnormal 18837-4) [facility] GLUCOSE (AUTOMATED)2022-12-16 09:22:01 Test Item Value Reference Range Interpretation Comments POCT GLU (test code = 5853166246) 219 mg/dL 70-110 H Lab Interpretation (test code = Abnormal 95475-5) [facility] GLUCOSE (AUTOMATED)2022-12-16 05:24:27 Test Item Value Reference Range Interpretation Comments POCT GLU (test code = 1192366116) 277 mg/dL 70-110 H Lab Interpretation (test code = Abnormal 32250-6) [facility] GLUCOSE (AUTOMATED)2022-12-16 01:22:50 Test Item Value Reference Range Interpretation Comments POCT GLU (test code = 8362816920) 176 mg/dL 70-110 H Lab Interpretation (test code = Abnormal 60254-0) [facility] GLUCOSE (AUTOMATED)2022-12-15 21:36:35 Test Item Value Reference Range Interpretation Comments POCT GLU (test code = 1242829696) 214 mg/dL 70-110 H Lab Interpretation (test code = Abnormal 78352-1) [facility] GLUCOSE (AUTOMATED)2022-12-15 16:19:59 Test Item Value Reference Range Interpretation Comments POCT GLU (test code = 8639062135) 183 mg/dL 70-110 H Lab Interpretation (test code = Abnormal 55432-8) [facility] GLUCOSE (AUTOMATED)2022-12-15 12:25:47 Test Item Value Reference Range Interpretation Comments POCT GLU (test code = 3211352264) 242 mg/dL 70-110 H Lab Interpretation (test code = Abnormal 04942-8) [facility] GLUCOSE (AUTOMATED)2022-12-15 09:09:50 Test Item Value Reference Range Interpretation Comments POCT GLU (test code = 2231979011) 295 mg/dL 70-110 H Lab Interpretation (test code = Abnormal 87503-9) [facility] GLUCOSE (AUTOMATED)2022-12-15 05:22:24 Test Item Value Reference Range Interpretation Comments POCT GLU (test code = 8198202151) 128 mg/dL 70-110 H Lab Interpretation (test code = Abnormal 53456-7) [facility] GLUCOSE (AUTOMATED)2022-12-15 04:10:00 Test Item Value Reference Range Interpretation Comments POCT GLU (test code = 2954444995) 97 mg/dL 70-110 Lab Interpretation (test code = Normal 34813-3) [facility] GLUCOSE (AUTOMATED)2022-12-15 03:10:48 Test Item Value Reference Range Interpretation Comments POCT GLU (test code = 5785217381) 103 mg/dL 70-110 Lab Interpretation (test code = Normal 19023-8) [facility] GLUCOSE (AUTOMATED)2022-12-15 02:12:04 Test Item Value Reference Range Interpretation Comments POCT GLU (test code = 5318896603) 118 mg/dL 70-110 H Lab Interpretation (test code = Abnormal 51418-3) [facility] GLUCOSE (AUTOMATED)2022-12-15 01:05:21 Test Item Value Reference Range Interpretation Comments POCT GLU (test code = 6444939920) 161 mg/dL 70-110 H Lab Interpretation (test code = Abnormal 99888-4) [facility] GLUCOSE (AUTOMATED)2022-12-15 00:11:30 Test Item Value Reference Range Interpretation Comments POCT GLU (test code = 9060160614) 196 mg/dL 70-110 H Lab Interpretation (test code = Abnormal 88765-5) [facility] GLUCOSE (AUTOMATED)2022-12-14 23:07:32 Test Item Value Reference Range Interpretation Comments POCT GLU (test code = 2025773400) 195 mg/dL 70-110 H Lab Interpretation (test code = Abnormal 10327-5) [facility] GLUCOSE (AUTOMATED)2022-12-14 22:19:16 Test Item Value Reference Range Interpretation Comments POCT GLU (test code = [id number]) 237 mg/dL 70-110 H Lab Interpretation (test code = Abnormal 29075-6) [facility] GLUCOSE(AGE >30DAYS)2022-12-14 22:19:00 Test Item Value Reference Range Interpretation Comments POCT Glu (age>30days) (test code = 237 mg/dL 70-110 A 3342) Lab Interpretation (test code = Abnormal 12599-2) [facility] GLUCOSE (AUTOMATED)2022-12-14 21:06:09 Test Item Value Reference Range Interpretation Comments POCT GLU (test code = 9374391347) 335 mg/dL 70-110 H Lab Interpretation (test code = Abnormal 00668-9) [facility] GLUCOSE(AGE >30DAYS)2022-12-14 21:06:00 Test Item Value Reference Range Interpretation Comments POCT Glu (age>30days) (test code = 335 mg/dL 70-110 A 3342) Lab Interpretation (test code = Abnormal 55891-5) [facility] GLUCOSE (AUTOMATED)2022-12-14 19:43:16 Test Item Value Reference Range Interpretation Comments POCT GLU (test code = 3859971677) 469 mg/dL 70-110 HH Lab Interpretation (test code = Abnormal 61721-2) [facility] 19:41:00 Test Item Value Reference Range Interpretation Comments POCT Glu (age>30days) (test code = 469 mg/dL 70-110 A 3342) Lab Interpretation (test code = Abnormal 34883-8) [facility] [id number] 14:57:00 Test Item Value Reference Range Interpretation Comments POCT PREG (test code = 1605) Negative On board controls acceptable with C Yes Line (test code = 3574) POCT PREG LOT # (test code = 3575) POCT PREG TEST DATE (test code = 3576) [facility] [id number] 14:57:00 Test Item Value Reference Range Interpretation Comments POCT PREG (test code = 1605) Negative On board controls acceptable with C Yes Line (test code = 3574) POCT PREG LOT # (test code = 3575) POCT PREG TEST DATE (test code = 3576) [id number]:01:24 Test Item Value Reference Range Interpretation Comments CULTURE (BEAKER) (test No growth in 5 days code = 1095) POC-Glucose [id number] 11:21:34 Test Item Value Reference Range Interpretation Comments POC-Glucose Meter (test 258 mg/dL 70-110 H : TE STED AT [facility] code = 1538) [address] [place] [address], [facility] 30: Director Consumer/Techni yessi ID = [id number] for CLAYTON PLUMMER IE Lab Interpretation (test Abnormal code = 58959-2) [facility] [id number] 11:21:34 Test Item Value Reference Range Interpretation Comments POC-Glucose Meter (test 258 mg/dL 70-110 H : TE STED AT [facility] code = 1538) [address] [place] [address], [facility] 30: Director Consumer/Techni yessi ID = [id number] for CLAYTON PLUMMER IE Lab Interpretation (test Abnormal code = 68889-3) [facility] [id number] 11:21:34 Test Item Value Reference Range Interpretation Comments POC-Glucose Meter (test 258 mg/dL 70-110 H : TE STED AT [facility] code = 1538) [address] [facility], 770 30: Director Consumer/Techni yessi ID = [id number] for CLAYTON PLUMMER IE Lab Interpretation (test Abnormal code = 91294-0) [facility] [id number] 11:21:34 Test Item Value Reference Range Interpretation Comments POC-GLUCOSE METER 258 mg/dL 70-110 H : [facility] 67[facility] (BEAKER) (test code [facility], = 1538) [address]: Director Consumer/Techni yessi ID = [id number] for MARGARITA ERAZO POCT-GLUCOSE [id number] 08:11:52 Test Item Value Reference Range Interpretation Comments POC-GLUCOSE METER 139 mg/dL 70-110 H : TESTED A T [facility] 6720 (BEAKER) (test code [facility], = 1538) [address]: Director Consumer/Techni yessi ID = [id number] for MARGARITA ERAZO BASIC METABOLIC [id number] 06:34:19 Test Item Value Reference Range Interpretation [...] not appl icable for dialysis patien ts Director Consumer ID - MEET [id number] 06:34:19 Test Item Value Reference Range Interpretation Comments MAGNESIUM (BEAKER) (test code = 1.8 mg/dL 1.6-2.6 627) Director Consumer ID - MEET [id number] 06:34:19 Test Item Value Reference Range Interpretation Comments PHOSPHORUS (BEAKER) (test code = 3.0 mg/dL 2.3-4.7 604) Director Consumer ID - MEET MCBC W/PLT COUNT & AUTO [id number] 05:12:05 Test Item Value Reference Range Interpretation [...] PERCENT (BEAKER) (test code = 2801) POCT-GLUCOSE [id number] 21:47:45 Test Item Value Reference Range Interpretation Comments POC-GLUCOSE METER 286 mg/dL 70-110 H : TESTED A T [facility] 6720 (BEAKER) (test code = [facility], 153) [address]: Director Consumer/Techni yessi ID = [id number] for LESLI DURAN, UDATU POCT-GLUCOSE [id number] 17:50:44 Test Item Value Reference Range Interpretation Comments POC-GLUCOSE METER 68 mg/dL 70-110 L : TESTED A T [facility] 6720 (BEAKER) (test code = [facility], 1538) [address]: Director Consumer/Techni yessi ID = [id number] for MARQUIS TIAN, RAJI POCT-GLUCOSE [id number] 16:49:27 Test Item Value Reference Range Interpretation Comments POC-GLUCOSE METER 72 mg/dL 70-110 : TESTED A T [facility] 6720 (BEAKER) (test code = [facility], 153) [address]: Director Consumer/Techni yessi ID = [id number] for Arcelia porras (contract), Tiffany david POCT-GLUCOSE [id number] 16:31:02 Test Item Value Reference Range Interpretation Comments POC-GLUCOSE METER 52 mg/dL 70-110 L : TESTED A T [facility] 6720 (BEAKER) (test code = NATALIE Gayle [facility], 1538) [address]: Director Consumer/Techni yessi ID = [id number] for Arcelia porras (contract), Tiffany david POCT-GLUCOSE [id number] 11:09:38 Test Item Value Reference Range Interpretation Comments POC-GLUCOSE METER 197 mg/dL 70-110 H : TESTED A T [facility] 6720 (BEAKER) (test code [facility], = 1538) [address]: Director Consumer/Techni yessi ID = [id number] for Arcelia porras (contract), Tiffany david BLOOD GAS, [id number] 09:37:51 Test Item Value Reference Range Interpretation [...] (test code = 1819) 21.0 BASIC METABOLIC [id number] 09:05:04 Test Item Value Reference Range Interpretation [...] not appl icable for dialysis patien ts Director Consumer ID - JUSTEN [id number] 08:57:01 Test Item Value Reference Range Interpretation Comments MAGNESIUM (BEAKER) 2.0 mg/dL 1.6-2.6 Specimen slightly (test code = 627) hemolyzed Director Consumer ID - JUSTEN [id number] 08:57:01 Test Item Value Reference Range Interpretation Comments PHOSPHORUS (BEAKER) 2.4 mg/dL 2.3-4.7 Specimen slightly (test code = 604) hemolyzed Director Consumer ID - JUSTEN LPOCT-GLUCOSE [id number] 07:53:47 Test Item Value Reference Range Interpretation Comments POC-GLUCOSE METER 274 mg/dL 70-110 H : TESTED A T [facility] 6720 (BEAKER) (test code [facility], = 1538) 236[address]: Director Consumer/Techni yessi ID = [id number] for Arcelia porras (contract), Tiffany david CBC W/PLT COUNT & AUTO [id number] 06:02:22 Test Item Value Reference Range Interpretation [...] 0.00-1.00 PERCENT (BEAKER) (test code = 2801) [id number] 05:53:00 Test Item Value Reference Range Interpretation Comments MAGNESIUM (BEAKER) 2.4 mg/dL 1.6-2.6 Specimen slightly (test code = 627) hemolyzed Director Consumer ID - PIAYA [id number] 05:53:00 Test Item Value Reference Range Interpretation Comments PHOSPHORUS (BEAKER) 2.1 mg/dL 2.3-4.7 L Specimen slightly (test code = 604) hemolyzed Director Consumer ID Gabrielle CAMPUZANO LBASIC METABOLIC [id number] 05:53:00 Test Item Value Reference Range Interpretation [...] not appl icable for dialysis patien ts Director Consumer ID - JUSTEN LBLOOD GAS, [id number] 05:26:22 Test Item Value Reference Range Interpretation [...] (test code = 1819) 21.0 BASIC METABOLIC [id number] 02:03:34 Test Item Value Reference Range Interpretation [...] not appl icable for dialysis patien ts Director Consumer ID - JUSTEN [id number] 01:45:29 Test Item Value Reference Range Interpretation Comments MAGNESIUM (BEAKER) (test code = 1.7 mg/dL 1.6-2.6 627) Director Consumer ID Gabrielle CAMPUZANO [id number] 01:45:29 Test Item Value Reference Range Interpretation Comments PHOSPHORUS (BEAKER) (test code = 2.4 mg/dL 2.3-4.7 604) Director Consumer ID - JUSTEN LEONARD GAS, [id number] 01:25:28 Test Item Value Reference Range Interpretation [...] (BEAKER) (test code = 1819) 21.0 POCT-GLUCOSE [id number] 00:15:44 Test Item Value Reference Range Interpretation Comments POC-GLUCOSE METER 100 mg/dL 70-110 : TESTED A T [facility] 6720 (BEAKER) (test code = [facility], 1538) [address]: Director Consumer/Techni yessi ID = [id number] for DA VIS FELICE POCT-GLUCOSE [id number] 23:15:21 Test Item Value Reference Range Interpretation Comments POC-GLUCOSE METER 101 mg/dL 70-110 : TESTED A T [facility] 6720 (BEAKER) (test code = [facility], 1538) 49574: Director Consumer/Techni yessi ID = [id number] for Al i, Poppy POCT-GLUCOSE [id number] 22:24:36 Test Item Value Reference Range Interpretation Comments POC-GLUCOSE METER 73 mg/dL 70-110 : TESTED A T [facility] 6720 (BEAKER) (test code = [facility], 1538) 44240: Director Consumer/Techni yessi ID = [id number] for JO S, FELICE BASIC METABOLIC [id number] 22:00:23 Test Item Value Reference Range Interpretation [...] not appl icable for dialysis patien ts Director Consumer ID - [id number] 22:00:23 Test Item Value Reference Range Interpretation Comments MAGNESIUM (BEAKER) (test code = 1.8 mg/dL 1.6-2.6 627) Director Consumer ID - [id number] 22:00:23 Test Item Value Reference Range Interpretation Comments PHOSPHORUS (BEAKER) (test code = 2.8 mg/dL 2.3-4.7 604) Director Consumer ID - AZBLOOD GAS, [id number] 21:35:45 Test Item Value Reference Range Interpretation [...] (BEAKER) (test code = 1819) 21.0 POCT-GLUCOSE [id number] 21:26:21 Test Item Value Reference Range Interpretation Comments POC-GLUCOSE METER 92 mg/dL 70-110 : TESTED A T [facility] 6720 (BEAKER) (test code = [facility], 1538) [address]15[address]: Director Consumer/Techni yessi ID = [id number] for Poppy Tobin POCT-GLUCOSE [id number] 16:51:00 Test Item Value Reference Range Interpretation Comments POC-GLUCOSE METER 176 mg/dL 70-110 H : TESTED A T [facility] 6720 (BEAKER) (test code = [facility], 1538) 471[address]: Director Consumer/Techni yessi ID = [id number] for Daisy Pascal POCT-GLUCOSE [id number] 15:50:57 Test Item Value Reference Range Interpretation Comments POC-GLUCOSE METER 174 mg/dL 70-110 H : TESTED A T [facility] 6720 (BEAKER) (test code = [facility], 1538) 29326: Director Consumer/Techni yessi ID = [id number] for IB RAHIM, SERKALEM BASIC METABOLIC [id number] 14:41:08 Test Item Value Reference Range Interpretation [...] decreased 60-89 G3a Mildl y to moderately 45- 59 G3b Moderately to s everely 30-44 G4 Severl y decreased 15-29 G5 Kidney failure <15Reported eGF R is based on the CKD-EPI 2020 equation that d oes not use a race coefficientEsti mated GFR is not as accur ate as Creatinine Carmen isaac in predicting glom erular filtration rate . Estimated GFR is not appl icable for dialysis patien ts Director Consumer ID - [id number] 14:39:22 Test Item Value Reference Range Interpretation Comments MAGNESIUM (BEAKER) (test code = 2.1 mg/dL 1.6-2.6 627) Director Consumer ID - [id number] 14:39:22 Test Item Value Reference Range Interpretation Comments PHOSPHORUS (BEAKER) (test code = 1.8 mg/dL 2.3-4.7 L 604) Director Consumer ID - MARCOPOCT-GLUCOSE [id number] 14:36:37 Test Item Value Reference Range Interpretation Comments POC-GLUCOSE METER 171 mg/dL 70-110 H : TESTED A T [facility] 6720 (BEAKER) (test code = [facility] [employer] [facility], 153) [address]: Director Consumer/Techni yessi ID = [id number] for IB RAHIM, SERKALEM POCT-GLUCOSE [id number] 13:31:59 Test Item Value Reference Range Interpretation Comments POC-GLUCOSE METER 127 mg/dL 70-110 H : TESTED A T [facility] 6720 (BEAKER) (test code = [facility] [employer] [facility], 153) [address]: Director Consumer/Techni yessi ID = [id number] for IB RAHIM, SERKALEM POCT-GLUCOSE [id number] 12:55:21 Test Item Value Reference Range Interpretation Comments POC-GLUCOSE METER 165 mg/dL 70-110 H : TESTED A T [facility] 6720 (BEAKER) (test code = [facility], 1538) [address]: Director Consumer/Techni yessi ID = [id number] for Daisy Pascal BLOOD GAS, [id number] 12:48:29 Test Item Value Reference Range Interpretation [...] (BEAKER) (test code = 1819) 21.0 POCT-GLUCOSE [id number] 12:33:46 Test Item Value Reference Range Interpretation Comments POC-GLUCOSE METER 174 mg/dL 70-110 H : TESTED A T [facility] 6720 (BEAKER) (test code = [facility], 153) 28524: Director Consumer/Techni yessi ID = [id number] for IB RAHIM, SERKALEM POCT-GLUCOSE [id number] 10:48:24 Test Item Value Reference Range Interpretation Comments POC-GLUCOSE METER 189 mg/dL 70-110 H : TESTED A T [facility] 6720 (BEAKER) (test code = [facility], 153) 11951: Director Consumer/Techni yessi ID = [id number] for IB RAHIM, SERKALEM HEMOGLOBIN [id number] 10:33:22 Test Item Value Reference Range Interpretation [...] 5.7- 6.4% indicates increased risk for diabetes (prediabetes)."Director Consumer ID - ADMPOCT- GLUCOSE [id number] 09:37:04 Test Item Value Reference Range Interpretation Comments POC-GLUCOSE METER 211 mg/dL 70-110 H : TESTED A T [facility] 6720 (BEAKER) (test code = [facility] [place], 1538) [address]: Director Consumer/Techni yessi ID = [id number] for IB DICKSON ELIZONDOM [id number] 09:19:13 Test Item Value Reference Range Interpretation Comments PHOSPHORUS (BEAKER) (test code = 1.2 mg/dL 2.3-4.7 LL 604) Director Consumer ID - CHARLIE GBASIC METABOLIC [id number] 09:08:43 Test Item Value Reference Range Interpretation [...] not appl icable for dialysis patien ts Director Consumer ID - CHARLIE [id number] 09:05:45 Test Item Value Reference Range Interpretation Comments MAGNESIUM (BEAKER) (test code = 2.1 mg/dL 1.6-2.6 627) Director Consumer ID - CHARLIE GPOCT-GLUCOSE [id number] 08:48:23 Test Item Value Reference Range Interpretation Comments POC-GLUCOSE METER 233 mg/dL 70-110 H : TESTED A T [facility] 6720 (BEAKER) (test code = [facility], 1538) 623[address]: Director Consumer/Techni yessi ID = [id number] for Daisy Pascal BLOOD GAS, [id number] 08:38:28 Test Item Value Reference Range Interpretation [...] (BEAKER) (test code = 1819) 21.0 Screen, [id number] 08:10:39 Test Item Value Reference Range Interpretation Comments Preg Test, Ur (test code = 2-1) Negative Negative Lab Interpretation (test code = Normal 68983-4) [facility], [id number] 08:10:39 Test Item Value Reference Range Interpretation Comments Preg Test, Ur (test code = 2112-1) Negative Negative Lab Interpretation (test code = Normal 50624-1) [facility], [id number] 08:10:39 Test Item Value Reference Range Interpretation Comments Preg Test, Ur (test code = 2112-1) Negative Negative Lab Interpretation (test code = Normal 68903-1) [facility] WomenPREG[facility]Y SCREEN, [id number] 08:10:39 Test Item Value Reference Range Interpretation Comments TEST URINE (BEAKER) (test Negative Negative code = 583) POCT-GLUCOSE [id number] 07:44:37 Test Item Value Reference Range Interpretation Comments POC-GLUCOSE METER 222 mg/dL 70-110 H : TESTED A T [facility] 6720 (BEAKER) (test code = [facility], 1538) 70866: Director Consumer/Techni yessi ID = [id number] for IB RAHIM, SERKALEM POCT-GLUCOSE [id number] 06:44:09 Test Item Value Reference Range Interpretation Comments POC-GLUCOSE METER 245 mg/dL 70-110 H : TESTED A T [facility] 6720 (BEAKER) (test code = [facility], 1538) 32269: Director Consumer/Techni yessi ID = [id number] for DA VIS, FELICE TSH/FREE T4 IF [id number] 06:40:23 Test Item Value Reference Range Interpretation Comments THYROID STIMULATING HORMONE 0.958 uIU/mL 0.350-4.940 (BEAKER) (test code = 772) Director Consumer ID - CHARLIE GBASIC METABOLIC [id number] 06:01:56 Test Item Value Reference Range Interpretation [...] not appl icable for dialysis patien ts Director Consumer ID - CHARLIE GSARS-CoV2/Influenza/RSV [id number] 05:53:01 Test Item Value Reference Interpretation Comments Range SARS-COV2/RT-PCR Negative Negative The SARS-Co V-2 (test code = target nucleic 30962-2) acids are not detected in [facility] specimen. Negat alexys results do not preclude SARS-C oV-2 infection and should not be u sed as the sole bas is for patient management decisions. Nega tive results must be combined with clinical observations, patient history , and epidemiolog ical information. A false negative result may occu r if a specimen is improperly collected, transported or handled. This S ARS CoV-2 test is a rapid, real-levon e RT-PCR test intended for e qualitative detection of nucleic acid fr om SARS-CoV-2 in a nasopharyngeal swab specimen [facility] from individual s suspected of COVID-19 by the ir healthcare provider. Influenza A RT-PCR Positive Negative AA The Flu A target (test code = [place] 27266-6) detected in [facility] specimen. Influenza B RT-PCR Negative Negative The Flu B target (test code = [place] 51485-7) not detected in this specimen. RSV by RT-PCR (test Negative Negative The RSV target code = 13391-6) nucleic acid s are not detected in [...] the Act. Fact Sheet for Healthcare Providers:https://w [employer]/Docu ments/Xpert%20Xpres s%20SARS%20CoV-2/Fa ct%20Sheets/302-390 2%36WGST-QXY-3%20HE ALTHCARE%20PROVIDER S%20FACT%20SHEET.pd f Fact Sheet for Healthcare Patients:https://[employer]/Docum ents/Xpert%20Xpress %20SARS%20Cov-2/Fac t%20Sheets/302-3801 %15QOYT-JAX-6%20PAT IENT%20FACT%20SHEET .pdf Lab Interpretation Abnormal (test code = 51068-2) [facility] [id number] 05:53:01 Test Item Value Reference Interpretation Comments Range SARS-COV2/RT-PCR Negative Negative The SARS-Co V-2 (test code = target nucleic 78847-3) acids are not detected in [facility] specimen. Negat alexys results do [...] a nasopharyngeal swab specimen collec james from individual s suspected of COVID-19 by the healthcare provider. Influenza A RT-PCR Positive Negative AA The Flu A target (test code = [place] [address]-8) detected in [facility] specimen. Influenza B RT-PCR Negative Negative The Flu B target (test code = [place] 48119-8) not detected in this specimen. RSV by RT-PCR (test Negative Negative The RSV target code = 46921-1) nucleic acid s are not detected in [...] SARS-CoV-2/Flu/RSV by their healthcare provider. Results from [facility] Xpert Xpress SARS-CoV-2/Flu/RSV test should be correlated [...] the Act. Fact Sheet for Healthcare Providers:https://w [employer]/Docu ments/Xpert%20Xpres s%20SARS%20CoV-2/Fa ct%20Sheets/302-390 2%90IZGE-ESK-0%20HE ALTHCARE%20PROVIDER S%20FACT%20SHEET.pd f Fact Sheet for Healthcare Patients:https://[employer]/Docum ents/Xpert%20Xpress %20SARS%20Cov-2/Fac t%20Sheets/302-3801 %20WSVE-WRC-2%20PAT IENT%20FACT%20SHEET .pdf Lab Interpretation Abnormal (test code = 32096-3) [facility]/RSV [id number] 05:53:01 Test Item Value Reference Interpretation Comments Range SARS-COV2/RT-PCR Negative Negative The SARS-Co V-2 (test code = target nucleic 87433-4) acids are not detected in thi s specimen. Negat alexys results do not preclude SARS-C oV-2 infection and should not be u sed as the sole bas is for patient management decisions. Nega tive results must be combined with clinical observations, patient history , and epidemiolog ical information. A false negative result may occu r if a specimen is improperly collected, transported or handled. This S ARS CoV-2 test is a rapid, real-levon e RT-PCR test intended for th e qualitative detection of nucleic acid fr om SARS-CoV-2 in a nasopharyngeal swab specimen collec james from individual s suspected of COVID-19 by the ir healthcare provider. Influenza A RT-PCR Positive Negative AA The Flu A target (test code = [place] [address]-4) detected in thi s specimen. Influenza B RT-PCR Negative Negative The Flu B target (test code = [place] 54352-0) not detected in this specimen. RSV by RT-PCR (test Negative Negative The RSV target code = 22112-7) nucleic acid s are not detected in [...] the Act. Fact Sheet for Healthcare Providers:https://w ww.[employer]Docu ments/Xpert%20Xpres s%20SARS%20CoV-2/Fa ct%20Sheets/302-390 2%40CDYR-CZY-8%20HE ALTHCARE%20PROVIDER S%20FACT%20SHEET.pd f Fact Sheet for Healthcare Patients:https://ww w.[employer]/Docum ents/Xpert%20Xpress %20SARS%20Cov-2/Fac t%20Sheets/302-3801 %26VPJT-DKS-8%20PAT IENT%20FACT%20SHEET .pdf Lab Interpretation Abnormal (test code = 97067-8) [facility]FLUENZA/RSV [id number] 05:53:01 Test Item Value Reference Range Interpretation Comments SARS-COV2/RT-PCR Negative Negative The SARS-Co V-2 target (test code = nucleic acids a re not 7259705) detected in thi s specimen. Negat alexys [...] individuals adrian pected of COVID-[address] [facility] ide. INFLUENZA A RT-PCR Positive Negative AA The Flu A target nucleic (test code = acids are detec james in 19100918) this specimen. INFLUENZA B RT-PCR Negative Negative The Flu B target nucleic (test code = acids are not d etected in 19100919) this specimen. RSV RT-PCR (test Negative Negative The RSV tar get nucleic code = 0468040) acids are no t detected in this [...] Xpress SARS-CoV-2/Flu/RSV by their healthcareprovider. Results from [facility] Xpert Xpress SARS-CoV-2/Flu/RSV test should be correlated [...] of the Act.Fact Sheet for Healthcare Providers:https ://www.[employer]/Documents/Xpert%20Xpress%20SARS%20CoV-2/Fact%20Sheets/302-390 2%47ZVPC-GDD-3%20HEALTHCARE%20PROVIDERS%20FACT%20SHEET.pdfFact Sheet for Healthcare Patients:https://www.[employer]/Docum ents/Xpert%20Xpress%20SARS%20Cov-2/Fact%20Sheets/3023801%37OSMV-LZD-9%20PATIENT %20FACT%20SHEET.pdfPOCT-GLUCOSE [id number] 05:47:16 Test Item Value Reference Range Interpretation Comments POC-GLUCOSE METER 199 mg/dL 70-110 H : TESTED Sveta Rodriguez [facility] 6720 (MARILYNN) (test code = [facility] [place], 1538) [address]: Director Consumer/Techni yessi ID = [id number] for Elissa Lewis [id number] 05:44:41 Test Item Value Reference Range Interpretation Comments MAGNESIUM (BEAKER) (test code = 1.5 mg/dL 1.6-2.6 L 627) Director Consumer ID Gabrielle GUERRA [id number] 05:44:41 Test Item Value Reference Range Interpretation Comments PHOSPHORUS (BEAKER) (test code = 1.7 mg/dL 2.3-4.7 L 604) Director Consumer ID - CHARLIE GLACTIC ACID, [id number] 05:40:57 Test Item Value Reference Range Interpretation Comments LACTATE BLOOD VENOUS (2) (BEAKER) 0.86 mmol/L 0.50-2.20 (test code = 2872) Director Consumer ID - CHARLIE GCBC W/PLT COUNT & AUTO [id number] 05:35:44 Test Item Value Reference Range Interpretation [...] (test code = 2801) HIGH SENSITIVITY TROPONIN [id number] 05:26:53 Test Item Value Reference Range Interpretation Comments HIGH SENSITIVITY < pg/ml See_Comment [Automated message] TROPONIN I (test code = The system which 3217447) generated this result transmitted ref erence range: <=17. Th e reference range was not used to interpr et this result as normal/abnormal . Director Consumer ID - CHARLIE GThe [employer] STAT High Sensitivity Troponin-I results should be used in conjunction with other diagnostic information such as ECG, clinical observations and information, and patient symptoms to aid in the diagnosis of ID.BLOOD GAS, [id number] 05:11:35 Test Item Value Reference Range Interpretation [...] (BEAKER) (test code = 1819) 21.0 POCT-GLUCOSE [id number] 04:35:37 Test Item Value Reference Range Interpretation Comments POC-GLUCOSE METER 195 mg/dL 70-110 H : TESTED A T [facility] [address] ([facility]) (test code = [facility], 1538) [id number]: Director Consumer/Techni yessi ID = [id number] for DA SADI MEDINAN POCT-GLUCOSE [id number] 03:28:15 Test Item Value Reference Range Interpretation Comments POC-GLUCOSE METER 201 mg/dL 70-110 H : TESTED A T [facility] [address] ([facility]) (test code = [facility], 1538) 69501: Director Consumer/Techni yessi ID = [id number] for Ez enwugo, Homa POCT-GLUCOSE [id number] 01:43:58 Test Item Value Reference Range Interpretation Comments POC-GLUCOSE METER 184 mg/dL 70-110 H : TESTED A T [facility] [address] ([facility]) (test code = [facility], 1538) [id number]: Director Consumer/Techni yessi ID = [id number] for Cindy Campos
[2022-12-17] MEDS ORDERED: HYDROCODONE/APAP 7.5/325 MG TAB ONE (04:51)
--- NOTE | 2022-12-17 05:46 | EDPHYS ---
Physician Documentation [facility] Name: Cristina Wheeler Age: 32 yrs Sex: Female : 1990 Arrival Date: 12/17/2022 Time: 04:34 Bed 16 Private MD: ED Physician Neymar Lee HPI: 12/17 07:34 This 32 yrs old Female presents to ER via EMS with complaints of right leg pain. kdr 07:34 Patient lost her balance and for a brief period of time was bearing weight on her right kdr leg which has a prior comminuted tib-fib fracture. That increase the pain in her leg and so she sought evaluation for possible worsening of her splinted limb. She is otherwise nontoxic-appearing. Onset: The symptoms/episode began/occurred suddenly, just prior to arrival. Severity of symptoms: At their worst the symptoms were moderate in the emergency department the symptoms have improved mildly. The patient has not experienced similar symptoms in the past. The patient has been recently seen at the [facility] Emergency Department, last week. Historical: - Allergies: 04:43 flu medication; kd3 04:43 PENICILLINS; kd3 04:43 Spinach; kd3 04:43 Sulfa (Sulfonamide Antibiotics); kd3 - PMHx: 04:43 Arthritis; neuropathy; Diabetes - IDDM; kd3 - Immunization history:: Adult Immunizations. - Social history:: Smoking status: Reported history of juuling and/or vaping. ROS: 07:34 Constitutional: Negative for fever, chills, and weight loss, Eyes: Negative for injury, kdr pain, redness, and discharge, ENT: Negative for injury, pain, and discharge, Neck: Negative for injury, pain, and swelling, Cardiovascular: Negative for chest pain, palpitations, and edema, Respiratory: Negative for shortness of breath, cough, wheezing, and pleuritic chest pain, Abdomen/GI: Negative for abdominal pain, nausea, vomiting, diarrhea, and constipation, Back: Negative for injury and pain, : Negative for injury, bleeding, discharge, and swelling, Skin: Negative for injury, rash, and discoloration, Neuro: Negative for headache, weakness, numbness, tingling, and seizure activity. Psych: Negative for depression, anxiety, suicide ideation, homicidal ideation, and hallucinations, Allergy/Immunology: Negative for hives, rash, and allergies, Endocrine: Negative for neck swelling, polydipsia, polyuria, polyphagia, and marked weight changes, Hematologic/Lymphatic: Negative for swollen nodes, abnormal bleeding, and unusual bruising. 07:34 MS/extremity: Positive for injury or acute deformity, decreased range of motion, pain, tenderness, of the right leg. Exam: 07:34 Constitutional: This is a well developed, well nourished patient who is awake, alert, kdr and in no acute distress. Head/Face: Normocephalic, atraumatic. 07:34 Musculoskeletal/extremity: Extremities: grossly normal except: noted in the lateral aspect of right calf, right ankle, right calf, right Achilles, medial aspect of right calf, right [place] and anterior aspect of right ankle: decreased ROM, pain, swelling. Vital Signs: 04:41 BP 128 / 83; Pulse 75; Resp 16; Temp 97.9(O); Pulse Ox 100% ; Weight 52.62 kg; Height 4 kd3 ft. 10 in. ; 06:04 BP 128 / 75; Pulse 103; Resp 16; Pulse Ox 100% on R/A; ll3 04:41 Body Mass Index 24.24 (52.62 kg, 147.32 cm) kd3 MDM: 05:46 Patient medically screened. kdr 07:34 Data reviewed: vital signs, nurses notes, lab test result(s), radiologic studies. kdr 12/17 04:39 Order name: Tib Fib Right XRAY kdr Administered Medications: 04:47 Drug: Hydrocodone-Acetaminophen PO (7.5 mg-325 mg) 1 tabs Route: PO; ll3 06:03 Follow up: Response: No adverse reaction; Pain is decreased ll3 Disposition Summary: 12/17/22 05:46 Discharge Ordered Location: Home kdr Problem: an acute exacerbation kdr Symptoms: have improved kdr Condition: Stable kdr Diagnosis - Closed comminuted distal right tibia and fibula fractures stable from initial visit kdr Followup: kdr - With: Private Physician - When: 2 - 3 days - Reason: If symptoms return, Further diagnostic work-up, Recheck today's complaints, Continuance of care, Re-evaluation by your physician Followup: kdr - With: Mor Sarabia MD - When: 1 - 2 days - Reason: If symptoms return, Further diagnostic work-up, Recheck today's complaints, Continuance of care, Re-evaluation by your physician Discharge Instructions: - Discharge Summary Sheet kdr - Tibial and Fibular Fractures kdr Forms: - Medication Reconciliation Form kdr - Thank You Letter kdr Signatures: Dispatcher [employer] Neymar Sellers MD MD kdr Neelima Ascencio RN RN ll3 Brittany Ritter RN RN kd3
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
[2022-12-17 06:09] VITALS: TEMP 97.9; O2SAT 100
[2022-12-17 06:11] VITALS: BP 128/75
--- NOTE | 2022-12-19 18:04 | RAD REPORT ---
EXAM DESCRIPTION: RAD - Tib Fib Right - 12/17/2022 4:54 am CLINICAL HISTORY: PAIN COMPARISON: None FINDINGS: There are mildly displaced, mildly comminuted fractures of the distal right tibial and fib ular shafts. Overlying casting material obscures the fine lung details. There is no additional eviden ce for fracture. The soft tissues are normal. There is no foreign body. IMPRESSION: Distal right tibi al and fibular shaft fractures. Electronically signed by: Manuel Teresa MD 12/17/2022 5:37 AM CDT Due to temporary technical issues with the PACS/Fluency reporting system, reports are being signed by the in house radiologists without review as a courtesy to insure prompt reporting. The interpreting radiologist is fully responsible for the content of the report.
== END 2022-12-17 06:04 | disposition home or self-care (01) ==
LOC: ER 04:34
DX: S82.391A Other fracture of lower end of right tibia, initial encounter for closed fracture (principal); S82.831A Other fracture of upper and lower end of right fibula, initial encounter for closed fracture; Z88.0 Allergy status to penicillin; Z88.2 Allergy status to sulfonamides; Z88.8 Allergy status to other drugs, medicaments and biological substances; Z91.018 Allergy to other foods
CPT/HCPCS: 99284

== ENCOUNTER 2023-04-04 14:29 | Emergency (ER) | payer OTHER ==
--- OUTSIDE RECORDS SUMMARY | 2023-04-04 14:37 | XMS REPORT | Continuity of Care Document ---
:1990 Author Organization [facility] t Address [address] [facility] [place] [address] Care Team Providers Name Role Phone Provider, Unknown Primary Care Physician Unavailable AVIS VANEGAS Attending Clinician Unavailable LUDY BOYD Attending Clinician Unavailable Ludy Boyd MD Attending Clinician Minna WALTER Attending Clinician Unavailable Minna Colvin Attending Clinician Doctor Unassigned, [place] Attending Clinician Unavailable Avis Pereira Attending Clinician DUNIA RODRIGUEZ Attending Clinician Unavailable DUNIA RODRIGUEZ Attending Clinician Unavailable Nurse, [facility] Attending Clinician Unavailable Km Sharif S Attending Clinician KM BROCK Attending Clinician Unavailable Neymar Reeder Attending Clinician Unavailable Amy MILTON, Cynthia Avila Attending Clinician GARRETT BULLARD Attending Clinician Unavailable Ling Camarillo DO Attending Clinician Rodolfo Sparrow DO Attending Clinician Alok MILLER, Neymar Carver Attending Clinician Usman MILLER, Yulia Attending Clinician Betito MILLER, Mayo Thomas Attending Clinician [phone] Scooby MILLER, Noman Attending Clinician Shaylee MILLER, Poppy Attending Clinician POPPY MANZO Attending Clinician Unavailable NEYMAR CAVAZOS Attending Clinician Unavailable Jeffry Fuchs Attending Clinician Unavailable Linda Yu Attending Clinician Unavailable Minna WALTER Admitting Clinician Unavailable Physician, No Primary or Family Admitting Clinician UnavailLUDY Tam Admitting Clinician Unavailable Ludy Boyd MD Admitting Clinician RODOLFO SPARROW Admitting Clinician Unavailable Rodolfo Sparrow DO Admitting Clinician YULIA GONZALEZ Admitting Clinician Unavailable Payers Payer Name Policy Type Policy Number Effective Date Expiration Date S [facility] [id number] 2019 PLUS 00:00:00 [place]ICAID OF [place] [id number] 2019 00:00:00 Problems Condition Condition Condition Status Onset Resolution Last Treating Co mments Source Name Details Category Date Date Treatment Clinician Date DKA, type DKA, type Disease Active Uni vers 1, not at 1, not at 5-02 ity of goal goal 00:00: [place] 00 Medical Branch DKA DKA Disease Recurre 2021-[address] [facility] (diabetic (diabetic nce 1-21 [facility] ketoacidos ketoacidos 00:00: Me dical is) is) 00 Center Asthma Asthma Disease Active 2020-08 Overview: [facility] s 2-06 Formattin ity of 00:00: g of this [place] 00 note Medical might be Branch different from the original. Last Assessmen t & Plan: Formattin g of this note might be different from the original. Stable.[place] aguilar currently vapes. She states she is trying to cut back.Ment ions that she no longer smokes marijuana or smoke cigarette s. 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 ICD10 Diagnosis Term Regional Geodetic Advisor Utility Astigmatis Astigmatis Disease Active Overview : [facility] m m 04-27 Formattin ity of 00:00: g of this [place] 00 note Medical might be Branch different from the original. ICD10 Diagnosis Term Regional Geodetic Advisor Utility Allergies, Adverse Reactions, Alerts Allergy Allergy Status Severity Reaction(s) Onset Inactive Treating Comm ents Source Name Type Date Date Clinician Penicill DA Active U [facility] ins 01-14 [place] 00:00: Health 00 are [place] Sulfa DA Active [facility] (Sulfona 01-14 [place] mide 00:00: [facility] Antibiot 00 are ics) [place] FLU DRUG Active Other-Cmnt Univer s VACCINE 12-17 ity of 2011-07( 00:00: [place] 3 Medical YR+)(PF) Branch OSELTAMI DRUG Active Other-Cmnt Univ ers VIR INGREDI 12-17 ity of 00:00: [place] 00 Medical Branch Oseltami Propensi Active Other - See Pt state s Univers vir ty to comments 12-17 it makes ity of adverse 00:00: her go [place] reaction 00 into DKA Medica l s Branch SPINACH DRUG Active N/V Univers INGREDI 12-14 ity of 00:00: [place] 00 Medical Branch Spinach Propensi Active Nausea Univers ty to and/or 12-14 ity of adverse Vomiting 00:00: [place] reaction 00 Medical s Branch MUSHROOM Allergy Active Low Rash 2021[facility] Mushroom Propensi Active Rash 2021- [facility] adverse 00:00: Medical reaction 00 Center s MUSHROOM DRUG Active Low Rash 2021-08 Univers INGREDI 09-06 ity of 00:00: [place] 00 Medical Branch PENICILL Allergy Active 2021-[address] IN [...] l ics) s Branch SULFA Drug Active High Rash Univers (SULFONA Class 9-01 ity of MIDE 00:00: [...] drug MUSHROOM DA Active [facility] S 2-25 [place] 00:[facility]: d 00 Medical Center PENICILL Drug Active Rash Univers INS Class 5-06 ity of 00:00: [place] 00 Medical Branch Penicill Propensi Active Rash Univer s ins ty to 5-06 ity of adverse 00:00: [place] reaction 00 Medical s Branch Social History Social Habit Start Date Stop Date Quantity Comments Source History of tobacco Cigarette Smoker University of use [place] [facility] History SDOH University o f Alcohol Std Drinks [place] [facility] History SDOH University o f Alcohol Binge [place] Medic al Branch History SDOH Social Unive rsity of Connections [facility] edical Branch History SDOH Social Unive rsity of Connections [facility] Med ical Together Branch History SDOH Social Unive rsity of Connections [facility] Medical Branch History SDOH Social Unive rsity of Connections [place] Medical Membership Branch History SDOH Social Unive rsity of Connections [place] Medical Meetings Branch Gender identity [facility] Tobacco use and 2023-03-02 2023-03-02 User of smokeless Un iversity of exposure 00:00:00 00:00:00 tobacco [facility] Tobacco Comment 2023-03-02 2023-03-02 Vape pen Universit y of 00:00:00 00:00:00 [place] [facility] Exposure to 2022-12-24 2023-01-03 Not sure University of SARS-CoV-2 (event) 00:00:00 15:02:00 [place] [facility] History SDOH 2022-12-15 2022-12-15 1 University o f Alcohol Frequency 00:00:00 00:00:00 [facility] edical Branch History SDOH Social 2022-12-15 2022-12-15 3 Unive rsity of Connections Living 00:00:00 00:00:00 [place] [facility] History SDOH 2022-12-15 2022-12-15 0 University o f Physical Activity 00:00:00 00:00:00 [place] M edical DPW Branch History SDOH 2022-12-15 2022-12-15 0 University o f Physical Activity 00:00:00 00:00:00 [place] M edical MPS Branch History SDOH 2022-12-15 2022-12-15 5 University o f Financial 00:00:00 00:00:00 [place] [facility] History SDOH Food 2022-12-15 2022-12-15 1 Univers ity of Worry 00:00:00 00:00:00 [place] [facility] History SDOH Food 2022-12-15 2022-12-15 1 Univers ity of Scarcity 00:00:00 00:00:00 [place] [facility] History SDOH 2022-12-15 2022-12-15 2 University o f Transport Med 00:00:00 00:00:00 [place] Medic al Branch History SDOH 2022-12-15 2022-12-15 2 University o f Transport Non-Med 00:00:00 00:00:00 [place] M edical Branch History SDOH 2022-12-15 2022-12-15 2 University o f Housing Unable to 00:00:00 00:00:00 [place] M edical Pay Branch History SDOH 2022-12-15 2022-12-15 1 University o f Housing Places 00:00:00 00:00:00 [place] Medi cierra Lived Branch History SDOH 2022-12-15 2022-12-15 2 [place] o f Housing Homeless 00:00:00 00:00:00 [place] Me dical Last Year Branch History of Social 2018-07-20 2018-07-[address] function 00:00:00 00:00:00 Hospital Alcohol intake 2017-11-15 2017-11-15 Current drinker [facility] 00:00:00 00:00:00 of alcohol Hospital (finding) Alcohol Comment 2017-11-15 2017-11-15 occasional [facility] 00:00[facility]00 Hospital Sex Ass[birth year] At [birth year] MELISSA Eckert kerae 00:00:00 00:00:00 [facility] Center Smoking Status Start Date Stop Date Source Ex-smoker 2023-03-02 00:00:00 2023-03-02 00:00:00 [facility] Never smoked tobacco [facility] Medications Ordered Filled Start Stop Current Ordering Indication Dosage Frequency Signature Comments Components Source Medication Medication Date Date Medication? Clinician (SIG) Name Name cephALEXin No 500mg 500 mg, Un jessika (KEFLEX) 03-17 Oral, ity of capsule 500 23:00: 22:03 ONCE, 1 [place] mg 00 :00 dose, On [facility] 03/17/23 Branch at 1800, LORETTA
Re ason for Anti-Infec tive: Documented Infection< br>Documen james Infection Site: Skin / Soft Tissue
Duration of Therapy: 10 days ibuprofen No 400mg 400 mg, Uni vers (IBU) 03-17 Oral, ity of tablet 400 22:00: 22:03 ONCE, 1 [place] mg 00 :00 dose, On [facility] 03/17/23 Branch at 1700, LORETTA cephALEXin 2022- Yes [id number] 500mg Take 1 Univers (KEFLEX) 03-17 [id number] capsule by it y of 500 mg 00:00: 04:59 mouth in [place] capsule 00 :00 the Medical morning Branch and 1 capsule at noon and 1 capsule in the evening. Do all this for 10 days. cephALEXin 2022- Yes [id number] 500mg Take 1 Univers (KEFLEX) 03-17 [id number] capsule by it y of 500 mg 00:00: 04:59 mouth in [place] capsule 00 :00 the Medical morning Branch and 1 capsule at noon and 1 capsule in the evening. Do all this for 10 days. cephALEXin 2022- Yes [id number] 500mg Take 1 Univers (KEFLEX) 03-17 [id number] capsule by it y of 500 mg 00:00: 04:59 mouth in [place] capsule 00 :00 the Medical morning Branch and 1 capsule at noon and 1 capsule in the evening. Do all this for 10 days. medroxyPROG 2022- No [id number] 150mg Univers ESTERone 03-08 ity of (DEPO-PROVE 22:00: 21:12 [facility]) syringe 00 :00 Medical 150 mg [place] medroxyPROG 2022- No [id number] 150mg 150 mg, Univers ESTERone 03-08 Intramuscu ity of (DEPO-PROVE 22:00: 21:12 lar, ONCE, [facility]) syringe 00 :00 1 dose, On Me dical 150 mg [facility] 03/08/23 at 1700, Routine melatonin 5 2022- No 5mg Take 5 mg Univers mg Chew 02-22 by mouth. ity of 11:49: 00:00 [place] 37 :00 [facility] melatonin 5 2022-2022- No 5mg Take 5 mg Univers mg Chew 02-22 by mouth. ity of 11:49: 00:00 [place] 37 :00 [facility] melatonin 5 2022-2022- No 5mg Take 5 mg Univers mg Chew 02-22 by mouth. ity of 11:49: 00:00 [place] 37 :00 [facility] melatonin 5 2022-2022- No 5mg Take 5 mg Univers mg Chew 02-22 by mouth. ity of 11:49: 00:00 [place] 37 :00 [facility] methocarbam 2022-0 Yes 500mg Take 1 Uni vers oL 500 mg - tablet by ity o f tablet 11:47: mouth 4 [place] 30 (four) Medical times Branch daily. methocarbam 2023-0 Yes 500mg Take 1 Uni vers oL 500 mg 7-11 tablet by ity o f tablet 11:47: mouth 4 [place] 30 (four) Medical times Branch daily. methocarbam 2023-0 Yes 500mg Take 1 Uni vers oL 500 mg 7-11 tablet by ity o f tablet 11:47: mouth 4 [place] 30 (four) Medical times Branch daily. methocarbam 2023-0 Yes 500mg Take 1 Uni vers oL 500 mg 7-11 tablet by ity o f tablet 11:47: mouth 4 [place] 30 (four) Medical times Branch daily. methocarbam 2023-0 Yes 500mg Take 1 Uni vers oL 500 mg 7-11 tablet by ity o f tablet 11:47: mouth 4 [place] 30 (four) Medical times Branch daily. methocarbam 2023-0 Yes 500mg Take 1 Uni vers oL 500 mg 7-11 tablet by ity o f tablet 11:47: mouth 4 [place] 30 (four) Medical times Branch daily. methocarbam 2023-0 Yes 500mg Take 1 Uni vers oL 500 mg 7-11 tablet by ity o f tablet 11:47: mouth 4 [place] 30 (four) Medical times Branch daily. methocarbam 2023-0 Yes 500mg Take 1 Uni vers oL 500 mg 7-11 tablet by ity o f tablet 11:47: mouth 4 [place] 30 (four) Medical times Branch daily. methocarbam 2023-0 Yes 500mg Take 1 Uni vers oL 500 mg 7-11 tablet by ity o f tablet 11:47: mouth 4 [place] 30 (four) Medical times Branch daily. methocarbam 2023-0 Yes 500mg Take 1 Uni vers oL 500 mg 7-11 tablet by ity o f tablet 11:47: mouth 4 [place] 30 (four) Medical times Branch daily. methocarbam 2023-0 Yes 500mg Take 1 Uni vers oL 500 mg 7-11 tablet by ity o f tablet 11:47: mouth 4 [place] 30 (four) Medical times Branch daily. methocarbam 2023-0 Yes 500mg Take 1 Uni vers oL 500 mg 7-11 tablet by ity o f tablet 11:47: mouth 4 [place] 30 (four) Medical times Branch daily. gabapentin 2023-0 Yes [id number] 800mg Take 1 Univers 800 mg 7-11 tablet by ity of tablet 00:00: mouth in [address] Medical morning [place] and 1 tablet at noon and 1 tablet in the evening. melatonin 5 2022-0 Yes 2.5mg Take 2.5 U nivers mg Chew 7-11 mg by ity of 00:00: mouth. [address] Branch gabapentin 2023-0 Yes [id number] 800mg Take 1 Univers 800 mg 7-11 tablet by ity of tablet 00:00: mouth in [place] [address] the [facility] morning [place] and 1 tablet at noon and 1 tablet in the evening. melatonin 5 2022-0 Yes 2.5mg Take 2.5 U nivers mg Chew 7-11 mg by ity of 00:00: mouth. [address] Branch gabapentin 2023-0 Yes [id number] 800mg Take 1 Univers 800 mg 7-11 tablet by ity of tablet 00:00: mouth in [address] morning [place] and 1 tablet at noon and 1 tablet in the evening. melatonin 5 2022-0 Yes 2.5mg Take 2.5 U nivers mg Chew 7-11 mg by ity of 00:00: mouth. [address] Branch gabapentin 2023-0 Yes [id number] 800mg Take 1 Univers 800 mg 7-11 tablet by ity of tablet 00:00: mouth in [address] morning [place] and 1 tablet at noon and 1 tablet in the evening. melatonin 5 2022-0 Yes 2.5mg Take 2.5 U nivers mg Chew 7-11 mg by ity of 00:00: mouth. [address] Branch gabapentin 2023-0 Yes [id number] 800mg Take 1 Univers 800 mg 7-11 tablet by ity of tablet 00:00: mouth in [address] morning [place] and 1 tablet at noon and 1 tablet in the evening. melatonin 5 2022-0 Yes 2.5mg Take 2.5 U nivers mg Chew 7-11 mg by ity of 00:00: mouth. [address] Branch gabapentin 2023-0 Yes [id number] 800mg Take 1 Univers 800 mg 7-11 tablet by ity of tablet 00:00: mouth in [address] morning [place] and 1 tablet at noon and 1 tablet in the evening. melatonin 5 2022-0 Yes 2.5mg Take 2.5 U nivers mg Chew 7-11 mg by ity of 00:00: mouth. [place] 00 Medical Branch gabapentin 2023-0 Yes [id number] 800mg Take 1 Univers 800 mg 7-11 tablet by ity of tablet 00:00: mouth in [place] [address] the [facility] morning [place] and 1 tablet at noon and 1 tablet in the evening. melatonin 5 2022-0 Yes 2.5mg Take 2.5 U nivers mg Chew 7-11 mg by ity of 00:00: mouth. [place] [address] Medical Branch gabapentin 2023-0 Yes [id number] 800mg Take 1 Univers 800 mg 7-11 tablet by ity of tablet 00:00: mouth in [address] morning [place] and 1 tablet at noon and 1 tablet in the evening. melatonin 5 2022-0 Yes 2.5mg Take 2.5 U nivers mg Chew 7-11 mg by ity of 00:00: mouth. [address] Branch gabapentin 2023-0 Yes [id number] 800mg Take 1 Univers 800 mg 7-11 tablet by ity of tablet 00:00: mouth in [address] morning [place] and 1 tablet at noon and 1 tablet in the evening. melatonin 5 2022-0 Yes 2.5mg Take 2.5 U nivers mg Chew 7-11 mg by ity of 00:00: mouth. [address] Branch gabapentin 2023-0 Yes [id number] 800mg Take 1 Univers 800 mg 7-11 tablet by ity of tablet 00:00: mouth in [address] morning [place] and 1 tablet at noon and 1 tablet in the evening. melatonin 5 2022-0 Yes 2.5mg Take 2.5 U nivers mg Chew 7-11 mg by ity of 00:00: mouth. [place] [address] Medical Branch gabapentin 2023-0 Yes [id number] 800mg Take 1 Univers 800 mg 7-11 tablet by ity of tablet 00:00: mouth in [address] morning [place] and 1 tablet at noon and 1 tablet in the evening. melatonin 5 3-0 Yes 2.5mg Take 2.5 U nivers mg Chew 7-11 mg by ity of 00:00: mouth. [address] Branch gabapentin 2023-0 Yes [id number] 800mg Take 1 Univers 800 mg 7-11 tablet by ity of tablet 00:00: mouth in [address] morning [place] and 1 tablet at noon and 1 tablet in the evening. melatonin 5 2023-0 Yes 2.5mg Take 2.5 U nivers mg Chew 7-11 mg by ity of 00:00: mouth. [place] 00 Medical Branch lactated 2022-0 Yes 1000mL at 75 Univer s ringers IV 5-08 mL/hr, ity of infusion 21:30: 1,000 mL, [place] 1,000 mL 00 IV Medical Infusion, Branch CONTINUOUS , Starting on Tue12/20/22 at 1630, Until Discontinu ed, Routine, PACU lactated 2022-0 2022- No 1000mL at 75 Unive rs ringers IV 5-08 05-09 mL/hr, ity of infusion 21:30: 02:06 1,000 mL, [place] 1,000 mL 00 :12 IV Medical Infusion, Branch CONTINUOUS , Starting on Tue12/20/22 at 1630, Until Tue12/20/22 at 2106, Routine, PACU FENTanyl PF 2022-0 Yes 25ug 25 mcg, Uni vers (SUBLIMAZE 12-20 Slow IV ity of (PF)) 21:23: Push, [place] injection 50 Q5MIN PRN, Medi cierra 25 mcg 4 doses, Branch Starting on Tue12/20/22 at 1623, Until Discontinu ed, Routine, Pain (scale 4-6), PACU ondansetron 0 Yes 4mg 4 mg, Slow Univers (ZOFRAN 12-20 IV Push, ity of (PF)) 21:23: PRN, 1 [place] injection 4 50 dose, Medical mg Starting Branch on Tue12/20/22 at 1623, Until Discontinu ed, Routine, Nausea and Vomiting (N/V), PACU FENTanyl PF 0 2022- No 25ug 25 mcg, Un jessika (SUBLIMAZE 12-20 05-09 Slow IV ity o f (PF)) 21:23: 02:06 Push, [place] injection 50 :12 Q5MIN PRN, Medi cierra 25 mcg 4 doses, Branch Starting on Tue12/20/22 at 1623, Until Tue12/20/22 at 2106, Routine, Pain (scale 4-6), PACU ondansetron 2022-0 2022- No 4mg 4 mg, Slow Univers (ZOFRAN 12-20 05-09 IV Push, ity of (PF)) 21:23: 02:06 PRN, 1 [place] injection 4 50 :12 dose, Medical mg Starting Branch on Tue12/20/22 at 1623, Until Tue12/20/22 at 2106, Routine, Nausea and Vomiting (N/V), PACU sodium 2023-0 Yes PRN, Univers chloride 5-08 Starting ity of 0.9 % 21:15: on Mon [place] irrigation 00 12/20/22 at Medi cierra solution 1615, Branch Until Discontinu ed, Intra-op sodium 2023-0 2023- No PRN, Univers chloride 5-08 05-09 Starting ity of 0.9 % 21:15: 02:06 on Mon [place] irrigation 00 :12 12/20/22 at Medi cierra solution 1615, Branch Until Tue12/20/22 at 2106, Intra-op melatonin 5 2022-0 Yes 5mg Take 5 mg U nivers mg Chew 5-08 by mouth. ity of 19:01: [address] methocarbam 3-0 Yes 500mg Take 1 Uni vers oL 500 mg 5-08 tablet by ity o f tablet 19:01: mouth [address] daily[address] melatonin 5 2022-0 Yes 5mg Take 5 mg U nivers mg Chew 5-08 by mouth. ity of 19:01: [address] methocarbam 3-0 Yes 500mg Take 1 Uni vers oL 500 mg 5-08 tablet by ity o f tablet 19:01: mouth [address]) [facility] daily. melatonin 5 3-0 Yes 5mg Take 5 mg U nivers mg Chew 5-08 by mouth. ity of 19:01: [address] methocarbam 2023-0 Yes 500mg Take 1 Uni vers oL 500 mg 5-08 tablet by ity o f tablet 19:01: mouth [address]) [facility] times [place] daily. melatonin 5 3-0 Yes 5mg Take 5 mg U nivers mg Chew 5-08 by mouth. ity of 19:01: [address] methocarbam 2023-0 Yes 500mg Take 1 Uni vers oL 500 mg 5-08 tablet by ity o f tablet 19:01: mouth [address] times [place] daily. melatonin 5 3-0 Yes 5mg Take 5 mg U nivers mg Chew 5-08 by mouth. ity of 19:01: [address] methocarbam 3-0 Yes 500mg Take 1 Uni vers oL 500 mg 5-08 tablet by ity o f tablet 19:01: mouth 4 [place] [address] ([facility]) Medical times [place] daily. melatonin 5 3-0 Yes 5mg Take 5 mg U nivers mg Chew 5-08 by mouth. ity of 19:01: [address] methocarbam 2023-0 Yes 500mg Take 1 Uni vers oL 500 mg 5-08 tablet by ity o f tablet 19:01: mouth 4 [place] [address] ([facility]) Medical times [place] daily. melatonin 5 3-0 Yes 5mg Take 5 mg U nivers mg Chew 5-08 by mouth. ity of 19:: [address] methocarbam 3-0 Yes 500mg Take 1 Uni vers oL 500 mg 5-08 tablet by ity o f tablet 19:01: mouth 4 [place] [address] ([facility]) Medical times [place] daily. melatonin 5 3-0 Yes 5mg Take 5 mg U nivers mg Chew 5-08 by mouth. ity of 19:: [address] methocarbam 3-0 Yes 500mg Take 1 Uni vers oL 500 mg 5-08 tablet by ity o f tablet 19:01: mouth 4 [place] [address] ([facility]) Medical times [place] daily. melatonin 5 3-0 Yes 5mg Take 5 mg U nivers mg Chew 5-08 by mouth. ity of 19:01: [address] melatonin 5 3-0 Yes 5mg Take 5 mg U nivers mg Chew 5-08 by mouth. ity of 19:01: [address] lactated 2022-0 2023- No 1000mL at 42 Unive rs ringers IV 5-08 05-08 mL/hr, ity of infusion 18:45: 19:00 1,000 mL, [place] 1,000 mL 00 :00 IV Medical Infusion, Branch ONCE, 1 dose, On Tue12/20/22 at 1345, Routine, DSU Pre-op lactated 3-0 3- No 1000mL at 42 Unive rs ringers IV 5-08 05-08 mL/hr, ity of infusion 18:45: 19:00 1,000 mL, [place] 1,000 mL 00 :00 IV Medical Infusion, Branch ONCE, 1 dose, On 12/20/22 at 1345, Routine, DSU Pre-op aspirin 325 2023-0 2023- No [id number] 325mg Take 1 Univers mg tablet 5-03 20-06 tablet by ity of 00:00: 04:59 mouth in [place] 00 :00 the Medical morning Branch and 1 tablet in the evening. Take with meals. Do all this for 28 days. aspirin 325 2023-0 2023- No [id number] 325mg Take 1 Univers mg tablet 5- 06-06 tablet by ity of 00:00: 04:59 mouth in [place] 00 :00 the Medical morning Branch and 1 tablet in the evening. Take with meals. Do all this for 28 days. aspirin 325 2023-0 2023- No [id number] 325mg Take 1 Univers mg tablet 5-03 20-06 tablet by ity of 00:00: 04:59 mouth in [place] 00 :00 the Medical morning Branch and 1 tablet in the evening. Take with meals. Do all this for 28 days. aspirin 325 2023-0 2022- No [id number] 325mg Take 1 Univers mg tablet 5-06 tablet by ity of 00:00: 04:59 mouth in [place] 00 :00 the Medical morning Branch and 1 tablet in the evening. Take with meals. Do all this for 28 days. aspirin 325 2023-0 2022- No [id number] 325mg Take 1 Univers mg tablet 5-06 tablet by ity of 00:00: 04:59 mouth in [place] 00 :00 the Medical morning Branch and 1 tablet in the evening. Take with meals. Do all this for 28 days. aspirin 325 2023-0 2023- No [id number] 325mg Take 1 Univers mg tablet 5-06 tablet by ity of 00:00: 04:59 mouth in [place] 00 :00 the Medical morning Branch and 1 tablet in the evening. Take with meals. Do all this for 28 days. aspirin 325 2023-0 2023- No [id number] 325mg Take 1 Univers mg tablet 5- 06-06 tablet by ity of 00:00: 04:59 mouth in [place] 00 :00 the Medical morning Branch and 1 tablet in the evening. Take with meals. Do all this for 28 days. aspirin 325 2023-0 2023- No [id number] 325mg Take 1 Univers mg tablet 12-20-06 tablet by ity of 00:00: 04:59 mouth in [place] 00 :00 the Medical morning Branch and 1 tablet in the evening. Take with meals. Do all this for 28 days. [place]DROcodone [place] [id number] 1{tbl} Take 1 U nivers -acetaminop 5-08 05-16 tablet by it y of hen 5-325 00:00: 04:59 mouth [place] mg tablet 00 :00 every 6 Medical (six) Branch hours as needed for Pain (scale 4-6) or Pain (scale 7-10) for up to 7 days. Indication s: acute [place] HYDROcodone [place] [id number] 1{tbl} Take 1 U nivers -acetaminop 5-08 05-16 tablet by it y of hen 5-325 00:00: 04:59 mouth [place] mg tablet 00 :00 every 6 Medical (six) Branch hours as needed for Pain (scale 4-6) or Pain (scale 7-10) for up to 7 days. Indication s: acute pain [place]DROcodone [place] 4647 1{tbl} Take 1 U nivers -acetaminop 5-08 05-16 tablet by it y of hen 5-325 00:00: 04:59 mouth [place] mg tablet 00 :00 every 6 Medical (six) Branch hours as needed for Pain (scale 4-6) or Pain (scale 7-10) for up to 7 days. Indication s: acute pain HYDROcodone No 4647 1{tbl} Take 1 U nivers -acetaminop 5-08 05-16 tablet by it y of hen 5-325 00:00: 04:59 mouth [place] mg tablet 00 :00 every 6 Medical (six) Branch hours as needed for Pain (scale 4-6) or Pain (scale 7-10) for up to 7 days. Indication s: acute pain HYDROcodone No 4647 1{tbl} Take 1 U nivers -acetaminop 5-08 05-16 tablet by it y of hen 5-325 00:00: 04:59 mouth [place] mg tablet 00 :00 every 6 Medical (six) Branch hours as needed for Pain (scale 4-6) or Pain (scale 7-10) for up to 7 days. Indication s: acute pain melatonin 5 2022-0 Yes 5mg Take 5 mg U nivers mg Chew 5-05 by mouth. ity of 12:21: [address] methocarbam 2022-0 Yes 500mg Take 1 Uni vers oL 500 mg 5-05 tablet by ity o f tablet 12:21: mouth [address] [place] [id number] ([facility]) Medical times [place] daily. melatonin 5 2022-0 Yes 5mg Take 5 mg U nivers mg Chew 5-04 by mouth. ity of 15:57: [address] methocarbam 2022-0 Yes 500mg Take 1 Uni vers oL 500 mg 5-04 tablet by ity o f tablet 15:57: mouth 4 [place] [id number] ([facility]) Medical times [place] daily. melatonin 5 2022-0 Yes 5mg Take 5 mg U nivers mg Chew 5-04 by mouth. ity of 15:57: [address] methocarbam 2022-0 Yes 500mg Take 1 Uni vers oL 500 mg 5-04 tablet by ity o f tablet 15:57: mouth 4 [place] [address] ([facility]) Medical times [place] daily. insulin 0 Yes 20U 20 Units, Unive rs glargine -04 Subcutaneo ity o f (LANTUS 14:00: us, DAILY, [place] U-100) 00 First dose Medical injection (after Branch 20 Units last modificati on) on Tue12/16/22 at 0900, Until Discontinu ed, Routine Diphenhydra 2022- No Take by Un jessika mine-Acetam - 05-04 mouth. ity o f inophen 13:17: 00:00 [place] (TYLENOL PM 26 :00 Medical EXTRA Branch STRENGTH) 25-500 mg Tab atorvastati Yes 40mg 40 mg, Univ ers n (LIPITOR) 5-04 Oral, QHS, it y of tablet 40 02:00: First dose [place] mg 00 on Tue12/15/22 at Branch 2100, Until Discontinu ed, Routine atorvastati 2022- 202- No [id number] 40mg Take 1 Univers n 40 mg 5-04 06-04 tablet by ity of tablet 00:00: 04:59 mouth at [place] 00 :00 bedtime Medical for 30 Branch days. atorvastati 2022- No [id number] 40mg Take 1 Univers n 40 mg 5-04 06-04 tablet by ity of tablet 00:00: 04:59 mouth at [place] 00 :00 bedtime Medical for 30 Branch days. atorvastati 2022- No [id number] 40mg Take 1 Univers n 40 mg 5-04 06-04 tablet by ity of tablet 00:00: 04:59 mouth at [place] 00 :00 bedtime Medical for 30 Branch days. atorvastati 2022- No [id number] 40mg Take 1 Univers n 40 mg 5-04 06-04 tablet by ity of tablet 00:00: 04:59 mouth at [place] 00 :00 bedtime Medical for 30 Branch days. atorvastati 2022- No [id number] 40mg Take 1 Univers n 40 mg 5-04 -04 tablet by ity of tablet 00:00: 04:59 mouth at [place] 00 :00 bedtime Medical for 30 Branch days. atorvastati 2022- No [id number] 40mg Take 1 Univers n 40 mg 5-04 -04 tablet by ity of tablet 00:00: 04:59 mouth at [place] 00 :00 bedtime Medical for 30 Branch days. atorvastati 2022- No [id number] 40mg Take 1 Univers n 40 mg 5-04 06-04 tablet by ity of tablet 00:00: 04:59 mouth at [place] 00 :00 bedtime Medical for 30 Branch days. atorvastati 2022- No [id number] 40mg Take 1 Univers n 40 mg 5-04 06-04 tablet by ity of tablet 00:00: 04:59 mouth at [place] 00 :00 bedtime Medical for 30 Branch days. atorvastati 2022-3- No [id number] 40mg Take 1 Univers n 40 mg 5-04 06-04 tablet by ity of tablet 00:00: 04:59 mouth at [place] 00 :00 bedtime Medical for 30 Branch days. atorvastati 3- No [id number] 40mg Take 1 Univers n 40 mg 5-04 06-04 tablet by ity of tablet 00:00: 04:59 mouth at [place] 00 :00 bedtime Medical for 30 Branch days. atorvastati 2022- No [id number] 40mg Take 1 Univers n 40 mg -11 18-04 tablet by ity of tablet 00:00: 04:59 mouth at [place] 00 :00 bedtime Medical for 30 Branch days. HYDROcodone No 4647 1{tbl} Take 1 U nivers -acetaminop 5-04 05-12 tablet by it y of hen 5-325 00:00: 04:59 mouth [place] mg tablet 00 :00 every 6 Medical (six) Branch hours as needed for Pain (scale 4-6) for up to 7 days. Indication s: acute pain HYDROcodone No 4647 1{tbl} Take 1 U nivers -acetaminop 5-04 05-12 tablet by it y of hen 5-325 00:00: 04:59 mouth [place] mg tablet 00 :00 every 6 Medical (six) Branch hours as needed for Pain (scale 4-6) for up to 7 days. Indication s: acute pain HYDROcodone No 4647 1{tbl} Take 1 U nivers -acetaminop 5-04 05-12 tablet by it y of hen 5-325 00:00: 04:59 mouth [place] mg tablet 00 :00 every 6 Medical (six) Branch hours as needed for Pain (scale 4-6) for up to 7 days. Indication s: acute pain HYDROcodone No 4647 1{tbl} Take 1 U nivers -acetaminop 5-04 05-12 tablet by it y of hen 5-325 00:00: 04:59 mouth [place] mg tablet 00 :00 every 6 Medical (six) Branch hours as needed for Pain (scale 4-6) for up to 7 days. Indication s: acute pain HYDROcodone No 4647 1{tbl} Take 1 U nivers -acetaminop 5-04 05-12 tablet by it y of hen 5-325 00:00: 04:59 mouth [place] mg tablet 00 :00 every 6 Medical (six) Branch hours as needed for Pain (scale 4-6) for up to 7 days. Indication s: acute pain HYDROcodone No 4647 1{tbl} Take 1 U nivers -acetaminop 5-04 05-12 tablet by it y of hen 5-325 00:00: 04:59 mouth [place] mg tablet 00 :00 every 6 Medical (six) Branch hours as needed for Pain (scale 4-6) for up to 7 days. Indication s: acute pain HYDROcodone 2022- No 4647 1{tbl} Take 1 U nivers -acetaminop 5-04 05-12 tablet by it y of hen 5-325 00:00: 04:59 mouth [place] mg tablet 00 :00 every 6 Medical (six) Branch hours as needed for Pain (scale 4-6) for up to 7 days. Indication s: acute pain HYDROcodone 2022- No 4647 1{tbl} Take 1 U nivers -acetaminop 5-04 05-12 tablet by it y of hen [...] Yes 3U 3 Units, Univer s lispro 12-15 Subcutaneo ity of (human) 22:00: us, TID [place] (HumaLOG 00 MEALS, Medical U-100) First dose Branch injection 3 on Tue Units 12/15/22 at 1700, Until Discontinu ed, Routine Sliding 2022- No Subcutaneo Uni vers Scale - 05-03 us, AC+HS, ity of Insulin-Reg 12:30: 20:24 First dose [place] ular 00 :27 on Tue Medical 12/15/22 at Branch 0730, Until Discontinu ed, Routine insulin 2022- No 10U 10 Units, Univ ers regular 12-15-03 Subcutaneo ity o f human 10:00: 09:25 us, ONCE, [place] (HUMULIN R) 00 :00 1 dose, On Me dical injection Tue12/15/22 Bran ch 10 Units at 0500, Routine
Indicatio n for insulin: Hyperglyce buck insulin No 10U 10 Units, [facility] ers glargine 12-15 Subcutaneo ity of (LANTUS 09:15: 14:03 us, BID, [place] U-100) 00 :38 First dose Medical injection on Tue Branch 10 Units 12/15/22 at 0415, Until Discontinu ed, Routine NaCl 0.9% 2022- No 1000mL at 50 [facility] ers (NS) IV 12-15 mL/hr, IV ity of infusion 06:15: 05:33 Infusion, [place] 1,000 mL 00 :16 ONCE, 1 Medical dose, On Branch Tue12/15/22 at 0115, Routine potassium No 10meq 10 mEq, IV Univers chloride in 12-15 Piggyback, i ty of water 10 06:00: 08:56 ONCE, 1 [place] mEq/100 mL 00 :00 dose, On Medic al RTU 10 mEq Tue12/15/22 [facility] at 0100, Administer over 60 Minutes, 100 mL insulin No 10U 10 Units, [facility] glargine 12-15 Subcutaneo ity of (LANTUS 05:15: [...] at 2015, Until Discontinu ed, Routine morpHINE ( Yes 2mg 2 mg, Slow Univers mg/mL) 12-14 IV Push, ity of injection 2 23:20: Q4HPRN, [place] mg 08 Starting Medical on Tue Branch 12/14/22 at 1820, Until Discontinu ed, Routine, Pain (scale 7-10) morpHINE (4 2022- No 2mg 2 mg, Slow Univers mg/mL) 12-14 IV Push, ity of injection 2 23:01: 23:20 Q4HPRN, [place] mg 25 :58 Starting Medical on Branch 12/14/22 at 1801, Until Tue12/14/22 at 1820, Routine, Pain (scale 7-10) HYDROcodone 0 Yes 1{tbl} 1 tablet, Univers -acetaminop 12-14 Oral, ity of hen (NORCO 23:01: Q6HPRN, [place] 5) 5-325 mg 04 Starting Medi cierra tablet 1 on Tue tablet 12/14/22 at 1801, Until Discontinu ed, Routine, Pain (scale 4-6) NaCl 0.9% 2022- No 1000mL at 999 Uni vers (NS) bolus 12-14 mL/hr, ity of infusion 22:15: 21:33 1,000 mL, [place] 1,000 mL 00 :00 IV Medical Infusion, [place] ONCE, 1 dose, On Tue12/14/22 at 1715, [place] enoxaparin Yes 40mg 40 mg, Unive rs (LOVENOX) 12-14 Subcutaneo ity of injection 22:00: us, DAILY, [place] 40 mg 00 First dose Medical on [facility] 12/14/22 at 1700, Until Discontinu ed, Routine morpHINE (4 2022- No 4mg 4 mg, Slow Univers mg/mL) 12-14 IV Push, ity of injection 4 22:00: 21:51 ONCE, 1 [place] mg 00 :00 dose, On Medical 12/14/22 Branch at 1700, STAT metoclopram 2022- No 10mg 10 mg, Uni vers adela HCl 12-14 Slow IV ity of (REGLAN) 21:30: 21:51 Push, [place] injection 00 :00 ONCE, 1 Medical 10 mg dose, On Branch 12/14/22 at 1630, [place] insulin 2022-0 2022- No 0U/kg/h 0-0.3 Unive rs regular in 12-14 05-03 Units/kg/h it y of 0.9 % [...] No 1000mL at 200 Uni vers NaCl 12-14-03 mL/hr, ity of (1/2NS) IV 21:12: 05:27 1,000 mL, [place] infusion 42 :24 IV Medical 1,000 mL Infusion, Branch PRN - SEE INSTRUCTIO NS, Starting on Tue12/14/22 at 1612, Until Tue12/15/22 at 0027, [place] insulin 2022- No 10U 10 Units, Univ ers regular 12-14 IV ity of human 20:45: 20:04 Piggyback, [place] (HUMULIN R) 00 :00 ONCE, 1 Medic al injection dose, On Branch 10 Units Tue12/14/22 at 1545, Routine
Indicatio n for insulin: Hyperglyce buck NaCl 0.9% 2022- No 1000mL at 999 Uni vers (NS) bolus 12-14 mL/hr, ity of infusion 20:15: 21:26 1,000 [...] mine-Acetam 12-14 mouth. ity of inophen 18:38: [place] (TYLENOL PM 37 Medical EXTRA Branch STRENGTH) 25-500 mg Tab melatonin 5 Yes 5mg Take 5 mg U nivers mg Chew 12-14 by mouth. ity of 18:38: [place] 37 Medical Branch medroxyPROG 2022- No [id number] 150mg Univers ESTERone 12-1403 ity of (DEPO-PROVE 14:00: 01:59 [facility]) syringe 00 :00 Medical 150 mg Branch medroxyPROG 2022- No [id number] 150mg Univers ESTERone 12-14-03 ity of (DEPO-PROVE 14:00: 01:59 [facility]) syringe 00 :00 Medical 150 mg Branch medroxyPROG 0 2022- No [id number] 150mg 150 mg, Univers ESTERone 12-14 Intramuscu ity of (DEPO-PROVE 14:00: 19:12 lar, ONCE, [facility]) syringe 00 :00 1 dose, On Me dical 150 mg 12/14/22 Branch at 0900, Routine medroxyPROG 2022- No [id number] 150mg Univers ESTERone 12-1402 ity of (DEPO-PROVE 14:00: 19:12 [facility]) syringe 00 :00 Medical 150 mg Branch melatonin 5 Yes 5mg Take 5 mg U nivers mg Chew 4-25 by mouth. ity of 09:28: [address] melatonin 5 Yes 5mg Take 5 mg U nivers mg Chew 4-25 by mouth. ity of 09:28: [address] melatonin 5 Yes 5mg Take 5 mg U nivers mg Chew 4-25 by mouth. ity of 09:28: [address] HUMALOG Yes Univers KWIKPEN 3-17 ity of [...] [place] unit/mL 00 Medical injection Branch HUMALOG 2022- No Univers KWIKPEN 3-17 05-04 ity of INSULIN 100 00:00: 00:00 [place] unit/mL 00 :00 Medical injection Branch fluticasone 0 Yes INSTILL Uni vers propionate 1-27 ONE (1) ity of 50 00:00: SPRAY INTO [place] mcg/actuati 00 EACH Medical on nasal NOSTRIL Branch spray ONCE DAILY FOR 10 DAYS. fluticasone 2023-0 Yes INSTILL Uni vers propionate 1-27 ONE (1) ity of 50 00:00: SPRAY INTO [place] mcg/actuati 00 EACH Medical on nasal NOSTRIL Branch spray ONCE DAILY FOR 10 DAYS. fluticasone 2023-0 Yes INSTILL Uni vers propionate 1-27 ONE (1) ity of 50 00:00: SPRAY INTO [place] mcg/actuati 00 EACH Medical on nasal NOSTRIL Branch spray ONCE DAILY FOR 10 DAYS. fluticasone 2023-0 Yes INSTILL Uni vers propionate 1-27 ONE (1) ity of 50 00:00: SPRAY INTO [place] mcg/actuati 00 EACH Medical on nasal NOSTRIL Branch spray ONCE DAILY FOR 10 DAYS. fluticasone 2023-0 Yes INSTILL Uni vers propionate 1-27 ONE (1) ity of 50 00:00: SPRAY INTO [place] mcg/actuati 00 EACH Medical on nasal NOSTRIL Branch spray ONCE DAILY FOR 10 DAYS. fluticasone 2023-0 Yes INSTILL Uni vers propionate 1-27 ONE (1) ity of 50 00:00: SPRAY INTO [place] mcg/actuati 00 EACH Medical on nasal NOSTRIL Branch spray ONCE DAILY FOR 10 DAYS. fluticasone 2023-0 Yes INSTILL Uni vers propionate 1-27 ONE (1) ity of 50 00:00: SPRAY INTO [place] mcg/actuati 00 EACH Medical on nasal NOSTRIL Branch spray ONCE DAILY FOR 10 DAYS. fluticasone 2023-0 Yes INSTILL Uni vers propionate 1-27 ONE (1) ity of 50 00:00: SPRAY INTO [place] mcg/actuati 00 EACH Medical on nasal NOSTRIL Branch spray ONCE DAILY FOR 10 DAYS. fluticasone 2023-0 Yes INSTILL Uni vers propionate 1-27 ONE (1) ity of 50 00:00: SPRAY INTO [place] mcg/actuati 00 EACH Medical on nasal NOSTRIL Branch spray ONCE DAILY FOR 10 DAYS. fluticasone 2023-0 Yes INSTILL Uni vers propionate 1-27 ONE (1) ity of 50 00:00: SPRAY INTO [place] mcg/actuati 00 EACH Medical on nasal NOSTRIL Branch spray ONCE DAILY FOR 10 DAYS. fluticasone 2023-0 Yes INSTILL Uni vers propionate 1-27 ONE (1) ity of 50 00:00: SPRAY INTO [place] mcg/actuati 00 EACH Medical on nasal NOSTRIL Branch spray ONCE DAILY FOR 10 DAYS. fluticasone 2023-0 Yes INSTILL Uni vers propionate 1-27 ONE (1) ity of 50 00:00: SPRAY INTO [place] mcg/actuati 00 EACH Medical on nasal NOSTRIL Branch spray ONCE DAILY FOR 10 DAYS. fluticasone 2023-0 Yes INSTILL Uni vers propionate 1-27 ONE (1) ity of 50 00:00: SPRAY INTO [place] mcg/actuati 00 EACH Medical on nasal NOSTRIL Branch spray ONCE DAILY FOR 10 DAYS. fluticasone 2023-0 Yes INSTILL Uni vers propionate -27 ONE (1) ity of 50 00:00: SPRAY INTO [place] mcg/actuati 00 EACH Medical on nasal NOSTRIL Branch spray ONCE DAILY FOR 10 DAYS. fluticasone 2023-0 Yes INSTILL Uni vers propionate - ONE (1) ity of 50 00:00: SPRAY INTO [place] mcg/actuati 00 EACH Medical on nasal NOSTRIL Branch spray ONCE DAILY FOR 10 DAYS. fluticasone 2023-0 Yes INSTILL Uni vers propionate 1-27 ONE (1) ity of 50 00:00: SPRAY INTO [place] mcg/actuati 00 EACH Medical on nasal NOSTRIL Branch spray ONCE DAILY FOR 10 DAYS. fluticasone 2023-0 Yes INSTILL Uni vers propionate 1-27 ONE (1) ity of 50 00:00: SPRAY INTO [place] mcg/actuati 00 EACH Medical on nasal NOSTRIL Branch spray ONCE DAILY FOR 10 DAYS. fluticasone 2023-0 Yes INSTILL Uni vers propionate 1-27 ONE (1) ity of 50 00:00: SPRAY INTO [place] mcg/actuati 00 EACH Medical on nasal NOSTRIL Branch spray ONCE DAILY FOR 10 DAYS. fluticasone 2023-0 2023- No INSTILL Un jessika propionate 09-10 07-11 ONE (1) ity o f 50 00:00: 00:00 SPRAY INTO [place] mcg/actuati 00 :00 EACH Medical on nasal NOSTRIL Branch spray ONCE DAILY FOR 10 DAYS. fluticasone 2023-0 2023- No INSTILL Un jessika propionate 09-10 ONE (1) ity o f 50 00:00: 00:00 SPRAY INTO [place] mcg/actuati 00 :00 EACH Medical on nasal NOSTRIL Branch spray ONCE DAILY FOR 10 DAYS. fluticasone 2022- No INSTILL Un jessika propionate 09-10 ONE (1) ity o f 50 00:00: 00:00 SPRAY INTO [place] mcg/actuati 00 :00 EACH Medical on nasal NOSTRIL Branch spray ONCE DAILY FOR 10 DAYS. fluticasone 2022- No INSTILL Un jessika propionate 09-10 ONE (1) ity o f 50 00:00: 00:00 SPRAY INTO [place] mcg/actuati 00 :00 EACH Medical on nasal NOSTRIL Branch spray [...] Take [address] [facility] [address] (TESSALON) 09-06 11-30 capsule [facility] 100 MG 00:00: 23:59 (100 mg Medical capsule 00 :00 total) by Center mouth 3 (three) times daily as needed for Cough for up to 7 days. benzonatate 2021-08- No 100mg Take [address] (TESSALON) 09-06-30 capsule [facility] 100 MG 00:00: 23:59 (100 mg Medical capsule 00 :00 total) by Center mouth 3 (three) times daily as needed for Cough for up to 7 days. benzonatate 2021-08- No 100mg Take [address] (TESSALON) 09-06-30 capsule [facility] 100 MG 00:00: 23:59 (100 [...] (two) times daily for 3 days. insulin 2022-0 Yes 15U inject 15 Unive rs lispro 100 3-15 Units ity of unit/mL 00:00: under the [place] inph 00 skin in [facility] the [place] morning. insulin 0 Yes 15U inject 15 Unive rs lispro 100 3-15 Units ity of unit/mL 00:00: under the [place] inph 00 skin in [facility] the [place] morning. insulin 0 Yes 15U inject 15 Unive rs lispro 100 3-15 Units ity of unit/mL 00:00: under the [place] inph 00 skin in [facility] the [place] morning. insulin 0 Yes 15U inject 15 Unive rs lispro 100 3-15 Units ity of unit/mL 00:00: under the [place] inph 00 skin in [facility] the [place] morning. insulin 2022- No 15U inject 15 Univ ers lispro 100 3-15 05-04 Units ity of unit/mL 00:00: 00:00 [place] the [place] inph 00 :00 skin in [facility] [place] morning. Blood-Gluco 2020- Yes Use to Univ [...] Yes Use to Univ ers se Meter -09 check ity of (ONETOUCH 00:00: blood [place] VERIO FLEX 00 sugar 3X Medic al METER) Misc daily. Branch DX:E10.69 Blood-Gluco 2019- Yes Use to Univ ers se Meter -09 check ity of (ONETOUCH 00:00: blood [place] [...] Yes Use to Univ ers se Meter -09 check ity of (ONETOUCH 00:00: blood [place] VERIO FLEX 00 sugar 3X Medic al METER) Misc daily. Branch DX:E10.69 Blood-Gluco 2019- Yes Use to Univ ers se Meter - check ity of (ONETOUCH 00:00: blood [place] VERIO FLEX 00 sugar 3X Medic al METER) Misc daily. Branch DX:E10.69 Blood-Gluco 2020- Yes Use to Univ ers se Meter -09 check ity of (ONETOUCH 00:00: blood [place] VERIO FLEX 00 sugar 3X Medic al METER) Misc daily. Branch DX:E10.69 Blood-Gluco 2019- Yes Use to Univ ers se Meter - check ity of (ONETOUCH 00:00: blood [place] VERIO FLEX 00 sugar 3X Medic al METER) Misc daily. Branch DX:E10.69 Blood-Gluco 2019-08 Yes Use to Univ ers se Meter - check ity of (ONETOUCH 00:00: blood [place] VERIO FLEX 00 sugar 3X Medic al METER) Misc daily. Branch DX:E10.69 lancets 2019-08 Yes Use to [facility] (ONE TOUCH 08-23 check ity of DELICA) [...] al METER) Misc daily. Branch DX:E10.69 Blood-Gluco 2019-08 Yes Use to Univ ers se Meter 08-23 check ity of (ONETOUCH 00:00: blood [place] VERIO FLEX 00 sugar 3X Medic al METER) Misc daily. Branch DX:E10.69 Blood-Gluco 2019-08 Yes Use to Univ ers se Meter - check ity of (ONETOUCH 00:00: blood [place] VERIO FLEX 00 sugar 3X Medic al METER) Misc daily. Branch DX:E10.69 Blood-Gluco 2019-08 Yes Use to Univ ers se Meter 08-23 check ity of (ONETOUCH 00:00: blood [place] VERIO FLEX 00 sugar 3X Medic al METER) Misc daily. Branch DX:E10.69 Blood-Gluco 2019-08 Yes Use to Univ [...] Branch DX:E10.69 lancets 2019-08 Yes Use to [facility] (ONE TOUCH 08-23 check ity of DELICA) [...] al METER) Misc daily. Branch DX:E10.69 Blood-Gluco 2019-08 Yes Use to Univ ers se Meter 08-23 check ity of (ONETOUCH 00:00: blood [place] VERIO FLEX 00 sugar 3X Medic al METER) Misc daily. Branch DX:E10.69 Blood-Gluco 2019-08 Yes Use to Univ ers se Meter 08-23 check ity of (ONETOUCH 00:00: blood [place] VERIO FLEX 00 sugar 3X Medic al METER) Misc daily. Branch DX:E10.69 Blood-Gluco 2019-08 Yes Use to Univ ers se Meter 08-23 check ity of (ONETOUCH 00:00: blood [place] VERIO FLEX 00 sugar 3X Medic al METER) Misc daily. Branch DX:E10.69 Blood-Gluco 2019-08 Yes Use to Univ ers se Meter 08-23 check ity of (ONETOUCH 00:00: blood [place] VERIO FLEX 00 sugar 3X Medic al METER) Misc daily. Branch DX:E10.69 Blood-Gluco 2019-08 Yes Use to Univ ers se Meter 08-23 check ity of (ONETOUCH 00:00: blood [place] VERIO FLEX 00 sugar 3X Medic al METER) Misc daily. Branch DX:E10.69 Blood-Gluco 2019-08 Yes Use to Univ ers se Meter 08-23 check ity of (ONETOUCH 00:00: blood [place] VERIO FLEX 00 sugar 3X Medic al METER) Misc daily. Branch DX:E10.69 Blood-Gluco 2019-08 Yes Use to Univ ers se Meter 08-23 check ity of (ONETOUCH 00:00: blood [place] VERIO FLEX 00 sugar 3X Medic al METER) Misc daily. Branch DX:E10.69 lancets 2019-08 Yes Use to Univers (ONE TOUCH 08-23 check ity of DELICA) 33 00:00: blood [place] gauge Misc 00 sugar 3X Medic al daily. Branch DX:E10.69 Blood-Gluco 2019-08 Yes Use to Univ ers se Meter 08-23 check ity of (ONETOUCH 00:00: blood [place] VERIO FLEX 00 sugar 3X Medic al METER) Misc daily. Branch DX:E10.69 blood sugar 2019-08 Yes [...] 2019-08 Yes Take by Uni vers mine-Acetam 1-06 mouth. ity of inophen 10:51: [place] (TYLENOL PM 02 Medical EXTRA Branch STRENGTH) 25-500 mg Tab Diphenhydra 2019-08 Yes Take by Uni vers mine-Acetam 1-06 [...] STRENGTH) 25-500 mg Tab insulin 2019-08 Yes [id number] 22U inject 22 Univers degludec 1-06 Units ity of (TRESIBA 00:00: [place] the [place] FLEXTOUCH 00 skin Medical U-100) 100 daily. Branch unit/mL (3 mL) InPn insulin 2019-08 Yes [id number] 5U inject Uni vers lispro-aabc 1-06 5-14 Units it y of 100 unit/mL 00:00: under the [place] InPn 00 skin 3 Medical (three) Branch times daily with meals. Insulin 2019-08 Yes [id number] 1{each} inject 1 [facility] [place], 1-06 Each under ity o f Disposable, 00:00: the skin [place] (PEN 00 before Medical NEEDLE) 31 meals and Bran ch gauge x at 3/16" Ndle bedtime. Use as directed insulin 2019- Yes [id number] 22U inject 22 Univers degludec 1-06 Units ity of (TRESIBA 00:00: under the [place] FLEXTOUCH 00 skin Medical U-100) 100 daily. Branch unit/mL (3 mL) InPn insulin 2019- Yes [id number] 5U inject Uni vers lispro-aabc 1-06 5-14 Units it y of 100 unit/mL 00:00: under the [place] InPn 00 skin 3 Medical (three) Branch times daily with meals. Insulin 2019- Yes [id number] 1{each} inject 1 [facility] [place], 1-06 Each under ity o f Disposable, 00:00: the skin [place] (PEN 00 before Medical NEEDLE) 31 meals and Bran ch gauge x at 3/16" Ndle bedtime. Use as directed insulin 2019- Yes [id number] 22U inject 22 [facility] degludec 1-06 Units ity of (TRESIBA 00:00: under the [place] FLEXTOUCH 00 skin Medical U-100) 100 daily. Branch unit/mL (3 mL) InPn insulin 2019- Yes [id number] 5U inject Uni vers lispro-aabc 1-06 5-14 Units it y of 100 unit/mL 00:00: under the [place] InPn 00 skin 3 Medical (three) Branch times daily with meals. Insulin 2019- Yes [id number] 1{each} inject 1 [facility] [place], 1-06 Each under ity o f Disposable, 00:00: the skin [place] (PEN 00 before Medical NEEDLE) 31 meals and Bran ch gauge x at 3/16" Ndle bedtime. Use as directed insulin 2019- Yes [id number] 22U inject 22 [facility] degludec 1-06 Units ity of (TRESIBA 00:00: under the [place] FLEXTOUCH 00 skin Medical U-100) 100 daily. Branch unit/mL (3 mL) InPn insulin 2019- Yes [id number] 5U inject Uni vers lispro-aabc 1-06 5-14 Units it y of 100 unit/mL 00:00: under the [place] InPn 00 skin 3 Medical (three) Branch times daily with meals. Insulin 2019- Yes [id number] 1{each} inject 1 [facility] [place], 1-06 Each under ity o f Disposable, 00:00: the skin [place] (PEN 00 before Medical NEEDLE) 31 meals and Bran ch gauge x at 3/16" Ndle bedtime. Use as directed insulin 2019- Yes [id number] 22U inject 22 [facility] degludec 1-06 Units ity of (TRESIBA 00:00: under the [place] FLEXTOUCH 00 skin Medical U-100) 100 daily. Branch unit/mL (3 mL) InPn insulin 2020- Yes [id number] 5U inject Uni vers lispro-aabc 1-06 5-14 Units it y of 100 unit/mL 00:00: under the [place] InPn 00 skin 3 Medical (three) Branch times daily with meals. Insulin 2019- Yes [id number] 1{each} inject 1 [facility] [place], 1-06 Each under ity o f Disposable, 00:00: the skin [place] (PEN 00 before Medical NEEDLE) 31 meals and Bran ch gauge x at 3/16" Ndle bedtime. Use as directed insulin 2019- Yes [id number] 22U inject 22 [facility] degludec 1-06 Units ity of (TRESIBA 00:00: under the [place] FLEXTOUCH 00 skin Medical U-100) 100 daily. Branch unit/mL (3 mL) InPn insulin 2019- Yes [id number] 5U inject Uni vers lispro-aabc 1-06 5-14 Units it y of 100 unit/mL 00:00: under the [place] InPn 00 skin 3 Medical (three) Branch times daily with meals. Insulin 2019- Yes [id number] 1{each} inject 1 [facility] [place], 1-06 Each under ity o f Disposable, 00:00: the skin [place] (PEN 00 before Medical NEEDLE) 31 meals and Bran ch gauge x at 3/16" Ndle bedtime. Use as directed insulin 2019- Yes [id number] 22U inject 22 [facility] degludec 1-06 Units ity of (TRESIBA 00:00: under the [place] FLEXTOUCH 00 skin Medical U-100) 100 daily. Branch unit/mL (3 mL) InPn insulin 2020- Yes [id number] 5U inject Uni vers lispro-aabc 1-06 5-14 Units it y of 100 unit/mL 00:00: under the [place] InPn 00 skin 3 Medical (three) Branch times daily with meals. Insulin 2019- Yes [id number] 1{each} inject 1 [facility], 1-06 Each under ity o f Disposable, 00:00: the skin [place] (PEN 00 before Medical NEEDLE) 31 meals and Bran ch gauge x at 3/16" Ndle bedtime. Use as directed insulin 2020- Yes [id number] 22U inject 22 [facility] 1-06 Units ity of ([place] skin [facility] U-100) 100 daily. Branch unit/mL (3 mL) InPn insulin 2020- Yes [id number] 5U inject [facility] 1-06 5-14 Units it y of 100 unit/mL 00:00: [place] InPn 00 skin 3 Medical (three) Branch times daily with meals. Insulin 2020- Yes [id number] 1{each} inject 1 [facility], 1-06 Each under ity o f Disposable, 00:00: the skin [place] (PEN 00 before Medical NEEDLE) 31 meals and Bran ch gauge x at 3/16" Ndle bedtime. Use as directed insulin 2019- Yes [id number] 22U inject 22 [facility] 1-06 Units ity of ([place]ESIB[place] 00:[place] skin [facility] U-100) 100 daily. Branch unit/mL (3 mL) InPn insulin 2020- Yes [id number] 5U inject [facility] lispro-a[facility] 1-06 5-14 Units it y of 100 unit/mL 00:00: under the [place] InPn 00 skin 3 Medical (three) Branch times daily with meals. Insulin 2020- Yes [id number] 1{each} inject 1 [facility], 1-06 Each under ity o f Disposable, 00:00: the skin [place] (PEN 00 before Medical NEEDLE) 31 meals and Bran ch gauge x at 3/16" Ndle bedtime. Use as directed insulin 2020- Yes [id number] 22U inject 22 [facility] 1-06 Units ity of (TRESIB[place] 00:[place]: [place] skin Medical U-100) 100 daily. Branch unit/mL (3 mL) InPn insulin 2020- Yes [id number] 5U inject [facility] lispro-aabc 1-06 5-14 Units it y of 100 unit/mL 00:00: under the [place] InPn 00 skin 3 Medical (three) Branch times daily with meals. Insulin 2020- Yes [id number] 1{each} inject 1 [facility], 1-06 Each under ity o f Disposable, 00:00: the skin [place] (PEN 00 before Medical NEEDLE) 31 meals and Bran ch gauge x at 3/16" Ndle bedtime. Use as directed insulin 2019- Yes [id number] 22U inject 22 [facility] 1-06 Units ity of (TRESIBA 00:[place]: [place] skin Medical U-100) 100 daily. Branch unit/mL (3 mL) InPn insulin 2020- Yes [id number] 5U inject [facility] lispro-aabc 1-06 5-14 Units it y of 100 unit/mL 00:00: under the [place] InPn 00 skin 3 Medical (three) Branch times daily with meals. insulin 2019- Yes [id number] 22U inject 22 [facility] 1-06 Units ity of ([place]ESIB[place] 00:[place]: [place] skin Medical U-100) 100 daily. Branch unit/mL (3 mL) In gabapentin 2019- Yes [id number] 300mg Take 1 [facility] 300 mg 1-06 capsule by ity of capsule 00:00: mouth 2 00 (two) Medical times Branch daily. insulin 2019- Yes [id number] 5U inject [facility] lispro-a[facility] 1-06 5-14 Units it y of 100 unit/mL 00:00: under the [place] InPn 00 skin 3 Medical (three) Branch times daily with meals. Insulin 2019- Yes [id number] 1{each} inject 1 [facility], 1-06 Each under ity o f Disposable, 00:00: the skin [place] (PEN 00 before Medical NEEDLE) 31 meals and Bran ch gauge x at 3/16" Ndle bedtime. Use as directed Insulin 2019- Yes [id number] 1{each} inject 1 [facility], 1-06 Each under ity o f Disposable, 00:00: the skin [place] (PEN 00 before Medical NEEDLE) 31 meals and Bran ch gauge x at 3/16" Ndle bedtime. Use as directed insulin 2019- Yes [id number] 22U inject 22 [facility] 1-06 Units ity of (TRESIB[place] 00:[place]: [place] skin Medical U-100) 100 daily. Branch unit/mL (3 mL) InPn insulin 2020- Yes [id number] 5U inject [facility] lispro-aabc 1-06 5-14 Units it y of 100 unit/mL 00:00: under the [place] InPn 00 skin 3 Medical (three) Branch times daily with meals. gabapentin 2019- Yes [id number] 300mg Take 1 [facility] 300 mg 1-06 capsule by ity of capsule 00:00: mouth 2 [place] (two) Medical times Branch daily. Insulin 2019- Yes [id number] 1{each} inject 1 [facility], 1-06 Each under ity o f Disposable, 00:00: the skin [place] (PEN 00 before Medical NEEDLE) 31 meals and Bran ch gauge x at 3/16" Ndle bedtime. Use as directed insulin 2019- Yes [id number] 22U inject 22 [facility] 1-06 Units ity of (TRESIBA 00:[place]: [place] skin Medical U-100) 100 daily. Branch unit/mL (3 mL) InPn insulin 2019- Yes [id number] 5U inject [facility] lispro-a[facility] 1-06 5-14 Units it y of 100 unit/mL 00:00: under the [place] InPn 00 skin 3 Medical (three) Branch times daily with meals. gabapentin 2019- Yes [id number] 300mg Take 1 [facility] 300 mg 1-06 capsule by ity of capsule 00:00: mouth 2 [place] (two) Medical times Branch daily. Insulin 2019- Yes [id number] 1{each} inject 1 [facility], 1-06 Each under ity o f Disposable, 00:00: the skin [place] (PEN 00 before Medical NEEDLE) 31 meals and Bran ch gauge x at 3/16" Ndle bedtime. Use as directed insulin 2019- Yes [id number] 22U inject 22 [facility] 1-06 Units ity of (TRESIBA 00:[place]: [place] skin Medical U-100) 100 daily. Branch unit/mL (3 mL) InPn insulin 2019- Yes [id number] 5U inject [facility] lispro-aabc 1-06 5-14 Units it y of 100 unit/mL 00:00: under the [place] InPn 00 skin 3 Medical (three) Branch times daily with meals. gabapentin 2019-08 Yes [id number] 300mg Take 1 [facility] 300 mg 1-06 capsule by ity of capsule 00:00: mouth 2 (two) Medical times Branch daily. Insulin 2019-08 Yes [id number] 1{each} inject 1 [facility], 1-06 Each under ity o f Disposable, 00:00: the skin [place] (PEN 00 before Medical NEEDLE) 31 meals and Bran ch gauge x at 3/16" Ndle bedtime. Use as directed insulin 2019-08 Yes [id number] 22U inject 22 [facility] 1-06 Units ity of (TRESIBA 00:[place]: [place] skin Medical U-100) 100 daily. Branch unit/mL (3 mL) InPn insulin 2019-08 Yes [id number] 5U inject [facility] lispro-a[facility] 1-06 5-14 Units it y of 100 unit/mL 00:00: under the [place] InPn 00 skin 3 Medical (three) Branch times daily with meals. gabapentin 2019-08 Yes [id number] 300mg Take 1 [facility] 300 mg 1-06 capsule by ity of capsule 00:00: mouth 2 (two) Medical times Branch daily. Insulin 2019-08 Yes [id number] 1{each} inject 1 [facility], 1-06 Each under ity o f Disposable, 00:00: the skin [place] (PEN 00 before Medical NEEDLE) 31 meals and Bran ch gauge x at 3/16" Ndle bedtime. Use as directed insulin 2019- Yes [id number] 22U inject 22 [facility] 1-06 Units ity of (TRESIBA 00:[place]: [place] skin Medical U-100) 100 daily. Branch unit/mL (3 mL) InPn insulin 2019- Yes [id number] 5U inject [facility] lispro-a[facility] 1-06 5-14 Units it y of 100 unit/mL 00:00: under the [place] InPn 00 skin 3 Medical (three) Branch times daily with meals. gabapentin 2019- Yes [id number] 300mg Take 1 [facility] 300 mg 1-06 capsule by ity of capsule 00:00: mouth 2 (two) Medical times Branch daily. Insulin 2019-08 Yes [id number] 1{each} inject 1 [facility], 1-06 Each under ity o f Disposable, 00:00: the skin [place] (PEN 00 before Medical NEEDLE) 31 meals and Bran ch gauge x at 3/16" Ndle bedtime. Use as directed insulin 2019-08 Yes [id number] 22U inject 22 [facility] 1-06 Units ity of (TRESIBA 00:[place]: [place] 00 skin Medical U-100) 100 daily. Branch unit/mL (3 mL) InPn insulin 2019-08 Yes [id number] 5U inject [facility] lispro-a[facility] 1-06 5-14 Units it y of 100 unit/mL 00:00: under the [place] InPn 00 skin 3 Medical (three) Branch times daily with meals. gabapentin 2019-08 Yes [id number] 300mg Take 1 [facility] 300 mg 1-06 capsule by ity of capsule 00:00: mouth 2 (two) Medical times Branch daily. Insulin 2019-08 Yes [id number] 1{each} inject 1 [facility], 1-06 Each under ity o f Disposable, 00:00: the skin [place] (PEN 00 before Medical NEEDLE) 31 meals and Bran ch gauge x at 3/16" Ndle bedtime. Use as directed insulin 2019-08 Yes [id number] 22U inject 22 [facility] 1-06 Units ity of (TRESIBA 00:[place]: [place] skin Medical U-100) 100 daily. Branch unit/mL (3 mL) InPn insulin 2019- Yes [id number] 5U inject [facility] lispro-a[facility] 1-06 5-14 Units it y of 100 unit/mL 00:00: under the [place] InPn 00 skin 3 Medical (three) Branch times daily with meals. gabapentin 2019- Yes [id number] 300mg Take 1 [facility] 300 mg 1-06 capsule by ity of capsule 00:00: mouth 2 (two) Medical times Branch daily. Insulin 2019-08 Yes [id number] 1{each} inject 1 [facility], 1-06 Each under ity o f Disposable, 00:00: the skin [place] (PEN 00 before Medical NEEDLE) 31 meals and Bran ch gauge x at 3/16" Ndle bedtime. Use as directed insulin 2020- Yes [id number] 22U inject 22 [facility] 1-06 Units ity of (TRESIBA 00:[place]: [place] 00 skin Medical U-100) 100 daily. Branch unit/mL (3 mL) InPn insulin 2020- Yes [id number] 5U inject [facility]-a[facility] 1-06 5-14 Units it y of 100 unit/mL 00:00: under the [place] InPn 00 skin 3 Medical (three) Branch times daily with meals. gabapentin 2019- Yes [id number] 300mg Take 1 [facility] 300 mg 1-06 capsule by ity of capsule 00:00: mouth 2 (two) Medical times Branch daily. Insulin 2019- Yes [id number] 1{each} inject 1 [facility], 1-06 Each under ity o f Disposable, 00:00: the skin [place] (PEN 00 before Medical NEEDLE) 31 meals and Bran ch gauge x at 3/16" Ndle bedtime. Use as directed insulin 2019- Yes [id number] 22U inject 22 [facility] 1-06 Units ity of (TRESIBA 00:[place]: [place] 00 skin Medical U-100) 100 daily. Branch unit/mL (3 mL) InPn insulin 2019- Yes [id number] 5U inject [facility] lispro-a[facility] 1-06 5-14 Units it y of 100 unit/mL 00:00: under the [place] InPn 00 skin 3 Medical (three) Branch times daily with meals. gabapentin 2019- Yes [id number] 300mg Take 1 [facility] 300 mg 1-06 capsule by ity of capsule 00:00: mouth 2 (two) Medical times Branch daily. Insulin 2019- Yes [id number] 1{each} inject 1 [facility], 1-06 Each under ity o f Disposable, 00:00: the skin [place] (PEN 00 before Medical NEEDLE) 31 meals and Bran ch gauge x at 3/16" Ndle bedtime. Use as directed insulin 2019- Yes [id number] 22U inject 22 [facility] 1-06 Units ity of (TRESIBA 00:[place]: [place] 00 skin Medical U-100) 100 daily. Branch unit/mL (3 mL) InPn insulin 2020- Yes [id number] 5U inject [facility] lispro-aabc 1-06 5-14 Units it y of 100 unit/mL 00:00: under the [place] InPn 00 skin 3 Medical (three) Branch times daily with meals. gabapentin 2019- Yes [id number] 300mg Take 1 [facility] 300 mg 1-06 capsule by ity of capsule 00:00: mouth 2 [place] (two) Medical times Branch daily. Insulin 2019- Yes [id number] 1{each} inject 1 [facility], 1-06 Each under ity o f Disposable, 00:00: the skin [place] (PEN 00 before Medical NEEDLE) 31 meals and Bran ch gauge x at 3/16" Ndle bedtime. Use as directed insulin 2019- Yes [id number] 22U inject 22 [facility] 1-06 Units ity of (TRESIBA 00:[place]: [place] 00 skin Medical U-100) 100 daily. Branch unit/mL (3 mL) InPn insulin 2019- Yes [id number] 5U inject [facility] lispro-aabc 1-06 5-14 Units it y of 100 unit/mL 00:00: under the [place] InPn 00 skin 3 Medical (three) Branch times daily with meals. gabapentin 2019- Yes [id number] 300mg Take 1 [facility] 300 mg 1-06 capsule by ity of capsule 00:00: mouth 2 [place] (two) Medical times Branch daily. Insulin 2019- Yes [id number] 1{each} inject 1 [facility], 1-06 Each under ity o f Disposable, 00:00: the skin [place] (PEN 00 before Medical NEEDLE) 31 meals and Bran ch gauge x at 3/16" Ndle bedtime. Use as directed insulin 2019- Yes [id number] 22U inject 22 [facility] 1-06 Units ity of (TRESIBA 00:00: [place] 00 skin Medical U-100) 100 daily. Branch unit/mL (3 mL) InPn insulin 2019- Yes [id number] 5U inject [facility] lispro-aabc 1-06 5-14 Units it y of 100 unit/mL 00:00: under the [place] InPn 00 skin 3 Medical (three) Branch times daily with meals. gabapentin 2019-08 Yes [id number] 300mg Take 1 [facility] 300 mg 1-06 capsule by ity of capsule 00:00: mouth 2 (two) Medical times Branch daily. Insulin 2019-08 Yes [id number] 1{each} inject 1 [facility], 1-06 Each under ity o f Disposable, 00:00: the skin [place] (PEN 00 before Medical NEEDLE) 31 meals and Bran ch gauge x at 3/16" Ndle bedtime. Use as directed insulin 2019- Yes [id number] 22U inject 22 [facility] 1-06 Units ity of (TRESIBA 00:00: [place] 00 skin Medical U-100) 100 daily. Branch unit/mL (3 mL) InPn insulin 2019-08 Yes [id number] 5U inject [facility] lispro-aabc 1-06 5-14 Units it y of 100 unit/mL 00:00: under the [place] In 00 skin 3 Medical (three) Branch times daily with meals. gabapentin 2019-08 Yes [id number] 300mg Take 1 [facility] 300 mg 1-06 capsule by ity of capsule 00:00: mouth 2 (two) Medical times Branch daily. Insulin 2019- Yes [id number] 1{each} inject 1 [facility], 1-06 Each under ity o f Disposable, 00:00: the skin [place] (PEN 00 before Medical NEEDLE) 31 meals and Bran ch gauge x at 3/16" Ndle bedtime. Use as directed insulin 2019- Yes [id number] 22U inject 22 [facility] 1-06 Units ity of (TRESIBA 00:[place]: [place] 00 skin Medical U-100) 100 daily. Branch unit/mL (3 mL) InPn insulin 2019- Yes [id number] 5U inject [facility] lispro-aabc 1-06 5-14 Units it y of 100 unit/mL 00:00: under the [place] InPn 00 skin 3 Medical (three) Branch times daily with meals. gabapentin 2019- Yes [id number] 300mg Take 1 [facility] 300 mg 1-06 capsule by ity of capsule 00:00: mouth 2 (two) Medical times Branch daily. Insulin 2019-08 Yes [id number] 1{each} inject 1 [facility], 1-06 Each under ity o f Disposable, 00:00: the skin [place] (PEN 00 before Medical NEEDLE) 31 meals and Bran ch gauge x at 3/16" Ndle bedtime. Use as directed insulin 2019- Yes [id number] 22U inject 22 [facility] 1-06 Units ity of (TRESIBA 00:[place]: [place] 00 skin Medical U-100) 100 daily. Branch unit/mL (3 mL) InPn insulin 2019- Yes [id number] 5U inject [facility] lispro-aabc 1-06 5-14 Units it y of 100 unit/mL 00:00: under the [place] InPn 00 skin 3 Medical (three) Branch times daily with meals. gabapentin 2019-08 Yes [id number] 300mg Take 1 [facility] 300 mg 1-06 capsule by ity of capsule 00:00: mouth 2 (two) Medical times Branch daily. Insulin 2019- Yes [id number] 1{each} inject 1 [facility], 1-06 Each under ity o f Disposable, 00:00: the skin [place] (PEN 00 before Medical NEEDLE) 31 meals and Bran ch gauge x at 3/16" Ndle bedtime. Use as directed insulin 2019- Yes [id number] 22U inject 22 [facility] 1-06 Units ity of (TRESIBA 00:[place]: [place] 00 skin Medical U-100) 100 daily. Branch unit/mL (3 mL) InPn insulin 2019- Yes [id number] 5U inject [facility] lispro-aabc 1-06 5-14 Units it y of 100 unit/mL 00:00: under the [place] InPn 00 skin 3 Medical (three) Branch times daily with meals. gabapentin 2019- Yes [id number] 300mg Take 1 [facility] 300 mg 1-06 capsule by ity of capsule 00:00: mouth 2 (two) Medical times Branch daily. Insulin 2019- Yes [id number] 1{each} inject 1 [facility], 1-06 Each under ity o f Disposable, 00:00: the skin [place] (PEN 00 before Medical NEEDLE) 31 meals and Bran ch gauge x at 3/16" Ndle bedtime. Use as directed insulin 2020- Yes [id number] 22U inject 22 [facility] 1-06 Units ity of (TRESIBA 00:00: [place] 00 skin Medical U-100) 100 daily. Branch unit/mL (3 mL) InPn insulin 2020- Yes [id number] 5U inject [facility] lispro-aabc 1-06 5-14 Units it y of 100 unit/mL 00:00: under the [place] InPn 00 skin 3 Medical (three) Branch times daily with meals. gabapentin 2019- Yes [id number] 300mg Take 1 [facility] 300 mg 1-06 capsule by ity of capsule 00:00: mouth 2 [place] (two) Medical times Branch daily. Insulin 2019- Yes [id number] 1{each} inject 1 [facility], 1-06 Each under ity o f Disposable, 00:00: the skin [place] (PEN 00 before Medical NEEDLE) 31 meals and Bran ch gauge x at 3/16" Ndle bedtime. Use as directed insulin 2019- Yes [id number] 22U inject 22 [facility] 1-06 Units ity of (TRESIBA 00:[place]: [place] 00 skin Medical U-100) 100 daily. Branch unit/mL (3 mL) InPn insulin 2019- Yes [id number] 5U inject [facility] lispro-aabc 1-06 5-14 Units it y of 100 unit/mL 00:00: under the [place] InPn 00 skin 3 Medical (three) Branch times daily with meals. gabapentin 2020- Yes [id number] 300mg Take 1 [facility] 300 mg 1-06 capsule by ity of capsule 00:00: mouth 2 [place] (two) Medical times Branch daily. Insulin 2019- Yes [id number] 1{each} inject 1 [facility] [place], 1-06 Each under ity o f Disposable, 00:00: the skin [place] (PEN 00 before Medical NEEDLE) 31 meals and Bran ch gauge x at 3/16" Ndle bedtime. Use as directed insulin 2019- Yes [id number] 22U inject 22 [facility] 1-06 Units ity of (TRESIBA 00:[place]: [place] 00 skin Medical U-100) 100 daily. Branch unit/mL (3 mL) InPn insulin 2020- Yes [id number] 5U inject [facility] lispro-aabc 1-06 5-14 Units it y of 100 unit/mL 00:00: under the [place] InPn 00 skin 3 Medical (three) Branch times daily with meals. gabapentin 2019- Yes [id number] 300mg Take 1 [facility] 300 mg 1-06 capsule by ity of capsule 00:00: mouth 2 [place] (two) Medical times Branch daily. insulin 2019- Yes [id number] 22U inject 22 [facility] 1-06 Units ity of (TRESIBA 00:00: [place] 00 skin Medical U-100) 100 daily. Branch unit/mL (3 mL) InPn Insulin 2019- Yes [id number] 1{each} inject 1 [facility], 1-06 Each under ity o f Disposable, 00:00: the skin [place] (PEN 00 before Medical NEEDLE) 31 meals and Bran ch gauge x at 3/16" Ndle bedtime. Use as directed insulin 2019- Yes [id number] 5U inject [facility] lispro-aabc 1-06 5-14 Units it y of 100 unit/mL 00:00: under the [place] InPn 00 skin 3 Medical (three) Branch times daily with meals. gabapentin 2019- Yes [id number] 300mg Take 1 [facility] 300 mg 1-06 capsule by ity of capsule 00:00: mouth 2 [place] (two) Medical times Branch daily. Insulin 2019- Yes [id number] 1{each} inject 1 [facility] [place], 1-06 Each under ity o f Disposable, 00:00: the skin [place] (PEN 00 before Medical NEEDLE) 31 meals and Bran ch gauge x at 3/16" Ndle bedtime. Use as directed insulin 2019- Yes [id number] 22U inject 22 [facility] 1-06 Units ity of (TRESIBA 00:[place]: [place] 00 skin Medical U-100) 100 daily. Branch unit/mL (3 mL) InPn insulin 2019- Yes [id number] 5U inject [facility] lispro-aabc 1-06 5-14 Units it y of 100 unit/mL 00:00: under the [place] InPn 00 skin 3 Medical (three) Branch times daily with meals. Insulin 2019-08 Yes [id number] 1{each} inject 1 [facility] [place], 1-06 Each under ity o f Disposable, 00:00: the skin [place] (PEN 00 before Medical NEEDLE) 31 meals and Bran ch gauge x at 3/16" Ndle bedtime. Use as directed gabapentin 2019-08- No [id number] 300mg Take 1 [facility] 300 mg 08-20 capsule by ity of capsule 00:00: 00:00 mouth 2 [place] 00 :00 (two) Medical times Branch daily. gabapentin 2019-08- No [id number] 300mg Take 1 [facility] 300 mg 08-20 capsule by ity of capsule 00:00: 00:00 mouth 2 [place] 00 :00 (two) Medical times Branch daily. gabapentin 2019-08- No [id number] 300mg Take 1 [facility] 300 mg 08-20 capsule by ity of capsule 00:00: 00:00 mouth 2 [place] 00 :00 (two) Medical times Branch daily. gabapentin 2019-08- No [id number] 300mg Take 1 [facility] 300 mg 08-20 capsule by ity of capsule 00:00: 00:00 mouth 2 [place] 00 :00 (two) Medical times Branch daily. No known 2018-0 No No known [facility] medications 4[facility] [facility] No known 2018-0 No No known [facility] di medications 4-[address] [facility] l Immunizations Ordered Immunization Filled Immunization Date Status Commen ts Source Name Name Meningococcal 2007-01-05 Completed [facility] Polysaccharide 00:00:00 [facility] (groups A, C, Y and Branc h W-135) conjugate vaccine (MCV4P) TDAP 2007-01-05 Completed [facility] 00:00:00 [facility] Meningococcal 2007-01-05 Completed [facility] of Polysaccharide 00:00:00 [facility] (groups A, C, Y and Branc h W-135) conjugate vaccine (MCV4P) TDAP 2007-01-05 Completed University 00:00:00 [facility] Meningococcal 2007-01-05 Completed [facility] of Polysaccharide 00:00:00 [place] [facility] (groups A, C, Y and Branc h W-135) conjugate vaccine (MCV4P) TDAP 2007-01-05 Completed [facility] of 00:00:00 [facility] Meningococcal 2007-01-05 Completed [facility] of Polysaccharide 00:00:00 [place] [facility] (groups A, C, Y and Branc h W-135) conjugate vaccine (MCV4P) TDAP 2007-01-05 Completed [facility] of 00:00:00 [facility] Meningococcal 2007-01-05 Completed [facility] of Polysaccharide 00:00:00 [place] [facility] (groups A, C, Y and Branc h W-135) conjugate vaccine (MCV4P) TDAP 2007-01-05 Completed [facility] of 00:00:00 [facility] Meningococcal 2007-01-05 Completed [facility] of Polysaccharide 00:00:00 [place] [facility] (groups A, C, Y and Branc h W-135) conjugate vaccine (MCV4P) Meningococcal 2007-01-05 Completed [facility] of Polysaccharide 00:00:00 [place] [facility] (groups A, C, Y and Branc h W-135) conjugate vaccine (MCV4P) TDAP 2007-01-05 Completed University of 00:00:00 [facility] TDAP 2007-01-05 Completed University of 00:00:00 [facility] Meningococcal 2007-01-05 Completed [facility] of Polysaccharide 00:00:00 [place] [facility] (groups A, C, Y and Branc h W-135) conjugate vaccine (MCV4P) TDAP 2007-01-05 Completed [facility] of 00:00:00 [facility] Meningococcal 2007-01-05 Completed [facility] of Polysaccharide 00:00:00 [place] [facility] (groups A, C, Y and Branc h W-135) conjugate vaccine (MCV4P) TDAP 2007-01-05 Completed [facility] of 00:00:00 [facility] Meningococcal 2007-01-05 Completed [facility] of Polysaccharide 00:00:00 [place] [facility] (groups A, C, Y and Branc h W-135) conjugate vaccine (MCV4P) TDAP 2007-01-05 Completed University of 00:00:00 [facility] Meningococcal 2007-01-05 Completed [facility] of Polysaccharide 00:00:00 [place] [facility] (groups A, C, Y and Branc h W-135) conjugate vaccine (MCV4P) TDAP 2007-01-05 Completed University of 00:00:00 [facility] Meningococcal 2007-01-05 Completed [facility] of Polysaccharide 00:00:00 [place] [facility] (groups A, C, Y and Branc h W-135) conjugate vaccine (MCV4P) TDAP 2007-01-05 Completed University of 00:00:00 [facility] Meningococcal 2007-01-05 Completed [facility] of Polysaccharide 00:00:00 [place] [facility] (groups A, C, Y and Branc h W-135) conjugate vaccine (MCV4P) TDAP 2007-01-05 Completed University of 00:00:00 [facility] Meningococcal 2007-01-05 Completed [facility] of Polysaccharide 00:00:00 [place] [facility] (groups A, C, Y and Branc h W-135) conjugate vaccine (MCV4P) TDAP 2007-01-05 Completed University of 00:00:00 [facility] Meningococcal 2007-01-05 Completed [facility] of Polysaccharide 00:00:00 [place] [facility] (groups A, C, Y and Branc h W-135) conjugate vaccine (MCV4P) TDAP 2007-01-05 Completed University of 00:00:00 [facility] Meningococcal 2007-01-05 Completed [facility] of Polysaccharide 00:00:00 [place] [facility] (groups A, C, Y and Branc h W-135) conjugate vaccine (MCV4P) TDAP 2007-01-05 Completed University of 00:00:00 [facility] Meningococcal 2007-01-05 Completed [facility] of Polysaccharide 00:00:00 [place] [facility] (groups A, C, Y and Branc h W-135) conjugate vaccine (MCV4P) TDAP 2007-01-05 Completed University of 00:00:00 [facility] Meningococcal 2007-01-05 Completed [facility] of Polysaccharide 00:00:00 [place] [facility] (groups A, C, Y and Branc h W-135) conjugate vaccine (MCV4P) TDAP 2007-01-05 Completed University of 00:00:00 [facility] Meningococcal 2007-01-05 Completed [facility] of Polysaccharide 00:00:00 [place] [facility] (groups A, C, Y and Branc h W-135) conjugate vaccine (MCV4P) TDAP 2007-01-05 Completed University of 00:00:00 [facility] Meningococcal 2007-01-05 Completed [facility] of Polysaccharide 00:00:00 [place] [facility] (groups A, C, Y and Branc h W-135) conjugate vaccine (MCV4P) TDAP 2007-01-05 Completed University of 00:00:00 [facility] Meningococcal 2007-01-05 Completed [facility] Polysaccharide 00:00:00 [place] [facility] (groups A, C, Y and Branc h W-135) conjugate vaccine (MCV4P) TDAP 2007-01-05 Completed [facility] 00:00:00 [facility] Meningococcal 2007-01-05 Completed [facility] Polysaccharide 00:00:00 [place] [facility] (groups A, C, Y and Branc h W-135) conjugate vaccine (MCV4P) TDAP 2007-01-05 Completed [facility] 00:00:00 [facility] Meningococcal 2007-01-05 Completed [facility] Polysaccharide 00:00:00 [facility] (groups A, C, Y and Branc h W-135) conjugate vaccine (MCV4P) TDAP 2007-01-05 Completed [facility] 00:00:00 [facility] Meningococcal 2007-01-05 Completed [facility] Polysaccharide 00:00:00 [place] [facility] (groups A, C, Y and Branc h W-135) conjugate vaccine (MCV4P) TDAP 2007-01-05 Completed [facility] 00:00:00 [facility] Meningococcal 2007-01-05 Completed [facility] Polysaccharide 00:00:00 [place] [facility] (groups A, C, Y and Branc h W-135) conjugate vaccine (MCV4P) TDAP 2007-01-05 Completed [facility] 00:00:00 [facility] Meningococcal 2007-01-05 Completed [facility] Polysaccharide 00:00:00 [place] [facility] (groups A, C, Y and Branc h W-135) conjugate vaccine (MCV4P) TDAP 2007-01-05 Completed [facility] 00:00:00 [facility] Meningococcal 2007-01-05 Completed [facility] Polysaccharide 00:00:00 [place] [facility] (groups A, C, Y and Branc h W-135) conjugate vaccine (MCV4P) TDAP 2007-01-05 Completed [facility] 00:00:00 [facility] Meningococcal 2007-01-05 Completed [facility] Polysaccharide 00:00:00 [place] [facility] (groups A, C, Y and Branc h W-135) conjugate vaccine (MCV4P) TDAP 2007-01-05 Completed [facility] 00:00:00 [facility] Meningococcal 2007-01-05 Completed [facility] Polysaccharide 00:00:00 [place] [facility] (groups A, C, Y and Branc h W-135) conjugate vaccine (MCV4P) TDAP 2007-01-05 Completed [facility] 00:00:00 [facility] Meningococcal 2007-01-05 Completed [facility] Polysaccharide 00:00:00 [place] [facility] (groups A, C, Y and Branc h W-135) conjugate vaccine (MCV4P) TDAP 2007-01-05 Completed [facility] 00:00:00 [facility] Meningococcal 2007-01-05 Completed [facility] Polysaccharide 00:00:00 [place] [facility] (groups A, C, Y and Branc h W-135) conjugate vaccine (MCV4P) TDAP 2007-01-05 Completed [facility] 00:00:00 [facility] Meningococcal 2007-01-05 Completed [facility] Polysaccharide 00:00:00 [place] [facility] (groups A, C, Y and Branc h W-135) conjugate vaccine (MCV4P) TDAP 2007-01-05 Completed [facility] 00:00:00 [facility] Meningococcal 2007-01-05 Completed [facility] Polysaccharide 00:00:00 [place] [facility] (groups A, C, Y and Branc h W-135) conjugate vaccine (MCV4P) TDAP 2007-01-05 Completed [facility] 00:00:00 [facility] Influenza Virus 2005-06-29 Completed [facility] Vaccine - Whole 00:00:00 [facility] Influenza Virus 2005-06-29 Completed [facility] Vaccine - Whole 00:00:00 [facility] HEPATITIS A 2003-05-16 Completed [facility] 00:00:00 [facility] Hep B, Adol or Pedi 2003-05-16 Completed [facility] Dosage 00:00:00 [facility] TD, NOS 2003-05-16 Completed [facility] 00:00:00 [facility] HEPATITIS A 2003-05-16 Completed [facility] 00:00:00 [facility] Hep B, Adol or Pedi 2003-05-16 Completed [facility] Dosage 00:00:00 [facility] TD, NOS 2003-05-16 Completed [facility] 00:00:00 [facility] Hep B, Adol or Pedi 2002-12-24 Completed [facility] Dosage 00:00:00 [facility] Hep B, Adol or Pedi 2002-12-24 Completed [facility] Dosage 00:00:00 [facility] HEPATITIS A 2002-11-22 Completed [facility] 00:00:[address] [facility] Hep B, Adol or Pedi 2002-11-22 Completed [facility]ive rs[facility] of Dosage 00:00:[address] [facility] HEPATITIS A 2002-11-22 Completed [facility] 00:00:[address] [facility] Hep B, Adol or Pedi 2002-11-22 Completed [facility] of Dosage 00:00:[address] [facility] MMR 1995-05-13 Completed [facility] 00:00:[address] [facility] Polio (IPV/OPV) 1995-05-13 Completed [facility] 00:00:[address] [facility] DTAP 1995-05-13 Completed [facility] 00:00:00 [facility] DTAP 1995-05-13 Completed [facility] 00:00:[address] [facility] DTP 1995-05-13 Completed [facility] 00:00:[address] [facility] MMR 1995-05-13 Completed [facility] 00:00:[address] [facility] Polio (IPV/OPV) 1995-05-13 Completed [facility] 00:00:[address] [facility] DTAP 1995-05-13 Completed [facility] 00:00:[address] [facility] DTP 1995-05-13 Completed [facility] 00:00:[address] [facility] DTP 1995-05-13 Completed [facility] 00:00:[address] [facility] MMR 1995-05-13 Completed [facility] 00:00:[address] [facility] Polio (IPV/OPV) 1995-05-13 Completed [facility] 00:00:[address] [facility] DTAP 1995-05-13 Completed [facility] 00:00:[address] [facility] DTP 1995-05-13 Completed [facility] 00:00:[address] [facility] MMR 1995-05-13 Completed [facility] 00:00:00 [facility] Polio (IPV/OPV) 1995-05-13 Completed [facility] 00:00:[address] [facility] MMR 1995-05-13 Completed [facility] 00:00:00 [facility] DTAP 1995-05-13 Completed [facility] 00:00:[address] [facility] DTP 1995-05-13 Completed [facility] 00:00:[address] [facility] MMR 1995-05-13 Completed [facility] 00:00:00 [facility] Polio (IPV/OPV) 1995-05-13 Completed [facility] 00:00:00 [facility] DTAP 1995-05-13 Completed [facility] 00:00:00 [facility] Polio (IPV/OPV) 1995-05-13 Completed [facility] 00:00:00 [facility] DTP 1995-05-13 Completed [facility] 00:00:00 [facility] MMR 1995-05-13 Completed [facility] 00:00:00 [facility] Polio (IPV/OPV) 1995-05-13 Completed [facility] 00:00:00 [facility] DTAP 1995-05-13 Completed [facility] 00:00:00 [facility] DTP 1995-05-13 Completed [facility] 00:00:[address] [facility] MMR 1995-05-13 Completed [facility] 00:00:00 [facility] Polio (IPV/OPV) 1995-05-13 Completed [facility] of 00:00:[address] [facility] DTAP 1995-05-13 Completed [facility] 00:00:[address] [facility] DTP 1995-05-13 Completed [facility] 00:00:[address] [facility] MMR 1995-05-13 Completed [facility] 00:00:00 [facility] Polio (IPV/OPV) 1995-05-13 Completed [facility] of 00:00:[address] [facility] DTAP 1995-05-13 Completed [facility] 00:00:[address] [facility] DTP 1995-05-13 Completed [facility] 00:00:[address] [facility] MMR 1995-05-13 Completed [facility] 00:00:00 [facility] Polio (IPV/OPV) 1995-05-13 Completed [facility] 00:00:00 [facility] DTAP 1995-05-13 Completed [facility] 00:00:00 [facility] DTP 1995-05-13 Completed [facility] 00:00:00 [facility] MMR 1995-05-13 Completed [facility] 00:00:00 [facility] Polio (IPV/OPV) 1995-05-13 Completed [facility] 00:00:00 [facility] DTAP 1995-05-13 Completed [facility] 00:00:00 [facility] DTP 1995-05-13 Completed [facility] 00:00:[address] [facility] MMR 1995-05-13 Completed [facility] 00:00:00 [facility] Polio (IPV/OPV) 1995-05-13 Completed [facility] 00:00:00 [facility] DTAP 1995-05-13 Completed [facility] 00:00:00 [facility] DTP 1995-05-13 Completed [facility] 00:00:00 [facility] MMR 1995-05-13 Completed [facility] 00:00:00 [facility] Polio (IPV/OPV) 1995-05-13 Completed [facility] 00:00:00 [facility] DTAP 1995-05-13 Completed [facility] 00:00:00 [facility] DTP 1995-05-13 Completed [facility] 00:00:00 [facility] MMR 1995-05-13 Completed [facility] 00:00:00 [facility] Polio (IPV/OPV) 1995-05-13 Completed [facility] 00:00:00 [facility] DTAP 1995-05-13 Completed [facility] 00:00:00 [facility] DTP 1995-05-13 Completed [facility] 00:00:[address] [facility] MMR 1995-05-13 Completed [facility] 00:00:00 [facility] Polio (IPV/OPV) 1995-05-13 Completed [facility] 00:00:00 [facility] DTAP 1995-05-13 Completed [facility] 00:00:00 [facility] DTP 1995-05-13 Completed [facility] 00:00:[address] [facility] MMR 1995-05-13 Completed [facility] 00:00:00 [facility] Polio (IPV/OPV) 1995-05-13 Completed [facility] of 00:00:[address] [facility] DTAP 1995-05-13 Completed [facility] 00:00:[address] [facility] DTP 1995-05-13 Completed [facility] 00:00:00 [facility] MMR 1995-05-13 Completed [facility] 00:00:00 [facility] Polio (IPV/OPV) 1995-05-13 Completed [facility] 00:00:00 [facility] DTAP 1995-05-13 Completed [facility] 00:00:00 [facility] DTP 1995-05-13 Completed [facility] 00:00:00 [facility] MMR 1995-05-13 Completed [facility] 00:00:00 [facility] Polio (IPV/OPV) 1995-05-13 Completed [facility] 00:00:00 [facility] DTAP 1995-05-13 Completed [facility] 00:00:00 [facility] DTAP 1995-05-13 Completed [facility] 00:00:00 [facility] DTP 1995-05-13 Completed [facility] 00:00:00 [facility] MMR 1995-05-13 Completed [facility] 00:00:00 [facility] Polio (IPV/OPV) 1995-05-13 Completed [facility] 00:00:00 [facility] DTP 1995-05-13 Completed [facility] 00:00:00 [facility] DTAP 1995-05-13 Completed [facility] 00:00:00 [facility] MMR 1995-05-13 Completed [facility] 00:00:00 [facility] DTP 1995-05-13 Completed [facility] 00:00:00 [facility] MMR 1995-05-13 Completed [facility] 00:00:00 [facility] Polio (IPV/OPV) 1995-05-13 Completed [facility] 00:00:00 [facility] DTAP 1995-05-13 Completed [facility] 00:00:00 [facility] DTP 1995-05-13 Completed [facility] 00:00:00 [facility] Polio (IPV/OPV) 1995-05-13 Completed [facility] 00:00:00 [facility] MMR 1995-05-13 Completed [facility] 00:00:00 [facility] Polio (IPV/OPV) 1995-05-13 Completed [facility] 00:00:00 [facility] DTAP 1995-05-13 Completed [facility] 00:00:00 [facility] DTP 1995-05-13 Completed [facility] 00:00:00 [facility] MMR 1995-05-13 Completed [facility] 00:00:00 [facility] Polio (IPV/OPV) 1995-05-13 Completed [facility] 00:00:00 [facility] DTAP 1995-05-13 Completed [facility] 00:00:00 [facility] DTP 1995-05-13 Completed [facility] 00:00:00 [facility] MMR 1995-05-13 Completed [facility] 00:00:00 [facility] Polio (IPV/OPV) 1995-05-13 Completed [facility] 00:00:00 [facility] DTAP 1995-05-13 Completed [facility] 00:00:00 [facility] DTP 1995-05-13 Completed [facility] 00:00:00 [facility] MMR 1995-05-13 Completed [facility] 00:00:00 [facility] Polio (IPV/OPV) 1995-05-13 Completed [facility] 00:00:00 [facility] DTAP 1995-05-13 Completed [facility] 00:00:00 [facility] DTAP 1995-05-13 Completed [facility] 00:00:00 [facility] DTP 1995-05-13 Completed [facility] 00:00:00 [facility] MMR 1995-05-13 Completed [facility] 00:00:00 [facility] Polio (IPV/OPV) 1995-05-13 Completed [facility] 00:00:00 [facility] DTP 1995-05-13 Completed [facility] 00:00:00 [facility] DTAP 1995-05-13 Completed [facility] 00:00:00 [facility] DTP 1995-05-13 Completed [facility] 00:00:00 [facility] MMR 1995-05-13 Completed [facility] 00:00:00 [facility] Polio (IPV/OPV) 1995-05-13 Completed [facility] 00:00:00 [facility] DTAP 1995-05-13 Completed [facility] 00:00:00 [facility] DTP 1995-05-13 Completed [facility] 00:00:00 [facility] MMR 1995-05-13 Completed [facility] 00:00:00 [facility] MMR 1995-05-13 Completed [facility] 00:00:00 [facility] Polio (IPV/OPV) 1995-05-13 Completed [facility] of 00:00:[address] [facility] DTAP 1995-05-13 Completed [facility] 00:00:[address] [facility] DTP 1995-05-13 Completed [facility] 00:00:00 [facility] MMR 1995-05-13 Completed [facility] 00:00:00 [facility] Polio (IPV/OPV) 1995-05-13 Completed [facility] 00:00:00 [facility] Polio (IPV/OPV) 1995-05-13 Completed [facility] 00:00:00 [facility] DTAP 1995-05-13 Completed [facility] 00:00:00 [facility] DTP 1995-05-13 Completed [facility] 00:00:00 [facility] MMR 1995-05-13 Completed [facility] 00:00:00 [facility] Polio (IPV/OPV) 1995-05-13 Completed [facility] 00:00:00 [facility] DTAP 1995-05-13 Completed [facility] 00:00:00 [facility] DTP 1995-05-13 Completed [facility] 00:00:00 [facility] MMR 1995-05-13 Completed [facility] 00:00:00 [facility] Polio (IPV/OPV) 1995-05-13 Completed [facility] 00:00:00 [facility] DTAP 1995-05-13 Completed [facility] 00:00:00 [facility] DTP 1995-05-13 Completed [facility] 00:00:00 [facility] MMR 1995-05-13 Completed [facility] 00:00:00 [facility] Polio (IPV/OPV) 1995-05-13 Completed [facility] 00:00:00 [facility] DTAP 1995-05-13 Completed [facility] 00:00:[address] [facility] DTP 1995-05-13 Completed [facility] 00:00:00 [facility] MMR 1992-11-05 Completed [facility] 00:00:00 [facility] Polio (IPV/OPV) 1992-11-05 Completed [facility] of 00:00:[address] [facility] DTP 1992-11-05 Completed [facility] 00:00:[address] [facility] HIB 4 Dose Schedule 1992-11-05 Completed [facility] of 00:00:[address] [facility] MMR 1992-11-05 Completed [facility] 00:00:[address] [facility] Polio (IPV/OPV) 1992-11-05 Completed [facility] of 00:00:[address] [facility] DTP 1992-11-05 Completed [facility] 00:00:[address] [facility] DTP 1992-11-05 Completed [facility] 00:00:00 [facility] HIB 4 Dose Schedule 1992-11-05 Completed [facility] of 00:00:[address] [facility] MMR 1992-11-05 Completed [facility] 00:00:00 [facility] Polio (IPV/OPV) 1992-11-05 Completed [facility] 00:00:00 [facility] DTP 1992-11-05 Completed [facility] 00:00:00 [facility] HIB 4 Dose Schedule 1992-11-05 Completed [facility] of 00:00:[address] [facility] HIB 4 Dose Schedule 1992-11-05 Completed [facility] of 00:00:00 [facility] MMR 1992-11-05 Completed [facility] 00:00:00 [facility] Polio (IPV/OPV) 1992-11-05 Completed [facility] 00:00:00 [facility] MMR 1992-11-05 Completed [facility] 00:00:00 [facility] DTP 1992-11-05 Completed [facility] 00:00:00 [facility] HIB 4 Dose Schedule 1992-11-05 Completed [facility] of 00:00:00 [facility] MMR 1992-11-05 Completed [facility] 00:00:00 [facility] Polio (IPV/OPV) 1992-11-05 Completed [facility] 00:00:00 [facility] Polio (IPV/OPV) 1992-11-05 Completed [facility] 00:00:00 [facility] DTP 1992-11-05 Completed [facility] 00:00:00 [facility] HIB 4 Dose Schedule 1992-11-05 Completed [facility] 00:00:00 [facility] MMR 1992-11-05 Completed [facility] 00:00:00 [facility] Polio (IPV/OPV) 1992-11-05 Completed [facility] 00:00:00 [facility] DTP 1992-11-05 Completed [facility] 00:00:00 [facility] HIB 4 Dose Schedule 1992-11-05 Completed [facility] 00:00:00 [facility] MMR 1992-11-05 Completed [facility] 00:00:00 [facility] Polio (IPV/OPV) 1992-11-05 Completed [facility] 00:00:00 [facility] DTP 1992-11-05 Completed [facility] 00:00:00 [facility] HIB 4 Dose Schedule 1992-11-05 Completed [facility] 00:00:00 [facility] MMR 1992-11-05 Completed [facility] 00:00:00 [facility] Polio (IPV/OPV) 1992-11-05 Completed [facility] 00:00:00 [facility] DTP 1992-11-05 Completed [facility] 00:00:00 [facility] HIB 4 Dose Schedule 1992-11-05 Completed [facility] 00:00:00 [facility] MMR 1992-11-05 Completed [facility] 00:00:00 [facility] Polio (IPV/OPV) 1992-11-05 Completed [facility] 00:00:00 [facility] DTP 1992-11-05 Completed [facility] 00:00:00 [facility] HIB 4 Dose Schedule 1992-11-05 Completed [facility] 00:00:00 [facility] MMR 1992-11-05 Completed [facility] 00:00:00 [facility] Polio (IPV/OPV) 1992-11-05 Completed [facility] 00:00:00 [facility] DTP 1992-11-05 Completed [facility] 00:00:00 [facility] HIB 4 Dose Schedule 1992-11-05 Completed [facility] 00:00:00 [facility] MMR 1992-11-05 Completed [facility] 00:00:00 [facility] Polio (IPV/OPV) 1992-11-05 Completed [facility] 00:00:00 [facility] DTP 1992-11-05 Completed [facility] 00:00:00 [facility] HIB 4 Dose Schedule 1992-11-05 Completed [facility] 00:00:00 [facility] MMR 1992-11-05 Completed [facility] 00:00:00 [facility] Polio (IPV/OPV) 1992-11-05 Completed [facility] 00:00:00 [facility] DTP 1992-11-05 Completed [facility] 00:00:00 [facility] HIB 4 Dose Schedule 1992-11-05 Completed [facility] 00:00:00 [facility] MMR 1992-11-05 Completed [facility] 00:00:00 [facility] Polio (IPV/OPV) 1992-11-05 Completed [facility] 00:00:00 [facility] DTP 1992-11-05 Completed [facility] 00:00:00 [facility] HIB 4 Dose Schedule 1992-11-05 Completed [facility] 00:00:00 [facility] MMR 1992-11-05 Completed [facility] 00:00:00 [facility] Polio (IPV/OPV) 1992-11-05 Completed [facility] 00:00:00 [facility] DTP 1992-11-05 Completed [facility] 00:00:00 [facility] HIB 4 Dose Schedule 1992-11-05 Completed [facility] 00:00:00 [facility] MMR 1992-11-05 Completed [facility] 00:00:00 [facility] Polio (IPV/OPV) 1992-11-05 Completed [facility] 00:00:00 [facility] DTP 1992-11-05 Completed [facility] 00:00:00 [facility] HIB 4 Dose Schedule 1992-11-05 Completed [facility] 00:00:00 [facility] MMR 1992-11-05 Completed [facility] 00:00:00 [facility] Polio (IPV/OPV) 1992-11-05 Completed [facility] 00:00:00 [facility] DTP 1992-11-05 Completed [facility] 00:00:00 [facility] HIB 4 Dose Schedule 1992-11-05 Completed [facility] 00:00:00 [facility] MMR 1992-11-05 Completed [facility] 00:00:[address] [facility] Polio (IPV/OPV) 1992-11-05 Completed [facility] 00:00:00 [facility] DTP 1992-11-05 Completed [facility] 00:00:00 [facility] HIB 4 Dose Schedule 1992-11-05 Completed [facility] 00:00:00 [facility] MMR 1992-11-05 Completed [facility] 00:00:00 [facility] Polio (IPV/OPV) 1992-11-05 Completed [facility] 00:00:00 [facility] DTP 1992-11-05 Completed [facility] 00:00:00 [facility] HIB 4 Dose Schedule 1992-11-05 Completed [facility] 00:00:00 [facility] MMR 1992-11-05 Completed [facility] 00:00:00 [facility] DTP 1992-11-05 Completed [facility] 00:00:00 [facility] HIB 4 Dose Schedule 1992-11-05 Completed [facility] 00:00:00 [facility] MMR 1992-11-05 Completed [facility] 00:00:[address] [facility] Polio (IPV/OPV) 1992-11-05 Completed [facility] 00:00:[address] [facility] Polio (IPV/OPV) 1992-11-05 Completed [facility] 00:00:00 [facility] DTP 1992-11-05 Completed [facility] 00:00:00 [facility] HIB 4 Dose Schedule 1992-11-05 Completed [facility] 00:00:00 [facility] MMR 1992-11-05 Completed [facility] 00:00:[address] [facility] Polio (IPV/OPV) 1992-11-05 Completed [facility] 00:00:00 [facility] DTP 1992-11-05 Completed [facility] 00:00:00 [facility] HIB 4 Dose Schedule 1992-11-05 Completed [facility] 00:00:00 [facility] MMR 1992-11-05 Completed [facility] 00:00:00 [facility] Polio (IPV/OPV) 1992-11-05 Completed [facility] 00:00:[address] [facility] DTP 1992-11-05 Completed [facility] 00:00:00 [facility] HIB 4 Dose Schedule 1992-11-05 Completed [facility] 00:00:00 [facility] MMR 1992-11-05 Completed [facility] 00:00:00 [facility] Polio (IPV/OPV) 1992-11-05 Completed [facility] 00:00:00 [facility] DTP 1992-11-05 Completed [facility] 00:00:00 [facility] HIB 4 Dose Schedule 1992-11-05 Completed [facility] 00:00:00 [facility] MMR 1992-11-05 Completed [facility] 00:00:00 [facility] Polio (IPV/OPV) 1992-11-05 Completed [facility] 00:00:00 [facility] DTP 1992-11-05 Completed [facility] 00:00:00 [facility] HIB 4 Dose Schedule 1992-11-05 Completed [facility] 00:00:00 [facility] DTP 1992-11-05 Completed [facility] 00:00:00 [facility] MMR 1992-11-05 Completed [facility] 00:00:00 [facility] Polio (IPV/OPV) 1992-11-05 Completed [facility] 00:00:00 [facility] DTP 1992-11-05 Completed [facility] 00:00:00 [facility] HIB 4 Dose Schedule 1992-11-05 Completed [facility] 00:00:[address] [facility] MMR 1992-11-05 Completed [facility] 00:00:00 [facility] Polio (IPV/OPV) 1992-11-05 Completed [facility] 00:00:00 [facility] HIB 4 Dose Schedule 1992-11-05 Completed [facility] 00:00:00 [facility] MMR 1992-11-05 Completed [facility] 00:00:00 [facility] DTP 1992-11-05 Completed [facility] 00:00:00 [facility] HIB 4 Dose Schedule 1992-11-05 Completed [facility] 00:00:00 [facility] MMR 1992-11-05 Completed [facility] 00:00:00 [facility] Polio (IPV/OPV) 1992-11-05 Completed [facility] 00:00:00 [facility] DTP 1992-11-05 Completed [facility] 00:00:00 [facility] HIB 4 Dose Schedule 1992-11-05 Completed [facility] 00:00:[address] [facility] MMR 1992-11-05 Completed [facility] 00:00:00 [facility] Polio (IPV/OPV) 1992-11-05 Completed [facility] 00:00:00 [facility] Polio (IPV/OPV) 1992-11-05 Completed [facility] 00:00:00 [facility] DTP 1992-11-05 Completed [facility] 00:00:00 [facility] HIB 4 Dose Schedule 1992-11-05 Completed [facility] 00:00:00 [facility] MMR 1992-11-05 Completed [facility] 00:00:00 [facility] Polio (IPV/OPV) 1992-11-05 Completed [facility] 00:00:00 [facility] DTP 1992-11-05 Completed [facility] 00:00:00 [facility] HIB 4 Dose Schedule 1992-11-05 Completed [facility] 00:00:00 [facility] MMR 1992-11-05 Completed [facility] 00:00:00 [facility] Polio (IPV/OPV) 1992-11-05 Completed [facility] 00:00:00 [facility] DTP 1992-11-05 Completed [facility] 00:00:00 [facility] HIB 4 Dose Schedule 1992-11-05 Completed [facility] 00:00:00 [facility] MMR 1992-11-05 Completed [facility] 00:00:[address] [facility] Polio (IPV/OPV) 1992-11-05 Completed [facility] 00:00:00 [facility] DTP 1992-11-05 Completed [facility] 00:00:[address] [facility] HIB 4 Dose Schedule 1992-11-05 Completed [facility] 00:00:[address] [facility] Polio (IPV/OPV) 1992-01-17 Completed [facility] 00:00:00 [facility] DTP 1992-01-17 Completed [facility] 00:00:00 [facility] HIB 4 Dose Schedule 1992-01-17 Completed [facility] 00:00:00 [facility] Polio (IPV/OPV) 1992-01-17 Completed [facility] 00:00:00 [facility] DTP 1992-01-17 Completed [facility] 00:00:00 [facility] DTP 1992-01-17 Completed [facility] 00[facility]00:00 [facility] HIB 4 Dose Schedule 1992-01-17 Completed [facility] 00:00:00 [facility] Polio (IPV/OPV) 1992-01-17 Completed [facility] 00:00:00 [facility] HIB 4 Dose Schedule 1992-01-17 Completed [facility] 00:00:00 [facility] DTP 1992-01-17 Completed [facility] 00:00:00 [facility] HIB 4 Dose Schedule 1992-01-17 Completed [facility] 00:00:00 [facility] Polio (IPV/OPV) 1992-01-17 Completed [facility] 00:00:00 [facility] DTP 1992-01-17 Completed [facility] 00:00:00 [facility] HIB 4 Dose Schedule 1992-01-17 Completed [facility] 00:00:00 [facility] Polio (IPV/OPV) 1992-01-17 Completed [facility] 00:00:00 [facility] Polio (IPV/OPV) 1992-01-17 Completed [facility] 00:00:00 [facility] DTP 1992-01-17 Completed [facility] 00:00:00 [facility] HIB 4 Dose Schedule 1992-01-17 Completed [facility] 00:00:00 [facility] Polio (IPV/OPV) 1992-01-17 Completed [facility] 00:00:00 [facility] DTP 1992-01-17 Completed [facility] 00:00:00 [facility] HIB 4 Dose Schedule 1992-01-17 Completed [facility] 00:00:00 [facility] Polio (IPV/OPV) 1992-01-17 Completed [facility] 00:00:00 [facility] DTP 1992-01-17 Completed [facility] 00:00:00 [facility] HIB 4 Dose Schedule 1992-01-17 Completed [facility] 00:00:00 [facility] Polio (IPV/OPV) 1992-01-17 Completed [facility] 00:00:[address] [facility] DTP 1992-01-17 Completed [facility] 00:00:[address] [facility] HIB 4 Dose Schedule 1992-01-17 Completed [facility] 00:00:00 [facility] Polio (IPV/OPV) 1992-01-17 Completed [facility] 00:00:[address] [facility] DTP 1992-01-17 Completed [facility] 00:00:[address] [facility] HIB 4 Dose Schedule 1992-01-17 Completed [facility] 00:00:00 [facility] Polio (IPV/OPV) 1992-01-17 Completed [facility] 00:00:[address] [facility] DTP 1992-01-17 Completed [facility] 00:00:[address] [facility] HIB 4 Dose Schedule 1992-01-17 Completed [facility] 00:00:[address] [facility] Polio (IPV/OPV) 1992-01-17 Completed [facility] 00:00:[address] [facility] DTP 1992-01-17 Completed [facility] 00:00:[address] [facility] HIB 4 Dose Schedule 1992-01-17 Completed [facility] 00:00:[address] [facility] Polio (IPV/OPV) 1992-01-17 Completed [facility] 00:00:00 [facility] DTP 1992-01-17 Completed [facility] 00:00:[address] [facility] HIB 4 Dose Schedule 1992-01-17 Completed [facility] 00:00:00 [facility] Polio (IPV/OPV) 1992-01-17 Completed [facility] 00:00:[address] [facility] DTP 1992-01-17 Completed [facility] 00:00:[address] [facility] HIB 4 Dose Schedule 1992-01-17 Completed [facility] 00:00:[address] [facility] Polio (IPV/OPV) 1992-01-17 Completed [facility] 00:00:[address] [facility] DTP 1992-01-17 Completed [facility] 00:00:[address] [facility] HIB 4 Dose Schedule 1992-01-17 Completed [facility] 00:00:00 [facility] Polio (IPV/OPV) 1992-01-17 Completed [facility] 00:00:00 [facility] DTP 1992-01-17 Completed [facility] 00:00:00 [facility] HIB 4 Dose Schedule 1992-01-17 Completed [facility] 00:00:00 [facility] Polio (IPV/OPV) 1992-01-17 Completed [facility] 00:00:[address] [facility] DTP 1992-01-17 Completed [facility] 00:00:[address] [facility] HIB 4 Dose Schedule 1992-01-17 Completed [facility] 00:00:00 [facility] Polio (IPV/OPV) 1992-01-17 Completed [facility] 00:00:[address] [facility] DTP 1992-01-17 Completed [facility] 00:00:00 [facility] HIB 4 Dose Schedule 1992-01-17 Completed [facility] 00:00:[address] [facility] Polio (IPV/OPV) 1992-01-17 Completed [facility] 00:00:[address] [facility] DTP 1992-01-17 Completed [facility] 00:00:00 [facility] HIB 4 Dose Schedule 1992-01-17 Completed [facility] 00:00:[address] [facility] DTP 1992-01-17 Completed [facility] 00:00:[address] [facility] HIB 4 Dose Schedule 1992-01-17 Completed [facility] 00:00:[address] [facility] Polio (IPV/OPV) 1992-01-17 Completed [facility] 00:00:[address] [facility] Polio (IPV/OPV) 1992-01-17 Completed [facility] 00:00:[address] [facility] DTP 1992-01-17 Completed [facility] 00:00:[address] [facility] HIB 4 Dose Schedule 1992-01-17 Completed [facility] 00:00:[address] [facility] Polio (IPV/OPV) 1992-01-17 Completed [facility] 00:00:00 [facility] DTP 1992-01-17 Completed [facility] 00:00:00 [facility] HIB 4 Dose Schedule 1992-01-17 Completed [facility] 00:00:[address] [facility] Polio (IPV/OPV) 1992-01-17 Completed [facility] 00:00:[address] [facility] DTP 1992-01-17 Completed [facility] 00:00:00 [facility] HIB 4 Dose Schedule 1992-01-17 Completed [facility] 00:00:00 [facility] Polio (IPV/OPV) 1992-01-17 Completed [facility] 00:00:[address] [facility] DTP 1992-01-17 Completed [facility] 00:00:[address] [facility] HIB 4 Dose Schedule 1992-01-17 Completed [facility] 00:00:[address] [facility] Polio (IPV/OPV) 1992-01-17 Completed [facility] 00:00:[address] [facility] DTP 1992-01-17 Completed [facility] 00:00:00 [facility] DTP 1992-01-17 Completed [facility] 00:00:[address] [facility] HIB 4 Dose Schedule 1992-01-17 Completed [facility] 00:00:[address] [facility] Polio (IPV/OPV) 1992-01-17 Completed [facility] 00:00:[address] [facility] DTP 1992-01-17 Completed [facility] 00:00:00 [facility] HIB 4 Dose Schedule 1992-01-17 Completed [facility] 00:00:[address] [facility] Polio (IPV/OPV) 1992-01-17 Completed [facility] 00:00:[address] [facility] HIB 4 Dose Schedule 1992-01-17 Completed [facility] 00:00:[address] [facility] DTP 1992-01-17 Completed [facility] 00:00:[address] [facility] HIB 4 Dose Schedule 1992-01-17 Completed [facility] 00:00:[address] [facility] Polio (IPV/OPV) 1992-01-17 Completed [facility] 00:00:[address] [facility] DTP 1992-01-17 Completed [facility] 00:00:00 [facility] Polio (IPV/OPV) 1992-01-17 Completed [facility] 00[facility]00:[address] [facility] HIB 4 Dose Schedule 1992-01-17 Completed [facility] 00:00:00 [facility] Polio (IPV/OPV) 1992-01-17 Completed [facility] 00:00:[address] [facility] DTP 1992-01-17 Completed [facility] 00:00:[address] [facility] HIB 4 Dose Schedule 1992-01-17 Completed [facility] 00:00:[address] [facility] Polio (IPV/OPV) 1992-01-17 Completed [facility] 00:00:[address] [facility] DTP 1992-01-17 Completed [facility] 00:00:[address] [facility] HIB 4 Dose Schedule 1992-01-17 Completed [facility] 00:00:00 [facility] Polio (IPV/OPV) 1992-01-17 Completed [facility] 00:00:00 [facility] DTP 1992-01-17 Completed [facility] 00:00:[address] [facility] HIB 4 Dose Schedule 1992-01-17 Completed [facility] 00:00:[address] [facility] Polio (IPV/OPV) 1992-01-17 Completed [facility] 00:00:[address] [facility] DTP 1992-01-17 Completed [facility] 00:00:00 [facility] HIB 4 Dose Schedule 1992-01-17 Completed [facility] 00:00:00 [facility] Polio (IPV/OPV) 1991 Completed [facility] 00:00:00 [facility] DTP 1991 Completed [facility] 00:00:00 [facility] HIB 4 Dose Schedule 1991 Completed [facility] 00:00:00 [facility] DTP 1991 Completed [facility] 00:00:[address] [facility] Polio (IPV/OPV) 1991 Completed [facility] 00:00:00 [facility] DTP 1991 Completed [facility] 00:00:00 [facility] HIB 4 Dose Schedule 1991 Completed [facility] 00:00:[address] [facility] Polio (IPV/OPV) 1991 Completed [facility] 00:00:00 [facility] HIB 4 Dose Schedule 1991 Completed [facility] 00:00:00 [facility] DTP 1991 Completed [facility] 00:00:[address] [facility] HIB 4 Dose Schedule 1991 Completed [facility] 00:00:[address] [facility] Polio (IPV/OPV) 1991 Completed [facility] 00:00:00 [facility] DTP 1991 Completed [facility] 00:00:[address] [facility] HIB 4 Dose Schedule 1991 Completed [facility] 00:00:[address] [facility] Polio (IPV/OPV) 1991 Completed [facility] 00:00:[address] [facility] Polio (IPV/OPV) 1991 Completed [facility] 00:00:00 [facility] DTP 1991 Completed [facility] 00:00:00 [facility] HIB 4 Dose Schedule 1991 Completed [facility] 00:00:[address] [facility] Polio (IPV/OPV) 1991 Completed [facility] 00:00:00 [facility] DTP 1991 Completed [facility] 00:00:[address] [facility] HIB 4 Dose Schedule 1991 Completed [facility] 00:00:[address] [facility] Polio (IPV/OPV) 1991 Completed [facility] 00:00:00 [facility] DTP 1991 Completed [facility] 00:00:00 [facility] HIB 4 Dose Schedule 1991 Completed [facility] 00:00:00 [facility] Polio (IPV/OPV) 1991 Completed [facility] 00:00:00 [facility] DTP 1991 Completed [facility] 00:00:00 [facility] HIB 4 Dose Schedule 1991 Completed [facility] 00:00:[address] [facility] Polio (IPV/OPV) 1991 Completed [facility] 00:00:00 [facility] DTP 1991 Completed [facility] 00:00:00 [facility] HIB 4 Dose Schedule 1991 Completed [facility] 00:00:[address] [facility] Polio (IPV/OPV) 1991 Completed [facility] 00:00:00 [facility] DTP 1991 Completed [facility] 00:00:00 [facility] HIB 4 Dose Schedule 1991 Completed [facility] 00:00:[address] [facility] Polio (IPV/OPV) 1991 Completed [facility] 00:00:00 [facility] DTP 1991 Completed [facility] 00:00:[address] [facility] HIB 4 Dose Schedule 1991 Completed [facility] 00:00:[address] [facility] Polio (IPV/OPV) 1991 Completed [facility] 00:00:00 [facility] DTP 1991 Completed [facility] 00:00:00 [facility] HIB 4 Dose Schedule 1991 Completed [facility] 00:00:[address] [facility] Polio (IPV/OPV) 1991 Completed [facility] 00:00:00 [facility] DTP 1991 Completed [facility] 00:00:00 [facility] HIB 4 Dose Schedule 1991 Completed [facility] 00:00:00 [facility] Polio (IPV/OPV) 1991 Completed [facility] 00:00:[address] [facility] DTP 1991 Completed [facility] 00:00:00 [facility] HIB 4 Dose Schedule 1991 Completed [facility] 00:00:00 [facility] Polio (IPV/OPV) 1991 Completed [facility] 00:00:00 [facility] DTP 1991 Completed [facility] 00:00:00 [facility] HIB 4 Dose Schedule 1991 Completed [facility] 00:00:[address] [facility] Polio (IPV/OPV) 1991 Completed [facility] 00:00:00 [facility] DTP 1991 Completed [facility] 00:00:00 [facility] HIB 4 Dose Schedule 1991 Completed [facility] 00:00:[address] [facility] Polio (IPV/OPV) 1991 Completed [facility] 00:00:00 [facility] DTP 1991 Completed [facility] 00:00:00 [facility] HIB 4 Dose Schedule 1991 Completed [facility] 00:00:[address] [facility] Polio (IPV/OPV) 1991 Completed [facility] 00:00:[address] [facility] DTP 1991 Completed [facility] 00:00:00 [facility] HIB 4 Dose Schedule 1991 Completed [facility] 00:00:00 [facility] DTP 1991 Completed [facility] 00:00:00 [facility] HIB 4 Dose Schedule 1991 Completed [facility] 00:00:[address] [facility] Polio (IPV/OPV) 1991 Completed [facility] 00:00:[address] [facility] Polio (IPV/OPV) 1991 Completed [facility] 00:00:00 [facility] DTP 1991 Completed [facility] 00:00:00 [facility] HIB 4 Dose Schedule 1991 Completed [facility] 00:00:[address] [facility] Polio (IPV/OPV) 1991 Completed [facility] 00:00:00 [facility] DTP 1991 Completed [facility] 00:00:00 [facility] HIB 4 Dose Schedule 1991 Completed [facility] 00:00:[address] [facility] Polio (IPV/OPV) 1991 Completed [facility] 00:00:00 [facility] DTP 1991 Completed [facility] 00:00:00 [facility] HIB 4 Dose Schedule 1991 Completed [facility] 00:00:00 [facility] Polio (IPV/OPV) 1991 Completed [facility] 00:00:00 [facility] DTP 1991 Completed [facility] 00:00:00 [facility] HIB 4 Dose Schedule 1991 Completed [facility] 00:00:00 [facility] Polio (IPV/OPV) 1991 Completed [facility] 00:00:00 [facility] DTP 1991 Completed [facility] 00:00:00 [facility] DTP 1991 Completed [facility] 00:00:00 [facility] HIB 4 Dose Schedule 1991 Completed [facility] 00:00:[address] [facility] Polio (IPV/OPV) 1991 Completed [facility] 00:00:00 [facility] DTP 1991 Completed [facility] 00:00:00 [facility] HIB 4 Dose Schedule 1991 Completed [facility] 00:00:00 [facility] HIB 4 Dose Schedule 1991 Completed [facility] 00:00:[address] [facility] Polio (IPV/OPV) 1991 Completed [facility] 00:00:[address] [facility] DTP 1991 Completed [facility] 00:00:00 [facility] HIB 4 Dose Schedule 1991 Completed [facility] 00:00:00 [facility] Polio (IPV/OPV) 1991 Completed [facility] 00:00:00 [facility] Polio (IPV/OPV) 1991 Completed [facility] 00:00:[address] [facility] DTP 1991 Completed [facility] 00:00:00 [facility] HIB 4 Dose Schedule 1991 Completed [facility] 00:00:00 [facility] Polio (IPV/OPV) 1991 Completed [facility] 00:00:[address] [facility] DTP 1991 Completed [facility] 00:00:00 [facility] HIB 4 Dose Schedule 1991 Completed [facility] 00:00:00 [facility] Polio (IPV/OPV) 1991 Completed [facility] 00:00:00 [facility] DTP 1991 Completed [facility] 00:00:00 [facility] HIB 4 Dose Schedule 1991 Completed [facility] 00:00:[address] [facility] Polio (IPV/OPV) 1991 Completed [facility] 00:00:00 [facility] DTP 1991 Completed [facility] 00:00:00 [facility] HIB 4 Dose Schedule 1991 Completed [facility] 00:00:[address] [facility] Polio (IPV/OPV) 1991 Completed [facility] 00:00:00 [facility] DTP 1991 Completed [facility] 00:00:00 [facility] HIB 4 Dose Schedule 1991 Completed [facility] 00:00:[address] [facility] Polio (IPV/OPV) 1991 Completed [facility] 00:00:00 [facility] DTP 1991 Completed [facility] 00:00:[address] [facility] DTP 1991 Completed [facility] 00:00:[address] [facility] HIB 4 Dose Schedule 1991 Completed [facility] 00:00:[address] [facility] Polio (IPV/OPV) 1991 Completed [facility] 00:00:00 [facility] DTP 1991 Completed [facility] 00:00:00 [facility] HIB 4 Dose Schedule 1991 Completed [facility] 00:00:00 [facility] Polio (IPV/OPV) 1991 Completed [facility] 00:00:[address] [facility] HIB 4 Dose Schedule 1991 Completed [facility] 00:00:[address] [facility] DTP 1991 Completed [facility] 00:00:00 [facility] HIB 4 Dose Schedule 1991 Completed [facility] 00:00:[address] [facility] Polio (IPV/OPV) 1991 Completed [facility] 00:00:[address] [facility] DTP 1991 Completed [facility] 00:00:[address] [facility] Polio (IPV/OPV) 1991 Completed [facility] 00:00:00 [facility] HIB 4 Dose Schedule 1991 Completed [facility] 00:00:[address] [facility] Polio (IPV/OPV) 1991 Completed [facility] 00:00:00 [facility] DTP 1991 Completed [facility] 00:00:00 [facility] HIB 4 Dose Schedule 1991 Completed [facility] 00:00:[address] [facility] Polio (IPV/OPV) 1991 Completed [facility] 00:00:00 [facility] DTP 1991 Completed [facility] 00:00:00 [facility] HIB 4 Dose Schedule 1991 Completed [facility] 00:00:[address] [facility] Polio (IPV/OPV) 1991 Completed [facility] 00:00:00 [facility] DTP 1991 Completed [facility] 00:00:00 [facility] HIB 4 Dose Schedule 1991 Completed [facility] 00:00:[address] [facility] Polio (IPV/OPV) 1991 Completed [facility] 00:00:00 [facility] DTP 1991 Completed [facility] 00:00:[address] [facility] HIB 4 Dose Schedule 1991 Completed [facility] 00:00:[address] [facility] Polio (IPV/OPV) 1991 Completed [facility] 00:00:[address] [facility] DTP 1991 Completed [facility] 00:00:00 [facility] HIB 4 Dose Schedule 1991 Completed [facility] 00:00:[address] [facility] Polio (IPV/OPV) 1991 Completed [facility] 00:00:[address] [facility] DTP 1991 Completed [facility] 00:00:00 [facility] HIB 4 Dose Schedule 1991 Completed [facility] 00:00:00 [facility] Polio (IPV/OPV) 1991 Completed [facility] 00:00:00 [facility] DTP 1991 Completed [facility] 00:00:00 [facility] HIB 4 Dose Schedule 1991 Completed [facility] 00:00:00 [facility] Polio (IPV/OPV) 1991 Completed [facility] 00:00:00 [facility] DTP 1991 Completed [facility] 00:00:00 [facility] HIB 4 Dose Schedule 1991 Completed [facility] 00:00:00 [facility] Polio (IPV/OPV) 1991 Completed [facility] 00:00:00 [facility] DTP 1991 Completed [facility] 00:00:00 [facility] HIB 4 Dose Schedule 1991 Completed [facility] 00:00:00 [facility] Polio (IPV/OPV) 1991 Completed [facility] 00:00:00 [facility] DTP 1991 Completed [facility] 00:00:00 [facility] HIB 4 Dose Schedule 1991 Completed [facility] 00:[facility] [facility] Polio (IPV/OPV) 1991 Completed [facility] 00:00:00 [facility] DTP 1991 Completed [facility] 00:00:00 [facility] HIB 4 Dose Schedule 1991 Completed Unive rsity of 00:00:00 [facility] Polio (IPV/OPV) 1991 Completed [facility] 00:00:00 [facility] DTP 1991 Completed [facility] 00:00:00 [facility] HIB 4 Dose Schedule 1991 Completed [facility] rsity [facility] 00:00:00 [facility] Polio (IPV/OPV) 1991 Completed [facility] 00:00:00 [facility] DTP 1991 Completed [facility] 00:00:00 [facility] HIB 4 Dose Schedule 1991 Completed [facility]ive rsity of 00:00:[address] [facility] DTP 1991 Completed [facility] 00:00:00 [facility] Polio (IPV/OPV) 1991 Completed [facility] 00:00:[address] [facility] HIB 4 Dose Schedule 1991 Completed Unive rsity of 00:00:[address] [facility] DTP 1991 Completed [facility] 00:00:00 [facility] HIB 4 Dose Schedule 1991 Completed Unive rsity of 00:00:[address] [facility] Polio (IPV/OPV) 1991 Completed [facility] 00:00:[address] [facility] Polio (IPV/OPV) 1991 Completed [facility] 00:00:00 [facility] DTP 1991 Completed [facility] 00:00:00 [facility] HIB 4 Dose Schedule 1991 Completed Unive rsity of 00:00:[address] [facility] Polio (IPV/OPV) 1991 Completed [facility] 00:00:00 [facility] DTP 1991 Completed [facility] 00:00:00 [facility] HIB 4 Dose Schedule 1991 Completed Unive rsity of 00:00:[address] [facility] Polio (IPV/OPV) 1991 Completed [facility] 00:00:[address] [facility] DTP 1991 Completed [facility] 00:00:00 [facility] HIB 4 Dose Schedule 1991 Completed Unive rsity of 00:00:[address] [facility] Polio (IPV/OPV) 1991 Completed [facility] 00:00:00 [facility] DTP 1991 Completed [facility] 00:00:00 [facility] HIB 4 Dose Schedule 1991 Completed Unive rsity of 00:00:[address] [facility] Polio (IPV/OPV) 1991 Completed [facility] 00:00:00 [facility] DTP 1991 Completed [facility] 00:00:00 [facility] DTP 1991 Completed [facility] 00:00:00 [facility] HIB 4 Dose Schedule 1991 Completed [facility] rsity of 00:00:00 [facility] Polio (IPV/OPV) 1991 Completed [facility] 00:00:00 [facility] HIB 4 Dose Schedule 1991 Completed [facility] rsity of 00:00:00 [facility] DTP 1991 Completed [facility] 00:00:00 [facility] HIB 4 Dose Schedule 1991 Completed [facility]ive rsity of 00:00:00 [facility] Polio (IPV/OPV) 1991 Completed [facility] 00:00:00 [facility] DTP 1991 Completed [facility] 00:00:00 [facility] HIB 4 Dose Schedule 1991 Completed [facility] of 00:00:00 [facility] Polio (IPV/OPV) 1991 Completed [facility] 00:00:00 [facility] Polio (IPV/OPV) 1991 Completed [facility] 00:00:00 [facility] DTP 1991 Completed [facility] 00:00:00 [facility] HIB 4 Dose Schedule 1991 Completed [facility] rs[facility] of 00:00:00 [facility] Polio (IPV/OPV) 1991 Completed [facility] 00:00:00 [facility] DTP 1991 Completed [facility] 00:00:00 [facility] HIB 4 Dose Schedule 1991 Completed Unive rsity of 00:00:[address] [facility] Polio (IPV/OPV) 1991 Completed [facility] 00:00:00 [facility] DTP 1991 Completed [facility] 00:00:00 [facility] HIB 4 Dose Schedule 1991 Completed Unive rsity of 00:00:[address] [facility] Polio (IPV/OPV) 1991 Completed [facility] 00:00:00 [facility] DTP 1991 Completed [facility] 00:00:00 [facility] HIB 4 Dose Schedule 1991 Completed [facility] rsity of 00:00:00 [facility] Polio (IPV/OPV) 1991 Completed [facility] 00:00:00 [facility] DTP 1991 Completed [facility] 00:00:00 [facility] HIB 4 Dose Schedule 1991 Completed [facility] rsity of 00:00:00 [facility] Vital Signs Vital Name Observation Time Observation Value Comments Source Body height 2023-03-18 15:41:00 147.3 cm [facility] Body weight 2023-03-18 15:41:00 44.453 kg [facility] BMI 2023-03-18 15:41:00 20.48 kg/m2 [facility] Systolic blood 2023-03-17 21:15:00 124 mm[Hg] Univer sity of pressure [facility] Diastolic blood 2023-03-17 21:15:00 90 mm[Hg] Unive rsity of pressure [facility] Heart rate 2023-03-17 21:15:00 109 /min [facility] Body temperature 2023-03-17 21:15:00 36.83 Tiffayn Univ ersity of [facility] Respiratory rate 2023-03-17 21:15:00 20 /min Univ ersity of [facility] Body height 2023-03-17 21:15:00 147.3 cm [facility] Body weight 2023-03-17 21:15:00 44.725 kg [facility] BMI 2023-03-17 21:15:00 20.61 kg/m2 [facility] of [facility] Oxygen saturation in 2023-03-17 21:15:00 100 /min [facility] Arterial blood by [facility] Pulse oximetry Branch Systolic blood 2023-03-08 21:08:00 96 mm[Hg] Univer sity of pressure [facility] Diastolic blood 2023-03-08 21:08:00 65 mm[Hg] Unive rsity of pressure [facility] Heart rate 2023-03-08 21:08:00 105 /min [facility] Respiratory rate 2023-03-08 21:08:00 18 /min [facility] ers[facility] Body height 2023-03-08 21:08:00 147.3 cm [facility] Body weight 2023-03-08 21:08:00 44.906 kg [facility] BMI 2023-03-08 21:08:00 20.69 kg/m2 [facility] Body height 2023-02-22 19:38:00 147.3 cm [facility] Body weight 2023-02-22 19:38:00 53.524 kg [facility] BMI 2023-02-22 19:38:00 24.66 kg/m2 Universi ty of [facility] Systolic blood 2023-02-22 15:55:00 101 mm[Hg] Univer sity of pressure [facility] Diastolic blood 2023-02-22 15:55:00 69 mm[Hg] Unive rsity of pressure [facility] Heart rate 2023-02-22 15:55:00 117 /min [facility] Body height 2023-02-22 15:55:00 147.3 cm [facility] Body weight 2023-02-22 15:55:00 53.524 kg [facility] BMI 2023-02-22 15:55:00 24.66 kg/m2 [facility] Oxygen saturation in 2023-02-22 15:55:00 99 /min University of Arterial blood by [facility] Pulse oximetry Branch Systolic blood 2022-12-20 23:06:00 147 mm[Hg] Univer sity of pressure [facility] Diastolic blood 2022-12-20 23:06:00 85 mm[Hg] Unive rsity of [facility] Respiratory rate 2022-12-20 23:06:00 12 /min Univ ersity of [facility] Oxygen saturation in 2022-12-20 23:06:00 96 /min University of Arterial blood by [facility] Pulse oximetry Branch Body temperature 2022-12-20 21:57:[address] [facility] [address] [facility] Heart rate 2022-12-20 18:39:00 110 /min [facility] Body height 2022-12-17 18:00:00 147.3 cm [facility] Body weight 2022-12-17 18:00:00 52.844 kg [facility] BMI 2022-12-17 18:00:00 24.35 kg/m2 [facility] Respiratory rate 2022-12-20 23:06:00 12 /min [facility] ers[facility] Oxygen saturation in 2022-12-20 23:06:00 96 /min University of Arterial blood by [place] [employer] Pulse oximetry Branch Systolic blood 2022-12-20 23:06:00 147 mm[Hg] Univer sity of pressure [facility] Diastolic blood 2022-12-20 23:06:00 85 mm[Hg] Unive rsity of [facility] Body temperature 2022-12-20 21:57:00 36.72 Tiffany [facility] Heart rate 2022-12-20 18:39:00 110 /min [facility] Body height 2022-12-17 18:00:00 147.3 cm [facility] Body weight 2022-12-17 18:00:00 52.844 kg [facility] BMI 2022-12-17 18:00:00 24.35 kg/m2 [facility] Heart rate 2022-12-16 17:00:00 103 /min [facility] Respiratory rate 2022-12-16 17:00:00 13 /min [facility] Oxygen saturation in 2022-12-16 17:00:00 97 /min University of Arterial blood by [place] [employer] Pulse oximetry [facility] Systolic blood 2022-12-16 16:05:00 129 mm[Hg] Univer sity of pressure [facility] Diastolic blood 2022-12-16 16:05:00 86 mm[Hg] Unive rsity of [facility] [place] Body temperature 2022-12-16 16:05:00 37 Tiffany [facility] Body weight 2022-12-16 09:00:00 56.473 kg [facility] BMI 2022-12-16 09:00:00 26.02 kg/m2 [facility] Body height 2022-12-15 09:41:00 147.3 cm [facility] Systolic blood 2022-12-14 19:09:00 116 mm[Hg] Univer sity of pressure [facility] Diastolic blood 2022-12-14 19:09:00 74 mm[Hg] Unive rsity of pressure [facility] Heart rate 2022-12-14 19:09:00 112 /min [facility] Body temperature 2022-12-14 19:09:00 36.5 Tiffany [facility] Respiratory rate 2022-12-14 19:09:00 18 /min [facility] Body weight 2022-12-14 19:09:00 53.524 kg [facility] BMI 2022-12-14 19:09:00 22.30 kg/m2 [facility] Systolic blood 2022-12-07 14:27:00 119 mm[Hg] Univer sity of pressure [facility] Diastolic blood 2022-12-07 14:27:00 83 mm[Hg] Unive rsity of pressure [facility] Heart rate 2022-12-07 14:27:00 101 /min [facility] Body temperature 2022-12-07 14:27:00 36.67 Tiffany [facility] Body height 2022-12-07 14:27:00 154.9 cm [facility] Body weight 2022-12-07 14:27:00 53.797 kg [facility] BMI 2022-12-07 14:27:00 22.41 kg/m2 [facility] WEIGHT 2022-07-07 04:06:00 52.3 kg [...] kg Systolic blood 2022-07-07 11:01:00 99 mm[Hg] [facility] Diastolic blood 2022-07-07 11:01:00 63 mm[Hg] [facility] Heart rate 2022-07-07 11:01:00 95 /min [facility] Body temperature 2022-07-07 11:01:00 35.78 Tiffany [facility] Respiratory rate 2022-07-07 11:01:00 18 /min [facility] Oxygen saturation in 2022-07-07 11:01:00 98 /min [facility] Arterial blood by Medical Ce [facility]ter Pulse oximetry Body weight 2022-07-07 04:06:00 52.3 kg [facility] BMI 2022-07-07 04:06:00 23.29 kg/m2 [facility] Body height 2022-07-05 05:00:00 149.9 cm [facility] Procedures Procedure Date / Time Performing Clinician Source Performed XR TIBIA FIBULA 2 VW 2023-03-17 22:13:11 Minna Walter [facility] CONSENT/REFUSAL FOR 2023-03-17 21:08:54 Doctor Unassigned, No [facility] DIAGNOSIS AND TREATMENT Name [facility] INSURANCE CORRESPONDENCE 2022-12-23 05:01:00 Doctor Unassigned, No [facility] Name [facility] REFERRAL- 2022-12-21 05:01:00 Doctor Unassigned, No [facility] REQUEST/RESPONSE Name [facility] POCT GLUCOSE (AUTOMATED) 2022-12-20 22:03:00 Ludy Boyd [facility] POCT GLUCOSE (AUTOMATED) 2022-12-20 22:03:00 Ludy Boyd [facility] FL TIME OR 2022-12-20 21:30:00 Ludy Boyd [facility] (NON-REPORTABLE) [facility] FL TIME OR 2022-12-20 21:30:00 Ludy Boyd [facility] (NON-REPORTABLE) [facility] TIBIA INTRAMEDULLARY 2022-12-20 19:16:[address] [facility] NAILING [facility] TIBIA ORIF 2022-12-20 19:16:00 Ludy Boyd [facility] POCT GLUCOSE (AUTOMATED) 2022-12-20 18:57:00 Ludy Boyd [facility] POCT GLUCOSE (AUTOMATED) 2022-12-20 18:57:00 Ludy Boyd [facility] HB ABO GROUPING 2022-12-20 18:49:00 Ludy Boyd [facility] HB ABO GROUPING 2022-12-20 18:49:00 Ludy Boyd [facility] POCT TEST 2022-12-20 18:45:00 Lakes[facility]ia [facility] POCT TEST 2022-12-20 18:45:00 [facility] 2022-12-20 05:01:00 Doctor Unassigned, No [facility] POCT GLUCOSE (AUTOMATED) 2022-12-16 16:33:00 Rodolfo Sparrow [facility] POCT GLUCOSE (AUTOMATED) 2022-12-16 14:54:00 Rodolfo Sparrow [facility] BASIC METABOLIC PANEL 2022-12-16 10:28:00 Candido Guillen [facility] (NA, K, CL, CO2, GLUCOSE, Medica l Branch BUN, CREATININE, CA) LIPID PANEL ([id number])(TOTAL 2022-12-16 10:28:00 Candido Guillen [facility] CHOLESTEROL, [facility] TRIGLYCERIDES, HDL) CBC WITH DIFF 2022-12-16 10:28:00 Candido Guillen o f [facility] POCT GLUCOSE (AUTOMATED) 2022-12-16 09:20:00 Rodolfo Sparrow [facility] (AUTOMATED) 2022-12-16 05:20:00 Rodolfo Sparrow [facility] POCT GLUCOSE (AUTOMATED) 2022-12-16 01:12:00 Rodolfo Sparrow [facility] POCT GLUCOSE (AUTOMATED) 2022-12-15 21:35:00 Rodolfo Sparrow [facility] POCT GLUCOSE (AUTOMATED) 2022-12-15 16:19:00 Rodolfo Sparrow [facility] BASIC METABOLIC PANEL 2022-12-15 14:03:00 Juan Miguel [facility] (NA, K, CL, CO2, GLUCOSE, Medica l Branch BUN, CREATININE, CA) POCT GLUCOSE (AUTOMATED) 2022-12-15 12:24:00 Rodolfo Sparrow [facility] BASIC METABOLIC PANEL 2022-12-15 09:06:00 Juan Miguel [facility] (NA, K, CL, CO2, GLUCOSE, Medica [facility] Branch BUN, CREATININE, CA) POCT GLUCOSE (AUTOMATED) 2022-12-15 09:05:00 Rodolfo Sparrow [facility] POCT GLUCOSE (AUTOMATED) 2022-12-15 05:19:00 Rodolfo Sparrow [facility] BASIC METABOLIC PANEL 2022-12-15 04:07:00 Rodolfo Sparrow [facility] (NA, K, CL, CO2, GLUCOSE, Medica l Branch BUN, CREATININE, CA) POCT GLUCOSE (AUTOMATED) 2022-12-15 04:05:00 Rodolfo Sparrow [facility] URINALYSIS 2022-12-15 03:19:00 Rodolfo Sparrow [place] [facility] POCT GLUCOSE (AUTOMATED) 2022-12-15 03:06:00 Rodolfo Sparrow [facility] POCT GLUCOSE (AUTOMATED) 2022-12-15 02:07:00 Rodolfo Sparrow [facility] BETA HYDROXY-BUTYRATE 2022-12-15 01:36:00 Rodolfo Sparrow [facility] BASIC METABOLIC PANEL 2022-12-15 01:36:00 Rodolfo Sparrow [facility] (NA, K, CL, CO2, GLUCOSE, Medica l Branch BUN, CREATININE, CA) POCT GLUCOSE (AUTOMATED) 2022-12-15 01:03:00 Rodolfo Sparrow [facility] XR ANKLE 3+ VW RIGHT 2022-12-15 00:33:50 Rodolfo Sparrow [facility] XR FEMUR 2 VW RIGHT 2022-12-15 00:33:50 Rodolfo Sparrow [facility] XR TIBIA FIBULA 2 VW 2022-12-15 00:33:50 Rodolfo Sparrow [facility] POCT GLUCOSE (AUTOMATED) 2022-12-15 00:05:00 Rodolfo Sparrow [facility] MRSA / MSSA SCREEN BY 2022-12-14 23:11:00 Rodolfo Sparrow [facility] PCR, NARES [facility] POCT GLUCOSE (AUTOMATED) 2022-12-14 23:06:00 Rodolfo Sparrow [facility] POCT GLUCOSE(AGE >30DAYS) 2022-12-14 22:19:00 Ling Camarillo [facility] POCT GLUCOSE (AUTOMATED) 2022-12-14 22:18:00 Rodolfo Sparrow [facility] POCT GLUCOSE(AGE >30DAYS) 2022-12-14 21:06:00 Ling Camarillo [facility] POCT GLUCOSE (AUTOMATED) 2022-12-14 21:02:00 Ling Camarillo [facility] AC PANEL 21 + LACTIC ACID 2022-12-14 19:57:00 Ling Camarillo [facility] PHOSPHORUS 2022-12-14 19:56:00 Ling Camarillo [facility] MAGNESIUM 2022-12-14 19:56:00 Ling Camarillo [facility] COMP. METABOLIC PANEL 2022-12-14 19:56:00 Ling Camarillo [facility] ([id number]) [facility] CBC WITH DIFF 2022-12-14 19:56:00 Ling Camarillo [facility] GLYCOSYLATED HEMOGLOBIN 2022-12-14 19:56:00 Ling Camarillo [facility] (A1C) [facility] POCT GLUCOSE (AUTOMATED) 2022-12-14 19:41:00 Ling Camarillo [facility] CONSENT/REFUSAL FOR 2022-12-14 19:15:29 Doctor Unassigned, No [facility] [place] DI[facility] TREAT[facility] Name [facility] [place] REFERRAL- 2022-12-14 05:01:00 Doctor Unassigned, No [facility] [place] REQUEST/RESPONSE Name [facility] REFERRAL- 2022-12-10 05:01:00 Doctor Unassigned, No [facility] [place] REQUEST/RESPONSE Name [facility] POCT TEST 2022-12-07 14:57:00 [facility] ASSIGNMENT OF BENEFITS 2022-12-07 14:07:37 Doctor Unassigned, No [facility] REFERRAL- 2022-11-10 05:01:00 Doctor Unassigned, No [facility] [place] REQUEST/RESPONSE Name [facility] REFERRAL- 2022-10-29 05:01:00 Doctor Unassigned, No [facility] [place] REQUEST/RESPONSE Name [facility] POCT-GLUCOSE METER 2022-07-07 11:04:00 Poppy Manzo [facility] POCT-GLUCOSE METER 2022-07-07 07:53:00 Poppy Manzo [facility] CBC W/PLT COUNT & AUTO 2022-07-07 04:55:00 Carlos Gooden [facility] DIFFERENTIAL [facility] BASIC METABOLIC PANEL 2022-07-07 04:55:00 [facility] MAGNESIUM 2022-07-07 04:55:00 Antione Todd [facility] PHOSPHORUS 2022-07-07 04:55:00 Antione Todd [facility] CBC W/PLT COUNT & AUTO 2022-07-07 04:55:00 Carlos Gooden [facility] DIFFERENTIAL [facility] POCT-GLUCOSE METER 2022-07-06 21:36:00 Noman Almodovar [facility] POCT-GLUCOSE METER 2022-07-06 17:39:00 [facility]SE METER 2022-07-06 16:38:00 Scooby [facility] POCT-GLUCOSE METER 2022-07-06 16:18:00 Scooby [facility] POCT-GLUCOSE METER 2022-07-06 10:56:00 Scooby Noman [facility] BASIC METABOLIC PANEL 2022-07-06 08:10:00 Maryanne Meade [facility] BLOOD GAS, VENOUS 2022-07-06 08:10:00 Maryanne Meade [facility] MAGNESIUM 2022-07-06 08:10:00 Maryanne Meade [facility] PHOSPHORUS 2022-07-06 08:10:00 [facility] POCT-GLUCOSE METER 2022-07-06 07:40:00 Mayo C[facility] BASIC METABOLIC PANEL 2022-07-06 05:07:00 Maryanne Meade [facility] BLOOD GAS, VENOUS 2022-07-06 05:07:00 Maryanne Meade [facility] MAGNESIUM 2022-07-06 05:07:00 Maryanne Meade [facility] PHOSPHORUS 2022-07-06 05:07:00 Maryanne Meade [facility] CBC W/PLT COUNT & AUTO 2022-07-06 05:07:00 Carlos Gooden [facility] DIFFERENTIAL [facility] CBC W/PLT COUNT & AUTO 2022-07-06 05:07:00 [facility] DIFFERENTIAL [facility] BASIC METABOLIC PANEL 2022-07-06 01:13:00 Maryanne Meade [facility] BLOOD GAS, VENOUS 2022-07-06 01:13:00 Maryanne Meade [facility] MAGNESIUM 2022-07-06 01:13:00 Maryanne Meade [facility] PHOSPHORUS 2022-07-06 01:13:00 Maryanne Meade [facility] POCT-GLUCOSE METER 2022-07-06 00:02:00 Mayo Cisse [facility] POCT-GLUCOSE METER 2022-07-05 23:04:00 Eliseo [facility] POCT-GLUCOSE METER 2022-07-05 22:12:00 Mayo Cisse [facility] BLOOD GAS, VENOUS 2022-07-05 21:27:00 [facility] MAGNESIUM 2022-07-05 21:17:00 Maryanne Meade [facility] PHOSPHORUS 2022-07-05 21:17:00 [facility] BASIC METABOLIC PANEL 2022-07-05 21:17:00 Maryanne Meade [facility] POCT-GLUCOSE METER 2022-07-05 21:15:00 Mayo Cisse [facility] POCT-GLUCOSE METER 2022-07-05 16:39:00 Eliseo [facility] POCT-GLUCOSE METER 2022-07-05 15:38:00 Eliseo Cisse[facility] POCT-GLUCOSE METER 2022-07-05 14:24:00 Eliseo [facility]isseformerly [facility] POCT-GLUCOSE METER 2022-07-05 13:20:00 Eliseo [facility]formerly [facility] POCT-GLUCOSE METER 2022-07-05 12:44:00 Betito [facility] BASIC METABOLIC PANEL 2022-07-05 12:34:00 Maryanne Meade [facility] BLOOD GAS, VENOUS 2022-07-05 12:34:00 Maryanne Meade [facility] MAGNESIUM 2022-07-05 12:34:00 Maryanne Meade [facility] PHOSPHORUS 2022-07-05 12:34:00 [facility] POCT-GLUCOSE METER 2022-07-05 11:37:00 Mayo Cisse [facility] POCT-GLUCOSE METER 2022-07-05 10:36:00 Betito [facility] POCT-GLUCOSE METER 2022-07-05 09:24:00 Betito [facility] POCT-GLUCOSE METER 2022-07-05 08:33:00 [facility] BASIC METABOLIC PANEL 2022-07-05 08:23:00 Maryanne Meade [facility] BLOOD GAS, VENOUS 2022-07-05 08:23:00 Maryanne Meade [facility] MAGNESIUM 2022-07-05 08:23:00 Maryanne Meade [facility] PHOSPHORUS 2022-07-05 08:23:00 Maryanne Meade [facility] POCT-GLUCOSE METER 2022-07-05 07:32:00 [facility]INE 2022-07-05 07:22:00 Maryanne Meade [facility] POCT-GLUCOSE METER 2022-07-05 06:31:00 [facility]man [facility] POCT-GLUCOSE METER 2022-07-05 05:30:00 Usman [facility] BLOOD CULTURE 2022-07-05 04:44:00 Maryanne Meade [facility] SARS-COV2/INFLUENZA/RSV 2022-07-05 04:33:00 Maryanne Meade [facility] RT-PCR Center HIGH SENSITIVITY TROPONIN 2022-07-05 04:32:00 Maryanne Meade ba [facility] [place] CBC W/PLT COUNT & AUTO 2022-07-05 04:32:00 Maryanne Meade [facility] DIFFERENTIAL Center TSH/FREE T4 IF INDICATED 2022-07-05 04:32:00 [facility] LACTIC ACID, VENOUS 2022-07-05 04:32:00 [facility] CBC W/PLT COUNT & AUTO 2022-07-05 04:32:00 [facility] BASIC METABOLIC PANEL 2022-07-05 04:32:00 [facility] BLOOD GAS, VENOUS 2022-07-05 04:32:00 [facility] MAGNESIUM 2022-07-05 04:32:00 [facility] PHOSPHORUS 2022-07-05 04:32:00 [facility] HEMO[facility] A1C 2022-07-05 04:32:00 [facility] POCT-GLUCOSE METER 2022-07-05 04:23:00 [facility] POCT-GLUCOSE METER 2022-07-05 02:40:00 [facility] POCT-GLUCOSE METER 2022-07-05 01:32:00 [facility] EKG-SCANNED 2022-07-05 00:00:00 [facility] Planned Activity Planned Date Details Comments Source Future Scheduled 2023-04-15 Influenza Vaccine (#1) [facility] [code = Influenza Vaccine [facility] (#1)] Future Scheduled 2023-04-15 INFLUENZA VACCINE (Season [facility] 00:00:00 Ended) [code = INFLUENZA Med ical Center VACCINE (Season Ended)] Future Scheduled 2023-04-15 INFLUENZA VACCINE (Season [facility] 00:00:00 Ended) [code = INFLUENZA Med ical Center VACCINE (Season Ended)] Future Scheduled 2022-08-[address] [facility] 00:00:00 (12+) [code = DEPRESSION Med ical Center SCREENING (12+)] Future Scheduled 2022-08-[address] [facility] 00:00:00 (12+) [code = DEPRESSION Med ical Center SCREENING (12+)] Future Scheduled 2022-08-[address] [facility] 00:00:00 (12+) [code = DEPRESSION Med ical Center SCREENING (12+)] Future Scheduled 2022-08-[address] [facility] 00:00:00 (12+) [code = DEPRESSION Med ical Center SCREENING (12+)] Future Scheduled 2022-07-[address] (procedure[facility] [code = 73320825] Future Scheduled 2022-07-[address] [facility] 00[facility]00 [facility] (procedure[facility] [code = 85913954] Future Scheduled 2022-07-[address] [facility] 00[facility]00[facility]00 [facility] (procedure[facility] [code = 56808178] Future Scheduled 2022-07-[address] [facility] 00:00:00 measurement (procedure) [facility] [code = 23521669] Future Scheduled 2022-04-15 INFLUENZA VACCINE (#1) [facility] 00:00[facility]00 [code = INFLUENZA VACCINE Az dical Center (#1)] Future Scheduled 2017-01-05 DTAP/TDAP/TD VACCINES ([address] [facility] 00:00:00 - Td or Tdap) [code = Medica l Center DTAP/TDAP/TD VACCINES (7 - Td or Tdap)] Future Scheduled 2017-01-05 DTAP/TDAP/TD VACCINES ([address] [facility] 00:00:00 - Td or Tdap) [code = Medica l Center DTAP/TDAP/TD VACCINES (7 - Td or Tdap)] Future Scheduled 2017-01-05 DTAP/TDAP/TD VACCINES ([address] [facility] 00:00:00 - Td or Tdap) [code = Medica l Center DTAP/TDAP/TD VACCINES (7 - Td or Tdap)] Future Scheduled 2017-01-05 DTAP/TDAP/TD VACCINES ([address] [facility] 00:00:00 - Td or Tdap) [code = Medica l Center DTAP/TDAP/TD VACCINES (7 - Td or Tdap)] Future Scheduled 2012 Screening for malignant [facility] 00:00:00 neoplasm of cervix Medical C enter (procedure) [code = 508261590] Future Scheduled 2012 Screening for malignant [facility] 00:00:00 neoplasm of cervix Medical C enter (procedure) [code = 518839044] Future Scheduled 2012 Screening for malignant [facility] 00:00:00 neoplasm of cervix Medical C enter (procedure) [code = 895975888] Future Scheduled 2012 Screening for malignant [facility] 00:00:00 neoplasm of cervix Medical C enter (procedure) [code = 867922740] Future Scheduled 2011 Lipid panel (procedure) [facility] 00:00:00 [code = 59057235] Medical Ce nter Future Scheduled 2011 Lipid panel (procedure) [facility] 00:00:00 [code = 69796219] Medical Ce nter Future Scheduled 2011 Lipid panel (procedure) [facility] 00:00:00 [code = 13402755] Medical Ce nter Future Scheduled 2011 Lipid panel (procedure) [facility] 00:00:00 [code = 18391503] Medical Ce nter Future Scheduled 2009 HEPATITIS [...] HEPATITIS C Medical Center SCREENING] Future Scheduled [address] [facility] 00:00:00 virus screening Medical Cent er (procedure) [code = 512952519] Future Scheduled [address] [facility] 00:00:00 Counseling and Screening Med ical Center (12+) [code = Tobacco Cessation Counseling and Screening (12+)] Future Scheduled [address] [facility] 00:00:00 Counseling and Screening Med ical Center (12+) [code = Tobacco Cessation Counseling and Screening (12+)] Future Scheduled [address] [facility] 00:00:00 Counseling and Screening [facility] (12+) [code = Tobacco Cessation Counseling and Screening (12+)] Future Scheduled [address] [facility] 00:00:00 Counseling and Screening [facility] (12+) [code = Tobacco Cessation Counseling and Screening (12+)] Future Scheduled 2001 Diabetic foot examination [facility] 00:00:00 (regime/therapy) [code = [facility] 501684049] Future Scheduled 2001 Urine screening for [facility] 00:00:00 protein (procedure) [code [facility] = 708690673] Future Scheduled 2001 DIABETIC EYE EXAM [code = [facility] 00:00:00 DIABETIC EYE EXAM] Medical C enter Future Scheduled 2001 DIABETIC EYE EXAM [code = [facility] 00:00:00 DIABETIC EYE EXAM] Medical C enter Future Scheduled 2001 Diabetic foot examination [facility] 00:00:00 (regime/therapy) [code = [facility] 729147100] Future Scheduled 2001 Urine screening for [facility] 00:00:00 protein (procedure) [code [facility] = 268579655] Future Scheduled 2001 DIABETIC EYE EXAM [code = [facility] 00:00:00 DIABETIC EYE EXAM] Medical C enter Future Scheduled 2001 Diabetic foot examination [facility] 00:00:00 (regime/therapy) [code = [facility] 325203303] Future Scheduled 2001 Urine screening for [facility] 00:00:00 protein (procedure) [code [facility] = 436815373] Future Scheduled 2001 DIABETIC EYE EXAM [code = [facility] 00:00:00 DIABETIC EYE EXAM] Medical C enter Future Scheduled 2001 Diabetic foot examination [facility] 00:00:00 (regime/therapy) [code = [facility] 047345638] Future Scheduled 2001 Urine screening for [facility] 00:00:00 protein (procedure) [code [facility] = 363333271] Future Scheduled 1997 Pneumococcal Vaccine: [facility]:00 0-64 Years (1 - PCV) Medical Center [code = Pneumococcal Vaccine: 0-64 Years (1 - PCV)] Future Scheduled 1997 PNEUMOCOCCAL [...] = COVID-19 VACCINE Med ical Center (#1)] Encounters Start End Encounter Admission Attending Care Care Encounter Source Date/Time Date/Time Type Type Clinicians Facility Department ID 2023-05-18 2023-05-18 Outpatient R DEB IAVICKIE [facility] [id number] Univers 13:00:00 13:00:00 LUDY gan [facility] 2023-03-18 2023-03-18 Office ANSON Boyd [id number] Univers 11:00:00 11:00:00 Visit [facility] 350.1.13.10 it y [facility] 4.2.7.2.686 [place] as NAOMI?BLEA [phone] Az dical [address] MEDICAL OFFICE [facility] 2023-03-18 2023-03-18 Outpatient R DEB, [facility] [id number] Univers 11:00:00 10:56:46 LUDY ity of [facility] 2023-03-17 2023-03-17 Emergency X Minna WALTER [facility] ERT [id number] Univers 16:18:00 19:47:00 ity of [facility] 2023-03-17 2023-03-17 Emergency Minna Walter [facility] 1.2.840.114 [id number] Univers 16:18:00 19:47:00 Codie [place] 350.1.13.10 i ty of [place] [phone] [address] 2023-03-15 2023-03-15 Patient Doctor [facility] 1.2.840.114 [id number] Univers 00:00:00 00:00:00 Secure Msg Unassigned, HEALTH 350.1.13.10 ity of [place] 4.2.7.2.686 Dwight as NAOMI?BLEA [phone] Az tisha BONNER 198 [facility] OFFICE [facility] 2023-03-14 2023-03-14 Telephone Romina [facility] [id number] Univers 00:00:00 00:00:00 Avis HEALTH 350.1.13.10 it y of [place] 4.2.7.2.686 Dwight as NAOMI?BLEA [phone] Az tisha BONNER 220 [facility] OFFICE [facility] 2023-03-08 2023-03-08 Outpatient R DUNIA RODRIGUEZ [facility] U TMB [id number] Univers 15:30:00 16:07:22 DUNIA RODRIGUEZ ity [facility] 2023-03-08 2023-03-08 Nurse Nurse, [facility] 1.2.840.114 [id number] Univers 15:30:00 16:07:22 Visit Dunia Rodriguez 350.1.1 3.10 ity [facility] 4.[place] [phone] Me dical NAL 134 [facility] 2023-02-22 2023-02-22 [facility] 1.2.840.114 [id number] Univers 15:00:00 15:15:00 Visit [employer] [facility] 350.1.13.10 it y of [place] 4.2.7.2.686 Dwight as NAOMI?BLEA [phone] Me dical KNEY 198 [facility] 2023-02-22 2023-02-22 Office Romina [facility] 1.2.840.114 [id number] Univers 11:00:00 12:31:35 Visit [facility] 350.1.13.10 it y of [place] 4.2.7.2.686 Dwight as NAOMI?BLEA [id number] Az dical HA 220 [facility] 2023-02-22 2023-02-22 Outpatient [facility] [id number] Univers 11:00:00 12:31:35 [facility] 2023-02-03 [facility] [id number] Univers 15:00:00 15:00:00 [facility] 2023-01-14 2023-01-14 Emergency EM Lilli, [facility] GINA [id number] [facility] 17:34:00 18:32:00 Neymar Conway n [facility] 2023-01-03 2023-01-03 [facility] [id number] Univers 15:40:00 23:59:00 [facility] 2023-01-03 2023-01-03 Office [facility] 1.2.840.114 [id number] Univers 15:45:00 16:15:00 Visit [facility] 350.1.13.10 it y of [place] 4.2.7.2.686 Dwight as NAOMI?BLEA [phone] Me dical HA 198 [facility] 2022-12-23 2022-12-23 Orders Doctor CLARK 1.2.840.114 [id number] Univers 00:00:00 00:00:00 Only Unassigned, HERNAN 350.1.13.10 ity of [place] [facility] 4.2.7.2.686 Dwight as [phone] [address] 2022-12-21 2022-12-21 Orders Doctor AMBER 1.2.840.114 [id number] Univers 00:00:00 00:00:00 Only Unassigned, HERNAN 350.1.13.10 ity of [place] [facility] 4.2.7.2.686 Dwight as [phone] [address] 2022-12-21 2022-12-21 Telephone [facility] 1.2.840.114 [id number] Univers 00:00:00 00:00:00 Ludy Montelongo HEALTH 350.1.13.10 it y of [facility] 4.2.7.2.686 Dwight as NAOMI?BLEA [phone] Az dic[address] MEDICAL OFFICE BUILDING 2022-12-20 2022-12-20 Surgery [facility] 1.2.497.432 [id number] Univers 15:50:00 19:51:00 Ludy MENJIVAR 350.1.13.10 i ty of [place].2.[place] SURGICAL [id number] [facility] [address] [place] 2022-12-20 2022-12-20 Outpatient R [facility] [id number] Univers 13:33:00 19:01:00 LUDY ity of [facility] 2022-12-20 2022-12-20 [facility] 1.2.840.114 [id number] Univers 13:33:00 19:01:00 Encounter Ludy MENJIVAR 350.1.13.10 ity of [facility] 4.2.7.2.[place] [id number] [facility] [address] [place] 2022-12-20 2022-12-20 Orders Doctor AMBER 1.2.840.114 [id number] Univers 00:00:00 00:00:00 Only Unassigned, HERNAN 350.1.13.10 ity of [place] [facility] 4.2.7.2.686 Dwight as [phone] [address] 2022-12-17 2022-12-17 Telephone Deb [facility] 1..840.114 10 [id number] Univers 00:00:00 00:00:00 Ludy L HEALTH 350.1.13.10 it y of [place] 4.2.7.2.686 Dwight as NAOMI?BLEA [id number] Az dical KNEY [address] [place] MEDICAL OFFICE BUILDING 2022-12-17 2022-12-17 Transition EZEKIEL ReyesYeimi 1.2.840.114 [id number] Univers 00:00:00 00:00:00 of Care Cynthia HAGEN 350.1.13.10 i ty of [place]2.[place].2.[place] [id number] [facility] [address] 2022-12-14 2022-12-16 Inpatient X JUAN MIGUEL [facility] [id number] Univers 14:13:00 15:52:00 GARRETT gan o f [facility] 2022-12-14 2022-12-16 Hospital Ling [place] [facility] 1.2.84 0.114 [id number] Univers 14:13:00 15:52:00 Encounter Rodolfo Sparrow 350.1.13.10 ity of [place] 4.2.7.2.686 [facility] [id number] [facility] [address] [place] 2022-12-14 2022-12-14 Outpatient R DUNIA RODRIGUEZ [facility] U [facility] [id number] Univers 14:00:00 14:08:23 DUNIA RODRIGUEZ ity of [facility] 2022-12-14 2022-12-14 Nurse Nurse, [facility] 1.2.840.114 [id number] Univers 14:00:00 14:08:23 Visit Dunia Rodriguez 350.1.1 3.10 ity of [place].2.[place] [id number] Az diceve NAL 134 [facility] 2022-12-14 2022-12-14 Telephone Deb [facility] 1.2.840.114 [id number] Univers 00:00:00 00:00:00 Ludy Montelongo HEALTH 350.1.13.10 it y of [place] 4.2.7.2.686 Dwight as NAOMI?BLEA [phone] Az tisha BONNER 198 [facility] OFFICE [facility] 2022-12-10 2022-12-10 Telephone Boyd [facility] 1.2.840.114 [id number] Univers 00:00:00 00:00:00 Ludy Montelongo HEALTH 350.1.13.10 it y of [place] 4.2.7.2.686 Dwight as NAOMI?BLEA [id number] Az tisha BONNER 198 [facility] OFFICE [facility] 2022-12-10 2022-12-10 Orders Doctor ABMER 1.2.840.114 [id number] Univers 00:00:00 00:00:00 Only Unassigned, HERNAN 350.1.13.10 ity of [place] [facility] 4.2.7.2.686 Dwight as [phone] [address] 2022-12-07 2022-12-07 Outpatient R KENYATTA RODRIGUEZSOL [facility] U [facility] [id number] Univers 09:00:00 09:59:50 MONA-JOSE DUNIA ity [facility] 2022-12-07 2022-12-07 [facility] 1.2.840.114 [id number] Univers 09:00:00 09:59:50 [facility] 350.1.13.10 ity of [place] 4.2.7.2.[place] [id number] Az tisha [facility] 134 [facility] 2022-12-07 2022-12-07 Orders Doctor AMBER 1.2.840.114 [id number] Univers 00:00:00 00:00:00 Only Unassigned, HERNAN 350.1.13.10 ity of [place] [facility] 4.2.7.2.686 Dwight as [id number] [address] 2022-11-16 2022-11-16 Outpatient R MONA-KENYATTA GARCIASOL [facility] U [facility] [id number] Univers 14:30:00 14:30:00 MONA-JOSE DUNIA ity [facility] 2022-11-10 2022-11-10 Orders Doctor AMBER 1.2.840.114 [id number] Univers 00:00:00 00:00:00 Only Unassigned, HERNAN 350.1.13.10 ity of [place] [facility] 4.2.7.2.686 Dwight as [id number] [address] 2022-11-04 2022-11-04 Telephone Alok [facility] 1.2.840.114 10 [id number] Univers 00:00:00 00:00:00 [facility]ar [facility] 350.1.13.10 it y of [place] 4.2.7.2.686 Dwight as NAOMI?BLEA [id number] [address] MEDICAL OFFICE BUILDING 2022-10-29 2022-10-29 Orders Doctor CLARK 1.2.840.114 [id number] Univers 00:00:00 00:00:00 Only Unassigned, HERNAN 350.1.13.10 ity of [place] [facility] 4.2.7.2.686 Dwight as [id number] [address] 2022-07-05 2022-07-07 Hospital ER [facility] [id number] [facility] 01:07:00 16:32:00 Encounter Mayo Cisse, [facility] 2022-07-05 2022-07-07 [facility] [id number] [facility] 01:07:00 16:32:00 Encounter Mayo Cisse, [facility] 2022-07-05 2022-07-07 Inpatient ER [facility] Medical ICU 2 [id number] [facility] 01:07:00 16:32:00 [facility] 2020-12-12 2020-12-12 Outpatient R ALOK [facility] [id number] [facility] 13:30:00 13:30:00 NEYMAR gan [facility] 2020-06-20 2020-06-20 Office Alok [facility] [id number] 10:27:33 12:32:24 Visit Neymar Menjivar 350.1.13.10 [place] 4.2.7.2.686 Indu [id number] [address] 2020-06-20 2020-06-20 Outpatient Nalini CAVAZOS, [facility] [id number] [facility] 11:00:00 11:00:00 NEYMAR gan [facility] 2018-07-27 2018-07-27 Outpatient ROHAN Fuchs W [id number] [place] 10:52:00 10:52:00 [facility] Yaima Hea [facility] 2018-06-14 2018-06-14 Outpatient ROHAN Fuchs Geovani [id number] [place] 11:19:00 11:19:00 Milliejason Erwin Hea [facility] 2018-05-23 2018-05-23 Outpatient ROHAN Yu CHW [id number] [place] 16:00:00 16:00:00 [facility] Results Test Description Test Time Test Comments Results Result Comments Source POCT GLUCOSE (AUTOMATED) 2022-12-20 22:04:26 Test Item Value Reference Range Interpretation Comme nts POCT GLU (test code = 8628831381) 233 mg/dL 70-110 H Lab Interpretation (test code = 52724-2) Abnormal [facility] GLUCOSE (AUTOMATED)2022-12-20 22:04:26 Test Item Value Reference Range Interpretation Comments POCT GLU (test code = 0195359748) 233 mg/dL 70-110 H Lab Interpretation (test code = Abnormal 28500-5) [facility] GLUCOSE (AUTOMATED)2022-12-20 18:58:22 Test Item Value Reference Range Interpretation Comments POCT GLU (test code = 9363920286) 244 mg/dL 70-110 H Lab Interpretation (test code = Abnormal 08430-5) [facility] GLUCOSE (AUTOMATED)2022-12-20 18:58:22 Test Item Value Reference Range Interpretation Comments POCT GLU (test code = 2610359485) 244 mg/dL 70-110 H Lab Interpretation (test code = Abnormal 58107-7) [facility] [id number] 18:54:00 Test Item Value Reference Range Interpretation Comments ABO & RH (test code = 20) A Positive IAT (test code = 1185) Negative [facility] [id number] 18:54:00 Test Item Value Reference Range Interpretation Comments ABO & RH (test code = 20) A Positive IAT (test code = 1185) Negative [facility] [id number] 18:50:00 Test Item Value Reference Range Interpretation Comments POCT PREG (test code = 1605) Negative On board controls acceptable with Yes C Line (test code = 3574) POCT PREG LOT # (test code = 3575) [id number] POCT PREG TEST DATE (test 11/13/23 code = 3576) Lab Interpretation (test code = Normal 98125-3) [facility] [id number] 18:50:00 Test Item Value Reference Range Interpretation Comments POCT PREG (test code = 1605) Negative On board controls acceptable with Yes C Line (test code = 3574) POCT PREG LOT # (test code = 3575) [id number] POCT PREG TEST DATE (test 11/13/23 code = 3576) Lab Interpretation (test code = Normal 74191-6) [facility] GLUCOSE (AUTOMATED)2022-12-16 16:34:30 Test Item Value Reference Range Interpretation Comments POCT GLU (test code = 3230418658) 268 mg/dL 70-110 H Lab Interpretation (test code = Abnormal 97935-4) [facility] GLUCOSE (AUTOMATED)2022-12-16 14:56:28 Test Item Value Reference Range Interpretation Comments POCT GLU (test code = 3602563338) 253 mg/dL 70-110 H Lab Interpretation (test code = Abnormal 49428-0) [facility] GLUCOSE (AUTOMATED)2022-12-16 09:22:01 Test Item Value Reference Range Interpretation Comments POCT GLU (test code = 4351605257) 219 mg/dL 70-110 H Lab Interpretation (test code = Abnormal 82004-7) [facility] GLUCOSE (AUTOMATED)2022-12-16 05:24:27 Test Item Value Reference Range Interpretation Comments POCT GLU (test code = 6368807650) 277 mg/dL 70-110 H Lab Interpretation (test code = Abnormal 14546-7) [facility] GLUCOSE (AUTOMATED)2022-12-16 01:22:50 Test Item Value Reference Range Interpretation Comments POCT GLU (test code = 8907579805) 176 mg/dL 70-110 H Lab Interpretation (test code = Abnormal 75491-7) [facility] GLUCOSE (AUTOMATED)2022-12-15 21:36:35 Test Item Value Reference Range Interpretation Comments POCT GLU (test code = 1056836942) 214 mg/dL 70-110 H Lab Interpretation (test code = Abnormal 16470-6) [facility] GLUCOSE (AUTOMATED)2022-12-15 16:19:59 Test Item Value Reference Range Interpretation Comments POCT GLU (test code = 1199977885) 183 mg/dL 70-110 H Lab Interpretation (test code = Abnormal 12196-7) [facility] GLUCOSE (AUTOMATED)2022-12-15 12:25:47 Test Item Value Reference Range Interpretation Comments POCT GLU (test code = 7138267198) 242 mg/dL 70-110 H Lab Interpretation (test code = Abnormal 38283-6) [facility] GLUCOSE (AUTOMATED)2022-12-15 09:09:50 Test Item Value Reference Range Interpretation Comments POCT GLU (test code = 6020382659) 295 mg/dL 70-110 H Lab Interpretation (test code = Abnormal 61564-7) [facility] GLUCOSE (AUTOMATED)2022-12-15 05:22:24 Test Item Value Reference Range Interpretation Comments POCT GLU (test code = 2960115271) 128 mg/dL 70-110 H Lab Interpretation (test code = Abnormal 16314-2) [facility] GLUCOSE (AUTOMATED)2022-12-15 04:10:00 Test Item Value Reference Range Interpretation Comments POCT GLU (test code = 9905930497) 97 mg/dL 70-110 Lab Interpretation (test code = Normal 66714-5) [facility] GLUCOSE (AUTOMATED)2022-12-15 03:10:48 Test Item Value Reference Range Interpretation Comments POCT GLU (test code = 6850547170) 103 mg/dL 70-110 Lab Interpretation (test code = Normal 20273-7) [facility] GLUCOSE (AUTOMATED)2022-12-15 02:12:04 Test Item Value Reference Range Interpretation Comments POCT GLU (test code = 2059602399) 118 mg/dL 70-110 H Lab Interpretation (test code = Abnormal 67204-8) [facility] GLUCOSE (AUTOMATED)2022-12-15 01:05:21 Test Item Value Reference Range Interpretation Comments POCT GLU (test code = 2354016622) 161 mg/dL 70-110 H Lab Interpretation (test code = Abnormal 93521-7) [facility] GLUCOSE (AUTOMATED)2022-12-15 00:11:30 Test Item Value Reference Range Interpretation Comments POCT GLU (test code = 2747190614) 196 mg/dL 70-110 H Lab Interpretation (test code = Abnormal 40244-1) [facility] GLUCOSE (AUTOMATED)2022-12-14 23:07:32 Test Item Value Reference Range Interpretation Comments POCT GLU (test code = 8567444696) 195 mg/dL 70-110 H Lab Interpretation (test code = Abnormal 19104-6) [facility] GLUCOSE (AUTOMATED)2022-12-14 22:19:16 Test Item Value Reference Range Interpretation Comments POCT GLU (test code = 8210746000) 237 mg/dL 70-110 H Lab Interpretation (test code = Abnormal 01128-3) [facility] GLUCOSE(AGE >30DAYS)2022-12-14 22:19:00 Test Item Value Reference Range Interpretation Comments POCT Glu (age>30days) (test code = 237 mg/dL 70-110 A 3342) Lab Interpretation (test code = Abnormal 84037-5) [facility] GLUCOSE (AUTOMATED)2022-12-14 21:06:09 Test Item Value Reference Range Interpretation Comments POCT GLU (test code = 0177487560) 335 mg/dL 70-110 H Lab Interpretation (test code = Abnormal 28235-5) [facility] GLUCOSE(AGE >30DAYS)2022-12-14 21:06:00 Test Item Value Reference Range Interpretation Comments POCT Glu (age>30days) (test code = 335 mg/dL 70-110 A 3342) Lab Interpretation (test code = Abnormal 68545-9) [facility] GLUCOSE (AUTOMATED)2022-12-14 19:43:16 Test Item Value Reference Range Interpretation Comments POCT GLU (test code = 4447491503) 469 mg/dL 70-110 HH Lab Interpretation (test code = Abnormal 21741-9) [facility] GLUCOSE(AGE >30DAYS)2022-12-14 19:41:00 Test Item Value Reference Range Interpretation Comments POCT Glu (age>30days) (test code = 469 mg/dL 70-110 A 3342) Lab Interpretation (test code = Abnormal 08527-7) [facility] [id number] 14:57:00 Test Item Value Reference Range Interpretation Comments POCT PREG (test code = 1605) Negative On board controls acceptable with C Yes Line (test code = 3574) POCT PREG LOT # (test code = 3575) POCT PREG TEST DATE (test code = 3576) [facility] [id number] 14:57:00 Test Item Value Reference Range Interpretation Comments POCT PREG (test code = 1605) Negative On board controls acceptable with C Yes Line (test code = 3574) POCT PREG LOT # (test code = 3575) POCT PREG TEST DATE (test code = 3576) [id number] 07:01:24 Test Item Value Reference Range Interpretation Comments CULTURE (BEAKER) (test No growth in 5 days code = 1095) POC-Glucose [id number] 11:21:34 Test Item Value Reference Range Interpretation Comments POC-Glucose Meter (test 258 mg/dL 70-110 H : TE STED AT [facility] code = 1538) [address] [place] [address], [facility] 30: Office Services Specialist/Techni yessi ID = [id number] for CLAYTON PLUMMER IE Lab Interpretation (test Abnormal code = 03773-1) [facility] [id number] 11:21:34 Test Item Value Reference Range Interpretation Comments POC-Glucose Meter (test 258 mg/dL 70-110 H : TE STED AT [facility] code = 1538) [address] [place] [address], [facility] 30: Office Services Specialist/Techni yessi ID = [id number] for CLAYTON PLUMMER IE Lab Interpretation (test Abnormal code = 27520-1) [facility] [id number] 11:21:34 Test Item Value Reference Range Interpretation Comments POC-Glucose Meter (test 258 mg/dL 70-110 H : TE STED AT [facility] code = 1538) [address] [facility], 770 30: Office Services Specialist/Techni yessi ID = [id number] for CLAYTON PLUMMER IE Lab Interpretation (test Abnormal code = 32520-8) [facility] [id number] 11:21:34 Test Item Value Reference Range Interpretation Comments POC-Glucose Meter (test 258 mg/dL 70-110 H : TE STED AT [facility] code = 1538) [address] [facility], 770 30: Office Services Specialist/Techni yessi ID = [id number] for TONY PLUMMERJENI IE Lab Interpretation (test Abnormal code = 52638-2) [facility] [id number] 11:21:34 Test Item Value Reference Range Interpretation Comments POC-GLUCOSE METER 258 mg/dL 70-110 H : TESTED A T [facility] 6720 (BEAKER) (test code [facility], = 1538) [address]: Office Services Specialist/Techni yessi ID = [id number] for WILS ON, TONYSTANIE POCT-GLUCOSE [id number] 08:11:52 Test Item Value Reference Range Interpretation Comments POC-GLUCOSE METER 139 mg/dL 70-110 H : TESTED A T [facility] 6720 (BEAKER) (test code [facility], = 1538) [address]: Office Services Specialist/Techni yessi ID = [id number] for WILS ON, SHASTANIE BASIC METABOLIC [id number] 06:34:19 Test Item Value Reference Range Interpretation [...] not appl icable for dialysis patien ts Office Services Specialist ID - MEET [id number] 06:34:19 Test Item Value Reference Range Interpretation Comments MAGNESIUM (BEAKER) (test code = 1.8 mg/dL 1.6-2.6 627) Office Services Specialist ID - MEET [id number] 06:34:19 Test Item Value Reference Range Interpretation Comments PHOSPHORUS (BEAKER) (test code = 3.0 mg/dL 2.3-4.7 604) Office Services Specialist ID - MEET [facility] W/PLT COUNT & AUTO [id number] 05:12:05 Test Item Value Reference Range Interpretation [...] PERCENT (BEAKER) (test code = 2801) POCT-GLUCOSE [id number] 21:47:45 Test Item Value Reference Range Interpretation Comments POC-GLUCOSE METER 286 mg/dL 70-110 H : TESTED A T [facility] 6720 (BEAKER) (test code = [facility] [employer] [facility] [place], 1538) 24711: Office Services Specialist/Techni yessi ID = [id number] for SANFORD ZAMUDIO POCT-GLUCOSE [id number] 17:50:44 Test Item Value Reference Range Interpretation Comments POC-GLUCOSE METER 68 mg/dL 70-110 L : TESTED A T [facility] 6720 (BEAKER) (test code = [facility] [employer] [facility] [place], 1538) 18736: Office Services Specialist/Techni yessi ID = [id number] for MARQUIS TIAN RAJI POCT-GLUCOSE [id number] 16:49:27 Test Item Value Reference Range Interpretation Comments POC-GLUCOSE METER 72 mg/dL 70-110 : TESTED A T [facility] 6720 (BEAKER) (test code = [facility] [place], 1538) 78714: Office Services Specialist/Techni yessi ID = [id number] for Arcelia porras (contract), Tiffany david POCT-GLUCOSE [id number] 16:31:02 Test Item Value Reference Range Interpretation Comments POC-GLUCOSE METER 52 mg/dL 70-110 L : TESTED A T [facility] 6720 (BEAKER) (test code = [facility] [place], 1538) 45258: Office Services Specialist/Techni yessi ID = [id number] for Arcelia porras (contract), Tiffany david POCT-GLUCOSE [id number] 11:09:38 Test Item Value Reference Range Interpretation Comments POC-GLUCOSE METER 197 mg/dL 70-110 H : TESTED A T [facility] 6720 (BEAKER) (test code [facility], = 1538) 17417: Office Services Specialist/Techni yessi ID = [id number] for Arcelia porras (contract), Tiffany david BLOOD GAS, [id number] 09:37:51 Test Item Value Reference Range Interpretation [...] (test code = 1819) 21.0 BASIC METABOLIC [id number] 09:05:04 Test Item Value Reference Range Interpretation [...] eGF R is based on the CKD-EPI 202 equation that d oes not use a race coefficientEsti mated GFR is not as accur ate as Creatinine Carmen gray in predicting glom erular filtration rate . Estimated GFR is not appl icable for dialysis patien ts Office Services Specialist ID - PIAYA [id number] 08:57:01 Test Item Value Reference Range Interpretation Comments MAGNESIUM (BEAKER) 2.0 mg/dL 1.6-2.6 Specimen slightly (test code = 627) hemolyzed Office Services Specialist ID - PIAYA [id number] 08:57:01 Test Item Value Reference Range Interpretation Comments PHOSPHORUS (BEAKER) 2.4 mg/dL 2.3-4.7 Specimen slightly (test code = 604) hemolyzed Office Services Specialist ID - PIAYA LPOCT-GLUCOSE [id number] 07:53:47 Test Item Value Reference Range Interpretation Comments POC-GLUCOSE METER 274 mg/dL 70-110 H : TESTED A T [facility] 6720 (BEAKER) (test [facility] [place], = 1538) [address]260: Office Services Specialist/Techni yessi ID = [id number] for Arcelia porras (contract), Tiffany david CBC W/PLT COUNT & AUTO [id number] 06:02:22 Test Item Value Reference Range Interpretation [...] 0.00-1.00 PERCENT (BEAKER) (test code = 2801) [id number] 05:53:00 Test Item Value Reference Range Interpretation Comments MAGNESIUM (BEAKER) 2.4 mg/dL 1.6-2.6 Specimen slightly (test code = 627) hemolyzed Office Services Specialist ID - JUSTEN [id number] 05:53:00 Test Item Value Reference Range Interpretation Comments PHOSPHORUS (BEAKER) 2.1 mg/dL 2.3-4.7 L Specimen slightly (test code = 604) hemolyzed Office Services Specialist ID - JUSTEN LBASIC METABOLIC [id number] 05:53:00 Test Item Value Reference Range Interpretation [...] not appl icable for dialysis patien ts Office Services Specialist ID - PIAYA LBLOOD GAS, [id number] 05:26:22 Test Item Value Reference Range Interpretation [...] (test code = 1819) 21.0 BASIC METABOLIC [id number] 02:03:34 Test Item Value Reference Range Interpretation [...] eGF R is based on the CKD-EPI 202 equation that d oes not use a race coefficientEsti mated GFR is not as accur ate as Creatinine Carmen gray in predicting glom erular filtration rate . Estimated GFR is not appl icable for dialysis patien ts Office Services Specialist ID - JUSTEN [id number] 01:45:29 Test Item Value Reference Range Interpretation Comments MAGNESIUM (BEAKER) (test code = 1.7 mg/dL 1.6-2.6 627) Office Services Specialist ID - JUSTEN [id number] 01:45:29 Test Item Value Reference Range Interpretation Comments PHOSPHORUS (BEAKER) (test code = 2.4 mg/dL 2.3-4.7 604) Office Services Specialist ID - JUSTEN LBLOOD GAS, [id number] 01:25:28 Test Item Value Reference Range Interpretation [...] (BEAKER) (test code = 1819) 21.0 POCT-GLUCOSE [id number] 00:15:44 Test Item Value Reference Range Interpretation Comments POC-GLUCOSE METER 100 mg/dL 70-110 : TESTED A T [facility] 6720 (BEAKER) (test code = [facility] 1538) 94367: Office Services Specialist/Techni yessi ID = [id number] for MANOJ MEDINA FELICE POCT-GLUCOSE [id number] 23:15:21 Test Item Value Reference Range Interpretation Comments POC-GLUCOSE METER 101 mg/dL 70-110 : TESTED A T [facility] 6720 (BEAKER) (test code = [facility] [place], 1538) 53835: Office Services Specialist/Techni yessi ID = [id number] for Al iPoppy POCT-GLUCOSE [id number] 22:24:36 Test Item Value Reference Range Interpretation Comments POC-GLUCOSE METER 73 mg/dL 70-110 : TESTED A T [facility] 6720 (BEAKER) (test code = NATALIE Gayle [facility] [place], 1538) 62571: Office Services Specialist/Techni yessi ID = [id number] for FELICE SANTOS BASIC METABOLIC [id number] 22:00:23 Test Item Value Reference Range Interpretation [...] (test code = 697) EGFR (BEAKER) 121 Interpretati on of eGFR (test code = [...] not appl icable for dialysis patien ts Office Services Specialist ID - [id number] 22:00:23 Test Item Value Reference Range Interpretation Comments MAGNESIUM (BEAKER) (test code = 1.8 mg/dL 1.6-2.6 627) Office Services Specialist ID - [id number] 22:00:23 Test Item Value Reference Range Interpretation Comments PHOSPHORUS (BEAKER) (test code = 2.8 mg/dL 2.3-4.7 604) Office Services Specialist ID - PHIOOD GAS, [id number] 21:35:45 Test Item Value Reference Range Interpretation [...] (BEAKER) (test code = 1819) 21.0 POCT-GLUCOSE [id number] 21:26:21 Test Item Value Reference Range Interpretation Comments POC-GLUCOSE METER 92 mg/dL 70-110 : TESTED A T [facility] 6720 (BEAKER) (test code = [facility] [place], 153) 83353: Office Services Specialist/Techni yessi ID = [id number] for Crista, Poppy POCT-GLUCOSE [id number] 16:51:00 Test Item Value Reference Range Interpretation Comments POC-GLUCOSE METER 176 mg/dL 70-110 H : TESTED A T [facility] 6720 (BEAKER) (test code = [facility] [place], 1538) 77733: Office Services Specialist/Techni yessi ID = [id number] for Annjensenhiarico, Daisy POCT-GLUCOSE [id number] 15:50:57 Test Item Value Reference Range Interpretation Comments POC-GLUCOSE METER 174 mg/dL 70-110 H : TESTED A T [facility] 6720 (BEAKER) (test code = [facility] [place], 153) 45295: Office Services Specialist/Techni yessi ID = [id number] for IB RAHIM, SERKALEM BASIC METABOLIC [id number] 14:41:08 Test Item Value Reference Range Interpretation [...] not appl icable for dialysis patien ts Office Services Specialist ID - [id number] 14:39:22 Test Item Value Reference Range Interpretation Comments MAGNESIUM (BEAKER) (test code = 2.1 mg/dL 1.6-2.6 627) Office Services Specialist ID - [id number] 14:39:22 Test Item Value Reference Range Interpretation Comments PHOSPHORUS (BEAKER) (test code = 1.8 mg/dL 2.3-4.7 L 604) Office Services Specialist ID - MARCOPOCT-GLUCOSE [id number] 14:36:37 Test Item Value Reference Range Interpretation Comments POC-GLUCOSE METER 171 mg/dL 70-110 H : TESTED A T [facility] 6720 (BEAKER) (test code = [place], 1538) 72983: Office Services Specialist/Techni yessi ID = [id number] for IB RAHIM, SERKALEM POCT-GLUCOSE [id number] 13:31:59 Test Item Value Reference Range Interpretation Comments POC-GLUCOSE METER 127 mg/dL 70-110 H : TESTED A T [facility] 6720 (BEAKER) (test code = [facility] [place], 1538) 79971: Office Services Specialist/Techni yessi ID = [id number] for IB RAHIM, SERKALEM POCT-GLUCOSE [id number] 12:55:21 Test Item Value Reference Range Interpretation Comments POC-GLUCOSE METER 165 mg/dL 70-110 H : TESTED A T [facility] 6720 (BEAKER) (test code = [facility] [place], 1538) 17850: Office Services Specialist/Techni yessi ID = [id number] for Daisy Pascal BLOOD GAS, [id number] 12:48:29 Test Item Value Reference Range Interpretation [...] (BEAKER) (test code = 1819) 21.0 POCT-GLUCOSE [id number] 12:33:46 Test Item Value Reference Range Interpretation Comments POC-GLUCOSE METER 174 mg/dL 70-110 H : TESTED A T [facility] 6720 (BEAKER) (test code = [facility] [place], 1538) 02113: Office Services Specialist/Techni yessi ID = [id number] for IB RAHIM, SERKALEM POCT-GLUCOSE [id number] 10:48:24 Test Item Value Reference Range Interpretation Comments POC-GLUCOSE METER 189 mg/dL 70-110 H : TESTED A T [facility] 6720 (BEAKER) (test code = [facility] [place], 1538) 32285: Office Services Specialist/Techni yessi ID = [id number] for SERGIO ROSAS HEMOGLOBIN [id number] 10:33:22 Test Item Value Reference Range Interpretation Comments HEMOGLOBIN A1C 9.9 % See_Comment H [Automated m essage] ELECTROPHORESIS (BEAKER) The system which (test code = 3811) generated this result transmitted ref erence range: <=5.6%. The reference range was not used to int erpret this result as normal/abnormal . "The A1c is measured using a [facility]-certified method. HbA1c value equal to or greater than 6.5% as thediagnosis cutoff for diabetes. An HbA1c value of 5.7- 6.4% indicates increased risk for diabetes (prediabetes)."Office Services Specialist ID - ADMPOCT- GLUCOSE [id number] 09:37:04 Test Item Value Reference Range Interpretation Comments POC-GLUCOSE METER 211 mg/dL 70-110 H : TESTED A T [facility] 6720 ([facility]) (test code = NATALIE Gayle [facility] [place], 1538) 71179: Office Services Specialist/Techni yessi ID = [id number] for SERGIO ROSAS [id number] 09:19:13 Test Item Value Reference Range Interpretation Comments PHOSPHORUS (BEAKER) (test code = 1.2 mg/dL 2.3-4.7 LL 604) Office Services Specialist ID - CHARLIE GBASIC METABOLIC [id number] 09:08:43 Test Item Value Reference Range Interpretation [...] De scription 1092) sq m Result G1 [place] l or high >=90 G2 Mildly decreased [...] not appl icable for dialysis patien ts Office Services Specialist ID - CHARLIE [id number] 09:05:45 Test Item Value Reference Range Interpretation Comments MAGNESIUM (BEAKER) (test code = 2.1 mg/dL 1.6-2.6 627) Office Services Specialist ID - CHARLIE GPOCT-GLUCOSE [id number] 08:48:23 Test Item Value Reference Range Interpretation Comments POC-GLUCOSE METER 233 mg/dL 70-110 H : [facility] (BEAKER) (test code = NATALIE Gayle [facility] [place], 1538) 76790: Office Services Specialist/Techni yessi ID = [id number] for Daisy Pascal BLOOD GAS, [id number] 08:38:28 Test Item Value Reference Range Interpretation [...] (BEAKER) (test code = 1819) 21.0 Screen, [id number] 08:10:39 Test Item Value Reference Range Interpretation Comments Preg Test, Ur (test code = 2112-1) Negative Negative Lab Interpretation (test code = Normal 83546-3) [facility] [id number] 08:10:39 Test Item Value Reference Range Interpretation Comments Preg Test, Ur (test code = 2112-1) Negative Negative Lab Interpretation (test code = Normal 45669-5) [facility], [id number] 08:10:39 Test Item Value Reference Range Interpretation Comments Preg Test, Ur (test code = 2112-1) Negative Negative Lab Interpretation (test code = Normal 28536-2) [facility], [id number] 08:10:39 Test Item Value Reference Range Interpretation Comments Preg Test, Ur (test code = 2-1) Negative Negative Lab Interpretation (test code = Normal 30681-3) [facility], [id number] 08:10:39 Test Item Value Reference Range Interpretation Comments TEST URINE (BEAKER) (test Negative Negative code = 583) POCT-GLUCOSE [id number] 07:44:37 Test Item Value Reference Range Interpretation Comments POC-GLUCOSE METER 222 mg/dL 70-110 H : TESTED A T [facility] 6720 (23pressAKER) (test code = [facility] [place], 153) 11947: Office Services Specialist/Techni yessi ID = [id number] for IB RAHIM, SERKALEM POCT-GLUCOSE [id number] 06:44:09 Test Item Value Reference Range Interpretation Comments POC-GLUCOSE METER 245 mg/dL 70-110 H : TESTED A T [facility] 6720 (BEAKER) (test code = [facility] [place], 153) 62785: Office Services Specialist/Techni yessi ID = [id number] for DA VIS, FELICE TSH/FREE T4 IF [id number] 06:40:23 Test Item Value Reference Range Interpretation Comments THYROID STIMULATING HORMONE 0.958 uIU/mL 0.350-4.940 (BEAKER) (test code = 772) Office Services Specialist ID - CHARLIE GBASIC METABOLIC [id number] 06:01:56 Test Item Value Reference Range Interpretation [...] not appl icable for dialysis patien ts Office Services Specialist ID - CHARLIE GSARS-CoV2/Influenza/RSV [id number] 05:53:01 Test Item Value Reference Interpretation Comments Range SARS-COV2/RT-PCR Negative Negative The SARS-Co V-2 (test code = target nucleic 10814-0) [facility]. Negat alexys results do [...] (test code = [place] [address]-5) detected in thi s specimen. Influenza B RT-PCR Negative Negative The Flu B target (test code = nucleic acids [place] re 00630-1) not detected in this specimen. RSV by RT-PCR (test Negative Negative The RSV target code = 98477-5) nucleic acid s are not detected in [...] the Act. Fact Sheet for Healthcare Providers:https://w ww.[employer]/Docu ments/Xpert%20Xpres s%20SARS%20CoV-2/Fa ct%20Sheets/302-390 2%25YVSS-VNN-9%20HE ALTHCARE%20PROVIDER S%20FACT%20SHEET.pd f Fact Sheet for Healthcare Patients:https://ww w.[employer]/Docum ents/Xpert%20Xpress %20SARS%20Cov-2/Fac t%20Sheets/302-3801 %29GCGH-NJQ-3%20PAT IENT%20FACT%20SHEET .pdf Lab Interpretation Abnormal (test code = 39501-7) [facility] [id number] 05:53:01 Test Item Value Reference Interpretation Comments Range SARS-COV2/RT-PCR Negative Negative The SARS-Co V-2 (test code = target nucleic 92301-7) [facility]. Negat alexys results do [...] om SARS-CoV-2 in [facility] individual s suspected of COVID-19 by the ir healthcare provider. Influenza A RT-PCR Positive Negative AA The Flu A target (test code = [place] 444[address]-7) [facility]. Influenza B RT-PCR Negative Negative The Flu B target (test code = [place] 55291-7) not detected in this specimen. RSV by RT-PCR (test Negative Negative The RSV target code = 15457-8) nucleic acid s are not detected in [...] SARS-CoV-2/Flu/RSV by their healthcare provider. Results from [facility] Xpert Xpress SARS-CoV-2/Flu/RSV test should be correlated [...] the Act. Fact Sheet for Healthcare Providers:https://w [employer]/Docu ments/Xpert%20Xpres s%20SARS%20CoV-2/Fa ct%20Sheets/302-390 2%76BJEC-GLA-6%20HE ALTHCARE%20PROVIDER S%20FACT%20SHEET.pd f Fact Sheet for Healthcare Patients:https://Segment/Docum ents/Xpert%20Xpress %20SARS%20Cov-2/Fac t%20Sheets/302-3801 %20IHAK-TJS-4%20PAT IENT%20FACT%20SHEET .pdf Lab Interpretation Abnormal (test code = 93394-0) [facility]/RSV [id number] 05:53:01 Test Item Value Reference Interpretation Comments Range SARS-COV2/RT-PCR Negative Negative The SARS-Co V-2 (test code = target nucleic 63456-1) [facility]. Negat alexys results do [...] (test code = [place] [address]-8) [facility]. Influenza B RT-PCR Negative Negative The Flu B target (test code = [place] 16501-3) not detected in this specimen. RSV by RT-PCR (test Negative Negative The RSV target code = 88199-8) nucleic acid s are not detected in [...] SARS-CoV-2/Flu/RSV by their healthcare provider. Results from [facility] Xpert Xpress SARS-CoV-2/Flu/RSV test should be correlated [...] the Act. Fact Sheet for Healthcare Providers:https://w [employer]/Docu ments/Xpert%20Xpres s%20SARS%20CoV-2/Fa ct%20Sheets/302-390 2%39XQEQ-ASI-6%20HE ALTHCARE%20PROVIDER S%20FACT%20SHEET.pd f Fact Sheet for Healthcare Patients:https://Segment/Docum ents/Xpert%20Xpress %20SARS%20Cov-2/Fac t%20Sheets/302-3801 %85GKLE-JLM-4%20PAT IENT%20FACT%20SHEET .pdf Lab Interpretation Abnormal (test code = 99900-5) [facility]fluenza/RSV [id number] 05:53:01 Test Item Value Reference Interpretation Comments Range SARS-COV2/RT-PCR Negative Negative The SARS-Co V-2 (test code = target nucleic 50108-3) acids are not detected in thi s [...] (test code = [place] 9[address]-9) detected in thi s specimen. Influenza B RT-PCR Negative Negative The Flu B target (test code = [place] 20816-4) not detected in this specimen. RSV by RT-PCR (test Negative Negative The RSV target code = 09129-7) nucleic acid s are not detected in this specimen. ALRRY (test code = The presence of LARRY) [...] the Act. Fact Sheet for Healthcare Providers:https://w ww.[employer]/Docu ments/Xpert%20Xpres s%20SARS%20CoV-2/Fa ct%20Sheets/302-390 2%09PTHJ-BZO-1%20HE ALTHCARE%20PROVIDER S%20FACT%20SHEET.pd f Fact Sheet for Healthcare Patients:https://ww w.[employer]/Docum ents/Xpert%20Xpress %20SARS%20Cov-2/Fac t%20Sheets/302-3801 %93QNOI-JWN-6%20PAT IENT%20FACT%20SHEET .pdf Lab Interpretation Abnormal (test code = 43730-4) [facility]OV[facility]/INFLUENZA/RSV [id number] 05:53:01 Test Item Value Reference Range Interpretation Comments SARS-COV2/RT-PCR Negative Negative The SARS-Co V-2 target (test code = nucleic acids a re not 5463180) detected in thi s specimen. Negat alexys [...] individuals adrian pected of COVID-19 by the [facility] ide. INFLUENZA A RT-PCR Positive Negative AA The Flu A target nucleic (test code = acids are detec james in 19100918) this specimen. INFLUENZA B RT-PCR Negative Negative The Flu B target nucleic (test code = acids are not d etected in 19100919) this specimen. RSV RT-PCR (test Negative Negative The RSV tar get nucleic code = 1532630) acids are no t detected in this [...] Xpress SARS-CoV-2/Flu/RSV by their healthcareprovider. Results from [facility] Xpert Xpress SARS-CoV-2/Flu/RSV test [...] of the Act.Fact Sheet for Healthcare Providers:https ://www.[employer] Internet/Documents/Xpert%20Xpress%20SARS%20CoV-2/Fact%20Sheets/302-390 2%37ICPQ-FXM-4%20HEALTHCARE%20PROVIDERS%20FACT%20SHEET.pdfFact Sheet for Healthcare Patients:https://www.[employer] Internet/Docum ents/Xpert%20Xpress%20SARS%20Cov-2/Fact%20Sheets/302-3801%12DYZC-QNQ-3%20PATIENT %20FACT%20SHEET.pdfPOCT-GLUCOSE [id number] 05:47:16 Test Item Value Reference Range Interpretation Comments POC-GLUCOSE METER 199 mg/dL 70-110 H : TESTED A Michael [facility] 67[address] (MARILYNN) (test code = NATALIE Gayle [place], 1538) [address]: Office Services Specialist/Techni yessi ID = [id number] for Elissa Lewis [id number] 05:44:41 Test Item Value Reference Range Interpretation Comments MAGNESIUM (BEAKER) (test code = 1.5 mg/dL 1.6-2.6 L 627) Office Services Specialist ID Gabrielle GUERRA [id number] 05:44:41 Test Item Value Reference Range Interpretation Comments PHOSPHORUS (BEAKER) (test code = 1.7 mg/dL 2.3-4.7 L 604) Office Services Specialist ID - CHARLIE GLACTIC ACID, [id number] 05:40:57 Test Item Value Reference Range Interpretation Comments LACTATE BLOOD VENOUS (2) (BEAKER) 0.86 mmol/L 0.50-2.20 (test code = 2872) Office Services Specialist ID - CHARLIE GCBC W/PLT COUNT & AUTO [id number] 05:35:44 Test Item Value Reference Range Interpretation [...] (test code = 2801) HIGH SENSITIVITY TROPONIN [id number] 05:26:53 Test Item Value Reference Range Interpretation Comments HIGH SENSITIVITY < pg/ml See_Comment [Automated message] TROPONIN I (test code = The system which [id number]) generated this result transmitted ref erence range: <=17. Th e reference range was not used to interpr et this result as normal/abnormal . Office Services Specialist ID - CHARLIE GThe INDEPENDENT LIVING INSTRUCTOR STAT High Sensitivity Troponin-I results should be used in conjunction with other diagnostic information such as ECG, clinical observations and information, and patient symptoms to aid in the diagnosis of [place].BLOOD GAS, [id number] 05:11:35 Test Item Value Reference Range Interpretation [...] (BEAKER) (test code = 1819) 21.0 POCT-GLUCOSE [id number] 04:35:37 Test Item Value Reference Range Interpretation Comments POC-GLUCOSE METER 195 mg/dL 70-110 H : TESTED A T [facility] 6720 (BEAKER) (test code = [facility] Nalini [facility] [place], 1538) [address]: Office Services Specialist/Techni yessi ID = [id number] for FELICE RICHMOND POCT-GLUCOSE [id number] 03:28:15 Test Item Value Reference Range Interpretation Comments POC-GLUCOSE METER 201 mg/dL 70-110 H : TESTED A T [facility] 6720 (BEAKER) (test code = [facility] [place], 1538) [address]: Office Services Specialist/Techni yessi ID = [id number] for Ez enwugo, Homa POCT-GLUCOSE [id number] 01:43:58 Test Item Value Reference Range Interpretation Comments POC-GLUCOSE METER 184 mg/dL 70-110 H : TESTED A T [facility] 6720 ([facility]) (test code = [facility] [place], 1538) [address]: Office Services Specialist/Techni yessi ID = [id number] for Nm Cindy portillo Notes Date/Time Note Provider Source 2023-03-17 Formatting of this note might be differe nt from the original. Omar Martinez RN [facility] 19:44:43-00:00 Pt given printed and verbal discharge instructions regarding cellulitis of right lower leg, encouraged hydration. Prescriptions provided Discussed antibiotic therapy and to take until all completed unless adverse reaction occurs - if occurs, discontinue medication and follow up with pcp/seek medical attention Pt verbalized understanding of instructions, pt awake alert oriented, resp reg unlabored, skin w/d, color appropriate for race, moves all ext well,pt encouraged to follow up with pcp. Advised to seek medical attention for new/prolon ged/worsening of symptoms. No adverse reaction to meds given in ER noted up on discharge. PIV d'cd, dressing to site, catheter in tact. Awake, alert oriented, resp reg unlabored, skin w/d, in no apparent distress. 2023-03-17 Formatting of this note might be differe nt from the original. Daylin Lee RN [facility] 16:12:05-00:00 Pt arrived ambulatory with kavitha wilkesjose c katt for redness and swelling to RLE. Pt had a fx and sx to R leg a few month ago and states this redness and swelling will come and go and Dr. Boyds office was n't concerned about it when she saw them a few weeks ago. Pt has the redness outlined which was done at physical therapy today. 2023-03-16 Formatting of this note might be differe nt from the original. Jose Guaman [facility] 13:51:27-00:00 Pt is calling needing to rosalba petty if Dr. Boyd had responded to her message. Pt waanted to speak to Otto English. I passed the call to Lashaun. Please advise Electronically signed by Jose Guaman at 09/2022 1:52 PM CDT 2023-03-14 [facility] 09:44:28-00:00 Called and spoke to patient about taking her Humalog insulin more regularly. Informed patient that her A1C has been high and that she needs to take insulin lispro with every meal. Reports taking Tresiba every night. She reports th at she only takes 14 units of insulin lispro when her sugar is high. She reports her diabetes is uncontrolled and I said it is because she is not taking her insulin consistently. I suggested decreased the am ount of diet soda's she takes daily. She reports drinking 2-3 sodas daily and reports that she needs her caffeine. I suggested cutting back on the soda and maybe drinking uns weetened tea or coffee for h er caffeine needs. She said she is not going to stop drinking soda and proceeded to tell me the telephone conversation was over. Patient hung up on me.
--- NOTE | 2023-04-04 15:35 | EDPHYS ---
Physician Documentation [facility] Name: Cristina Wheeler Age: 32 yrs Sex: Female : 1990 Arrival Date: 04/04/2023 Time: 14:29 Bed IW7 Private MD: ED Physician Sarah Hutchins Historical: - Allergies: 04/04 15:06 PENICILLINS; ll1 15:06 Spinach; ll1 15:06 Sulfa (Sulfonamide Antibiotics); ll1 15:06 flu medication; ll1 - PMHx: 15:06 Arthritis; Diabetes - IDDM; neuropathy; ll1 - PSHx: 15:06 R Knee SX; ll1 - Immunization history:: Adult Immunizations up to date. - Social history:: Smoking status: Patient denies any tobacco usage or history of. Vital Signs: 15:02 BP 123 / 79; Pulse 113; Resp 17; Temp 97.8; Pulse Ox 100% on R/A; Pain 0/10; ll1 16:05 BP 114 / 72; Pulse 111; Resp 17; Temp 98(O); Pulse Ox 100% ; jl7 15:02 Pain Scale: Adult ll1 MDM: 15:12 Patient medically screened. cp3 Administered Medications: No medications were administered Disposition Summary: 04/04/23 15:34 Discharge Ordered Location: Home cp3 Condition: Stable cp3 Diagnosis - Cellulitis of right lower limb cp3 Followup: cp3 - With: Truong Dickson MD - When: - Reason: Recheck today's complaints Discharge Instructions: - Discharge Summary Sheet cp3 Forms: - Medication Reconciliation Form cp3 - Thank You Letter cp3 - Antibiotic Education cp3 - Prescription Opioid Use cp3 - Patient Portal Instructions cp3 - Leadership Thank You Letter cp3 Prescriptions: - Clindamycin HCl 300 mg Oral Capsule - take 1 capsule by ORAL route every 6 hours for 10 days; 40 capsule; Refills: 0, cp3 Product Selection Permitted - Doxycycline Hyclate 100 mg Oral Tablet - take 1 tablet by ORAL route every 12 hours; 20 tablet; Refills: 0, Product cp3 Selection Permitted - Nystatin-Triamcinolone 100,000-0.1 unit/g-% Topical Cream - apply 1 application by TOPICAL route 2 times per day; 1 gram; Refills: 0, cp3 Product Selection Permitted Signatures: Sarah Hutchins MD MD cp3 Raymond Monteiro, YOAN RN ll1
--- NOTE | 2023-04-04 15:35 | ER ---
Nurse's Notes [facility] Name: Cristina Wheeler Age: 32 yrs Sex: Female : 1990 Arrival Date: 04/04/2023 Time: 14:29 Bed IW7 Private MD: Diagnosis: Cellulitis of right lower limb Presentation: 04/04 15:02 Chief complaint: Patient states: RLE redness for 1 month. Has been seen twice for this. ll1 Site is getting better per patient, PT wanted her to get it checked again. No fever. Edges of redness have peeling skin around site. Coronavirus screen: Vaccine status: Patient reports being unvaccinated. Client denies travel out of the [place] in the last 14 days. At this time, the client does not indicate any symptoms associated with coronavirus-19. Ebola Screen: Patient denies travel to an Ebola-affected area in the 21 days before illness onset. Initial Sepsis Screen: Does the patient meet any 2 criteria? No. Patient's initial sepsis screen is negative. Does the patient have a suspected source of infection? Yes: Skin breakdown/wound. Risk Assessment: Do you want to hurt yourself or someone else? Patient reports no desire to harm self or others. Onset of symptoms was March 04, 2023. 15:02 Method Of Arrival: Ambulatory ll1 15:02 Acuity: KM 4 ll1 Historical: - Allergies: 15:06 PENICILLINS; ll1 15:06 Spinach; ll1 15:06 Sulfa (Sulfonamide Antibiotics); ll1 15:06 flu medication; ll1 - PMHx: 15:06 Arthritis; Diabetes - IDDM; neuropathy; ll1 - PSHx: 15:06 R Knee SX; ll1 - Immunization history:: Adult Immunizations up to date. - Social history:: Smoking status: Patient denies any tobacco usage or history of. Vital Signs: 15:02 BP 123 / 79; Pulse 113; Resp 17; Temp 97.8; Pulse Ox 100% on R/A; Pain 0/10; ll1 16:05 BP 114 / 72; Pulse 111; Resp 17; Temp 98(O); Pulse Ox 100% ; jl7 15:02 Pain Scale: Adult ll1 ED Course: 14:32 Patient arrived in ED. im 14:43 Sarah Hutchins MD is Attending Physician. cp3 15:06 Triage completed. ll1 15:06 Arm band placed on. ll1 15:33 Truong Dickson MD is Referral Physician. cp3 Administered Medications: No medications were administered Outcome: 15:34 Discharge ordered by MD. cp3 16:06 Patient left the ED. jl7 Signatures: Sarah Hutchins MD MD cp3 David Frank RN RN jl7 Raymond Monteiro RN RN ll1 Kierra Sinclair im Corrections: (The following items were deleted from the chart) 15:07 15:02 Acuity: KM 3 ll1 ll1
[2023-04-04 16:12] VITALS: O2SAT 100
[2023-04-04 16:13] VITALS: BP 114/72; TEMP 98
== END 2023-04-04 16:06 | disposition home or self-care (01) ==
LOC: ER 14:29
DX: L03.115 Cellulitis of right lower limb (principal); Z88.0 Allergy status to penicillin; Z88.2 Allergy status to sulfonamides; Z88.5 Allergy status to narcotic agent; Z88.8 Allergy status to other drugs, medicaments and biological substances; Z91.018 Allergy to other foods
CPT/HCPCS: 99281

== ENCOUNTER 2023-06-17 07:25 | Inpatient (IN) | payer OTHER ==
--- OUTSIDE RECORDS SUMMARY | 2023-06-17 07:39 | XMS REPORT | Continuity of Care Document ---
:1990 Author Organization [facility] t Address [address] [place] [address] Care Team Providers Name Role Phone Provider, Unknown Primary Care Physician Unavailable AVIS VANEGAS Attending Clinician Unavailable Elizabeth Peñaloza RPH Attending Clinician Unavailable KM BROCK Attending Clinician Unavailable Nurse, [facility] Attending Clinician Unavailable Dunia Rodriguez MD Attending Clinician DUNIA RODRIGUEZ Attending Clinician Unavailable Km Sharif Attending Clinician Nwajei AGPCNP, Avis Attending Clinician LUDY BOYD Attending Clinician Unavailable Lab, Ang - Db Attending Clinician Unavailable Ludy Boyd MD Attending Clinician Doctor Unassigned, [place] Attending Clinician Unavailable Mnina WALTER Attending Clinician Unavailable Minna Colvin Attending Clinician Neymar Reeder Attending Clinician Unavailable Amy MILTON, Cynthia Avila Attending Clinician GARRETT BULLARD Attending Clinician Unavailable Ling Camarillo DO Attending Clinician Rodolfo Sparrow DO Attending Clinician Neymar Dickinson MD Attending Clinician Yulia Gonzalez MD Attending Clinician Betito MILLER, Mayo Thomas Attending Clinician [phone] Noman Almodovar MD Attending Clinician Shaylee MILLER, Poppy Attending Clinician POPPY MANZO Attending Clinician Unavailable NEYMAR DICKINSON Attending Clinician Unavailable Jeffry Fuchs Attending Clinician Unavailable Linda Yu Attending Clinician Unavailable Minna WALTER Admitting Clinician Unavailable Physician, No Primary or Family Admitting Clinician Unavailkiki ble LUDY BOYD Admitting Clinician Unavailable Ludy Boyd MD Admitting Clinician RODOLFO SPARROW Admitting Clinician Unavailable Rodolfo Sparrow DO Admitting Clinician YULIA GONZALEZ Admitting Clinician Unavailable Payers Payer Name Policy Type Policy Number Effective Date Expiration Date S conrado [facility] [id number] 2019 PLUS 00:00:00 [place]ICAID OF [place] [id number] 2019 00:00:00 Problems Condition Condition Condition Status Onset Resolution Last Treating Co mments Source Name Details Category Date Date Treatment Clinician Date Neuropathy Neuropathy Disease Active 2022-08 U nivers associated associated 0-13 it y of with with 00:00: [place] endocrine endocrine 00 Medi cierra disorder disorder Branch DKA, type DKA, type Disease Active Uni vers 1, not at 1, not at 5-02 ity of goal goal 00:00: [place] Medical Branch DKA DKA Disease Recurre 2021-[address] [facility] (diabetic (diabetic nce 1-21 Luke s ketoacidos ketoacidos 00:00: Me dical is) is) 00 Center Asthma Asthma Disease Active 2020-08 Overview: [facility] s 2-06 Formattin ity of 00:00: g of this [place] 00 note Medical might be Branch different from the original. Last Assessmen t & Plan: Formattin g of this note might be different from the original. Stable.Montez aguilar currently vapes. She states she is trying to cut back.Ment ions that she no longer smokes marijuana or smoke cigarette s. 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 Allergies, Adverse Reactions, Alerts Allergy Allergy Status Severity Reaction(s) Onset Inactive Treating Comm ents Source Name Type Date Date Clinician Penicill DA Active [facility] ins 01-14 Anthony 00:[facility]: [facility] 00 are [place] Sulfa DA Active [facility] (Sulfona 01-14 Anthony mide 00:00: [facility] Antibiot 00 are ics) [place] FLU DRUG Active Other-Cmnt Univer s VACCINE 12-17 ity of 2011-07( 00:00: [place] 3 Medical YR+)(PF) Branch OSELTAMI DRUG Active Other-Cmnt Univ ers VIR INGREDI 12-17 ity of 00:00: 00 Medical Branch Oseltami Propensi Active Other - See Pt state s Univers vir ty to comments 12-17 it makes ity of adverse 00:00: her go [place] reaction into DKA Medica l s Branch SPINACH [...] ANTIBIOT 00 Center ICS) Penicill Propensi Active 2021- [facility] [...] Drug Active High Rash Univers (SULFONA Class 04-15 ity of MIDE 00:00: [place] ANTIBIOT 00 Medical ICS) Branch Penicill DA Active [facility] 03-21 [facility] Sulfa DA Active [facility] (Sulfona 03-21 [place] mide 00:00: d Antibiot 00 Medical ics) Center ibuprofe DA Active [facility] n 03-21 [facility] 00:[facility]: d [facility] Center sulfamet DA Active SV [facility] hoxazole 03-21 [facility] 00:[facility]: d [facility] Center trimetho DA Active [facility] prim 03-21 [facility] 00:00: d 00 [facility] Center penicill DA Active U 0 [facility] in G 03-21 [facility] 00:00: d 00 Medical Center shellfis DA Active [facility] h 03-21 [facility] derived 00:00: d 00 Medical Center spinach DA Active MO 0 [facility] 03-21 [place] 00:00: d 00 Medical [...] Social Unive rsity of Connections Phone [place] edical Branch History SDOH Social Unive rsity of Connections Get [place] Med ical Together Branch History SDOH Social Unive rsity of Connections [facility] Medical Branch History SDOH Social Unive rsity of Connections [place] [facility] Membership Branch History SDOH Social Unive rsity of Connections [place] [facility] Meetings Branch Gender identity Universit y of [place] [facility] Sexual orientation Method [facility] Tobacco use and 2023-03-02 2023-03-02 User of smokeless Un iversity of exposure 00:00:00 00:00:00 tobacco [place] [facility] Tobacco Comment 2023-03-02 2023-03-02 Vape pen Universit y of 00:00:00 00:00:00 [place] [facility] Exposure to 2022-12-24 2023-01-03 Not sure University of SARS-CoV-2 (event) 00:00:00 15:02:00 [place] [facility] History SDOH 2022-12-15 2022-12-15 1 University o f Alcohol Frequency 00:00:00 00:00:00 [place] M edical Branch History SDOH Social 2022-12-15 2022-12-15 3 Unive rsity of Connections Living 00:00:00 00:00:00 [place] [facility] History SDOH 2022-12-15 2022-12-15 0 University o f Physical Activity 00:00:00 00:00:00 [place] M edical DPW Branch History SDOH 2022-12-15 2022-12-15 0 University o f Physical Activity 00:00:00 00:00:00 [place] M edical MPS Branch History SDOH 2022-12-15 2022-12-15 5 University o f Financial 00:00:00 00:00:00 [place] [facility] History SDOH Food 2022-12-15 2022-12-15 1 Univers ity of Worry 00:00:00 00:00:00 [place] [facility] History SDOH Food 2022-12-15 2022-12-15 1 Univers ity of Scarcity 00:00:00 00:00:00 [place] [facility] History SDOH 2022-12-15 2022-12-15 2 University o f Transport Med 00:00:00 00:00:00 [place] Medic al Branch History SDOH 2022-12-15 2022-12-15 2 University o f Transport Non-Med 00:00:00 00:00:00 [place] M edical Branch History SDOH 2022-12-152022-12-15 2 University o f Housing Unable to 00:00:00 00:00:00 [place] M edical Pay Branch History SDOH 2022-12-15 2022-12-15 1 University o f Housing Places 00:00:00 00:00:00 [place] Medi cierra Lived Branch History SDOH 2022-12-15 2022-12-15 2 University o f Housing Homeless 00:00:00 00:00:00 [place] Me dical Last Year Branch History of Social 2018-07-20 2018-07-[address] function 00:00:00 00:00:00 Hospital Alcohol intake 2017-11-15 2017-11-15 Current drinker [facility] 00:00:00 00:00:00 of alcohol Hospital (finding) Alcohol Comment 2017-11-15 2017-11-15 occasional Jew 00:00:00 00:00:00 Hospital Sex Ass[birth year] At [birth year] MELISSA Eckert kes 00:00:00 00:00:00 Medical Center Smoking Status Start Date Stop Date Source Ex-smoker 2023-03-02 00:00:00 2023-03-02 00:00:00 Universi ty [facility] Never smoked tobacco [facility] Medications Ordered Filled Start Stop Current Ordering Indication Dosage Frequency Signature Comments Components Source Medication Medication Date Date Medication? Clinician (SIG) Name Name medroxyPROG 2022-08- No [id number] 150mg Univers ESTERone 0-17 10-17 ity of (DEPO-PROVE 22:30: 19:22 [place] RA) syringe 00 :00 Medical 150 mg [place] medroxyPROG 2022-08- No [id number] 150mg 150 mg, Univers ESTERone 0-17 10-17 Intramuscu ity of (DEPO-PROVE 22:30: 19:22 lar, ONCE, [place] RA) syringe 00 :00 1 dose, On Me dical 150 mg e [place] 05/31/23 at 1730, Routine insulin 2022-08 Yes [id number] 4U inject 4 U nivers lispro-aabc 0-13 Units ity of 100 unit/mL 00:00: under the [place] In[place]n 00 skin in Medical the Branch morning and 4 Units at noon and 4 Units in the evening. inject with meals. insulin 2022-08 Yes [id number] 4U inject 4 U nivers lispro-aabc 0-13 Units ity of 100 unit/mL 00:00: [place] the [place] In[place] 00 skin in [facility] morning and 4 Units at noon and 4 Units in the evening. inject with meals. insulin 2022-08 Yes [id number] 4U inject 4 U nivers lispro-aabc 0-13 Units ity of 100 unit/mL 00:00: under the [place] In[place] 00 skin in [facility] morning and 4 Units at noon and 4 Units in the evening. inject with meals. insulin 2022-08 Yes [id number] 4U inject 4 U nivers lispro-aabc 0-13 Units ity of 100 unit/mL 00:00: under [place] In[place] 00 skin in [facility] morning and 4 Units at noon and 4 Units in the evening. inject with meals. insulin 2022-08 Yes [id number] 4U inject 4 U nivers lispro-aabc 0-13 Units ity of 100 unit/mL 00:00: under the [place] In[place] 00 skin in [facility] morning and 4 Units at noon and 4 Units in the evening. inject with meals. insulin 2022-08 Yes [id number] 4U inject 4 U nivers lispro-aabc 0-13 Units ity of 100 unit/mL 00:00: under [place] In[place] 00 skin in [facility] morning and 4 Units at noon and 4 Units in the evening. inject with meals. clindamycin 2022-08- Yes [id number] 300mg Take 2 Univers 150 mg 0-13 10-24 capsules ity of capsule 00:00: 04:59 by mouth 4 [place] 00 :00 (four) [facility] daily for 10 days. clindamycin 2022-08- Yes [id number] 300mg Take 2 Univers 150 mg 0-13 10-24 capsules ity of capsule 00:00: 04:59 by mouth 4 [place] 00 :00 (four) [facility] daily for 10 days. clindamycin 2022-08- Yes [id number] 300mg Take 2 Univers 150 mg 0-13 10-24 capsules ity of capsule 00:00: 04:59 by mouth 4 [place] 00 :00 (four) Medical times Branch daily for 10 days. clindamycin 2022-08- Yes [id number] 300mg Take 2 Univers 150 mg 0-13 10-24 capsules ity of capsule 00:00: 04:59 by mouth 4 [place] 00 :00 (four) Medical times Branch daily for 10 days. clindamycin 2022-08- Yes [id number] 300mg Take 2 Univers 150 mg 0-13 10-24 capsules ity of capsule 00:00: 04:59 by mouth 4 [place] 00 :00 (four) Medical times Branch daily for 10 days. clindamycin 2022-08- Yes [id number] 300mg Take 2 Univers 150 mg 0-13 10-24 capsules ity of capsule 00:00: 04:59 by mouth 4 [place] 00 :00 ([facility]) Medical times [place] daily for 10 days. clindamycin 2022-08- Yes [id number] 300mg Take 2 Univers 150 mg 0-13 10-24 capsules ity of capsule 00:00: 04:59 by mouth 4 [place] 00 :00 ([facility]) Medical times [place] daily for 10 days. cephALEXin 2022- No 500mg 500 mg, Un jessika (KEFLEX) 03-17 Oral, ity of capsule 500 23:00: 22:03 ONCE, 1 [place] mg 00 :00 dose, On [facility] 03/17/23 Branch at 1800, [place]
Re ason for Anti-Infec tive: Documented Infection< br>Documen james Infection Site: Skin / Soft Tissue
Duration of Therapy: 10 days ibuprofen 2022- No 400mg 400 mg, Uni vers (IBU) 03-17 Oral, ity of tablet 400 22:00: 22:03 ONCE, 1 [place] mg 00 :00 dose, On [facility] 03/17/23 Branch at 1700, [place] cephALEXin 2022- No [id number] 500mg Take 1 Univers (KEFLEX) 03-17 [id number] capsule by it y of 500 mg 00:00: 04:59 mouth in [place] capsule 00 :00 the Medical morning Branch and 1 capsule at noon and 1 capsule in the evening. Do all this for 10 days. cephALEXin 0 2022- No [id number] 500mg Take 1 Univers (KEFLEX) 03-17 [id number] capsule by it y of 500 mg 00:00: 04:59 mouth in [place] capsule 00 :00 the Medical morning Branch and 1 capsule at noon and 1 capsule in the evening. Do all this for 10 days. cephALEXin 202-0 2022- No [id number] 500mg Take 1 Univers (KEFLEX) 03-17 [id number] capsule by it y of 500 mg 00:00: 04:59 mouth in [place] capsule 00 :00 the Medical morning Branch and 1 capsule at noon and 1 capsule in the evening. Do all this for 10 days. medroxyPROG 2022-0 2022- No [id number] 150mg Univers ESTERone 03-08 ity of (DEPO-PROVE 22:00: 21:12 [facility]) syringe 00 :00 Medical 150 mg Branch medroxyPROG 2022-0 2022- No [id number] 150mg 150 mg, Univers ESTERone 03-08 Intramuscu ity of (DEPO-PROVE 22:00: 21:12 lar, ONCE, [facility]) syringe 00 :00 1 dose, On Me dical 150 mg [facility] 03/08/23 at 1700, Routine melatonin 5 2022-3- No 5mg Take 5 mg Univers mg Chew 02-22 by mouth. ity of 11:49: 00:00 [place] 37 :00 [facility] melatonin 5 2022-0 2022- No 5mg Take 5 mg Univers mg Chew 02-22 by mouth. ity of 11:49: 00:00 [place] 37 :00 [facility] Branch melatonin 5 2022-0 3- No 5mg Take 5 mg Univers mg Chew 02-22 by mouth. ity of 11:49: 00:00 [place] 37 :00 [facility] melatonin 5 2022-0 2023- No 5mg Take 5 mg Univers mg Chew 02-22 by mouth. ity of 11:49: 00:00 [place] 37 :00 [facility] Branch methocarbam 2023-0 Yes 500mg Take 1 Uni [...] ity o f tablet 11:47: mouth 4 [place] 30 (four) Medical times Branch daily. methocarbam 2023-0 Yes 500mg Take 1 Uni vers oL 500 mg 7-11 tablet by ity o f tablet 11:47: mouth 4 [place] 30 (four) Medical times Branch daily. methocarbam 2023-0 Yes 500mg Take 1 Uni vers oL 500 mg 7-11 tablet by ity o f tablet 11:47: mouth 4 [place] 30 (four) Medical times Branch daily. methocarbam 2023-0 Yes 500mg Take 1 Uni vers oL 500 mg 7-11 tablet by ity o f tablet 11:47: mouth 4 [place] 30 (four) Medical times Branch daily. methocarbam 2023-0 Yes 500mg Take 1 Uni vers oL 500 mg 7-11 tablet by ity o f tablet 11:47: mouth 4 [place] 30 (four) Medical times Branch daily. methocarbam 2023-0 Yes 500mg Take 1 Uni vers oL 500 mg 7-11 tablet by ity o f tablet 11:47: mouth 4 [place] 30 (four) Medical times Branch daily. gabapentin 2023-0 Yes [id number] 800mg Take 1 Univers 800 mg 7-11 tablet by ity of tablet 00:00: mouth in [place] [address] the Medical morning Branch and 1 tablet at noon and 1 tablet in the evening. melatonin 5 2023-0 Yes 2.5mg Take 2.5 U nivers mg Chew 7-11 mg by ity of 00:00: mouth. [place] [address] Medical Branch gabapentin 2023-0 Yes [id number] 800mg Take 1 Univers 800 mg 7-11 tablet by ity of tablet 00:00: mouth in [place] [address] the Medical morning Branch and 1 tablet at noon and 1 tablet in the evening. melatonin 5 2023-0 Yes 2.5mg Take 2.5 U nivers mg Chew 7-11 mg by ity of 00:00: mouth. [address] Branch gabapentin 2023-0 Yes [id number] 800mg Take 1 Univers 800 mg 7-11 tablet by ity of tablet 00:00: mouth in [address] morning [place] and 1 tablet at noon and 1 tablet in the evening. melatonin 5 2022-0 Yes 2.5mg Take 2.5 U nivers mg Chew 7-11 mg by ity of 00:00: mouth. [address] Branch gabapentin 2023-0 Yes [id number] 800mg Take 1 Univers 800 mg 7-11 tablet by ity of tablet 00:00: mouth in [address] and 1 tablet at noon and 1 tablet in the evening. melatonin 5 2022-0 Yes 2.5mg Take 2.5 U nivers mg Chew 7-11 mg by ity of 00:00: mouth. [address] gabapentin 2023-0 Yes [id number] 800mg Take 1 Univers 800 mg 7-11 tablet by ity of tablet 00:00: mouth in [address] and 1 tablet at noon and 1 tablet in the evening. melatonin 5 2022-0 Yes 2.5mg Take 2.5 U nivers mg Chew 7-11 mg by ity of 00:00: mouth. [address] gabapentin 2023-0 Yes [id number] 800mg Take 1 Univers 800 mg 7-11 tablet by ity of tablet 00:00: mouth in [address] and 1 tablet at noon and 1 tablet in the evening. melatonin 5 2022-0 Yes 2.5mg Take 2.5 U nivers mg Chew 7-11 mg by ity of 00:00: mouth. [address] gabapentin 2023-0 Yes [id number] 800mg Take 1 Univers 800 mg 7-11 tablet by ity of tablet 00:00: mouth in [address] morning [place] and 1 tablet at noon and 1 tablet in the evening. melatonin 5 2022-0 Yes 2.5mg Take 2.5 U nivers mg Chew 7-11 mg by ity of 00:00: mouth. [address] gabapentin 2023-0 Yes [id number] 800mg Take 1 Univers 800 mg 7-11 tablet by ity of tablet 00:00: mouth in [address] and 1 tablet at noon and 1 tablet in the evening. melatonin 5 2022-0 Yes 2.5mg Take 2.5 U nivers mg Chew 7-11 mg by ity of 00:00: mouth. [place] [address] Medical Branch gabapentin 2023-0 Yes [id number] 800mg Take 1 Univers 800 mg 7-11 tablet by ity of tablet 00:00: mouth in [address] morning [place] and 1 tablet at noon and 1 tablet in the evening. melatonin 5 2022-0 Yes 2.5mg Take 2.5 U nivers mg Chew 7-11 mg by ity of 00:00: mouth. [place] [address] Medical Branch gabapentin 2023-0 Yes [id number] 800mg Take 1 Univers 800 mg 7-11 tablet by ity of tablet 00:00: mouth in [address] morning [place] and 1 tablet at noon and 1 tablet in the evening. melatonin 5 2022-0 Yes 2.5mg Take 2.5 U nivers mg Chew 7-11 mg by ity of 00:00: mouth. [address] Branch gabapentin 2023-0 Yes [id number] 800mg Take 1 Univers 800 mg 7-11 tablet by ity of tablet 00:00: mouth in [address] and 1 tablet at noon and 1 tablet in the evening. melatonin 5 2022-0 Yes 2.5mg Take 2.5 U nivers mg Chew 7-11 mg by ity of 00:00: mouth. [address] Branch gabapentin 2023-0 Yes [id number] 800mg Take 1 Univers 800 mg 7-11 tablet by ity of tablet 00:00: mouth in [address] and 1 tablet at noon and 1 tablet in the evening. melatonin 5 2022-0 Yes 2.5mg Take 2.5 U nivers mg Chew 7-11 mg by ity of 00:00: mouth. [place] [address] Medical Branch gabapentin 2023-0 Yes [id number] 800mg Take 1 Univers 800 mg 7-11 tablet by ity of tablet 00:00: mouth in [address] morning [place] and 1 tablet at noon and 1 tablet in the evening. melatonin 5 2022-0 Yes 2.5mg Take 2.5 U nivers mg Chew 7-11 mg by ity of 00:00: mouth. [place] [address] Medical Branch gabapentin 2023-0 Yes [id number] 800mg Take 1 Univers 800 mg 7-11 tablet by ity of tablet 00:00: mouth in [address] Medical morning Branch and 1 tablet at noon and 1 tablet in the evening. melatonin 5 2022-0 Yes 2.5mg Take 2.5 U nivers mg Chew 7-11 mg by ity of 00:00: mouth. [address] Branch gabapentin 2023-0 Yes [id number] 800mg Take 1 Univers 800 mg 7-11 tablet by ity of tablet 00:00: mouth in [place] [address] the [facility] morning [place] and 1 tablet at noon and 1 tablet in the evening. melatonin 5 2022-0 Yes 2.5mg Take 2.5 U nivers mg Chew 7-11 mg by ity of 00:00: mouth. [address] Branch gabapentin 2023-0 Yes [id number] 800mg Take 1 Univers 800 mg 7-11 tablet by ity of tablet 00:00: mouth in [address] morning [place] and 1 tablet at noon and 1 tablet in the evening. melatonin 5 2022-0 Yes 2.5mg Take 2.5 U nivers mg Chew 7-11 mg by ity of 00:00: mouth. [address] Branch gabapentin 2023-0 Yes [id number] 800mg Take 1 Univers 800 mg 7-11 tablet by ity of tablet 00:00: mouth in [address] morning [place] and 1 tablet at noon and 1 tablet in the evening. melatonin 5 2022-0 Yes 2.5mg Take 2.5 U nivers mg Chew 7-11 mg by ity of 00:00: mouth. [address] gabapentin 2023-0 Yes [id number] 800mg Take 1 Univers 800 mg 7-11 tablet by ity of tablet 00:00: mouth in [address] morning [place] and 1 tablet at noon and 1 tablet in the evening. melatonin 5 2022-0 Yes 2.5mg Take 2.5 U nivers mg Chew 7-11 mg by ity of 00:00: mouth. [address] Branch gabapentin 2023-0 Yes [id number] 800mg Take 1 Univers 800 mg 7-11 tablet by ity of tablet 00:00: mouth in [address] morning [place] and 1 tablet at noon and 1 tablet in the evening. melatonin 5 2022-0 Yes 2.5mg Take 2.5 U nivers mg Chew 7-11 mg by ity of 00:00: mouth. [place] 00 Medical Branch gabapentin 2023-0 Yes [id number] 800mg Take 1 Univers 800 mg 7-11 tablet by ity of tablet 00:00: mouth in [place] [address] the [facility] morning [place] and 1 tablet at noon and 1 tablet in the evening. melatonin 5 2022-0 Yes 2.5mg Take 2.5 U nivers mg Chew 7-11 mg by ity of 00:00: mouth. [place] [address] Medical Branch gabapentin 2023-0 Yes [id number] 800mg Take 1 Univers 800 mg 7-11 tablet by ity of tablet 00:00: mouth in [address] morning [place] and 1 tablet at noon and 1 tablet in the evening. melatonin 5 2022-0 Yes 2.5mg Take 2.5 U nivers mg Chew 7-11 mg by ity of 00:00: mouth. [address] Branch gabapentin 2023-0 Yes [id number] 800mg Take 1 Univers 800 mg 7-11 tablet by ity of tablet 00:00: mouth in [address] morning [place] and 1 tablet at noon and 1 tablet in the evening. melatonin 5 2022-0 Yes 2.5mg Take 2.5 U nivers mg Chew 7-11 mg by ity of 00:00: mouth. [address] Branch gabapentin 2023-0 Yes [id number] 800mg Take 1 Univers 800 mg 7-11 tablet by ity of tablet 00:00: mouth in [address] morning [place] and 1 tablet at noon and 1 tablet in the evening. melatonin 5 2022-0 Yes 2.5mg Take 2.5 U nivers mg Chew 7-11 mg by ity of 00:00: mouth. [place] [address] Medical Branch gabapentin 2023-0 Yes [id number] 800mg Take 1 Univers 800 mg 7-11 tablet by ity of tablet 00:00: mouth in [address] morning [place] and 1 tablet at noon and 1 tablet in the evening. melatonin 5 2022-0 Yes 2.5mg Take 2.5 U nivers mg Chew 7-11 mg by ity of 00:00: mouth. [address] Branch gabapentin 2023-0 Yes [id number] 800mg Take 1 Univers 800 mg 7-11 tablet by ity of tablet 00:00: mouth in [address] morning [place] and 1 tablet at noon and 1 tablet in the evening. melatonin 5 2022-0 Yes 2.5mg Take 2.5 U nivers mg Chew 7-11 mg by ity of 00:00: mouth. [place] [address] Medical Branch gabapentin 2023-0 Yes [id number] 800mg Take 1 Univers 800 mg 7-11 tablet by ity of tablet 00:00: mouth in [address] morning [place] and 1 tablet at noon and 1 tablet in the evening. melatonin 5 2022-0 Yes 2.5mg Take 2.5 U nivers mg Chew 7-11 mg by ity of 00:00: mouth. [address] Branch gabapentin 2023-0 Yes [id number] 800mg Take 1 Univers 800 mg 7-11 tablet by ity of tablet 00:00: mouth in [address] morning [place] and 1 tablet at noon and 1 tablet in the evening. melatonin 5 2022-0 Yes 2.5mg Take 2.5 U nivers mg Chew 7-11 mg by ity of 00:00: mouth. [address] gabapentin 3-0 Yes [id number] 800mg Take 1 Univers 800 mg 7-11 tablet by ity of tablet 00:00: mouth in [address] and 1 tablet at noon and 1 tablet in the evening. melatonin 5 2022-0 Yes 2.5mg Take 2.5 U nivers mg Chew 7-11 mg by ity of 00:00: mouth. [address] gabapentin 3-0 Yes [id number] 800mg Take 1 Univers 800 mg 7-11 tablet by ity of tablet 00:00: mouth in [address] and 1 tablet at noon and 1 tablet in the evening. melatonin 5 2022-0 Yes 2.5mg Take 2.5 U nivers mg Chew 7-11 mg by ity of 00:00: mouth. [address] gabapentin 3-0 Yes [id number] 800mg Take 1 [facility] 800 mg 7-11 tablet by ity of tablet 00:00: mouth in [address] and 1 tablet at noon and 1 tablet in the evening. melatonin 5 2022-0 Yes 2.5mg Take 2.5 U nivers mg Chew 7-11 mg by ity of 00:00: mouth. [address] gabapentin 2023-0 Yes [id number] 800mg Take 1 [facility] 800 mg 7-11 tablet by ity of tablet 00:00: mouth in 00 the Medical morning Branch and 1 tablet at noon and 1 tablet in the evening. melatonin 5 2022-0 Yes 2.5mg Take 2.5 U nivers mg Chew 7-11 mg by ity of 00:00: mouth. [place] [facility] lactated 2022-0 Yes 1000mL at 75 Univer s ringers IV 5-08 mL/hr, ity of infusion 21:30: 1,000 [place], [place] 1,000 mL 00 IV Medical Infusion, Branch CONTINUOUS , Starting on Tue12/20/22 at 1630, Until Discontinu ed, Routine, PACU lactated 2022-0 202- No 1000mL at 75 Unive rs ringers IV 5-08 05-09 mL/hr, ity of infusion 21:30: 02:06 1,000 mL, [place] 1,000 mL 00 :12 IV Medical Infusion, Branch CONTINUOUS , Starting on Tue12/20/22 at 1630, Until Tue12/20/22 at 2106, Routine, PACU FENTanyl PF 2022-0 Yes 25ug 25 mcg, Uni vers (SUBLIMAZE 5-08 Slow IV ity of (PF)) 21:23: Push, [place] injection 50 Q5MIN PRN, Medi cierra 25 mcg 4 doses, Branch Starting on Tue12/20/22 at 1623, Until Discontinu ed, Routine, Pain (scale 4-6), PACU ondansetron 2022-0 Yes 4mg 4 mg, Slow Univers (ZOFRAN -08 IV Push, ity of (PF)) 21:23: PRN, 1 [place] injection 4 50 dose, Medical mg Starting Branch on Tue12/20/22 at 1623, Until Discontinu ed, Routine, Nausea and Vomiting (N/V), PACU FENTanyl PF 2022-0 2022- No 25ug 25 mcg, Un jessika (SUBLIMAZE 508 05-09 Slow IV ity o f (PF)) 21:23: 02:06 Push, [place] injection 50 :12 Q5MIN PRN, Medi cierra 25 mcg 4 doses, Branch Starting on Tue12/20/22 at 1623, Until Tue12/20/22 at 2106, Routine, Pain (scale 4-6), PACU ondansetron 2022-0 2022- No 4mg 4 mg, Slow Univers (ZOFRAN 12-20 05-09 IV Push, ity of (PF)) 21:23: 02:06 PRN, 1 [place] injection 4 50 :12 dose, Medical mg Starting Branch on Tue12/20/22 at 1623, Until Tue12/20/22 at 2106, Routine, Nausea and Vomiting (N/V), PACU sodium 2023-0 Yes PRN, Univers chloride 5-08 Starting ity of 0.9 % 21:15: on Mon [place] irrigation 00 12/20/22 at Medi cierra solution 1615, Branch Until Discontinu ed, Intra-op sodium 3-0 2023- No PRN, Univers chloride - 05-09 Starting ity of 0.9 % 21:15: 02:06 on Mon [place] irrigation 00 :12 12/20/22 at Medi cierra solution 1615, Branch Until Tue12/20/22 at 2106, Intra-op melatonin 5 2022-0 Yes 5mg Take 5 mg U nivers mg Chew 5-08 by mouth. ity of 19:01: [address] methocarbam 3-0 Yes 500mg Take 1 Uni vers oL 500 mg 5-08 tablet by ity o f tablet 19:01: mouth [address] daily[address] melatonin 5 2022-0 Yes 5mg Take 5 mg U nivers mg Chew 5-08 by mouth. ity of 19:01: [address] methocarbam 3-0 Yes 500mg Take 1 Uni vers oL 500 mg 5-08 tablet by ity o f tablet 19:01: mouth [address] daily[address] melatonin 5 3-0 Yes 5mg Take 5 mg U nivers mg Chew 5-08 by mouth. ity of 19:01: [address] methocarbam 3-0 Yes 500mg Take 1 Uni vers oL 500 mg 5-08 tablet by ity o f tablet 19:01: mouth [address] daily[address] melatonin 5 3-0 Yes 5mg Take 5 mg U nivers mg Chew 5-08 by mouth. ity of 19:01: [address] methocarbam 3-0 Yes 500mg Take 1 Uni vers oL 500 mg 5-08 tablet by ity o f tablet 19:01: mouth [address]) Medical times [place] daily. melatonin 5 3-0 Yes 5mg Take 5 mg U nivers mg Chew 5-08 by mouth. ity of 19:: [address] methocarbam 3-0 Yes 500mg Take 1 Uni vers oL 500 mg 5-08 tablet by ity o f tablet 19:01: mouth 4 [place] [address] ([facility]) Medical times [place] daily. melatonin 5 3-0 Yes 5mg Take 5 mg U nivers mg Chew 5-08 by mouth. ity of 19:01: [address] methocarbam 2023-0 Yes 500mg Take 1 Uni vers oL 500 mg 5-08 tablet by ity o f tablet 19:01: mouth 4 [place] [address] ([facility]) [facility] times [place] daily. melatonin 5 3-0 Yes 5mg Take 5 mg U nivers mg Chew 5-08 by mouth. ity of 19:: [address] methocarbam 3-0 Yes 500mg Take 1 Uni vers oL 500 mg 5-08 tablet by ity o f tablet 19:01: mouth 4 [place] [address] ([facility]) [facility] times [place] daily. melatonin 5 3-0 Yes 5mg Take 5 mg U nivers mg Chew 5-08 by mouth. ity of 19:01: [address] methocarbam 3-0 Yes 500mg Take 1 Uni vers oL 500 mg 5-08 tablet by ity o f tablet 19:01: mouth 4 [place] [address] ([facility]) [facility] daily. melatonin 5 3-0 Yes 5mg Take 5 mg U nivers mg Chew 5-08 by mouth. ity of 19:: [address] melatonin 5 3-0 Yes 5mg Take 5 mg U nivers mg Chew 5-08 by mouth. ity of 19:01: [address] lactated 3-0 2023- No 1000mL at 42 Unive rs ringers IV 5-08 05-08 mL/hr, ity of infusion 18:45: 19:00 1,000 mL, [place] 1,000 mL 00 :00 IV Medical Infusion, Branch ONCE, 1 dose, On 12/20/22 at 1345, Routine, DSU Pre-op lactated 3-0 2023- No 1000mL at 42 Unive rs ringers IV 5-08 05-08 mL/hr, ity of infusion 18:45: 19:00 1,000 mL, [place] 1,000 mL 00 :00 IV Medical Infusion, Branch ONCE, 1 dose, On Tue12/20/22 at 1345, Routine, DSU Pre-op aspirin 325 2023-0 2023- No [id number] 325mg Take 1 Univers mg tablet 12-20-06 tablet by ity of 00:00: 04:59 mouth in [place] 00 :00 the [facility] morning [place] and 1 tablet in the evening. Take with meals. Do all this for 28 days. aspirin 325 2023-0 2023- No [id number] 325mg Take 1 [facility] mg tablet 12-20-06 tablet by ity of 00:00: 04:59 mouth in [place] 00 :00 the [facility] and 1 tablet in the evening. Take with meals. Do all this for 28 days. aspirin 325 2023-0 2023- No [id number] 325mg Take 1 Univers mg tablet 12-20- tablet by ity of 00:00: 04:59 mouth in [place] 00 :00 the [facility] and 1 tablet in the evening. Take with meals. Do all this for 28 days. aspirin 325 2023-0 2023- No [id number] 325mg Take 1 [facility] mg tablet 12-20-06 tablet by ity of 00:00: 04:59 mouth in [place] 00 :00 the [facility] and 1 tablet in the evening. Take with meals. Do all this for 28 days. aspirin 325 2023-0 2023- No [id number] 325mg Take 1 Univers mg tablet 12-20-06 tablet by ity of 00:00: 04:59 mouth in [place] 00 :00 the [facility] and 1 tablet in the evening. Take with meals. Do all this for 28 days. aspirin 325 2023-0 2023- No [id number] 325mg Take 1 Univers mg tablet 12-20-06 tablet by ity of 00:00: 04:59 mouth in [place] 00 :00 the [facility] and 1 tablet in the evening. Take with meals. Do all this for 28 days. aspirin 325 2023-0 2023- No [id number] 325mg Take 1 Univers mg tablet 12-20 06-06 tablet by ity of 00:00: 04:59 mouth in [place] 00 :00 the Medical morning Branch and 1 tablet in the evening. Take with meals. Do all this for 28 days. aspirin 325 2022- No [id number] 325mg Take 1 Univers mg tablet 12-20-06 tablet by ity of 00:00: 04:59 mouth in [place] 00 :00 the Medical morning Branch and [...] Chew 5-05 by mouth. ity of 12:21: [address] Branch methocarbam 2022-0 Yes 500mg Take 1 Uni vers oL 500 mg 5-05 tablet by ity o f tablet 12:21: mouth 4 [place] [address] (four) Medical times Branch daily. melatonin 5 2022-0 Yes 5mg Take 5 mg U nivers mg Chew 5-04 by mouth. ity of 15:57: [address] methocarbam 2022-0 Yes 500mg Take 1 Uni vers oL 500 mg 5-04 tablet by ity o f tablet 15:57: mouth 4 [place] [address] (four) Medical times Branch daily. melatonin 5 2022-0 Yes 5mg Take 5 mg U nivers mg Chew 5-04 by mouth. ity of 15:57: [address] methocarbam 2022-0 Yes 500mg Take 1 Uni vers oL 500 mg 5-04 tablet by ity o f tablet 15:57: mouth 4 [place] [address] (four) Medical times Branch daily. insulin Yes 20U 20 Units, Unive rs glargine 5-04 Subcutaneo ity o f (LANTUS 14:00: us, DAILY, [place] U-100) 00 First dose Medical injection (after Branch 20 Units last modificati on) on Tue12/16/22 at 0900, Until Discontinu ed, Routine Diphenhydra 2022- No Take by Un jessika mine-Acetam 5-04 05-04 mouth. ity o f inophen 13:17: 00:00 [place] (TYLENOL PM 26 :00 Medical EXTRA Branch STRENGTH) 25-500 mg Tab Diphenhydra 2022- No Take by Un jessika mine-Acetam 5-04 05-04 mouth. ity o f inophen 13:17: 00:00 [place] (TYLENOL PM 26 :00 Medical EXTRA Branch STRENGTH) 25-500 mg Tab atorvastati Yes 40mg 40 mg, Univ ers n (LIPITOR) 5-04 Oral, QHS, it y of tablet 40 02:00: First dose [place] mg 00 on [facility] Medical 12/15/22 at Branch 2100, Until Discontinu ed, Routine atorvastati 2022- No [id number] 40mg Take 1 Univers n 40 mg 5- 06-04 tablet by ity of tablet 00:00: 04:59 mouth at [place] 00 :00 bedtime Medical for 30 Branch days. atorvastati 2022- No [id number] 40mg Take 1 Univers n 40 mg 5-04 06-04 tablet by ity of tablet 00:00: 04:59 mouth at [place] 00 :00 bedtime Medical for 30 Branch days. atorvastati 2022- No [id number] 40mg Take 1 Univers n 40 mg 5-04 -04 tablet by ity of tablet 00:00: 04:59 mouth at [place] 00 :00 bedtime Medical for 30 Branch days. atorvastati 2022- No [id number] 40mg Take 1 Univers n 40 mg 5-04 -04 tablet by ity of tablet 00:00: 04:59 mouth at [place] 00 :00 bedtime Medical for 30 Branch days. atorvastati 2022- No [id number] 40mg Take 1 Univers n 40 mg 5-04 -04 tablet by ity of tablet 00:00: 04:59 mouth at [place] 00 :00 bedtime Medical for 30 Branch days. atorvastati 2022- No [id number] 40mg Take 1 Univers n 40 mg 5-04 -04 tablet by ity of tablet 00:00: 04:59 mouth at [place] 00 :00 bedtime Medical for 30 Branch days. atorvastati 2022- No [id number] 40mg Take 1 Univers n 40 mg 5-04 06-04 tablet by ity of tablet 00:00: 04:59 mouth at [place] 00 :00 bedtime Medical for 30 Branch days. atorvastati 2022- No [id number] 40mg Take 1 Univers n 40 mg 5-04 06-04 tablet by ity of tablet 00:00: 04:59 mouth at [place] 00 :00 bedtime Medical for 30 Branch days. atorvastati 2022- No [id number] 40mg Take 1 Univers n 40 mg 5-11 18-04 tablet by ity of tablet 00:00: 04:59 mouth at [place] 00 :00 bedtime Medical for 30 Branch days. atorvastati 2022- No [id number] 40mg Take 1 Univers n 40 mg 5-04 -04 tablet by ity of tablet 00:00: 04:59 mouth at [place] 00 :00 bedtime Medical for 30 Branch days. atorvastati 2022- No [id number] 40mg Take 1 Univers n 40 mg 5-11 18-04 tablet by ity of tablet 00:00: 04:59 mouth at [place] 00 :00 bedtime Medical for 30 Branch [...] Lispro 00 First dose Medical (HumaLOG) on Wed Branch 12/15/22 at 1700, Until Discontinu ed, Routine insulin Yes 3U 3 Units, Univer s lispro -03 Subcutaneo ity of (human) 22:00: us, TID [place] (HumaLOG 00 MEALS, Medical U-100) First dose Branch injection 3 on Wed Units 12/15/22 at 1700, Until Discontinu ed, Routine Sliding No Subcutaneo Uni vers Scale 5- 05-03 us, AC+HS, ity of Insulin-Reg 12:30: 20:24 First dose [place] ular 00 :27 on Tue Medical 12/15/22 at Branch 0730, Until Discontinu ed, Routine insulin 2022- No 10U 10 Units, [facility] ers regular 12-15 Subcutaneo ity o f human 10:00: 09:25 us, ONCE, [place] (HUMULIN R) 00 :00 1 dose, On Me dical injection Tue12/15/22 Bran ch 10 Units at 0500, Routine
Indicatio n for insulin: Hyperglyce buck insulin 2022- No 10U 10 Units, [facility] ers glargine 12-15 Subcutaneo ity of (LANTUS 09:15: 14:03 us, BID, [place] U-100) 00 :38 First dose Medical injection on Tue Branch 10 Units 12/15/22 at 0415, Until Discontinu ed, Routine NaCl 0.9% No 1000mL at [address] [facility] ers (NS) IV 12-15 mL/hr, IV ity of infusion 06:15: 05:33 Infusion, [place] 1,000 mL 00 :16 ONCE, 1 Medical dose, On Branch Tue12/15/22 at 0115, Routine potassium No 10meq 10 mEq, IV Univers chloride in 12-15 Piggyback, i ty of water 10 06:00: 08:56 ONCE, 1 [place] mEq/100 mL 00 :00 dose, On Medic al RTU 10 mEq Tue12/15/22 [facility] at 0100, Administer over 60 Minutes, 100 mL insulin 2022- No 10U 10 Units, [facility] glargine 12-15 Subcutaneo ity of (LANTUS 05:15: 09:12 us, QHS, [place] U-100) 00 :04 First dose Medical injection on Tue Branch 10 Units 12/15/22 at 0015, Until Discontinu ed, Routine nicotine Yes 1{patch 1 Patch, Un jessika (NICODERM) 12-15 } Topical, ity o f 14 mg/24 hr 01:15: Administer [place] patch 1 00 over 24 Medical Patch Hours, Branch Q24H, First dose on Tue12/14/22 at 2015, Until Discontinu ed, Routine morpHINE (2 Yes 2mg 2 mg, Slow Univers mg/mL) 12-14 IV Push, ity of injection 2 23:20: Q4HPRN, [place] mg 08 Starting Medical on [facility] Branch 12/14/22 at 1820, Until Discontinu ed, Routine, Pain (scale 7-10) morpHINE (4 2022-2022- No 2mg 2 mg, Slow Univers mg/mL) 12-14 IV Push, ity of injection 2 23:01: 23:20 Q4HPRN, [place] mg 25 :58 Starting Medical on [facility] Branch 12/14/22 at 1801, Until [facility] 12/14/22 at 1820, Routine, Pain (scale 7-10) HYDROcodone 0 Yes 1{tbl} 1 tablet, Univers -acetaminop 12-14 Oral, ity of hen (NORCO 23:01: Q6HPRN, [place] 5) 5-325 mg 04 Starting Medi cierra tablet 1 on [facility] tablet 12/14/22 at 1801, Until Discontinu ed, Routine, Pain (scale 4-6) NaCl 0.9% 2022- No 1000mL at 999 Uni vers (NS) bolus 12-14 mL/hr, ity of infusion 22:15: 21:33 1,000 mL, [place] 1,000 mL 00 :00 IV Medical Infusion, Branch ONCE, 1 dose, On Tue12/14/22 at 1715, [place] enoxaparin Yes 40mg 40 mg, Unive rs (LOVENOX) 12-14 Subcutaneo ity of injection 22:00: us, DAILY, [place] 40 mg 00 First dose Medical on [facility] 12/14/22 at 1700, Until Discontinu ed, Routine morpHINE (4 2022-2022- No 4mg 4 mg, Slow Univers mg/mL) 12-14 IV Push, ity of injection 4 22:00: 21:51 ONCE, 1 [place] mg 00 :00 dose, On Medical 12/14/22 Branch at 1700, STAT metoclopram 2022-0 2022- No 10mg 10 mg, Uni vers adela HCl 12-14- Slow IV ity of (REGLAN) 21:30: 21:51 Push, [place] injection 00 :00 ONCE, 1 Medical 10 mg dose, On Branch Tue12/14/22 at 1630, [place] insulin 2022-0 2022- No 0U/kg/h 0-0.3 Unive rs regular in 12-14 05-03 Units/kg/h it y of 0.9 % NaCl 21:12: 05:28 r ?53.5 kg [place] (MYXREDLIN) 53 :13 (0-16.05 Medi cierra 100 [...] of at least 10% in glucose levels, [facility] for considerat ion of endocrinol ogy consult&nb [...] IV ity of human 20:45: 20:04 Piggyback, [place] (HUMULIN R) 00 :00 ONCE, 1 Medic al injection dose, On Branch 10 Units Tue12/14/22 at 1545, Routine
Indicatio n for insulin: Hyperglyce buck NaCl 0.9% 2022- No 1000mL at 999 Uni vers (NS) bolus 12-14-02 mL/hr, ity of infusion 20:15: 21:26 1,000 [...] mine-Acetam 12-14 mouth. ity of inophen 18:38: [place] (TYLENOL PM 37 Medical EXTRA Branch STRENGTH) 25-500 mg Tab melatonin 5 2023-0 Yes 5mg Take 5 mg U nivers mg Chew 5-02 by mouth. ity of 18:38: [place] [id number] Medical Branch medroxyPROG 2022-0 2022- No [id number] 150mg Univers ESTERone 12-1403 ity of (DEPO-PROVE 14:00: 01:59 [facility]) syringe 00 :00 Medical 150 mg Branch medroxyPROG 2022-0 2022- No [id number] 150mg Univers ESTERone 12-1403 ity of (DEPO-PROVE 14:00: 01:59 [facility]) syringe 00 :00 Medical 150 mg Branch medroxyPROG 2022-0 2022- No [id number] 150mg 150 mg, Univers ESTERone 12-14 Intramuscu ity of (DEPO-PROVE 14:00: 19:12 lar, ONCE, [facility]) syringe 00 :00 1 dose, On Me dical 150 mg 12/14/22 Branch at 0900, Routine medroxyPROG 2022- No [id number] 150mg Univers ESTERone 12-14 ity of (DEPO-PROVE 14:00: 19:12 [facility]) syringe 00 :00 Medical 150 mg Branch melatonin 5 2022-0 Yes 5mg Take 5 mg U nivers mg Chew 4-25 by mouth. ity of 09:28: [address] melatonin 5 2022-0 Yes 5mg Take 5 mg U nivers mg Chew 4-25 by mouth. ity of 09:28: [address] melatonin 5 2022-0 Yes 5mg Take 5 mg U nivers mg Chew 4-25 by mouth. ity of 09:28: [address] Branch HUMALOG 0 Yes Univers KWIKPEN [...] [place] unit/mL 00 Medical injection Branch HUMALOG 2023-0 Yes Bernice ACOSTA 3-17 ity of INSULIN 100 00:00: [place] unit/mL 00 Medical injection Branch HUMALOG 3-0 3- No Bernice CARCAMOPEN 3-17 05-04 ity of INSULIN 100 00:00: [...] spray ONCE DAILY FOR 10 DAYS. fluticasone 2022-0 Yes INSTILL Uni vers propionate 1-27 ONE (1) ity of 50 00:00: SPRAY INTO [place] mcg/actuati 00 EACH Medical on nasal NOSTRIL [...] (1) ity of 50 00:00: SPRAY INTO [place] mcg/actuati 00 EACH Medical on nasal NOSTRIL [...] (1) ity of 50 00:00: SPRAY INTO [place] mcg/actuati 00 EACH Medical on nasal NOSTRIL Branch spray ONCE DAILY FOR 10 DAYS. fluticasone 2023-0 Yes INSTILL Uni vers propionate 1-27 ONE (1) ity of 50 00:00: SPRAY INTO [place] mcg/actuati 00 EACH Medical on nasal NOSTRIL Branch spray ONCE DAILY FOR 10 DAYS. fluticasone 2023-0 Yes INSTILL Uni vers propionate 1-27 ONE (1) ity of 50 00:00: SPRAY INTO [place] mcg/actuati 00 EACH Medical on nasal NOSTRIL Branch spray ONCE DAILY FOR 10 DAYS. fluticasone 2023-0 Yes INSTILL Uni vers propionate 1-27 ONE (1) ity of 50 00:00: SPRAY INTO [place] mcg/actuati 00 EACH Medical on nasal NOSTRIL [...] spray ONCE DAILY FOR 10 DAYS. fluticasone 2022-0 3- No INSTILL Un jessika propionate 09-10 ONE (1) ity o f 50 00:00: 00:00 SPRAY INTO [place] mcg/actuati 00 :00 EACH Medical on nasal NOSTRIL Branch spray ONCE DAILY FOR 10 DAYS. fluticasone 2022-0 2023- No INSTILL Un jessika propionate 09-10 ONE (1) ity o f 50 00:00: 00:00 SPRAY INTO [place] mcg/actuati 00 :00 EACH Medical on nasal NOSTRIL Branch spray ONCE DAILY FOR 10 DAYS. fluticasone 2022-0 2023- No INSTILL Un jessika propionate 09-10 ONE (1) ity o f 50 00:00: 00:00 SPRAY INTO [place] mcg/actuati 00 :00 EACH Medical on nasal NOSTRIL Branch spray ONCE DAILY FOR 10 DAYS. fluticasone 2022-0 3- No INSTILL Un jessika propionate 09-10 ONE (1) ity o f 50 00:00: 00:00 SPRAY INTO [place] mcg/actuati 00 :00 EACH Medical on nasal NOSTRIL Branch spray ONCE DAILY FOR 10 DAYS. acetaminoph 2021-08- No 650mg Take [address] [facility] 09-[facility]18 tablets [facility] (TYLENOL) 00:00: 23:59 (650 mg Medi cierra 325 MG 00 :00 total) by Center tablet mouth every 6 (six) hours as needed for up to 360 days. acetaminoph 2021-08- No 650mg Take [address] [facility] 09-06-18 tablets [facility] (TYLENOL) 00:00: 23:59 (650 mg Medi cierra 325 MG 00 :00 total) by Center tablet mouth every 6 (six) hours as needed for up to 360 days. acetaminoph 2021-08- No 650mg Take [address] [facility] 09-06-18 tablets [facility] (TYLENOL) 00:00: 23:59 (650 mg [...] (two) times daily for 3 days. insulin 0 Yes 15U inject 15 Unive rs lispro 100 3-15 Units ity of unit/mL 00:00: under the [place] inph 00 skin in [facility] morning. insulin 0 Yes 15U inject 15 Unive rs lispro 100 3-15 Units ity of unit/mL 00:00: under the [place] inph 00 skin in [facility] morning. insulin 0 Yes 15U inject 15 Unive rs lispro 100 3-15 Units ity of unit/mL 00:00: under the [place] inph 00 skin in [facility] morning. insulin 0 Yes 15U inject 15 Unive rs lispro 100 3-15 Units ity of unit/mL 00:00: under the [place] inph 00 skin in [facility] morning. insulin 0 2022- No 15U inject 15 Univ ers lispro 100 3-15 05-04 Units ity of unit/mL 00:00: 00:00 under the [place] inph 00 :00 skin in [facility] morning. Blood-Gluco 2020- Yes Use to Univ ers se Meter 1-09 check ity of (ONETOUCH 00:00: blood [place] VERIO FLEX 00 sugar 3X Medic al METER) Misc daily. [place] DX:E10.69 Blood-Gluco 2020-1 Yes Use to Univ [...] al METER) Misc daily. Branch DX:E10.69 Blood-Gluco 2020 Yes Use to Univ ers se Meter [...] Branch DX:E10.69 lancets 2019-08 Yes Use to [facility] (ONE TOUCH 08-23 check ity of DELICA) [...] Branch DX:E10.69 lancets 2019-08 Yes Use to [facility] (ONE TOUCH 08-23 check ity of DELICA) 33 00:00: blood [place] gauge Misc 00 sugar 3X Medic al daily. Branch DX:E10.69 blood sugar 2019-08 Yes Use to Univ ers diagnostic - check ity of (ONETOUCH 00:00: blood [...] 2019-08- No Use to Univers (ONE TOUCH 08-23-25 check ity of DELICA) 33 00:00: 00:00 [...] mine-Acetam 1-06 mouth. ity of inophen 10:51: (TYLENOL PM 02 Medical EXTRA Branch STRENGTH) 25-500 mg Tab Diphenhydra 2019-08 Yes Take by Uni vers mine-Acetam 1-06 mouth. ity of inophen 10:51: [place] (TYLENOL PM 02 Medical EXTRA Branch STRENGTH) 25-500 mg Tab Diphenhydra 2019-08 Yes Take by Uni vers mine-Acetam 1-06 mouth. ity of inophen 10:51: (TYLENOL PM 02 Medical EXTRA Branch STRENGTH) 25-500 mg Tab insulin 2019-08 Yes [id number] 22U inject 22 Univers degludec 1-06 Units ity of (TRESIBA 00:00: under the [place] FLEXTOUCH 00 skin Medical U-100) 100 daily. Branch unit/mL (3 mL) InPn insulin 2019- Yes [id number] 5U inject Uni vers lispro-aabc 1-06 5-14 Units it y of 100 unit/mL 00:00: under the [place] InPn 00 skin 3 Medical (three) Branch times daily with meals. Insulin 2019- Yes [id number] 1{each} inject 1 Univers [place], 1-06 Each under ity o f Disposable, 00:00: the skin [place] (PEN 00 before Medical NEEDLE) 31 meals and Bran ch gauge x at 3/16" Ndle bedtime. Use as directed insulin 2019- Yes [id number] 22U inject 22 Univers degludec 1-06 Units ity of (TRESIBA 00:00: under the [place] FLEXTOUCH 00 skin Medical U-100) 100 daily. Branch unit/mL (3 mL) InPn insulin 2019- Yes [id number] 5U inject Uni vers lispro-aabc 1-06 5-14 Units it y of 100 unit/mL 00:00: under the [place] InPn 00 skin 3 Medical (three) Branch times daily with meals. Insulin 2019- Yes [id number] 1{each} inject 1 Univers [place], 1-06 Each under ity o f Disposable, 00:00: the skin [place] (PEN 00 before Medical NEEDLE) 31 meals and Bran ch gauge x at 3/16" Ndle bedtime. Use as directed insulin 2019- Yes [id number] 22U inject 22 Univers degludec 1-06 Units ity of (TRESIBA 00:00: under the [place] FLEXTOUCH 00 skin Medical U-100) 100 daily. Branch unit/mL (3 mL) InPn insulin 2020- Yes [id number] 5U inject Uni vers lispro-aabc 1-06 5-14 Units it y of 100 unit/mL 00:00: under the [place] InPn 00 skin 3 Medical (three) Branch times daily with meals. Insulin 2019- Yes [id number] 1{each} inject 1 Univers [place], 1-06 Each under ity o f Disposable, 00:00: the skin [place] (PEN 00 before Medical NEEDLE) 31 meals and Bran ch gauge x at 3/16" Ndle bedtime. Use as directed insulin 2019- Yes [id number] 22U inject 22 Univers degludec 1-06 Units ity of (TRESIBA 00:00: under the [place] FLEXTOUCH 00 skin Medical U-100) 100 daily. Branch unit/mL (3 mL) InPn insulin 2019- Yes [id number] 5U inject Uni vers lispro-aabc 1-06 5-14 Units it y of 100 unit/mL 00:00: under the [place] InPn 00 skin 3 Medical (three) Branch times daily with meals. Insulin 2019- Yes [id number] 1{each} inject 1 Univers [place], 1-06 Each under ity o f Disposable, 00:00: the skin [place] (PEN 00 before Medical NEEDLE) 31 meals and Bran ch gauge x at 3/16" Ndle bedtime. Use as directed insulin 2019- Yes [id number] 22U inject 22 Univers degludec 1-06 Units ity of (TRESIBA 00:00: under the [place] FLEXTOUCH 00 skin Medical U-100) 100 daily. Branch unit/mL (3 mL) InPn insulin 2020- Yes [id number] 5U inject Uni vers lispro-aabc 1-06 5-14 Units it y of 100 unit/mL 00:00: under the [place] InPn 00 skin 3 Medical (three) Branch times daily with meals. Insulin 2019- Yes [id number] 1{each} inject 1 Univers [place], 1-06 Each under ity o f Disposable, 00:00: the skin [place] (PEN 00 before Medical NEEDLE) 31 meals and Bran ch gauge x at 3/16" Ndle bedtime. Use as directed insulin 2020- Yes [id number] 22U inject 22 Univers degludec 1-06 Units ity of (TRESIBA 00:00: under the [place] FLEXTOUCH 00 skin Medical U-100) 100 daily. Branch unit/mL (3 mL) InPn insulin 2020- Yes [id number] 5U inject Uni vers lispro-aabc 1-06 5-14 Units it y of 100 unit/mL 00:00: under the [place] InPn 00 skin 3 Medical (three) Branch times daily with meals. Insulin 2019- Yes [id number] 1{each} inject 1 Univers [place], 1-06 Each under ity o f Disposable, 00:00: the skin [place] (PEN 00 before Medical NEEDLE) 31 meals and Bran ch gauge x at 3/16" Ndle bedtime. Use as directed insulin 2019- Yes [id number] 22U inject 22 [facility] Units it[facility] of ([facility] 00:[place] skin [facility] U-100) 100 daily. Branch unit/mL (3 mL) InPn insulin 2020- Yes [id number] 5U inject [facility] 1-06 5-14 Units it y of 100 unit/mL 00:00: [place] InPn 00 skin 3 Medical (three) Branch times daily with meals. Insulin 2020- Yes [id number] 1{each} inject 1 [facility], 1-06 Each under ity o f Disposable, 00:00: the skin [place] (PEN 00 before Medical NEEDLE) 31 meals and Bran ch gauge x at 3/16" Ndle bedtime. Use as directed insulin 2020- Yes [id number] 22U inject 22 [facility] 1-06 Units ity of ([place] 00:[place]: [place] skin Medical U-100) 100 daily. Branch unit/mL (3 mL) InPn insulin 2020- Yes [id number] 5U inject [facility] 1-06 5-14 Units it y of 100 unit/mL 00:00: under the [place] InPn 00 skin 3 Medical (three) Branch times daily with meals. Insulin 2020- Yes [id number] 1{each} inject 1 [facility], 1-06 Each under ity o f Disposable, 00:00: the skin [place] (PEN 00 before Medical NEEDLE) 31 meals and Bran ch gauge x at 3/16" Ndle bedtime. Use as directed insulin 2020- Yes [id number] 22U inject 22 [facility] 1-06 Units ity of ([place]ESIB[place] 00:[place]: [place] 00 skin Medical U-100) 100 daily. Branch unit/mL (3 mL) InPn insulin 2020- Yes [id number] 5U inject [facility] 1-06 5-14 Units it y of 100 unit/mL 00:00: under the [place] InPn 00 skin 3 Medical (three) Branch times daily with meals. Insulin 2019- Yes [id number] 1{each} inject 1 [facility], 1-06 Each under ity o f Disposable, 00:00: the skin [place] (PEN 00 before Medical NEEDLE) 31 meals and Bran ch gauge x at 3/16" Ndle bedtime. Use as directed insulin 2019- Yes [id number] 22U inject 22 [facility] 1-06 Units ity of ([place]ESIBA 00:[place]: [place] 00 skin Medical U-100) 100 daily. Branch unit/mL (3 mL) InPn insulin 2020- Yes [id number] 5U inject [facility] 1-06 5-14 Units it y of 100 unit/mL 00:00: under the [place] InPn 00 skin 3 Medical (three) Branch times daily with meals. Insulin 2020- Yes [id number] 1{each} inject 1 [facility], 1-06 Each under ity o f Disposable, 00:00: the skin [place] (PEN 00 before Medical NEEDLE) 31 meals and Bran ch gauge x at 3/16" Ndle bedtime. Use as directed insulin 2020- Yes [id number] 22U inject 22 [facility] 1-06 Units ity of ([place] 00:[place]: [place] skin Medical U-100) 100 daily. Branch unit/mL (3 mL) InPn insulin 2020- Yes [id number] 5U inject [facility] 1-06 5-14 Units it y of 100 unit/mL 00:00: under the [place] InPn 00 skin 3 Medical (three) Branch times daily with meals. insulin 2019-08 Yes [id number] 22U inject 22 [facility] 1-06 Units ity of ([place]ESIB[place] 00:00: [place] 00 skin Medical U-100) 100 daily. Branch unit/mL (3 mL) InPn gabapentin 2019- Yes [id number] 300mg Take 1 [facility] 300 mg 1-06 capsule by ity of capsule 00:00: mouth 2 [place] 00 (two) Medical times Branch daily. insulin 2019- Yes [id number] 5U inject [facility] 1-06 5-14 Units it y of 100 unit/mL 00:00: under the [place] InPn 00 skin 3 Medical (three) Branch times daily with meals. Insulin 2019- Yes [id number] 1{each} inject 1 [facility], 1-06 Each under ity o f Disposable, 00:00: the skin [place] (PEN 00 before Medical NEEDLE) 31 meals and Bran ch gauge x at 3/16" Ndle bedtime. Use as directed Insulin 2019- Yes [id number] 1{each} inject 1 [facility], 1-06 Each under ity o f Disposable, 00:00: the skin [place] (PEN 00 before Medical NEEDLE) 31 meals and Bran ch gauge x at 3/16" Ndle bedtime. Use as directed insulin 2019- Yes [id number] 22U inject 22 [facility] 1-06 Units ity of ([place]ESIBA 00:00: [place] 00 skin Medical U-100) 100 daily. Branch unit/mL (3 mL) InPn insulin 2019- Yes [id number] 5U inject [facility] 1-06 5-14 Units it y of 100 unit/mL 00:00: under the [place] InPn 00 skin 3 Medical (three) Branch times daily with meals. Insulin 2019- Yes [id number] 1{each} inject 1 [facility], 1-06 Each under ity o f Disposable, 00:00: the skin [place] (PEN 00 before Medical NEEDLE) 31 meals and Bran ch gauge x at 3/16" Ndle bedtime. Use as directed insulin 2020- Yes [id number] 22U inject 22 [facility] 1-06 Units ity of ([place]ESIB[place] 00:00: [place] 00 skin Medical U-100) 100 daily. Branch unit/mL (3 mL) InPn insulin 2020- Yes [id number] 5U inject [facility] 1-06 5-14 Units it y of 100 unit/mL 00:00: under the [place] InPn 00 skin 3 Medical (three) Branch times daily with meals. Insulin 2019- Yes [id number] 1{each} inject 1 [facility], 1-06 Each under ity o f Disposable, 00:00: the skin [place] (PEN 00 before Medical NEEDLE) 31 meals and Bran ch gauge x at 3/16" Ndle bedtime. Use as directed insulin 2019- Yes [id number] 22U inject 22 [facility] 1-06 Units ity of ([place]ESIBA 00:[place]: [place] 00 skin Medical U-100) 100 daily. Branch unit/mL (3 mL) InPn insulin 2020- Yes [id number] 5U inject [facility] 1-06 5-14 Units it y of 100 unit/mL 00:00: under the [place] InPn 00 skin 3 Medical (three) Branch times daily with meals. Insulin 2019- Yes [id number] 1{each} inject 1 [facility], 1-06 Each under ity o f Disposable, 00:00: the skin [place] (PEN 00 before Medical NEEDLE) 31 meals and Bran ch gauge x at 3/16" Ndle bedtime. Use as directed insulin 2020- Yes [id number] 22U inject 22 [facility] 1-06 Units ity of ([place]ESIB[place] 00:00: [place] 00 skin Medical U-100) 100 daily. Branch unit/mL (3 mL) InPn insulin 2020- Yes [id number] 5U inject [facility] 1-06 5-14 Units it y of 100 unit/mL 00:00: under the [place] InPn 00 skin 3 Medical (three) Branch times daily with meals. Insulin 2020- Yes [id number] 1{each} inject 1 [facility], 1-06 Each under ity o f Disposable, 00:00: the skin [place] (PEN 00 before Medical NEEDLE) 31 meals and Bran ch gauge x at 3/16" Ndle bedtime. Use as directed insulin 2020- Yes [id number] 22U inject 22 [facility] 1-06 Units ity of ([place]ESIB[place] 00:00: [place] 00 skin Medical U-100) 100 daily. Branch unit/mL (3 mL) InPn insulin 2020- Yes [id number] 5U inject [facility] 1-06 5-14 Units it y of 100 unit/mL 00:00: under the [place] InPn 00 skin 3 Medical (three) Branch times daily with meals. Insulin 2019- Yes [id number] 1{each} inject 1 [facility], 1-06 Each under ity o f Disposable, 00:00: the skin [place] (PEN 00 before Medical NEEDLE) 31 meals and Bran ch gauge x at 3/16" Ndle bedtime. Use as directed insulin 2019- Yes [id number] 22U inject 22 [facility] 1-06 Units ity of ([place]ESIB[place] 00:00: [place] 00 skin Medical U-100) 100 daily. Branch unit/mL (3 mL) InPn insulin 2020- Yes [id number] 5U inject [facility] 1-06 5-14 Units it y of 100 unit/mL 00:00: under the [place] InPn 00 skin 3 Medical (three) Branch times daily with meals. Insulin 2020- Yes [id number] 1{each} inject 1 [facility], 1-06 Each under ity o f Disposable, 00:00: the skin [place] (PEN 00 before Medical NEEDLE) 31 meals and Bran ch gauge x at 3/16" Ndle bedtime. Use as directed insulin 2020- Yes [id number] 22U inject 22 [facility] 1-06 Units ity of ([place] 00:[place]: [place] 00 skin Medical U-100) 100 daily. Branch unit/mL (3 mL) InPn insulin 2020- Yes [id number] 5U inject [facility] 1-06 5-14 Units it y of 100 unit/mL 00:00: under the [place] InPn 00 skin 3 Medical (three) Branch times daily with meals. Insulin 2019-08 Yes [id number] 1{each} inject 1 [facility], 1-06 Each under ity o f Disposable, 00:00: the skin [place] (PEN 00 before Medical NEEDLE) 31 meals and Bran ch gauge x at 3/16" Ndle bedtime. Use as directed insulin 2019- Yes [id number] 22U inject 22 [facility] 1-06 Units ity of ([place]ESIB[place] 00:00: [place] 00 skin Medical U-100) 100 daily. Branch unit/mL (3 mL) InPn insulin 2019- Yes [id number] 5U inject [facility] 1-06 5-14 Units it y of 100 unit/mL 00:00: under the [place] InPn 00 skin 3 Medical (three) Branch times daily with meals. Insulin 2019- Yes [id number] 1{each} inject 1 [facility], 1-06 Each under ity o f Disposable, 00:00: the skin [place] (PEN 00 before Medical NEEDLE) 31 meals and Bran ch gauge x at 3/16" Ndle bedtime. Use as directed insulin 2019- Yes [id number] 22U inject 22 [facility] 1-06 Units ity of ([place]ESIB[place] 00:[place]: [place] 00 skin Medical U-100) 100 daily. Branch unit/mL (3 mL) InPn insulin 2019- Yes [id number] 5U inject [facility] 1-06 5-14 Units it y of 100 unit/mL 00:00: under the [place] InPn 00 skin 3 Medical (three) Branch times daily with meals. Insulin 2019- Yes [id number] 1{each} inject 1 [facility], 1-06 Each under ity o f Disposable, 00:00: the skin [place] (PEN 00 before Medical NEEDLE) 31 meals and Bran ch gauge x at 3/16" Ndle bedtime. Use as directed insulin 2019- Yes [id number] 22U inject 22 [facility] 1-06 Units ity of ([place]ESIBA 00:00: [place] 00 skin Medical U-100) 100 daily. Branch unit/mL (3 mL) In insulin 2019- Yes [id number] 5U inject [facility] 1-06 5-14 Units it y of 100 unit/mL 00:00: under the [place] InPn 00 skin 3 Medical (three) Branch times daily with meals. Insulin 2019- Yes [id number] 1{each} inject 1 [facility], 1-06 Each under ity o f Disposable, 00:00: the skin [place] (PEN 00 before Medical NEEDLE) 31 meals and Bran ch gauge x at 3/16" Ndle bedtime. Use as directed insulin 2019- Yes [id number] 22U inject 22 [facility] 1-06 Units ity of ([place]ESIBA 00:00: [place] 00 skin Medical U-100) 100 daily. Branch unit/mL (3 mL) InPn insulin 2019- Yes [id number] 5U inject [facility] 1-06 5-14 Units it y of 100 unit/mL 00:00: under the [place] InPn 00 skin 3 Medical (three) Branch times daily with meals. Insulin 2019- Yes [id number] 1{each} inject 1 [facility], 1-06 Each under ity o f Disposable, 00:00: the skin [place] (PEN 00 before Medical NEEDLE) 31 meals and Bran ch gauge x at 3/16" Ndle bedtime. Use as directed insulin 2019- Yes [id number] 22U inject 22 [facility] 1-06 Units ity of (TRESIBA 00:00: [place] 00 skin Medical U-100) 100 daily. Branch unit/mL (3 mL) InPn insulin 2019- Yes [id number] 5U inject [facility] 1-06 5-14 Units it y of 100 unit/mL 00:00: under the [place] InPn 00 skin 3 Medical (three) Branch times daily with meals. Insulin 2019- Yes [id number] 1{each} inject 1 [facility], 1-06 Each under ity o f Disposable, 00:00: the skin [place] (PEN 00 before Medical NEEDLE) 31 meals and Bran ch gauge x at 3/16" Ndle bedtime. Use as directed insulin 2019- Yes [id number] 22U inject 22 [facility] 1-06 Units ity of ([place]ESIBA 00:00: [place] 00 skin Medical U-100) 100 daily. Branch unit/mL (3 mL) InPn insulin 2019- Yes [id number] 5U inject [facility] 1-06 5-14 Units it y of 100 unit/mL 00:00: under the [place] InPn 00 skin 3 Medical (three) Branch times daily with meals. Insulin 2019- Yes [id number] 1{each} inject 1 [facility], 1-06 Each under ity o f Disposable, 00:00: the skin [place] (PEN 00 before Medical NEEDLE) 31 meals and Bran ch gauge x at 3/16" Ndle bedtime. Use as directed insulin 2019- Yes [id number] 22U inject 22 [facility] 1-06 Units ity of (TRESIBA 00:00: [place] 00 skin Medical U-100) 100 daily. Branch unit/mL (3 mL) InPn insulin 2019- Yes [id number] 5U inject [facility] 1-06 5-14 Units it y of 100 unit/mL 00:00: under the [place] In 00 skin 3 Medical (three) Branch times daily with meals. gabapentin 2019- Yes [id number] 300mg Take 1 [facility] 300 mg 1-06 capsule by ity of capsule 00:00: mouth 2 [place] 00 (two) Medical times Branch daily. insulin 2019- Yes [id number] 22U inject 22 [facility] 1-06 Units ity of (TRESIBA 00:00: [place] 00 skin Medical U-100) 100 daily. Branch unit/mL (3 mL) InPn Insulin 2019- Yes [id number] 1{each} inject 1 [facility], 1-06 Each under ity o f Disposable, 00:00: the skin [place] (PEN 00 before Medical NEEDLE) 31 meals and Bran ch gauge x at 3/16" Ndle bedtime. Use as directed insulin 2019- Yes [id number] 5U inject [facility] 1-06 5-14 Units it y of 100 unit/mL 00:00: under the [place] InPn 00 skin 3 Medical (three) Branch times daily with meals. Insulin 2020- Yes [id number] 1{each} inject 1 [facility], 1-06 Each under ity o f Disposable, 00:00: the skin [place] (PEN 00 before Medical NEEDLE) 31 meals and Bran ch gauge x at 3/16" Ndle bedtime. Use as directed insulin 2019- Yes [id number] 22U inject 22 [facility] 1-06 Units ity of (TRESIBA 00:00: [place] 00 skin Medical U-100) 100 daily. Branch unit/mL (3 mL) In Insulin 2019-08 Yes [id number] 1{each} inject 1 [facility], 1-06 Each under ity o f Disposable, 00:00: the skin [place] (PEN 00 before Medical NEEDLE) 31 meals and Bran ch gauge x at 3/16" Ndle bedtime. Use as directed insulin 2019- Yes [id number] 22U inject 22 [facility] 1-06 Units ity of (TRESIBA 00:00: [place] 00 skin Medical U-100) 100 daily. Branch unit/mL (3 mL) In Insulin 2019- Yes [id number] 1{each} inject 1 [facility], 1-06 Each under ity o f Disposable, 00:00: the skin [place] (PEN 00 before Medical NEEDLE) 31 meals and Bran ch gauge x at 3/16" Ndle bedtime. Use as directed insulin 2019- Yes [id number] 22U inject 22 [facility] 1-06 Units ity of (TRESIBA 00:00: [place] 00 skin Medical U-100) 100 daily. Branch unit/mL (3 mL) InPn Insulin 2020- Yes [id number] 1{each} inject 1 [facility], 1-06 Each under ity o f Disposable, 00:00: the skin [place] (PEN 00 before Medical NEEDLE) 31 meals and Bran ch gauge x at 3/16" Ndle bedtime. Use as directed insulin 2019- Yes [id number] 22U inject 22 [facility] 1-06 Units ity of (TRESIBA 00:00: [place] 00 skin Medical U-100) 100 daily. Branch unit/mL (3 mL) InPn Insulin 2020- Yes [id number] 1{each} inject 1 [facility], 1-06 Each under ity o f Disposable, 00:00: the skin [place] (PEN 00 before Medical NEEDLE) 31 meals and Bran ch gauge x at 3/16" Ndle bedtime. Use as directed insulin 2020- Yes [id number] 22U inject 22 [facility] 1-06 Units ity of (TRESIBA 00:00: [place] 00 skin Medical U-100) 100 daily. Branch unit/mL (3 mL) InPn Insulin 2019- Yes [id number] 1{each} inject 1 [facility], 1-06 Each under ity o f Disposable, 00:00: the skin [place] (PEN 00 before Medical NEEDLE) 31 meals and Bran ch gauge x at 3/16" Ndle bedtime. Use as directed insulin 2019- Yes [id number] 22U inject 22 [facility] 1-06 Units ity of (TRESIBA 00:00: [place] 00 skin Medical U-100) 100 daily. Branch unit/mL (3 mL) InPn Insulin 2020- Yes [id number] 1{each} inject 1 [facility], 1-06 Each under ity o f Disposable, 00:00: the skin [place] (PEN 00 before Medical NEEDLE) 31 meals and Bran ch gauge x at 3/16" Ndle bedtime. Use as directed insulin 2019- Yes [id number] 22U inject 22 [facility] 1-06 Units ity of (TRESIBA 00:00: [place] 00 skin Medical U-100) 100 daily. Branch unit/mL (3 mL) InPn Insulin 2020- Yes [id number] 1{each} inject 1 [facility], 1-06 Each under ity o f Disposable, 00:00: the skin [place] (PEN 00 before Medical NEEDLE) 31 meals and Bran ch gauge x at 3/16" Ndle bedtime. Use as directed insulin 2020- Yes [id number] 22U inject 22 [facility] 1-06 Units ity of (TRESIBA 00:00: [place] 00 skin Medical U-100) 100 daily. Branch unit/mL (3 mL) InPn insulin 2020- Yes [id number] 5U inject [facility] 1-06 5-14 Units it y of 100 unit/mL 00:00: under the [place] InPn 00 skin 3 Medical (three) Branch times daily with meals. gabapentin 2020- Yes [id number] 300mg Take 1 [facility] 300 mg 1-06 capsule by ity of capsule 00:00: mouth 2 [place] (two) Medical times Branch daily. Insulin 2019- Yes [id number] 1{each} inject 1 [facility], 1-06 Each under ity o f Disposable, 00:00: the skin [place] (PEN 00 before Medical NEEDLE) 31 meals and Bran ch gauge x at 3/16" Ndle bedtime. Use as directed insulin 2019- Yes [id number] 22U inject 22 [facility] 1-06 Units ity of (TRESIBA 00:00: [place] 00 skin Medical U-100) 100 daily. Branch unit/mL (3 mL) InPn insulin 2019- Yes [id number] 5U inject [facility] 1-06 5-14 Units it y of 100 unit/mL 00:00: under the [place] In 00 skin 3 Medical (three) Branch times daily with meals. gabapentin 2019- Yes [id number] 300mg Take 1 [facility] 300 mg 1-06 capsule by ity of capsule 00:00: mouth 2 [place] (two) Medical times Branch daily. Insulin 2019- Yes [id number] 1{each} inject 1 [facility], 1-06 Each under ity o f Disposable, 00:00: the skin [place] (PEN 00 before Medical NEEDLE) 31 meals and Bran ch gauge x at 3/16" Ndle bedtime. Use as directed insulin 2019- Yes [id number] 22U inject 22 [facility] 1-06 Units ity of (TRESIBA 00:[place]: [place] 00 skin Medical U-100) 100 daily. Branch unit/mL (3 mL) InPn insulin 2019- Yes [id number] 5U inject [facility]pro-a[facility] 1-06 5-14 Units it y of 100 unit/mL 00:00: under the [place] InPn 00 skin 3 Medical (three) Branch times daily with meals. gabapentin 2019-08 Yes [id number] 300mg Take 1 [facility] 300 mg 1-06 capsule by ity of capsule 00:00: mouth 2 (two) Medical times Branch daily. Insulin 2019-08 Yes [id number] 1{each} inject 1 [facility], 1-06 Each under ity o f Disposable, 00:00: the skin [place] (PEN 00 before Medical NEEDLE) 31 meals and Bran ch gauge x at 3/16" Ndle bedtime. Use as directed insulin 2019-08 Yes [id number] 22U inject 22 [facility] 1-06 Units ity of (TRESIBA 00:00: [place] 00 skin Medical U-100) 100 daily. Branch unit/mL (3 mL) InPn insulin 2019-08 Yes [id number] 5U inject [facility] 1-06 5-14 Units it y of 100 unit/mL 00:00: under the [place] InPn 00 skin 3 Medical (three) Branch times daily with meals. gabapentin 2019-08 Yes [id number] 300mg Take 1 [facility] 300 mg 1-06 capsule by ity of capsule 00:00: mouth 2 [place] (two) Medical times Branch daily. Insulin 2019-08 Yes [id number] 1{each} inject 1 [facility], 1-06 Each under ity o f Disposable, 00:00: the skin [place] (PEN 00 before Medical NEEDLE) 31 meals and Bran ch gauge x at 3/16" Ndle bedtime. Use as directed insulin 2019- Yes [id number] 22U inject 22 [facility] 1-06 Units ity of (TRESIBA 00:00: [place] 00 skin Medical U-100) 100 daily. Branch unit/mL (3 mL) InPn insulin 2019- Yes [id number] 5U inject [facility] 1-06 5-14 Units it y of 100 unit/mL 00:00: under the [place] InPn 00 skin 3 Medical (three) Branch times daily with meals. gabapentin 2019-1 Yes [id number] 300mg Take 1 [facility] 300 mg 1-06 capsule by ity of capsule 00:00: mouth 2 [place] (two) Medical times Branch daily. Insulin 2019- Yes [id number] 1{each} inject 1 [facility], 1-06 Each under ity o f Disposable, 00:00: the skin [place] (PEN 00 before Medical NEEDLE) 31 meals and Bran ch gauge x at 3/16" Ndle bedtime. Use as directed insulin 2019- Yes [id number] 22U inject 22 [facility] 1-06 Units ity of (TRESIBA 00:00: [place] 00 skin Medical U-100) 100 daily. Branch unit/mL (3 mL) InPn insulin 2019-08 Yes [id number] 5U inject [facility] lispro-a[facility] 1-06 5-14 Units it y of 100 unit/mL 00:00: under the [place] In 00 skin 3 Medical (three) Branch times daily with meals. gabapentin 2019-08 Yes [id number] 300mg Take 1 [facility] 300 mg 1-06 capsule by ity of capsule 00:00: mouth 2 [place] (two) Medical times Branch daily. Insulin 2019-08 Yes [id number] 1{each} inject 1 [facility], 1-06 Each under ity o f Disposable, 00:00: the skin [place] (PEN 00 before Medical NEEDLE) 31 meals and Bran ch gauge x at 3/16" Ndle bedtime. Use as directed insulin 2019-08 Yes [id number] 22U inject 22 [facility] 1-06 Units ity of (TRESIBA 00:00: [place] 00 skin Medical U-100) 100 daily. Branch unit/mL (3 mL) InPn insulin 2019- Yes [id number] 5U inject [facility] lispro-aabc 1-06 5-14 Units it y of 100 unit/mL 00:00: under the [place] InPn 00 skin 3 Medical (three) Branch times daily with meals. gabapentin 2019- Yes [id number] 300mg Take 1 [facility] 300 mg 1-06 capsule by ity of capsule 00:00: mouth 2 [place] 00 (two) Medical times Branch daily. Insulin 2019- Yes [id number] 1{each} inject 1 [facility], 1-06 Each under ity o f Disposable, 00:00: the skin [place] (PEN 00 before Medical NEEDLE) 31 meals and Bran ch gauge x at 3/16" Ndle bedtime. Use as directed insulin 2019- Yes [id number] 22U inject 22 [facility] 1-06 Units ity of (TRESIBA 00:[place]: [place] 00 skin Medical U-100) 100 daily. Branch unit/mL (3 mL) InPn insulin 2019- Yes [id number] 5U inject [facility] lispro-aabc 1-06 5-14 Units it y of 100 unit/mL 00:00: under the [place] InPn 00 skin 3 Medical (three) Branch times daily with meals. gabapentin 2019- Yes [id number] 300mg Take 1 [facility] 300 mg 1-06 capsule by ity of capsule 00:00: mouth 2 (two) Medical times Branch daily. Insulin 2019- Yes [id number] 1{each} inject 1 [facility] [place], 1-06 Each under ity o f Disposable, 00:00: the skin [place] (PEN 00 before Medical NEEDLE) 31 meals and Bran ch gauge x at 3/16" Ndle bedtime. Use as directed insulin 2019- Yes [id number] 22U inject 22 [facility] 1-06 Units ity of (TRESIBA 00:[place]: [place] 00 skin Medical U-100) 100 daily. Branch unit/mL (3 mL) InPn insulin 2019- Yes [id number] 5U inject [facility] lispro-a[facility] 1-06 5-14 Units it y of 100 unit/mL 00:00: under the [place] InPn 00 skin 3 Medical (three) Branch times daily with meals. gabapentin 2019- Yes [id number] 300mg Take 1 [facility] 300 mg 1-06 capsule by ity of capsule 00:00: mouth 2 (two) Medical times Branch daily. Insulin 2019- Yes [id number] 1{each} inject 1 [facility] [place], 1-06 Each under ity o f Disposable, 00:00: the skin [place] (PEN 00 before Medical NEEDLE) 31 meals and Bran ch gauge x at 3/16" Ndle bedtime. Use as directed insulin 2019- Yes [id number] 22U inject 22 [facility] 1-06 Units ity of (TRESIBA 00:[place]: [place] 00 skin Medical U-100) 100 daily. Branch unit/mL (3 mL) InPn insulin 2020- Yes [id number] 5U inject [facility] lispro-aabc 1-06 5-14 Units it y of 100 unit/mL 00:00: under the [place] InPn 00 skin 3 Medical (three) Branch times daily with meals. gabapentin 2019- Yes [id number] 300mg Take 1 [facility] 300 mg 1-06 capsule by ity of capsule 00:00: mouth 2 [place] (two) Medical times Branch daily. Insulin 2019- Yes [id number] 1{each} inject 1 [facility], 1-06 Each under ity o f Disposable, 00:00: the skin [place] (PEN 00 before Medical NEEDLE) 31 meals and Bran ch gauge x at 3/16" Ndle bedtime. Use as directed insulin 2019- Yes [id number] 22U inject 22 [facility] 1-06 Units ity of (TRESIBA 00:[place]: [place] 00 skin Medical U-100) 100 daily. Branch unit/mL (3 mL) InPn insulin 2019- Yes [id number] 5U inject [facility]pro-aabc 1-06 5-14 Units it y of 100 unit/mL 00:00: under the [place] In 00 skin 3 Medical (three) Branch times daily with meals. gabapentin 2019- Yes [id number] 300mg Take 1 [facility] 300 mg 1-06 capsule by ity of capsule 00:00: mouth 2 [place] (two) Medical times Branch daily. Insulin 2019- Yes [id number] 1{each} inject 1 [facility], 1-06 Each under ity o f Disposable, 00:00: the skin [place] (PEN 00 before Medical NEEDLE) 31 meals and Bran ch gauge x at 3/16" Ndle bedtime. Use as directed insulin 2019- Yes [id number] 22U inject 22 [facility] 1-06 Units ity of (TRESIBA 00:[place]: [place] 00 skin Medical U-100) 100 daily. Branch unit/mL (3 mL) InPn insulin 2019- Yes [id number] 5U inject [facility]pro-a[facility] 1-06 5-14 Units it y of 100 unit/mL 00:00: under the [place] InPn 00 skin 3 Medical (three) Branch times daily with meals. gabapentin 2019-08 Yes [id number] 300mg Take 1 [facility] 300 mg 1-06 capsule by ity of capsule 00:00: mouth 2 (two) Medical times Branch daily. Insulin 2019-08 Yes [id number] 1{each} inject 1 [facility], 1-06 Each under ity o f Disposable, 00:00: the skin [place] (PEN 00 before Medical NEEDLE) 31 meals and Bran ch gauge x at 3/16" Ndle bedtime. Use as directed insulin 2019-08 Yes [id number] 22U inject 22 [facility] degludec 1-06 Units ity of ([place] skin Medical U-100) 100 daily. Branch unit/mL (3 mL) InPn insulin 2019-08 Yes [id number] 5U inject Uni vers lispro-aabc 1-06 5-14 Units it y of 100 unit/mL 00:00: [place] InPn 00 skin 3 Medical (three) Branch times daily with meals. gabapentin 2019-08 Yes [id number] 300mg Take 1 [facility] 300 mg 1-06 capsule by ity of capsule 00:00: mouth 2 [place] (two) Medical times Branch daily. Insulin 2019-08 Yes [id number] 1{each} inject 1 [facility] [place], 1-06 Each under ity o f Disposable, 00:00: [place] skin [place] (PEN 00 before Medical NEEDLE) 31 meals and Bran ch gauge x at 3/16" Ndle bedtime. Use as directed insulin 2019- Yes [id number] 22U inject 22 [facility] degludec 1-06 Units ity of ([place]ESIBA 00:[place] skin Medical U-100) 100 daily. Branch unit/mL (3 mL) InPn insulin 2019- Yes [id number] 5U inject Uni vers lispro-aabc 1-06 5-14 Units it y of 100 unit/mL 00:00: [place] the [place] InPn 00 skin 3 Medical (three) Branch times daily with meals. gabapentin 2019- Yes [id number] 300mg Take 1 [facility] 300 mg 1-06 capsule by ity of capsule 00:00: mouth 2 [place] 00 (two) Medical times Branch daily. Insulin 2020- Yes [id number] 1{each} inject 1 [facility] [place], 1-06 Each under ity o f Disposable, 00:00: [place] skin [place] (PEN 00 before Medical NEEDLE) 31 meals and Bran ch gauge x at 3/16" Ndle bedtime. Use as directed insulin 2019- Yes [id number] 22U inject 22 [facility] degludec 1-06 Units ity of ([place]ESIB[place] 00:[place] skin Medical U-100) 100 daily. Branch unit/mL (3 mL) InPn insulin 2019- Yes [id number] 5U inject Uni vers lispro-aabc 1-06 5-14 Units it y of 100 unit/mL 00:00: under the [place] In 00 skin 3 Medical (three) Branch times daily with meals. gabapentin 2019-08 Yes [id number] 300mg Take 1 [facility] 300 mg 1-06 capsule by ity of capsule 00:00: mouth 2 [place] (two) Medical times Branch daily. Insulin 2019- Yes [id number] 1{each} inject 1 [facility] [place], 1-06 Each under ity o f Disposable, 00:00: [place] (PEN 00 before Medical NEEDLE) 31 meals and Bran ch gauge x at 3/16" Ndle bedtime. Use as directed insulin 2019- Yes [id number] 22U inject 22 [facility] de[facility]udec 1-06 Units ity of ([place]IB[place] 00:[place] skin Medical U-100) 100 daily. Branch unit/mL (3 mL) InPn insulin 2019- Yes [id number] 5U inject [facility] vers lispro-aabc 1-06 5-14 Units it y of 100 unit/mL 00:00: under the [place] In 00 skin 3 Medical (three) Branch times daily with meals. gabapentin 2019- Yes [id number] 300mg Take 1 [facility] 300 mg 1-06 capsule by ity of capsule 00:00: mouth 2 [place] 00 (two) Medical times Branch daily. Insulin 2019- Yes [id number] 1{each} inject 1 [facility] [place], 1-06 Each under ity o f Disposable, 00:00: [place] (PEN 00 before Medical NEEDLE) 31 meals and Bran ch gauge x at 3/16" Ndle bedtime. Use as directed insulin 2019- Yes [id number] 22U inject 22 [facility] degludec 1-06 Units ity of ([place] 00:[place] skin Medical U-100) 100 daily. Branch unit/mL (3 mL) InPn insulin 2019- Yes [id number] 5U inject Uni vers lispro-aabc 1-06 5-14 Units it y of 100 unit/mL 00:00: under the [place] InPn 00 skin 3 Medical (three) Branch times daily with meals. gabapentin 2019-08 Yes [id number] 300mg Take 1 [facility] 300 mg 1-06 capsule by ity of capsule 00:00: mouth 2 (two) Medical times Branch daily. Insulin 2019- Yes [id number] 1{each} inject 1 [facility] [place], 1-06 Each under ity o f Disposable, 00:00: the skin [place] (PEN 00 before Medical NEEDLE) 31 meals and Bran ch gauge x at 3/16" Ndle bedtime. Use as directed insulin 2019- Yes [id number] 22U inject 22 [facility] degludec 1-06 Units ity of (TRESIBA 00:[place] skin Medical U-100) 100 daily. Branch unit/mL (3 mL) InPn insulin 2019- Yes [id number] 5U inject Uni vers lispro-aabc 1-06 5-14 Units it y of 100 unit/mL 00:00: under the [place] InPn 00 skin 3 Medical (three) Branch times daily with meals. gabapentin 2019- Yes [id number] 300mg Take 1 [facility] 300 mg 1-06 capsule by ity of capsule 00:00: mouth 2 (two) Medical times Branch daily. insulin 2019-08 Yes [id number] 22U inject 22 [facility] degludec 1-06 Units ity of (TRESIBA 00:[place] skin Medical U-100) 100 daily. Branch unit/mL (3 mL) InPn Insulin 2019- Yes [id number] 1{each} inject 1 [facility] [place], 1-06 Each under ity o f Disposable, 00:00: the skin [place] (PEN 00 before Medical NEEDLE) 31 meals and Bran ch gauge x at 3/16" Ndle bedtime. Use as directed insulin 2019-08 Yes [id number] 5U inject Uni vers lispro-aabc 1-06 5-14 Units it y of 100 unit/mL 00:00: under the [place] InPn 00 skin 3 Medical (three) Branch times daily with meals. gabapentin 2019-08 Yes [id number] 300mg Take 1 [facility] 300 mg 1-06 capsule by ity of capsule 00:00: mouth 2 [place] 00 (two) Medical times Branch daily. Insulin 2019-08 Yes [id number] 1{each} inject 1 [facility] [place], 1-06 Each under ity o f Disposable, 00:00: the skin [place] (PEN 00 before Medical NEEDLE) 31 meals and Bran ch gauge x at 3/16" Ndle bedtime. Use as directed insulin 2019-08 Yes [id number] 22U inject 22 [facility] degludec 1-06 Units ity of (TRESIBA 00:[facility] Medical U-100) 100 daily. Branch unit/mL (3 mL) InPn insulin 2019-08 Yes [id number] 5U inject Uni vers lispro-aabc 1-06 5-14 Units it y of 100 unit/mL 00:00: [place] 00 skin 3 Medical (three) Branch times daily with meals. Insulin 2019-08 Yes [id number] 1{each} inject 1 [facility] [place], 1-06 Each under ity o f Disposable, 00:00: the skin [place] (PEN 00 before Medical NEEDLE) 31 meals and Bran ch gauge x at 3/16" Ndle bedtime. Use as directed insulin 2019-08- No [id number] 5U inject Un [place] lispro-aabc 1-06 10-13 5-14 Units i ty of 100 unit/mL 00:00: 00:00 under the [place] In 00 :00 skin 3 Medical (three) Branch times daily with meals. insulin 2019-08- No [id number] 5U inject Un [place] lispro-aabc 1-06 10-13 5-14 Units i ty of 100 unit/mL 00:00: 00:00 under the [place] In 00 :00 skin 3 Medical (three) Branch times daily with meals. insulin 2019-08- No [id number] 5U inject Un [place] lispro-aabc 08-20-13 5-14 Units i ty of 100 unit/mL 00:00: 00:00 under the [place] In 00 :00 skin 3 Medical (three) Branch times daily with meals. insulin 2019-08- No [id number] 5U inject Un [place] lispro-aabc 08-20-13 5-14 Units i ty of 100 unit/mL 00:00: 00:00 under the [place] In 00 :00 skin 3 Medical (three) Branch times daily with meals. gabapentin 2019-08- No [id number] 300mg Take 1 [facility] 300 mg 08-20 capsule by ity of capsule 00:00: 00:00 mouth 2 [place] 00 :00 (two) Medical times Branch daily. gabapentin 2019-08- No [id number] 300mg Take 1 [facility] 300 mg 08-20 capsule by ity of capsule 00:00: 00:00 mouth 2 [place] 00 :00 (two) Medical times Branch daily. gabapentin 2019-083- No [id number] 300mg Take 1 [facility] 300 mg 08-20 capsule by ity of capsule 00:00: 00:00 mouth 2 [place] 00 :00 (two) Medical times Branch daily. gabapentin 2019-08- No [id number] 300mg Take 1 [facility] 300 mg 08-20-11 capsule by ity of capsule 00:00: 00:00 mouth 2 [place] 00 :00 (two) Medical times Branch daily. gabapentin 2019-083- No [id number] 300mg Take 1 [facility] 300 mg 08-20 capsule by ity of capsule 00:00: 00:00 mouth 2 [place] 00 :00 (two) Medical times Branch daily. No known 2018-0 No No known [facility] 4[facility] [facility] No known 2018-0 No No known [facility] di medications 4-[address] [facility] l Immunizations Ordered Immunization Filled Date Status Comments Sour ce Name Immunization Name Meningococcal 2007-01-05 Completed [facility] 00:00:00 [facility] (groups A, C, Y and Branc h W-135) conjugate vaccine (MCV4P) TDAP 2007-01-05 Completed [facility] of 00:00:00 [facility] Meningococcal 2007-01-05 Completed University of Polysaccharide 00:00:00 [place] [facility] (groups A, C, Y and Branc h W-135) conjugate vaccine (MCV4P) TDAP 2007-01-05 Completed [facility] of 00:00:00 [facility] Meningococcal 2007-01-05 Completed University of Polysaccharide 00:00:00 [place] [facility] (groups A, C, Y and Branc h W-135) conjugate vaccine (MCV4P) TDAP 2007-01-05 Completed University of 00:00:00 [facility] Meningococcal 2007-01-05 Completed University of Polysaccharide 00:00:00 [place] [facility] (groups A, C, Y and Branc h W-135) conjugate vaccine (MCV4P) TDAP 2007-01-05 Completed University of 00:00:00 [facility] Meningococcal 2007-01-05 Completed University of Polysaccharide 00:00:00 [place] [facility] (groups A, C, Y and Branc h W-135) conjugate vaccine (MCV4P) TDAP 2007-01-05 Completed University of 00:00:00 [facility] Meningococcal 2007-01-05 Completed University of Polysaccharide 00:00:00 [place] [facility] (groups A, C, Y and Branc h W-135) conjugate vaccine (MCV4P) Meningococcal 2007-01-05 Completed University of Polysaccharide 00:00:00 [place] [facility] (groups A, C, Y and Branc h W-135) conjugate vaccine (MCV4P) TDAP 2007-01-05 Completed University of 00:00:00 [facility] TDAP 2007-01-05 Completed University of 00:00:00 [facility] Meningococcal 2007-01-05 Completed University of Polysaccharide 00:00:00 [place] [facility] (groups A, C, Y and Branc h W-135) conjugate vaccine (MCV4P) TDAP 2007-01-05 Completed University of 00:00:00 [facility] Meningococcal 2007-01-05 Completed University of Polysaccharide 00:00:00 [place] [facility] (groups A, C, Y and Branc h W-135) conjugate vaccine (MCV4P) TDAP 2007-01-05 Completed University of 00:00:00 [facility] Meningococcal 2007-01-05 Completed University of Polysaccharide 00:00:00 [place] [facility] (groups A, C, Y and Branc h W-135) conjugate vaccine (MCV4P) TDAP 2007-01-05 Completed University of 00:00:00 [facility] Meningococcal 2007-01-05 Completed University of Polysaccharide 00:00:00 [place] [facility] (groups A, C, Y and Branc h W-135) conjugate vaccine (MCV4P) TDAP 2007-01-05 Completed University of 00:00:00 [facility] Meningococcal 2007-01-05 Completed University of Polysaccharide 00:00:00 [place] [facility] (groups A, C, Y and Branc h W-135) conjugate vaccine (MCV4P) TDAP 2007-01-05 Completed University of 00:00:00 [facility] Meningococcal 2007-01-05 Completed University of Polysaccharide 00:00:00 [place] [facility] (groups A, C, Y and Branc h W-135) conjugate vaccine (MCV4P) TDAP 2007-01-05 Completed University of 00:00:00 [facility] Meningococcal 2007-01-05 Completed University of Polysaccharide 00:00:00 [place] [facility] (groups A, C, Y and Branc h W-135) conjugate vaccine (MCV4P) TDAP 2007-01-05 Completed University of 00:00:00 [facility] Meningococcal 2007-01-05 Completed University of Polysaccharide 00:00:00 [place] [facility] (groups A, C, Y and Branc h W-135) conjugate vaccine (MCV4P) TDAP 2007-01-05 Completed University of 00:00:00 [facility] Meningococcal 2007-01-05 Completed University of Polysaccharide 00:00:00 [place] [facility] (groups A, C, Y and Branc h W-135) conjugate vaccine (MCV4P) TDAP 2007-01-05 Completed University of 00:00:00 [facility] Meningococcal 2007-01-05 Completed University of Polysaccharide 00:00:00 [place] [facility] (groups A, C, Y and Branc h W-135) conjugate vaccine (MCV4P) TDAP 2007-01-05 Completed University of 00:00:00 [facility] Meningococcal 2007-01-05 Completed University of Polysaccharide 00:00:00 [place] [facility] (groups A, C, Y and Branc h W-135) conjugate vaccine (MCV4P) TDAP 2007-01-05 Completed University of 00:00:00 [facility] Meningococcal 2007-01-05 Completed University of Polysaccharide 00:00:00 [place] [facility] (groups A, C, Y and Branc h W-135) conjugate vaccine (MCV4P) TDAP 2007-01-05 Completed University of 00:00:00 [facility] Meningococcal 2007-01-05 Completed University of Polysaccharide 00:00:00 [place] [facility] (groups A, C, Y and Branc h W-135) conjugate vaccine (MCV4P) TDAP 2007-01-05 Completed University of 00:00:00 [facility] Meningococcal 2007-01-05 Completed University of Polysaccharide 00:00:00 [place] [facility] (groups A, C, Y and Branc h W-135) conjugate vaccine (MCV4P) TDAP 2007-01-05 Completed University of 00:00:00 [facility] Meningococcal 2007-01-05 Completed University of Polysaccharide 00:00:00 [place] [facility] (groups A, C, Y and Branc h W-135) conjugate vaccine (MCV4P) TDAP 2007-01-05 Completed University of 00:00:00 [facility] Meningococcal 2007-01-05 Completed University of Polysaccharide 00:00:00 [place] [facility] (groups A, C, Y and Branc h W-135) conjugate vaccine (MCV4P) TDAP 2007-01-05 Completed University of 00:00:00 [facility] Meningococcal 2007-01-05 Completed University of Polysaccharide 00:00:00 [place] [facility] (groups A, C, Y and Branc h W-135) conjugate vaccine (MCV4P) TDAP 2007-01-05 Completed University of 00:00:00 [facility] Meningococcal 2007-01-05 Completed University of Polysaccharide 00:00:00 [place] [facility] (groups A, C, Y and Branc h W-135) conjugate vaccine (MCV4P) TDAP 2007-01-05 Completed University of 00:00:00 [facility] Meningococcal 2007-01-05 Completed University of Polysaccharide 00:00:00 [place] [facility] (groups A, C, Y and Branc h W-135) conjugate vaccine (MCV4P) TDAP 2007-01-05 Completed University of 00:00:00 [facility] Meningococcal 2007-01-05 Completed University of Polysaccharide 00:00:00 [place] [facility] (groups A, C, Y and Branc h W-135) conjugate vaccine (MCV4P) TDAP 2007-01-05 Completed University of 00:00:00 [facility] Meningococcal 2007-01-05 Completed University of Polysaccharide 00:00:00 [place] [facility] (groups A, C, Y and Branc h W-135) conjugate vaccine (MCV4P) TDAP 2007-01-05 Completed University of 00:00:00 [facility] Meningococcal 2007-01-05 Completed University of Polysaccharide 00:00:00 [place] [facility] (groups A, C, Y and Branc h W-135) conjugate vaccine (MCV4P) TDAP 2007-01-05 Completed University of 00:00:00 [facility] Meningococcal 2007-01-05 Completed University of Polysaccharide 00:00:00 [place] [facility] (groups A, C, Y and Branc h W-135) conjugate vaccine (MCV4P) TDAP 2007-01-05 Completed University of 00:00:00 [facility] Meningococcal 2007-01-05 Completed University of Polysaccharide 00:00:00 [place] [facility] (groups A, C, Y and Branc h W-135) conjugate vaccine (MCV4P) TDAP 2007-01-05 Completed University of 00:00:00 [facility] Meningococcal 2007-01-05 Completed University of Polysaccharide 00:00:00 [place] [facility] (groups A, C, Y and Branc h W-135) conjugate vaccine (MCV4P) TDAP 2007-01-05 Completed University of 00:00:00 [facility] Meningococcal 2007-01-05 Completed University of Polysaccharide 00:00:00 [place] [facility] (groups A, C, Y and Branc h W-135) conjugate vaccine (MCV4P) TDAP 2007-01-05 Completed University of 00:00:00 [facility] Meningococcal 2007-01-05 Completed University of Polysaccharide 00:00:00 [place] [facility] (groups A, C, Y and Branc h W-135) conjugate vaccine (MCV4P) TDAP 2007-01-05 Completed University of 00:00:00 [facility] Meningococcal 2007-01-05 Completed University of Polysaccharide 00:00:00 [place] [facility] (groups A, C, Y and Branc h W-135) conjugate vaccine (MCV4P) TDAP 2007-01-05 Completed University of 00:00:00 [facility] Meningococcal 2007-01-05 Completed University of Polysaccharide 00:00:00 [place] [facility] (groups A, C, Y and Branc h W-135) conjugate vaccine (MCV4P) TDAP 2007-01-05 Completed University of 00:00:00 [facility] Meningococcal 2007-01-05 Completed University of Polysaccharide 00:00:00 [place] [facility] (groups A, C, Y and Branc h W-135) conjugate vaccine (MCV4P) TDAP 2007-01-05 Completed University of 00:00:00 [facility] Meningococcal 2007-01-05 Completed University of Polysaccharide 00:00:00 [place] [facility] (groups A, C, Y and Branc h W-135) conjugate vaccine (MCV4P) TDAP 2007-01-05 Completed University of 00:00:00 [facility] Influenza Virus 2005-06-29 Completed Universit y of Vaccine - Whole 00:00:00 [facility] Influenza Virus 2005-06-29 Completed Universit y of Vaccine - Whole 00:00:00 [facility] HEPATITIS A 2003-05-16 Completed University of 00:00:00 [facility] Hep B, Adol or Pedi 2003-05-16 Completed Unive rsity of Dosage 00:00:00 [facility] TD, NOS 2003-05-16 Completed University of 00:00:00 [facility] HEPATITIS A 2003-05-16 Completed University of 00:00:00 [facility] Hep B, Adol or Pedi 2003-05-16 Completed Unive rsity of Dosage 00:00:00 [facility] TD, NOS 2003-05-16 Completed University of 00:00:00 [facility] Hep B, Adol or Pedi 2002-12-24 Completed Unive rsity of Dosage 00:00:00 [facility] Hep B, Adol or Pedi 2002-12-24 Completed Unive rsity of Dosage 00:00:00 [facility] HEPATITIS A 2002-11-22 Completed University of 00:00:00 [facility] Hep B, Adol or Pedi 2002-11-22 Completed Unive rsity of Dosage 00:00:00 [facility] HEPATITIS A 2002-11-22 Completed University of 00:00:00 [facility] Hep B, Adol or Pedi 2002-11-22 Completed Unive rsity of Dosage 00:00:00 [place] [facility] MMR 1995-05-13 Completed University of 00:00:00 [place] [facility] Polio (IPV/OPV) 1995-05-13 Completed Universit y of 00:00:00 [place] [facility] DTAP 1995-05-13 Completed University of 00:00:00 [place] [facility] DTAP 1995-05-13 Completed University of 00:00:00 [place] [facility] DTP 1995-05-13 Completed University of 00:00:00 [place] [facility] MMR 1995-05-13 Completed University of 00:00:00 [place] [facility] Polio (IPV/OPV) 1995-05-13 Completed Universit y of 00:00:00 [place] [facility] DTAP 1995-05-13 Completed University of 00:00:00 [place] [facility] DTP 1995-05-13 Completed University of 00:00:00 [place] [facility] DTP 1995-05-13 Completed University of 00:00:00 [facility] MMR 1995-05-13 Completed University of 00:00:00 [place] [facility] Polio (IPV/OPV) 1995-05-13 Completed Universit y of 00:00:00 [place] [facility] DTAP 1995-05-13 Completed University of 00:00:00 [facility] Branch DTP 1995-05-13 Completed University of 00:00:00 [facility] Branch MMR 1995-05-13 Completed University of 00:00:00 [place] [facility] Polio (IPV/OPV) 1995-05-13 Completed Universit y of 00:00:00 [facility] Branch MMR 1995-05-13 Completed University of 00:00:00 [place] [facility] DTAP 1995-05-13 Completed University of 00:00:00 [place] [facility] DTP 1995-05-13 Completed University of 00:00:00 [place] [facility] MMR 1995-05-13 Completed University of 00:00:00 [place] [facility] Polio (IPV/OPV) 1995-05-13 Completed Universit y of 00:00:00 [place] [facility] DTAP 1995-05-13 Completed University of 00:00:00 [place] [facility] Polio (IPV/OPV) 1995-05-13 Completed Universit y of 00:00:00 [place] [facility] DTP 1995-05-13 Completed University of 00:00:00 [place] [facility] MMR 1995-05-13 Completed University of 00:00:00 [place] [facility] Polio (IPV/OPV) 1995-05-13 Completed Universit y of 00:00:00 [place] [facility] DTAP 1995-05-13 Completed University of 00:00:00 [place] [facility] DTP 1995-05-13 Completed University of 00:00:00 [place] [facility] MMR 1995-05-13 Completed University of 00:00:00 [place] [facility] Polio (IPV/OPV) 1995-05-13 Completed Universit y of 00:00:00 [place] [facility] DTAP 1995-05-13 Completed University of 00:00:00 [place] [facility] DTP 1995-05-13 Completed University of 00:00:00 [facility] Branch MMR 1995-05-13 Completed University of 00:00:00 [place] [facility] Polio (IPV/OPV) 1995-05-13 Completed Universit y of 00:00:00 [facility] Branch DTAP 1995-05-13 Completed University of 00:00:00 [facility] Branch DTP 1995-05-13 Completed University of 00:00:00 [facility] Branch MMR 1995-05-13 Completed University of 00:00:00 [place] [facility] Polio (IPV/OPV) 1995-05-13 Completed Universit y of 00:00:00 [facility] Branch DTAP 1995-05-13 Completed University of 00:00:00 [facility] Branch DTP 1995-05-13 Completed University of 00:00:00 [facility] Branch MMR 1995-05-13 Completed University of 00:00:00 [place] [facility] Polio (IPV/OPV) 1995-05-13 Completed Universit y of 00:00:00 [facility] Branch DTAP 1995-05-13 Completed University of 00:00:00 [place] [facility] DTP 1995-05-13 Completed University of 00:00:00 [place] [facility] MMR 1995-05-13 Completed University of 00:00:00 [place] [facility] Polio (IPV/OPV) 1995-05-13 Completed Universit y of 00:00:00 [place] [facility] DTAP 1995-05-13 Completed University of 00:00:00 [place] [facility] DTP 1995-05-13 Completed University of 00:00:00 [facility] Branch MMR 1995-05-13 Completed University of 00:00:00 [place] [facility] Polio (IPV/OPV) 1995-05-13 Completed Universit y of 00:00:00 [place] [facility] DTAP 1995-05-13 Completed University of 00:00:00 [facility] Branch DTP 1995-05-13 Completed University of 00:00:00 [facility] Branch MMR 1995-05-13 Completed University of 00:00:00 [place] [facility] DTAP 1995-05-13 Completed University of 00:00:00 [facility] Polio (IPV/OPV) 1995-05-13 Completed Universit y of 00:00:00 [facility] Branch DTAP 1995-05-13 Completed University of 00:00:00 [facility] DTP 1995-05-13 Completed University of 00:00:00 [facility] Branch MMR 1995-05-13 Completed University of 00:00:00 [facility] Polio (IPV/OPV) 1995-05-13 Completed Universit y of 00:00:00 [facility] DTP 1995-05-13 Completed University of 00:00:00 [facility] DTAP 1995-05-13 Completed University of 00:00:00 [facility] DTP 1995-05-13 Completed University of 00:00:00 [facility] MMR 1995-05-13 Completed University of 00:00:00 [facility] Polio (IPV/OPV) 1995-05-13 Completed Universit y of 00:00:00 [facility] DTAP 1995-05-13 Completed University of 00:00:00 [facility] DTP 1995-05-13 Completed University of 00:00:00 [facility] MMR 1995-05-13 Completed University of 00:00:00 [facility] Polio (IPV/OPV) 1995-05-13 Completed Universit y of 00:00:00 [facility] MMR 1995-05-13 Completed University of 00:00:00 [facility] DTAP 1995-05-13 Completed University of 00:00:00 [facility] DTP 1995-05-13 Completed University of 00:00:00 [facility] MMR 1995-05-13 Completed University of 00:00:00 [facility] Polio (IPV/OPV) 1995-05-13 Completed Universit y of 00:00:00 [facility] Polio (IPV/OPV) 1995-05-13 Completed Universit y of 00:00:00 [facility] DTAP 1995-05-13 Completed University of 00:00:00 [facility] DTP 1995-05-13 Completed [facility] 00:00:00 [facility] MMR 1995-05-13 Completed [facility] 00:00:00 [facility] Polio (IPV/OPV) 1995-05-13 Completed [facility] 00:00:00 [facility] DTAP 1995-05-13 Completed [facility] 00:00:00 [facility] DTP 1995-05-13 Completed [facility] 00:00:00 [facility] MMR 1995-05-13 Completed [facility] 00:00:00 [facility] Polio (IPV/OPV) 1995-05-13 Completed [facility] 00:00:00 [facility] DTAP 1995-05-13 Completed [facility] 00:00:00 [facility] DTP 1995-05-13 Completed [facility] 00:00:00 [facility] MMR 1995-05-13 Completed [facility] 00:00:00 [facility] Polio (IPV/OPV) 1995-05-13 Completed [facility] 00:00:00 [facility] DTAP 1995-05-13 Completed [facility] 00:00:00 [facility] DTP 1995-05-13 Completed [facility] 00:00:00 [facility] MMR 1995-05-13 Completed [facility] 00:00:00 [facility] Polio (IPV/OPV) 1995-05-13 Completed [facility] 00:00:00 [facility] DTAP 1995-05-13 Completed [facility] 00:00:00 [facility] DTAP 1995-05-13 Completed [facility] 00:00:00 [facility] DTP 1995-05-13 Completed [facility] 00:00:00 [facility] MMR 1995-05-13 Completed [facility] 00:00:00 [facility] Polio (IPV/OPV) 1995-05-13 Completed [facility] 00:00:00 [facility] DTP 1995-05-13 Completed [facility] 00:00:00 [facility] DTAP 1995-05-13 Completed [facility] 00:00:00 [facility] MMR 1995-05-13 Completed [facility] 00:00:00 [facility] DTP 1995-05-13 Completed [facility] 00:00:00 [facility] MMR 1995-05-13 Completed [facility] 00:00:00 [facility] Polio (IPV/OPV) 1995-05-13 Completed [facility] 00:00:00 [facility] DTAP 1995-05-13 Completed [facility] 00:00:00 [facility] DTP 1995-05-13 Completed [facility] 00:00:00 [facility] Polio (IPV/OPV) 1995-05-13 Completed [facility] 00:00:00 [facility] MMR 1995-05-13 Completed [facility] 00:00:00 [facility] Polio (IPV/OPV) 1995-05-13 Completed [facility] 00:00:00 [facility] DTAP 1995-05-13 Completed [facility] 00:00:00 [facility] DTP 1995-05-13 Completed [facility] 00:00:00 [facility] MMR 1995-05-13 Completed [facility] 00:00:00 [facility] Polio (IPV/OPV) 1995-05-13 Completed [facility] 00:00:00 [facility] DTAP 1995-05-13 Completed [facility] 00:00:00 [facility] DTP 1995-05-13 Completed [facility] 00:00:00 [facility] MMR 1995-05-13 Completed [facility] 00:00:00 [facility] Polio (IPV/OPV) 1995-05-13 Completed [facility] 00:00:00 [facility] DTAP 1995-05-13 Completed [facility] 00:00:00 [facility] DTP 1995-05-13 Completed [facility] 00:00:00 [facility] MMR 1995-05-13 Completed [facility] 00:00:00 [facility] Polio (IPV/OPV) 1995-05-13 Completed [facility] 00:00:00 [facility] DTAP 1995-05-13 Completed [facility] 00:00:00 [facility] DTAP 1995-05-13 Completed [facility] 00:00:00 [facility] DTP 1995-05-13 Completed [facility] 00:00:00 [facility] MMR 1995-05-13 Completed [facility] 00:00:00 [facility] Polio (IPV/OPV) 1995-05-13 Completed [facility] 00:00:00 [facility] DTP 1995-05-13 Completed [facility] 00:00:00 [facility] DTAP 1995-05-13 Completed [facility] 00:00:00 [facility] DTP 1995-05-13 Completed [facility] 00:00:00 [facility] MMR 1995-05-13 Completed [facility] 00:00:00 [facility] Polio (IPV/OPV) 1995-05-13 Completed [facility] 00:00:00 [facility] DTAP 1995-05-13 Completed [facility] 00:00:00 [facility] DTP 1995-05-13 Completed [facility] 00:00:00 [facility] MMR 1995-05-13 Completed [facility] 00:00:00 [facility] MMR 1995-05-13 Completed [facility] 00:00:00 [facility] Polio (IPV/OPV) 1995-05-13 Completed [facility] 00:00:00 [facility] DTAP 1995-05-13 Completed [facility] 00:00:00 [facility] DTP 1995-05-13 Completed [facility] 00:00:00 [facility] MMR 1995-05-13 Completed [facility] 00:00:00 [facility] Polio (IPV/OPV) 1995-05-13 Completed [facility] 00:00:00 [facility] Polio (IPV/OPV) 1995-05-13 Completed [facility] 00:00:00 [facility] DTAP 1995-05-13 Completed [facility] 00:00:00 [facility] DTP 1995-05-13 Completed [facility] 00:00:00 [facility] MMR 1995-05-13 Completed [facility] 00:00:00 [facility] Polio (IPV/OPV) 1995-05-13 Completed [facility] 00:00:00 [facility] DTAP 1995-05-13 Completed [facility] 00:00:00 [facility] DTP 1995-05-13 Completed [facility] 00:00:00 [facility] MMR 1995-05-13 Completed [facility] 00:00:00 [facility] Polio (IPV/OPV) 1995-05-13 Completed [facility] 00:00:00 [facility] DTAP 1995-05-13 Completed [facility] 00:00:00 [facility] DTP 1995-05-13 Completed [facility] 00:00:00 [facility] MMR 1995-05-13 Completed [facility] 00:00:00 [facility] Polio (IPV/OPV) 1995-05-13 Completed [facility] 00:00:00 [facility] DTAP 1995-05-13 Completed [facility] 00:00:00 [facility] DTP 1995-05-13 Completed [facility] 00:00:00 [facility] MMR 1992-11-05 Completed [facility] 00:00:00 [facility] Polio (IPV/OPV) 1992-11-05 Completed [facility] 00:00:00 [facility] DTP 1992-11-05 Completed [facility] 00:00:00 [facility] HIB 4 Dose Schedule 1992-11-05 Completed [facility] 00:00:00 [facility] MMR 1992-11-05 Completed [facility] 00:00:00 [facility] Polio (IPV/OPV) 1992-11-05 Completed [facility] 00:00:00 [facility] DTP 1992-11-05 Completed [facility] 00:00:00 [facility] DTP 1992-11-05 Completed [facility] 00:00:00 [facility] HIB 4 Dose Schedule 1992-11-05 Completed [facility] 00:00:00 [facility] MMR 1992-11-05 Completed [facility] 00:00:00 [facility] Polio (IPV/OPV) 1992-11-05 Completed [facility] 00:00:00 [facility] DTP 1992-11-05 Completed [facility] 00:00:00 [facility] HIB 4 Dose Schedule 1992-11-05 Completed [facility] 00:00:00 [facility] HIB 4 Dose Schedule 1992-11-05 Completed [facility] 00:00:00 [facility] MMR 1992-11-05 Completed [facility] 00:00:00 [facility] Polio (IPV/OPV) 1992-11-05 Completed [facility] 00:00:00 [facility] MMR 1992-11-05 Completed [facility] 00:00:00 [facility] DTP 1992-11-05 Completed [facility] 00:00:00 [facility] HIB 4 Dose Schedule 1992-11-05 Completed [facility] 00:00:00 [facility] MMR 1992-11-05 Completed [facility] 00:00:00 [facility] Polio (IPV/OPV) 1992-11-05 Completed [facility] 00:00:00 [facility] Polio (IPV/OPV) 1992-11-05 Completed [facility] 00:00:00 [facility] DTP 1992-11-05 Completed [facility] 00:00:00 [facility] HIB 4 Dose Schedule 1992-11-05 Completed [facility] 00:00:00 [facility] MMR 1992-11-05 Completed [facility] 00:00:00 [facility] Polio (IPV/OPV) 1992-11-05 Completed [facility] 00:00:00 [facility] DTP 1992-11-05 Completed [facility] 00:00:00 [facility] HIB 4 Dose Schedule 1992-11-05 Completed [facility] 00:00:00 [facility] MMR 1992-11-05 Completed [facility] 00:00:00 [facility] Polio (IPV/OPV) 1992-11-05 Completed [facility] 00:00:00 [facility] DTP 1992-11-05 Completed [facility] 00:00:00 [facility] HIB 4 Dose Schedule 1992-11-05 Completed [facility] 00:00:00 [facility] MMR 1992-11-05 Completed [facility] 00:00:00 [facility] Polio (IPV/OPV) 1992-11-05 Completed [facility] 00:00:00 [facility] DTP 1992-11-05 Completed [facility] 00:00:00 [facility] HIB 4 Dose Schedule 1992-11-05 Completed [facility] 00:00:00 [facility] MMR 1992-11-05 Completed [facility] 00:00:00 [facility] Polio (IPV/OPV) 1992-11-05 Completed [facility] 00:00:00 [facility] DTP 1992-11-05 Completed [facility] 00:00:00 [facility] HIB 4 Dose Schedule 1992-11-05 Completed [facility] 00:00:00 [facility] MMR 1992-11-05 Completed [facility] 00:00:00 [facility] Polio (IPV/OPV) 1992-11-05 Completed [facility] 00:00:00 [facility] DTP 1992-11-05 Completed [facility] 00:00:00 [facility] HIB 4 Dose Schedule 1992-11-05 Completed [facility] 00:00:00 [facility] MMR 1992-11-05 Completed [facility] 00:00:00 [facility] Polio (IPV/OPV) 1992-11-05 Completed [facility] 00:00:00 [facility] DTP 1992-11-05 Completed [facility] 00:00:00 [facility] HIB 4 Dose Schedule 1992-11-05 Completed [facility] 00:00:00 [facility] MMR 1992-11-05 Completed [facility] 00:00:00 [facility] Polio (IPV/OPV) 1992-11-05 Completed [facility] 00:00:00 [facility] DTP 1992-11-05 Completed [facility] 00:00:00 [facility] HIB 4 Dose Schedule 1992-11-05 Completed [facility] 00:00:00 [facility] MMR 1992-11-05 Completed [facility] 00:00:00 [facility] Polio (IPV/OPV) 1992-11-05 Completed [facility] 00:00:00 [facility] DTP 1992-11-05 Completed [facility] 00:00:00 [facility] HIB 4 Dose Schedule 1992-11-05 Completed [facility] 00:00:00 [facility] MMR 1992-11-05 Completed [facility] 00:00:00 [facility] Polio (IPV/OPV) 1992-11-05 Completed [facility] 00:00:00 [facility] DTP 1992-11-05 Completed [facility] 00:00:00 [facility] DTP 1992-11-05 Completed [facility] 00:00:00 [facility] HIB 4 Dose Schedule 1992-11-05 Completed [facility] 00:00:00 [facility] MMR 1992-11-05 Completed [facility] 00:00:00 [facility] Polio (IPV/OPV) 1992-11-05 Completed [facility] 00:00:00 [facility] DTP 1992-11-05 Completed [facility] 00:00:00 [facility] HIB 4 Dose Schedule 1992-11-05 Completed [facility] 00:00:00 [facility] HIB 4 Dose Schedule 1992-11-05 Completed [facility] 00:00:00 [facility] MMR 1992-11-05 Completed [facility] 00:00:00 [facility] Polio (IPV/OPV) 1992-11-05 Completed [facility] 00:00:00 [facility] MMR 1992-11-05 Completed [facility] 00:00:00 [facility] DTP 1992-11-05 Completed [facility] 00:00:00 [facility] HIB 4 Dose Schedule 1992-11-05 Completed [facility] 00:00:00 [facility] MMR 1992-11-05 Completed [facility] 00:00:00 [facility] Polio (IPV/OPV) 1992-11-05 Completed [facility] 00:00:00 [facility] Polio (IPV/OPV) 1992-11-05 Completed [facility] 00:00:00 [facility] DTP 1992-11-05 Completed [facility] 00:00:00 [facility] HIB 4 Dose Schedule 1992-11-05 Completed [facility] 00:00:00 [facility] MMR 1992-11-05 Completed [facility] 00:00:00 [facility] Polio (IPV/OPV) 1992-11-05 Completed [facility] 00:00:00 [facility] DTP 1992-11-05 Completed [facility] 00:00:00 [facility] HIB 4 Dose Schedule 1992-11-05 Completed [facility] 00:00:00 [facility] MMR 1992-11-05 Completed [facility] 00:00:00 [facility] Polio (IPV/OPV) 1992-11-05 Completed [facility] 00:00:00 [facility] DTP 1992-11-05 Completed [facility] 00:00:00 [facility] HIB 4 Dose Schedule 1992-11-05 Completed [facility] 00:00:00 [facility] MMR 1992-11-05 Completed [facility] 00:00:00 [facility] Polio (IPV/OPV) 1992-11-05 Completed [facility] 00:00:00 [facility] DTP 1992-11-05 Completed [facility] 00:00:00 [facility] HIB 4 Dose Schedule 1992-11-05 Completed [facility] 00:00:00 [facility] MMR 1992-11-05 Completed [facility] 00:00:00 [facility] Polio (IPV/OPV) 1992-11-05 Completed [facility] 00:00:00 [facility] DTP 1992-11-05 Completed [facility] 00:00:00 [facility] HIB 4 Dose Schedule 1992-11-05 Completed [facility] 00:00:00 [facility] MMR 1992-11-05 Completed [facility] 00:00:00 [facility] Polio (IPV/OPV) 1992-11-05 Completed [facility] 00:00:00 [facility] DTP 1992-11-05 Completed [facility] 00:00:00 [facility] HIB 4 Dose Schedule 1992-11-05 Completed [facility] 00:00:00 [facility] MMR 1992-11-05 Completed [facility] 00:00:00 [facility] DTP 1992-11-05 Completed [facility] 00:00:00 [facility] HIB 4 Dose Schedule 1992-11-05 Completed [facility] 00:00:00 [facility] MMR 1992-11-05 Completed [facility] 00:00:00 [facility] Polio (IPV/OPV) 1992-11-05 Completed [facility] 00:00:00 [facility] Polio (IPV/OPV) 1992-11-05 Completed [facility] 00:00:00 [facility] DTP 1992-11-05 Completed [facility] 00:00:00 [facility] HIB 4 Dose Schedule 1992-11-05 Completed [facility] 00:00:00 [facility] MMR 1992-11-05 Completed [facility] 00:00:00 [facility] Polio (IPV/OPV) 1992-11-05 Completed [facility] 00:00:00 [facility] DTP 1992-11-05 Completed [facility] 00:00:00 [facility] HIB 4 Dose Schedule 1992-11-05 Completed [facility] 00:00:00 [facility] MMR 1992-11-05 Completed [facility] 00:00:00 [facility] Polio (IPV/OPV) 1992-11-05 Completed [facility] 00:00:00 [facility] DTP 1992-11-05 Completed [facility] 00:00:00 [facility] HIB 4 Dose Schedule 1992-11-05 Completed [facility] 00:00:00 [facility] MMR 1992-11-05 Completed [facility] 00:00:00 [facility] Polio (IPV/OPV) 1992-11-05 Completed [facility] 00:00:00 [facility] DTP 1992-11-05 Completed [facility] 00:00:00 [facility] HIB 4 Dose Schedule 1992-11-05 Completed [facility] 00:00:00 [facility] MMR 1992-11-05 Completed [facility] 00:00:00 [facility] Polio (IPV/OPV) 1992-11-05 Completed [facility] 00:00:00 [facility] DTP 1992-11-05 Completed [facility] 00:00:00 [facility] HIB 4 Dose Schedule 1992-11-05 Completed [facility] 00:00:00 [facility] DTP 1992-11-05 Completed [facility] 00:00:00 [facility] MMR 1992-11-05 Completed [facility] 00:00:00 [facility] Polio (IPV/OPV) 1992-11-05 Completed [facility] 00:00:00 [facility] DTP 1992-11-05 Completed [facility] 00:00:00 [facility] HIB 4 Dose Schedule 1992-11-05 Completed [facility] 00:00:00 [facility] MMR 1992-11-05 Completed [facility] 00:00:00 [facility] Polio (IPV/OPV) 1992-11-05 Completed [facility] 00:00:00 [facility] HIB 4 Dose Schedule 1992-11-05 Completed [facility] 00:00:00 [facility] MMR 1992-11-05 Completed [facility] 00:00:00 [facility] DTP 1992-11-05 Completed [facility] 00:00:00 [facility] HIB 4 Dose Schedule 1992-11-05 Completed [facility] 00:00:00 [facility] MMR 1992-11-05 Completed [facility] 00:00:00 [facility] Polio (IPV/OPV) 1992-11-05 Completed [facility] 00:00:00 [facility] DTP 1992-11-05 Completed [facility] 00:00:00 [facility] HIB 4 Dose Schedule 1992-11-05 Completed [facility] 00:00:00 [facility] MMR 1992-11-05 Completed [facility] 00:00:00 [facility] Polio (IPV/OPV) 1992-11-05 Completed [facility] 00:00:00 [facility] Polio (IPV/OPV) 1992-11-05 Completed [facility] 00:00:00 [facility] DTP 1992-11-05 Completed [facility] 00:00:00 [facility] HIB 4 Dose Schedule 1992-11-05 Completed [facility] 00:00:00 [facility] MMR 1992-11-05 Completed [facility] 00:00:00 [facility] Polio (IPV/OPV) 1992-11-05 Completed [facility] 00:00:00 [facility] DTP 1992-11-05 Completed [facility] 00:00:00 [facility] HIB 4 Dose Schedule 1992-11-05 Completed [facility] 00:00:00 [facility] MMR 1992-11-05 Completed [facility] 00:00:00 [facility] Polio (IPV/OPV) 1992-11-05 Completed [facility] 00:00:00 [facility] DTP 1992-11-05 Completed [facility] 00:00:00 [facility] HIB 4 Dose Schedule 1992-11-05 Completed [facility] 00:00:00 [facility] MMR 1992-11-05 Completed [facility] 00:00:00 [facility] Polio (IPV/OPV) 1992-11-05 Completed [facility] 00:00:00 [facility] DTP 1992-11-05 Completed [facility] 00:00:00 [facility] HIB 4 Dose Schedule 1992-11-05 Completed [facility] 00:00:00 [facility] Polio (IPV/OPV) 1992-01-17 Completed [facility] 00:00:00 [facility] DTP 1992-01-17 Completed [facility] 00:00:00 [facility] HIB 4 Dose Schedule 1992-01-17 Completed [facility] 00:00:00 [facility] Polio (IPV/OPV) 1992-01-17 Completed [facility] 00:00:00 [facility] DTP 1992-01-17 Completed [facility] 00:00:00 [facility] DTP 1992-01-17 Completed [facility] 00:00:00 [facility] HIB 4 Dose Schedule 1992-01-17 Completed [facility] 00:00:00 [facility] Polio (IPV/OPV) 1992-01-17 Completed [facility] 00:00:00 [facility] HIB 4 Dose Schedule 1992-01-17 Completed [facility] 00:00:00 [facility] DTP 1992-01-17 Completed [facility] 00:00:00 [facility] HIB 4 Dose Schedule 1992-01-17 Completed [facility] 00:00:00 [facility] Polio (IPV/OPV) 1992-01-17 Completed [facility] 00:00:00 [facility] DTP 1992-01-17 Completed [facility] 00:00:00 [facility] HIB 4 Dose Schedule 1992-01-17 Completed [...] Schedule 1992-01-17 Completed [facility] 00:00:00 [facility] Polio (IPV/OPV) 1992-01-17 Completed [facility] 00:00:00 [facility] DTP 1992-01-17 Completed [facility] 00:00:00 [facility] HIB 4 Dose Schedule 1992-01-17 Completed [facility] 00:00:00 [facility] Polio (IPV/OPV) 1992-01-17 Completed [facility] 00:00:00 [facility] DTP 1992-01-17 Completed [facility] 00:00:00 [facility] HIB 4 Dose Schedule 1992-01-17 Completed [facility] 00:00:00 [facility] Polio (IPV/OPV) 1992-01-17 Completed [facility] 00:00:00 [facility] DTP 1992-01-17 Completed [facility] 00:00:00 [facility] HIB 4 Dose Schedule 1992-01-17 Completed [facility] 00:00:00 [facility] Polio (IPV/OPV) 1992-01-17 Completed [facility] 00:00:00 [facility] DTP 1992-01-17 Completed [facility] 00:00:00 [facility] HIB 4 Dose Schedule 1992-01-17 Completed [facility] 00:00:00 [facility] Polio (IPV/OPV) 1992-01-17 Completed [facility] 00:00:00 [facility] DTP 1992-01-17 Completed [facility] 00:00:00 [facility] HIB 4 Dose Schedule 1992-01-17 Completed [facility] 00:00:00 [facility] Polio (IPV/OPV) 1992-01-17 Completed [facility] 00:00:00 [facility] DTP 1992-01-17 Completed [facility] 00:00:00 [facility] HIB 4 Dose Schedule 1992-01-17 Completed [facility] 00:00:00 [facility] Polio (IPV/OPV) 1992-01-17 Completed [facility] 00:00:00 [facility] DTP 1992-01-17 Completed [facility] 00:00:00 [facility] HIB 4 Dose Schedule 1992-01-17 Completed [facility] 00:00:00 [facility] DTP 1992-01-17 Completed [facility] 00:00:00 [facility] Polio (IPV/OPV) 1992-01-17 Completed [facility] 00:00:00 [facility] DTP 1992-01-17 Completed [facility] 00:00:00 [facility] HIB 4 Dose Schedule 1992-01-17 Completed [facility] 00:00:00 [facility] Polio (IPV/OPV) 1992-01-17 Completed [facility] 00:00:00 [facility] HIB 4 Dose Schedule 1992-01-17 Completed [facility] 00:00:00 [facility] DTP 1992-01-17 Completed [facility] 00:00:00 [facility] HIB 4 Dose Schedule 1992-01-17 Completed [facility] 00:00:00 [facility] Polio (IPV/OPV) 1992-01-17 Completed [facility] 00:00:00 [facility] DTP 1992-01-17 Completed [facility] 00:00:00 [facility] HIB 4 Dose Schedule 1992-01-17 Completed [facility] 00:00:00 [facility] Polio (IPV/OPV) 1992-01-17 Completed [facility] 00:00:00 [facility] Polio (IPV/OPV) 1992-01-17 Completed [facility] 00:00:00 [facility] DTP 1992-01-17 Completed [facility] 00:00:00 [facility] HIB 4 Dose Schedule 1992-01-17 Completed [facility] 00:00:00 [facility] Polio (IPV/OPV) 1992-01-17 Completed [facility] 00:00:00 [facility] DTP 1992-01-17 Completed [facility] 00:00:00 [facility] HIB 4 Dose Schedule 1992-01-17 Completed [facility] 00:00:00 [facility] Polio (IPV/OPV) 1992-01-17 Completed [facility] 00:00:00 [facility] DTP 1992-01-17 Completed [facility] 00:00:00 [facility] HIB 4 Dose Schedule 1992-01-17 Completed [facility] 00:00:00 [facility] Polio (IPV/OPV) 1992-01-17 Completed [facility]00 [facility] DTP 1992-01-17 Completed [facility] 00:00:00 [facility] HIB 4 Dose Schedule 1992-01-17 Completed [facility] 00:00:00 [facility] Polio (IPV/OPV) 1992-01-17 Completed [facility] 00:00:00 [facility] DTP 1992-01-17 Completed [facility] 00:00:00 [facility] HIB 4 Dose Schedule 1992-01-17 Completed [facility] 00:00:00 [facility] Polio (IPV/OPV) 1992-01-17 Completed [facility] 00:00:00 [facility] DTP 1992-01-17 Completed [facility] 00:00:00 [facility] HIB 4 Dose Schedule 1992-01-17 Completed [facility] 00:00:00 [facility] DTP 1992-01-17 Completed [facility] 00:00:00 [facility] HIB 4 Dose Schedule 1992-01-17 Completed [facility] 00:00:00 [facility] Polio (IPV/OPV) 1992-01-17 Completed [facility] 00:00:00 [facility] Polio (IPV/OPV) 1992-01-17 Completed [facility] 00:00:00 [facility] DTP 1992-01-17 Completed [facility] 00:00:00 [facility] HIB 4 Dose Schedule 1992-01-17 Completed [facility] 00:00:00 [facility] Polio (IPV/OPV) 1992-01-17 Completed [facility] 00:00:00 [facility] DTP 1992-01-17 Completed [facility] 00:00:00 [facility] HIB 4 Dose Schedule 1992-01-17 Completed [facility] 00:00:00 [facility] Polio (IPV/OPV) 1992-01-17 Completed [facility] 00:00:00 [facility] DTP 1992-01-17 Completed [facility] 00:00:00 [facility] HIB 4 Dose Schedule 1992-01-17 Completed [facility] 00:00:00 [facility] Polio (IPV/OPV) 1992-01-17 Completed [facility] 00:00:00 [facility] DTP 1992-01-17 Completed [facility] 00:00:00 [facility] HIB 4 Dose Schedule 1992-01-17 Completed [facility] 00:00:00 [facility] Polio (IPV/OPV) 1992-01-17 Completed [facility] 00:00:00 [facility] DTP 1992-01-17 Completed [facility] 00:00:00 [facility] DTP 1992-01-17 Completed [facility] 00:00:00 [facility] HIB 4 Dose Schedule 1992-01-17 Completed [facility] 00:00:00 [facility] Polio (IPV/OPV) 1992-01-17 Completed [facility] 00:00:00 [facility] DTP 1992-01-17 Completed [facility] 00:00:00 [facility] HIB 4 Dose Schedule 1992-01-17 Completed [facility] 00:00:00 [facility] Polio (IPV/OPV) 1992-01-17 Completed [facility] 00:00:00 [facility] HIB 4 Dose Schedule 1992-01-17 Completed [facility] 00:00:00 [facility] DTP 1992-01-17 Completed [facility] 00:00:00 [facility] HIB 4 Dose Schedule 1992-01-17 Completed [facility] 00:00:00 [facility] Polio (IPV/OPV) 1992-01-17 Completed [facility] 00:00:00 [facility] DTP 1992-01-17 Completed [facility] 00:00:00 [facility] Polio (IPV/OPV) 1992-01-17 Completed [facility] 00:00:00 [facility] HIB 4 Dose Schedule 1992-01-17 Completed [facility] 00:00:00 [facility] Polio (IPV/OPV) 1992-01-17 Completed [facility] 00:00:00 [facility] DTP 1992-01-17 Completed [facility] 00:00:00 [facility] HIB 4 Dose Schedule 1992-01-17 Completed [facility] 00:00:00 [facility] Polio (IPV/OPV) 1992-01-17 Completed [facility] 00:00:00 [facility] DTP 1992-01-17 Completed [facility] 00:00:00 [facility] HIB 4 Dose Schedule 1992-01-17 Completed [facility] 00:00:00 [facility] Polio (IPV/OPV) 1992-01-17 Completed [facility] 00:00:00 [facility] DTP 1992-01-17 Completed [facility] 00:00:00 [facility] HIB 4 Dose Schedule 1992-01-17 Completed [facility] 00:00:00 [facility] Polio (IPV/OPV) 1992-01-17 Completed [facility] 00:00:00 [facility] DTP 1992-01-17 Completed [facility] 00:00:00 [facility] HIB 4 Dose Schedule 1992-01-17 Completed [facility] 00:00:00 [facility] Polio (IPV/OPV) 1991 Completed [facility] 00:00:00 [facility] DTP 1991 Completed [facility] 00:00:00 [facility] HIB 4 Dose Schedule 1991 Completed [facility] 00:00:00 [facility] DTP 1991 Completed [facility] 00:00:00 [facility] Polio (IPV/OPV) 1991 Completed [facility] 00:00:00 [facility] DTP 1991 Completed [facility] 00:00:00 [facility] HIB 4 Dose Schedule 1991 Completed [facility] 00:00:00 [facility] Polio (IPV/OPV) 1991 Completed [facility] 00:00:00 [facility] HIB 4 Dose Schedule 1991 Completed [facility] 00:00:00 [facility] DTP 1991 Completed [facility] 00:00:00 [facility] HIB 4 Dose Schedule 1991 Completed [facility] 00:00:00 [facility] Polio (IPV/OPV) 1991 Completed [facility] 00:00:00 [facility] DTP 1991 Completed [facility] 00:00:00 [facility] HIB 4 Dose Schedule 1991 Completed [facility] 00:00:00 [facility] Polio (IPV/OPV) 1991 Completed [facility] 00:00:00 [facility] Polio (IPV/OPV) 1991 Completed [facility] 00:00:00 [facility] DTP 1991 Completed [facility] 00:00:00 [facility] HIB 4 Dose Schedule 1991 Completed [facility] 00:00:00 [facility] Polio (IPV/OPV) 1991 Completed [facility] 00:00:00 [facility] DTP 1991 Completed [facility] 00:00:00 [facility] HIB 4 Dose Schedule 1991 Completed [facility] 00:00:00 [facility] Polio (IPV/OPV) 1991 Completed [facility] 00:00:00 [facility] DTP 1991 Completed [facility] 00:00:00 [facility] HIB 4 Dose Schedule 1991 Completed [facility] 00:00:00 [facility] Polio (IPV/OPV) 1991 Completed [facility] 00:00:00 [facility] DTP 1991 Completed [facility] 00:00:00 [facility] HIB 4 Dose Schedule 1991 Completed [facility] 00:00:00 [facility] Polio (IPV/OPV) 1991 Completed [facility] 00:00:00 [facility] DTP 1991 Completed [facility] 00:00:00 [facility] HIB 4 Dose Schedule 1991 Completed [facility] 00:00:00 [facility] Polio (IPV/OPV) 1991 Completed [facility] 00:00:00 [facility] DTP 1991 Completed [facility] 00:00:00 [facility] HIB 4 Dose Schedule 1991 Completed [facility] 00:00:00 [facility] Polio (IPV/OPV) 1991 Completed [facility] 00:00:00 [facility] DTP 1991 Completed [facility] 00:00:00 [facility] HIB 4 Dose Schedule 1991 Completed [facility] 00:00:00 [facility] Polio (IPV/OPV) 1991 Completed [facility] 00:00:00 [facility] DTP 1991 Completed [facility] 00:00:00 [facility] HIB 4 Dose Schedule 1991 Completed [facility] 00:00:00 [facility] Polio (IPV/OPV) 1991 Completed [facility] 00:00:00 [facility] DTP 1991 Completed [facility] 00:00:00 [facility] DTP 1991 Completed [facility] 00:00:00 [facility] HIB 4 Dose Schedule 1991 Completed [facility] 00:00:00 [facility] Polio (IPV/OPV) 1991 Completed [facility] 00:00:00 [facility] DTP 1991 Completed [facility] 00:00:00 [facility] HIB 4 Dose Schedule 1991 Completed [facility] 00:00:00 [facility] Polio (IPV/OPV) 1991 Completed [facility] 00:00:00 [facility] HIB 4 Dose Schedule 1991 Completed [facility] 00:00:00 [facility] DTP 1991 Completed [facility] 00:00:00 [facility] HIB 4 Dose Schedule 1991 Completed [facility] 00:00:00 [facility] Polio (IPV/OPV) 1991 Completed [facility] 00:00:00 [facility] DTP 1991 Completed [facility] 00:00:00 [facility] HIB 4 Dose Schedule 1991 Completed [facility] 00:00:00 [facility] Polio (IPV/OPV) 1991 Completed [facility] 00:00:00 [facility] Polio (IPV/OPV) 1991 Completed [facility] 00:00:00 [facility] DTP 1991 Completed [facility] 00:00:00 [facility] HIB 4 Dose Schedule 1991 Completed [facility] 00:00:00 [facility] Polio (IPV/OPV) 1991 Completed [facility] 00:00:00 [facility] DTP 1991 Completed [facility] 00:00:00 [facility] HIB 4 Dose Schedule 1991 Completed [facility] 00:00:00 [facility] Polio (IPV/OPV) 1991 Completed [facility] 00:00:00 [facility] DTP 1991 Completed [facility] 00:00:00 [facility] HIB 4 Dose Schedule 1991 Completed [facility] 00:00:00 [facility] Polio (IPV/OPV) 1991 Completed [facility] 00:00:00 [facility] DTP 1991 Completed [facility] 00:00:00 [facility] HIB 4 Dose Schedule 1991 Completed [facility] 00:00:00 [facility] Polio (IPV/OPV) 1991 Completed [facility] 00:00:00 [facility] DTP 1991 Completed [facility] 00:00:00 [facility] HIB 4 Dose Schedule 1991 Completed [facility] 00:00:00 [facility] Polio (IPV/OPV) 1991 Completed [facility] 00:00:00 [facility] DTP 1991 Completed [facility] 00:00:00 [facility] HIB 4 Dose Schedule 1991 Completed [facility] 00:00:00 [facility] DTP 1991 Completed [facility] 00:00:00 [facility] HIB 4 Dose Schedule 1991 Completed [facility] 00:00:00 [facility] Polio (IPV/OPV) 1991 Completed [facility] 00:00:00 [facility] Polio (IPV/OPV) 1991 Completed [facility] 00:00:00 [facility] DTP 1991 Completed [facility] 00:00:00 [facility] HIB 4 Dose Schedule 1991 Completed [facility] 00:00:00 [facility] Polio (IPV/OPV) 1991 Completed [facility] 00:00:00 [facility] DTP 1991 Completed [facility] 00:00:00 [facility] HIB 4 Dose Schedule 1991 Completed [facility] 00:00:00 [facility] Polio (IPV/OPV) 1991 Completed [facility] 00:00:00 [facility] DTP 1991 Completed [facility] 00:00:00 [facility] HIB 4 Dose Schedule 1991 Completed [facility] 00:00:00 [facility] Polio (IPV/OPV) 1991 Completed [facility] 00:00:00 [facility] DTP 1991 Completed [facility] 00:00:00 [facility] HIB 4 Dose Schedule 1991 Completed [facility] 00:00:00 [facility] Polio (IPV/OPV) 1991 Completed [facility] 00:00:00 [facility] DTP 1991 Completed [facility] 00:00:00 [facility] DTP 1991 Completed [facility] 00:00:00 [facility] HIB 4 Dose Schedule 1991 Completed [facility] 00:00:00 [facility] Polio (IPV/OPV) 1991 Completed [facility] 00:00:00 [facility] DTP 1991 Completed [facility] 00:00:00 [facility] HIB 4 Dose Schedule 1991 Completed [facility] 00:00:00 [facility] HIB 4 Dose Schedule 1991 Completed [facility] 00:00:00 [facility] Polio (IPV/OPV) 1991 Completed [facility] 00:00:00 [facility] DTP 1991 Completed [facility] 00:00:00 [facility] HIB 4 Dose Schedule 1991 Completed [facility] 00:00:00 [facility] Polio (IPV/OPV) 1991 Completed [facility] 00:00:00 [facility] Polio (IPV/OPV) 1991 Completed [facility] 00:00:00 [facility] DTP 1991 Completed [facility] 00:00:00 [facility] HIB 4 Dose Schedule 1991 Completed [facility] 00:00:00 [facility] Polio (IPV/OPV) 1991 Completed [facility] 00:00:00 [facility] DTP 1991 Completed [facility] 00:00:00 [facility] HIB 4 Dose Schedule 1991 Completed [facility] 00:00:00 [facility] Polio (IPV/OPV) 1991 Completed [facility] 00:00:00 [facility] DTP 1991 Completed [facility] 00:00:00 [facility] HIB 4 Dose Schedule 1991 Completed [facility] 00:00:00 [facility] Polio (IPV/OPV) 1991 Completed [facility] 00:00:00 [facility] DTP 1991 Completed [facility] 00:00:00 [facility] HIB 4 Dose Schedule 1991 Completed [facility] 00:00:00 [facility] Polio (IPV/OPV) 1991 Completed [facility] 00:00:00 [facility] DTP 1991 Completed [facility] 00:00:00 [facility] HIB 4 Dose Schedule 1991 Completed [facility] 00:00:00 [facility] Polio (IPV/OPV) 1991 Completed [facility] 00:00:00 [facility] DTP 1991 Completed [facility] 00:00:00 [facility] DTP 1991 Completed [facility] 00:00:00 [facility] HIB 4 Dose Schedule 1991 Completed [facility] 00:00:00 [facility] Polio (IPV/OPV) 1991 Completed [facility] 00:00:00 [facility] DTP 1991 Completed [facility] 00:00:00 [facility] HIB 4 Dose Schedule 1991 Completed [facility] 00:00:00 [facility] Polio (IPV/OPV) 1991 Completed [facility] 00:00:00 [facility] HIB 4 Dose Schedule 1991 Completed [facility] 00:00:00 [facility] DTP 1991 Completed [facility] 00:00:00 [facility] HIB 4 Dose Schedule 1991 Completed [facility] 00:00:00 [facility] Polio (IPV/OPV) 1991 Completed [facility] 00:00:00 [facility] DTP 1991 Completed [facility] 00:00:00 [facility] Polio (IPV/OPV) 1991 Completed [facility] 00:00:00 [facility] HIB 4 Dose Schedule 1991 Completed [facility] 00:00:00 [facility] Polio (IPV/OPV) 1991 Completed [facility] 00:00:00 [facility] DTP 1991 Completed [facility] 00:00:00 [facility] HIB 4 Dose Schedule 1991 Completed [facility] 00:00:00 [facility] Polio (IPV/OPV) 1991 Completed [facility] 00:00:00 [facility] DTP 1991 Completed [facility] 00:00:00 [facility] HIB 4 Dose Schedule 1991 Completed [facility] 00:00:00 [facility] Polio (IPV/OPV) 1991 Completed [facility] 00:00:00 [facility] DTP 1991 Completed [facility] 00:00:00 [facility] HIB 4 Dose Schedule 1991 Completed [facility] 00:00:00 [facility] Polio (IPV/OPV) 1991 Completed [facility] 00:00:00 [facility] DTP 1991 Completed [facility] 00:00:00 [facility] HIB 4 Dose Schedule 1991 Completed [facility] 00:00:00 [facility] Polio (IPV/OPV) 1991 Completed [facility] 00:00:00 [facility] DTP 1991 Completed [facility] 00:00:00 [facility] HIB 4 Dose Schedule 1991 Completed [facility] 00:00:00 [facility] Polio (IPV/OPV) 1991 Completed [facility] 00:00:00 [facility] DTP 1991 Completed [facility] 00:00:00 [facility] HIB 4 Dose Schedule 1991 Completed [facility] 00:00:00 [facility] Polio (IPV/OPV) 1991 Completed [facility] 00:00:00 [facility] DTP 1991 Completed [facility] 00:00:00 [facility] HIB 4 Dose Schedule 1991 Completed [facility] 00:00:00 [facility] Polio (IPV/OPV) 1991 Completed [facility] 00:00:00 [facility] DTP 1991 Completed [facility] 00:00:00 [facility] HIB 4 Dose Schedule 1991 Completed [facility] 00:00:00 [facility] Polio (IPV/OPV) 1991 Completed [facility] 00:00:00 [facility] DTP 1991 Completed [facility] 00:00:00 [facility] DTP 1991 Completed [facility] 00:00:00 [facility] HIB 4 Dose Schedule 1991 Completed [facility] 00:00:00 [facility] Polio (IPV/OPV) 1991 Completed [facility] 00:00:00 [facility] DTP 1991 Completed [facility] 00:00:00 [facility] HIB 4 Dose Schedule 1991 Completed [facility] 00:00:00 [facility] HIB 4 Dose Schedule 1991 Completed [facility] 00:00:00 [facility] Polio (IPV/OPV) 1991 Completed [facility] 00:00:00 [facility] DTP 1991 Completed [facility] 00:00:00 [facility] HIB 4 Dose Schedule 1991 Completed [facility] 00:00:00 [facility] Polio (IPV/OPV) 1991 Completed [facility] 00:00:00 [facility] DTP 1991 Completed [facility] 00:00:00 [facility] Polio (IPV/OPV) 1991 Completed [facility] 00:00:00 [facility] HIB 4 Dose Schedule 1991 Completed [facility] 00:00:00 [facility] Polio (IPV/OPV) 1991 Completed [facility] 00:00:00 [facility] DTP 1991 Completed [facility] 00:00:00 [facility] HIB 4 Dose Schedule 1991 Completed [facility] 00:00:00 [facility] Polio (IPV/OPV) 1991 Completed [facility] 00:00:00 [facility] DTP 1991 Completed [facility] 00:00:00 [facility] HIB 4 Dose Schedule 1991 Completed [facility] 00:00:00 [facility] Polio (IPV/OPV) 1991 Completed [facility] 00:00:00 [facility] DTP 1991 Completed [facility] 00:00:00 [facility] HIB 4 Dose Schedule 1991 Completed [facility] 00:00:00 [facility] Polio (IPV/OPV) 1991 Completed [facility] 00:00:00 [facility] DTP 1991 Completed [facility] 00:00:00 [facility] HIB 4 Dose Schedule 1991 Completed [facility] 00:00:00 [facility] Polio (IPV/OPV) 1991 Completed [facility] 00:00:00 [facility] DTP 1991 Completed [facility] 00:00:00 [facility] HIB 4 Dose Schedule 1991 Completed [facility] 00:00:00 [facility] DTP 1991 Completed [facility] 00:00:00 [facility] Polio (IPV/OPV) 1991 Completed [facility] 00:00:00 [facility] HIB 4 Dose Schedule 1991 Completed [facility] 00:00:00 [facility] DTP 1991 Completed [facility] 00:00:00 [facility] HIB 4 Dose Schedule 1991 Completed [facility] 00:00:00 [facility] Polio (IPV/OPV) 1991 Completed [facility] 00:00:00 [facility] Polio (IPV/OPV) 1991 Completed [facility] 00:00:00 [facility] DTP 1991 Completed [facility] 00:00:00 [facility] HIB 4 Dose Schedule 1991 Completed [facility] 00:00:00 [facility] Polio (IPV/OPV) 1991 Completed [facility] 00:00:00 [facility] DTP 1991 Completed [facility] 00:00:00 [facility] HIB 4 Dose Schedule 1991 Completed [facility] 00:00:00 [facility] Polio (IPV/OPV) 1991 Completed [facility] 00:00:00 [facility] DTP 1991 Completed [facility] 00:00:00 [facility] HIB 4 Dose Schedule 1991 Completed [facility] 00:00:00 [facility] Polio (IPV/OPV) 1991 Completed [facility] 00:00:00 [facility] DTP 1991 Completed [facility] 00:00:00 [facility] HIB 4 Dose Schedule 1991 Completed [facility] 00:00:00 [facility] Polio (IPV/OPV) 1991 Completed [facility] 00:00:00 [facility] DTP 1991 Completed [facility] 00:00:00 [facility] DTP 1991 Completed [facility] 00:00:00 [facility] HIB 4 Dose Schedule 1991 Completed [facility] 00:00:00 [facility] Polio (IPV/OPV) 1991 Completed [facility] 00:00:00 [facility] HIB 4 Dose Schedule 1991 Completed [facility] 00:00:00 [facility] DTP 1991 Completed [facility] 00:00:00 [facility] HIB 4 Dose Schedule 1991 Completed [facility] 00:00:00 [facility] Polio (IPV/OPV) 1991 Completed [facility] 00:00:00 [facility] DTP 1991 Completed [facility] 00:00:00 [facility] HIB 4 Dose Schedule 1991 Completed [facility] 00:00:00 [facility] Polio (IPV/OPV) 1991 Completed [facility] 00:00:00 [facility] Polio (IPV/OPV) 1991 Completed [facility] 00:00:00 [facility] DTP 1991 Completed [facility] 00:00:00 [facility] HIB 4 Dose Schedule 1991 Completed [facility] 00:00:00 [facility] Polio (IPV/OPV) 1991 Completed [facility] 00:00:00 [facility] DTP 1991 Completed [facility] 00:00:00 [facility] HIB 4 Dose Schedule 1991 Completed [facility] 00:00:00 [facility] Polio (IPV/OPV) 1991 Completed [facility] 00:00:00 [facility] DTP 1991 Completed [facility] 00:00:00 [facility] HIB 4 Dose Schedule 1991 Completed [facility] 00:00:00 [facility] Polio (IPV/OPV) 1991 Completed [facility] 00:00:00 [facility] DTP 1991 Completed [facility] 00:00:00 [facility] HIB 4 Dose Schedule 1991 Completed [facility] 00:00:00 [facility] Polio (IPV/OPV) 1991 Completed [facility] 00:00:00 [facility] DTP 1991 Completed [facility] 00:00:00 [facility] HIB 4 Dose Schedule 1991 Completed [facility] 00:00:00 [facility] DTAP Unknown Completed [facility] DTP Unknown Completed [facility] DTP Unknown Completed [facility] DTP Unknown Completed [facility] DTP Unknown Completed [facility] DTP Unknown Completed [facility] HIB 4 Dose Schedule Unknown Completed [facility] HIB 4 Dose Schedule Unknown Completed [facility] HIB 4 Dose Schedule Unknown Completed [facility] [facility] HIB 4 Dose Schedule Unknown Completed [facility] MMR Unknown Completed [facility] MMR Unknown Completed [facility] Polio (IPV/OPV) Unknown Completed [facility] Polio (IPV/OPV) Unknown Completed [facility] Polio (IPV/OPV) Unknown Completed [facility] Polio (IPV/OPV) Unknown Completed [facility] Polio (IPV/OPV) Unknown Completed [facility] Meningococcal Unknown Completed [facility] Polysaccharide [facility] (groups A, C, Y and Branc h W-135) conjugate vaccine (MCV4P) TDAP Unknown Completed [facility] DTAP Unknown Completed [facility] DTP Unknown Completed [facility] DTP Unknown Completed [facility] DTP Unknown Completed [facility] DTP Unknown Completed [facility] DTP Unknown Completed [facility] HIB 4 Dose Schedule Unknown [facility] D[facility] 4 Dose Schedule Unknown Completed [facility] HIB 4 Dose Schedule Unknown Completed [facility] MMR Unknown Completed [facility] MMR Unknown Completed [facility] Polio (IPV/OPV) Unknown Completed [facility] Polio (IPV/OPV) Unknown Completed [facility] Polio (IPV/OPV) Unknown Completed [facility] Polio (IPV/OPV) Unknown Completed [facility] Polio (IPV/OPV) Unknown Completed [facility] Meningococcal Unknown Completed [facility] (groups A, C, Y and Branc h W-135) conjugate vaccine (MCV4P) TDAP Unknown Completed [facility] DTAP Unknown Completed [facility] DTP Unknown Completed [facility] DTP Unknown Completed [facility] DTP Unknown Completed [facility] DTP Unknown Completed [facility] DTP Unknown Completed [facility] HIB 4 Dose Schedule Unknown [facility] 4 Dose Schedule Unknown Completed [facility] HIB 4 Dose Schedule Unknown Completed [facility] HIB 4 Dose Schedule Unknown Completed [facility] MMR Unknown Completed [facility] MMR Unknown Completed [facility] Polio (IPV/OPV) Unknown Completed [facility] Polio (IPV/OPV) Unknown Completed [facility] Polio (IPV/OPV) Unknown Completed [facility] Polio (IPV/OPV) Unknown Completed [facility] Polio (IPV/OPV) Unknown Completed [facility] Meningococcal Unknown Completed [facility] Polysaccharide [facility] (groups A, C, Y and Branc h W-135) conjugate vaccine (MCV4P) TDAP Unknown Completed [facility] DTAP Unknown Completed [facility] DTP Unknown Completed [facility] DTP Unknown Completed [facility] DTP Unknown Completed [facility] DTP Unknown Completed [facility] DTP Unknown Completed [facility] HIB 4 Dose Schedule Unknown [facility] 4 Dose Schedule Unknown Completed [facility] HIB 4 Dose Schedule Unknown Completed [facility] HIB 4 Dose Schedule Unknown Completed [facility] MMR Unknown Completed [facility] MMR Unknown Completed [facility] Polio (IPV/OPV) Unknown Completed [facility] Polio (IPV/OPV) Unknown Completed [facility] Polio (IPV/OPV) Unknown Completed [facility] Polio (IPV/OPV) Unknown Completed [facility] Polio (IPV/OPV) Unknown Completed [facility] Meningococcal Unknown Completed [facility] (groups A, C, Y and Branc h W-135) conjugate vaccine (MCV4P) TDAP Unknown Completed [facility] DTAP Unknown Completed [facility] DTP Unknown Completed [facility] DTP Unknown Completed [facility] DTP Unknown Completed [facility] DTP Unknown Completed [facility] DTP Unknown Completed [facility] HIB 4 Dose Schedule Unknown [facility] 4 Dose Schedule Unknown Completed [facility] HIB 4 Dose Schedule Unknown Completed [facility]ive [facility] HIB 4 Dose Schedule Unknown Completed [facility]ive [facility] MMR Unknown Completed [facility] MMR Unknown Completed [facility] Polio (IPV/OPV) Unknown Completed [facility] Polio (IPV/OPV) Unknown Completed [facility] Polio (IPV/OPV) Unknown Completed [facility] Polio (IPV/OPV) Unknown Completed [facility] Polio (IPV/OPV) Unknown Completed [facility] Meningococcal Unknown Completed [facility] Polysaccharide [facility] (groups A, C, Y and Branc h W-135) conjugate vaccine (MCV4P) TDAP Unknown Completed [facility] DTAP Unknown Completed [facility] DTP Unknown Completed [facility] DTP Unknown Completed [facility] DTP Unknown Completed [facility] DTP Unknown Completed [facility] DTP Unknown Completed [facility] HIB 4 Dose Schedule Unknown Completed [facility] HIB 4 Dose Schedule Unknown Completed [facility]ive [facility] HIB 4 Dose Schedule Unknown Completed [facility]ive [facility] HIB 4 Dose Schedule Unknown Completed [facility] MMR Unknown Completed [facility] MMR Unknown Completed [facility] Polio (IPV/OPV) Unknown Completed [facility] Polio (IPV/OPV) Unknown Completed [facility] Polio (IPV/OPV) Unknown Completed [facility] Polio (IPV/OPV) Unknown Completed [facility] Polio (IPV/OPV) Unknown Completed [facility] Meningococcal Unknown Completed [facility] (groups A, C, Y and Branc h W-135) conjugate vaccine (MCV4P) TDAP Unknown Completed [facility] DTAP Unknown Completed [facility] DTP Unknown Completed [facility] DTP Unknown Completed [facility] DTP Unknown Completed [facility] DTP Unknown Completed [facility] DTP Unknown Completed [facility] HIB 4 Dose Schedule Unknown [facility] 4 Dose Schedule Unknown Completed [facility] HIB 4 Dose Schedule Unknown Completed [facility] HIB 4 Dose Schedule Unknown Completed [facility] MMR Unknown Completed [facility] MMR Unknown Completed [facility] Polio (IPV/OPV) Unknown Completed [facility] Polio (IPV/OPV) Unknown Completed [facility] Polio (IPV/OPV) Unknown Completed [facility] Polio (IPV/OPV) Unknown Completed [facility] Polio (IPV/OPV) Unknown Completed [facility] Meningococcal Unknown Completed [facility] Polysaccharide [facility] (groups A, C, Y and Branc h W-135) conjugate vaccine (MCV4P) TDAP Unknown Completed [facility] DTAP Unknown Completed [facility] DTP Unknown Completed [facility] DTP Unknown [facility]pleted [facility] DTP Unknown Completed [facility] DTP Unknown Completed [facility] DTP Unknown Completed [facility] HIB 4 Dose Schedule Unknown Completed [facility] HIB 4 Dose Schedule Unknown Completed [facility]ive [facility] HIB 4 Dose Schedule Unknown Completed [facility]ive [facility] HIB 4 Dose Schedule Unknown [facility] MMR Unknown Completed [facility] MMR Unknown Completed [facility] Polio (IPV/OPV) Unknown Completed [facility] Polio (IPV/OPV) Unknown Completed [facility] Polio (IPV/OPV) Unknown Completed [facility] Polio (IPV/OPV) Unknown Completed [facility] Polio (IPV/OPV) Unknown Completed [facility] Meningococcal Unknown Completed [facility] (groups A, C, Y and Branc h W-135) conjugate vaccine (MCV4P) TDAP Unknown Completed [facility] DTAP Unknown Completed [facility] DTP Unknown Completed [facility] DTP Unknown Completed [facility] DTP Unknown Completed [facility] DTP Unknown Completed [facility] DTP Unknown Completed [facility] HIB 4 Dose Schedule Unknown Completed [facility] HIB 4 Dose Schedule Unknown Completed [facility] HIB 4 Dose Schedule Unknown Completed [facility] HIB 4 Dose Schedule Unknown Completed [facility] MMR Unknown Completed [facility] MMR Unknown Completed [facility] Polio (IPV/OPV) Unknown Completed [facility] Polio (IPV/OPV) Unknown Completed [facility] Polio (IPV/OPV) Unknown Completed [facility] Polio (IPV/OPV) Unknown Completed [facility] Polio (IPV/OPV) Unknown Completed [facility] Meningococcal Unknown Completed [facility] Polysaccharide [facility] (groups A, C, Y and Branc h W-135) conjugate vaccine (MCV4P) TDAP Unknown Completed [facility] DTAP Unknown Completed [facility] DTP Unknown Completed [facility] DTP Unknown Completed [facility] DTP Unknown Completed [facility] DTP Unknown Completed [facility] DTP Unknown Completed [facility] HIB 4 Dose Schedule Unknown Completed [facility] HIB 4 Dose Schedule Unknown Completed [facility] HIB 4 Dose Schedule Unknown Completed [facility] HIB 4 Dose Schedule Unknown [facility] MMR Unknown Completed [facility] MMR Unknown Completed [facility] Polio (IPV/OPV) Unknown Completed [facility] Polio (IPV/OPV) Unknown Completed [facility] Polio (IPV/OPV) Unknown Completed [facility] Polio (IPV/OPV) Unknown Completed [facility] Polio (IPV/OPV) Unknown Completed [facility] Meningococcal Unknown Completed [facility] (groups A, C, Y and Branc h W-135) conjugate vaccine (MCV4P) TDAP Unknown Completed [facility] DTAP Unknown Completed [facility] DTP Unknown Completed [facility] DTP Unknown Completed [facility] DTP Unknown Completed [facility] DTP Unknown Completed [facility] DTP Unknown Completed [facility] HIB 4 Dose Schedule Unknown Completed [facility] HIB 4 Dose Schedule Unknown Completed [facility] HIB 4 Dose Schedule Unknown Completed [facility] HIB 4 Dose Schedule Unknown Completed [facility] MMR Unknown Completed [facility] MMR Unknown Completed [facility] Polio (IPV/OPV) Unknown Completed [facility] Polio (IPV/OPV) Unknown Completed [facility] Polio (IPV/OPV) Unknown Completed [facility] Polio (IPV/OPV) Unknown Completed [facility] Polio (IPV/OPV) Unknown Completed [facility] Meningococcal Unknown Completed [facility] Polysaccharide [facility] (groups A, C, Y and Branc h W-135) conjugate vaccine (MCV4P) TDAP Unknown Completed [facility] DTAP Unknown Completed [facility] DTP Unknown Completed [facility] DTP Unknown Completed [facility] DTP Unknown Completed [facility] DTP Unknown Completed [facility] DTP Unknown Completed [facility] HIB 4 Dose Schedule Unknown Completed [facility] HIB 4 Dose Schedule Unknown Completed [facility] HIB 4 Dose Schedule Unknown Completed [facility] HIB 4 Dose Schedule Unknown Com[facility] MMR Unknown Completed [facility] MMR Unknown Completed [facility] Polio (IPV/OPV) Unknown Completed [facility] Polio (IPV/OPV) Unknown Completed [facility] Polio (IPV/OPV) Unknown Completed [facility] Polio (IPV/OPV) Unknown Completed [facility] Polio (IPV/OPV) Unknown Completed [facility] Meningococcal Unknown Completed [facility] (groups A, C, Y and Branc h W-135) conjugate vaccine (MCV4P) TDAP Unknown Completed [facility] HEPATITIS A Unknown Completed [facility] Hep B, Adol or Pedi Unknown Completed [facility] Hep B, Adol or Pedi Unknown Completed [facility] HEPATITIS A Unknown Completed [facility] Hep B, Adol or Pedi Unknown Completed [facility] TD, NOS Unknown Completed [facility] Influenza Virus Unknown Completed [facility] DTAP Unknown [facility]pleted [facility] DTP Unknown [facility]pleted [facility] DTP Unknown Completed [facility] DTP Unknown Completed [facility] DTP Unknown Completed [facility] DTP Unknown Completed [facility] HIB 4 Dose Schedule Unknown Completed [facility] HIB 4 Dose Schedule Unknown Completed [facility] HIB 4 Dose Schedule Unknown Completed [facility] HIB 4 Dose Schedule Unknown Completed [facility] MMR Unknown Completed [facility] MMR Unknown Completed [facility] Polio (IPV/OPV) Unknown Completed [facility] Polio (IPV/OPV) Unknown Completed [facility] Polio (IPV/OPV) Unknown Completed [facility] Polio (IPV/OPV) Unknown Completed [facility] Polio (IPV/OPV) Unknown Completed [facility] Meningococcal Unknown Completed [facility] (groups A, C, Y and Branc h W-135) conjugate vaccine (MCV4P) TDAP Unknown Completed [facility] DTAP Unknown Completed [facility] DTP Unknown Completed [facility] DTP Unknown Completed [facility] DTP Unknown Completed [facility] DTP Unknown Completed [facility] DTP Unknown Completed [facility] HIB 4 Dose Schedule Unknown Completed [facility] HIB 4 Dose Schedule Unknown Completed [facility] HIB 4 Dose Schedule Unknown Completed [facility] HIB 4 Dose Schedule Unknown Completed [facility] MMR Unknown Completed [facility] MMR Unknown Completed [facility] Polio (IPV/OPV) Unknown Completed [facility] Polio (IPV/OPV) Unknown Completed [facility] Polio (IPV/OPV) Unknown Completed [facility] Polio (IPV/OPV) Unknown Completed [facility] Polio (IPV/OPV) Unknown Completed [facility] Meningococcal Unknown Completed [facility] (groups A, C, Y and Branc h W-135) conjugate vaccine (MCV4P) TDAP Unknown Completed [facility] DTAP Unknown Completed [facility] DTP Unknown Completed [facility] DTP Unknown Completed [facility] DTP Unknown Completed [facility] DTP Unknown Completed [facility] DTP Unknown Completed [facility] HIB 4 Dose Schedule Unknown Completed [facility] HIB 4 Dose Schedule Unknown Completed [facility] HIB 4 Dose Schedule Unknown Completed [facility] HIB 4 Dose Schedule Unknown Completed [facility] MMR Unknown Completed [facility] MMR Unknown Completed [facility] Polio (IPV/OPV) Unknown Completed [facility] Polio (IPV/OPV) Unknown Completed [facility] Polio (IPV/OPV) Unknown Completed [facility] Polio (IPV/OPV) Unknown Completed [facility] Polio (IPV/OPV) Unknown Completed [facility] Meningococcal Unknown Completed [facility] (groups A, C, Y and Branc h W-135) conjugate vaccine (MCV4P) TDAP Unknown Completed [facility] DTAP Unknown Completed [facility] DTP Unknown Completed [facility] DTP Unknown Completed [facility] DTP Unknown Completed [facility] DTP Unknown Completed [facility] DTP Unknown Completed [facility] HIB 4 Dose Schedule Unknown Com[facility] HIB 4 Dose Schedule Unknown Com[facility] HIB 4 Dose Schedule Unknown Com[facility] HIB 4 Dose Schedule Unknown Completed [facility] MMR Unknown Completed [facility] MMR Unknown Completed [facility] Polio (IPV/OPV) Unknown Completed [facility] Polio (IPV/OPV) Unknown Completed [facility] Polio (IPV/OPV) Unknown Completed [facility] Polio (IPV/OPV) Unknown Completed [facility] Polio (IPV/OPV) Unknown Completed [facility] Meningococcal Unknown Completed [facility] (groups A, C, Y and Branc h W-135) conjugate vaccine (MCV4P) TDAP Unknown Completed [facility] Vital Signs Vital Name Observation Time Observation Value Comments Source Systolic blood 2023-05-31 19:20:00 109 mm[Hg] [facility] Diastolic blood 2023-05-31 19:20:00 65 mm[Hg] [facility] Heart rate 2023-05-31 19:20:00 118 /min [facility] Body temperature 2023-05-31 19:20:00 37.11 Tiffany [facility] Respiratory rate 2023-05-31 19:20:00 18 /min [facility] Body weight 2023-05-31 19:20:00 43.001 kg [facility] BMI 2023-05-31 19:20:00 19.81 kg/m2 [facility] Systolic blood 2023-05-27 15:01:00 98 mm[Hg] [facility] Diastolic blood 2023-05-27 15:01:00 63 mm[Hg] [facility] Heart rate 2023-05-27 15:01:00 113 /min [facility] Body height 2023-05-27 15:01:00 147.3 cm [facility] Body weight 2023-05-27 15:01:00 42.185 kg [facility] BMI 2023-05-27 15:01:00 19.44 kg/m2 [facility] Branch Oxygen saturation in 2023-05-27 15:01:00 98 /min [facility] Arterial blood by [place] [employer] [facility] Pulse oximetry Branch Systolic blood 2023-05-27 13:47:00 98 mm[Hg] Univer sity of pressure [facility] Diastolic blood 2023-05-27 13:47:00 63 mm[Hg] Unive rsity of pressure [facility] Heart rate 2023-05-27 13:47:00 113 /min [facility] [place] [facility] Body height 2023-05-27 13:47:00 147.3 cm [facility] [place] [facility] Body weight 2023-05-27 13:47:00 42.321 kg [facility] [place] [facility] BMI 2023-05-27 13:47:00 19.50 kg/m2 [facility] [place] [facility] Oxygen saturation in 2023-05-27 13:47:00 98 /min [facility] Arterial blood by [employer] cierra Pulse oximetry Branch Body height 2023-04-28 20:28:00 147.3 cm Universi ty of [facility] Body weight 2023-04-28 20:28:00 44.453 kg Universi ty of [facility] Branch BMI 2023-04-28 20:28:00 20.48 kg/m2 [facility] Body height 2023-03-18 15:41:00 147.3 cm Universi ty of [facility] Body weight 2023-03-18 15:41:00 44.453 kg [facility] BMI 2023-03-18 15:41:00 20.48 kg/m2 [facility] Systolic blood 2023-03-17 21:15:00 124 mm[Hg] Univer sity of pressure [facility] Diastolic blood 2023-03-17 21:15:00 90 mm[Hg] Unive rsity of [facility] Heart rate 2023-03-17 21:15:00 109 /min [facility]i ty of [facility] Body temperature 2023-03-17 21:15:00 36.83 Tiffany Univ ersity of [facility] Respiratory rate 2023-03-17 21:15:00 20 /min Univ ersity of [facility] Body height 2023-03-17 21:15:00 147.3 cm [facility]i ty of [facility] Body weight 2023-03-17 21:15:00 44.725 kg [facility]i ty of [facility] BMI 2023-03-17 21:15:00 20.61 kg/m2 [facility] of [facility] Oxygen saturation in 2023-03-17 21:15:00 100 /min [facility] Arterial blood by [facility] Pulse oximetry Branch Systolic blood 2023-03-08 21:08:00 96 mm[Hg] Univer sity of pressure [facility] Diastolic blood 2023-03-08 21:08:00 65 mm[Hg] Unive rsity of [facility] Heart rate 2023-03-08 21:08:00 105 /min Universi ty of [facility] Respiratory rate 2023-03-08 21:08:00 18 /min Univ ersity of [facility] Body height 2023-03-08 21:08:00 147.3 cm [facility]i ty of [facility] Body weight 2023-03-08 21:08:00 44.906 kg [facility] BMI 2023-03-08 21:08:00 20.69 kg/m2 [facility] Body height 2023-02-22 19:38:00 147.3 cm [facility] Body weight 2023-02-22 19:38:00 53.524 kg [facility] BMI 2023-02-22 19:38:00 24.66 kg/m2 [facility] Systolic blood 2023-02-22 15:55:00 101 mm[Hg] Univer sity of pressure [facility] Diastolic blood 2023-02-22 15:55:00 69 mm[Hg] Unive rsity of pressure [facility] Heart rate 2023-02-22 15:55:00 117 /min [facility] Body height 2023-02-22 15:55:00 147.3 cm [facility] Body weight 2023-02-22 15:55:00 53.524 kg [facility] BMI 2023-02-22 15:55:00 24.66 kg/m2 [facility] Oxygen saturation in 2023-02-22 15:55:00 99 /min [facility] Arterial blood by [facility] Pulse oximetry Branch Systolic blood 2022-12-20 23:06:00 147 mm[Hg] Univer [facility]ity of pressure [place] [facility] [place] Diastolic blood 2022-12-20 23:06:00 85 mm[Hg] Unive rsity of pressure [facility] Respiratory rate 2022-12-20 23:06:00 12 /min Univ ers[facility] [place] [facility] Oxygen saturation in 2022-12-20 23:06:00 96 /min [facility] Arterial blood by [facility] Pulse oximetry Branch Body temperature 2022-12-20 21:57:00 36.72 Tiffany Univ ersity of [facility] Heart rate 2022-12-20 18:39:00 110 /min [facility] Body height 2022-12-17 18:00:00 147.3 cm [facility] [place] [facility] Body weight 2022-12-17 18:00:00 52.844 kg [facility] [place] [facility] BMI 2022-12-17 18:00:00 24.35 kg/m2 [facility] [place] [facility] Systolic blood 2022-12-20 23:06:00 147 mm[Hg] Univer [facility]ity of [facility] Diastolic blood 2022-12-20 23:06:00 85 mm[Hg] Unive rsity of [facility] Respiratory rate 2022-12-20 23:06:00 12 /min Univ [facility] [place] [facility] Oxygen saturation in 2022-12-20 23:06:00 96 /min [facility] Arterial blood by [facility] Pulse oximetry Branch Body temperature 2022-12-20 21:57:00 36.72 Tiffany [facility] [place] [facility] Heart rate 2022-12-20 18:39:00 110 /min [facility] Body height 2022-12-17 18:00:00 147.3 cm [facility] Body weight 2022-12-17 18:00:00 52.844 kg [facility] [place] [facility] BMI 2022-12-17 18:00:00 24.35 kg/m2 [facility] [place] [facility] Heart rate 2022-12-16 17:00:00 103 /min [facility] [place] [facility] Respiratory rate 2022-12-16 17:00:00 13 /min [facility] [place] [facility] Oxygen saturation in 2022-12-16 17:00:00 97 /min [facility] Arterial blood by [facility] Pulse oximetry Branch Systolic blood 2022-12-16 16:05:00 129 mm[Hg] Univer [facility]ity of [facility] Diastolic blood 2022-12-16 16:05:00 86 mm[Hg] Unive rsity of [facility] Body temperature 2022-12-16 16:05:00 37 Tiffany [facility] [place] [facility] Body weight 2022-12-16 09:00:00 56.473 kg [facility] [place] [facility] BMI 2022-12-16 09:00:00 26.02 kg/m2 [facility] [place] [facility] Body height 2022-12-15 09:41:00 147.3 cm [facility] [place] [facility] Systolic blood 2022-12-14 19:09:00 116 mm[Hg] Univer [facility]ity of [facility] [place] [facility] Diastolic blood 2022-12-14 19:09:00 74 mm[Hg] Unive rsity of pressure [facility] Heart rate 2022-12-14 19:09:00 112 /min Universi ty of [facility] Body temperature 2022-12-14 19:09:00 36.5 Tiffany Univ ersity of [facility] Respiratory rate 2022-12-14 19:09:00 18 /min Univ ersity of [facility] Body weight 2022-12-14 19:09:00 53.524 kg [facility] [place] [facility] BMI 2022-12-14 19:09:00 22.30 kg/m2 [facility] of [facility] Systolic blood 2022-12-07 14:27:00 119 mm[Hg] Univer sity of pressure [facility] Diastolic blood 2022-12-07 14:27:00 83 mm[Hg] Unive rsity of pressure [facility] Heart rate 2022-12-07 14:27:00 101 /min [facility] of [facility] Body temperature 2022-12-07 14:27:00 36.67 Tiffany Univ ersity of [facility] Body height 2022-12-07 14:27:00 154.9 cm [facility]i ty of [facility] Body weight 2022-12-07 14:27:00 53.797 kg [facility]i ty of [facility] BMI 2022-12-07 14:27:00 22.41 kg/m2 [facility] [place] [facility] WEIGHT 2022-07-07 04:06:00 52.3 kg [...] [place] Diastolic blood 2022-07-07 11:01:00 63 mm[Hg] [facility] Heart rate 2022-07-07 11:01:00 95 /min [facility] Body temperature 2022-07-07 11:01:00 35.78 Tiffany [facility] Respiratory rate 2022-07-07 11:01:00 18 /min [facility] Oxygen saturation in 2022-07-07 11:01:00 98 /min [facility] Arterial blood by Medical Ce nter Pulse oximetry Body weight 2022-07-07 04:06:00 52.3 kg [facility] BMI 2022-07-07 04:06:00 23.29 kg/m2 [facility] Body height 2022-07-05 05:00:00 149.9 cm [facility] Procedures Procedure Date / Time Performing Clinician Source Performed POCT HEMOGLOBIN A1C TEST 2023-05-27 15:15:00 Avis Vanegas [facility] XR TIBIA FIBULA 2 2023-05-27 14:05:45 Km Brock [facility] XR TIBIA FIBULA 2 2023-04-28 21:13:23 Km Brock [facility] REFERRAL- 2023-04-08 05:01:00 Doctor Unassigned, No [facility] REQUEST/RESPONSE Name [facility] XR TIBIA FIBULA 2 2023-03-17 22:13:11 Minna Walter [facility] CONSENT/REFUSAL FOR 2023-03-17 21:08:54 Doctor Unassigned, No [facility] DIAGNOSIS AND TREATMENT Name [facility] INSURANCE CORRESPONDENCE 2022-12-23 05:01:00 Doctor Unassigned, No [facility] Name [facility] REFERRAL- 2022-12-21 05:01:00 Doctor Unassigned, No [facility] REQUEST/RESPONSE [facility] POCT GLUCOSE (AUTOMATED) 2022-12-20 22:03:00 [facility] ([facility]OMATED) 2022-12-20 22:03:[address] [facility] [place] TIME OR 2022-12-20 21:30:00 Ludy Boyd [facility] (NON-REPORTABLE) [facility] [place] TIME OR 2022-12-20 21:30:00 Ludy Boyd [facility] (NON-REPORTABLE) [facility] TIBIA INTRAMEDULLARY 2022-12-20 19:16:00 Ludy Boyd [facility] NAILING [facility] TIBIA ORIF 2022-12-20 19:16:00 Ludy Boyd [facility] POCT GLUCOSE (AUTOMATED) 2022-12-20 18:57:[address] [facility] POCT GLUCOSE (AUTOMATED) 2022-12-20 18:57:[address] [facility] HB ABO GROUPING 2022-12-20 18:49:00 Ludy Boyd [facility] HB ABO GROUPING 2022-12-20 18:49:00 Ludy Boyd [facility] POCT TEST 2022-12-20 18:45:00 Arnold Asher [facility] POCT TEST 2022-12-20 18:45:00 Arnold Asher [facility] DAY SURGERY - ADC 2022-12-20 05:01:00 Doctor Unassigned, No [facility] POCT GLUCOSE (AUTOMATED) 2022-12-16 16:33:00 Rodolfo Sparrow [facility] POCT GLUCOSE (AUTOMATED) 2022-12-16 14:54:00 Rodolfo Sparrow [facility] BASIC METABOLIC PANEL 2022-12-16 10:28:00 Candido Guillen [facility] (NA, K, CL, CO2, GLUCOSE, Medica l Branch BUN, CREATININE, CA) LIPID PANEL ([id number])(TOTAL 2022-12-16 10:28:00 Candido Guillen [facility] CHOLESTEROL Medical [place] TRIGLYCERIDES, HDL) CBC WITH DIFF 2022-12-16 10:28:00 Candido Guillen [facility] POCT GLUCOSE (AUTOMATED) 2022-12-16 09:20:00 Rodolfo Sparrow [facility] POCT GLUCOSE (AUTOMATED) 2022-12-16 05:20:00 Rodolfo Sparrow [facility] POCT GLUCOSE (AUTOMATED) 2022-12-16 01:12:00 Rodolfo Sparrow [facility] POCT GLUCOSE (AUTOMATED) 2022-12-15 21:35:00 Rodolfo Sparrow [facility] POCT GLUCOSE (AUTOMATED) 2022-12-15 16:19:00 Rodolfo Sparrow [facility] BASIC METABOLIC PANEL 2022-12-15 14:03:00 Juan Miguel [facility] (NA, K, CL, CO2, GLUCOSE, Medica l Branch BUN, CREATININE, CA) POCT GLUCOSE (AUTOMATED) 2022-12-15 12:24:00 Rodolfo Sparrow [facility] BASIC METABOLIC PANEL 2022-12-15 09:06:00 Edgard Bullardhosh [facility] (NA, K, CL, CO2, GLUCOSE, Medica l Branch BUN, CREATININE, CA) POCT GLUCOSE (AUTOMATED) 2022-12-15 09:05:00 Rodolfo Sparrow [facility] POCT GLUCOSE (AUTOMATED) 2022-12-15 05:19:00 Rodolfo Sparrow [facility] BASIC METABOLIC PANEL 2022-12-15 04:07:00 Rodolfo Sparrow [facility] (NA, K, CL, CO2, GLUCOSE, Medica l Branch BUN, CREATININE, CA) POCT GLUCOSE (AUTOMATED) 2022-12-15 04:05:00 Rodolfo Sparrow [facility] URINALYSIS 2022-12-15 03:19:00 Rodolfo Sparrow [facility] POCT GLUCOSE (AUTOMATED) 2022-12-15 03:06:00 Redd, Rodolfo [facility] POCT GLUCOSE (AUTOMATED) 2022-12-15 02:07:00 Rodolfo Sparrow [facility] BETA HYDROXY-BUTYRATE 2022-12-15 01:36:00 Rodolfo Sparrow [facility] BASIC METABOLIC PANEL 2022-12-15 01:36:00 Rodolfo Sparrow [facility] (NA, K, CL, CO2, GLUCOSE, Medica l Branch BUN, CREATININE, CA) POCT GLUCOSE (AUTOMATED) 2022-12-15 01:03:00 Rodolfo Sparrow [facility] XR ANKLE 3+ VW RIGHT 2022-12-15 00:33:50 Rodolfo Sparrow [facility] XR FEMUR 2 VW RIGHT 2022-12-15 00:33:50 Rodolfo Sparrow [facility] XR TIBIA FIBULA 2 VW 2022-12-15 00:33:50 Rodolfo Sparrow [facility] POCT GLUCOSE (AUTOMATED) 2022-12-15 00:05:00 Rodolfo Sparrow [facility] MRSA / MSSA SCREEN BY 2022-12-14 23:11:00 Rodolfo Sparrow [facility] PCR, [facility] POCT GLUCOSE (AUTOMATED) 2022-12-14 23:06:00 Rodolfo Sparrow [facility] POCT GLUCOSE(AGE >30DAYS) 2022-12-14 22:19:00 Ling Camarillo [facility] POCT GLUCOSE (AUTOMATED) 2022-12-14 22:18:00 Rodolfo Sparrow [facility] POCT GLUCOSE(AGE >30DAYS) 2022-12-14 21:06:00 Ling Camarillo [facility] POCT GLUCOSE (AUTOMATED) 2022-12-14 21:02:00 Ling Camarillo [facility] AC PANEL 21 + LACTIC ACID 2022-12-14 19:57:00 Ling Camarillo [facility] PHOSPHORUS 2022-12-14 19:56:00 Ling Camarillo [facility] MAGNESIUM 2022-12-14 19:56:00 Ling Camarillo [facility] COMP. METABOLIC PANEL 2022-12-14 19:56:00 Ling Camarillo [facility] ([id number]) Medical Branch CBC WITH DIFF 2022-12-14 19:56:00 Ling Camarillo [facility] GLYCOSYLATED HEMOGLOBIN 2022-12-14 19:56:00 Ling Camarillo U [facility] (A1C) [facility] POCT GLUCOSE (AUTOMATED) 2022-12-14 19:41:00 Ling Camarillo [facility] CONSENT/REFUSAL FOR 2022-12-14 19:15:29 Doctor Unassigned, No [facility] Name [facility] Branch REFERRAL- 2022-12-14 05:01:00 Doctor Unassigned, No Univer sity [facility] REQUEST/RESPONSE Name Medical Branch REFERRAL- 2022-12-10 05:01:00 Doctor Unassigned, No [facility]RESPONSE Name [facility] POCT TEST 2022-12-07 14:57:00 Dunia Rodriguez Un [facility] ASSIGNMENT OF BENEFITS 2022-12-07 14:07:37 Doctor Unassigned, No [facility] Name [facility] REFERRAL- 2022-11-10 05:01:00 Doctor Unassigned, No [facility]RESPONSE Name Medical Branch REFERRAL- 2022-10-29 05:01:00 Doctor Unassigned, No [facility]/RESPONSE Name [facility] POCT-GLUCOSE METER 2022-07-07 11:04:00 Poppy Manzo [facility] POCT-GLUCOSE METER 2022-07-07 07:53:00 Poppy Manzo [facility] CBC W/PLT COUNT & AUTO 2022-07-07 04:55:[address] [facility] BASIC METABOLIC PANEL 2022-07-07 04:55:00 Johnny Torres [facility] MAGNESIUM 2022-07-07 04:55:00 Antione Todd [facility] PHOSPHORUS 2022-07-07 04:55:00 Antione Todd [facility] CBC W/PLT COUNT & AUTO 2022-07-07 04:55:00 Egland, Carlos [facility] DIFFERENTIAL [facility] POCT-GLUCOSE METER 2022-07-06 21:36:00 Scooby [facility] POCT-GLUCOSE METER 2022-07-06 17:39:00 Scooby [facility] POCT-GLUCOSE METER 2022-07-06 16:38:00 Scooby [facility] POCT-GLUCOSE METER 2022-07-06 16:18:00 [facility] POCT-GLUCOSE METER 2022-07-06 10:56:00 [facility]OLIC PANEL 2022-07-06 08:10:00 Maryanne Meade [facility] BLOOD GAS, VENOUS 2022-07-06 08:10:00 Maryanne Meade [facility] MAGNESIUM 2022-07-06 08:10:00 Maryanne Meade [facility] PHOSPHORUS 2022-07-06 08:10:00 [facility] POCT-GLUCOSE METER 2022-07-06 07:40:00 Mayo Cisse [facility] BASIC METABOLIC PANEL 2022-07-06 05:07:00 Maryanne Meade [facility] BLOOD GAS, VENOUS 2022-07-06 05:07:00 Maryanne Meade [facility] MAGNESIUM 2022-07-06 05:07:00 Maryanne Meade [facility] PHOSPHORUS 2022-07-06 05:07:00 Maryanne Meade [facility] CBC W/PLT COUNT & AUTO 2022-07-06 05:07:00 Carlos Gooden [facility] DIFFERENTIAL [facility] CBC W/PLT COUNT & AUTO 2022-07-06 05:07:00 Carlos Gooden [facility] BASIC METABOLIC PANEL 2022-07-06 01:13:00 Maryanne Meade [facility] BLOOD GAS, VENOUS 2022-07-06 01:13:00 Maryanne Meade [facility] MAGNESIUM 2022-07-06 01:13:00 [facility] PHOSPHORUS 2022-07-06 01:13:00 [facility] POCT-GLUCOSE METER 2022-07-06 00:02:00 [facility]SE [facility]ER 2022-07-05 23:04:00 [facility] POCT-GLUCOSE METER 2022-07-05 22:12:00 [facility] BLOOD GAS, VENOUS 2022-07-05 21:27:00 [facility] 2022-07-05 21:17:00 [facility] 2022-07-05 21:17:00 [facility] BASIC METABOLIC PANEL 2022-07-05 21:17:00 Maryanne Meade [facility] POCT-GLUCOSE METER 2022-07-05 21:15:00 [facility] POCT-GLUCOSE METER 2022-07-05 16:39:00 [facility] POCT-GLUCOSE METER 2022-07-05 15:38:00 [facility] POCT-GLUCOSE METER 2022-07-05 14:24:00 Betito [facility] POCT-GLUCOSE METER 2022-07-05 13:20:00 Betito [facility] POCT-GLUCOSE METER 2022-07-05 12:44:00 Betito [facility] BASIC METABOLIC PANEL 2022-07-05 12:34:00 Maryanne Meade [facility] BLOOD GAS, VENOUS 2022-07-05 12:34:00 Maryanne Meade [facility] MAGNESIUM 2022-07-05 12:34:00 Maryanne Meade [facility] PHOSPHORUS 2022-07-05 12:34:00 [facility] POCT-GLUCOSE METER 2022-07-05 11:37:00 Betito [facility] POCT-GLUCOSE METER 2022-07-05 10:36:00 Betito [facility] POCT-GLUCOSE METER 2022-07-05 09:24:[facility]SE [facility]ER 2022-07-05 08:33:00 Betito [facility] BASIC METABOLIC PANEL 2022-07-05 08:23:00 Maryanne Meade [facility] BLOOD GAS, VENOUS 2022-07-05 08:23:00 [facility] 2022-07-05 08:23:00 Maryanne Meade [facility] PHOSPHORUS 2022-07-05 08:23:00 Maryanne Meade [facility] POCT-GLUCOSE METER 2022-07-05 07:32:00 [facility] 2022-07-05 07:22:00 Maryanne Meade [facility] POCT-GLUCOSE METER 2022-07-05 06:31:00 Yulia Gonzalez [facility] POCT-GLUCOSE METER 2022-07-05 05:30:00 [facility] BLO[facility]URE 2022-07-05 04:44:00 Maryanne Meade [facility] SARS-COV2/INFLUENZA/RSV 2022-07-05 04:33:00 Maryanne Meade [facility] RT-PCR Center HIGH SENSITIVITY TROPONIN 2022-07-05 04:32:00 Maryanne Meade [facility] [place] CBC W/PLT COUNT & AUTO 2022-07-05 04:32:00 Maryanne Meade [facility] TSH/FREE T4 IF INDICATED 2022-07-05 04:32:00 Maryanne Meade [facility] LACTIC ACID, VENOUS 2022-07-05 04:32:00 Maryanne Meade [facility] CBC W/PLT COUNT & AUTO 2022-07-05 04:32:00 Maryanne Meade [facility] BASIC METABOLIC PANEL 2022-07-05 04:32:00 Maryanne Meade [facility] BLOOD GAS, VENOUS 2022-07-05 04:32:00 Maryanne Meade [facility] MAGNESIUM 2022-07-05 04:32:00 Maryanne Meade [facility] PHOSPHORUS 2022-07-05 04:32:00 Maryanne Meade [facility] HEMOGLOBIN A1C 2022-07-05 04:32:00 Maryanne Meade [facility] POCT-GLUCOSE METER 2022-07-05 04:23:00 [facility] POCT-GLUCOSE METER 2022-07-05 02:40:00 [facility] POCT-GLUCOSE METER 2022-07-05 01:32:00 [facility] EKG-SCANNED 2022-07-05 00:00:00 Provider, [facility] Plan of Care Planned Activity Planned Date Details Comments Source Future Scheduled 2023-04-15 Influenza Vaccine (#1) [facility] 00:00:00 [code = Influenza Vaccine [facility] (#1)] Future Scheduled 2023-04-15 INFLUENZA VACCINE (Season [facility] 00:00:00 Ended) [[facility] Future Scheduled 2023-04-15 INFLUENZA VACCINE (Season [facility] Test 00:00:00 Ended) [code = INFLUENZA Med ical [place] VACCINE (Season Ended)] Future Scheduled 2023-04-15 Influenza Vaccine (#1) [facility] 00:00:00 [code = Influenza Vaccine [facility] (#1)] Future Scheduled 2023-04-15 Influenza Vaccine (#1[facility] 00:00:00 [code = Influenza Vaccine [facility] (#1)] Future Scheduled 2023-04-15 Influenza Vaccine (#1[facility] 00:00:00 [code = Influenza Vaccine [facility] (#1)] Future Scheduled 2022-08-[address] [...] measurement (procedure) [facility] [code = [id number]] Future Scheduled 2022-07-[address] [facility] 00[facility]00 [facility] (procedure[facility] [code = [id number]] Future Scheduled 2022-07-[address] [facility] 00:00:00 measurement (procedure) [facility] [code = [id number]] Future Scheduled 2022-07-[address] [address] [facility] 00:00:00 measurement (procedure) [facility] [code = [id number]] Future Scheduled 2022-07-[address] 00:00:00 measurement (procedure) [facility] [code = [id number]] Future Scheduled 2022-07-[address] [address] [facility] 00[facility]00:00 measurement (procedure) [facility] [code = [id number]] Future Scheduled 2022-07-[address] [facility] 00:00:00 measurement (procedure) [facility] [code = [id number]] Future Scheduled 2022-04-15 INFLUENZA VACCINE (#1) [facility] 00:00:00 [code = INFLUENZA VACCINE Me dical Center (#1)] Future Scheduled 2017-01-05 DTAP/TDAP/TD [...] 00:00:00 - Td or Tdap) [[facility] DTAP/TDAP/TD VACCINES (7 - Td or Tdap)] Future Scheduled 2012 Screening for malignant [facility] Test 00:00:00 neoplasm of cervix Medical C enter (procedure) [code = [id number]] Future Scheduled 2012 Screening for malignant [facility] Test 00:00:00 neoplasm of cervix Medical C enter (procedure) [code = [id number]] Future Scheduled 2012 Screening for malignant [facility] Test 00:00:00 neoplasm of cervix Medical C enter (procedure) [code = [id number]] Future Scheduled 2012 Screening for malignant [facility] Test 00:00:00 neoplasm of cervix Medical C enter (procedure) [code = 460640933] Future Scheduled 2012 Screening for malignant [facility] 00:00:00 neoplasm of cervix Medical C enter (procedure) [code = 777614464] Future Scheduled 2012 Screening for malignant [facility] 00:00:00 neoplasm of cervix Medical C enter (procedure) [code = 827523562] Future Scheduled 2012 Screening for malignant [facility] 00:00:00 neoplasm of cervix Medical C enter (procedure) [code = 366043454] Future Scheduled 2011 Lipid panel (procedure) [facility] 00:00:00 [code = 57177178] Medical Ce nter Future Scheduled 2011 Lipid panel (procedure) [facility] 00:00:00 [code = 69908057] Medical Ce nter Future Scheduled 2011 Lipid panel (procedure) [facility] 00:00:00 [code = 85429889] Medical Ce nter Future Scheduled 2011 Lipid panel (procedure) [facility] 00:00:00 [code = 47468431] Medical Ce nter Future Scheduled 2011 Lipid panel (procedure) [facility] 00:00:00 [code = 64204901] Medical Ce nter Future Scheduled 2011 Lipid panel (procedure) [facility] 00:00:00 [code = 57680585] Medical Ce nter Future Scheduled 2011 Lipid panel (procedure) [facility] 00:00:00 [code = 77474124] Medical Ce nter Future Scheduled 2009 HEPATITIS [...] screening [facility] (procedure) [code = 724395724] Future Scheduled [address] [facility] virus screening [facility] (procedure) [code = 098988088] Future Scheduled [address] [facility]00 virus screening [facility] (procedure) [code = 708143412] Future Scheduled [address] [facility] 00:[facility]00 virus screening [facility] (procedure) [code = 455521235] Future Scheduled [address] [address] [facility] Counseling and Screening [facility] ical Center (12+) [code = Tobacco Cessation Counseling and Screening (12+)] Future Scheduled 2001 Diabetic foot examination [facility] 00:00:00 (regime/therapy) [code = [facility] 384307526] Future Scheduled 2001 Urine screening for [facility] 00:00:00 protein (procedure) [code [facility] = 219887874] Future Scheduled 2001 DIABETIC EYE EXAM [code = [facility] 00:00:00 DIABETIC EYE EXAM] Medical C enter Future Scheduled 2001 DIABETIC EYE EXAM [code = [facility] 00:00:00 DIABETIC EYE EXAM] Medical C enter Future Scheduled 2001 Diabetic foot examination [facility] 00:00:00 (regime/therapy) [code = [facility] 786078020] Future Scheduled 2001 Urine screening for [facility] 00:00:00 protein (procedure) [code [facility] = 719543504] Future Scheduled 2001 DIABETIC EYE EXAM [code = [facility] 00:00:00 DIABETIC EYE EXAM] Medical C enter Future Scheduled 2001 Diabetic foot examination [facility] 00:00:00 (regime/therapy) [code = [facility] 181546929] Future Scheduled 2001 Urine screening for [facility] 00:00:00 protein (procedure) [code [facility] = 972263873] Future Scheduled 2001 DIABETIC EYE EXAM [code = [facility] 00:00:00 DIABETIC EYE EXAM] Medical C enter Future Scheduled 2001 Diabetic foot examination [facility] 00:00:00 (regime/therapy) [code = [facility] 480566248] Future Scheduled 2001 Urine screening for [facility] 00:00:00 protein (procedure) [facility] Future Scheduled 2001 DIABETIC EYE EXAM [code = [facility] 00:00:00 DIABETIC EYE EXAM] Medical C enter Future Scheduled 2001 Diabetic foot examination [facility] 00:00:00 (regime/therapy) [code = [facility] 129782991] Future Scheduled 2001 Urine screening for [facility] 00:00:00 protein (procedure) [[facility] 897[facility]0330] Future Scheduled 2001 DIABETIC EYE EXAM [code = [facility] 00:00:00 DIABETIC EYE EXAM] Medical C enter Future Scheduled 2001 Diabetic foot examination [facility] 00:00:00 (regime/therapy) [code = [facility] 437014051] Future Scheduled 2001 Urine screening for [facility] 00:00:00 protein (procedure) [code [facility] = 006559766] Future Scheduled 2001 DIABETIC EYE EXAM [code = [facility] 00:00:00 DIABETIC EYE EXAM] Medical C enter Future Scheduled 2001 Diabetic foot examination [facility] 00:00:00 (regime/therapy) [code = [facility] 164808962] Future Scheduled 2001 Urine screening for [facility] 00:00:00 protein (procedure) [code [facility] = 782653933] Future Scheduled 1997 Pneumococcal Vaccine: [facility]:00 0-64 Years (1 - PCV) Medical Center [code = Pneumococcal Vaccine: 0-64 Years (1 - PCV)] Future Scheduled 1997 PNEUMOCOCCAL VACCINE 0-[address] [facility] 00:00:00 YRS (1 - PCV) [code = [facility] PNEUMOCOCCAL VACCINE 0-64 YRS (1 - PCV)] [...] YRS (1 - PCV)] Future Scheduled 1997 Pneumococcal Vaccine: [facility]00 0-64 Years (1 - PCV) Medical Center [code = Pneumococcal Vaccine: 0-64 Years (1 - PCV)] Future Scheduled 1997 Pneumococcal Vaccine: [facility]:00 0-64 Years (1 - PCV) Medical Center [code = Pneumococcal Vaccine: 0-64 Years (1 - PCV)] Future Scheduled 1997 Pneumococcal Vaccine: [facility]:00 0-64 Years (1 - PCV) Medical Center [code = Pneumococcal Vaccine: 0-64 Years (1 - PCV)] Future Scheduled 1991 COVID-19 [...] 1991 COVID-19 VACCINE (#1[facility] [code = COVID-19 VACCINE [facility] (#1)] Encounters Start End Encounter Admission Attending Care Care Encounter Source Date/Time Date/Time Type Type Clinicians Facility Department ID 2023-09-27 2023-09-27 Outpatient R ROMINA [facility] [id number] Univers 15:00:00 15:00:00 [facility] 2023-06-15 Telephone [facility] 1.2.135.256 [id number] Univers 00:00:00 00:00:00 Elizabeth Bangura MULTISPEC 350.1.13.10 ity [facility] 4.2.7.2.686 [facility] [place] [id number] [facility] AND SANTIZO [address] [facility] 2023-06-07 2023-06-07 Outpatient [facility] [id number] Univers 14:30:00 14:30:00 [facility] 2023-05-31 2023-05-31 Nurse Nurse, [facility] 1.2.840.114 [id number] Univers 14:30:00 14:30:00 [facility].7.2.[facility] [phone] Me dical NAL [address] BU[address] 2023-05-31 2023-05-31 Outpatient R DUNIA RODRIGUEZ [facility] U TMB [id number] Univers 14:30:00 14:22:26 [facility] 2023-05-27 2023-05-27 Hospital Vinod [facility] 1.2.840.114 [id number] Univers 08:46:11 23:59:00 Encounter [facility] 350.1.13.10 ity [facility] 4.2.7.2.686 Dwight as NAOMI?BLEA [phone] Me dical HA [address] MEDICAL OFFICE BUILDING 2023-05-27 2023-05-27 Outpatient R ROMINA [facility] [id number] Univers 11:00:00 11:23:30 AVIS gan [facility] 2023-05-27 2023-05-27 Office [facility] 1.2.840.114 [id number] Univers 11:00:00 11:23:30 Visit [facility] HEALTH 350.1.13.10 it y of [place] 4.2.7.2.686 Dwight as NAOMI?BLEA [phone] Me tisha BONNER [address] [facility] OFFICE [facility] 2023-05-27 2023-05-27 Office [facility] 1.2.840.114 [id number] Univers 09:30:00 09:45:00 Visit [facility] HEALTH 350.1.13.10 it y of [place] 4.2.7.2.686 Dwight as NAOMI?BLEA [id number] Me tisha BONNER [address] [facility] 2023-05-19 2023-05-19 Telephone [facility] 1.2.478.623 [id number] Univers 00:00:00 00:00:00 [facility] HEALTH 350.1.13.10 it y of [place] 4.2.7.2.686 Dwight as NAOMI?BLEA [phone] Me tisha BONNER [address] [facility] 2023-05-18 2023-05-18 Outpatient Nalini BROCK [facility] [id number] Univers 13:45:00 13:45:00 KM [facility] 2023-05-18 2023-05-18 Outpatient R DEB [facility] [id number] Univers 13:00:00 13:00:00 LUDY [facility] 2023-05-11 2023-05-11 Drapery Inspector Lab, Ang - Db [facility] 1.2.840.1 14 [id number] Univers 10:00:00 10:15:00 Visit Km Brock [facility] 350.1.13.10 ity of [place] 4.2.7.2.686 Dwight as NAOMI?BLEA [phone] Me tisha BONNER [address] [facility] OFFICE [facility] 2023-05-11 2023-05-11 Outpatient R [facility] [id number] Univers 10:00:00 10:00:00 [facility] 2023-05-05 2023-05-05 Telephone Romina [facility] 1.2.807.035 [id number] Univers 00:00:00 00:00:00 Avis HEALTH 350.1.13.10 it y of [place] 4.2.7.2.686 Dwight as NAOMI?BLEA [id number] Sd tisha BONNER [address] [facility] OFF[facility] 2023-04-28 2023-04-28 Outpatient R [facility] [id number] Univers 16:05:00 23:59:00 [facility] 2023-04-28 2023-04-28 [facility] 1.2.840.114 [id number] Univers 16:05:00 23:59:00 Encounter Km S HEALTH 350.1.13.10 ity of [place] 4.2.7.2.686 Dwight as NAOMI?BLEA [id number] Sd tisha BONNER [address] [facility] OFF[facility] 2023-04-28 2023-04-28 Office [facility] 1.2.840.114 [id number] Univers 16:15:00 16:24:16 Visit Km S HEALTH 350.1.13.10 it y of [place] 4.2.7.2.686 Dwight as NAOMI?BLEA [phone] Sd tisha BONNER [address] [facility] OFF[facility] 2023-04-25 2023-04-25 Telephone [facility] 1.2.840.114 [id number] Univers 00:00:00 00:00:00 Ludy L HEALTH 350.1.13.10 it y of [place] 4.2.7.2.686 Dwight as NAOMI?BLEA [phone] Sd tisha BONNER [address] [facility] OFF[facility] 2023-04-08 2023-04-08 Orders Doctor CLARK 1.2.840.114 [id number] Univers 00:00:00 00:00:00 Only Unassigned, HERNAN 350.1.13.10 ity of [place] [facility] 4.2.7.2.686 Dwight as [phone] [facility] [address] 2023-03-22 2023-03-22 Patient Doctor AMBER 1.2.840.114 [id number] Univers 00:00:00 00:00:00 Secure Msg Unassigned, HERNAN 350.1.13.10 ity of [place] [facility] 4.2.7.2.686 Dwight as [id number] [facility] [address] 2023-03-18 2023-03-18 Office [facility] 1.2.815.269 [id number] Univers 11:00:00 11:00:00 [facility] 350.1.13.10 it [facility] 4.2.7.2.686 Dwight as NAOMI?BLEA [phone] Sd tisha BONNER [address] [place] [address] MEDICAL OFFICE [facility] 2023-03-18 2023-03-18 Outpatient R DE[facility]SELECT [facility] [id number] Univers 11:00:00 10:56:46 LUDY ity of [facility] 2023-03-17 2023-03-17 Emergency X Minna WALTER [facility] ERT [id number] Univers 16:18:00 19:47:00 ity of [facility] 2023-03-17 2023-03-17 Emergency Minna Walter [facility] 1.2.840.114 [id number] Univers 16:18:00 19:47:00 Codie OTTO 350.1.13.10 i ty of [place]2.7.2.686 [place] [facility] [phone] [facility] [address] 2023-03-15 2023-03-15 Patient Doctor [facility] 1.2.840.114 [id number] Univers 00:00:00 00:00:00 Secure Msg Unassigned, HEALTH 350.1.13.10 ity of [place] 4.2.7.2.686 Dwight as NAOMI?BLEA [id number] Sd tisha BONNER [address] MEDICAL OFFICE BUILDING 2023-03-14 2023-03-14 Telephone Romina [facility] 1.2.051.410 [id number] Univers 00:00:00 00:00:00 Avis HEALTH 350.1.13.10 it y [facility] 4.2.7.2.686 Dwight as NAOMI?BLEA [phone] Sd tisha BONNER [address] [facility] OFFICE [facility] 2023-03-08 2023-03-08 Outpatient R SHRADDHAKENYATTA TIANSOL [facility] U T[facility] [id number] Univers 15:30:00 16:07:22 DUNIA RODRIGUEZ ity of [facility] 2023-03-08 2023-03-08 Nurse Nurse, [facility] 1.2.840.114 [id number] Univers 15:30:00 16:07:22 Visit Steph Rodriguezl [place] 350.1.1 3.10 ity of [place] 4.2.7.2.686 [place] [phone] Sd tisha THOMAS 134 [facility] 2023-03-01 2023-03-01 Patient Doctor AMBER 1.2.840.114 [id number] Univers 00:00:00 00:00:00 Secure Msg Unassigned, HERNAN 350.1.13.10 ity of [place] [facility] 4.2.7.2.686 Dwight as [id number] [address] 2023-02-22 2023-02-22 Office Vinod [facility] 1.2.840.114 [id number] Univers 15:00:00 15:15:00 Visit [facility] 350.1.13.10 it y of [place] 4.2.7.2.686 Dwight as NAOMI?BLEA [phone] Sd diceve BONNER [address] [facility] OFFICE [facility] 2023-02-22 2023-02-22 Office Romina [facility] 1.2.840.114 [id number] Univers 11:00:00 12:31:35 Visit [facility] 350.1.13.10 it y of [place] 4.2.7.2.686 Dwight as NAOMI?BLEA [phone] Sd diceve BONNER [address] [facility] OFFICE [facility] 2023-02-22 2023-02-22 Outpatient R ROMINA NMVICKIE [facility] [id number] Univers 11:00:00 12:31:35 AVIS ity of [facility] 2023-02-03 2023-02-03 Outpatient R VINOD, [facility] [id number] Univers 15:00:00 15:00:00 [facility] 2023-01-14 2023-01-14 Emergency EM [facility] [id number] [facility] 17:34:00 18:32:00 [facility] [place] 2023-01-03 2023-01-03 Outpatient Nalini BROCK [facility] [id number] Univers 15:40:00 23:59:00 KM elvia [facility] 2023-01-03 2023-01-03 Office [facility] 1.2.840.114 [id number] Univers 15:45:00 16:15:00 Visit Km Edge [facility] 350.1.13.10 it y [facility] 4.2.7.2.686 Dwight as NAOMI?BLEA [id number] [address] MEDICAL OFFICE [facility] 2022-12-25 2022-12-25 Patient Doctor AMBER 1.2.840.114 [id number] Univers 00:00:00 00:00:00 Secure Msg Unassigned, HERNAN 350.1.13.10 ity of [place] [facility] 4.2.7.2.686 Dwight as [phone] [facility] [address] 2022-12-23 2022-12-23 Orders Doctor AMBER 1.2.840.114 [id number] Univers 00:00:00 00:00:00 Only Unassigned, HERNAN 350.1.13.10 ity of [place] [facility] 4.2.7.2.686 Dwight as [id number] [facility] [address] 2022-12-21 2022-12-21 Orders Doctor AMBER 1.2.840.114 [id number] Univers 00:00:00 00:00:00 Only Unassigned, HERNAN 350.1.13.10 ity of [place] [facility] 4.2.7.2.686 Dwight as [id number] [address] 2022-12-21 2022-12-21 Telephone Deb [facility] 1.2.840.114 10 [id number] Univers 00:00:00 00:00:00 Ludy Montelongo HEALTH 350.1.13.10 it y [facility] 4.2.7.2.686 Dwight as NAOMI?BLEA [id number] Sd randyeve BONNER [address] MEDICAL OFFICE BUILDING 2022-12-20 2022-12-20 Surgery [facility] 1.2.775.770 [id number] Univers 15:50:00 19:51:00 Ludy MENJIVAR 350.1.13.10 i ty of [facility] 4.2.7.2.686 [place] SUR[place] [id number] [facility] [address] 2022-12-20 2022-12-20 Outpatient R [facility] SOR [id number] Univers 13:33:00 19:01:00 LUDY ity of [facility] 2022-12-20 2022-12-20 Hospital [facility] 1.2.840.114 [id number] Univers 13:33:00 19:01:00 Encounter Ludy MENJIVAR 350.1.13.10 ity of [place] 4.2.7.2.[place] [id number] [facility] [address] 2022-12-20 2022-12-20 Orders Doctor AMBER 1.2.840.114 [id number] Univers 00:00:00 00:00:00 Only Unassigned, HERNAN 350.1.13.10 ity of [place] [facility] 4.2.7.2.686 Dwight as [id number] [facility] [address] 2022-12-17 2022-12-17 Telephone [facility] 1.2.840.114 10 [id number] Univers 00:00:00 00:00:00 Ludy Montelongo HEALTH 350.1.13.10 it y of [place] 4.2.7.2.686 Dwight as NAOMI?BLEA [id number] Sd tisha [address]ONNER [address] MEDICAL OFFICE [facility] 2022-12-17 2022-12-17 Transition SHON Reyes 1.2.840.114 [id number] Univers 00:00:00 00:00:00 of Care Cynthia MONTESY 350.1.13.10 i ty of [place]2.7.2.[place] [id number] [facility] [address] 2022-12-14 2022-12-16 Inpatient X JUAN MIGUEL [facility] [id number] Univers 14:13:00 15:52:00 GARRETT abdi f [facility] 2022-12-14 2022-12-16 Hospital Ling Cam[place]illo [facility] 1.2.84 0.114 [id number] Univers 14:13:00 15:52:00 Encounter Rodolfo Sparrow 350.1.13.10 ity of [place] 4.2.7.2.686 [facility] [phone] [facility] [address] 2022-12-14 2022-12-14 Outpatient R DUNIA RODRIGUEZ [facility] U T[facility] [id number] Univers 14:00:00 14:08:23 DUNIA RODRIGUEZ ity of [facility] 2022-12-14 2022-12-14 Nurse Nurse, [facility] 1.2.840.114 [id number] Univers 14:00:00 14:08:23 Visit Dunia Rodriguez 350.1.1 3.10 ity of [place].2.7.2.686 [place] [id number] Sd diceve NAL 134 [facility] 2022-12-14 2022-12-14 Telephone [facility] 1.2.840.114 10 [id number] Univers 00:00:00 00:00:00 [facility] Xingyun.cn 350.1.13.10 it y of [place] 4.2.7.2.686 Dwight as NAOMI?BLEA [id number] Sd dical HA [address] [facility] OFFICE [facility] 2022-12-10 2022-12-10 Telephone [facility] 1.2.840.114 [id number] Univers 00:00:00 00:00:00 [facility] Xingyun.cn 350.1.13.10 it y of [place] 4.2.7.2.686 Dwight as NAOMI?BLEA [id number] Sd dical SUZANNEEY [address] [facility] OFFICE [facility] 2022-12-10 2022-12-10 Orders Doctor CLARK 1.2.840.114 [id number] Univers 00:00:00 00:00:00 Only Unassigned, HERNAN 350.1.13.10 ity of [place] [facility] 4.2.7.2.686 Dwight as [id number] [address] 2022-12-07 2022-12-07 Outpatient R DUNIA RODRIGUEZ [facility] U [facility] [id number] Univers 09:00:00 09:59:50 STEPH RODRIGUEZL ity [facility] 2022-12-07 2022-12-07 Office [facility] 1.2.840.114 10 [id number] [facility] 09:00:00 09:59:50 Visit sStephl [place] 350.1.13.10 ity of [place]2.7.2.[place] [phone] Sd dical [facility] [address] BU[address] 2022-12-07 2022-12-07 Orders Doctor CLARK 1.2.840.114 [id number] Univers 00:00:00 00:00:00 Only Unassigned, HERNAN 350.1.13.10 ity of [place] [facility] 4.2.7.2.686 Dwight as [id number] [address] 2022-11-16 2022-11-16 Outpatient R DUNIA RODRIGUEZ [facility] U T[facility] [id number] Univers 14:30:00 14:30:00 DUNIA RODRIGUEZ ity [facility] 2022-11-10 2022-11-10 Orders Doctor CLARK 1.2.840.114 [id number] Univers 00:00:00 00:00:00 Only Unassigned, HERNAN 350.1.13.10 ity of [place] [facility] 4.2.7.2.686 Dwight as [id number] [address] 2022-11-04 2022-11-04 Telephone Alok [facility] 1.2.840.114 10 [id number] Univers 00:00:00 00:00:00 Neymar Digerati 350.1.13.10 it y of [place] 4.2.7.2.686 Dwight as NAOMI?BLEA [id number] Sd dical KNEY [address] MEDICAL OFFICE BUILDING 2022-10-29 2022-10-29 Orders Doctor AMBER 1.2.840.114 [id number] Univers 00:00:00 00:00:00 Only Unassigned, HERNAN 350.1.13.10 ity of [place] [facility] 4.2.7.2.686 Dwight as [id number] [address] 2022-07-05 2022-07-07 Hospital ER [facility] [id number] [facility] 01:07:00 16:32:00 Encounter Mayo Cisse, [facility] 2022-07-05 2022-07-07 Inpatient ER [facility] ICU [id number] [facility] 01:07:00 16:32:00 [facility] 2022-07-05 2022-07-07 [facility] [id number] [facility] 01:07:00 16:32:00 Encounter Mayo Cisse, [facility] 2020-12-12 2020-12-12 Outpatient R ALOK [facility] [id number] Univers 13:30:00 13:30:00 NEYMAR gan [facility] 2020-07-28 2020-07-28 Patient [facility] 1.2.440.973 [id number] Univers 00:00:00 00:00:00 Secure Msg Neymar MENJIVAR 350.1.13.10 ity of [place].2.[place] [id number] Sd dical [address] 2020-06-20 2020-06-20 Office [facility] 1.2.706.972 [id number] 10:27:33 12:32:24 Visit Neymar Menjivar 350.1.13.10 [place] 4.2.7.2.686 Professio [id number] [address] 2020-06-20 2020-06-20 Outpatient R [facility] [id number] Univers 11:00:00 11:00:00 NEYMAR gan [facility] 2018-07-27 2018-07-27 Outpatient ROHAN Fuchs W [id number] [place] 10:52:00 10:52:00 Millie Erwin kiki [facility] 2018-06-14 2018-06-14 Outpatient ROHAN Fuchs W [id number] 1 [place] 11:19:00 11:19:00 Jeffry Campbell [facility] 2018-05-23 2018-05-23 Outpatient ROHAN Yu W [id number] [facility] 16:00:00 16:00:00 [facility] Results Test Description Test Time Test Comments Results Result Comments Source POCT HEMOGLOBIN A1C TEST 2023-05-27 15:16:00 Test Item Value Reference Range Interpretation Comme nts POCT HBA1C (test code = 4548-4) 8.2 % 4-6 A Lab Interpretation (test code = 58913-6) Abnormal [facility] HEMOGLOBIN A1C [id number] 15:16:00 Test Item Value Reference Range Interpretation Comments POCT HBA1C (test code = 4548-4) 8.2 % 4-6 A Lab Interpretation (test code = Abnormal 80008-3) [facility] HEMOGLOBIN A1C [id number] 15:16:00 Test Item Value Reference Range Interpretation Comments POCT HBA1C (test code = 4548-4) 8.2 % 4-6 A Lab Interpretation (test code = Abnormal 04010-0) [facility] GLUCOSE (AUTOMATED)2022-12-20 22:04:26 Test Item Value Reference Range Interpretation Comments POCT GLU (test code = 3478009973) 233 mg/dL 70-110 H Lab Interpretation (test code = Abnormal 60315-8) [facility] GLUCOSE (AUTOMATED)2022-12-20 22:04:26 Test Item Value Reference Range Interpretation Comments POCT GLU (test code = 1854402894) 233 mg/dL 70-110 H Lab Interpretation (test code = Abnormal 44893-7) [facility] GLUCOSE (AUTOMATED)2022-12-20 18:58:22 Test Item Value Reference Range Interpretation Comments POCT GLU (test code = 2442600570) 244 mg/dL 70-110 H Lab Interpretation (test code = Abnormal 68341-1) [facility] GLUCOSE (AUTOMATED)2022-12-20 18:58:22 Test Item Value Reference Range Interpretation Comments POCT GLU (test code = 8950018535) 244 mg/dL 70-110 H Lab Interpretation (test code = Abnormal 58848-2) [facility] [id number] 18:54:00 Test Item Value Reference Range Interpretation Comments ABO & RH (test code = 20) A Positive IAT (test code = 1185) Negative [facility] and Screen - ONCE [id number] 18:54:00 Test Item Value Reference Range Interpretation Comments ABO & RH (test code = 20) A Positive IAT (test code = 1185) Negative [facility] [id number] 18:50:00 Test Item Value Reference Range Interpretation Comments POCT PREG (test code = 1605) Negative On board controls acceptable with Yes C Line (test code = 3574) POCT PREG LOT # (test code = 3575) [id number] POCT PREG TEST DATE (test 11/13/23 code = 3576) Lab Interpretation (test code = Normal 43917-9) [facility] [id number] 18:50:00 Test Item Value Reference Range Interpretation Comments POCT PREG (test code = 1605) Negative On board controls acceptable with Yes C Line (test code = 3574) POCT PREG LOT # (test code = 3575) [id number] POCT PREG TEST DATE (test 11/13/23 code = 3576) Lab Interpretation (test code = Normal 83552-1) [facility] GLUCOSE (AUTOMATED)2022-12-16 16:34:30 Test Item Value Reference Range Interpretation Comments POCT GLU (test code = 9205856876) 268 mg/dL 70-110 H Lab Interpretation (test code = Abnormal 59350-5) [facility] GLUCOSE (AUTOMATED)2022-12-16 14:56:28 Test Item Value Reference Range Interpretation Comments POCT GLU (test code = 8749286649) 253 mg/dL 70-110 H Lab Interpretation (test code = Abnormal 96850-4) [facility] GLUCOSE (AUTOMATED)2022-12-16 09:22:01 Test Item Value Reference Range Interpretation Comments POCT GLU (test code = 1279211731) 219 mg/dL 70-110 H Lab Interpretation (test code = Abnormal 54728-9) [facility] GLUCOSE (AUTOMATED)2022-12-16 05:24:27 Test Item Value Reference Range Interpretation Comments POCT GLU (test code = 9673882020) 277 mg/dL 70-110 H Lab Interpretation (test code = Abnormal 46632-3) [facility] GLUCOSE (AUTOMATED)2022-12-16 01:22:50 Test Item Value Reference Range Interpretation Comments POCT GLU (test code = 6355031462) 176 mg/dL 70-110 H Lab Interpretation (test code = Abnormal 61266-6) [facility] GLUCOSE (AUTOMATED)2022-12-15 21:36:35 Test Item Value Reference Range Interpretation Comments POCT GLU (test code = 3294816412) 214 mg/dL 70-110 H Lab Interpretation (test code = Abnormal 69687-7) [facility] GLUCOSE (AUTOMATED)2022-12-15 16:19:59 Test Item Value Reference Range Interpretation Comments POCT GLU (test code = 4455599890) 183 mg/dL 70-110 H Lab Interpretation (test code = Abnormal 83294-1) [facility] GLUCOSE (AUTOMATED)2022-12-15 12:25:47 Test Item Value Reference Range Interpretation Comments POCT GLU (test code = 0184415937) 242 mg/dL 70-110 H Lab Interpretation (test code = Abnormal 22435-5) [facility] GLUCOSE (AUTOMATED)2022-12-15 09:09:50 Test Item Value Reference Range Interpretation Comments POCT GLU (test code = 2806227238) 295 mg/dL 70-110 H Lab Interpretation (test code = Abnormal 75339-7) [facility] GLUCOSE (AUTOMATED)2022-12-15 05:22:24 Test Item Value Reference Range Interpretation Comments POCT GLU (test code = 7003246741) 128 mg/dL 70-110 H Lab Interpretation (test code = Abnormal 70186-2) [facility] GLUCOSE (AUTOMATED)2022-12-15 04:10:00 Test Item Value Reference Range Interpretation Comments POCT GLU (test code = 8747804517) 97 mg/dL 70-110 Lab Interpretation (test code = Normal 50949-1) [facility] GLUCOSE (AUTOMATED)2022-12-15 03:10:48 Test Item Value Reference Range Interpretation Comments POCT GLU (test code = 7005468298) 103 mg/dL 70-110 Lab Interpretation (test code = Normal 06283-4) [facility] GLUCOSE (AUTOMATED)2022-12-15 02:12:04 Test Item Value Reference Range Interpretation Comments POCT GLU (test code = 6328357418) 118 mg/dL 70-110 H Lab Interpretation (test code = Abnormal 89909-7) [facility] GLUCOSE (AUTOMATED)2022-12-15 01:05:21 Test Item Value Reference Range Interpretation Comments POCT GLU (test code = 1838624337) 161 mg/dL 70-110 H Lab Interpretation (test code = Abnormal 21529-5) [facility] GLUCOSE (AUTOMATED)2022-12-15 00:11:30 Test Item Value Reference Range Interpretation Comments POCT GLU (test code = 9186318112) 196 mg/dL 70-110 H Lab Interpretation (test code = Abnormal 15200-4) [facility] GLUCOSE (AUTOMATED)2022-12-14 23:07:32 Test Item Value Reference Range Interpretation Comments POCT GLU (test code = 0849195699) 195 mg/dL 70-110 H Lab Interpretation (test code = Abnormal 38593-5) [facility] GLUCOSE (AUTOMATED)2022-12-14 22:19:16 Test Item Value Reference Range Interpretation Comments POCT GLU (test code = 8976913598) 237 mg/dL 70-110 H Lab Interpretation (test code = Abnormal 22310-9) [facility] GLUCOSE(AGE >30DAYS)2022-12-14 22:19:00 Test Item Value Reference Range Interpretation Comments POCT Glu (age>30days) (test code = 237 mg/dL 70-110 A 3342) Lab Interpretation (test code = Abnormal 28052-6) [facility] GLUCOSE (AUTOMATED)2022-12-14 21:06:09 Test Item Value Reference Range Interpretation Comments POCT GLU (test code = 3983606212) 335 mg/dL 70-110 H Lab Interpretation (test code = Abnormal 30771-7) [facility] GLUCOSE(AGE >30DAYS)2022-12-14 21:06:00 Test Item Value Reference Range Interpretation Comments POCT Glu (age>30days) (test code = 335 mg/dL 70-110 A 3342) Lab Interpretation (test code = Abnormal 82431-4) [facility] GLUCOSE (AUTOMATED)2022-12-14 19:43:16 Test Item Value Reference Range Interpretation Comments POCT GLU (test code = 5174690891) 469 mg/dL 70-110 HH Lab Interpretation (test code = Abnormal 71560-3) [facility] GLUCOSE(AGE >30DAYS)2022-12-14 19:41:00 Test Item Value Reference Range Interpretation Comments POCT Glu (age>30days) (test code = 469 mg/dL 70-110 A 3342) Lab Interpretation (test code = Abnormal 62423-1) [facility] [id number] 14:57:00 Test Item Value Reference Range Interpretation Comments POCT PREG (test code = 1605) Negative On board controls acceptable with C Yes Line (test code = 3574) POCT PREG LOT # (test code = 3575) POCT PREG TEST DATE (test code = 3576) [facility] [id number] 14:57:00 Test Item Value Reference Range Interpretation Comments POCT PREG (test code = 1605) Negative On board controls acceptable with C Yes Line (test code = 3574) POCT PREG LOT # (test code = 3575) POCT PREG TEST DATE (test code = 3576) [facility] [id number] 07:01:24 Test Item Value Reference Range Interpretation Comments CULTURE (BEAKER) (test No growth in 5 days code = 1095) POC-Glucose [id number] 11:21:34 Test Item Value Reference Range Interpretation Comments POC-Glucose Meter (test 258 mg/dL 70-110 H : TE STED AT [facility] code = 1538) [address] [facility], 770 30: Push Connector Assembler/Techni yessi ID = [id number] for ELIAN, SHASTAN IE Lab Interpretation (test Abnormal code = 43072-3) [facility] [id number] 11:21:34 Test Item Value Reference Range Interpretation Comments POC-Glucose Meter (test 258 mg/dL 70-110 H : TE STED AT [facility] code = 1538) [address] [place] [address], 770 30: Push Connector Assembler/Techni yessi ID = [id number] for ELIAN, SHASTAN IE Lab Interpretation (test Abnormal code = 12228-5) [facility] [id number] 11:21:34 Test Item Value Reference Range Interpretation Comments POC-Glucose Meter (test 258 mg/dL 70-110 H : TE STED AT [facility] code = 1538) [address] [place] [address], 770 30: Push Connector Assembler/Techni yessi ID = [id number] for ELIAN, SHASTAN IE Lab Interpretation (test Abnormal code = 70484-3) [facility]-Glucose [id number] 11:21:34 Test Item Value Reference Range Interpretation Comments POC-Glucose Meter (test 258 mg/dL 70-110 H : TE STED AT [facility] code = 1538) [address] [place] [address], 770 30: Push Connector Assembler/Techni yessi ID = [id number] for ELIAN, SHASTAN IE Lab Interpretation (test Abnormal code = 41280-1) [facility]-Glucose [id number] 11:21:34 Test Item Value Reference Range Interpretation Comments POC-Glucose Meter (test 258 mg/dL 70-110 H : TE STED AT [facility] code = 1538) [address] [place] [address], 770 30: Push Connector Assembler/Techni yessi ID = [id number] for ELIAN, SHASTAN IE Lab Interpretation (test Abnormal code = 16761-3) [facility] [id number] 11:21:34 Test Item Value Reference Range Interpretation Comments POC-Glucose Meter (test 258 mg/dL 70-110 H : TE STED AT [facility] code = 1538) [address] [place] [address], 770 30: Push Connector Assembler/Techni yessi ID = [id number] for ELIAN, SHASTAN IE Lab Interpretation (test Abnormal code = 42079-3) [facility] [id number] 11:21:34 Test Item Value Reference Range Interpretation Comments POC-Glucose Meter (test 258 mg/dL 70-110 H : TE STED AT [facility] code = 1538) [address] [facility], 770 30: Push Connector Assembler/Techni yessi ID = [id number] for CLAYTON PLUMMER IE Lab Interpretation (test Abnormal code = 98356-6) [facility] [id number] 11:21:34 Test Item Value Reference Range Interpretation Comments POC-GLUCOSE METER 258 mg/dL 70-110 H : [facility] ([facility]ER[facility] (test code [facility], = 1538) 03682: Push Connector Assembler/Techni yessi ID = [id number] for MARGARITA ERAZO POCT-GLUCOSE [id number] 08:11:52 Test Item Value Reference Range Interpretation Comments POC-GLUCOSE METER 139 mg/dL 70-110 H : [facility] (BEAKER[facility] (test code [facility], = 1538) 18996: Push Connector Assembler/Techni yessi ID = [id number] for MARGARITA ERAZO BASIC METABOLIC [id number] 06:34:19 Test Item Value Reference Range Interpretation [...] not appl icable for dialysis patien ts Push Connector Assembler ID - MEET [id number] 06:34:19 Test Item Value Reference Range Interpretation Comments MAGNESIUM (BEAKER) (test code = 1.8 mg/dL 1.6-2.6 627) Push Connector Assembler ID - MEET [id number] 06:34:19 Test Item Value Reference Range Interpretation Comments PHOSPHORUS (BEAKER) (test code = 3.0 mg/dL 2.3-4.7 604) Push Connector Assembler ID - MEET [facility] W/PLT COUNT & AUTO [id number] 05:12:05 Test Item Value Reference Range Interpretation [...] PERCENT (BEAKER) (test code = 2801) POCT-GLUCOSE [id number] 21:47:45 Test Item Value Reference Range Interpretation Comments POC-GLUCOSE METER 286 mg/dL 70-110 H : TESTED A T [facility] 6720 (BEAKER) (test code = [facility], 1538) 32381: Push Connector Assembler/Techni yessi ID = [id number] for LESLI BE, UDATU POCT-GLUCOSE [id number] 17:50:44 Test Item Value Reference Range Interpretation Comments POC-GLUCOSE METER 68 mg/dL 70-110 L : TESTED A T [facility] 6720 (BEAKER) (test code = [facility], 1538) 36005: Push Connector Assembler/Techni yessi ID = [id number] for WILL IS, RAJI POCT-GLUCOSE [id number] 16:49:27 Test Item Value Reference Range Interpretation Comments POC-GLUCOSE METER 72 mg/dL 70-110 : TESTED A T [facility] 6720 (BEAKER) (test code = [facility], 1538) 39247: Push Connector Assembler/Techni yessi ID = [id number] for Arcelia porras (contract), Tiffany david POCT-GLUCOSE [id number] 16:31:02 Test Item Value Reference Range Interpretation Comments POC-GLUCOSE METER 52 mg/dL 70-110 L : TESTED A T [facility] 6720 (BEAKER) (test code = NATALIE Gayle [facility], 1538) 51155: Push Connector Assembler/Techni yessi ID = [id number] for Arcelia porras (contract), Tiffany david POCT-GLUCOSE [id number] 11:09:38 Test Item Value Reference Range Interpretation Comments POC-GLUCOSE METER 197 mg/dL 70-110 H : TESTED A T [facility] 6720 (BEAKER) (test code WILLIE [facility], = 1538) 92863: Push Connector Assembler/Techni yessi ID = [id number] for Arcelia porras (contract), Tiffany david BLOOD GAS, [id number] 09:37:51 Test Item Value Reference Range Interpretation [...] (test code = 1819) 21.0 BASIC METABOLIC [id number] 09:05:04 Test Item Value Reference Range Interpretation [...] not appl icable for dialysis patien ts Push Connector Assembler ID - PIDICK [id number] 08:57:01 Test Item Value Reference Range Interpretation Comments MAGNESIUM (BEAKER) 2.0 mg/dL 1.6-2.6 Specimen slightly (test code = 627) hemolyzed Push Connector Assembler ID - JUSTEN [id number] 08:57:01 Test Item Value Reference Range Interpretation Comments PHOSPHORUS (BEAKER) 2.4 mg/dL 2.3-4.7 Specimen slightly (test code = 604) hemolyzed Push Connector Assembler ID - JUSTEN LPOCT-GLUCOSE [id number] 07:53:47 Test Item Value Reference Range Interpretation Comments POC-GLUCOSE METER 274 mg/dL 70-110 H : TESTED A T [facility] 6720 (BEAKER) (test code [facility], = 1538) 36394: Push Connector Assembler/Techni yessi ID = [id number] for Arcelia porras (contract), Tiffany david CBC W/PLT COUNT & AUTO [id number] 06:02:22 Test Item Value Reference Range Interpretation [...] 0.00-1.00 PERCENT (BEAKER) (test code = 2801) [id number] 05:53:00 Test Item Value Reference Range Interpretation Comments MAGNESIUM (BEAKER) 2.4 mg/dL 1.6-2.6 Specimen slightly (test code = 627) hemolyzed Push Connector Assembler ID - PIAYA [id number] 05:53:00 Test Item Value Reference Range Interpretation Comments PHOSPHORUS (BEAKER) 2.1 mg/dL 2.3-4.7 L Specimen slightly (test code = 604) hemolyzed Push Connector Assembler ID - JUSTEN LBASIC METABOLIC [id number] 05:53:00 Test Item Value Reference Range Interpretation [...] not appl icable for dialysis patien ts Push Connector Assembler ID - JUSTEN LBLOOD GAS, [id number] 05:26:22 Test Item Value Reference Range Interpretation [...] (test code = 1819) 21.0 BASIC METABOLIC [id number] 02:03:34 Test Item Value Reference Range Interpretation [...] not appl icable for dialysis patien ts Push Connector Assembler ID - JUSTEN [id number] 01:45:29 Test Item Value Reference Range Interpretation Comments MAGNESIUM (BEAKER) (test code = 1.7 mg/dL 1.6-2.6 627) Push Connector Assembler MICHELLE CAMPUZANO [id number] 01:45:29 Test Item Value Reference Range Interpretation Comments PHOSPHORUS (BEAKER) (test code = 2.4 mg/dL 2.3-4.7 604) Push Connector Assembler ID - JUSTEN SMITHOD GAS, [id number] 01:25:28 Test Item Value Reference Range Interpretation [...] (BEAKER) (test code = 1819) 21.0 POCT-GLUCOSE [id number] 00:15:44 Test Item Value Reference Range Interpretation Comments POC-GLUCOSE METER 100 mg/dL 70-110 : TESTED A T [facility] 6720 (BEAKER) (test code = [facility], 1538) 62523: Push Connector Assembler/Techni yessi ID = [id number] for DA VISSADIN POCT-GLUCOSE [id number] 23:15:21 Test Item Value Reference Range Interpretation Comments POC-GLUCOSE METER 101 mg/dL 70-110 : TESTED A T [facility] 6720 (BEAKER) (test code = [facility], 1538) 82941: Push Connector Assembler/Techni yessi ID = [id number] for Al i, Poppy POCT-GLUCOSE [id number] 22:24:36 Test Item Value Reference Range Interpretation Comments POC-GLUCOSE METER 73 mg/dL 70-110 : TESTED A T [facility] 6720 (BEAKER) (test code = [facility], 1538) 32762: Push Connector Assembler/Techni yessi ID = [id number] for JO S, FELICE BASIC METABOLIC [id number] 22:00:23 Test Item Value Reference Range Interpretation [...] not appl icable for dialysis patien ts Push Connector Assembler ID - [id number] 22:00:23 Test Item Value Reference Range Interpretation Comments MAGNESIUM (BEAKER) (test code = 1.8 mg/dL 1.6-2.6 627) Push Connector Assembler ID - [id number] 22:00:23 Test Item Value Reference Range Interpretation Comments PHOSPHORUS (BEAKER) (test code = 2.8 mg/dL 2.3-4.7 604) Push Connector Assembler ID - AZBLOOD GAS, [id number] 21:35:45 Test Item Value Reference Range Interpretation [...] (BEAKER) (test code = 1819) 21.0 POCT-GLUCOSE [id number] 21:26:21 Test Item Value Reference Range Interpretation Comments POC-GLUCOSE METER 92 mg/dL 70-110 : TESTED A T [facility] 6720 (BEAKER) (test code = [facility], 1538) 95169: Push Connector Assembler/Techni yessi ID = [id number] for Poppy Tobin POCT-GLUCOSE [id number] 16:51:00 Test Item Value Reference Range Interpretation Comments POC-GLUCOSE METER 176 mg/dL 70-110 H : TESTED A T [facility] 6720 (BEAKER) (test code = [facility], 1538) 28466: Push Connector Assembler/Techni yessi ID = [id number] for Daisy Pascal POCT-GLUCOSE [id number] 15:50:57 Test Item Value Reference Range Interpretation Comments POC-GLUCOSE METER 174 mg/dL 70-110 H : TESTED A T [facility] 6720 (BEAKER) (test code = [facility], 1538) 08293: Push Connector Assembler/Techni yessi ID = [id number] for IB RAHIM, SERKALEM BASIC METABOLIC [id number] 14:41:08 Test Item Value Reference Range Interpretation [...] not appl icable for dialysis patien ts Push Connector Assembler ID - [id number] 14:39:22 Test Item Value Reference Range Interpretation Comments MAGNESIUM (BEAKER) (test code = 2.1 mg/dL 1.6-2.6 627) Push Connector Assembler ID - [id number] 14:39:22 Test Item Value Reference Range Interpretation Comments PHOSPHORUS (BEAKER) (test code = 1.8 mg/dL 2.3-4.7 L 604) Push Connector Assembler ID - MARCOPOCT-GLUCOSE [id number] 14:36:37 Test Item Value Reference Range Interpretation Comments POC-GLUCOSE METER 171 mg/dL 70-110 H : TESTED A T [facility] 6720 (BEAKER) (test code = [facility] [employer] [facility], 153) 65929: Push Connector Assembler/Techni yessi ID = [id number] for IB RAHIM, SERKALEM POCT-GLUCOSE [id number] 13:31:59 Test Item Value Reference Range Interpretation Comments POC-GLUCOSE METER 127 mg/dL 70-110 H : TESTED A T [facility] 6720 (BEAKER) (test code = [facility] [employer] [facility], 153) 08376: Push Connector Assembler/Techni yessi ID = [id number] for IB RAHIM, SERKALEM POCT-GLUCOSE [id number] 12:55:21 Test Item Value Reference Range Interpretation Comments POC-GLUCOSE METER 165 mg/dL 70-110 H : TESTED A T [facility] 6720 (BEAKER) (test code = [facility], 1538) 50961: Push Connector Assembler/Techni yessi ID = [id number] for Daisy Pascal BLOOD GAS, [id number] 12:48:29 Test Item Value Reference Range Interpretation [...] (BEAKER) (test code = 1819) 21.0 POCT-GLUCOSE [id number] 12:33:46 Test Item Value Reference Range Interpretation Comments POC-GLUCOSE METER 174 mg/dL 70-110 H : TESTED A T [facility] 6720 (BEAKER) (test code = [facility], 1538) 20684: Push Connector Assembler/Techni yessi ID = [id number] for IB RAHIM, SERKALEM POCT-GLUCOSE [id number] 10:48:24 Test Item Value Reference Range Interpretation Comments POC-GLUCOSE METER 189 mg/dL 70-110 H : TESTED A T [facility] 6720 (BEAKER) (test code = [facility], 1538) 95304: Push Connector Assembler/Techni yessi ID = [id number] for IB RAHIM, SERKALEM HEMOGLOBIN [id number] 10:33:22 Test Item Value Reference Range Interpretation Comments HEMOGLOBIN A1C 9.9 % See_Comment H [Automated m essage] ELECTROPHORESIS (BEAKER) The system which (test code = 3811) generated this result transmitted ref erence range: <=5.6%. The reference range was not used to int erpret this result as normal/abnormal . "The A1c is measured using a NGS-certified method. HbA1c value equal to or greater than 6.5% as thediagnosis cutoff for diabetes. An HbA1c value of 5.7- 6.4% indicates increased risk for diabetes (prediabetes)."Push Connector Assembler ID - ADMPOCT- GLUCOSE [id number] 09:37:04 Test Item Value Reference Range Interpretation Comments POC-GLUCOSE METER 211 mg/dL 70-110 H : TESTED A T [facility] 6720 (BEAKER) (test code = NATALIE Gayle [place], 1538) 55642: Push Connector Assembler/Techni yessi ID = [id number] for IB DICKSON ELIZONDOM [id number] 09:19:13 Test Item Value Reference Range Interpretation Comments PHOSPHORUS (BEAKER) (test code = 1.2 mg/dL 2.3-4.7 LL 604) Push Connector Assembler ID - CHARLIE GBASIC METABOLIC [id number] 09:08:43 Test Item Value Reference Range Interpretation [...] not appl icable for dialysis patien ts Push Connector Assembler ID - CHARLIE [id number] 09:05:45 Test Item Value Reference Range Interpretation Comments MAGNESIUM (BEAKER) (test code = 2.1 mg/dL 1.6-2.6 627) Push Connector Assembler ID - CHARLIE GPOCT-GLUCOSE [id number] 08:48:23 Test Item Value Reference Range Interpretation Comments POC-GLUCOSE METER 233 mg/dL 70-110 H : TESTED A T [facility] 6720 (BEAKER) (test code = [place], 1538) 13764: Push Connector Assembler/Techni yessi ID = [id number] for Daisy Pascal BLOOD GAS, [id number] 08:38:28 Test Item Value Reference Range Interpretation [...] (BEAKER) (test code = 1819) 21.0 Screen, [id number] 08:10:39 Test Item Value Reference Range Interpretation Comments Preg Test, Ur (test code = 2-1) Negative Negative Lab Interpretation (test code = Normal 66774-9) [facility] [id number] 08:10:39 Test Item Value Reference Range Interpretation Comments Preg Test, Ur (test code = 2112-1) Negative Negative Lab Interpretation (test code = Normal 89171-9) [facility], [id number] 08:10:39 Test Item Value Reference Range Interpretation Comments Preg Test, Ur (test code = 2112-1) Negative Negative Lab Interpretation (test code = Normal 98288-3) [facility], [id number] 08:10:39 Test Item Value Reference Range Interpretation Comments Preg Test, Ur (test code = 2112-1) Negative Negative Lab Interpretation (test code = Normal 49431-5) [facility], [id number] 08:10:39 Test Item Value Reference Range Interpretation Comments Preg Test, Ur (test code = 2112-1) Negative Negative Lab Interpretation (test code = Normal 63692-0) [facility], [id number] 08:10:39 Test Item Value Reference Range Interpretation Comments Preg Test, Ur (test code = 2112-1) Negative Negative Lab Interpretation (test code = Normal 30587-6) [facility]Preancy Screen, [id number] 08:10:39 Test Item Value Reference Range Interpretation Comments Preg Test, Ur (test code = 2112-1) Negative Negative Lab Interpretation (test code = Normal 11306-4) [facility]PREANCY SCREEN, [id number] 08:10:39 Test Item Value Reference Range Interpretation Comments TEST URINE (BEAKER) (test Negative Negative code = 583) POCT-GLUCOSE [id number] 07:44:37 Test Item Value Reference Range Interpretation Comments POC-GLUCOSE METER 222 mg/dL 70-110 H : TESTED A T [facility] 6720 (BEAKER) (test code = [facility], 153) 63405: Push Connector Assembler/Techni yessi ID = [id number] for IB RAHIM, SERKALEM POCT-GLUCOSE [id number] 06:44:09 Test Item Value Reference Range Interpretation Comments POC-GLUCOSE METER 245 mg/dL 70-110 H : TESTED A T [facility] 6720 (BEAKER) (test code = [facility], 153) 84902: Push Connector Assembler/Techni yessi ID = [id number] for FELICE RICHMOND TSH/FREE T4 IF [id number] 06:40:23 Test Item Value Reference Range Interpretation Comments THYROID STIMULATING HORMONE 0.958 uIU/mL 0.350-4.940 (BEAKER) (test code = 772) Push Connector Assembler ID - CHARLIE GBASIC METABOLIC [id number] 06:01:56 Test Item Value Reference Range Interpretation [...] not appl icable for dialysis patien ts Push Connector Assembler ID - CHARLIE GSARS-CoV2/Influenza/RSV [id number] 05:53:01 Test Item Value Reference Interpretation Comments Range SARS-COV2/RT-PCR Negative Negative The SARS-Co V-2 (test code = target nucleic 92759-3) acids are not detected in thi s [...] (test code = [place] [address]-7) detected in thi s specimen. Influenza B RT-PCR Negative Negative The Flu B target (test code = [place] 13366-4) not detected in this specimen. RSV by RT-PCR (test Negative Negative The RSV target code = 38084-7) nucleic acid s are not detected in [...] the Act. Fact Sheet for Healthcare Providers:https://w [employer]/Docu ments/Xpert%20Xpres s%20SARS%20CoV-2/Fa ct%20Sheets/302-390 2%25YAMP-EVW-3%20HE ALTHCARE%20PROVIDER S%20FACT%20SHEET.pd f Fact Sheet for Healthcare Patients:https://ww [employer]/Docum ents/Xpert%20Xpress %20SARS%20Cov-2/Fac t%20Sheets/302-3801 %51VEPZ-HPP-9%20PAT IENT%20FACT%20SHEET .pdf Lab Interpretation Abnormal (test code = 70908-3) [facility] [id number] 05:53:01 Test Item Value Reference Interpretation Comments Range SARS-COV2/RT-PCR Negative Negative The SARS-Co V-2 (test code = target nucleic 99688-9) acids are not detected in [facility] s specimen. Negat alexys results do [...] om SARS-CoV-2 in a [facility]oph[facility]ab [facility] individual s suspected of COVID-19 by the ir healthcare provider. Influenza A RT-PCR Positive Negative AA The Flu A target (test code = [place] 59[address]-7) detected in [facility] s specimen. Influenza B RT-PCR Negative Negative The Flu B target (test code = [place] 29010-5) not detected in this specimen. RSV by RT-PCR (test Negative Negative The RSV target code = 95460-6) nucleic acid s are not detected in [...] the Act. Fact Sheet for Healthcare Providers:https://w [employer]oped/Docu ments/Xpert%20Xpres s%20SARS%20CoV-2/Fa ct%20Sheets/302-390 2%67BTIX-XQF-3%20HE ALTHCARE%20PROVIDER S%20FACT%20SHEET.pd f Fact Sheet for Healthcare Patients:https://mindi [employer]/Docum ents/Xpert%20Xpress %20SARS%20Cov-2/Fac t%20Sheets/302-3801 %88LLAK-UHT-7%20PAT IENT%20FACT%20SHEET .pdf Lab Interpretation Abnormal (test code = 65497-9) [facility] [id number] 05:53:01 Test Item Value Reference Interpretation Comments Range SARS-COV2/RT-PCR Negative Negative The SARS-Co V-2 (test code = target nucleic 26626-8) acids are not detected in [facility] s specimen. Negat alexys results do [...] (test code = [place] 52079-2) detected in [facility] s specimen. Influenza B RT-PCR Negative Negative The Flu B target (test code = [place] 84429-8) not detected in this specimen. RSV by RT-PCR (test Negative Negative The RSV target code = 93856-6) nucleic acid s are not detected in [...] SARS-CoV-2/Flu/RSV by their healthcare provider. Results from [facility] Xpert Xpress SARS-CoV-2/Flu/RSV test should be [...] the Act. Fact Sheet for Healthcare Providers:https://w [employer]/Docu ments/Xpert%20Xpres s%20SARS%20CoV-2/Fa ct%20Sheets/302-390 2%29OMPA-JOY-9%20HE ALTHCARE%20PROVIDER S%20FACT%20SHEET.pd f Fact Sheet for Healthcare Patients:https://[employer]/Docum ents/Xpert%20Xpress %20SARS%20Cov-2/Fac t%20Sheets/302-3801 %14GSZM-YGG-3%20PAT IENT%20FACT%20SHEET .pdf Lab Interpretation Abnormal (test code = 70901-9) [facility] [id number] 05:53:01 Test Item Value Reference Interpretation Comments Range SARS-COV2/RT-PCR Negative Negative The SARS-Co V-2 (test code = target nucleic 69589-4) acids are not detected in thi s [...] (test code = [place] [address]35-2) detected in thi s specimen. Influenza B RT-PCR Negative Negative The Flu B target (test code = [place] re 05873-5) not detected in this specimen. RSV by RT-PCR (test Negative Negative The RSV target code = 37602-4) nucleic acid s are not detected in [...] SARS-CoV-2/Flu/RSV by their healthcare provider. Results from [facility] Xpert Xpress SARS-CoV-2/Flu/RSV test should be [...] the Act. Fact Sheet for Healthcare Providers:https://w [employer]/Docu ments/Xpert%20Xpres s%20SARS%20CoV-2/Fa ct%20Sheets/302-390 2%73BYDF-SJJ-4%20HE ALTHCARE%20PROVIDER S%20FACT%20SHEET.pd f Fact Sheet for Healthcare Patients:https://mindi [employer]/Docum ents/Xpert%20Xpress %20SARS%20Cov-2/Fac t%20Sheets/302-3801 %70PLNU-VRC-3%20PAT IENT%20FACT%20SHEET .pdf Lab Interpretation Abnormal (test code = 82720-6) [facility] [id number] 05:53:01 Test Item Value Reference Interpretation Comments Range SARS-COV2/RT-PCR Negative Negative The SARS-Co V-2 (test code = target nucleic 96887-8) acids are not detected in [facility] s specimen. Negat alexys results do [...] om SARS-CoV-2 in a nasopharyngeal swab specimen [facility] from individual s suspected of COVID-19 by the ir healthcare provider. Influenza A RT-PCR Positive Negative AA The Flu A target (test code = [place] 49444-9) detected in [facility] s specimen. Influenza B RT-PCR Negative Negative The Flu B target (test code = [place] 42746-5) not detected in this specimen. RSV by RT-PCR (test Negative Negative The RSV target code = 99350-0) nucleic acid s are not detected in [...] the Act. Fact Sheet for Healthcare Providers:https://w [employer]/Docu ments/Xpert%20Xpres s%20SARS%20CoV-2/Fa ct%20Sheets/302-390 2%13KWSF-PNY-1%20HE ALTHCARE%20PROVIDER S%20FACT%20SHEET.pd f Fact Sheet for Healthcare Patients:https://mindi [employer]/Docum ents/Xpert%20Xpress %20SARS%20Cov-2/Fac t%20Sheets/302-3801 %25WQBD-HST-9%20PAT IENT%20FACT%20SHEET .pdf Lab Interpretation Abnormal (test code = 56822-7) [facility] [id number] 05:53:01 Test Item Value Reference Interpretation Comments Range SARS-COV2/RT-PCR Negative Negative The SARS-Co V-2 (test code = target nucleic 00086-5) acids are not detected in [facility] s specimen. Negat alexys results do [...] (test code = [place] [address]295-8) detected in [facility] s specimen. Influenza B RT-PCR Negative Negative The Flu B target (test code = [place] re 10045-5) not detected in this specimen. RSV by RT-PCR (test Negative Negative The RSV target code = 49683-5) nucleic acid s are not detected in [...] SARS-CoV-2/Flu/RSV by their healthcare provider. Results from [facility] Xpert Xpress SARS-CoV-2/Flu/RSV test should be [...] the Act. Fact Sheet for Healthcare Providers:https://w [employer]/Docu ments/Xpert%20Xpres s%20SARS%20CoV-2/Fa ct%20Sheets/302-390 2%26YVIP-YIV-2%20HE ALTHCARE%20PROVIDER S%20FACT%20SHEET.pd f Fact Sheet for Healthcare Patients:https://[employer]/Docum ents/Xpert%20Xpress %20SARS%20Cov-2/Fac t%20Sheets/302-3801 %88HWYR-YNO-5%20PAT IENT%20FACT%20SHEET .pdf Lab Interpretation Abnormal (test code = 00016-4) [facility] [id number] 05:53:01 Test Item Value Reference Interpretation Comments Range SARS-COV2/RT-PCR Negative Negative The SARS-Co V-2 (test code = target nucleic 69678-9) acids are not detected in thi s [...] is improperly collected, transported or handled. This SARS CoV-2 test is a rapid, real-levon e RT-PCR test intended for th e qualitative detection of nucleic acid fr om SARS-CoV-2 in a nasopharyngeal swab specimen [facility] from individual s suspected of COVID-19 by the ir healthcare provider. Influenza A RT-PCR Positive Negative AA The Flu A target (test code = [place] [address]-8) detected in thi s specimen. Influenza B RT-PCR Negative Negative The Flu B target (test code = nucleic acids a re 27819-2) not detected in this specimen. RSV by RT-PCR (test Negative Negative The RSV target code = 72529-1) nucleic acid s are not detected in [...] SARS-CoV-2/Flu/RSV by their healthcare provider. Results from [facility] Xpert Xpress SARS-CoV-2/Flu/RSV test should be [...] the Act. Fact Sheet for Healthcare Providers:https://w ww.[employer]/Docu ments/Xpert%20Xpres s%20SARS%20CoV-2/Fa ct%20Sheets/302-390 2%03UIRH-XRH-3%20HE ALTHCARE%20PROVIDER S%20FACT%20SHEET.pd f Fact Sheet for Healthcare Patients:https://ww [employer]/Docum ents/Xpert%20Xpress %20SARS%20Cov-2/Fac t%20Sheets/302-3801 %28JXNI-VMW-3%20PAT IENT%20FACT%20SHEET .pdf Lab Interpretation Abnormal (test code = 95576-3) [facility] [id number] 05:53:01 Test Item Value Reference Range Interpretation Comments SARS-COV2/RT-PCR Negative Negative The SARS-Co V-2 target (test code = nucleic acids a re not 0490823) detected in thi s specimen. Negat alexys [...] individuals adrian pected of COVID-19 by the [facility] ider. INFLUENZA A RT-PCR Positive Negative AA The Flu A target nucleic (test code = acids are detec james in 7628037) this specimen. INFLUENZA B RT-PCR Negative Negative The Flu B target nucleic (test code = acids are not d etected in 19100919) this specimen. RSV RT-PCR (test Negative Negative The RSV tar get nucleic code = 5299183) acids are no t detected in this [...] Xpress SARS-CoV-2/Flu/RSV by their healthcareprovider. Results from [facility] Xpert Xpress SARS-CoV-2/Flu/RSV test should be [...] of the Act.Fact Sheet for Healthcare Providers:https ://www.[employer]/Documents/Xpert%20Xpress%20SARS%20CoV-2/Fact%20Sheets/302-390 2%07NCPU-DIB-7%20HEALTHCARE%20PROVIDERS%20FACT%20SHEET.pdfFact Sheet for Healthcare Patients:https://www.[employer]/Docum ents/Xpert%20Xpress%20SARS%20Cov-2/Fact%20Sheets/3023801%60ODZL-VDW-4%20PATIENT %20FACT%20SHEET.pdfPOCT-GLUCOSE [id number] 05:47:16 Test Item Value Reference Range Interpretation Comments POC-GLUCOSE METER 199 mg/dL 70-110 H : TESTED A T [facility] 6720 (BEAKER) (test code = NATALIE [place], 1538) [address]: Push Connector Assembler/Techni yessi ID = [id number] for Elissa Lewis [id number] 05:44:41 Test Item Value Reference Range Interpretation Comments MAGNESIUM (BEAKER) (test code = 1.5 mg/dL 1.6-2.6 L 627) Push Connector Assembler ID - CHARLIE [id number] 05:44:41 Test Item Value Reference Range Interpretation Comments PHOSPHORUS (BEAKER) (test code = 1.7 mg/dL 2.3-4.7 L 604) Push Connector Assembler ID - CHARLIE GLACTIC ACID, [id number] 05:40:57 Test Item Value Reference Range Interpretation Comments LACTATE BLOOD VENOUS (2) (BEAKER) 0.86 mmol/L 0.50-2.20 (test code = 2872) Push Connector Assembler ID - CHARLIE GCBC W/PLT COUNT & AUTO [id number] 05:35:44 Test Item Value Reference Range Interpretation [...] (test code = 2801) HIGH SENSITIVITY TROPONIN [id number] 05:26:53 Test Item Value Reference Range Interpretation Comments HIGH SENSITIVITY < pg/ml See_Comment [Automated message] TROPONIN I (test code = The system which 6729780) generated this result transmitted ref erence range: <=17. Th e reference range was not used to interpr et this result as normal/abnormal . Push Connector Assembler ID - CHARLIE GThe COMMISSIONING AGENT STAT High Sensitivity Troponin-I results should be used in conjunction with other diagnostic information such as ECG, clinical observations and information, and patient symptoms to aid in the diagnosis of [place].BLOOD GAS, [id number] 05:11:35 Test Item Value Reference Range Interpretation [...] (BEAKER) (test code = 1819) 21.0 POCT-GLUCOSE [id number] 04:35:37 Test Item Value Reference Range Interpretation Comments POC-GLUCOSE METER 195 mg/dL 70-110 H : TESTED A T [facility] 6720 (BEAKER) (test code = [facility], 1538) [address]: Push Connector Assembler/Techni yessi ID = [id number] for DA FELICE MEDINA POCT-GLUCOSE [id number] 03:28:15 Test Item Value Reference Range Interpretation Comments POC-GLUCOSE METER 201 mg/dL 70-110 H : TESTED A T [facility] 6720 (BEAKER) (test code = [facility], 1538) 89664: Push Connector Assembler/Techni yessi ID = [id number] for Ez enwugo, [place] POCT-GLUCOSE [id number] 01:43:58 Test Item Value Reference Range Interpretation Comments POC-GLUCOSE METER 184 mg/dL 70-110 H : TESTED A T [facility] 6720 (BEAKER) (test code = [facility], 1538) [address]48[address]: Push Connector Assembler/Techni yessi ID = [id number] for Cindy Campos
[2023-06-17] MEDS ORDERED: NA CHLORIDE 0.9% 2,000 ML ONE (07:54)
[2023-06-17 08:08] LABS: SARS-CoV-2 Antigen Rapid Res Negative (Negative)
[2023-06-17 08:16] LABS: BUN Blood Urea Nitrogen 21 mg/dL (7-18); Glomerular Filtration Rate 75 ml/min (=/>90); Potassium 4.2 mEq/L (3.5-5.1); Sodium Level 134 mEq/L (136-145)
[2023-06-17 08:17] LABS: Bicarbonate < 8 mEq/L (21-32); Glucose Level 414 mg/dL (74-106)
[2023-06-17 08:24] LABS: Specific Gravity 1.025 (1.005-1.030)
[2023-06-17 08:25] LABS: Specific Gravity 1.025 (1.005-1.030); Urine Bacteria <20 /HPF (<20); Urine Bilirubin NEGATIVE (Negative); Urine Blood Trace (Negative); Urine Clarity Clear (Clear); Urine Color Colorless (Yellow); Urine Glucose 4+ (Over) (Negative); Urine Mucus Slight /HPF (None Seen); Urine Protein 1+ (Negative); Urine RBC <5 /HPF (None Seen); Urine Urobilinogen Normal (Normal)
--- NOTE | 2023-06-17 08:38 | EDPHYS ---
Physician Documentation [facility] Name: Cristina Wheeler Age: 33 yrs Sex: Female : 1990 Arrival Date: 06/17/2023 Time: 07:25 Bed 13 Private MD: ED Physician Jesus Antunez HPI: 06/17 07:48 This 33 yrs old Female presents to ER via EMS with complaints of High Blood Sugar, rn Nausea. 07:48 The patient or guardian reports hyperglycemia, that was potentially precipitated by rn forgetting medications, Treatment prior to arrival includes: taking additional insulin. Onset: The symptoms/episode began/occurred at an unknown time. Associated signs and symptoms: Pertinent positives: nausea, polydipsia, polyuria, Pertinent negatives: seizure activity, vomiting. Current symptoms: In the emergency department the patient's symptoms are unchanged from the initial presentation. The patient has experienced similar episodes in the past. Patient reports high blood sugar, in the 400s, is in the middle of moving and states not checking her blood sugar and has not taken her insulin appropriately. EMS called for nausea and feeling bad, patient feels like she is in DKA again. Took 14 units of insulin 30 minutes prior to arrival.. Historical: - Allergies: 07:36 flu medication; db 07:36 PENICILLINS; db 07:36 Spinach; db 07:36 Sulfa (Sulfonamide Antibiotics); db - Home Meds: 07:36 gabapentin Oral [Active]; Humolog [Active]; db - PMHx: 07:36 Arthritis; Diabetes - IDDM; neuropathy; db - PSHx: 07:36 r knee SX; db - Immunization history:: Adult Immunizations unknown, Client reports having NOT received the Covid vaccine. - Social history:: Smoking status: Reported history of juuling and/or vaping. - Family history:: not pertinent. - Hospitalizations: : No recent hospitalization is reported. ROS: 07:48 Constitutional: Negative for fever, chills, and weight loss, ENT: Negative for injury, rn pain, and discharge, Neck: Negative for injury, pain, and swelling, Cardiovascular: Negative for chest pain, palpitations, and edema, Respiratory: Negative for shortness of breath, cough, wheezing, and pleuritic chest pain, Abdomen/GI: Positive for nausea MS/Extremity: Negative for injury and deformity, Skin: Negative for injury, rash, and discoloration, Neuro: Positive for generalized weakness and malaise Exam: 07:48 Constitutional: Thin female, no acute distress Head/Face: Normocephalic, atraumatic. criminal defense attorney: Tachycardic, regular. No pulse deficits. Respiratory: No increased work of breathing, no retractions or nasal flaring. Abdomen/GI: Soft, no focal tenderness. No distention. No peritoneal signs Skin: Warm, dry MS/ Extremity: Pulses equal, no cyanosis. Neuro: Awake and alert, GCS 15 Vital Signs: 07:25 BP 101 / 71; Pulse 116; Resp 18; Temp 98.7(O); Pulse Ox 100% on R/A; Weight 41.5 kg db (R); Height 4 ft. 10 in. ; Pain 5/10; 08:00 BP 95 / 75; Pulse 128; Resp 20; Pulse Ox 100% on R/A; db 09:00 BP 109 / 83; Pulse 115; Resp 18; Pulse Ox 99% on R/A; db 10:00 BP 124 / 89; Pulse 122; Resp 18; Pulse Ox 100% on R/A; db 10:30 BP 133 / 80; Pulse 116; Resp 18; Pulse Ox 99% on R/A; db 12:00 BP 115 / 73; Pulse 104; Resp 16; Pulse Ox 100% on R/A; db 13:00 BP 123 / 76; Pulse 101; Resp 16; Pulse Ox 100% on R/A; db 07:25 Body Mass Index 19.12 (41.50 kg, 147.32 cm) db 07:25 Pain Scale: Adult db [place] Coma Score: 10:06 Eye Response: spontaneous(4). Motor Response: obeys commands(6). Verbal Response: db oriented(5). Total: 15. Procedures: 08:29 Peripheral line: by aseptic technique a peripheral line was placed in the right Upper rn arm, Ultrasound-guided peripheral IV placed by dc, single stick, 20-gauge, good blood return and easy to flush. Patient tolerated well. 08:58 Central Line: the site was prepped with Betadine, in sterile fashion, a triple lumen rn catheter was inserted, in the right femoral vein, in 1 attempts. placement was verified, by blood return, the site was dressed with Tegaderm, using sterile technique, the patient tolerated the procedure, well. MDM: 07:29 Patient medically screened. rn 08:29 ED course: Nursing unable to get IV after multiple sticks, ultrasound-guided IV placed rn by me. 08:36 Differential diagnosis: DKA, hyperglycemia, Acidosis, acute kidney injury, viral rn syndrome. Data reviewed: vital signs, nurses notes, lab test result(s), and as a result, I will admit patient. Care significantly affected by the following chronic conditions: Diabetes. Counseling: I had a detailed discussion with the patient and/or guardian regarding the historical points, exam findings, and any diagnostic results supporting the discharge/admit diagnosis, lab results, the need for further work-up and treatment in the hospital. Response to treatment: the patient's symptoms have mildly improved after treatment, and as a result, I will admit patient. 08:36 ED course: I personally spent 35 minutes engaged in work directly related to the rn individual patient's care. This does not include any time spent performing procedures. The patient has been deemed critically ill because of severe metabolic acidosis due to to diabetic ketoacidosis, multiple IV sticks, ultrasound-guided IV placement, and need for central line placement with resuscitation. 06/17 07:30 Order name: CBC with Diff; Complete Time: 11: rn 06/17 07:30 Order name: Basic Metabolic Panel; Complete Time: 08:32 rn 06/17 07:30 Order name: Test, Urine; Complete Time: 08:32 rn 06/17 07:30 Order name: Urinalysis w/ reflexes; Complete Time: 08:32 rn 06/17 07:30 Order name: SARS RAPID; Complete Time: 08: rn 06/17 07:30 Order name: Flu; Complete Time: 08: rn 06/17 08:00 Order name: Glucose, Ancillary Testing; Complete Time: : EDDC 06/17 09:55 Order name: Glucose, Ancillary Testing; Complete Time: : EDDC 06/17 10:48 Order name: ABG Arterial Blood Gas; Complete Time: : EDDC 06/17 10:49 Order name: Basic Metabolic Panel; Complete Time: : EDDC 06/17 10:59 Order name: Glucose, Ancillary Testing; Complete Time: : EDDC 06/17 11:17 Order name: Hemoglobin A1c; Complete Time: 13:37 EDMS 06/17 11:59 Order name: Glucose, Ancillary Testing; Complete Time: 13:37 EDMS 06/17 13:14 Order name: Glucose, Ancillary Testing; Complete Time: 13:37 EDMS 06/17 13:57 Order name: Glucose, Ancillary Testing EDMS 06/17 07:30 Order name: IV Start; Complete Time: 10:16 rn 06/17 07:30 Order name: Glucose Level; Complete Time: 08:02 rn 06/17 08:08 Order name: Labs - recollect needed: recollect cbc/ hemolyzed per sayra; Complete eb Time: 09:12 06/17 08:46 Order name: Labs - recollect needed: recollect the recollect per Sayra; Complete Time: eb 09:12 Administered Medications: 09:00 Drug: NS 0.9% IV 1000 ml IV at 1000 ml once Route: IV; Rate: 1000 ml; Site: PICC; db 09:00 Drug: NS 0.9% IV 1000 ml IV at 1000 ml once Route: IV; Rate: 1000 ml; Site: PICC; db 09:40 Drug: Insulin Drip - (Insulin Regular Human IVP 100 units, NS 0.9% IV 100 ml) IV at db calculated rate continuous; Standard concentration 1unit/ml; Dose for DKA is 0.1 units/kg/hr {Co-Signature: eh3 (Marilyn Lara RN).} {Note: START AT 1 UNITS/HR per shading painter hospitalist GLUCOSE.} Route: IV; Rate: calculated rate; Site: PIC; 10:54 Follow up: Rate change 0.5 units/hr db 12:30 Follow up: IV Status: Infusion continued upon admission db 10:05 Drug: D5-NS IV 1000 ml IV at bolus once; 1000 mL bolus; followed by 150 mL/hr db continuous {Note: started per hospitalist shading painter.} Route: IV; Rate: bolus; Site: PICC; 13:48 Follow up: Response: No adverse reaction; IV Status: Completed infusion; medication db discontinued. see [place] [employer] Point of Care Testing: Blood Glucose: 07:47 Blood Glucose: 422 mg/dL; db 10:49 Blood Glucose: 199 mg/dL; db 11:48 Blood Glucose: 206 mg/dL; db 12:55 Blood Glucose: 208 mg/dL; db 13:45 Blood Glucose: 222 mg/dL; db Ranges: Critical Glucose Levels:Adult <50 mg/dl or >400 mg/dl <40 mg/dl or >180 mg/dl Disposition Summary: 06/17/23 08:38 Hospitalization Ordered Notes: Hospitalization Status: Inpatient Admission rn Condition: Stable rn Problem: new rn Symptoms: have improved rn Bed/Room Type: Standard rn Provider: Shraddha Covington(06/17/23 09:14) rn Location: [facility] ER HOLD(06/17/23 10:52) Room Assignment: ERHOLD-(06/17/23 10:52) eb Diagnosis - Type 1 diabetes mellitus with ketoacidosis without coma rn - Weakness rn - Dehydration rn Forms: - Medication Reconciliation Form rn - SBAR form rn - Leadership Thank You Letter teacher learning disabled time excluding procedures: 08:36 Critical care time: Bedside Care: 35 minutes. Total time: 35 minutes rn Signatures: Dispatcher [employer] EDJesus Rebolledo MD MD rn Botello, Elizabeth eb Benton, Danielle, RN RN Marilyn Espino RN 3 Corrections: (The following items were deleted from the chart) 09:14 08:38 Abimael Navarro rn rn 10:52 08:38 Intensive Care Unit rn eb 10:52 08:38 rn eb 14:54 07:30 BETA HYDROXYBUTYRATE+C.LAB.BRZ ordered. rn db
--- NOTE | 2023-06-17 08:38 | ER ---
Nurse's Notes [facility] Name: Cristina Wheeler Age: 33 yrs Sex: Female : 1990 Arrival Date: 06/17/2023 Time: 07:25 Bed 13 Private MD: Diagnosis: Type 1 diabetes mellitus with ketoacidosis without coma;Weakness;Dehydration Presentation: 06/17 07:25 Chief complaint: EMS states: PATIENT CALLED EMS THIS AM FOR WEAKNESS, CHILLS, NAUSEA, db VOMITING. DID NOT TAKE INSULIN YESTERDAY. BLOOD GLUCOSE 403 FOR EMS. PT TOOK 14 UNITS OF HER INSULIN PRIOR TO EMS ARRIVAL. Coronavirus screen: Vaccine status: Patient reports being unvaccinated. Client denies travel out of the [place] in the last 14 days. At this time, the client does not indicate any symptoms associated with coronavirus-19. Ebola Screen: Patient negative for fever greater than or equal to 101.5 degrees Fahrenheit, and additional compatible Ebola Virus Disease symptoms Patient denies exposure to infectious person. Patient denies travel to an Ebola-affected area in the 21 days before illness onset. No symptoms or risks identified at this time. Initial Sepsis Screen: Does the patient meet any 2 criteria? HR > 90 bpm. No. Patient's initial sepsis screen is negative. Does the patient have a suspected source of infection? No. Patient's initial sepsis screen is negative. Risk Assessment: Do you want to hurt yourself or someone else? Patient reports no desire to harm self or others. Onset of symptoms was June 17, 2023. Care prior to arrival: Glucose check: 403. 07:25 Method Of Arrival: EMS: [facility] db 07:25 Acuity: KM 2 db Triage Assessment: 07:36 General: Appears in no apparent distress. uncomfortable, Behavior is calm, cooperative. db Pain: Complains of pain in chest. Neuro: Level of Consciousness is awake, alert, obeys commands, Oriented to person, place, time, situation, Speech is normal. Cardiovascular: Reports chest pain. Respiratory: Airway is patent Respiratory effort is even, unlabored, Respiratory pattern is regular, symmetrical. GI: Abdomen is flat, non-distended, Abd is soft and non tender X 4 quads. Reports nausea. : No deficits noted. No signs and/or symptoms were reported regarding the genitourinary system. Historical: - Allergies: 07:36 flu medication; db 07:36 PENICILLINS; db 07:36 Spinach; db 07:36 Sulfa (Sulfonamide Antibiotics); db - Home Meds: 07:36 gabapentin Oral [Active]; Humolog [Active]; db - PMHx: 07:36 Arthritis; Diabetes - IDDM; neuropathy; db - PSHx: 07:36 r knee SX; db - Immunization history:: Adult Immunizations unknown, Client reports having NOT received the Covid vaccine. - Social history:: Smoking status: Reported history of juuling and/or vaping. - Family history:: not pertinent. - Hospitalizations: : No recent hospitalization is reported. Screenin:[address] [facility] ED Fall Risk Assessment (Adult) History of falling in the last 3 months, db including since admission No falls in past 3 months (0 pts) Confusion or Disorientation No (0 pts) Intoxicated or Sedated No (0 pts) Impaired Gait No (0 pts) Mobility Assist Device Used No (0 pt) Altered Elimination No (0 pt) Score/Fall Risk Level 0 - 2 = Low Risk Oriented to surroundings, Maintained a safe environment. Abuse screen: Denies threats or abuse. Denies injuries from another. Nutritional screening: No deficits noted. Tuberculosis screening: No symptoms or risk factors identified. Assessment: 07:38 Reassessment: SEE TRIAGE FOR INITIAL ASSESSMENT. GI: Abdomen is flat, non-distended, db Bowel sounds Abd is soft and non tender Abd is soft Reports nausea. 08:31 Reassessment: DR. ANTUNEZ AT BEDSIDE FOR ULTRASOUND GUIDED IV ACCESS. 2 NURSE 1 TECH db ATTEMPTED IV ACCESS WITH NO SUCCESS. 09:00 Reassessment: CENTRAL LINE DRESSING APPLIED AND INTACT. db 09:05 Reassessment: Patient appears in no apparent distress at this time. Patient and/or db family updated on plan of care and expected duration. Pain level reassessed. Patient is alert, oriented x 3, equal unlabored respirations, skin warm/dry/pink. General: Appears in no apparent distress. comfortable, Behavior is calm, cooperative. Neuro: Level of Consciousness is awake, alert, obeys commands, Oriented to person, place, time, situation. Respiratory: Airway is patent. 09:24 Reassessment: PHARMACY IS WORKING ON INSULIN DRIP MEDICATION. db 10:06 Reassessment: Patient appears in no apparent distress at this time. Patient and/or db family updated on plan of care and expected duration. Pain level reassessed. Patient is alert, oriented x 3, equal unlabored respirations, skin warm/dry/pink. hospitalist AIRPORT MANAGER at patient bedside. 10:06 Neuro: Level of Consciousness is awake, alert, obeys commands, Oriented to person, db place, time, situation, Appropriate for age. 10:55 Reassessment: PT IS SITTING UP TALKING ON PHONE. db 12:30 Reassessment: PATIENT STATES WANTS TO LEAVE AMA. STATES UNDERSTANDS THE RISKS OF db LEAVING AND WANTS TO LEAVE. PT EDUCATED OF IMPORTANCE OF STAYING AND EDUCATED OR RISKS. NOTIFIED DR. COVINGTON THROUGH MESSAGE. PT STATES WILL STAY TILL RIDE GETS HERE. 14:35 Reassessment:. db Vital Signs: 07:25 BP 101 / 71; Pulse 116; Resp 18; Temp 98.7(O); Pulse Ox 100% on R/A; Weight 41.5 kg db (R); Height 4 ft. 10 in. ; Pain 5/10; 08:00 BP 95 / 75; Pulse 128; Resp 20; Pulse Ox 100% on R/A; db 09:00 BP 109 / 83; Pulse 115; Resp 18; Pulse Ox 99% on R/A; db 10:00 BP 124 / 89; Pulse 122; Resp 18; Pulse Ox 100% on R/A; db 10:30 BP 133 / 80; Pulse 116; Resp 18; Pulse Ox 99% on R/A; db 12:00 BP 115 / 73; Pulse 104; Resp 16; Pulse Ox 100% on R/A; db 13:00 BP 123 / 76; Pulse 101; Resp 16; Pulse Ox 100% on R/A; db 07:25 Body Mass Index 19.12 (41.50 kg, 147.32 cm) db 07:25 Pain Scale: Adult db Palma Coma Score: 10:06 Eye Response: spontaneous(4). Motor Response: obeys commands(6). Verbal Response: db oriented(5). Total: 15. ED Course: 07:29 Patient arrived in ED. rn 07:29 Jesus Antunez MD is Attending Physician. rn 07:34 Amanda Sanchez RN is Primary Nurse. db 07:36 Triage completed. db 07:36 Arm band placed on right wrist. Patient placed in an exam room. db 07:39 Patient has correct armband on for positive identification. Bed in low position. Call db light in reach. Side rails up X2. Client placed on continuous cardiac and pulse oximetry monitoring. NIBP monitoring applied. 07:47 Missed attempt(s): 24 gauge in right forearm. ATTEMPT BY LEANNA. Bleeding controlled, db band aid applied, catheter tip intact. 08:01 Missed attempt(s): 22 gauge in left hand. Bleeding controlled, band aid applied, db catheter tip intact. 08:37 Abimael Navarro is Hospitalizing Provider. rn 09:00 Accessed PICC line. Clean \T\ dry. Dressing intact. Good blood return. Flushes easily. db CENTRAL LINE PLACED BY DR. ANTUNEZ. 09:02 Lab(s) recollected, by me, sent to lab. db 09:14 Shraddha Covington MD is Hospitalizing Provider. rn 10:20 Repeat lab(s) drawn. by me, sent to lab. db 10:24 Noise minimized. Lights dimmed. Warm blanket given. db 12:30 Provided Education on: ADMISSION. db 14:30 No provider procedures requiring assistance completed. IV discontinued, intact, db bleeding controlled, No redness/swelling at site. Administered Medications: 09:00 Drug: NS 0.9% IV 1000 ml IV at 1000 ml once Route: IV; Rate: 1000 ml; Site: PICC; db 09:00 Drug: NS 0.9% IV 1000 ml IV at 1000 ml once Route: IV; Rate: 1000 ml; Site: PICC; db 09:40 Drug: Insulin Drip - (Insulin Regular Human IVP 100 units, NS 0.9% IV 100 ml) IV at db calculated rate continuous; Standard concentration 1unit/ml; Dose for DKA is 0.1 units/kg/hr {Co-Signature: eh3 (Marilyn Lara RN).} {Note: START AT 1 UNITS/HR per title i director hospitalist GLUCOSE.} Route: IV; Rate: calculated rate; Site: PICC; 10:54 Follow up: Rate change 0.5 units/hr db 12:30 Follow up: IV Status: Infusion continued upon admission db 10:05 Drug: D5-NS IV 1000 ml IV at bolus once; 1000 mL bolus; followed by 150 mL/hr db continuous {Note: started per hospitalist title i director.} Route: IV; Rate: bolus; Site: PICC; 13:48 Follow up: Response: No adverse reaction; IV Status: Completed infusion; medication db discontinued. see [facility] Medication: 12:30 VIS not applicable for this client. db Point of Care Testing: Blood Glucose: 07:47 Blood Glucose: 422 mg/dL; db 10:49 Blood Glucose: 199 mg/dL; db 11:48 Blood Glucose: 206 mg/dL; db 12:55 Blood Glucose: 208 mg/dL; db 13:45 Blood Glucose: 222 mg/dL; db Ranges: Intake: Outcome: 08:38 Decision to Hospitalize by Provider. rn 13:50 Admitted to ER Hold. Please see [facility] for further documentation. db 13:50 Condition: stable 13:50 Instructed on the need for admit, 14:54 Patient left the ED. db Signatures: Jesus Antunez MD MD rn Benton, Danielle, RN RN db Hall, Erin RN eh3
[2023-06-17 09:29] LABS: Absolute Lymphocytes (CBC) 1.4 K/uL (0.7-4.9); Lymphocytes % 17.9 % (15.3-44.8); MCV 85.2 fL (80-100); MPV 8.3 fL (7.6-11.3); Platelets 348 thou/uL (152-406); RBC Red Blood Cell Count 4.45 M/uL (3.86-4.86)
[2023-06-17] MEDS ORDERED: ONDANSETRON 4 MG/2 ML VIAL IV PRN (09:31)
--- NOTE | 2023-06-17 09:36 | P.HP ---
Patient History Date of Service: 06/17/23 Allergies ibuprofen Adverse Reaction (Verified 10/29/18 09:02) Nausea/Vomiting oseltamivir [From Tamiflu] Adverse Reaction (Verified 10/29/18 09:02) Hives/Rash Penicillins Adverse Reaction (Verified 10/29/18 09:02) Itching/Hives/Rash Sulfa (Sulfonamide Antibiotics) Adverse Reaction (Verified 10/29/18 09:02) Itching/Hives/Rash Home Medications: Gabapentin 800 mg PO TID 10/29/18 Insulin Lispro [Humalog] 4 unit SQ AC 07/23/20 Insulin Degludec [Tresiba] 22 unit SQ BEDTIME #6 vial 05/01/22 Acetaminophen [Tylenol] 1,500 mg PO BID PRN 05/05/23 - Past Medical/Surgical History Diabetic: Yes -: diabetes mellitus I -: neuropathy -: arthritis -: ankle sx -: DKA Psychosocial/ Personal History: Pt lives at home with her family. - Family History Father -: Diabetes Mother -: Heart disease, Hypertension, Diabetes, Stroke Notes: Pt reports mother due to [place] in October 2021 - Social History Alcohol use: No CD- Drugs: No Caffeine use: Yes Physical Examination - Studies Laboratory Data (last 24 hrs) 06/17/23 06/17/23 09:02 07:50 WBC 7.60 Hgb 12.9 Hct 38.0 Plt Count 348 Sodium 134 L Potassium 4.2 BUN 21 H Creatinine 1.02 Glucose 414 H* Microbiology Data (last 24 hrs): 06/17/23 07:42 Nasopharnyx Influenza Type A Antigen Screen - Final 06/17/23 07:42 Nasopharnyx Influenza Type B Antigen Screen - Final Assessment and Plan - Advance Directives Does patient have a Living Will: No Does patient have a Durable POA for Healthcare: No
[2023-06-17] MEDS ORDERED: INSULIN -REGULAR HUMAN 100 UNIT in NA CHLORIDE 0.9% 100 ML IV SCH ×2 (09:45→10:00)
[2023-06-17] MEDS ORDERED: D5 0.45 NS 1,000 ML IV SCH (10:00)
[2023-06-17] MEDS ORDERED: NA CHLORIDE 0.9% 1,000 ML IV SCH (10:00)
[2023-06-17] MEDS ORDERED: D5 0.9 NS 1,000 ML IV ONE (10:11)
--- NOTE | 2023-06-17 10:15 | P.HP ---
Certification for Inpatient Patient admitted to: Observation With expected LOS: >2 Midnights Patient will require the following post-hospital care: None Practitioner: I am a practitioner with admitting privileges, knowledge of patient current condition, hospital course, and medical plan of care. Services: Services provided to patient in accordance with Admission requirements found in Title 42 Section 412.3 of the Code of Federal Regulations <Nadine Castano - Last Filed: 06/17/23 10:31> Patient History Date of Service: 06/17/23 History of Present Illness: Cristina Wheeler is a 33 year old female with Pmhx Diabetes type 1, arthritis, and neuropathy presents to the ED c/o hyperglycemia, nausea, vomiting, and not feeling well. Cristina reports her blood sugar reading this morning in the 400s. She states she injected 14 units of humalog 30 minutes prior to arrival. On arrival to the ED Serum glucose 422 and dropped to 250. Started insulin gtt with D5w 1/2 NS. - Past Medical/Surgical History Diabetic: Yes -: diabetes mellitus I -: neuropathy -: arthritis -: ankle sx -: DKA Psychosocial/ Personal History: Pt lives at home with her family. - Family History Father -: Diabetes Mother -: Heart disease, Hypertension, Diabetes, Stroke Notes: Pt reports mother due to ID in October 2021 - Social History Alcohol use: No CD- Drugs: No Caffeine use: Yes <Nadine Castano - Last Filed: 06/17/23 10:31> Date of Service: 06/17/23 <Shraddha Covington - Last Filed: 06/17/23 10:45> Allergies ibuprofen Adverse Reaction (Verified 10/29/18 09:02) Nausea/Vomiting oseltamivir [From Tamiflu] Adverse Reaction (Verified 10/29/18 09:02) Hives/Rash Penicillins Adverse Reaction (Verified 10/29/18 09:02) Itching/Hives/Rash Sulfa (Sulfonamide Antibiotics) Adverse Reaction (Verified 10/29/18 09:02) Itching/Hives/Rash Home Medications: Gabapentin 800 mg PO TID 10/29/18 Insulin Lispro [Humalog] 4 unit SQ AC 07/23/20 Insulin Degludec [Tresiba] 22 unit SQ BEDTIME #6 vial 05/01/22 Acetaminophen [Tylenol] 1,500 mg PO BID PRN 05/05/23 Physical Examination - Studies Laboratory Data (last 24 hrs) 06/17/23 06/17/23 09:02 07:50 WBC 7.60 Hgb 12.9 Hct 38.0 Plt Count 348 Sodium 134 L Potassium 4.2 BUN 21 H Creatinine 1.02 Glucose 414 H* Microbiology Data (last 24 hrs): 06/17/23 07:42 Nasopharnyx Influenza Type A Antigen Screen - Final 06/17/23 07:42 Nasopharnyx Influenza Type B Antigen Screen - Final <Nadine Castano - Last Filed: 06/17/23 10:31> - Studies Laboratory Data (last 24 hrs) 06/17/23 06/17/23 09:02 07:50 WBC 7.60 Hgb 12.9 Hct 38.0 Plt Count 348 Sodium 134 L Potassium 4.2 BUN 21 H Creatinine 1.02 Glucose 414 H* Microbiology Data (last 24 hrs): 06/17/23 07:42 Nasopharnyx Influenza Type A Antigen Screen - Final 06/17/23 07:42 Nasopharnyx Influenza Type B Antigen Screen - Final <Shraddha Covington - Last Filed: 06/17/23 10:45> Assessment and Plan - Advance Directives Does patient have a Living Will: No Does patient have a Durable POA for Healthcare: No <Nadine Castano - Last Filed: 06/17/23 10:31> Date of Service: 06/17/23 Patient was seen and examined. Agree with findings of nurse practitioners note as mentioned above. Patient is a 33-year-old female who presented to the hospital with diabetic ketoacidosis. Patient's been having some intractable nausea and vomiting. She took her insulin earlier today. She states that she just has not been feeling well and not tolerating much of her diet. She tried to take some insulin but because she was vomiting she kept feeling really bad so she came to the hospital for further evaluation. Patient recently had surgery of her right leg after a fall. She has had some issues with the right leg healing. She also states she has a boil on the right leg. We will check her cultures and will treat her aggressively with IV fluids and insulin drip. Her gap should close fairly quickly. We will go ahead and keep her on a diet at this time. We will go ahead and continue monitoring closely. Patient has been admitted for inpatient hospitalization. <Shraddha Covington - Last Filed: 06/17/23 10:45>
[2023-06-17 10:46] LABS: Arterial Blood Carboxyhemoglob 1.3 % (0-1.5); Blood Gas Oxyhemoglobin 94.9 % (94-97); Blood O2 Saturation 97.7 % (92-98.5)
[2023-06-17 10:48] LABS: Potassium 3.6 mEq/L (3.5-5.1)
[2023-06-17 13:30] VITALS: BP 123/76; TEMP 98.8
[2023-06-17 13:31] VITALS: BMI 19.1
[2023-06-17] MEDS ORDERED: D5 0.45 NS 1,000 ML IV ONE (13:50)
[2023-06-17] MEDS ORDERED: NA CHLORIDE 0.9% 1,000 ML ONE (13:50)
--- NOTE | 2023-06-17 14:22 | P.HP ---
Certification for Inpatient Patient admitted to: Inpatient With expected LOS: >2 Midnights Patient will require the following post-hospital care: None Practitioner: I am a practitioner with admitting privileges, knowledge of patient current condition, hospital course, and medical plan of care. Services: Services provided to patient in accordance with Admission requirements found in Title 42 Section 412.3 of the Code of Federal Regulations Patient History Date of Service: 06/17/23 History of Present Illness: Cristina Wheeler is a 33 year old female with Pmhx Diabetes type 1 (IDDM), arthritis, and neuropathy presents to the ED c/o hyperglycemia, nausea, vomiting, and not feeling well. Cristina reports her blood sugar reading this morning in the 400s. She states she injected 14 units of humalog 30 minutes prior to arrival. On arrival to the ED Serum glucose 422 and dropped to 250. Started insulin gtt with D5w 1/2 NS. Initial vitals BP 101 / 71; Pulse 116; Resp 18; Temp 98.7(O); Pulse Ox 100% on R/A. Significant labs serum glucose 414, CO2 <8, gap 25.2, platelets 75,000. On examination, Cristina was shivering, stated she lost weight quickly from 119 lbs-91 lbs in a few months. She stated she is under a lot of stress right now which is contributing to her hyperglycemia. She reports her last A1C of 10. 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 Cristina will be admitted to ICU for further treatment of DKA. Allergies ibuprofen Adverse Reaction (Verified 10/29/18 09:02) Nausea/Vomiting oseltamivir [From Tamiflu] Adverse Reaction (Verified 10/29/18 09:02) Hives/Rash Penicillins Adverse Reaction (Verified 10/29/18 09:02) Itching/Hives/Rash Sulfa (Sulfonamide Antibiotics) Adverse Reaction (Verified 10/29/18 09:02) Itching/Hives/Rash Home Medications: Gabapentin 800 mg PO TID 10/29/18 Insulin Lispro [Humalog] 4 unit SQ AC 07/23/20 Insulin Degludec [Tresiba] 22 unit SQ BEDTIME #6 vial 05/01/22 Acetaminophen [Tylenol] 1,500 mg PO BID PRN 09/21/23 - Past Medical/Surgical History Diabetic: Yes -: diabetes mellitus I -: neuropathy -: arthritis -: ankle sx -: DKA Psychosocial/ Personal History: Pt lives at home with her family. - Family History Father -: Diabetes Mother -: Heart disease, Hypertension, Diabetes, Stroke Notes: Pt reports mother due to [place] in October 2021 - Social History Alcohol use: No CD- Drugs: No Caffeine use: Yes Review of Systems General: Chills, Weakness, Malaise Respiratory: Unremarkable Cardiovascular: Unremarkable Gastrointestinal: Nausea, Vomiting Genitourinary: Unremarkable Integumentary: Unremarkable Neurological: Unremarkable Physical Examination - Vital Signs Temperature: 98.8 F Blood Pressure: 123/76 Pulse: 99 Respirations: 16 Pulse Ox (%): 100 - Physical Exam General: Alert, Oriented x3, Other (uncomfortable) HEENT: Atraumatic, Normocephalic, PERRLA Neck: Supple, 2+ carotid pulse no bruit, JVD not distended Respiratory: Clear to auscultation bilaterally, Normal air movement Cardiovascular: No edema, Normal pulses, Regular rate/rhythm, Normal S1 S2 Capillary refill: <2 Seconds Gastrointestinal: Normal bowel sounds, Soft and benign Musculoskeletal: No clubbing, No swelling, No contractures Integumentary: No rashes, No breakdown, No significant lesion Neurological: Normal gait, Normal speech, Normal strength at 5/5 x4 extr - Studies Laboratory Data (last 24 hrs) 06/17/23 06/17/23 09:02 07:50 WBC 7.60 Hgb 12.9 Hct 38.0 Plt Count 348 Sodium 134 L Potassium 4.2 BUN 21 H Creatinine 1.02 Glucose 414 H* Microbiology Data (last 24 hrs): 06/17/23 07:42 Nasopharnyx Influenza Type A Antigen Screen - Final 06/17/23 07:42 Nasopharnyx Influenza Type B Antigen Screen - Final Assessment and Plan - Plan Assessment and Plan Diabebtic ketoacidosis in a patient with type one diabetes Metobolic acidosis initial glucose 422, dropped to 251 ABG: PH 7.29, PCO2 24.6, PO2 120, HCO3 10.7 Insulin gtt D5W 1/2 NS @ 150 /hr BMP Q4h POC glucose monitor Thromobocytopenia Platelets 77,000 monitor in AM labs SCD for now Unintentional weight loss Consult 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
--- NOTE | 2023-06-17 14:44 | P.DS ---
Discharge Date: 06/17/23 Disposition: AMA-LEFT AGAINST MEDICAL ADVIC Discharge Condition: FAIR Brief History of Present Illness: Patient was seen and examined. Agree with findings of nurse practitioners note as mentioned above. Patient is a 33-year-old female who presented to the hospital with diabetic ketoacidosis. Patient's been having some intractable nausea and vomiting. She took her insulin earlier today. She states that she just has not been feeling well and not tolerating much of her diet. She tried to take some insulin but because she was vomiting she kept feeling really bad so she came to the hospital for further evaluation. Patient recently had surgery of her right leg after a fall. She has had some issues with the right leg healing. She also states she has a boil on the right leg. We will check her cultures and will treat her aggressively with IV fluids and insulin drip. Her gap should close fairly quickly. We will go ahead and keep her on a diet at this time. We will go ahead and continue monitoring closely. Patient has been admitted for inpatient hospitalization. Hospital Course: Patient decided to leave AGAINST MEDICAL ADVICE. I went and talked to her regarding the fact that she was still acidotic. She was on an insulin drip and IV fluids. Her acidosis was improving quickly. However, her acidosis was not improved completely and she did not want to stay. She has not tolerated diet for rest either. She is awake alert oriented to person place and time. She is capable of making her own decisions. Her spouse was there at bedside also convincing her to stay but she wanted the central line removed and she wanted to leave AGAINST MEDICAL ADVICE because she missed her dogs and she wanted to go lay down in her own bed. Patient signed and left AGAINST MEDICAL ADVICE. Vital Signs/Physical Exam: Temp Pulse Resp BP Pulse Ox 98.8 F 99 H 16 123/76 100 06/17/23 14:41 06/17/23 14:41 06/17/23 14:41 06/17/23 14:41 06/17/23 14:41 General: Alert, In no apparent distress, Oriented x3 Laboratory Data at Discharge: WBC 7.60 thou/uL (4.3-10.9) 06/17/23 09:02 Hgb 12.9 g/dL (12.0-15.0) 06/17/23 09:02 Hct 38.0 % (36.0-45.0) 06/17/23 09:02 Plt Count 348 thou/uL (152-406) 06/17/23 09:02 Sodium 141 mEq/L (136-145) D 06/17/23 10:20 Potassium 3.6 mEq/L (3.5-5.1) D 06/17/23 10:20 BUN 18 mg/dL (7-18) 06/17/23 10:20 Creatinine 0.67 mg/dL (0.55-1.02) 06/17/23 10:20 Glucose 207 mg/dL (74-106) H 06/17/23 10:20 Home Medications: Gabapentin 800 mg PO TID 10/29/18 Insulin Lispro [Humalog] 4 unit SQ AC 07/23/20 Insulin Degludec [Tresiba] 22 unit SQ BEDTIME #6 vial 05/01/22 Acetaminophen [Tylenol] 1,500 mg PO BID PRN 05/05/23 Physician Discharge Instructions: Patient left AGAINST MEDICAL ADVICE; spouse was advised to bring her back to the emergency room if her clinical status deteriorates. Followup: Unknown,U [Primary Care Provider] - Time spent managing pt's care (in minutes): 35
[2023-06-17 15:05] VITALS: O2SAT 100
[2023-06-17] MEDS ORDERED: PIPER TAZO 3.375 GM in NA CHLORIDE 0.9% 100 ML IV SCH (17:00)
== END 2023-06-17 14:35 | disposition left against medical advice (07) | DRG 638 ==
LOC: ER 07:25 → ERHOLD 09:30
PROVIDERS: ADMIT Hospitalist; ATTEND Hospitalist
PROC: 05HY33Z Insertion of Infusion Device into Upper Vein, Percutaneous Approach (ICD-10-PCS; principal; 2023-06-17)
DX: E10.10 Type 1 diabetes mellitus with ketoacidosis without coma (principal); Z68.1 Body mass index [BMI] 19.9 or less, adult; E10.40 Type 1 diabetes mellitus with diabetic neuropathy, unspecified; D69.6 Thrombocytopenia, unspecified; M19.90 Unspecified osteoarthritis, unspecified site; E86.0 Dehydration; R63.4 Abnormal weight loss; Z79.4 Long term (current) use of insulin; Z88.0 Allergy status to penicillin; Z88.2 Allergy status to sulfonamides; Z88.8 Allergy status to other drugs, medicaments and biological substances; Z53.29 Procedure and treatment not carried out because of patient's decision for other reasons; Z11.52 Encounter for screening for COVID-19; Z91.018 Allergy to other foods; Z79.899 Other long term (current) drug therapy; Z28.310 Unvaccinated for COVID-19; Z87.891 Personal history of nicotine dependence
CPT/HCPCS: 36415; 36600; 80048; 81001; 81025; 82805; 82947; 83036; 85025; 87804; 87811; 96361; 96365; 96366; 99285; J1815; J7030; J7042; J7799

== ENCOUNTER 2024-02-19 18:06 | Emergency (ER) | payer OTHER ==
--- NOTE | 2024-02-19 18:42 | ER ---
Nurse's Notes [facility] Name: Cristina Wheeler Age: 33 yrs Sex: Female : 1990 Arrival Date: 02/19/2024 Time: 18:06 Bed 6 Private MD: Diagnosis: PICC line complication Presentation: 02/18 18:31 Chief complaint: Patient states: PICC to LAVERN difficult to flush, blood around insertion ph site, also requesting a wound check to L. Coronavirus screen: Vaccine status: Patient reports receiving the 2nd dose of the covid vaccine. Ebola Screen: No symptoms or risks identified at this time. Initial Sepsis Screen: Does the patient meet any 2 criteria? No. Patient's initial sepsis screen is negative. Does the patient have a suspected source of infection? No. Patient's initial sepsis screen is negative. Risk Assessment: Do you want to hurt yourself or someone else? Patient reports no desire to harm self or others. Onset of symptoms was February 19, 2024. 18:31 Method Of Arrival: Ambulatory 18:31 Acuity: KM 3 ph Historical: - Allergies: 18:34 flu medication; ph 18:34 PENICILLINS; ph 18:34 Spinach; ph 18:34 Sulfa (Sulfonamide Antibiotics); ph - PMHx: 18:34 Arthritis; Diabetes - IDDM; neuropathy; ph - PSHx: 18:34 r knee SX; right leg; ph - Immunization history:: Adult Immunizations unknown. - Infectious Disease History:: Staph. - Social history:: Smoking status: unknown. - Family history:: not pertinent. Screenin:15 [facility] ED Fall Risk Assessment (Adult) History of falling in the last 3 months, jb4 including since admission No falls in past 3 months (0 pts) Confusion or Disorientation No (0 pts) Intoxicated or Sedated No (0 pts) Impaired Gait Yes (1 pt) Mobility Assist Device Used Yes (1 pt) Altered Elimination No (0 pt) Score/Fall Risk Level 0 - 2 = Low Risk Oriented to surroundings, Maintained a safe environment. Abuse screen: Denies threats or abuse. Nutritional screening: No deficits noted. Tuberculosis screening: No symptoms or risk factors identified. Assessment: 19:15 Reassessment: Patient appears in no apparent distress at this time. Patient and/or jb4 family updated on plan of care and expected duration. Pain level reassessed. Patient is alert, oriented x 3, equal unlabored respirations, skin warm/dry/pink. 19:15 Reassessment: D/c pending completion of PICC care, competed by prior RN. jb4 Vital Signs: 18:31 BP 153 / 102; Pulse 101; Resp 18; Temp 98.2; Pulse Ox 100% on R/A; Weight 51.71 kg; ph Height 4 ft. 10 in. ; 19:15 BP 140 / 97; Pulse 102; Resp 16; Pulse Ox 100% on R/A; jb4 18:31 Body Mass Index 23.83 (51.71 kg, 147.32 cm) ph ED Course: 18:12 Patient arrived in ED. mr 18:14 Chung Nuno MD is Attending Physician. rt 18:34 Triage completed. ph 18:34 Arm band placed on Patient placed in an exam room. ph 18:41 Kelsey Chavez RN is Primary Nurse. kc6 19:06 Dressings: Kerlix X 1; right arm Vaseline gauze X 1; right arm. kc6 19:15 Patient has correct armband on for positive identification. Bed in low position. Call jb4 light in reach. Side rails up X 1. Provided Education on: Discharge instructions.. 19:15 No provider procedures requiring assistance completed. PICC line remains in place. jb4 Administered Medications: 19:06 Drug: Cathflo Activase IV Thrombolytics 2 mg IV Thrombolytics once; into each catheter kc6 lumen, may repeat once Route: IV Thrombolytics; 19:06 Drug: diphenhydrAMINE PO 25 mg PO once Route: PO; kc6 Medication: 19:15 VIS not applicable for this client. jb4 Outcome: 18:41 Discharge ordered by . rt 19:15 Discharged to home ambulatory, with family, [facility] 19:15 Condition: stable 19:15 Discharge instructions given to patient, Instructed on discharge instructions, follow up and referral plans. Demonstrated understanding of instructions, follow-up care, 19:17 Patient left the ED. jb4 Signatures: Ines Chavarria, Reg Reg mr Linda Lara RN RN ph Heriberto Mayo RN RN jb4 Kelsey Chavez RN RN kc6 Chung Nuno MD MD rt
--- NOTE | 2024-02-19 18:42 | EDPHYS ---
Physician Documentation [facility] Name: Cristina Wheeler Age: 33 yrs Sex: Female : 1990 Arrival Date: 02/19/2024 Time: 18:06 Bed 6 Private MD: ED Physician Chung Nuno HPI: 02/18 23:43 This 33 yrs old Female presents to ER via Ambulatory with complaints of Picc line rt problem. 23:43 Patient with a chronic wound to the right lower extremity presents to the ED with rt difficulty flushing her PICC line to the right upper extremity. Patient states that the bandage has become hardened. Scheduled to follow-up this week with Dr. Mackey. Denies other acute complaints at this time, symptoms are moderate in severity, no other aggravating or alleviating factors.. Historical: - Allergies: 18:34 flu medication; ph 18:34 PENICILLINS; ph 18:34 Spinach; ph 18:34 Sulfa (Sulfonamide Antibiotics); ph - PMHx: 18:34 Arthritis; Diabetes - IDDM; neuropathy; ph - PSHx: 18:34 r knee SX; right leg; ph - Immunization history:: Adult Immunizations unknown. - Infectious Disease History:: Staph. - Social history:: Smoking status: unknown. - Family history:: not pertinent. ROS: 23:43 Constitutional: Negative for fever, chills, and weight loss, Cardiovascular: Negative rt for chest pain, palpitations, and edema, Respiratory: Negative for shortness of breath, cough, wheezing, and pleuritic chest pain, Abdomen/GI: Negative for abdominal pain, nausea, vomiting, diarrhea, and constipation, 23:43 MS/extremity: Positive for Wound, negative for acute pain, Exam: 23:43 Constitutional: This is a well developed, well nourished patient who is awake, alert, rt and in no acute distress. Head/Face: Normocephalic, atraumatic. Chest/axilla: Normal chest wall appearance and motion. Nontender with no deformity. No lesions are appreciated. Cardiovascular: Regular rate and rhythm with a normal S1 and S2. No gallops, murmurs, or rubs. Normal PMI, no JVD. No pulse deficits. Respiratory: Lungs have equal breath sounds bilaterally, clear to auscultation and percussion. No rales, rhonchi or wheezes noted. No increased work of breathing, no retractions or nasal flaring. Abdomen/GI: Soft, non-tender, with normal bowel sounds. No distension or tympany. No guarding or rebound. No evidence of tenderness throughout. 23:43 Musculoskeletal/extremity: No swelling noted to the right upper extremity, PICC line insertion site appears to be appropriate. There is a chronic appearing wound with granulation tissue, no purulence noted to the right [place].. Vital Signs: 18:31 BP 153 / 102; Pulse 101; Resp 18; Temp 98.2; Pulse Ox 100% on R/A; Weight 51.71 kg; ph Height 4 ft. 10 in. ; 19:15 BP 140 / 97; Pulse 102; Resp 16; Pulse Ox 100% on R/A; jb4 18:31 Body Mass Index 23.83 (51.71 kg, 147.32 cm) ph MDM: 18:30 Patient medically screened. rt 23:43 Differential Diagnosis Clogged PICC line, chronic wound. Data reviewed: vital signs, rt nurses notes. Test considered but Not performed: Other Details Stable vital signs, no acute infection apparent, do not believe that labs, imaging are indicated. Care significantly affected by the following chronic conditions: Diabetes. Counseling: I had a detailed discussion with the patient and/or guardian regarding the historical points, exam findings, and any diagnostic results supporting the discharge/admit diagnosis, the need for outpatient follow up. ED course: PICC line flushed without difficulty with Cathflo. Patient stable for outpatient follow-up.. 02/18 18:41 Order name: Dressing - Wound; Complete Time: 19:06 rt Administered Medications: 19:06 Drug: Cathflo Activase IV Thrombolytics 2 mg IV Thrombolytics once; into each catheter kc6 lumen, may repeat once Route: IV Thrombolytics; 19:06 Drug: diphenhydrAMINE PO 25 mg PO once Route: PO; kc6 Disposition Summary: 02/19/24 18:41 Discharge Ordered Notes: Location: Home rt Problem: new rt Symptoms: have improved rt Condition: Stable rt Diagnosis - PICC line complication rt Followup: rt - With: Private Physician - When: 2 - 3 days - Reason: Discharge Instructions: - Discharge Summary Sheet rt - PICC Home Care Guide rt Forms: - Medication Reconciliation Form rt - Antibiotic Education rt - Prescription Opioid Use rt - Patient Portal Instructions rt - Leadership Thank You Letter rt Signatures: Linda Lara RN RN ph Kelsey Chavez RN RN kc6 Chung Nuno MD MD rt
[2024-02-19] MEDS ORDERED: ALTEPLASE 2 MG/VIAL IV ONE (18:43)
[2024-02-19] MEDS ORDERED: DIPHENHYDRAMINE 25 MG TAB/CAP ONE (18:43)
[2024-02-19] MEDS ORDERED: WATER FOR INJ,STERILE 10 ML ONE (18:47)
[2024-02-19 19:45] VITALS: BP 140/97; TEMP 98.2; O2SAT 100
== END 2024-02-19 19:17 | disposition home or self-care (01) ==
LOC: ER 18:06
PROC: 3E043GC Introduction of Other Therapeutic Substance into Central Vein, Percutaneous Approach (ICD-10-PCS; principal; 2024-02-19)
DX: T82.898A Other specified complication of vascular prosthetic devices, implants and grafts, initial encounter (principal); E11.40 Type 2 diabetes mellitus with diabetic neuropathy, unspecified; M19.90 Unspecified osteoarthritis, unspecified site; Z88.0 Allergy status to penicillin; Z88.2 Allergy status to sulfonamides; Z88.8 Allergy status to other drugs, medicaments and biological substances; Z91.018 Allergy to other foods
CPT/HCPCS: 92977; 99284; 36593; J2997

== ENCOUNTER 2024-08-31 12:51 | Emergency (ER) | payer OTHER ==
[2024-08-31] MEDS ORDERED: NA CHLORIDE 0.9% 1,000 ML ONE (13:07)
[2024-08-31 13:57] LABS: Absolute Basophils 0.1 K/uL (0-0.5); Absolute Eosinophils 0.2 K/uL (0-0.5); Absolute Monocytes 0.4 K/uL (0.1-1.3); Absolute Neutrophil 8.5 K/uL (1.8-8.0); Basophils % 0.6 % (0-1.3); Eosinophils % 1.8 % (0-4.4); Hematocrit 32.4 % (36.0-45.0); Hemoglobin 10.4 g/dL (12.0-15.0); MCH 28.4 pg (27.0-35.0); MCHC 32.1 g/dL (32.0-36.0); MCV 88.3 fL (80-100); Monocytes % 3.5 % (3.3-12.3); Neutrophils % 84.1 % (41.7-73.7); Platelets 385 thou/uL (152-406); RBC Red Blood Cell Count 3.67 M/uL (3.86-4.86); Red Cell Distribution Width 14.4 % (12.1-15.2)
[2024-08-31] MEDS ORDERED: ONDANSETRON 4 MG/2 ML VIAL ONE (14:13)
[2024-08-31 14:20] LABS: Albumin 2.9 g/dL (3.4-5.0); Albumin/Globulin Ratio 0.6 (1.1-1.8); Alkaline Phosphatase 104 U/L (45-117); BUN Blood Urea Nitrogen 40 mg/dL (7-18); Bilirubin Direct 0.2 mg/dL (0-0.2); Bilirubin Indirect, Calculated 0.6 mg/dL (0.2-0.8); Bilirubin Total 0.8 mg/dL (0.2-1.0); Globulin 4.8 g/dL (2.3-3.5); Glomerular Filtration Rate 67 ml/min (=/>90); Lipase 36 U/L (13-75); Phosphorus 3.7 mg/dL (2.5-4.9); Protein, Total 7.7 g/dL (6.4-8.2); Sodium Level 130 mEq/L (136-145)
[2024-08-31 14:22] LABS: Anion Gap 23.8 mEq/L (5.0-15.0); Glucose Level 643 mg/dL (74-106); Potassium 5.8 mEq/L (3.5-5.1)
[2024-08-31 14:23] LABS: BETA HYDROXYBUTYRATE > 4.50 mmol/L (0.02-0.27)
[2024-08-31 14:24] LABS: Bicarbonate 9 mEq/L (21-32)
[2024-08-31 14:25] LABS: ALT/SGPT < 14 U/L (13-56); AST/SGOT < 10 U/L (15-37)
[2024-08-31 14:31] LABS: Arterial Blood Carboxyhemoglob 2.3 % (0-1.5); Blood Gas Oxyhemoglobin 84.1 % (94-97); Blood Gas THB 10.5 g/dl (12-18); Blood O2 Saturation 87.7 % (92-98.5)
--- NOTE | 2024-08-31 14:43 | EDPHYS ---
Physician Documentation [facility] Name: Cristina Wheeler Age: 34 yrs Sex: Female : 1990 Arrival Date: 08/31/2024 Time: 12:51 Bed 11 Private MD: ED Physician William Hayes HPI: 08/31 20:06 This 34 yrs old Female presents to ER via EMS with complaints of High Blood Sugar. ms3 20:06 Cristina Wheeler, a 34-year-old female, presents to the emergency department via ms3 [facility]. She reports being alerted by her Omnipod between 1:00 and 3:00 a.m. and noticed at 8:00 a.m. that the Omnipod had switched from automatic to manual mode, displaying a high reading. She administered a bolus around 8:10 a.m. but does not recall the exact amount. She has type 1 diabetes and is currently learning to manage her condition. She describes burning sensation during urination and cloudy urine. She mentions a fracture in November and having a halo since April. Her current dietary management includes attempting to limit carbohydrate intake to 30 carbs, usually requiring 6 units of insulin.. 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 - Infectious Disease History:: Denies. - Social history:: Smoking status: Reported history of juuling and/or vaping. ROS: 20:06 Constitutional: Negative for fever, and chills. Cardiovascular: Negative for chest ms3 pain, and palpitations. Respiratory: Negative for shortness of breath, cough, wheezing, and pleuritic chest pain, 20:06 Skin: Negative for injury, rash, and discoloration, 20:06 Abdomen/GI: Positive for nausea, 20:06 MS/extremity: Positive for Right leg pain, Exam: 13:25 ECG was reviewed by the Attending Physician. ms3 20:06 Constitutional: This is a well developed, well nourished patient who is awake, alert, ms3 and in no acute distress. Respiratory: Lungs have equal breath sounds bilaterally, clear to auscultation and percussion. No rales, rhonchi or wheezes noted. No increased work of breathing, no retractions or nasal flaring. Abdomen/GI: Soft, non-tender, with normal bowel sounds. No distension or tympany. No guarding or rebound. No evidence of tenderness throughout. 20:06 Cardiovascular: Rate: tachycardic, Rhythm: regular, Pulses: no pulse deficits are appreciated, Heart sounds: normal, normal S1and S2, 20:06 Musculoskeletal/extremity: Halo in place on right leg. Vital Signs: 12:56 BP 102 / 53; Pulse 116; Resp 16; Temp 97.8; Pulse Ox 100% ; Weight 45.36 kg; Height 4 me1 ft. 11 in. ; Pain 10/10; 14:00 BP 118 / 58; Pulse 119; Resp 20; Pulse Ox 100% ; me1 15:00 BP 109 / 51; Pulse 116; Resp 19; Pulse Ox 100% ; me1 16:00 BP 118 / 60; Pulse 120; Resp 16; Pulse Ox 100% ; me1 16:45 BP 115 / 58; Pulse 125; Resp 16; Temp 98.2; Pulse Ox 99% ; me1 12:56 Body Mass Index 20.20 (45.36 kg, 149.86 cm) me1 12:56 Pain Scale: Adult me1 MDM: 13:03 Medical Screening Exam initiated ms3 20:06 Differential diagnosis: DKA, Hyperglycemia. Data reviewed: vital signs, nurses notes, ms3 and as a result, I will Transfer patient as Becky is at the ICU capacity. Consideration of Admission/Observation Patient transferred to [facility]. Management of patient was discussed with the following: Tube Winder Hand: Label Remover, Dr Mike. I considered the following discharge prescriptions or medication management in the emergency department Medications were administered in the Emergency Department. See MAR. Care significantly affected by the following chronic conditions: Diabetes. Counseling: I had a detailed discussion with the patient and/or guardian regarding the historical points, exam findings, and any diagnostic results supporting the discharge/admit diagnosis, lab results, the need to transfer to another facility, No ICU capacity at [facility]. ED course: Patient started on insulin drip. Discussed case with Dr. Mike and he accepts patient at [facility] ICU. Discussed necessity for transfer with patient and she agrees. All questions were answered. Patient remained in critical but stable condition in the emergency department.. 08/31 13:04 Order name: BETA HYDROXYBUTYRATE; Complete Time: 14:39 ms3 08/31 13:04 Order name: Basic Metabolic Panel; Complete Time: 14:39 ms3 08/31 13:04 Order name: CBC with Diff; Complete Time: 14:18 ms3 08/31 13:04 Order name: Hepatic Function; Complete Time: 14:39 ms3 08/31 13:04 Order name: Lipase; Complete Time: 14:39 ms3 08/31 13:04 Order name: Phosphorus; Complete Time: 14:39 ms3 08/31 13:04 Order name: ABG: VENOUS blood gas; Complete Time: 14:39 ms3 08/31 16:14 Order name: Glucose, Ancillary Testing; Complete Time: 16:55 EDMS 08/31 13:04 Order name: EKG; Complete Time: 13:04 ms3 08/31 13:04 Order name: Cardiac monitoring; Complete Time: 13:18 ms3 08/31 13:04 Order name: EKG - Nurse/Tech; Complete Time: 13:17 ms3 08/31 13:04 Order name: IV Saline Lock; Complete Time: 13:45 ms3 08/31 13:04 Order name: NPO; Complete Time: 13:10 ms3 08/31 13:04 Order name: O2 Per Protocol; Complete Time: 13:11 ms3 08/31 13:04 Order name: O2 Sat Monitoring; Complete Time: 13:11 ms3 08/31 16:55 Order name: Glucose Level; Complete Time: 17:03 ms3 EC:25 Rate is 115 beats/min. Rhythm is regular. QRS [place] is Normal. DE interval is normal. ms3 QRS interval is normal. Clinical impression: NSR w/ Non-specific ST/T Changes. Interpreted by me. Reviewed by me. Administered Medications: 13:50 Drug: NS 0.9% IV 1000 ml IV at 1000 ml once; to be given as a bolus over 60 minutes me1 Route: IV; Rate: 1000 ml; Site: left hand; 16:04 Follow up: Response: No adverse reaction; IV Status: Completed infusion; IV Intake: sd1 1000ml 14:20 Drug: Ondansetron IVP 4 mg IVP once; over 2 minutes Route: IVP; Site: left hand; [facility] 14:20 Follow up: Response: No adverse reaction; Nausea is decreased [facility] [place] 14:53 Drug: Insulin Drip - (Insulin Regular Human IVP 100 units, NS 0.9% IV 100 ml) IV at [facility] calculated rate continuous; Standard concentration 1unit/ml; Dose for DKA is 0.1 units/kg/hr {Co-Signature: ko1 (Danuta Campos RN).} {Note: 5 units/hr.} Route: IV; Rate: 5 units/hr; Site: left hand; 16:49 Follow up: IV Status: Infusion continued upon transfer [facility] [place] [place] 14:54 Drug: NS 0.9% IV 2000 ml IV at 250 ml/hr once; to be given as a bolus over 60 minutes [facility] Route: IV; Rate: 250 ml/hr; Site: left hand; 16:49 Follow up: IV Status: Infusion continued upon transfer [facility] [place] Point of Care Testing: Blood Glucose: 16:04 Blood Glucose: 497 mg/dL; sd1 Ranges: Critical Glucose Levels:Adult <50 mg/dl or >400 mg/dl <40 mg/dl or >180 mg/dl Disposition Summary: 08/31/24 14:42 Transfer Ordered Notes: Transfer Location: [facility] ms3 Reason: Higher level of care ms3 Condition: Stable ms3 Problem: new ms3 Symptoms: are unchanged ms3 Accepting Physician: Dr Mike(08/31/24 17:03) [facility] Diagnosis - DKA ms3 - Tachycardia, unspecified ms3 Forms: - Medication Reconciliation Form ms3 - SBAR form ms3 Critical care time excluding procedures: 20:06 Critical care time: Bedside Care: 35 minutes, Consultation: 5 minutes. Total time: 40 ms3 minutes Signatures: Dispatcher [employer] William Forte DO DO ms3 Shonda Rodríguez RN RN sd1 Danuta Campos RN ko1 Corrections: (The following items were deleted from the chart) 15:15 14:42 Dr ms3 ms3 17:03 15:15 Hayjeni ms3 me1
--- NOTE | 2024-08-31 14:43 | ER ---
Nurse's Notes [facility] Name: Cristina Wheeler Age: 34 yrs Sex: Female : 1990 Arrival Date: 08/31/2024 Time: 12:51 Bed 11 Private MD: Diagnosis: DKA;Tachycardia, unspecified Presentation: 08/31 12:56 Chief complaint: EMS states: toned out for high blood sugar, n/v and painful urination. me1 States blood sugar has been reading "hi" since last night. Reports burning with urination and that her urine is cloudy. Patient does have a halo to her right lower leg since April for a nonhealing fracture that happened in November. Nausea/vomiting that started today. Coronavirus screen: Vaccine status: Patient reports receiving the 2nd dose of the covid vaccine. Ebola Screen: No symptoms or risks identified at this time. Initial Sepsis Screen: Does the patient meet any 2 criteria? HR > 90 bpm. Risk Assessment: Do you want to hurt yourself or someone else? Patient reports no desire to harm self or others. Onset of symptoms is unknown. 12:56 Method Of Arrival: EMS: [facility] oh1 12:56 Acuity: KM 3 me1 16:31 Initial Sepsis Screen: Does the patient have a suspected source of infection?. oh1 Triage Assessment: 13:02 General: Appears uncomfortable, slender, unkempt, well developed, Behavior is calm, me1 cooperative, appropriate for age. Pain: Complains of pain in right [place] Pain does not radiate. Pain currently is 10 out of 10 on a pain scale. Quality of pain is described as aching, Pain began gradually, Is continuous, chronic. EENT: No signs and/or symptoms were reported regarding the EENT system. Neuro: Level of Consciousness is awake, alert, obeys commands, Oriented to person, place, time, situation, Appropriate for age. Cardiovascular: Patient's skin is warm and dry. Respiratory: Airway is patent Respiratory effort is even, unlabored, Respiratory pattern is regular, symmetrical. GI: No signs and/or symptoms were reported involving the gastrointestinal system. : Reports burning with urination. Derm: Skin with poor turgor Skin is pale. Musculoskeletal: Halo to RLE since April, original non healing fracture happened in November 2023. MATERIALS CLERK: 13:02 LMP N/A - Depo-provera, Not me1 Historical: - Allergies: 13:02 flu medication; me1 13:02 PENICILLINS; me1 13:02 Spinach; me1 13:02 Sulfa (Sulfonamide Antibiotics); me1 - PMHx: 13:02 Arthritis; Diabetes - IDDM; neuropathy; me1 - PSHx: 13:02 r knee SX; right leg; me1 - Immunization history:: Adult Immunizations unknown. - Infectious Disease History:: Denies. - Social history:: Smoking status: Reported history of juuling and/or vaping. Screenin:07 [facility] ED Fall Risk Assessment (Adult) History of falling in the last 3 months, me1 including since admission No falls in past 3 months (0 pts) Confusion or Disorientation No (0 pts) Intoxicated or Sedated No (0 pts) Impaired Gait Yes (1 pt) Mobility Assist Device Used Yes (1 pt) Altered Elimination No (0 pt) Score/Fall Risk Level 0 - 2 = Low Risk Maintained a safe environment, Provided non-skid footwear, Hourly rounding (assess needs \\T\\ fall precautionary measures) done. Abuse screen: Denies threats or abuse. Nutritional screening: No deficits noted. Tuberculosis screening: No symptoms or risk factors identified. Assessment: 13:07 Reassessment: See triage assessment. me1 Vital Signs: 12:56 BP 102 / 53; Pulse 116; Resp 16; Temp 97.8; Pulse Ox 100% ; Weight 45.36 kg; Height 4 me1 ft. 11 in. ; Pain 10/10; 14:00 BP 118 / 58; Pulse 119; Resp 20; Pulse Ox 100% ; me1 15:00 BP 109 / 51; Pulse 116; Resp 19; Pulse Ox 100% ; me1 16:00 BP 118 / 60; Pulse 120; Resp 16; Pulse Ox 100% ; me1 16:45 BP 115 / 58; Pulse 125; Resp 16; Temp 98.2; Pulse Ox 99% ; me1 12:56 Body Mass Index 20.20 (45.36 kg, 149.86 cm) me1 12:56 Pain Scale: Adult oh1 ED Course: 12:53 Patient arrived in ED. eb 12:56 William Hayes DO is Attending Physician. ms3 12:56 Shonda Rodríguez, RN is Primary Nurse. me1 13:02 Triage completed. me1 13:02 Arm band placed on Patient placed in an exam room. me1 13:07 Patient has correct armband on for positive identification. Bed in low position. Call me1 light in reach. Side rails up X2. Provided Education on: POC. Verbalized understanding.. Client placed on continuous cardiac and pulse oximetry monitoring. NIBP monitoring applied. Pulse ox on. NIBP on. 13:07 No provider procedures requiring assistance completed. me1 13:44 EKG done, by ED staff, reviewed by William Hayes DO. me1 13:45 Initial lab(s) drawn, by oh, sent to lab. Inserted saline lock: 24 gauge in left hand, me1 using aseptic technique. 13:45 BETA HYDROXYBUTYRATE Sent. me1 13:45 Basic Metabolic Panel Sent. me1 13:45 CBC with Diff Sent. me1 13:45 Hepatic Function Sent. me1 13:45 Lipase Sent. me1 13:45 Phosphorus Sent. me1 14:16 ABG: VENOUS blood gas Sent. me1 14:45 initiated a transfer with Tala from the [facility]. eb 14:48 initiated a transfer with Dianne Paez from the [facility] at the request of eb the patient / [facility] is at ICU saturation . 15:[address] Lee the director fraud correctional agency director for [facility] with Dr. Hayes for patient transfer consultation. 15:30 administrative approval given by Tala Farley/ patient has been accepted to [facility] ICU Rm 209/ Dr. Jesus Lawrence has accepted the patient in transfer / report to be called to [phone]. 16:31 Patient transferred, IV remains in place. me1 Administered Medications: 13:50 Drug: NS 0.9% IV 1000 ml IV at 1000 ml once; to be given as a bolus over 60 minutes me1 Route: IV; Rate: 1000 ml; Site: left hand; 16:04 Follow up: Response: No adverse reaction; IV Status: Completed infusion; IV Intake: me1 1000ml 14:20 Drug: Ondansetron IVP 4 mg IVP once; over 2 minutes Route: IVP; Site: left hand; me1 14:20 Follow up: Response: No adverse reaction; Nausea is decreased me1 14:53 Drug: Insulin Drip - (Insulin Regular Human IVP 100 units, NS 0.9% IV 100 ml) IV at oh1 calculated rate continuous; Standard concentration 1unit/ml; Dose for DKA is 0.1 units/kg/hr {Co-Signature: ko1 (Danuta Campos RN).} {Note: 5 units/hr.} Route: IV; Rate: 5 units/hr; Site: left hand; 16:49 Follow up: IV Status: Infusion continued upon transfer me1 14:54 Drug: NS 0.9% IV 2000 ml IV at 250 ml/hr once; to be given as a bolus over 60 minutes oh1 Route: IV; Rate: 250 ml/hr; Site: left hand; 16:49 Follow up: IV Status: Infusion continued upon transfer me1 Medication: 13:07 VIS not applicable for this client. oh1 Point of Care Testing: Blood Glucose: 16:04 Blood Glucose: 497 mg/dL; [facility] Ranges: Intake: 16:04 IV: 1000ml; Total: 1000ml. oh1 Outcome: 14:42 ER care complete, transfer ordered by . ms3 16:31 Transferred by ground EMS to [facility], Note: Report called to me1 YOAN Chacon at [facility] ICU, room 209 16:31 Condition: stable 16:31 Instructed on the need for transfer, 17:03 Patient left the ED. [facility] Signatures: Tala Bridges Marcus, DO DO ms3 Shonda Rodríguez RN RN oh1 Danuta Campos RN ko1 Corrections: (The following items were deleted from the chart) 13:51 13:45 Inserted saline lock: 24 gauge in right hand, using aseptic technique. oh1 me1
[2024-08-31] MEDS ORDERED: NA CHLORIDE 0.9% 100 ML ONE (14:49)
[2024-08-31] MEDS ORDERED: NA CHLORIDE 0.9% 2,000 ML ONE (14:49)
[2024-08-31] MEDS ORDERED: INSULIN REGULAR (HUMAN) 100 UNIT/ML ONE (14:51)
[2024-08-31 17:18] VITALS: BP 115/58; TEMP 98.2; O2SAT 99
--- NOTE | 2024-09-06 13:13 | EKG ---
Test Date: 2024-08-31 Test Time: 13:15:41 [place]: MEASUREMENT RESULTS: Intervals: Rate: 115 SC: 126 QRSD: 70 QT: 314 QTc: 434 [place]: P: 58 SC: 126 QRS: 88 T: 57 INTERPRETIVE STATEMENTS: Sinus tachycardia with fusion complexes Otherwise normal ECG Compared to ECG 01/30/2024 09:46:35 Fusion complex(es) now present Right-axis deviation no longer present Myocardial infarct finding no longer present Electronically Signed On 09-06-24 13:03:53 MANAGER MARKETING SALES by Osbaldo Talbert
== END 2024-08-31 17:03 | disposition short-term general hospital (02) ==
LOC: ER 12:51
DX: E10.10 Type 1 diabetes mellitus with ketoacidosis without coma (principal); R00.0 Tachycardia, unspecified
CPT/HCPCS: 96365; 96361; 85025; 80048; 36415; 84100; 82947; 80076; 83690; 82010; 82805; 96375; 99285; 96366; J2405; J7030 ×2; 93005